=== PATIENT | male | born 1945 | race Two or more races ===

== ENCOUNTER 2024-04-04 20:35 | Inpatient (IN) | payer MEDICARE, OTHER, SELFPAY ==
[2024-04-04] VITALS (7 sets, daily range): BP systolic 115–154; BP diastolic 54–102
[2024-04-04 17:05] LABS: % Basophils 0.6 % (0-2); % Eosinophils 0.8 % (0-6); % Immature Granulocytes 0.6 % (0-0.5); % Lymphocytes 13.7 % (20.5-51.1); % Monocytes 7.4 % (1.7-9.3); % Neutrophils 76.9 % (42.2-75.2); Absolute Basophils 0.1 10^3/uL (0-0.2); Absolute Eosinophils 0.1 10^3/uL (0-0.7); Absolute Immature Granulocytes 0.1 10^3/uL (0-0.05); Absolute Lymphocytes 2.2 10^3/uL (1.2-3.4); Absolute Monocytes 1.2 10^3/uL (0.1-0.6); Absolute Neutrophils 12.6 10^3/uL (1.4-6.5); Hematocrit 33.1 % (39.0-52.0); Hemoglobin 10.9 g/dL (13.0-18.0); Mean Corp Hgb Conc. 32.9 g/dL (33.0-37.0); Mean Corpuscular Hgb 29.3 pg (27.0-31.0); Mean Platelet Volume 8.8 fL (7.4-10.4); Nucleated Red Blood Cells % 0 % (-); Platelet Count 515 10^3/uL (130-400); Red Blood Cell Count 3.72 10^6/uL (4.70-6.10); Red Cell Dist. Width 14.2 % (11.5-14.5); White Blood Cell Count 16.3 10^3/uL (4.8-10.8)
[2024-04-04 17:14] LABS: Lactic Acid 1.1 mmol/L (0.7-2.0)
[2024-04-04 17:17] LABS: ALT (SGPT) 16 U/L (0-50); AST (SGOT) 22 U/L (17-59); Albumin 3.5 g/dl (3.5-5.0); Alkaline Phosphatase 89 U/L (38-126); Blood Urea Nitrogen 20 mg/dl (9-20); Calcium 9.4 mg/dl (8.4-10.2); Carbon Dioxide 29 mmol/L (22-30); Chloride 94 mmol/L (98-107); Glucose 95 mg/dl (70-99); Sodium 136 mmol/L (135-145); Total Bilirubin 0.5 mg/dl (0.2-1.3); Total Protein 6.6 g/dl (6.3-8.2); eGFR > 60.00
--- NOTE | 2024-04-04 18:46 | ED.GENMED ---
History of Present Illness
General
Chief Complaint: Abnormal Lab Value
Source: records, family and ambulance crew
Time Seen by Provider: 04/04/24 17:56
History of Present Illness
History of Present Illness:
78yoM with a history of hypertension, hyperlipidemia, insulin-dependent diabetes, peripheral vascular disease, and CKD presenting via EMS for abnormal outpatient labs. Patient is currently a resident at [facility]. Patient started to become
confused and sluggish today which he typically gets when he has an infection. He had outpatient blood work today which showed a leukocytosis. He was sent to the ED for evaluation. Daughter states he has a history of chronic wounds to his
bilateral legs. He has had multiple recent admissions at [facility] for wound infections.
Phy Exam
General Physical Exam
General Presentation: no apparent distress
General age: appears stated age
General Skin: warm and dry
General Habitus: normal
General Mental: alert
Cardiovascular Exam
Cardiovascular Exam: regular rate/rhythm
Pulmonary Exam
Pulmonary Exam: lungs clear, no respiratory distress, no crackles and no wheezing
Neurological Exam
Neurological Exam: alert and confused
Skin Exam
Skin Exam: warm/dry and other (Open wounds noted to bilateral lower extremities with foul smelling discharge)
Psychiatric Exam
Psychiatric Exam: agitated
Course
Orders/Labs/Results
Orders:
Orders
04/04/24 16:51
Complete Blood Count/With Diff Urgent
Comprehensive Metabolic Panel Urgent
Lactic Acid Urgent
04/04/24 19:05
0.9% Sodium Chloride 1000 ml [Nss] 1,000 ml IV BOLUS
Piperacillin/Tazo 4.5 Gram [Zosyn] 4.5 gram in 100 ml IV NOW
04/04/24 19:45
Blood Culture Urgent
MICHEAL Source: Blood/Venous
Specimen Description:
Wound Culture [Wound/Abscess/Other Culture] Urgent
MICHEAL Source: Foot
Specimen Description: Right
Date Specimen was Collected: 04/04/24
Time Specimen was Collected: 19:15
04/04/24 19:46
Urinalysis Reflex To Culture Urgent
Date Specimen was Collected: 04/04/24
Time Specimen was Collected: 19:42
Urine Microscopic Reflex Cult Urgent
Urine Culture Urgent
MICHEAL Source: U
Specimen Description:
Date Specimen was Collected: 04/04/24
Time Specimen was Collected: 19:42
04/04/24 20:11
Vancomycin [Vancocin] 2,000 mg 0.9% Sodium Chloride 500 ml [Nss] 500 ml IV NOW
04/04/24 20:23
Admit/Transfer Patient As Directed
Co-Sign Provider:
Level of Care: Inpatient admission
Assign to:: Medical/Surgical
Physician / Group: ezra
Diagnosis: b/l wound infection
Reason for Hospitalization: b/l wound infection
Expected length of stay greater than two midnights?: Yes
ELOS- Estimated Length of Stay in days: 3
I certify the patient meets the requirements for IP care: Yes
PRN Pain Medication Management As Directed
May give lesser potent ordered pain med per pt: Yes
preference::
Protocol:: Medication orders for pain may be administered in a
manner that supports deferring to patient preference
when the pt is:
- Requesting an ordered lesser potent pain medication.
Least to most potent pain medications are defined
as: acetaminophen < NSAID < tramadol < opioids
(morphine, oxycodone, hydromorphone).
- Requesting a lesser dose of the same medication IF
ORDERED.
- Requesting a less intrusive route of administration
if both routes are prescribed by the provider (PO <
IV).
04/04/24 20:25
Code Status As Directed
Resuscitation Status: Full Code
04/04/24 20:28
Medical Records Request [Obtain Records] As Directed
Dates of Information to be Released: all
Type of Information Requested: Entire Record
Obtain Records from: [facility]
04/04/24 21:49
Blood Culture Routine
MICHEAL Source: Blood/Venous
Specimen Description:
04/05/24 00:20
Acetaminophen [Tylenol] 650 mg PO Q6HPRN PRN
Dextrose 50%-Water [Dextrose 50% Syringe] 12.5 grams IV [id number] PRN
Glucagon [GlucaGen] 1 mg IM PRN PRN
HydrALAZINE [Apresoline] 10 mg PO TID
METFORMIN HCl [Glucophage] 1,000 mg PO BIDWMEAL
Piperacillin/Tazo 3.375 Gram [Zosyn] 3.375 gram in 50 ml IV Q6H
VANCOMYCIN Pharmacy to Dose [VANCOCIN Pharmacy to Dose] 1 each Pharmacy To Prepare [Call Pharmacy To Prepare] 0 ml IV PER PROTOCOL
insulin degludec [Tresiba FlexTouch U-100] 14 unit SC HS
zinc oxide 1 applic TOPICAL TID
04/05/24 00:20
WOUND/OSTOMY CONSULT Routine
Reason for Consult: b/l LE lymphedema/wound
Activity As Directed
Activity Level: Out of Bed-Early Mobility
Bedside Glucose Monitoring As Directed
Frequency: AC&HS
Additional Instructions:: Change to q6h if pt on TPN, tube feeding or not eating
Intake/ Output As Directed
Frequency: Per unit guidelines
Vital Signs As Directed
Frequency: Per unit guidelines
Weight As Directed
Frequency: Daily
Ot Eval And Treat Routine
Pt Eval And Treat Routine
Activity Level: As Tolerated
DX Deep Vein Thrombosis Video Routine
04/05/24 02:00
Doxazosin Mesylate [Cardura] 2 mg PO HS
Melatonin 5 mg PO HS
04/05/24 Breakfast
1800 calorie (15 carb) Diabetic
At Your Request: Non-Participating
Does patient need a safe tray?: No
Basic Metabolic Panel IN AM
Complete Blood Count/No Diff IN AM
Glycohemoglobin (HgbA1c) IN AM
04/05/24 07:30
Insulin Aspart Corrective Low [Novolog Flexpen-Low Resistance] See Protocol SC AC
04/05/24 08:00
Aspirin Low Dose EC [Aspir Low (Enteric Coated)] 81 mg PO DAILY
Carvedilol [Coreg] 25 mg PO BID
Furosemide [Lasix] 40 mg PO DAILY
Miconazole Nitrate [Desenex/Mitrazol/Zeasorb] 1 applic TOPICAL BID
Pioglitazone HCl [Actos] 15 mg PO DAILY
Tamsulosin [Flomax] 0.4 mg PO DAILY
balsam zbigniew-castor oil [Venelex] 1 applic TOPICAL BID
magnesium oxide [MagOx] 400 mg PO BID
omeprazole 20 mg PO DAILY
04/05/24 18:00
Enoxaparin Sodium [Lovenox] 40 mg SC QPM
04/06/24 06:00
Basic Metabolic Panel IN AM
Complete Blood Count/No Diff IN AM
04/07/24 06:00
Basic Metabolic Panel IN AM
Complete Blood Count/No Diff IN AM
04/08/24 06:00
Basic Metabolic Panel IN AM
Complete Blood Count/No Diff IN AM
04/09/24 06:00
Basic Metabolic Panel IN AM
Complete Blood Count/No Diff IN AM
Abnormal Lab Results
04/04/24 04/04/24
16:51 19:46
WBC 16.3 H 10^3/uL
(4.8-10.8)
RBC 3.72 L 10^6/uL
(4.70-6.10)
Hgb 10.9 L g/dL
(13.0-18.0)
Hct 33.1 L %
(39.0-52.0)
MCHC 32.9 L g/dL
(33.0-37.0)
Plt Count 515 H 10^3/uL
(130-400)
Abs Immat Gran (auto) 0.1 H 10^3/uL
(0-0.05)
Absolute Neuts (auto) 12.6 H 10^3/uL
(1.4-6.5)
Absolute Monos (auto) 1.2 H 10^3/uL
(0.1-0.6)
Immature Gran % 0.6 H %
(0-0.5)
Neutrophils % 76.9 H %
(42.2-75.2)
Lymphocytes % 13.7 L %
(20.5-51.1)
Chloride 94 L mmol/L
(98-107)
Creatinine 0.6 L mg/dL
(0.7-1.3)
Urine Ketones Trace A
(Negative)
Urine Bilirubin 1+ A
(Negative)
Urine Bacteria (Reflex) Many A
(Negative)
Urine Glucose 2+ A
(Negative)
Urine Albumin (Reflex) 1+ A
(Neg - Trace)
04/04/24 16:51
04/04/24 16:51
Vital Signs
Initial and Last Documented VS:
Initial Vital Signs
Temp Pulse Resp BP Pulse Ox
98.9 F 81 22 115/75 94
04/04/24 16:38 04/04/24 16:38 04/04/24 16:38 04/04/24 16:38 04/04/24 16:38
Last Documented Vital Signs
Temp Pulse Resp BP Pulse Ox
98.0 F 70 20 107/65 99
04/05/24 00:40 04/05/24 00:40 04/05/24 00:40 04/05/24 00:40 04/05/24 00:40
MDM/Problems Addressed
Differential Diagnosis Includes:
78yoM here with leukocytosis on outpatient labs. History is provided by [facility] staff via phone and daughter. Hx of chronic wounds to lower extremities. Recent admissions at [facility] for the wound infections. Patient is confused/sluggish
which he typically gets when he has an infection. VSS. Open wounds noted on exam with foul smelling discharge. Differential diagnosis includes but is not limited to: Wound infection, cellulitis, abscess, doubt NSTI
Initial ED plan: Labs obtained in triage which show a leukocytosis with a white count of 16. Lactate within normal limits. Wound culture and blood cultures ordered. IV Zosyn and vancomycin ordered. Will admit for further management.
*Critical Care Note
Total Time (30-74mins, 75-104mins- exclusive of procedures): Not Applicable
ED Attending Note
-
Portions of this chart may have been created with voice recognition software.� Occasional wrong word or��sound alike� substitutions may have occurred due to the inherent limitations of voice recognition software.
Discharge Plan
Departure
Patient Disposition: Admit
Date of Disposition: 04/04/24
Time of Disposition: 19:40
Presentation/result/management discussed w/ accepting MD/DO: Hospitalist
Discharge Problem:
Wound infection
Interventions
Interventions:
*Risk Screen - Suicide Last Done: 04/05/24 00:25
*General Assessment Last Done: 04/04/24 16:38
*Neglect/Abuse Screening Last Done: 04/04/24 16:38
ED- Fall Risk Assessment Last Done: 04/04/24 18:03
*ED COVID-19 Vaccine History Last Done: 04/05/24 00:25
*Nursing Disposition Last Done: 04/04/24 23:37
Discharge Date and Time
Discharge Date/Time: 04/04/24 23:37
--- NOTE | 2024-04-04 19:41 | HPS.HSE ---
Addendum entered and electronically signed by Hardeep Ocampo DO 04/04/24 20:44:
Patient seen and examined independently. Agree with findings and plan as set forth by LOGAN Go.
Patient is a 78y M with PMH significant for hypertension, DM-II and chronic LE lymphedema and wounds who presents to ED from local SNF for evaluation of LE wounds and increased confusion. History obtained primarily from his daughter at the
bedside. Patient has been followed for several years at [facility] for his chronic wounds. He was hospitalized there last about one week ago for similar issues. He was treated with Vanco / Zosyn and then discharged on Cipro. Daughter notes that his
symptoms have been worsening since discharge. She states that he had a positive nasal swab for MRSA at [facility].
Ass:
Chronic LE Lymphedema
Chronic Wounds secondary to the above
Acute Wound Infection(s)
Acute TME secondary to the above
ASCVD
DM-II
Benign Hypertension
Normocytic Anemia - ? Type / Chronicity
Chronic Heart Failure - ? Type
Plan:
Admit for further evaluation and treatment.
IV abx with Zosyn and Vancomycin for now. Reported prior positive MRSA swab.
Obtain records from [facility] for culture results, etc.
Wound Care evaluation / local care here.
Follow for clinical improvement.
Continue other usual medications for now for CHF, DM, etc.
Original Note:
Family Physician
-
Family Physician:
Chief Complaint
-
b/l Le wound
History of Present Illness
78yoM with a history of hypertension, hyperlipidemia, insulin-dependent diabetes, peripheral vascular disease, and CKD presented to us with worsening confusion, weak and tired for past few days. patient was noted to have elevated wbc. his wound was
not getting better. patient was just at [facility] with b/l wound infection. patient received vanco and Zosyn in ER, but infectious disease changed the abx to Linezolid and cefepime. he was discharge to rehab on Cipro. daughter stated, his wound did
not got better. he was noted very weak and confused today. his wbc's were elevated which prompted them to send him to the hospital. denied any fever, chills, chest pain, sob.denied MAHAN, dizzy or syncopal episode. denied abdominal pain,n,v,d. denied
dysuria or hematuria.
daughter wants us to following the wound care recommendation from [facility]. he has allergic multiple wound care agents.
patient received iv vanco and Zosyn in ER. admitting for further management.
Medical History
Past Medical History
Past Medical History: Reports Other
Additional Past Medical History:
CKD
BPH
cellulitis
GERD
HLD
lymphedema
PVD
MO
CAD
dermatitis
htn
CHF
osteo
type 2 DM
FRANCESCO
Past Surgical History: Reports Other
Additional Past Surgical History:
cardiac stents
Social History
Tobacco: Former Smoker
Alcohol: Former
Drug: None
Personal: Single
Living: Other (rehab)
Family History
Family History: Not pertinent
Allergies / Home Medications
Allergies reflects when Allergies were last updated in [employer].
Home Medications with original date entered in [employer]
Allergy/Medication List:
Allergies
Allergy/AdvReac Type Severity Reaction Status Date / Time
acetic acid Allergy Unknown Verified 04/04/24 17:46
hydromorphone Allergy Unknown Verified 04/04/24 17:46
iodine Allergy Unknown Verified 04/04/24 17:46
morphine Allergy Unknown Verified 04/04/24 17:46
Home Medications
acetaminophen 325 mg tablet 650 mg PO Q6HPRN PRN mild pain 04/04/24
aspirin 81 mg tablet,delayed release 81 mg PO DAILY 04/04/24
balsam zbigniew-castor oil topical ointment (Venelex topical ointment) 1 applic topical BID 04/04/24
carvedilol 25 mg tablet 25 mg PO BID 04/04/24
doxazosin 2 mg tablet 2 mg PO HS 04/04/24
ergocalciferol (vitamin D2) 1,250 mcg (50,000 unit) capsule 1,250 mcg PO MO 04/04/24
furosemide 40 mg tablet 40 mg PO DAILY 04/04/24
hydralazine 10 mg tablet 10 mg PO TID 04/04/24
insulin aspart U-100 100 unit/mL (3 mL) subcutaneous pen 4 - 10 sliding scale dose SC ACHS 04/04/24
insulin degludec 100 unit/mL (3 mL) subcutaneous pen (Tresiba FlexTouch U-100 insulin) 28 unit SC HS 04/04/24
magnesium oxide 400 mg (241.3 mg magnesium) tablet (MagOx) 400 mg PO BID 04/04/24
melatonin 5 mg tablet 5 mg PO HS 04/04/24
metformin 1,000 mg tablet 1,000 mg PO BIDWMEAL 04/04/24
miconazole nitrate 2 % topical powder (Antifungal (miconazole)) 1 applic topical BID 04/04/24
miconazole nitrate 2 % topical powder (Antifungal (miconazole)) 1 applic topical BID 04/04/24
omeprazole 20 mg tablet,delayed release 20 mg PO DAILY 04/04/24
pioglitazone 15 mg tablet 15 mg PO DAILY 04/04/24
tamsulosin 0.4 mg capsule 0.4 mg PO DAILY 04/04/24
zinc oxide 12 % topical cream 1 applic topical TID 04/04/24
Review of Systems
-
Constitutional: Reports No Symptoms
EENT: Reports No Symptoms
Respiratory: Reports No Symptoms
Cardiac: Reports No Symptoms
Abdomen/GI: Reports No Symptoms
: Reports No Symptoms
Musculoskeletal: Reports No Symptoms
Skin: Reports Other (b/l LE lymphedema, wound)
Neurological: Reports No Symptoms
Endocrine: Reports No Symptoms
Hematologic/Lymphatic: Reports No Symptoms
Psych: Reports No Symptoms
Physical Exam
Vital Signs
Vital Signs
Temp Pulse Resp BP Pulse Ox
98.9 F 82 21 143/54 93
04/04/24 16:38 04/04/24 17:00 04/04/24 17:00 04/04/24 17:00 04/04/24 16:40
Physical Exam
General: Well Developed, Well Nourished and No Apparent Distress
HEENT: NormoCephalic, Moist mucous membranes and Atraumatic
Respiratory: Clear
Cardiac: S1/S2 and Regular Rhythm; No Murmur or Rub
GI: Soft, Non Tender, Non Distended and Normal Bowel Sounds; No Organomegaly
Rectal: Deferred by Provider
Musculoskeletal: No Clubbing, No Cyanosis and No Edema
Skin: No Rash
Neuro: Nonfocal/grossly intact
Laboratory Results
-
04/04/24 16:51
04/04/24 16:51
Laboratory Results
Lactic Acid 1.1 mmol/L (0.7-2.0) 04/04/24 16:51
Total Bilirubin 0.5 mg/dl (0.2-1.3) 04/04/24 16:51
AST 22 U/L (17-59) 04/04/24 16:51
ALT 16 U/L (0-50) 04/04/24 16:51
Alkaline Phosphatase 89 U/L (38-126) 04/04/24 16:51
Data Reviewed
-
Lab Data: Labs Reviewed by me
Impression/Plan
-
#metabolic encephalopathy likely from b/l LE wound infection/chronic lymphedema
-wbc 16.3
-iv Zosyn and vanco continued
-wound car3 consulted
-Tylenol prn for fever
-curve wbc's
-obtain medical records from [facility]
-no narcotics as per family, only Tylenol, Motrin for pain
-blood and wound culture sent from ER
#anemia likely chronic
-hgb 10.9
-no active bleeding
-ctm
#hxt of CAD
-s/p cardiac stents
-asa continued
#essential htn
-Coreg, doxazosin,hydralazine with hold parameter continued
#hxt of CHF
-patient not in acute exacerbation
-strict I &O
-daily weight
-Lasix continued
#type 2 DM
-sliding scale
-Tresiba 14u at hs
-metformin,actos continued
#GERD
-PPI continued
#BPH
-Flomax continued
#DVT Prophylaxis
-Lovenox
#CODE status
-full code
[2024-04-04] MEDS: NSS 1000 IV (19:43)
[2024-04-04] MEDS: ZOSYN 100 IV (19:44)
[2024-04-04 20:27] LABS: Urine Albumin 1+ (Neg - Trace); Urine Bilirubin 1+ (Negative); Urine Character Clear (Clear); Urine Color Yellow; Urine Glucose 2+ (Negative); Urine Ketone Trace (Negative); Urine Leukocyte Negative (Negative); Urine Nitrite Negative (Negative); Urine Occult Blood Negative (Negative); Urine Specific Gravity 1.025 (<1.030); Urine Urobilinogen Negative (Neg - 1+)
[2024-04-04 20:37] LABS: Urine Bacteria Many (Negative); Urine Red Blood Cell 0-2 /HPF (0-2); Urine White Cell 0-2 /HPF (0-5)
[2024-04-04] MEDS: VANCOCIN 540 MG IV (21:39)
[2024-04-05 00:40] VITALS: BP 107/65
--- NOTE | 2024-04-05 00:47 | PTCARENOTE ---
Pt. received from [facility], awake, alert, confused, pulled over from stretcher, b/l legs macerated and bleeding, dressings changed, stage 2 buttocks wound, bed alarm intact, call dias within reach.
[2024-04-05] MEDS: APRESOLINE PO (02:38)
[2024-04-05] MEDS: CARDURA PO (02:39)
[2024-04-05] MEDS: MELATONIN PO (02:39)
[2024-04-05] MEDS: ZOSYN 50 IV ×4 (04:09→23:13)
[2024-04-05] MEDS: FLUSH (NSS) 2 FLUSH IV (04:10)
[2024-04-05 07:05] LABS: Hematocrit 31.4 % (39.0-52.0); Hemoglobin 10.5 g/dL (13.0-18.0); Mean Corp Hgb Conc. 33.4 g/dL (33.0-37.0); Mean Corpuscular Volume 89.7 fL (80.0-94.0); Mean Platelet Volume 8.7 fL (7.4-10.4); Platelet Count 448 10^3/uL (130-400); Red Cell Dist. Width 14.2 % (11.5-14.5); White Blood Cell Count 15.8 10^3/uL (4.8-10.8)
[2024-04-05 07:27] VITALS: BP 150/56
[2024-04-05 07:29] LABS: Blood Urea Nitrogen 18 mg/dl (9-20); Carbon Dioxide 26 mmol/L (22-30); Chloride 97 mmol/L (98-107); Estimated Creatinine Clearance 79 ml/min; Glucose 109 mg/dl (70-99); Potassium 3.8 mmol/L (3.5-5.1); Sodium 135 mmol/L (135-145); eGFR > 60.00
--- NOTE | 2024-04-05 07:45 | PHA.VAN.IN ---
Assessment
- Assessment
Renal Function: Unknown baseline
Renal Function may be Overestimated due to: age
AUC Dosing Plan
- Dosing Variables
Dosing Weight (kg): 84.368
Dosing CrCl (ml/min): 79
Vd coefficient (L/kg): 0.7
- Empiric Dosing
Initial / Loading Dose: 2000mg
Maintenance Regimen: 1000mg q12h
Estimated AUC (mcg*h/mL): 501
Estimated Peak (mcg*h/mL): 29.8
Estimated Trough (mcg/ml): 13.8
Estimated Half Life (H): 9.9
- Monitoring
No levels ordered at this time: consider at steady state
Pharmacokinetics Vancomycin I
- -
Patient Age: 78
Patient Sex: Male
Vancomycin Day #: 1
Indication: Skin And Soft Tissue
Requesting Provider: Lorene [facility]
Height / Weight:
Height 5 ft 9 in
Actual Weight 84.368 kg
IBW in k.7
- Vital Signs / Lab Results
Temp Pulse Resp BP Pulse Ox
98.0 F 70 20 107/65 99
04/05/24 00:40 04/05/24 00:40 04/05/24 00:40 04/05/24 00:40 04/05/24 00:40
Lab Results - Hematology
04/04/24 04/05/24
16:51 06:51
WBC 16.3 H 15.8 H
Lab Results - Chemistry
04/04/24 04/05/24
16:51 06:51
BUN 20 18
Creatinine 0.6 L 0.8
Estimated Creat Clear 79
Albumin 3.5
04/04/24
16:51
Lactic Acid 1.1
Lab Results - Urine
04/04/24
19:46
Urine Nitrite (Reflex) Negative
Leukocyte Esterase Rfl Negative
Urine WBC (Reflex) 0-2
Urine Bacteria (Reflex) Many A
[2024-04-05 08:11] LABS: Glucose - Point of Care 110 mg/dl (70-99)
[2024-04-05] MEDS: FLOMAX 0.4 MG PO (08:17)
[2024-04-05] MEDS: NOVOLOG FLEXPEN-LOW RESISTANCE SC (08:17)
[2024-04-05] MEDS: APRESOLINE 10 MG PO ×3 (08:17→23:22)
[2024-04-05] MEDS: LASIX 40 MG PO (08:18)
[2024-04-05] MEDS: MAG-TAB SR 84 MG PO ×2 (08:18→21:59)
[2024-04-05] MEDS: PROTONIX 40 MG PO (08:18)
[2024-04-05] MEDS: ACTOS 15 MG PO (08:18)
[2024-04-05] MEDS: GLUCOPHAGE 1000 MG PO (08:18)
[2024-04-05] MEDS: ASPIR LOW (ENTERIC COATED) 81 MG PO (08:18)
[2024-04-05] MEDS: DESENEX/MITRAZOL/ZEASORB 1 APPLIC TOPICAL ×2 (09:00→22:00)
[2024-04-05 10:14] LABS: Glycohemoglobin (HgbA1c) 8.1 % (4.0-5.6)
--- NOTE | 2024-04-05 10:29 | W.PN.HOSP.TC ---
Today's Communication/Plan
-
See PN
Assessment / Plan
Assessment / Plan
78yo M with PMHx of DM, HTN, chronic LE wounds with lymphedema, HTN, CHF sent from rehab with AMS, concern for sepsuis 2/2 LE cellulitis. Due to progressive weakness and leukocytosis - brought to ED. Patient also has a long Hx of exessive sleepness
and was not compliant with CPAP at home declining it
A/P:
#sepsis 2/2 toxic metabolic encephalopathy most likely 2/2 LE cellulitis 2/2 PAD
Followed in [facility] - request records
recent admission to [facility] with LE cellulitis, MRSA positive
As per patients daughter - had extensive W/U with eval by [facility] and as per her - patient with not significant PAD
[facility] plastic Sx was managing the patient
Wound care
Bcx and wound Cx sent
Chest XR
#UTI
Recent UTI in [facility]
follow Ucx
#FRANCESCO
non-compliant with BiPAP
Check ABG, might need BiPAP at HS
#Anemia
anemia w/u, check FOBT
#CHF unspecified
hold Lasix until mentation improved
#DM type 2 with circulatory complications
Hold oral hypoglycemics
Accuhecks, Insulin SS, bolus insulin decreased by 50%
#Essential HTN
#cheronic hypomagnesemia
#BPH
#CAD s/p PCI
watch for retention with blaadder scan
cont home meds
DVT ppx lovenox
FUll code
I have spent at least 59min reviewing chart, test results, communication with consultants, family and direct patient care
Anticipated Discharge: > 48 hours
Subjective/Interval History
-
Date of Service: April 05, 2024
Objective Data
-
Labs:
Laboratory Results
04/05/24 04/05/24
06:51 10:21
WBC 15.8 H
Hgb 10.5 L
Hct 31.4 L
Plt Count 448 H
HCO3 Pending
Sodium 135
Potassium 3.8
Chloride 97 L
Carbon Dioxide 26
BUN 18
Creatinine 0.8
Glucose 109 H
Calcium 9.0
Vital Signs:
Vital Signs
Temp Pulse Resp BP Pulse Ox
98.1 F 79 20 150/56 96
04/05/24 07:27 04/05/24 07:27 04/05/24 07:27 04/05/24 07:27 04/05/24 07:27
I&O
04/04/24 04/05/24 04/06/24
06:59 06:59 06:59
Intake Total 50 / 50
Balance 50 / 50
[2024-04-05 11:36] LABS: Glucose - Point of Care 163 mg/dl (70-99)
[2024-04-05 11:55] LABS: B.E. 4.7 mmol/L; HCO3 28.2 mmol/L (21-28); O2 Saturation % 99.3 % (94-98); PCO2 37 mmHg (35-48); PO2 107 mmHg (83-108); pH 7.49 (7.35-7.45)
[2024-04-05] MEDS: COREG 25 MG PO ×2 (12:05→21:58)
[2024-04-05 12:51] LABS: Procalcitonin 0.08 ng/ml (0.0-0.25)
[2024-04-05 13:09] VITALS: BP 146/62; PULSE 89; PULSE 90; O2SAT 94
[2024-04-05] MEDS: NOVOLOG FLEXPEN-LOW RESISTANCE 1 UNITS SC (13:33)
--- NOTE | 2024-04-05 15:11 | CM ---
IA completed with pts daughter via phone.
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
PLAN; Return to [facility] when medically cleared.
[2024-04-05 15:18] VITALS: BP 127/53
[2024-04-05 16:10] LABS: COVID-19 Antigen Negative (Negative)
[2024-04-05 17:02] LABS: Glucose - Point of Care 217 mg/dl (70-99)
[2024-04-05] MEDS: NOVOLOG FLEXPEN-LOW RESISTANCE 2 UNITS SC (17:02)
[2024-04-05] MEDS: LOVENOX 40 MG SC (17:05)
[2024-04-05] MEDS: VANCOCIN 200 IV (17:06)
[2024-04-05 22:00] LABS: Glucose - Point of Care 146 mg/dl (70-99)
[2024-04-05 23:00] VITALS: BP 119/42
[2024-04-05] MEDS: LANTUS 0.14 UNITS SC (23:14)
[2024-04-05] MEDS: MELATONIN 5 MG PO (23:15)
[2024-04-05] MEDS: CARDURA 2 MG PO (23:21)
[2024-04-06] MEDS: ZOSYN 50 IV ×4 (04:53→21:22)
[2024-04-06] MEDS: VANCOCIN 200 IV ×2 (05:28→17:37)
[2024-04-06 06:00] VITALS: BMI 28.7
[2024-04-06 07:00] VITALS: BP 145/52
[2024-04-06 07:51] LABS: Glucose - Point of Care 186 mg/dl (70-99)
[2024-04-06 08:20] LABS: ALT (SGPT) 16 U/L (0-50); AST (SGOT) 23 U/L (17-59); Alkaline Phosphatase 78 U/L (38-126); Blood Urea Nitrogen 17 mg/dl (9-20); Calcium 8.7 mg/dl (8.4-10.2); Carbon Dioxide 26 mmol/L (22-30); Chloride 97 mmol/L (98-107); Estimated Creatinine Clearance 79 ml/min; Glucose 175 mg/dl (70-99); Iron 40 ug/dl (49-181); Magnesium 1.8 mg/dl (1.6-2.3); Sodium 135 mmol/L (135-145); Total Bilirubin 0.7 mg/dl (0.2-1.3); Total Protein 5.8 g/dl (6.3-8.2); eGFR > 60.00
[2024-04-06] MEDS: NOVOLOG FLEXPEN-LOW RESISTANCE 1 UNITS SC ×3 (08:22→17:36)
[2024-04-06] MEDS: PROTONIX 40 MG PO (08:23)
[2024-04-06] MEDS: COREG 25 MG PO ×2 (08:23→21:00)
[2024-04-06] MEDS: MAG-TAB SR 84 MG PO ×2 (08:23→21:00)
[2024-04-06] MEDS: FLOMAX 0.4 MG PO (08:23)
[2024-04-06] MEDS: DESENEX/MITRAZOL/ZEASORB 1 APPLIC TOPICAL ×2 (08:23→21:00)
[2024-04-06] MEDS: ASPIR LOW (ENTERIC COATED) 81 MG PO (08:23)
[2024-04-06] MEDS: APRESOLINE 10 MG PO ×3 (08:23→21:10)
[2024-04-06 08:30] LABS: Percent Saturation 22 % (20-50); Total Iron Binding Capacity 176 ug/dl (261-462)
--- NOTE | 2024-04-06 08:37 | PHA.VAN.FU ---
Vancomycin Assessment / Plan
- Assessment
Renal Function: Stable
In the past 24 hrs, patient has been: Afebrile
Concomitant Antimicrobials: ZOSYN
- Dosing Plan
Continue: 1000MG Q12H
- Monitoring Plan
Peak Level: 04/07 @2030
Trough Level: 04/08 @0530
- Follow Up
Pharmacy will continue to follow.
Vancomycin Follow UP
- -
Patient Age: 78
Patient Sex: Male
Vancomycin Day #: 2
Indication: Skin And Soft Tissue
Requesting Provider: Lorene [facility]
Height / Weight:
Height 5 ft 9 in
Actual Weight 88.167 kg
IBW in k.7
- Vital Signs / Lab Results
Temp Pulse Resp BP Pulse Ox
98.6 F 71 16 145/52 91
04/06/24 07:00 04/06/24 07:00 04/06/24 07:00 04/06/24 07:00 04/06/24 07:00
Lab Results - Hematology
04/04/24 04/05/24
16:51 06:51
WBC 16.3 H 15.8 H
Lab Results - Chemistry
04/04/24 04/05/24 04/06/24
16:51 06:51 07:24
BUN 20 18 17
Creatinine 0.6 L 0.8 0.8
Estimated Creat Clear 79 79
Albumin 3.5 3.0 L
04/04/24
16:51
Lactic Acid 1.1
Microbiology Results
04/04/24 19:45 Gram Stain - Preliminary
Foot - Right
04/04/24 21:49 Blood Culture - Preliminary
Blood/Venous No Growth in 24 hours- Final report to follow
04/04/24 19:45 Blood Culture - Preliminary
Blood/Venous No Growth in 24 hours- Final report to follow
04/05/24 15:49 Influenza Types A & B (JEANNIE) - Final
Nasal Swab Negative for Influenza A & B, NAAT
Negative results must be combined with clinical observations
and patient history.
Nucleic Acid Amplification test (NAAT)performed on the
[employer] platform.
[2024-04-06 09:11] LABS: % Basophils 0.7 % (0-2); % Eosinophils 2.4 % (0-6); % Immature Granulocytes 0.5 % (0-0.5); % Lymphocytes 14.4 % (20.5-51.1); Absolute Basophils 0.1 10^3/uL (0-0.2); Absolute Eosinophils 0.3 10^3/uL (0-0.7); Absolute Immature Granulocytes 0.1 10^3/uL (0-0.05); Absolute Lymphocytes 1.8 10^3/uL (1.2-3.4); Hematocrit 31.4 % (39.0-52.0); Hemoglobin 10.8 g/dL (13.0-18.0); Mean Corp Hgb Conc. 34.4 g/dL (33.0-37.0); Mean Corpuscular Hgb 30.2 pg (27.0-31.0); Mean Corpuscular Volume 87.7 fL (80.0-94.0); Mean Platelet Volume 10.1 fL (7.4-10.4); Nucleated Red Blood Cells % 0 % (-); Platelet Count 385 10^3/uL (130-400); Red Blood Cell Count 3.58 10^6/uL (4.70-6.10); Red Cell Dist. Width 13.9 % (11.5-14.5); Reticulocyte Count 2.5 % (0.4-2.8); White Blood Cell Count 12.2 10^3/uL (4.8-10.8)
[2024-04-06 09:47] LABS: Folate 6.5 ng/ml (2.76-20); Vitamin B12 639 pg/ml (239-931)
[2024-04-06 11:22] LABS: Glucose - Point of Care 188 mg/dl (70-99)
[2024-04-06] MEDS: LASIX 40 MG PO (11:48)
--- NOTE | 2024-04-06 12:02 | W.PN.HOSP.TC ---
Today's Communication/Plan
-
cont Vanco/Zosyn
Lotrimin
Assessment / Plan
Assessment / Plan
78yo M with PMHx of DM, HTN, chronic LE wounds with lymphedema, HTN, CHF sent from rehab with AMS, concern for sepsuis 2/2 LE cellulitis. Due to progressive weakness and leukocytosis - brought to ED. Patient also has a long Hx of excessive sleekness
and was not compliant with CPAP at home declining it. Mentation much improved on Abx
A/P:
#sepsis 2/2 toxic metabolic encephalopathy most likely 2/2 LE cellulitis 2/2 PAD
Followed in [facility] - request records
recent admission to [facility] (discharged 1 week before current admission) with LE cellulitis, MRSA positive
As per patients daughter - had extensive W/U with eval by [facility] and as per her - patient with not significant PAD
[facility] plastic Sx was managing the patient
Wound care
Bcx NTD
wound Cx GNB and S.aureus pending further ID
Chest XR neg for pneumonia
#b/l feet fungal infection
#Excessive nails
As per podiatry - no appropriate instrumentation in the hospital for nail care
Lotrimin BID
#UTI ruled out
Recent UTI in [facility]
Ucx neg
#FRANCESCO
non-compliant with CPAP
ABG w/o CO2 retention
cont home CPAP
#Anemia of chronic disease
check FOBT, follow CBC
#DM type 2 with circulatory complications
Hold oral hypoglycemics
Accuhecks, Insulin SS, bolus insulin decreased by 50%
#CHF unspecified
#Essential HTN
#cheronic hypomagnesemia
#BPH
#CAD s/p PCI
watch for retention with bladder scan
cont home meds
DVT ppx lovenox
FUll code
I have spent at least 59min reviewing chart, test results, communication with consultants, family and direct patient care
Anticipated Discharge: > 48 hours
Subjective/Interval History
-
Date of Service: April 06, 2024
Objective Data
-
Labs:
Laboratory Results
04/06/24
07:24
WBC 12.2 H
Hgb 10.8 L
Hct 31.4 L
Plt Count 385
Sodium 135
Potassium 4.0
Chloride 97 L
Carbon Dioxide 26
BUN 17
Creatinine 0.8
Glucose 175 H
Calcium 8.7
Total Bilirubin 0.7
AST 23
ALT 16
Alkaline Phosphatase 78
Vital Signs:
Vital Signs
Temp Pulse Resp BP Pulse Ox
98.6 F 71 16 145/52 91
04/06/24 07:00 04/06/24 07:00 04/06/24 07:00 04/06/24 07:00 04/06/24 07:00
I&O
04/05/24 04/06/24 04/07/24
06:59 06:59 06:59
Intake Total 50 / 50 850 / 850
Balance 50 / 50 850 / 850
[2024-04-06 15:00] VITALS: BP 144/60
[2024-04-06 16:36] LABS: Glucose - Point of Care 179 mg/dl (70-99)
[2024-04-06] MEDS: LOVENOX 40 MG SC (17:56)
[2024-04-06 21:00] VITALS: BP 153/74
[2024-04-06] MEDS: LOTRIMIN 1% CREAM 1 APPLIC TOPICAL (21:00)
[2024-04-06] MEDS: CARDURA 2 MG PO (21:10)
[2024-04-06] MEDS: MELATONIN 5 MG PO (21:10)
[2024-04-06 21:34] LABS: Glucose - Point of Care 199 mg/dl (70-99)
[2024-04-06] MEDS: LANTUS 0.14 UNITS SC (21:45)
[2024-04-06 23:29] VITALS: BP 122/54
[2024-04-07] MEDS: ZOSYN 50 IV ×4 (03:23→23:09)
[2024-04-07] MEDS: VANCOCIN 200 IV ×2 (05:03→17:13)
[2024-04-07 05:41] VITALS: BMI 29.3
[2024-04-07 07:40] VITALS: BP 93/69
[2024-04-07 07:46] LABS: Glucose - Point of Care 193 mg/dl (70-99)
[2024-04-07] MEDS: NOVOLOG FLEXPEN-LOW RESISTANCE 1 UNITS SC ×2 (08:35→16:26)
[2024-04-07] MEDS: MAG-TAB SR 84 MG PO ×2 (08:37→23:08)
[2024-04-07] MEDS: LASIX PO (08:38)
[2024-04-07] MEDS: COREG PO (08:39)
[2024-04-07] MEDS: FLOMAX 0.4 MG PO (08:39)
[2024-04-07] MEDS: APRESOLINE PO (08:40)
[2024-04-07] MEDS: PROTONIX 40 MG PO (08:40)
[2024-04-07] MEDS: ASPIR LOW (ENTERIC COATED) 81 MG PO (08:40)
[2024-04-07] MEDS: DESENEX/MITRAZOL/ZEASORB 1 APPLIC TOPICAL ×2 (08:41→23:08)
[2024-04-07] MEDS: LOTRIMIN 1% CREAM TOPICAL ×2 (09:03→23:07)
--- NOTE | 2024-04-07 10:52 | W.PN.HOSP.TC ---
Today's Communication/Plan
-
cont ABx pending final wound Cx - then switch to oral and d/c for outpatient plasic f/u
Assessment / Plan
Assessment / Plan
78yo M with PMHx of DM, HTN, chronic LE wounds with lymphedema, HTN, CHF sent from rehab with AMS, concern for sepsuis 2/2 LE cellulitis. Due to progressive weakness and leukocytosis - brought to ED. Patient also has a long Hx of excessive sleekness
and was not compliant with CPAP at home declining it. Mentation much improved on Abx
A/P:
#sepsis 2/2 toxic metabolic encephalopathy most likely 2/2 LE cellulitis 2/2 PAD
Followed in [facility] - request records
recent admission to [facility] (discharged 1 week before current admission) with LE cellulitis, MRSA positive
As per patients daughter - had extensive W/U with eval by [facility] and as per her - patient with not significant PAD
[facility] plastic Sx was managing the patient, this advised to be continued upon d/c
Wound care
Bcx NTD
wound Cx GNB and MRSA pending further ID
Chest XR neg for pneumonia
#b/l feet fungal infection
#Excessive nails
As per podiatry - no appropriate instrumentation in the hospital for nail care
Lotrimin BID
#UTI ruled out
Recent UTI in [facility]
Ucx neg
#FRANCESCO
non-compliant with CPAP
ABG w/o CO2 retention
cont home CPAP
#Anemia of chronic disease
check FOBT, follow CBC
#DM type 2 with circulatory complications
Hold oral hypoglycemics
Accuhecks, Insulin SS, bolus insulin decreased by 50%
#CHF unspecified
#Essential HTN
#cheronic hypomagnesemia
#BPH
#CAD s/p PCI
watch for retention with bladder scan
cont home meds
DVT ppx lovenox
FUll code
I have spent at least 39min reviewing chart, test results, communication with consultants, family and direct patient care
Anticipated Discharge: 24 - 48 hours
Subjective/Interval History
-
Date of Service: April 07, 2024
Objective Data
-
Labs:
Laboratory Results
04/07/24
10:25
WBC Pending
Hgb Pending
Hct Pending
Plt Count Pending
Sodium Pending
Potassium Pending
Chloride Pending
Carbon Dioxide Pending
BUN Pending
Creatinine Pending
Glucose Pending
Calcium Pending
Vital Signs:
Vital Signs
Temp Pulse Resp BP Pulse Ox
98.3 F 80 17 93/69 93
04/07/24 07:40 04/07/24 07:40 04/07/24 07:40 04/07/24 07:40 04/07/24 07:40
I&O
04/06/24 04/07/24 04/08/24
06:59 06:59 06:59
Intake Total 850 / 850 600 / 600
Balance 850 / 850 600 / 600
Review of Systems
-
History Source: Patient
All other systems: Reviewed and negative
Physical Exam
-
General: No Apparent Distress
HEENT: Normocephalic
Respiratory: Clear to Auscultation
GI: Soft, Nontender and Nondistended
Skin: Warm
Neuro: Awake, Alert, Oriented and AO x 3
Psych: Calm and Apparent Dementia
[2024-04-07 10:55] LABS: % Basophils 0.7 % (0-2); % Eosinophils 3.2 % (0-6); % Immature Granulocytes 0.5 % (0-0.5); % Lymphocytes 11.1 % (20.5-51.1); % Monocytes 7.5 % (1.7-9.3); Absolute Basophils 0.1 10^3/uL (0-0.2); Absolute Eosinophils 0.4 10^3/uL (0-0.7); Absolute Immature Granulocytes 0.1 10^3/uL (0-0.05); Absolute Lymphocytes 1.4 10^3/uL (1.2-3.4); Absolute Neutrophils 9.7 10^3/uL (1.4-6.5); Hematocrit 32.3 % (39.0-52.0); Hemoglobin 10.8 g/dL (13.0-18.0); Mean Corp Hgb Conc. 33.4 g/dL (33.0-37.0); Mean Corpuscular Hgb 30.4 pg (27.0-31.0); Mean Platelet Volume 9.1 fL (7.4-10.4); Nucleated Red Blood Cells % 0 % (-); Platelet Count 489 10^3/uL (130-400); Red Blood Cell Count 3.55 10^6/uL (4.70-6.10); White Blood Cell Count 12.6 10^3/uL (4.8-10.8)
[2024-04-07] MEDS: DAKIN'S SOLUTION 0.125% 1/4 STRENGTH 473 ML TOPICAL (12:04)
[2024-04-07 12:08] VITALS: BP 156/66
[2024-04-07 12:27] LABS: Blood Urea Nitrogen 13 mg/dl (9-20); Calcium 8.9 mg/dl (8.4-10.2); Carbon Dioxide 26 mmol/L (22-30); Chloride 93 mmol/L (98-107); Estimated Creatinine Clearance 79 ml/min; Glucose 257 mg/dl (70-99); Magnesium 1.7 mg/dl (1.6-2.3); Potassium 4.2 mmol/L (3.5-5.1); Sodium 133 mmol/L (135-145); eGFR > 60.00
--- NOTE | 2024-04-07 12:48 | WOUNDNOTE ---
L KOO/ANKLE (ANTERIOR)
--- NOTE | 2024-04-07 12:48 | WOUNDNOTE ---
R ANKLE/CALF (MEDIAL)
--- NOTE | 2024-04-07 12:49 | WOUNDNOTE ---
L ANKLE/CALF (POSTERIOR LATERAL)
--- NOTE | 2024-04-07 12:49 | WOUNDNOTE ---
L ANKLE/CALF (LATERAL)
--- NOTE | 2024-04-07 12:50 | WOUNDNOTE ---
R CALF/ANKLE (LATERAL)
--- NOTE | 2024-04-07 12:52 | WOUNDNOTE ---
[facility] RN note: Patient admitted with LE wound infection. Patient admitted from SNF. He was recently at [facility]. As per physician note patient had vascular work up at [place], no significant PAD. Patient follows Dr. Ramirez,
Plastic surgeon at [facility].
See H&P for complete history.
PMH: HTN, IDDM, chronic LE lymphedema, ASCVD, anemia, CHF, PAD, CKD, BPH, cellulitis, dermatitis, FRANCESCO, cardiac stents, former smoker.
Wound Location and type/assessment: Patient admitted with: deep dermal linear stage 2 sacrum. Red sacral/buttocks. Full thickness LE, dorsal proximal foot wounds with necrotic tendon exposed L anterior calf/ankle. Bilateral unstageable heel
pressure injuries with brown eschar. Kavita/scrotal MASD.
Appetite: good.
Pressure redistribution devices in place: Waffle air overlay. Patient's legs contracted. Patient unable to turn self in bed. He frequently scratches his buttocks. Soft heel relief boots.
Plan: Discussed local wound care with patient's daughter. Obtain wound care order, knee high [place] wraps, heel relief boots, air overlay or air mattress from Dr. Hebert. Patient incontinent of urine. Kavita care given, patient turned and wound care
done with help from JOHN York. stated patient screams during wound care but he cannot get anything else for pain besides Tylenol.
Care plan to be updated and will follow as needed.
Note to case management of equipment requested for discharge: Air mattress at if not already in place.
Patient to follow up with his plastic surgeon.
--- NOTE | 2024-04-07 13:05 | W.PN.UPDATE ---
Update Note
Progress Note Update
as per wound care - b/l dry gangrene on heels - XR heels
US arterial of LE with suspicion for underlying PAD
[2024-04-07] MEDS: NOVOLOG FLEXPEN-LOW RESISTANCE 2 UNITS SC (13:19)
[2024-04-07 13:20] LABS: Glucose - Point of Care 232 mg/dl (70-99)
--- NOTE | 2024-04-07 13:48 | PHA.VAN.FU ---
Vancomycin Assessment / Plan
- Assessment
Renal Function: Stable
WBC's are: Stable
In the past 24 hrs, patient has been: Afebrile
Concomitant Antimicrobials: piperacillin/tazobactam
- Dosing Plan
Continue: Vanc 1000mg Q12H
- Monitoring Plan
No level(s) ordered at this time: will postpone levels given possible transition to PO antibiotics
- Follow Up
Pharmacy will continue to follow.
Vancomycin Follow UP
- -
Patient Age: 78
Patient Sex: Male
Vancomycin Day #: 3
Indication: Skin And Soft Tissue
Requesting Provider: Diane Hilton
Pertinent Antimicrobial Allergies:
no pertinent antibiotic allergies
Height / Weight:
Height 5 ft 9 in
Actual Weight 90.01 kg
IBW in k.7
Pertinent Past Medical History: DM 2
- Vital Signs / Lab Results
Temp Pulse Resp BP Pulse Ox
98.0 F 87 17 156/66 95
04/07/24 12:08 04/07/24 12:08 04/07/24 12:08 04/07/24 12:08 04/07/24 12:08
Lab Results - Hematology
04/04/24 04/05/24 04/06/24
16:51 06:51 07:24
WBC 16.3 H 15.8 H 12.2 H
04/07/24
10:25
WBC 12.6 H
Lab Results - Chemistry
04/04/24 04/05/24 04/06/24
16:51 06:51 07:24
BUN 20 18 17
Creatinine 0.6 L 0.8 0.8
Estimated Creat Clear 79 79
Albumin 3.5 3.0 L
04/07/24
10:25
BUN 13
Creatinine 0.8
Estimated Creat Clear 79
Albumin
04/04/24
16:51
Lactic Acid 1.1
Microbiology Results
04/04/24 19:45 Wound Culture - Preliminary
Foot - Right Staph aureus MRSA
Gram negative bacilli
Gram Stain - Preliminary
04/04/24 21:49 Blood Culture - Preliminary
Blood/Venous No Growth in 48 hours- Final report to follow
04/04/24 19:45 Blood Culture - Preliminary
Blood/Venous No Growth in 48 hours- Final report to follow
04/04/24 19:46 Urine Culture - Final
Urine NO GROWTH
04/05/24 04:34 MRSA Screen - Final
Nose Staph aureus MRSA
04/05/24 15:49 Influenza Types A & B (JEANNIE) - Final
Nasal Swab Negative for Influenza A & B, NAAT
Negative results must be combined with clinical observations
and patient history.
Nucleic Acid Amplification test (NAAT)performed on the
[employer] platform.
--- NOTE | 2024-04-07 15:20 | CM ---
CM reviewed chart, patient off floor. Patient LTC resident from [facility]. Clinicals sent in [facility]. CM will continue to follow for all discharge planning needs.
Plan; return to [facility] LT when stable.
[2024-04-07 15:55] VITALS: BP 125/67
[2024-04-07] MEDS: APRESOLINE 10 MG PO ×2 (16:25→23:04)
[2024-04-07] MEDS: LOVENOX 40 MG SC (17:15)
[2024-04-07 18:16] LABS: Glucose - Point of Care 222 mg/dl (70-99)
[2024-04-07 20:34] LABS: Vancomycin Peak 22.4 ug/ml (18-26)
[2024-04-07 21:51] LABS: Glucose - Point of Care 285 mg/dl (70-99)
[2024-04-07 22:40] VITALS: PULSE 95
[2024-04-07] MEDS: CARDURA 2 MG PO (23:05)
[2024-04-07] MEDS: MELATONIN 5 MG PO (23:05)
[2024-04-07] MEDS: COREG 25 MG PO (23:05)
[2024-04-07] MEDS: LANTUS 0.14 UNITS SC (23:08)
[2024-04-07 23:32] VITALS: BP 124/69
[2024-04-08 00:01] LABS: Haptoglobin 392 mg/dL (30-200)
[2024-04-08 05:37] LABS: Hematocrit 30.7 % (39.0-52.0); Hemoglobin 10.3 g/dL (13.0-18.0); Mean Corp Hgb Conc. 33.6 g/dL (33.0-37.0); Mean Corpuscular Hgb 29.7 pg (27.0-31.0); Mean Corpuscular Volume 88.5 fL (80.0-94.0); Mean Platelet Volume 8.8 fL (7.4-10.4); Platelet Count 515 10^3/uL (130-400); Red Blood Cell Count 3.47 10^6/uL (4.70-6.10); Red Cell Dist. Width 14.1 % (11.5-14.5); White Blood Cell Count 15.6 10^3/uL (4.8-10.8)
[2024-04-08] MEDS: ZOSYN 50 IV ×4 (05:45→22:41)
[2024-04-08 05:55] VITALS: BMI 29.1
[2024-04-08 06:01] LABS: Blood Urea Nitrogen 9 mg/dl (9-20); Carbon Dioxide 29 mmol/L (22-30); Chloride 96 mmol/L (98-107); Estimated Creatinine Clearance 90 ml/min; Glucose 223 mg/dl (70-99); Potassium 4.2 mmol/L (3.5-5.1); Sodium 132 mmol/L (135-145); eGFR > 60.00
[2024-04-08] MEDS: VANCOCIN 200 IV ×2 (06:34→17:42)
[2024-04-08 07:00] VITALS: BP 127/66
[2024-04-08 08:48] LABS: Glucose - Point of Care 276 mg/dl (70-99)
[2024-04-08] MEDS: LOTRIMIN 1% CREAM TOPICAL (08:50)
[2024-04-08] MEDS: DESENEX/MITRAZOL/ZEASORB 1 APPLIC TOPICAL ×2 (08:50→19:56)
[2024-04-08] MEDS: NOVOLOG FLEXPEN-LOW RESISTANCE 3 UNITS SC ×2 (08:50→12:24)
[2024-04-08] MEDS: APRESOLINE 10 MG PO ×3 (08:50→22:21)
[2024-04-08] MEDS: LASIX 40 MG PO (08:50)
[2024-04-08] MEDS: ASPIR LOW (ENTERIC COATED) 81 MG PO (08:50)
[2024-04-08] MEDS: DAKIN'S SOLUTION 0.125% 1/4 STRENGTH 473 ML TOPICAL (08:50)
[2024-04-08] MEDS: FLOMAX 0.4 MG PO (08:50)
[2024-04-08] MEDS: MAG-TAB SR 84 MG PO ×2 (08:50→19:56)
[2024-04-08] MEDS: COREG 25 MG PO ×2 (08:50→19:57)
[2024-04-08] MEDS: PROTONIX 40 MG PO (08:50)
[2024-04-08] MEDS: TORADOL 15 MG IV (09:30)
[2024-04-08 12:08] LABS: Glucose - Point of Care 279 mg/dl (70-99)
--- NOTE | 2024-04-08 13:54 | PHA.VAN.FU ---
Vancomycin Assessment / Plan
- Assessment
Renal Function: Stable
WBC's are: Trending Up
In the past 24 hrs, patient has been: Afebrile
Concomitant Antimicrobials: piperacillin/tazobactam
- Assessment - Therapeutic Drug Monitoring
Extrapolated Cmax (mcg/mL): 24.3
Peak level was drawn: Appropriately (drawn ~1.9H after end of previous infusion)
Extrapolated Cmin (mcg/mL): 15.2
Trough Drawn: Appropriately
Levels were drawn: At steady state (levels drawn after 5th maintenance dose)
Calculated AUC (mcg*h/mL): 466
Calculated ke: 0.0428
Calculated half life (H): 16.2
Calculated Vd (L): 100 (~1.1 L/kg)
Calculated Vanc CL (ml/min): 71
Note: trough today is available as a scanned in report from [facility] as internal vancomycin reagent
- Dosing Plan
Continue: Vanc 1000mg Q12H
will continue present dosing for now but patient may have additional accumulation with half-life > interval
Peak and trough were not analyzed from the same lab (peak analyzed here and trough at [facility]) and unsure if could effect results
- Monitoring Plan
No level(s) ordered at this time: consider repeat levels in next few days
- Follow Up
Pharmacy will continue to follow.
Vancomycin Follow UP
- -
Patient Age: 78
Patient Sex: Male
Vancomycin Day #: 4
Indication: Skin And Soft Tissue
Requesting Provider: Diane Hilton
Pertinent Antimicrobial Allergies:
no pertinent antibiotic allergies
Height / Weight:
Height 5 ft 9 in
Actual Weight 89.222 kg
IBW in k.7
Pertinent Past Medical History: DM 2
- Vital Signs / Lab Results
Temp Pulse Resp BP Pulse Ox
97.6 F 95 18 127/66 96
10/08/24 07:00 04/08/24 07:00 04/08/24 07:00 04/08/24 07:00 04/08/24 07:00
Lab Results - Hematology
04/06/24 04/07/24 04/08/24
10:25 05:22
WBC 12.2 H 12.6 H 15.6 H
Lab Results - Chemistry
04/06/24 04/07/24 04/08/24
10:25 05:22
BUN 17 13 9
Creatinine 0.8 0.8 0.7
Estimated Creat Clear 79 79 90
Albumin 3.0 L
Microbiology Results
04/04/24 19:45 Wound Culture - Final
Foot - Right Staph aureus MRSA
Klebsiella pneumoniae-ESBL
Gram Stain - Final
04/04/24 21:49 Blood Culture - Preliminary
Blood/Venous No Growth in 72 hours- Final report to follow
04/04/24 19:45 Blood Culture - Preliminary
Blood/Venous No Growth in 72 hours- Final report to follow
04/04/24 19:46 Urine Culture - Final
Urine NO GROWTH
Therapeutic Drug Monitoring
Vancomycin Peak Cancelled 04/07/24 20:30
Vancomycin Trough Cancelled 04/08/24 05:22
[2024-04-08 15:00] VITALS: BP 108/63
[2024-04-08 15:15] VITALS: BMI 29.1
--- NOTE | 2024-04-08 15:38 | W.PN.HOSP.TC ---
Today's Communication/Plan
-
Wound care per
Antibiotics per
Vascular surgery evaluation
Assessment / Plan
Assessment / Plan
Impression:
Bilateral lower extremity trophic wounds with dry gangrene and acute on chronic cellulitis
Suspect severe PAD.
Altered mental status secondary to toxic metabolic encephalopathy.
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
Mild hyponatremia sodium 133
Other conditions:
CAD with history of PCI unknown details.
CHF unknown EF
Anemia of chronic disease.
IDDM.
Essential hypertension.
BPH.
Obstructive sleep apnea not compliant with CPAP
Chronic ambulatory dysfunction likely multifactorial (PAD, diabetic neuropathy, cognitive status)
Plan:
Bilateral lower extremity wounds with dry gangrene at the heels.
Suspect severe PAD.
Arterial ultrasound
1. As above, examination was limited by the patient's inability to remain motionless secondary to pain. Ankle brachial indices were unobtainable.
2. Right toe brachial index of 0.16. Right common femoral waveform is multiphasic, but somewhat dampened suggesting probable component of inflow disease. There are monophasic dampened waveforms throughout the superficial femoral and popliteal
arteries. No high-grade focal stenosis is identified sonographically.
3. Left toe brachial index of 0.07. The left common femoral waveform is monophasic, consistent with inflow disease. There is moderate to severe stenosis of the mid left superficial femoral artery.
X-ray with osteoporosis.
Wound culture with MRSA and ESBL Klebsiella sensitive to Zosyn.
Afebrile and hemodynamically stable. Noted with rising WBC.
Sepsis ruled out
Vascular surgery consultation
Continue broad-spectrum antibiotics: Vancomycin/Zosyn
Continue wound care.
Altered mental status suspect toxic metabolic encephalopathy in the settings of acute infection.
Remains lethargic with no focal findings on exam.
Mental status reportedly improved with initiation of antibiotics.
Suspect underlying dementia vascular type.
Check CT scan of the head
Monitor closely.
CAD.
CHF unknown EF by history.
Essential hypertension
Current volume status compensated.
Check baseline ECG.
Echocardiogram
Lipid profile.
Continue current regimen including Coreg, Cardura, hydralazine
Continue aspirin
Continue furosemide with caution monitor renal function and volume status.
Mild hyponatremia volume loop diuretics.
Follow BMP.
IDDM with persistent hyperglycemia
Hemoglobin A1c 8.1
Continue Lantus 14 at bedtime. Add insulin aspart for AC.
Continue basal bolus protocol with serial Accu-Cheks
Carbohydrate controlled diet
BPH
Monitor for retention.
On Flomax
Obstructive sleep apnea
Reportedly not compliant with CPAP.
Admission ABG pH 7.4 on room air 99%
Continue CPAP at bedtime.
Full code.
DVT prophylaxis Lovenox
Anticipated Discharge: > 48 hours
Subjective/Interval History
-
Date of Service: April 08, 2024
Objective Data
-
Labs:
Laboratory Results
04/08/24
05:22
WBC 15.6 H
Hgb 10.3 L
Hct 30.7 L
Plt Count 515 H
Sodium 132 L
Potassium 4.2
Chloride 96 L
Carbon Dioxide 29
BUN 9
Creatinine 0.7
Glucose 223 H
Calcium 9.0
Vital Signs:
Vital Signs
Temp Pulse Resp BP Pulse Ox
97.6 F 95 18 127/66 97
04/08/24 07:00 04/08/24 07:00 04/08/24 07:00 04/08/24 07:00 04/08/24 08:50
I&O
04/07/24 04/08/24 04/09/24
06:59 06:59 06:59
Intake Total 600 / 600 1140 / 1140
Balance 600 / 600 1140 / 1140
Physical Exam
-
General: Well Developed and No Apparent Distress
HEENT: Normocephalic, Atraumatic and Moist Mucous Membranes
Respiratory: Clear to Auscultation
Cardiac: Regular Rhythm and S1/S2; Negative Murmur, Rub or Gallop
GI: Soft, Nontender, Nondistended and Normal Bowel Sounds; Negative Organomegaly
Rectal: Deferred by Provider
Musculoskeletal: No Clubbing, No Cyanosis, No Edema and Other (Bilateral lower extremity atrophic wounds with dry gangrene of the heel)
Skin: Negative Rash
Neuro: Awake, Alert, Oriented (Name only) and Nonfocal/Grossly Intact
[2024-04-08 17:37] LABS: Glucose - Point of Care 167 mg/dl (70-99)
[2024-04-08] MEDS: NOVOLOG FLEXPEN-LOW RESISTANCE 1 UNITS SC (17:40)
[2024-04-08] MEDS: NOVOLOG FLEXPEN 4 UNITS SC (17:40)
[2024-04-08] MEDS: LOVENOX 40 MG SC (17:42)
[2024-04-08] MEDS: LOTRIMIN 1% CREAM 1 APPLIC TOPICAL (19:56)
[2024-04-08] MEDS: CARDURA 2 MG PO (22:21)
[2024-04-08] MEDS: MELATONIN 5 MG PO (22:21)
[2024-04-08 22:40] LABS: Glucose - Point of Care 183 mg/dl (70-99)
[2024-04-08] MEDS: LANTUS 0.14 UNITS SC (23:04)
[2024-04-09 00:29] VITALS: BP 119/91
[2024-04-09] MEDS: ZOSYN 50 IV ×4 (04:57→22:00)
[2024-04-09] MEDS: VANCOCIN 200 IV ×2 (05:31→18:41)
[2024-04-09 05:49] VITALS: BMI 29.1
[2024-04-09 07:04] LABS: Glucose - Point of Care 170 mg/dl (70-99)
[2024-04-09 07:59] VITALS: BP 158/56
[2024-04-09 08:01] LABS: Hematocrit 31.1 % (39.0-52.0); Hemoglobin 10.5 g/dL (13.0-18.0); Mean Corp Hgb Conc. 33.8 g/dL (33.0-37.0); Mean Corpuscular Hgb 30.4 pg (27.0-31.0); Mean Corpuscular Volume 90.1 fL (80.0-94.0); Mean Platelet Volume 9.1 fL (7.4-10.4); Platelet Count 484 10^3/uL (130-400); Red Blood Cell Count 3.45 10^6/uL (4.70-6.10); Red Cell Dist. Width 14.1 % (11.5-14.5); White Blood Cell Count 14.6 10^3/uL (4.8-10.8)
--- NOTE | 2024-04-09 08:37 | PN.CDI ---
CDI
- -
CDI:
Physician Documentation Request
Admit Date: 04/04/24 20:35
Dear Doctor Lesley,
Please review the following and provide your response in the progress notes.
Clinical Indicators:
Pt admitted with Lower extremity wounds with dry gangrene and cellulitis.
04/07 WO RN Note: 'Patient admitted with: deep dermal linear stage 2 sacrum.'
Physician documentation of the type and location of wounds is required for compliant documentation. Based on the above clinical findings and your assessment, please provide the following in your progress note:
Stage 2 sacral pressure Injury POA
Non-pressure sacral wound POA
Other
Use of terms such as suspected, likely, concern for, or probable (associated with a specific diagnosis that is being evaluated, monitored, or treated as if it exists) are acceptable and can be coded in the inpatient setting, when documented at the
time of discharge.
Thank you,
Brandi Donovan RN, BSN
CDI Specialist
Available via [employer]
Please use your independent medical judgment in providing your response.
*Source: National Pressure Ulcer Advisory Panel (NPUAP)
[2024-04-09] MEDS: ASPIR LOW (ENTERIC COATED) 81 MG PO (09:37)
[2024-04-09] MEDS: APRESOLINE 10 MG PO ×3 (09:37→22:07)
[2024-04-09] MEDS: LASIX 40 MG PO (09:38)
[2024-04-09] MEDS: PROTONIX 40 MG PO (09:38)
[2024-04-09] MEDS: COREG 25 MG PO (09:38)
[2024-04-09] MEDS: FLOMAX 0.4 MG PO (09:38)
[2024-04-09] MEDS: MAG-TAB SR 84 MG PO ×2 (09:39→19:51)
[2024-04-09] MEDS: SOLU-CORTEF 200 MG IV (09:40)
[2024-04-09] MEDS: NOVOLOG FLEXPEN 4 UNITS SC ×3 (09:41→17:41)
[2024-04-09] MEDS: NOVOLOG FLEXPEN-LOW RESISTANCE 1 UNITS SC (09:42)
[2024-04-09] MEDS: BENADRYL 50 MG IV (09:43)
[2024-04-09] MEDS: DESENEX/MITRAZOL/ZEASORB 1 APPLIC TOPICAL ×2 (09:44→19:51)
[2024-04-09] MEDS: DAKIN'S SOLUTION 0.125% 1/4 STRENGTH 473 ML TOPICAL (09:44)
[2024-04-09] MEDS: LOTRIMIN 1% CREAM 1 APPLIC TOPICAL ×2 (09:45→19:52)
--- NOTE | 2024-04-09 10:02 | CON.VAS ---
Consultation
Consultation Request
Date/Time Consultation Performed: 04/09/2024 0930
Requesting Provider: Hospitalist
Performing Provider: Isabell Morales, AALIYAH-C for Emerson JaxNoah Millan III
Reason for Consultation: Bilateral lower extremity wounds
Medical History
-
Chief Complaint: Confusion, weakness, bilateral lower extremity wounds
History of Present Illness:
This is a 78-year-old male with significant past medical history for chronic lower extremity lymphedema, chronic wounds, diabetes, hypertension, anemia, chronic kidney disease, NC, CAD, CHF, and hyperlipidemia who presented to [facility] on
04/04/2024 with reports by assisted facility staff of increased confusion, malaise, and worsening chronic lower extremity wounds. Vascular surgery has been consulted for suspicion of peripheral arterial disease. HPI and physical exam
challenging to obtain as patient was not agreeable to answering most questions or physical exam. He is awake alert and oriented x 1 (to person), he is reporting continuous pain at bilateral lower extremity wounds and reports that they have been
going on for roughly 3 months. Although, per chart review H&P notes chronic lower extremity wounds have been ongoing for 'several years.' He appears to be in no apparent distress and can tell me his name and date of , refused to answer date,
year, or location. He refused to let me examine wounds or distal pulses. Per chart review he was recently hospitalized at [facility] for management of bilateral lower extremity wounds, and was eventually discharged to rehab. Currently patient
appears to be in no distress. Arterial ultrasound with ROBIN/TBI was done but noted majority of exam could not be obtained secondary to patient refusing to remain motionless.
Past Medical History
Past Medical History: CAD, CHF, HTN, IDDM and Other (CKD, BPH, cellulitis, GERD, hyperlipidemia, lymphedema, dermatitis, osteo, obstructive sleep apnea)
Past Surgical History: Cardiac (Cardiac catheterization with PCI)
Social History
Tobacco: Other (Unable to obtain)
Alcohol: Other (Unable to obtain)
Drug: Other (Unable to obtain)
Living: [facility]
Allergies / Home Medications
Allergy/AdvReac Type Severity Reaction Status Date / Time
acetic acid Allergy Unknown Verified 04/04/24 17:46
hydromorphone Allergy Unknown Verified 04/04/24 17:46
iodine Allergy Unknown Verified 04/04/24 17:46
morphine Allergy Unknown Verified 04/04/24 17:46
�Medication �Instructions �Recorded �Confirmed �Type
acetaminophen 325 mg tablet 650 mg PO Q6HPRN PRN mild pain 04/04/24 04/04/24 History
aspirin 81 mg tablet,delayed 81 mg PO DAILY Blood Clot 04/04/24 04/04/24 History
release Prevention/Tx
balsam zbigniew-castor oil topical 1 applic topical BID Skin Issues 04/04/24 04/04/24 History
ointment (Venelex topical ointment)
carvedilol 25 mg tablet 25 mg PO BID Blood Pressure 04/04/24 04/04/24 History
doxazosin 2 mg tablet 2 mg PO HS Blood Pressure 04/04/24 04/04/24 History
ergocalciferol (vitamin D2) 1,250 1,250 mcg PO MO Supplement 04/04/24 04/04/24 History
mcg (50,000 unit) capsule
furosemide 40 mg tablet 40 mg PO DAILY Fluid 04/04/24 04/04/24 History
Retention/Swelling
hydralazine 10 mg tablet 10 mg PO TID Blood Pressure 04/04/24 04/04/24 History
insulin aspart U-100 100 unit/mL 4 - 10 sliding scale dose SC ACHS 04/04/24 04/04/24 History
(3 mL) subcutaneous pen Diabetes
insulin degludec 100 unit/mL (3 28 unit SC HS Diabetes 04/04/24 04/04/24 History
mL) subcutaneous pen (Tresiba
FlexTouch U-100 insulin)
magnesium oxide 400 mg (241.3 mg 400 mg PO BID Supplement 04/04/24 04/04/24 History
magnesium) tablet (MagOx)
melatonin 5 mg tablet 5 mg PO HS Sleep 04/04/24 04/04/24 History
metformin 1,000 mg tablet 1,000 mg PO BIDWMEAL Diabetes 04/04/24 04/04/24 History
miconazole nitrate 2 % topical 1 applic topical BID Skin Issues 04/04/24 04/04/24 History
powder (Antifungal (miconazole))
miconazole nitrate 2 % topical 1 applic topical BID Skin Issues 04/04/24 04/04/24 History
powder (Antifungal (miconazole))
omeprazole 20 mg tablet,delayed 20 mg PO DAILY Gastrointestinal 04/04/24 04/04/24 History
release Issue
pioglitazone 15 mg tablet 15 mg PO DAILY Diabetes 04/04/24 04/04/24 History
tamsulosin 0.4 mg capsule 0.4 mg PO DAILY Urinary Issue 04/04/24 04/04/24 History
zinc oxide 12 % topical cream 1 applic topical TID Skin Issues 04/04/24 04/04/24 History
Review of Systems
-
Unable to obtain full review of systems at this time due to: Dementia
Physical Exam
Vital Signs
Temp Pulse Resp BP Pulse Ox
97.5 F 71 17 158/56 94
04/09/24 07:59 04/09/24 09:37 04/09/24 00:29 04/09/24 09:37 04/09/24 07:59
Lab Results
04/09/24 07:43
Physical Exam
General: No Apparent Distress
HEENT: Normocephalic, Anicteric and Atraumatic
Respiratory: Non Labored Respirations
Cardiac: Negative JVD
GI: Soft, Non Tender and Non Distended
Musculoskeletal: Edema (Bilateral lower extremity with trace edema)
Skin: Other (Please see wound care notes for pictures of bilateral lower extremity wounds, patient refused to let me assess)
Neuro: AO x 3
Pulses: Bilateral Femoral: +1
Assessment / Plan
-
Assessment: 78-year-old male admitted for malaise, bilateral lower extremity wounds, and acute confusion
Plan:
Given TBI on the right of 0.16 and 0.07 at the left from noninvasive ultrasound studies patient has peripheral arterial disease, however challenging at this time to fully assess degree given he was not motionless for arterial study and currently
refusing full physical exam. However, he was agreeable to obtaining a CT aorta with bilateral lower extremity runoff. There is documentation of an iodine allergy in chart but no documentation of reaction, patient states he cannot recall reaction.
Will premedicate per policy prior to CT scan.
Surgical plan following obtaining results of CTA aorta with runoff
Plan reviewed with attending Dr. Emerson Millan III
I performed this shared service with the attending. I evaluated the patient [id number] and have entered clinical documentation as shown in the encounter note. I performed the following component(s):�history and physical exam. Note that medical
decision making is not final until attested by vascular attending.
[2024-04-09 11:31] LABS: Blood Urea Nitrogen 10 mg/dl (9-20); Calcium 8.9 mg/dl (8.4-10.2); Carbon Dioxide 26 mmol/L (22-30); Chloride 95 mmol/L (98-107); Estimated Creatinine Clearance 90 ml/min; Glucose 244 mg/dl (70-99); HDL Cholesterol 34 mg/dl; LDL Cholesterol, Calculated 52 mg/dl; Potassium 4.2 mmol/L (3.5-5.1); Sodium 133 mmol/L (135-145); Total Cholesterol 112 mg/dl (50-199); Triglyceride 134 mg/dl (10-149); Very Low Density Lipoprotein 26 mg/dl (0-30); eGFR > 60.00
[2024-04-09 12:59] LABS: Glucose - Point of Care 292 mg/dl (70-99)
[2024-04-09] MEDS: NOVOLOG FLEXPEN-LOW RESISTANCE 3 UNITS SC (13:23)
[2024-04-09 15:16] VITALS: BP 140/67
--- NOTE | 2024-04-09 15:58 | CM ---
CM reviewed chart, patient LTC at [facility], will return when stable for discharge. CM will continue to follow for all discharge planning needs.
Plan; [facility] LTC when stable.
--- NOTE | 2024-04-09 15:59 | W.PN.HOSP.TC ---
Today's Communication/Plan
-
Vascular surgery evaluation
Antibiotics
Wound care
Assessment / Plan
Assessment / Plan
Impression:
Bilateral lower extremity trophic wounds with dry gangrene and acute on chronic cellulitis
Suspect severe PAD.
Altered mental status secondary to toxic metabolic encephalopathy.
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
Mild hyponatremia sodium 133
Other conditions:
CAD with history of PCI unknown details.
CHF unknown EF
Anemia of chronic disease.
IDDM.
Essential hypertension.
BPH.
Obstructive sleep apnea not compliant with CPAP
Chronic ambulatory dysfunction likely multifactorial (PAD, diabetic neuropathy, cognitive status)
Plan:
Bilateral lower extremity wounds with dry gangrene at the heels.
Suspect severe PAD.
Arterial ultrasound
1. As above, examination was limited by the patient's inability to remain motionless secondary to pain. Ankle brachial indices were unobtainable.
2. Right toe brachial index of 0.16. Right common femoral waveform is multiphasic, but somewhat dampened suggesting probable component of inflow disease. There are monophasic dampened waveforms throughout the superficial femoral and popliteal
arteries. No high-grade focal stenosis is identified sonographically.
3. Left toe brachial index of 0.07. The left common femoral waveform is monophasic, consistent with inflow disease. There is moderate to severe stenosis of the mid left superficial femoral artery.
X-ray with osteoporosis.
CTA Overall moderate diffuse atherosclerotic disease, as detailed above. The right superficial femoral artery contains moderate calcification with focal near complete occlusion distally. In the right lower leg, there is only two-vessel proximal
run off with nonvisualization of the majority of the anterior tibial artery and cut off of the peroneal artery just above the ankle.
Wound culture with MRSA and ESBL Klebsiella sensitive to Zosyn.
Afebrile and hemodynamically stable. Noted with rising WBC.
Sepsis ruled out
Vascular surgery consultation
Continue broad-spectrum antibiotics: Vancomycin/Zosyn
Continue wound care.
Altered mental status suspect toxic metabolic encephalopathy in the settings of acute infection.
Remains lethargic with no focal findings on exam.
Mental status reportedly improved with initiation of antibiotics.
Suspect underlying dementia vascular type.
Check CT scan of the head
Monitor closely.
CAD.
CHF preserved EF by history.
Essential hypertension
Current volume status compensated.
Check baseline ECG.
Echocardiogram preserved biventricular function with no significant valvular abnormalities
LDL 52
Continue current regimen including Coreg, Cardura, hydralazine
Continue aspirin
Continue furosemide with caution monitor renal function and volume status.
Mild hyponatremia volume loop diuretics.
Follow BMP.
IDDM with persistent hyperglycemia
Hemoglobin A1c 8.1
Continue Lantus 14 at bedtime. Add insulin aspart for AC.
Continue basal bolus protocol with serial Accu-Cheks
Carbohydrate controlled diet
BPH
Monitor for retention.
On Flomax
Obstructive sleep apnea
Reportedly not compliant with CPAP.
Admission ABG pH 7.4 on room air 99%
Continue CPAP at bedtime.
Full code.
DVT prophylaxis Lovenox
Anticipated Discharge: > 48 hours
Subjective/Interval History
-
Date of Service: April 09, 2024
Objective Data
-
Labs:
Laboratory Results
04/09/24 04/09/24
07:43 10:24
WBC 14.6 H
Hgb 10.5 L
Hct 31.1 L
Plt Count 484 H
Sodium Cancelled 133 L
Potassium Cancelled 4.2
Chloride Cancelled 95 L
Carbon Dioxide Cancelled 26
BUN Cancelled 10
Creatinine Cancelled 0.7
Glucose Cancelled 244 H
Calcium Cancelled 8.9
Vital Signs:
Vital Signs
Temp Pulse Resp BP Pulse Ox
97.5 F 74 18 140/67 96
04/09/24 15:16 04/09/24 15:16 04/09/24 15:16 04/09/24 15:16 04/09/24 15:16
I&O
04/08/24 04/09/24 04/10/24
06:59 06:59 06:59
Intake Total 1140 / 1140 480 / 480
Balance 1140 / 1140 480 / 480
Physical Exam
-
General: Well Developed and No Apparent Distress
HEENT: Normocephalic, Atraumatic and Moist Mucous Membranes
Respiratory: Clear to Auscultation
Cardiac: Regular Rhythm and S1/S2; Negative Murmur, Rub or Gallop
GI: Soft, Nontender, Nondistended and Normal Bowel Sounds; Negative Organomegaly
Rectal: Deferred by Provider
Musculoskeletal: No Clubbing, No Cyanosis, No Edema and Other (Bilateral lower extremity atrophic wounds with dry gangrene of the heel)
Skin: Negative Rash
Neuro: Awake, Alert, Oriented (Name only) and Nonfocal/Grossly Intact
--- NOTE | 2024-04-09 16:09 | PHA.VAN.FU ---
Vancomycin Assessment / Plan
- Assessment
Renal Function: Stable
WBC's are: Stable
In the past 24 hrs, patient has been: Afebrile
Concomitant Antimicrobials: piperacillin/tazobactam
- Dosing Plan
Continue: Vanc 1000mg Q12H
- Monitoring Plan
No level(s) ordered at this time: consider repeat levels tomorrow to assess for accumulation with half-life
- Follow Up
Pharmacy will continue to follow.
Vancomycin Follow UP
- -
Patient Age: 78
Patient Sex: Male
Vancomycin Day #: 5
Indication: Skin And Soft Tissue
Requesting Provider: Diane Hilton
Pertinent Antimicrobial Allergies:
no pertinent antibiotic allergies
Height / Weight:
Height 5 ft 9 in
Actual Weight 89.403 kg
IBW in k.7
Pertinent Past Medical History: DM 2
- Vital Signs / Lab Results
Temp Pulse Resp BP Pulse Ox
97.5 F 74 18 140/67 96
04/09/24 15:16 04/09/24 15:16 04/09/24 15:16 04/09/24 15:16 04/09/24 15:16
Lab Results - Hematology
04/07/24 04/08/24 04/09/24
10: 05:22 07:43
WBC 12.6 H 15.6 H 14.6 H
Lab Results - Chemistry
04/07/24 04/08/24 04/09/24
10:25 05:22 07:43
BUN 13 9 Cancelled
Creatinine 0.8 0.7 Cancelled
Estimated Creat Clear 79 90 Cancelled
04/09/24
10:24
BUN 10
Creatinine 0.7
Estimated Creat Clear 90
Microbiology Results
04/04/24 21:49 Blood Culture - Preliminary
Blood/Venous No Growth in 4 days- Final report to follow
04/04/24 19:45 Blood Culture - Preliminary
Blood/Venous No Growth in 4 days- Final report to follow
04/04/24 19:45 Wound Culture - Final
Foot - Right Staph aureus MRSA
Klebsiella pneumoniae-ESBL
Gram Stain - Final
Therapeutic Drug Monitoring
Vancomycin Peak Cancelled 04/07/24 20:30
Vancomycin Trough Cancelled 04/08/24 05:22
[2024-04-09 16:49] LABS: Glucose - Point of Care 330 mg/dl (70-99)
[2024-04-09] MEDS: NOVOLOG FLEXPEN-LOW RESISTANCE 4 UNITS SC (17:40)
[2024-04-09] MEDS: LOVENOX 40 MG SC (17:41)
[2024-04-09] MEDS: COREG PO (19:51)
[2024-04-09 21:33] LABS: Glucose - Point of Care 277 mg/dl (70-99)
[2024-04-09] MEDS: LANTUS 0.14 UNITS SC (21:59)
[2024-04-09] MEDS: CARDURA 2 MG PO (22:07)
[2024-04-09] MEDS: MELATONIN 5 MG PO (22:07)
[2024-04-09 22:35] VITALS: BP 130/81
[2024-04-10] MEDS: ZOSYN 50 IV ×4 (04:49→21:04)
[2024-04-10] MEDS: VANCOCIN 200 IV ×2 (05:31→18:34)
[2024-04-10 06:00] VITALS: BMI 28.5
[2024-04-10 07:32] LABS: Glucose - Point of Care 186 mg/dl (70-99)
[2024-04-10 07:45] VITALS: BP 145/48
[2024-04-10] MEDS: PROTONIX 40 MG PO (08:13)
[2024-04-10] MEDS: ASPIR LOW (ENTERIC COATED) 81 MG PO (08:13)
[2024-04-10] MEDS: MAG-TAB SR 84 MG PO ×2 (08:13→19:22)
[2024-04-10] MEDS: FLOMAX 0.4 MG PO (08:13)
[2024-04-10] MEDS: NOVOLOG FLEXPEN 4 UNITS SC ×3 (08:14→16:39)
[2024-04-10] MEDS: NOVOLOG FLEXPEN-LOW RESISTANCE 1 UNITS SC ×2 (08:16→12:55)
[2024-04-10] MEDS: DAKIN'S SOLUTION 0.125% 1/4 STRENGTH 1 ML TOPICAL (08:18)
[2024-04-10] MEDS: DESENEX/MITRAZOL/ZEASORB 1 APPLIC TOPICAL ×2 (08:20→19:23)
[2024-04-10] MEDS: LOTRIMIN 1% CREAM 1 APPLIC TOPICAL ×2 (08:20→19:25)
[2024-04-10] MEDS: LASIX 40 MG PO (08:26)
[2024-04-10] MEDS: COREG 25 MG PO ×2 (08:26→19:22)
[2024-04-10] MEDS: APRESOLINE 10 MG PO ×2 (08:26→21:21)
[2024-04-10 11:24] LABS: Glucose - Point of Care 177 mg/dl (70-99)
--- NOTE | 2024-04-10 12:37 | CM ---
CM reviewed chart, met with patient and daughter bedside. Patient remains on IV antibiotics. Daughter reports no concerns to CM at this time. CM will continue to follow for all discharge planning needs.
Plan; [facility] when medically stable.
[2024-04-10] MEDS: TYLENOL 650 MG PO (13:57)
[2024-04-10 15:53] VITALS: BP 107/38
[2024-04-10 16:19] LABS: Glucose - Point of Care 211 mg/dl (70-99)
[2024-04-10] MEDS: APRESOLINE PO (16:34)
[2024-04-10] MEDS: NOVOLOG FLEXPEN-LOW RESISTANCE 2 UNITS SC (16:40)
--- NOTE | 2024-04-10 16:40 | PHA.VAN.FU ---
Vancomycin Assessment / Plan
- Assessment
Renal Function: No New Labs Today
In the past 24 hrs, patient has been: Afebrile
Concomitant Antimicrobials: piperacillin/tazobactam
- Dosing Plan
Continue: Vanc 1000mg Q12H
- Monitoring Plan
Peak Level: 04/10 20:30
Trough Level: 04/11 05:30
Monitoring Comments: levels to be drawn after 11th maintenance dose to assess for accumulation
- Follow Up
Pharmacy will continue to follow.
Vancomycin Follow UP
- -
Patient Age: 78
Patient Sex: Male
Vancomycin Day #: 6
Indication: Skin And Soft Tissue
Requesting Provider: Diane Hilton
Pertinent Antimicrobial Allergies:
no pertinent antibiotic allergies
Height / Weight:
Height 5 ft 9 in
Actual Weight 87.628 kg
IBW in k.7
Pertinent Past Medical History: DM 2
- Vital Signs / Lab Results
Temp Pulse Resp BP Pulse Ox
98.2 F 72 18 107/38 97
04/10/24 15:53 04/10/24 15:53 04/10/24 15:53 04/10/24 15:53 04/10/24 15:53
Lab Results - Hematology
04/08/24 04/09/24
05:22 07:43
WBC 15.6 H 14.6 H
Lab Results - Chemistry
04/08/24 04/09/24 04/09/24
05:22 07:43 10:24
BUN 9 Cancelled 10
Creatinine 0.7 Cancelled 0.7
Estimated Creat Clear 90 Cancelled 90
Microbiology Results
04/04/24 21:49 Blood Culture - Final
Blood/Venous No Growth - Final Report
04/04/24 19:45 Blood Culture - Final
Blood/Venous No Growth - Final Report
Therapeutic Drug Monitoring
Vancomycin Peak Cancelled 04/07/24 20:30
Vancomycin Trough Cancelled 04/08/24 05:22
--- NOTE | 2024-04-10 17:22 | W.PN.HOSP.TC ---
Addendum entered and electronically signed by Prasanth Sutton MD 04/11/24 15:23:
Stage 2 sacral pressure Injury POA
Original Note:
Today's Communication/Plan
-
Difficult situation: Left lower extremity severe wound with tendon exposed with concern for osteomyelitis. Limb with less likely solvable at this point. Will check MRI with concern for osteomyelitis. Right lower extremity with proving vascular
insufficiency may require intervention. If a knee, decision should be made in terms of consolidating blood procedure with consideration of a left AKA and attempt of revascularization on the right.
Assessment / Plan
Assessment / Plan
Impression:
Bilateral lower extremity trophic wounds with dry gangrene and acute on chronic cellulitis
Suspect severe PAD.
Altered mental status secondary to toxic metabolic encephalopathy.
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
Mild hyponatremia sodium 133
Other conditions:
CAD with history of PCI unknown details.
CHF unknown EF
Anemia of chronic disease.
IDDM.
Essential hypertension.
BPH.
Obstructive sleep apnea not compliant with CPAP
Chronic ambulatory dysfunction likely multifactorial (PAD, diabetic neuropathy, cognitive status)
Plan:
Bilateral lower extremity wounds with dry gangrene at the heels.
Suspect severe PAD.
Arterial ultrasound
1. As above, examination was limited by the patient's inability to remain motionless secondary to pain. Ankle brachial indices were unobtainable.
2. Right toe brachial index of 0.16. Right common femoral waveform is multiphasic, but somewhat dampened suggesting probable component of inflow disease. There are monophasic dampened waveforms throughout the superficial femoral and popliteal
arteries. No high-grade focal stenosis is identified sonographically.
3. Left toe brachial index of 0.07. The left common femoral waveform is monophasic, consistent with inflow disease. There is moderate to severe stenosis of the mid left superficial femoral artery.
X-ray with osteoporosis.
CTA Overall moderate diffuse atherosclerotic disease, as detailed above. The right superficial femoral artery contains moderate calcification with focal near complete occlusion distally. In the right lower leg, there is only two-vessel proximal
run off with nonvisualization of the majority of the anterior tibial artery and cut off of the peroneal artery just above the ankle.
Wound culture with MRSA and ESBL Klebsiella sensitive to Zosyn.
Afebrile and hemodynamically stable. Noted with rising WBC.
Sepsis ruled out
Discussed with vascular surgery
Difficult situation: Left lower extremity severe wound with tendon exposed with concern for osteomyelitis. Limb with less likely solvable at this point. Will check MRI with concern for osteomyelitis. Right lower extremity with proving vascular
insufficiency may require intervention. If a knee, decision should be made in terms of consolidating blood procedure with consideration of a left AKA and attempt of revascularization on the right.
Continue broad-spectrum antibiotics: Vancomycin/Zosyn
Continue wound care.
Altered mental status suspect toxic metabolic encephalopathy in the settings of acute infection.
Remains lethargic with no focal findings on exam.
Mental status reportedly improved with initiation of antibiotics.
Suspect underlying dementia vascular type.
Check CT scan of the head
Monitor closely.
CAD.
CHF preserved EF by history.
Essential hypertension
Current volume status compensated.
Check baseline ECG.
Echocardiogram preserved biventricular function with no significant valvular abnormalities
LDL 52
Continue current regimen including Coreg, Cardura, hydralazine
Continue aspirin
Continue furosemide with caution monitor renal function and volume status.
Mild hyponatremia volume loop diuretics.
Follow BMP.
IDDM with persistent hyperglycemia
Hemoglobin A1c 8.1
Continue Lantus 14 at bedtime. Add insulin aspart for AC.
Continue basal bolus protocol with serial Accu-Cheks
Carbohydrate controlled diet
BPH
Monitor for retention.
On Flomax
Obstructive sleep apnea
Reportedly not compliant with CPAP.
Admission ABG pH 7.4 on room air 99%
Continue CPAP at bedtime.
Full code.
DVT prophylaxis Lovenox
Anticipated Discharge: 24 - 48 hours
Subjective/Interval History
-
Date of Service: April 10, 2024
Objective Data
-
Vital Signs:
Vital Signs
Temp Pulse Resp BP Pulse Ox
98.2 F 72 18 107/38 97
04/10/24 15:53 04/10/24 15:53 04/10/24 15:53 04/10/24 15:53 04/10/24 15:53
I&O
04/09/24 04/10/24 04/11/24
06:59 06:59 06:59
Intake Total 480 / 480 1080 / 1080
Balance 480 / 480 1080 / 1080
Physical Exam
-
General: Well Developed and No Apparent Distress
HEENT: Normocephalic, Atraumatic and Moist Mucous Membranes
Respiratory: Clear to Auscultation
Cardiac: Regular Rhythm and S1/S2; Negative Murmur, Rub or Gallop
GI: Soft, Nontender, Nondistended and Normal Bowel Sounds; Negative Organomegaly
Rectal: Deferred by Provider
Musculoskeletal: No Clubbing, No Cyanosis, No Edema and Other (Bilateral lower extremity atrophic wounds with dry gangrene of the heel)
Skin: Negative Rash
Neuro: Awake, Alert, Oriented (Name only) and Nonfocal/Grossly Intact
[2024-04-10] MEDS: LOVENOX 40 MG SC (18:34)
[2024-04-10] MEDS: CARDURA 2 MG PO (21:18)
[2024-04-10] MEDS: MELATONIN 5 MG PO (21:18)
[2024-04-10 21:29] LABS: Glucose - Point of Care 254 mg/dl (70-99)
[2024-04-10] MEDS: LANTUS 0.14 UNITS SC (21:42)
[2024-04-10 22:51] LABS: Vancomycin Peak 27.6 ug/ml (18-26)
--- NOTE | 2024-04-11 00:20 | PTCARENOTE ---
Pt returned from MRI. Per architectural technician, pt was uncooperative during MRI and images are of poor quality.
[2024-04-11 00:24] VITALS: BP 131/62
[2024-04-11] MEDS: ZOSYN 50 IV ×2 (04:53→10:59)
[2024-04-11 06:00] VITALS: BMI 30.9
[2024-04-11] MEDS: VANCOCIN 200 IV (06:21)
[2024-04-11 06:22] LABS: % Basophils 0.9 % (0-2); % Eosinophils 2.9 % (0-6); % Immature Granulocytes 0.6 % (0-0.5); % Lymphocytes 16.7 % (20.5-51.1); % Monocytes 8.3 % (1.7-9.3); % Neutrophils 70.6 % (42.2-75.2); Absolute Basophils 0.1 10^3/uL (0-0.2); Absolute Eosinophils 0.4 10^3/uL (0-0.7); Absolute Immature Granulocytes 0.1 10^3/uL (0-0.05); Absolute Lymphocytes 2.1 10^3/uL (1.2-3.4); Absolute Neutrophils 8.7 10^3/uL (1.4-6.5); Hematocrit 30.6 % (39.0-52.0); Hemoglobin 10.5 g/dL (13.0-18.0); Mean Corp Hgb Conc. 34.3 g/dL (33.0-37.0); Mean Corpuscular Hgb 29.9 pg (27.0-31.0); Mean Corpuscular Volume 87.2 fL (80.0-94.0); Nucleated Red Blood Cells % 0 % (-); Platelet Count 483 10^3/uL (130-400); Red Blood Cell Count 3.51 10^6/uL (4.70-6.10); Red Cell Dist. Width 14.1 % (11.5-14.5); White Blood Cell Count 12.4 10^3/uL (4.8-10.8)
[2024-04-11 06:59] LABS: Blood Urea Nitrogen 25 mg/dl (9-20); Calcium 9.1 mg/dl (8.4-10.2); Carbon Dioxide 27 mmol/L (22-30); Chloride 96 mmol/L (98-107); Estimated Creatinine Clearance 71 ml/min; Glucose 147 mg/dl (70-99); Potassium 4.1 mmol/L (3.5-5.1); Sodium 137 mmol/L (135-145); eGFR > 60.00
[2024-04-11 07:00] VITALS: BP 156/60
[2024-04-11 07:03] LABS: Vancomycin Trough 21.4 ug/ml (5-20)
--- NOTE | 2024-04-11 07:06 | PTCARENOTE ---
Pharmacy made aware of vanco trough level. Infusion stopped. Day RN to make MD aware.
--- NOTE | 2024-04-11 08:22 | PHA.VAN.FU ---
Vancomycin Assessment / Plan
- Assessment
Renal Function: SCR Increasing
WBC's are: Trending Down
In the past 24 hrs, patient has been: Afebrile
Concomitant Antimicrobials: piperacillin/tazobactam
- Assessment - Therapeutic Drug Monitoring
Extrapolated Cmax (mcg/mL): 30.5
Peak level was drawn: Appropriately (drawn ~2.9H after end of previous infusion)
Extrapolated Cmin (mcg/mL): 20.9
Trough Drawn: Appropriately
Levels were drawn: At steady state (levels drawn after 11th maintenance dose)
Calculated AUC (mcg*h/mL): 609
Calculated ke: 0.0345
Calculated half life (H): 20.1
Calculated Vd (L): 95 (~1 L/kg)
Calculated Vanc CL (ml/min): 55
Patient demonstrating accumulation from previous levels (AUC 466, t1/2 ~16.2H)
For prior levels - peak was performed at our lab and trough was analyzed at [facility] (see scanned report)
Patient does not appear to follow population PK
- Dosing Plan
Adjust Regimen to: dosing by level
Dosing Comments: patient received part of AM dose this morning - no further dosing today
- Monitoring Plan
Random Level: 04/12 0600
- Follow Up
Pharmacy will continue to follow.
Vancomycin Follow UP
- -
Patient Age: 78
Patient Sex: Male
Vancomycin Day #: 7
Indication: Skin And Soft Tissue
Requesting Provider: Diane Hilton
Pertinent Antimicrobial Allergies:
no pertinent antibiotic allergies
Height / Weight:
Height 5 ft 9 in
Actual Weight 94.801 kg
IBW in k.7
Pertinent Past Medical History: DM 2
- Vital Signs / Lab Results
Temp Pulse Resp BP Pulse Ox
98.1 F 70 18 131/62 96
04/11/24 00:24 04/11/24 00:24 04/11/24 00:24 04/11/24 00:24 04/11/24 00:24
Lab Results - Hematology
04/09/24 04/11/24
07:43 05:49
WBC 14.6 H 12.4 H
Lab Results - Chemistry
04/09/24 04/09/24 04/11/24
07:43 10 05:49
BUN Cancelled 10 25 H
Creatinine Cancelled 0.7 1.0
Estimated Creat Clear Cancelled 90 71
Microbiology Results
04/04/24 21:49 Blood Culture - Final
Blood/Venous No Growth - Final Report
04/04/24 19:45 Blood Culture - Final
Blood/Venous No Growth - Final Report
Therapeutic Drug Monitoring
Vancomycin Peak 27.6 ug/ml (18-26) H 04/10/24 22:26
Vancomycin Trough 21.4 ug/ml (5-20) H* 04/11/24 05:49
[2024-04-11 08:23] LABS: Glucose - Point of Care 154 mg/dl (70-99)
[2024-04-11] MEDS: NOVOLOG FLEXPEN-LOW RESISTANCE 1 UNITS SC (08:29)
[2024-04-11] MEDS: NOVOLOG FLEXPEN 4 UNITS SC ×3 (08:29→17:25)
[2024-04-11] MEDS: FLOMAX 0.4 MG PO (08:31)
[2024-04-11] MEDS: APRESOLINE 10 MG PO ×3 (08:31→22:05)
[2024-04-11] MEDS: ASPIR LOW (ENTERIC COATED) 81 MG PO (08:32)
[2024-04-11] MEDS: PROTONIX 40 MG PO (08:32)
[2024-04-11] MEDS: MAG-TAB SR 84 MG PO ×2 (08:33→20:14)
[2024-04-11] MEDS: LASIX 40 MG PO (08:33)
[2024-04-11] MEDS: COREG 25 MG PO ×2 (08:33→20:13)
[2024-04-11] MEDS: DESENEX/MITRAZOL/ZEASORB 1 APPLIC TOPICAL ×2 (08:35→20:13)
[2024-04-11] MEDS: DAKIN'S SOLUTION 0.125% 1/4 STRENGTH 50 ML TOPICAL (11:01)
[2024-04-11] MEDS: LOTRIMIN 1% CREAM 1 APPLIC TOPICAL ×2 (11:02→20:14)
[2024-04-11 12:18] LABS: Glucose - Point of Care 217 mg/dl (70-99)
[2024-04-11] MEDS: NOVOLOG FLEXPEN-LOW RESISTANCE 2 UNITS SC ×2 (12:47→17:25)
--- NOTE | 2024-04-11 14:12 | CON.ID ---
Consultation
-
Date/Time Consultation Requested: 04/11/2024 0946
Date/Time Consultation Performed: 04/11/2024 1410
Requesting Provider: Dr. Prasanth Trujillo
Performing Provider: Dr. Isabell Lombardi
Reason for Consultation: PAD, bilateral leg wounds
Chief Complaint / Past History
Chief Complaint
Weakness
History of Present Illness
78-year-old male with multiple medical problems including diabetes mellitus type 2, PAD, lower extremity lymphedema, chronic bilateral lower extremity wounds and follows at [facility] wound care center who came to the hospital on April 04 from
nursing rehab due to weakness and confusion. He was hospitalized at [facility] for worsening left greater than right extensive wounds. MRSA screen was positive at [facility]. He was seen by infectious disease who placed him on
linezolid and cefepime while in the hospital. He was then discharged to SNF rehab on ciprofloxacin. However patient noted to have weakness and decreased mental status. He was therefore sent to [facility] April for. White count was
16.3. Patient started on vancomycin and Zosyn. CT angiogram shows significant peripheral artery disease of both lower extremities. Patient denies fevers or chills. Leg wounds are uncomfortable.
Past History
Additional Past Medical History:
DM2
HTN
HLD
PAD
BLE lymphedema
Chronic BLE wounds follows at [facility]
CAD s/p stent
CHF
FRANCESCO
BPH
Allergy History:
acetic acid Allergy (Verified 04/04/24 17:46)
Unknown
hydromorphone Allergy (Verified 04/04/24 17:46)
Unknown
iodine Allergy (Verified 04/04/24 17:46)
Unknown
morphine Allergy (Verified 04/04/24 17:46)
Unknown
Medications Reviewed: Yes
Current Antibiotics:
Vancomycin
Zosyn
Social History
Tobacco: Former Smoker
Alcohol: Former
Drug: None
Living: [facility])
Review of Systems
Review of Systems
General: Change in Appetite; Negative Fever or Chills
HEENT: Negative Sinus Problems or Headache
Respiratory: Negative Dyspnea or Cough
Gasteroenterology: Negative Nausea, Vomiting or Diarrhea
Genital / Urological: Negative Dysuria or Flank Pain
Endocrine: Weakness
Neurological: Negative Dizziness
All systems: All other systems were reviewed and were negative
Vital Signs
Temp Pulse Resp BP Pulse Ox
98.2 F 71 20 156/60 96
04/11/24 07:00 04/11/24 07:00 04/11/24 07:00 04/11/24 07:00 04/11/24 07:00
Physical Exam
Physical Exam
Constitutional: No Acute Distress
Eyes: No Conjunctival Hemorrhage and Sclera Anicteric
Cardiovascular: Regular Rate and S1/S2
Pulmonary: Clear
Gastrointestinal: Soft, Non Tender, Non Distended and Normal Bowel Sounds
Wound: Other (Wound photos reviewed: Left leg anterior large deep open wound with tendon exposed, proximally large necrotic tissue, surrounded by several red ulcerations. RLE : + scattered ischemic wounds, ankle wounds with yellow exudate)
Lab / Diagnostic Study Results
04/11/24 05:49
04/11/24 05:49
Abs Immat Gran (auto) 0.1 10^3/uL (0-0.05) H 04/11/24 05:49
Absolute Neuts (auto) 8.7 10^3/uL (1.4-6.5) H 04/11/24 05:49
Absolute Lymphs (auto) 2.1 10^3/uL (1.2-3.4) 04/11/24 05:49
Absolute Monos (auto) 1.0 10^3/uL (0.1-0.6) H 04/11/24 05:49
Absolute Basos (auto) 0.1 10^3/uL (0-0.2) 04/11/24 05:49
Immature Gran % 0.6 % (0-0.5) H 04/11/24 05:49
Neutrophils % 70.6 % (42.2-75.2) 04/11/24 05:49
Lymphocytes % 16.7 % (20.5-51.1) L 04/11/24 05:49
Monocytes % 8.3 % (1.7-9.3) 04/11/24 05:49
Eosinophils % 2.9 % (0-6) 04/11/24 05:49
Basophils % 0.9 % (0-2) 04/11/24 05:49
Lactic Acid 1.1 mmol/L (0.7-2.0) 04/04/24 16:51
Procalcitonin 0.08 ng/ml (0.0-0.25) 04/05/24 11:53
Microbiology Results
Micro:
04/04/24 21:49 Blood Culture - Final
Blood/Venous No Growth - Final Report
04/04/24 19:45 Blood Culture - Final
Blood/Venous No Growth - Final Report
04/04/24 19:45 Wound Culture - Final
Foot - Right Staph aureus MRSA
Klebsiella pneumoniae-ESBL
Gram Stain - Final
04/04/24 19:46 Urine Culture - Final
Urine NO GROWTH
04/05/24 04:34 MRSA Screen - Final
Nose Staph aureus MRSA
04/05/24 15:49 Influenza Types A & B (JEANNIE) - Final
Nasal Swab Negative for Influenza A & B, NAAT
Negative results must be combined with clinical observations
and patient history.
Nucleic Acid Amplification test (NAAT)performed on the
RECESS. platform.
04/10/24 MRI LLE wo: No MRI evidence for acute osteomyelitis in the left hindfoot or midfoot. Multiple wounds in the distal left lower leg and ankle.
04/09/24 CTA: Overall moderate diffuse atherosclerotic disease, as detailed above. The right superficial femoral artery contains moderate calcification with focal near complete occlusion distally. In the right lower leg, there is only two-vessel
proximal run off with nonvisualization of the majority of the anterior tibial artery and cut off of the peroneal artery just above the ankle.
Assessment / Plan
# Acute on chronic extensive wounds LLE> RLE
# Severe PAD
# Leukocytosis
# DM
- LLE leg gangrene, wounds, extensive exposed tendon. Leg is not salvageable. Recommend amputation.
- RLE wound infection. MRSA and ESBL-Klebsiella isolated from wound.
- Per vascular, attempt to revascularize R
- Replace Zosyn with Ertapenem. Continue Vancomycin for now.
Doubt antibiotics are reaching target tissues duet o PAD.
--- NOTE | 2024-04-11 15:19 | W.PN.HOSP.TC ---
Today's Communication/Plan
-
Continue wound care
Continue antibiotics
Arteriogram with attempt of revascularization next week
Assessment / Plan
Assessment / Plan
Impression:
Bilateral lower extremity trophic wounds with dry gangrene and acute on chronic cellulitis
Suspect severe PAD.
Altered mental status secondary to toxic metabolic encephalopathy.
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
Mild hyponatremia sodium 133
Other conditions:
CAD with history of PCI unknown details.
CHF unknown EF
Anemia of chronic disease.
IDDM.
Essential hypertension.
BPH.
Obstructive sleep apnea not compliant with CPAP
Chronic ambulatory dysfunction likely multifactorial (PAD, diabetic neuropathy, cognitive status)
Plan:
Bilateral lower extremity wounds with dry gangrene at the heels.
Suspect severe PAD.
Arterial ultrasound
1. As above, examination was limited by the patient's inability to remain motionless secondary to pain. Ankle brachial indices were unobtainable.
2. Right toe brachial index of 0.16. Right common femoral waveform is multiphasic, but somewhat dampened suggesting probable component of inflow disease. There are monophasic dampened waveforms throughout the superficial femoral and popliteal
arteries. No high-grade focal stenosis is identified sonographically.
3. Left toe brachial index of 0.07. The left common femoral waveform is monophasic, consistent with inflow disease. There is moderate to severe stenosis of the mid left superficial femoral artery.
X-ray with osteoporosis.
CTA Overall moderate diffuse atherosclerotic disease, as detailed above. The right superficial femoral artery contains moderate calcification with focal near complete occlusion distally. In the right lower leg, there is only two-vessel proximal
run off with nonvisualization of the majority of the anterior tibial artery and cut off of the peroneal artery just above the ankle.
Wound culture with MRSA and ESBL Klebsiella sensitive to Zosyn.
Afebrile and hemodynamically stable. Noted with rising WBC.
Sepsis ruled out
Discussed with vascular surgery
Difficult situation: Left lower extremity severe wound with tendon exposed with concern for osteomyelitis. Limb with less likely solvable at this point. Right lower extremity with proving vascular insufficiency may require intervention. If any
decision should be made in terms of consolidating procedure with consideration of a left AKA and attempt of revascularization on the right.
Infectious disease input appreciated.
Wound culture with MRSA and Klebsiella ESBL
MRI of the left lower extremity negative for osteomyelitis
Antibiotics transition from vancomycin/Zosyn to vancomycin/meropenem
Continue wound care.
Altered mental status suspect toxic metabolic encephalopathy in the settings of acute infection.
Remains lethargic with no focal findings on exam.
Mental status reportedly improved with initiation of antibiotics.
Suspect underlying dementia vascular type.
Check CT scan of the head
Monitor closely.
CAD.
CHF preserved EF by history.
Essential hypertension
Current volume status compensated.
Check baseline ECG.
Echocardiogram preserved biventricular function with no significant valvular abnormalities
LDL 52
Continue current regimen including Coreg, Cardura, hydralazine
Continue aspirin
Continue furosemide with caution monitor renal function and volume status.
Mild hyponatremia volume loop diuretics.
Follow BMP.
IDDM with persistent hyperglycemia
Hemoglobin A1c 8.1
Continue Lantus 14 at bedtime. Add insulin aspart for AC.
Continue basal bolus protocol with serial Accu-Cheks
Carbohydrate controlled diet
BPH
Monitor for retention.
On Flomax
Obstructive sleep apnea
Reportedly not compliant with CPAP.
Admission ABG pH 7.4 on room air 99%
Continue CPAP at bedtime.
Full code.
DVT prophylaxis Lovenox
Anticipated Discharge: > 48 hours
Subjective/Interval History
-
Date of Service: April 11, 2024
Objective Data
-
Labs:
Laboratory Results
04/11/24
05:49
WBC 12.4 H
Hgb 10.5 L
Hct 30.6 L
Plt Count 483 H
Sodium 137
Potassium 4.1
Chloride 96 L
Carbon Dioxide 27
BUN 25 H
Creatinine 1.0
Glucose 147 H
Calcium 9.1
Vital Signs:
Vital Signs
Temp Pulse Resp BP Pulse Ox
98.2 F 71 20 156/60 96
04/11/24 07:00 04/11/24 07:00 04/11/24 07:00 04/11/24 07:00 04/11/24 07:00
I&O
04/10/24 04/11/24 04/12/24
06:59 06:59 06:59
Intake Total 1080 / 1080 1160 / 1160
Balance 1080 / 1080 1160 / 1160
Physical Exam
-
General: Well Developed and No Apparent Distress
HEENT: Normocephalic, Atraumatic and Moist Mucous Membranes
Respiratory: Clear to Auscultation
Cardiac: Regular Rhythm and S1/S2; Negative Murmur, Rub or Gallop
GI: Soft, Nontender, Nondistended and Normal Bowel Sounds; Negative Organomegaly
Rectal: Deferred by Provider
Musculoskeletal: No Clubbing, No Cyanosis, No Edema and Other (Bilateral lower extremity atrophic wounds with dry gangrene of the heel)
Skin: Negative Rash
Neuro: Awake, Alert, Oriented (Name only) and Nonfocal/Grossly Intact
[2024-04-11 16:26] VITALS: BP 133/81
[2024-04-11 17:06] LABS: Glucose - Point of Care 243 mg/dl (70-99)
[2024-04-11] MEDS: INVANZ 60 MG IV (17:12)
[2024-04-11] MEDS: LOVENOX 40 MG SC (18:30)
[2024-04-11 21:23] LABS: Glucose - Point of Care 194 mg/dl (70-99)
[2024-04-11] MEDS: MELATONIN 5 MG PO (22:05)
[2024-04-11] MEDS: CARDURA 2 MG PO (22:06)
[2024-04-11] MEDS: LANTUS 0.14 UNITS SC (22:07)
[2024-04-11 23:28] VITALS: BP 97/55
[2024-04-11] MEDS: TYLENOL 650 MG PO (23:46)
[2024-04-12 06:00] VITALS: BMI 31.1
[2024-04-12 07:00] VITALS: BP 102/34
[2024-04-12 07:48] LABS: Vancomycin Random 13.4 ug/ml
--- NOTE | 2024-04-12 08:40 | PHA.VAN.FU ---
Vancomycin Assessment / Plan
- Assessment
Renal Function: No New Labs Today
In the past 24 hrs, patient has been: Afebrile
Concomitant Antimicrobials: Ertapenem
- Assessment - Therapeutic Drug Monitoring
Random Level: R = 13.4 ~ 25hrs post Vanc 1000mg (50-75% of dose?)
- Dosing Plan
Continue: Dose by level
- Monitoring Plan
Random Level: 04/13 AM
- Follow Up
Pharmacy will continue to follow.
Vancomycin Follow UP
- -
Patient Age: 78
Patient Sex: Male
Vancomycin Day #: 8
Indication: Skin And Soft Tissue
Requesting Provider: Diane Hilton
Pertinent Antimicrobial Allergies:
no pertinent antibiotic allergies
Height / Weight:
Height 5 ft 9 in
Actual Weight 95.311 kg
IBW in k.7
Pertinent Past Medical History: DM 2
- Vital Signs / Lab Results
Temp Pulse Resp BP Pulse Ox
98.4 F 80 20 97/55 97
04/11/24 23:28 04/11/24 23:28 04/11/24 23:28 04/11/24 23:28 04/11/24 23:28
Lab Results - Hematology
04/11/24
05:49
WBC 12.4 H
Lab Results - Chemistry
04/09/24 04/09/24 04/11/24
07:43 10: 05:49
BUN Cancelled 10 25 H
Creatinine Cancelled 0.7 1.0
Estimated Creat Clear Cancelled 90 71
Therapeutic Drug Monitoring
Vancomycin Peak 27.6 ug/ml (18-26) H 04/10/24 22:26
Vancomycin Trough 21.4 ug/ml (5-20) H* 04/11/24 05:49
Random Vancomycin 13.4 ug/ml 04/12/24 07:10
--- NOTE | 2024-04-12 08:51 | W.PN.HOSP.TC ---
Today's Communication/Plan
-
Antibiotics. Bowel regimen.
Assessment / Plan
Assessment / Plan
Physical exam:
General: Acute on chronically ill
HEENT: Normocephalic, Atraumatic and Moist Mucous Membranes
Respiratory: Clear to Auscultation; Negative Wheezes, Rales or Rhonchi
Cardiac: Regular Rhythm and S1/S2
GI: Soft, Nontender and Nondistended
Musculoskeletal: Bilateral lower extremities wounds. No Clubbing, No Cyanosis and bilateral edema
Neuro: Awake, Alert and Oriented
Psych: Calm
Impression:
Bilateral lower extremity trophic wounds with dry gangrene and acute on chronic cellulitis
Suspect severe PAD.
Altered mental status secondary to toxic metabolic encephalopathy.
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
Mild hyponatremia sodium 133
Other conditions:
CAD with history of PCI unknown details.
CHF unknown EF
Anemia of chronic disease.
IDDM.
Essential hypertension.
BPH.
Obstructive sleep apnea not compliant with CPAP
Chronic ambulatory dysfunction likely multifactorial (PAD, diabetic neuropathy, cognitive status)
Plan:
Bilateral lower extremity wounds with dry gangrene at the heels.
Suspect severe PAD.
Arterial ultrasound
1. As above, examination was limited by the patient's inability to remain motionless secondary to pain. Ankle brachial indices were unobtainable.
2. Right toe brachial index of 0.16. Right common femoral waveform is multiphasic, but somewhat dampened suggesting probable component of inflow disease. There are monophasic dampened waveforms throughout the superficial femoral and popliteal
arteries. No high-grade focal stenosis is identified sonographically.
3. Left toe brachial index of 0.07. The left common femoral waveform is monophasic, consistent with inflow disease. There is moderate to severe stenosis of the mid left superficial femoral artery.
X-ray with osteoporosis.
CTA Overall moderate diffuse atherosclerotic disease, as detailed above. The right superficial femoral artery contains moderate calcification with focal near complete occlusion distally. In the right lower leg, there is only two-vessel proximal
run off with nonvisualization of the majority of the anterior tibial artery and cut off of the peroneal artery just above the ankle.
Wound culture with MRSA and ESBL Klebsiella sensitive to Zosyn.
Afebrile and hemodynamically stable. Noted with rising WBC.
Sepsis ruled out
Discussed with vascular surgery
Difficult situation: Left lower extremity severe wound with tendon exposed with concern for osteomyelitis. Limb with less likely solvable at this point. Right lower extremity with proving vascular insufficiency may require intervention. If any
decision should be made in terms of consolidating procedure with consideration of a left AKA and attempt of revascularization on the right.
Infectious disease input appreciated.
Wound culture with MRSA and Klebsiella ESBL
MRI of the left lower extremity negative for osteomyelitis
Antibiotics transition from vancomycin/Zosyn to vancomycin/meropenem
Continue wound care.
Altered mental status suspect toxic metabolic encephalopathy in the settings of acute infection.
Remains lethargic with no focal findings on exam.
Mental status reportedly improved with initiation of antibiotics.
Suspect underlying dementia vascular type.
Check CT scan of the head
Monitor closely.
CAD.
CHF preserved EF by history.
Essential hypertension
Current volume status compensated.
Check baseline ECG.
Echocardiogram preserved biventricular function with no significant valvular abnormalities
LDL 52
Continue current regimen including Coreg, Cardura, hydralazine
Continue aspirin
Continue furosemide with caution monitor renal function and volume status.
Mild hyponatremia volume loop diuretics.
Follow BMP.
IDDM with persistent hyperglycemia
Hemoglobin A1c 8.1
Continue Lantus 14 at bedtime. Add insulin aspart for AC.
Continue basal bolus protocol with serial Accu-Cheks
Carbohydrate controlled diet
BPH
Monitor for retention.
On Flomax
Obstructive sleep apnea
Reportedly not compliant with CPAP.
Admission ABG pH 7.4 on room air 99%
Continue CPAP at bedtime.
On 10/12:
Started bowel regimen
Continue IV antibiotic, IV ertapenem and IV vancomycin.
Discussed with daughter at bedside
Continue PT eval
Plan for vascular surgery eval next week
Full code.
DVT prophylaxis Lovenox
Anticipated Discharge: > 48 hours
Subjective/Interval History
-
Date of Service: April 12, 2024
No new complaints. Afebrile
Objective Data
-
Vital Signs:
Vital Signs
Temp Pulse Resp BP Pulse Ox
98.4 F 80 20 97/55 97
04/11/24 23:28 04/11/24 23:28 04/11/24 23:28 04/11/24 23:28 04/11/24 23:28
I&O
04/11/24 04/12/24 04/13/24
06:59 06:59 06:59
Intake Total 1160 / 1160 900 / 900
Balance 1160 / 1160 900 / 900
[2024-04-12 09:07] LABS: Glucose - Point of Care 169 mg/dl (70-99)
[2024-04-12] MEDS: MAG-TAB SR 84 MG PO ×2 (09:35→20:28)
[2024-04-12] MEDS: COREG 25 MG PO ×2 (09:36→20:28)
[2024-04-12] MEDS: PROTONIX 40 MG PO (09:36)
[2024-04-12] MEDS: FLOMAX 0.4 MG PO (09:36)
[2024-04-12] MEDS: ASPIR LOW (ENTERIC COATED) 81 MG PO (09:36)
[2024-04-12] MEDS: LASIX 40 MG PO (09:37)
[2024-04-12] MEDS: NOVOLOG FLEXPEN-LOW RESISTANCE 1 UNITS SC (09:38)
[2024-04-12] MEDS: APRESOLINE 10 MG PO ×3 (09:38→20:27)
[2024-04-12] MEDS: NOVOLOG FLEXPEN 4 UNITS SC ×3 (09:39→16:58)
[2024-04-12] MEDS: LOTRIMIN 1% CREAM 1 APPLIC TOPICAL ×2 (09:45→20:28)
[2024-04-12] MEDS: DESENEX/MITRAZOL/ZEASORB 1 APPLIC TOPICAL ×2 (09:46→20:28)
[2024-04-12 09:53] LABS: % Basophils 0.8 % (0-2); % Eosinophils 4.7 % (0-6); % Immature Granulocytes 0.8 % (0-0.5); % Lymphocytes 20.9 % (20.5-51.1); % Monocytes 8.9 % (1.7-9.3); % Neutrophils 63.9 % (42.2-75.2); Absolute Basophils 0.1 10^3/uL (0-0.2); Absolute Eosinophils 0.5 10^3/uL (0-0.7); Absolute Immature Granulocytes 0.1 10^3/uL (0-0.05); Absolute Lymphocytes 2.3 10^3/uL (1.2-3.4); Absolute Neutrophils 6.9 10^3/uL (1.4-6.5); Hematocrit 32.1 % (39.0-52.0); Hemoglobin 10.6 g/dL (13.0-18.0); Mean Corpuscular Hgb 29.9 pg (27.0-31.0); Mean Corpuscular Volume 90.7 fL (80.0-94.0); Mean Platelet Volume 9.2 fL (7.4-10.4); Nucleated Red Blood Cells % 0 % (-); Platelet Count 484 10^3/uL (130-400); Red Blood Cell Count 3.54 10^6/uL (4.70-6.10); White Blood Cell Count 10.8 10^3/uL (4.8-10.8)
[2024-04-12 10:05] LABS: Blood Urea Nitrogen 23 mg/dl (9-20); Calcium 9.3 mg/dl (8.4-10.2); Carbon Dioxide 27 mmol/L (22-30); Chloride 95 mmol/L (98-107); Estimated Creatinine Clearance 72 ml/min; Glucose 201 mg/dl (70-99); Potassium 3.9 mmol/L (3.5-5.1); Sodium 134 mmol/L (135-145); eGFR > 60.00
[2024-04-12] MEDS: VANCOCIN 200 IV (11:31)
[2024-04-12 12:39] LABS: Glucose - Point of Care 310 mg/dl (70-99)
[2024-04-12] MEDS: NOVOLOG FLEXPEN-LOW RESISTANCE 4 UNITS SC (13:10)
[2024-04-12] MEDS: SENOKOT-S 1 TABLET PO ×2 (13:11→20:29)
[2024-04-12] MEDS: MIRALAX 17 GRAMS PO (13:11)
[2024-04-12 15:00] VITALS: BP 132/53
--- NOTE | 2024-04-12 16:33 | W.PN.ID1 ---
Date of Service
Date of Service: April 12, 2024
Today's Communication
Continue Vancomycin and Ertapenem.
Assessment / Plan
# Acute on chronic extensive wounds LLE> RLE
# Severe PAD
# Leukocytosis - resolved
# DM
- LLE leg gangrene, wounds, extensive exposed tendon. Leg is not salvageable. Recommend amputation.
- RLE wound infection. MRSA and ESBL-Klebsiella isolated from wound.
- Per vascular, attempt to revascularize R
- s/p 6d Zosyn, then transitioned to Ertapenem (d2). Continue
- Continue Vancomycin (d8) for now.
Doubt antibiotics are reaching target tissues duet o PAD.
Chief Complaint
-: Other (Ischemic wounds)
Subjective / Review of Systems
Feels OK.
Vital Signs / Physical Exam
Vital Signs
Vital Signs
Temp Pulse Resp BP Pulse Ox
98.4 F 71 16 155/49 94
04/12/24 07:00 04/12/24 09:38 04/12/24 07:00 04/12/24 09:38 04/12/24 07:00
Physical Exam
Cardiovascular: Regular Rate and S1/S2
Pulmonary: Clear
Gastrointestinal: Soft, Non Tender and Non Distended
Wound: Other (Bilateral LE dressings dry)
Neurological: Awake and Alert
Objective Data
Lab Data
Lab Results
04/12/24 08:52
04/12/24 08:52
Estimated Creat Clear 72 ml/min 04/12/24 08:52
Lactic Acid 1.1 mmol/L (0.7-2.0) 04/04/24 16:51
Total Bilirubin 0.7 mg/dl (0.2-1.3) 04/06/24 07:24
AST 23 U/L (17-59) 04/06/24 07:24
ALT 16 U/L (0-50) 04/06/24 07:24
Alkaline Phosphatase 78 U/L (38-126) 04/06/24 07:24
Most recent labs reviewed.
Micro Results:
04/04/24 21:49 Blood Culture - Final
Blood/Venous No Growth - Final Report
04/04/24 19:45 Blood Culture - Final
Blood/Venous No Growth - Final Report
04/04/24 19:45 Wound Culture - Final
Foot - Right Staph aureus MRSA
Klebsiella pneumoniae-ESBL
Gram Stain - Final
04/04/24 19:46 Urine Culture - Final
Urine NO GROWTH
04/05/24 04:34 MRSA Screen - Final
Nose Staph aureus MRSA
04/05/24 15:49 Influenza Types A & B (JEANNIE) - Final
Nasal Swab Negative for Influenza A & B, NAAT
Negative results must be combined with clinical observations
and patient history.
Nucleic Acid Amplification test (NAAT)performed on the
[employer] platform.
04/10/24 MRI LLE wo: No MRI evidence for acute osteomyelitis in the left hindfoot or midfoot. Multiple wounds in the distal left lower leg and ankle.
04/09/24 CTA: Overall moderate diffuse atherosclerotic disease, as detailed above. The right superficial femoral artery contains moderate calcification with focal near complete occlusion distally. In the right lower leg, there is only two-vessel
proximal run off with nonvisualization of the majority of the anterior tibial artery and cut off of the peroneal artery just above the ankle.
[2024-04-12 16:54] LABS: Glucose - Point of Care 290 mg/dl (70-99)
[2024-04-12] MEDS: INVANZ 60 MG IV (16:57)
[2024-04-12] MEDS: NOVOLOG FLEXPEN-LOW RESISTANCE 3 UNITS SC (16:58)
[2024-04-12] MEDS: LOVENOX 40 MG SC (19:52)
[2024-04-12] MEDS: CARDURA 2 MG PO (20:27)
[2024-04-12] MEDS: MELATONIN 5 MG PO (20:28)
[2024-04-12 21:55] LABS: Glucose - Point of Care 260 mg/dl (70-99)
[2024-04-12] MEDS: LANTUS 0.14 UNITS SC (22:20)
[2024-04-12 23:35] VITALS: BP 140/68
[2024-04-13] MEDS: TYLENOL 650 MG PO (04:22)
[2024-04-13] MEDS: DAKIN'S SOLUTION 0.125% 1/4 STRENGTH TOPICAL (05:08)
[2024-04-13] MEDS: DAKIN'S SOLUTION 0.125% 1/4 STRENGTH 473 ML TOPICAL (05:09)
[2024-04-13 07:25] VITALS: BP 119/74
[2024-04-13 07:49] LABS: Glucose - Point of Care 243 mg/dl (70-99)
--- NOTE | 2024-04-13 08:06 | W.PN.HOSP.TC ---
Today's Communication/Plan
-
Continue current IV antibiotics. Vascular surgery reevaluation next week.
Assessment / Plan
Assessment / Plan
Physical exam:
General: Acute on chronically ill
HEENT: Normocephalic, Atraumatic and Moist Mucous Membranes
Respiratory: Clear to Auscultation; Negative Wheezes, Rales or Rhonchi
Cardiac: Regular Rhythm and S1/S2
GI: Soft, Nontender and Nondistended
Musculoskeletal: Bilateral lower extremities wounds. No Clubbing, No Cyanosis and bilateral edema
Neuro: Awake, Alert and Oriented
Psych: Calm
Impression:
Bilateral lower extremity trophic wounds with dry gangrene and acute on chronic cellulitis
Suspect severe PAD.
Altered mental status secondary to toxic metabolic encephalopathy.
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
Mild hyponatremia sodium 133
Other conditions:
CAD with history of PCI unknown details.
CHF unknown EF
Anemia of chronic disease.
IDDM.
Essential hypertension.
BPH.
Obstructive sleep apnea not compliant with CPAP
Chronic ambulatory dysfunction likely multifactorial (PAD, diabetic neuropathy, cognitive status)
Plan:
Bilateral lower extremity wounds with dry gangrene at the heels.
Suspect severe PAD.
Arterial ultrasound
1. As above, examination was limited by the patient's inability to remain motionless secondary to pain. Ankle brachial indices were unobtainable.
2. Right toe brachial index of 0.16. Right common femoral waveform is multiphasic, but somewhat dampened suggesting probable component of inflow disease. There are monophasic dampened waveforms throughout the superficial femoral and popliteal
arteries. No high-grade focal stenosis is identified sonographically.
3. Left toe brachial index of 0.07. The left common femoral waveform is monophasic, consistent with inflow disease. There is moderate to severe stenosis of the mid left superficial femoral artery.
X-ray with osteoporosis.
CTA Overall moderate diffuse atherosclerotic disease, as detailed above. The right superficial femoral artery contains moderate calcification with focal near complete occlusion distally. In the right lower leg, there is only two-vessel proximal
run off with nonvisualization of the majority of the anterior tibial artery and cut off of the peroneal artery just above the ankle.
Wound culture with MRSA and ESBL Klebsiella sensitive to Zosyn.
Afebrile and hemodynamically stable. Noted with rising WBC.
Sepsis ruled out
Discussed with vascular surgery
Difficult situation: Left lower extremity severe wound with tendon exposed with concern for osteomyelitis. Limb with less likely solvable at this point. Right lower extremity with proving vascular insufficiency may require intervention. If any
decision should be made in terms of consolidating procedure with consideration of a left AKA and attempt of revascularization on the right.
Infectious disease input appreciated.
Wound culture with MRSA and Klebsiella ESBL
MRI of the left lower extremity negative for osteomyelitis
Antibiotics transition from vancomycin/Zosyn to vancomycin/ertapenem
Continue wound care.
Altered mental status suspect toxic metabolic encephalopathy in the settings of acute infection.
Remains lethargic with no focal findings on exam.
Mental status reportedly improved with initiation of antibiotics.
Suspect underlying dementia vascular type.
Check CT scan of the head
Monitor closely.
CAD.
CHF preserved EF by history.
Essential hypertension
Current volume status compensated.
Check baseline ECG.
Echocardiogram preserved biventricular function with no significant valvular abnormalities
LDL 52
Continue current regimen including Coreg, Cardura, hydralazine
Continue aspirin
Continue furosemide with caution monitor renal function and volume status.
Mild hyponatremia volume loop diuretics.
Follow BMP.
IDDM with persistent hyperglycemia
Hemoglobin A1c 8.1
Continue Lantus 14 at bedtime. Add insulin aspart for AC.
Continue basal bolus protocol with serial Accu-Cheks
Carbohydrate controlled diet
BPH
Monitor for retention.
On Flomax
Obstructive sleep apnea
Reportedly not compliant with CPAP.
Admission ABG pH 7.4 on room air 99%
Continue CPAP at bedtime.
Full code.
DVT prophylaxis Lovenox
Anticipated Discharge: > 48 hours
Subjective/Interval History
-
Date of Service: April 13, 2024
No new events. Afebrile. He just got a new IV peripheral line. Discussed with daughter at bedside. Discussed with attending RN
Objective Data
-
Vital Signs:
Vital Signs
Temp Pulse Resp BP Pulse Ox
97.9 F 79 16 140/68 97
04/12/24 23:35 04/12/24 23:35 04/12/24 23:35 04/12/24 23:35 04/12/24 23:35
I&O
04/12/24 04/13/24 04/14/24
06:59 06:59 06:59
Intake Total 900 / 900 3840 / 3840
Balance 900 / 900 3840 / 3840
[2024-04-13] MEDS: NOVOLOG FLEXPEN 4 UNITS SC ×3 (08:08→16:32)
[2024-04-13] MEDS: FLOMAX 0.4 MG PO (08:09)
[2024-04-13] MEDS: NOVOLOG FLEXPEN-LOW RESISTANCE 2 UNITS SC ×2 (08:09→16:31)
[2024-04-13] MEDS: APRESOLINE 10 MG PO ×2 (08:10→20:50)
[2024-04-13] MEDS: SENOKOT-S 1 TABLET PO ×2 (08:10→20:50)
[2024-04-13] MEDS: MAG-TAB SR 84 MG PO ×2 (08:10→20:50)
[2024-04-13] MEDS: MIRALAX 17 GRAMS PO (08:10)
[2024-04-13] MEDS: PROTONIX 40 MG PO (08:11)
[2024-04-13] MEDS: COREG 25 MG PO ×2 (08:11→20:50)
[2024-04-13] MEDS: LASIX 40 MG PO (08:11)
[2024-04-13] MEDS: ASPIR LOW (ENTERIC COATED) 81 MG PO (08:11)
[2024-04-13] MEDS: DESENEX/MITRAZOL/ZEASORB 1 APPLIC TOPICAL ×2 (08:12→20:50)
[2024-04-13] MEDS: LOTRIMIN 1% CREAM 1 APPLIC TOPICAL ×2 (08:13→20:50)
[2024-04-13 08:30] LABS: Vancomycin Random 11.2 ug/ml
--- NOTE | 2024-04-13 09:51 | PHA.VAN.FU ---
Vancomycin Assessment / Plan
- Assessment
Renal Function: No New Labs Today
In the past 24 hrs, patient has been: Afebrile
Concomitant Antimicrobials: Ertapenem
- Assessment - Therapeutic Drug Monitoring
Random Level: R = 11.2 ~ 20hrs post Vanc 1gm
- Dosing Plan
Continue: Dose by level
Dosing by Level: Re-dose today (Vanc 1gm)
- Monitoring Plan
Random Level: 10 AM
- Follow Up
Pharmacy will continue to follow.
Vancomycin Follow UP
- -
Patient Age: 78
Patient Sex: Male
Vancomycin Day #: 9
Indication: Skin And Soft Tissue
Requesting Provider: Diane Hilton
Pertinent Antimicrobial Allergies:
no pertinent antibiotic allergies
Height / Weight:
Height 5 ft 9 in
Actual Weight 95.311 kg
IBW in k.7
Pertinent Past Medical History: DM 2
- Vital Signs / Lab Results
Temp Pulse Resp BP Pulse Ox
98.1 F 96 17 119/74 95
04/13/24 07:25 04/13/24 07:25 04/13/24 07:25 04/13/24 07:25 04/13/24 07:25
Lab Results - Hematology
04/11/24 04/12/24
05:49 08:52
WBC 12.4 H 10.8
Lab Results - Chemistry
04/11/24 04/12/24
05:49 08:52
BUN 25 H 23 H
Creatinine 1.0 1.0
Estimated Creat Clear 71 72
Therapeutic Drug Monitoring
Vancomycin Peak 27.6 ug/ml (18-26) H 04/10/24 22:26
Vancomycin Trough 21.4 ug/ml (5-20) H* 04/11/24 05:49
Random Vancomycin 11.2 ug/ml 04/13/24 07:17
[2024-04-13 11:02] LABS: % Basophils 0.8 % (0-2); % Eosinophils 4.7 % (0-6); % Immature Granulocytes 0.7 % (0-0.5); % Lymphocytes 18.5 % (20.5-51.1); % Monocytes 8.3 % (1.7-9.3); Absolute Basophils 0.1 10^3/uL (0-0.2); Absolute Eosinophils 0.6 10^3/uL (0-0.7); Absolute Immature Granulocytes 0.1 10^3/uL (0-0.05); Absolute Lymphocytes 2.3 10^3/uL (1.2-3.4); Absolute Neutrophils 8.2 10^3/uL (1.4-6.5); Hematocrit 29.4 % (39.0-52.0); Hemoglobin 9.6 g/dL (13.0-18.0); Mean Corp Hgb Conc. 32.7 g/dL (33.0-37.0); Mean Corpuscular Hgb 28.9 pg (27.0-31.0); Mean Corpuscular Volume 88.6 fL (80.0-94.0); Mean Platelet Volume 9.1 fL (7.4-10.4); Nucleated Red Blood Cells % 0 % (-); Platelet Count 498 10^3/uL (130-400); Red Blood Cell Count 3.32 10^6/uL (4.70-6.10); Red Cell Dist. Width 14.2 % (11.5-14.5); White Blood Cell Count 12.2 10^3/uL (4.8-10.8)
[2024-04-13] MEDS: VANCOCIN 200 IV (11:04)
[2024-04-13 11:07] LABS: Blood Urea Nitrogen 24 mg/dl (9-20); Calcium 9.4 mg/dl (8.4-10.2); Carbon Dioxide 28 mmol/L (22-30); Chloride 96 mmol/L (98-107); Estimated Creatinine Clearance 72 ml/min; Glucose 213 mg/dl (70-99); Potassium 4.2 mmol/L (3.5-5.1); Sodium 133 mmol/L (135-145); eGFR > 60.00
[2024-04-13 12:06] LABS: Glucose - Point of Care 331 mg/dl (70-99)
[2024-04-13] MEDS: NOVOLOG FLEXPEN-LOW RESISTANCE 4 UNITS SC (12:09)
[2024-04-13 15:20] VITALS: BP 104/57
[2024-04-13 16:25] LABS: Glucose - Point of Care 232 mg/dl (70-99)
[2024-04-13] MEDS: APRESOLINE PO (16:30)
[2024-04-13] MEDS: INVANZ 60 MG IV (16:31)
[2024-04-13] MEDS: LOVENOX 40 MG SC (18:08)
[2024-04-13 21:08] LABS: Glucose - Point of Care 231 mg/dl (70-99)
[2024-04-13] MEDS: LANTUS 0.14 UNITS SC (21:20)
[2024-04-13] MEDS: MELATONIN 5 MG PO (22:16)
[2024-04-13] MEDS: CARDURA 2 MG PO (22:16)
[2024-04-13 23:16] VITALS: BP 138/63
[2024-04-14 05:20] VITALS: BMI 31.2
[2024-04-14 07:36] LABS: Glucose - Point of Care 234 mg/dl (70-99)
[2024-04-14 07:55] VITALS: BP 150/46
[2024-04-14 08:03] LABS: Vancomycin Random 10.4 ug/ml
[2024-04-14] MEDS: APRESOLINE 10 MG PO ×3 (09:03→21:35)
[2024-04-14] MEDS: FLOMAX 0.4 MG PO (09:03)
[2024-04-14] MEDS: MIRALAX 17 GRAMS PO (09:03)
[2024-04-14] MEDS: PROTONIX 40 MG PO (09:04)
[2024-04-14] MEDS: COREG 25 MG PO ×2 (09:04→19:48)
[2024-04-14] MEDS: NOVOLOG FLEXPEN 4 UNITS SC ×2 (09:04→13:26)
[2024-04-14] MEDS: SENOKOT-S 1 TABLET PO ×2 (09:04→19:47)
[2024-04-14] MEDS: LASIX 40 MG PO (09:04)
[2024-04-14] MEDS: ASPIR LOW (ENTERIC COATED) 81 MG PO (09:04)
[2024-04-14] MEDS: MAG-TAB SR 84 MG PO ×2 (09:04→19:47)
[2024-04-14] MEDS: NOVOLOG FLEXPEN-LOW RESISTANCE 2 UNITS SC (09:05)
[2024-04-14] MEDS: DAKIN'S SOLUTION 0.125% 1/4 STRENGTH 1 ML TOPICAL (09:05)
[2024-04-14] MEDS: DESENEX/MITRAZOL/ZEASORB 1 APPLIC TOPICAL ×2 (09:05→19:47)
[2024-04-14] MEDS: LOTRIMIN 1% CREAM 1 APPLIC TOPICAL ×2 (09:05→19:48)
--- NOTE | 2024-04-14 09:09 | PHA.VAN.FU ---
Vancomycin Assessment / Plan
- Assessment
Renal Function: No New Labs Today
In the past 24 hrs, patient has been: Afebrile
Concomitant Antimicrobials: ertapenem
- Assessment - Therapeutic Drug Monitoring
Random Level: 10.4 - drawn ~20.5H after previous dose of 1000mg
- Dosing Plan
Dosing by Level: Re-dose today (Vanc 1250mg)
Dosing Comments: sight increase in dose given decreasing level trend
- Monitoring Plan
Random Level: 04/15 06
- Follow Up
Pharmacy will continue to follow.
Vancomycin Follow UP
- -
Patient Age: 78
Patient Sex: Male
Vancomycin Day #: 10
Indication: Skin And Soft Tissue
Requesting Provider: Diane Hilton / Dr. Lombardi
Pertinent Antimicrobial Allergies:
no pertinent antibiotic allergies
Height / Weight:
Height 5 ft 9 in
Actual Weight 95.753 kg
IBW in k.7
Pertinent Past Medical History: DM 2
- Vital Signs / Lab Results
Temp Pulse Resp BP Pulse Ox
98.8 F 81 18 150/46 97
04/14/24 07:55 04/14/24 07:55 04/14/24 07:55 04/14/24 09:04 04/14/24 07:55
Lab Results - Hematology
04/12/24 04/13/24
08:52 07:17
WBC 10.8 12.2 H
Lab Results - Chemistry
04/12/24 04/13/24
08:52 07:17
BUN 23 H 24 H
Creatinine 1.0 1.0
Estimated Creat Clear 72 72
Therapeutic Drug Monitoring
Vancomycin Peak 27.6 ug/ml (18-26) H 04/10/24 22:26
Vancomycin Trough 21.4 ug/ml (5-20) H* 04/11/24 05:49
Random Vancomycin 10.4 ug/ml 04/14/24 07:29
[2024-04-14] MEDS: VANCOCIN 275 MG IV (10:43)
[2024-04-14 12:10] LABS: Glucose - Point of Care 351 mg/dl (70-99)
[2024-04-14] MEDS: NOVOLOG FLEXPEN-LOW RESISTANCE 5 UNITS SC (13:26)
[2024-04-14 15:14] VITALS: BP 118/58
--- NOTE | 2024-04-14 15:42 | CM ---
CM reviewed chart, discussed with Hospitalist, patient for angiogram this week. CM will continue to follow for all discharge planning needs.
Plan; return to [facility] when stable.
--- NOTE | 2024-04-14 16:06 | W.PN.ID1 ---
Date of Service
Date of Service: April 14, 2024
Today's Communication
Continue Vancomycin and ertapenem.
Assessment / Plan
# Acute on chronic extensive ischemic wounds LLE> RLE
# Severe PAD
# Leukocytosis -
# DM
- LLE leg dry gangrene, wounds, extensive exposed tendon. Leg is not salvageable. Recommend amputation.
- RLE ankle wound infection. MRSA and ESBL-Klebsiella isolated from wound.
- Per vascular, attempt to revascularize R
- s/p 6d Zosyn, then transitioned to Ertapenem (d4). Continue.
- Continue Vancomycin (d10) for now.
# Additional Past Medical History:
DM2
HTN
HLD
PAD
BLE lymphedema
Chronic BLE wounds follows at [facility]
CAD s/p stent
CHF
FRANCESCO
BPH
Chief Complaint
-: Other (Ischemic wounds)
Subjective / Review of Systems
Feels OK today.
Vital Signs / Physical Exam
Vital Signs
Vital Signs
Temp Pulse Resp BP Pulse Ox
98.6 F 79 17 118/58 97
04/14/24 15:14 04/14/24 15:14 04/14/24 15:14 04/14/24 15:14 04/14/24 15:14
Physical Exam
Constitutional: No Acute Distress
Cardiovascular: Regular Rate and S1/S2
Gastrointestinal: Soft, Non Tender, Non Distended and Normal Bowel Sounds
Wound: Other (BLE dressings dry)
Neurological: Awake and Alert
Objective Data
Lab Data
Lab Results
04/13/24 07:17
04/13/24 07:17
Estimated Creat Clear 72 ml/min 04/13/24 07:17
Lactic Acid 1.1 mmol/L (0.7-2.0) 04/04/24 16:51
Total Bilirubin 0.7 mg/dl (0.2-1.3) 04/06/24 07:24
AST 23 U/L (17-59) 04/06/24 07:24
ALT 16 U/L (0-50) 04/06/24 07:24
Alkaline Phosphatase 78 U/L (38-126) 04/06/24 07:24
Most recent labs reviewed.
Micro Results:
04/04/24 21:49 Blood Culture - Final
Blood/Venous No Growth - Final Report
04/04/24 19:45 Blood Culture - Final
Blood/Venous No Growth - Final Report
04/04/24 19:45 Wound Culture - Final
Foot - Right Staph aureus MRSA
Klebsiella pneumoniae-ESBL
Gram Stain - Final
04/04/24 19:46 Urine Culture - Final
Urine NO GROWTH
04/05/24 04:34 MRSA Screen - Final
Nose Staph aureus MRSA
04/05/24 15:49 Influenza Types A & B (JEANNIE) - Final
Nasal Swab Negative for Influenza A & B, NAAT
Negative results must be combined with clinical observations
and patient history.
Nucleic Acid Amplification test (NAAT)performed on the
[employer] platform.
04/10/24 MRI LLE wo: No MRI evidence for acute osteomyelitis in the left hindfoot or midfoot. Multiple wounds in the distal left lower leg and ankle.
04/09/24 CTA: Overall moderate diffuse atherosclerotic disease, as detailed above. The right superficial femoral artery contains moderate calcification with focal near complete occlusion distally. In the right lower leg, there is only two-vessel
proximal run off with nonvisualization of the majority of the anterior tibial artery and cut off of the peroneal artery just above the ankle.
[2024-04-14 16:29] LABS: Glucose - Point of Care 300 mg/dl (70-99)
[2024-04-14] MEDS: INVANZ 60 MG IV (16:43)
[2024-04-14] MEDS: NOVOLOG FLEXPEN-MODERATE RESISTANCE 7 UNITS SC (16:50)
[2024-04-14] MEDS: NOVOLOG FLEXPEN 6 UNITS SC (16:50)
--- NOTE | 2024-04-14 17:14 | W.PN.HOSP.TC ---
Today's Communication/Plan
-
Continue antibiotics.
Vascular intervention planned for later this week
With hyperglycemia, adjust insulin regimen
Assessment / Plan
Assessment / Plan
Impression:
Bilateral lower extremity trophic wounds with dry gangrene and acute on chronic cellulitis
Suspect severe PAD.
Altered mental status secondary to toxic metabolic encephalopathy.
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
Mild hyponatremia sodium 133
Other conditions:
CAD with history of PCI unknown details.
CHF unknown EF
Anemia of chronic disease.
IDDM.
Essential hypertension.
BPH.
Obstructive sleep apnea not compliant with CPAP
Chronic ambulatory dysfunction likely multifactorial (PAD, diabetic neuropathy, cognitive status)
Plan:
Bilateral lower extremity wounds with dry gangrene at the heels.
Suspect severe PAD.
Arterial ultrasound
1. As above, examination was limited by the patient's inability to remain motionless secondary to pain. Ankle brachial indices were unobtainable.
2. Right toe brachial index of 0.16. Right common femoral waveform is multiphasic, but somewhat dampened suggesting probable component of inflow disease. There are monophasic dampened waveforms throughout the superficial femoral and popliteal
arteries. No high-grade focal stenosis is identified sonographically.
3. Left toe brachial index of 0.07. The left common femoral waveform is monophasic, consistent with inflow disease. There is moderate to severe stenosis of the mid left superficial femoral artery.
X-ray with osteoporosis.
CTA Overall moderate diffuse atherosclerotic disease, as detailed above. The right superficial femoral artery contains moderate calcification with focal near complete occlusion distally. In the right lower leg, there is only two-vessel proximal
run off with nonvisualization of the majority of the anterior tibial artery and cut off of the peroneal artery just above the ankle.
Wound culture with MRSA and ESBL Klebsiella sensitive to Zosyn.
Afebrile and hemodynamically stable. Noted with rising WBC.
Sepsis ruled out
Discussed with vascular surgery
Difficult situation: Left lower extremity severe wound with tendon exposed with concern for osteomyelitis. Limb with less likely solvable at this point. Right lower extremity with proving vascular insufficiency may require intervention. If any
decision should be made in terms of consolidating procedure with consideration of a left AKA and attempt of revascularization on the right.
Infectious disease input appreciated.
Wound culture with MRSA and Klebsiella ESBL
MRI of the left lower extremity negative for osteomyelitis
Antibiotics transition from vancomycin/Zosyn to vancomycin/ertapenem
Continue wound care.
Altered mental status suspect toxic metabolic encephalopathy in the settings of acute infection.
Remains lethargic with no focal findings on exam.
Mental status reportedly improved with initiation of antibiotics.
Suspect underlying dementia vascular type.
CT head without acute abnormalities
Monitor closely.
CAD.
CHF preserved EF by history.
Essential hypertension
Current volume status compensated.
Check baseline ECG.
Echocardiogram preserved biventricular function with no significant valvular abnormalities
LDL 52
Continue current regimen including Coreg, Cardura, hydralazine
Continue aspirin
Continue furosemide with caution monitor renal function and volume status.
Mild hyponatremia volume loop diuretics.
Follow BMP.
IDDM with persistent hyperglycemia
Hemoglobin A1c 8.1
Continue Lantus 14 at bedtime. Add insulin aspart for AC.
Continue basal bolus protocol with serial Accu-Cheks
Carbohydrate controlled diet
BPH
Monitor for retention.
On Flomax
Obstructive sleep apnea
Reportedly not compliant with CPAP.
Admission ABG pH 7.4 on room air 99%
Continue CPAP at bedtime.
Full code.
DVT prophylaxis Lovenox
Anticipated Discharge: > 48 hours
Subjective/Interval History
-
Date of Service: April 14, 2024
Objective Data
-
Vital Signs:
Vital Signs
Temp Pulse Resp BP Pulse Ox
98.6 F 79 17 118/58 97
04/14/24 15:14 04/14/24 15:14 04/14/24 15:14 04/14/24 15:14 04/14/24 15:14
I&O
04/13/24 04/14/24 04/15/24
06:59 06:59 06:59
Intake Total 3840 / 3840 240 / 240
Balance 3840 / 3840 240 / 240
Physical Exam
-
General: Well Developed and No Apparent Distress
HEENT: Normocephalic, Atraumatic and Moist Mucous Membranes
Respiratory: Clear to Auscultation
Cardiac: Regular Rhythm and S1/S2; Negative Murmur, Rub or Gallop
GI: Soft, Nontender, Nondistended and Normal Bowel Sounds; Negative Organomegaly
Rectal: Deferred by Provider
Musculoskeletal: No Clubbing, No Cyanosis, No Edema and Other (Bilateral lower extremity atrophic wounds with dry gangrene of the heel)
Skin: Negative Rash
Neuro: Awake, Alert, Oriented (Name only) and Nonfocal/Grossly Intact
[2024-04-14] MEDS: LOVENOX 40 MG SC (17:22)
[2024-04-14] MEDS: CARDURA 2 MG PO (19:55)
[2024-04-14] MEDS: MELATONIN 5 MG PO (21:35)
[2024-04-14] MEDS: LANTUS 0.18 UNITS SC (21:40)
[2024-04-14 21:43] LABS: Glucose - Point of Care 284 mg/dl (70-99)
[2024-04-14 23:45] VITALS: BP 146/77
[2024-04-15] VITALS (11 sets, daily range): BP systolic 112–159; BP diastolic 51–100; BMI 31.0
[2024-04-15] MEDS: MEDROL 32 MG PO ×2 (02:20→13:13)
[2024-04-15 05:54] LABS: Glucose - Point of Care 257 mg/dl (70-99)
[2024-04-15] MEDS: NOVOLOG FLEXPEN SC ×3 (05:57→15:39)
[2024-04-15] MEDS: NOVOLOG FLEXPEN-MODERATE RESISTANCE 5 UNITS SC ×2 (06:00→15:51)
[2024-04-15 07:31] LABS: Glucose - Point of Care 302 mg/dl (70-99)
[2024-04-15 08:35] LABS: % Basophils 0.4 % (0-2); % Eosinophils 0.5 % (0-6); % Immature Granulocytes 0.7 % (0-0.5); % Lymphocytes 6.2 % (20.5-51.1); % Monocytes 1.1 % (1.7-9.3); % Neutrophils 91.1 % (42.2-75.2); Absolute Basophils 0.1 10^3/uL (0-0.2); Absolute Eosinophils 0.1 10^3/uL (0-0.7); Absolute Immature Granulocytes 0.1 10^3/uL (0-0.05); Absolute Lymphocytes 0.9 10^3/uL (1.2-3.4); Absolute Monocytes 0.2 10^3/uL (0.1-0.6); Absolute Neutrophils 13.1 10^3/uL (1.4-6.5); Hematocrit 30.3 % (39.0-52.0); Hemoglobin 10.1 g/dL (13.0-18.0); Mean Corp Hgb Conc. 33.3 g/dL (33.0-37.0); Mean Corpuscular Hgb 28.9 pg (27.0-31.0); Mean Corpuscular Volume 86.6 fL (80.0-94.0); Mean Platelet Volume 9.2 fL (7.4-10.4); Nucleated Red Blood Cells % 0 % (-); Platelet Count 456 10^3/uL (130-400); Red Cell Dist. Width 14.2 % (11.5-14.5); White Blood Cell Count 14.4 10^3/uL (4.8-10.8)
[2024-04-15 08:41] LABS: Vancomycin Random 10.2 ug/ml
[2024-04-15] MEDS: LOTRIMIN 1% CREAM 1 APPLIC TOPICAL ×2 (08:54→22:06)
[2024-04-15] MEDS: DAKIN'S SOLUTION 0.125% 1/4 STRENGTH 1 ML TOPICAL (08:54)
[2024-04-15] MEDS: DESENEX/MITRAZOL/ZEASORB 1 APPLIC TOPICAL ×2 (08:54→22:06)
[2024-04-15] MEDS: MIRALAX PO (08:55)
[2024-04-15] MEDS: FLOMAX 0.4 MG PO (08:56)
[2024-04-15] MEDS: COREG 25 MG PO (08:56)
[2024-04-15] MEDS: LASIX 40 MG PO (08:56)
[2024-04-15] MEDS: PROTONIX 40 MG PO (08:56)
[2024-04-15] MEDS: MAG-TAB SR 84 MG PO (08:56)
[2024-04-15] MEDS: APRESOLINE 10 MG PO (08:56)
[2024-04-15] MEDS: ASPIR LOW (ENTERIC COATED) 81 MG PO (08:56)
[2024-04-15] MEDS: SENOKOT-S 1 TABLET PO (08:56)
[2024-04-15 09:07] LABS: Blood Urea Nitrogen 22 mg/dl (9-20); Calcium 9.5 mg/dl (8.4-10.2); Carbon Dioxide 27 mmol/L (22-30); Chloride 95 mmol/L (98-107); Estimated Creatinine Clearance 79 ml/min; Glucose 280 mg/dl (70-99); Potassium 4.2 mmol/L (3.5-5.1); Sodium 133 mmol/L (135-145); eGFR > 60.00
--- NOTE | 2024-04-15 10:07 | PHA.VAN.FU ---
Vancomycin Assessment / Plan
- Assessment
Renal Function: Stable
WBC's are: Trending Up
In the past 24 hrs, patient has been: Afebrile
Concomitant Antimicrobials: ertapenem
- Assessment - Therapeutic Drug Monitoring
Random Level: 10.2 - drawn ~20H after previous dose 1250mg
- Dosing Plan
Dosing by Level: Re-dose today (Vanc 1500mg)
Dosing Comments: level remains borderline low and may not maintain for full 24H
- Monitoring Plan
Random Level: 04/16 0600
- Follow Up
Pharmacy will continue to follow.
Vancomycin Follow UP
- -
Patient Age: 78
Patient Sex: Male
Vancomycin Day #: 11
Indication: Skin And Soft Tissue
Requesting Provider: Diane Hilton / Dr. Lombardi
Pertinent Antimicrobial Allergies:
no pertinent antibiotic allergies
Height / Weight:
Height 5 ft 9 in
Actual Weight 95.028 kg
IBW in k.7
Pertinent Past Medical History: DM 2
- Vital Signs / Lab Results
Temp Pulse Resp BP Pulse Ox
98.3 F 74 17 159/68 93
04/15/24 07:35 04/15/24 07:35 04/15/24 07:35 04/15/24 07:35 04/15/24 07:35
Lab Results - Hematology
04/13/24 04/15/24
07:17 07:00
WBC 12.2 H 14.4 H
Lab Results - Chemistry
04/13/24 04/15/24
07:17 07:00
BUN 24 H 22 H
Creatinine 1.0 0.9
Estimated Creat Clear 72 79
Therapeutic Drug Monitoring
Vancomycin Peak 27.6 ug/ml (18-26) H 04/10/24 22:26
Vancomycin Trough 21.4 ug/ml (5-20) H* 04/11/24 05:49
Random Vancomycin 10.2 ug/ml 04/15/24 07:00
[2024-04-15] MEDS: PERIDEX 0.12% ORAL RINSE 15 ML PO (11:42)
[2024-04-15] MEDS: VANCOCIN 300 ML IV (11:43)
[2024-04-15] MEDS: BACTROBAN 2% OINTMENT 1 APPLIC NASAL (11:43)
[2024-04-15] MEDS: VANCOCIN 300 MG IV (11:43)
[2024-04-15 11:49] LABS: Glucose - Point of Care 336 mg/dl (70-99)
[2024-04-15] MEDS: NOVOLOG FLEXPEN-MODERATE RESISTANCE 7 UNITS SC (11:49)
[2024-04-15] MEDS: BENADRYL 50 MG PO (13:13)
--- NOTE | 2024-04-15 15:18 | W.SUR.PREOP ---
Pre-Operative Surgical Note
-
I have examined this patient prior to the performance of the scheduled procedure.
The patient's condition is unchanged from the time of the current History and
Physical and the patient is able to undergo the scheduled procedure.
[2024-04-15 15:27] LABS: Glucose - Point of Care 298 mg/dl (70-99)
--- NOTE | 2024-04-15 16:04 | W.PN.HOSP.TC ---
Today's Communication/Plan
-
For arteriogram and attempt of revascularization today.
IV antibiotics
When diet resumed, will continue to adjust insulin regiment
Discussed with patient's daughter at the bedside.
Assessment / Plan
Assessment / Plan
Impression:
Bilateral lower extremity trophic wounds with dry gangrene and acute on chronic cellulitis
Suspect severe PAD.
Altered mental status secondary to toxic metabolic encephalopathy.
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
Mild hyponatremia sodium 133
Other conditions:
CAD with history of PCI unknown details.
CHF unknown EF
Anemia of chronic disease.
IDDM.
Essential hypertension.
BPH.
Obstructive sleep apnea not compliant with CPAP
Chronic ambulatory dysfunction likely multifactorial (PAD, diabetic neuropathy, cognitive status)
Plan:
Bilateral lower extremity wounds with dry gangrene at the heels.
Suspect severe PAD.
Arterial ultrasound
1. As above, examination was limited by the patient's inability to remain motionless secondary to pain. Ankle brachial indices were unobtainable.
2. Right toe brachial index of 0.16. Right common femoral waveform is multiphasic, but somewhat dampened suggesting probable component of inflow disease. There are monophasic dampened waveforms throughout the superficial femoral and popliteal
arteries. No high-grade focal stenosis is identified sonographically.
3. Left toe brachial index of 0.07. The left common femoral waveform is monophasic, consistent with inflow disease. There is moderate to severe stenosis of the mid left superficial femoral artery.
X-ray with osteoporosis.
CTA Overall moderate diffuse atherosclerotic disease, as detailed above. The right superficial femoral artery contains moderate calcification with focal near complete occlusion distally. In the right lower leg, there is only two-vessel proximal
run off with nonvisualization of the majority of the anterior tibial artery and cut off of the peroneal artery just above the ankle.
Wound culture with MRSA and ESBL Klebsiella sensitive to Zosyn.
Afebrile and hemodynamically stable. Noted with rising WBC.
Sepsis ruled out
Discussed with vascular surgery
Difficult situation: Left lower extremity severe wound with tendon exposed with concern for osteomyelitis. Limb with less likely solvable at this point. Right lower extremity with proving vascular insufficiency may require intervention. If any
decision should be made in terms of consolidating procedure with consideration of a left AKA and attempt of revascularization on the right.
Infectious disease input appreciated.
Wound culture with MRSA and Klebsiella ESBL
MRI of the left lower extremity negative for osteomyelitis
Antibiotics transition from vancomycin/Zosyn to vancomycin/ertapenem
Continue wound care.
Altered mental status suspect toxic metabolic encephalopathy in the settings of acute infection.
Remains lethargic with no focal findings on exam.
Mental status reportedly improved with initiation of antibiotics.
Suspect underlying dementia vascular type.
CT head without acute abnormalities
Monitor closely.
CAD.
CHF preserved EF by history.
Essential hypertension
Current volume status compensated.
Check baseline ECG.
Echocardiogram preserved biventricular function with no significant valvular abnormalities
LDL 52
Continue current regimen including Coreg, Cardura, hydralazine
Continue aspirin
Continue furosemide with caution monitor renal function and volume status.
Mild hyponatremia volume loop diuretics.
Follow BMP.
IDDM with persistent hyperglycemia
Hemoglobin A1c 8.1
Continue Lantus 14 at bedtime. Add insulin aspart for AC.
Continue basal bolus protocol with serial Accu-Cheks
Carbohydrate controlled diet
BPH
Monitor for retention.
On Flomax
Obstructive sleep apnea
Reportedly not compliant with CPAP.
Admission ABG pH 7.4 on room air 99%
Continue CPAP at bedtime.
Full code.
DVT prophylaxis Lovenox
Anticipated Discharge: > 48 hours
Subjective/Interval History
-
Date of Service: April 15, 2024
Objective Data
-
Labs:
Laboratory Results
04/15/24
07:00
WBC 14.4 H
Hgb 10.1 L
Hct 30.3 L
Plt Count 456 H
Sodium 133 L
Potassium 4.2
Chloride 95 L
Carbon Dioxide 27
BUN 22 H
Creatinine 0.9
Glucose 280 H
Calcium 9.5
Vital Signs:
Vital Signs
Temp Pulse Resp BP Pulse Ox
98.6 F 63 14 126/65 95
04/15/24 15:57 04/15/24 15:57 04/15/24 15:57 04/15/24 15:57 04/15/24 15:57
I&O
04/14/24 04/15/24 04/16/24
06:59 06:59 06:59
Intake Total 240 / 240 540 / 540
Balance 240 / 240 540 / 540
Physical Exam
-
General: Well Developed and No Apparent Distress
HEENT: Normocephalic, Atraumatic and Moist Mucous Membranes
Respiratory: Clear to Auscultation
Cardiac: Regular Rhythm and S1/S2; Negative Murmur, Rub or Gallop
GI: Soft, Nontender, Nondistended and Normal Bowel Sounds; Negative Organomegaly
Rectal: Deferred by Provider
Musculoskeletal: No Clubbing, No Cyanosis and No Edema
Skin: Negative Rash
Neuro: Nonfocal/Grossly Intact
[2024-04-15 19:50] LABS: Glucose - Point of Care 256 mg/dl (70-99)
[2024-04-15] MEDS: NOVOLOG vial 4 UNITS SC (20:14)
[2024-04-15] MEDS: SUBLIMAZE 25 MCG IV (20:23)
[2024-04-15] MEDS: APRESOLINE PO ×3 (21:31→22:07)
[2024-04-15] MEDS: INVANZ IV (21:31)
[2024-04-15] MEDS: LOVENOX SC (21:31)
[2024-04-15] MEDS: SENOKOT-S PO ×2 (21:50→22:05)
[2024-04-15] MEDS: NSS 1000 IV (21:50)
[2024-04-15] MEDS: CARDURA PO ×2 (21:51→22:05)
[2024-04-15] MEDS: COREG PO ×2 (21:52→22:06)
[2024-04-15] MEDS: MAG-TAB SR PO ×2 (21:52→22:04)
[2024-04-15 21:54] LABS: Glucose - Point of Care 229 mg/dl (70-99)
[2024-04-15] MEDS: MELATONIN PO (22:04)
[2024-04-15] MEDS: LANTUS 0.18 UNITS SC (22:07)
[2024-04-16] VITALS (9 sets, daily range): BP systolic 108–154; BP diastolic 47–71; BMI 30.5
--- NOTE | 2024-04-16 04:30 | DOWNTIME ---
There was a [employer] Downtime on 04/16/2024 from 0100 to 04/16/2024 at 0355. Downtime documentation of patient's care, including medication administrations, has been reconciled in the electronic record per guidelines. Refer to the
patient's paper chart under the miscellaneous tab to see printed paper medication records and downtime forms.
[2024-04-16 08:19] LABS: Glucose - Point of Care 269 mg/dl (70-99)
--- NOTE | 2024-04-16 08:22 | OR.RPT ---
Operative Report
Operative Report
Date of Operation: 04/15/2024
Pre Op Diagnosis:
1.) chronic limb threatening ischemia, bilateral lower extremities
2.) nonhealing bilateral lower extremity wounds
Post Op Diagnosis:
1.) chronic limb threatening ischemia, bilateral lower extremities
2.) nonhealing bilateral lower extremity wounds
Procedure:
1.) Intravascular lithotripsy to calcified left external iliac artery stenosis (8 mm x 60 mm M5+ shockwave balloon)
2.) Balloon angioplasty and stenting of left external iliac artery stenosis (8 mm x 39 mm Gobler VBX)
3.) Intravascular lithotripsy to calcified left superficial femoral artery and above-knee popliteal artery stenoses (6 mm x 80 mm E8 shockwave balloon)
4.) Balloon angioplasty and stenting of left superficial femoral artery and above-knee popliteal artery stenosis (overlapping 6 mm x 140 mm Zilver PTX distal; 6 mm x 80 mm Zilver PTX proximal)
5.) Balloon angioplasty and stenting of right common iliac artery stenosis (8 mm x 39 mm Gobler VBX stent)
6.) Sharp excisional debridement of left heel wound including skin and subcutaneous tissue (wound dimensions 8 cm x 3 cm)
7.) Sharp excisional debridement of left pfeiffer wound including skin, subcutaneous tissue, muscle and fascia (wound dimensions 20 cm x 5 cm)
8.) Sharp excisional debridement of right pfeiffer and ankle wound (wound dimensions 10 cm x 8 cm)
9.) Diagnostic aortobiiliac arteriogram
10.) Diagnostic BILATERAL lower extremity arteriograms
11.) Ultrasound-guided percutaneous access to the right common femoral artery
Surgeon: Emerson Millan III, MD
Veneer Department Manager: Elana Du MD PGY-8
Anesthesia: Sedation with local
Fluoroscopy:
58.5 min
1077 mGy
274.95 Gy.cm2
Complications: None
Estimated Blood Loss: 50 cc
History and Indications for Procedure: 78-year-old male with chronic limb threatening ischemia of his bilateral lower extremities manifested by nonhealing wound.
Procedure in Detail: Tristan Dumont was correctly identified and placed supine on the operating table. After adequate induction of anesthesia the bilateral groins were prepped and draped in the usual sterile fashion. A timeout was performed with
the nursing and anesthesia staff confirming the patient's identity as well as the nature and laterality of the procedure.
The right common femoral artery was identified under ultrasound guidance. The artery was patent. The superior and inferior aspects of the femoral head were identified with radiographic guidance and marked at the skin level. The proposed puncture
site was infiltrated with local anesthesia. We saved a copy of the ultrasound image to the medical record. Under ultrasound guidance we accessed the right common femoral artery with a micropuncture needle and upsized to a 5 Fr sheath over a [employer]
wire. The wire and a Shepherds hook flush catheter were advanced into the distal abdominal aorta and a diagnostic aorto-biiliac arteriogram was performed:
AORTO-ILIAC ARTERIOGRAM:
Aorta: Diffuse heavy aortic calcification identified. Narrow diameter distal abdominal aorta. Patent aorta
Right common iliac artery: Peripherally calcified. Focal high-grade stenosis in the mid common iliac artery
Right external iliac artery: Patent. Scattered stenoses identified
Left common iliac artery: Patent. Mild to moderate areas of stenosis identified. Calcified.
Left external iliac artery: Bulky focal calcified plaque in the proximal left external iliac artery contributing to a critical stenosis. Patent mid and distal external iliac artery
Under roadmap guidance using a Glidewire and the Shepherds hook catheter we selected the left common iliac artery and then the external iliac artery. This was very challenging due to the calcified lesion in the left external iliac artery and the
tight angle of the aortic bifurcation along with heavy calcification. A catheter was tracked up and over the aortic bifurcation and placed in the distal external iliac artery. Due to the high-grade stenosis in the left external iliac artery I
elected to treat this first before proceeding with intervention more distally.
Systemic heparin was administered. A floppy tip Amplatz wire was placed through the Quickcross catheter and into the left common femoral artery. A 7 Zambian 45 cm sheath was then tracked carefully up and over the aortic bifurcation. The radiopaque
tip was positioned at the iliac bifurcation on the left. I then exchanged out for a 0.014 wire. Due to the heavily calcified nature of the arterial disease and in an effort to modify the calcium to achieve maximum luminal gain with endovascular
intervention I elected to proceed with intravascular lithotripsy. A 8 mm x 60 mm M5+ Shockwave balloon was placed across the external iliac artery stenosis under roadmap guidance. Alternating rounds of lithotripsy pulse delivery at sub-nominal
pressure and angioplasty at nominal pressure was performed across the stenosis. In between rounds of pulse delivery and angioplasty the balloon was deflated and repositioned under roadmap guidance. All 300 pulses were delivered. Subsequent
arteriogram demonstrated an excellent technical result. Following this I then exchanged back out for a Amplatz wire. Under roadmap guidance I brought into position an 8 mm x 59 mm Gobler VBX stent. This was positioned and deployed across the
calcified plaque in the proximal external iliac artery. Subsequent arteriogram demonstrated an excellent technical result with a widely patent external iliac artery and no residual stenosis identified.
Following this I then reinserted the dilator for the 7 Zambian sheath and was then able to track over the Amplatz wire and positioned the sheath tip in the left common femoral artery. A diagnostic left lower extremity arteriogram was then performed
which demonstrated the following:
LEFT LOWER EXTREMITY:
Common femoral artery: Patent with no significant stenosis identified.
Profunda femoral artery: Patent with no significant stenosis identified.
Superficial femoral artery: Patent. Plaque with mild stenosis identified proximally. Calcified plaque in the mid to distal superficial femoral artery contributing to areas of focal high-grade stenosis.
Popliteal artery: Patent. Calcified plaque in the above-knee popliteal artery contributing to areas of focal high-grade stenosis. Popliteal artery behind the knee and below the knee patent.
Anterior tibial artery: Patent to the distal calf (extent of the arteriogram)
Tibioperoneal trunk: Patent
Peroneal artery: Patent to the distal calf (extent of the arteriogram)
Posterior tibial artery: Patent to the distal calf (extent of the arteriogram)
ENDOVASCULAR INTERVENTION: Selected the superficial femoral artery under roadmap guidance with Quickcross catheter and glidewire. The calcified SFA and popliteal artery disease was crossed with a Quickcross and Glidewire. The wire and catheter were
advanced into the popliteal artery behind the knee and subtraction angio confirmed proper position in the true lumen. Exchanged out for a 0.014 wire. Due to the heavily calcified nature of the arterial disease and in an effort to modify the calcium
to achieve maximum luminal gain with endovascular intervention I elected to proceed with intravascular lithotripsy. A 6 mm x 80 mm E8 shockwave balloon was positioned in the above-knee popliteal artery under roadmap guidance. Alternating rounds of
lithotripsy pulse delivery at sub-nominal pressure and angioplasty at nominal pressure was performed across the entire length of SFA/popliteal artery stenosis. In between rounds of pulse delivery and angioplasty the balloon was deflated and
repositioned under roadmap guidance. All 400 pulses were delivered.
Subsequent arteriogram demonstrated an outstanding technical result. The superficial femoral artery and popliteal artery were widely patent. Distally there were areas with focal dissection that I elected to treat with stenting. I brought into
position a 6 mm x 140 mm Zilver PTX stent and positioned this in the above-knee popliteal artery/distal superficial femoral artery under roadmap guidance. The stent was deployed and the delivery system removed over the wire. An additional 6 mm x 80
mm Zilver PTX stent was then overlapped slightly with the first stent and deployed more proximally. A 6 mm angioplasty balloon was used to profile the entire length of the stents.
COMPLETION ARTERIOGRAM: Outstanding technical result. Brisk flow through a widely patent superficial femoral artery and popliteal artery with no significant residual stenosis identified. Three-vessel tibial artery runoff identified to the distal
calf.
Satisfied with this result we concluded the procedure. The sheath tip was pulled back into the right external iliac artery. The wire was pulled back and readvanced into the abdominal aorta. A retrograde iliac arteriogram was performed which once
again demonstrated a significant stenosis in the right common iliac artery. Under roadmap guidance I brought into position an 8 mm x 39 mm Gobler VBX stent. This was positioned in the desired location across the right common iliac artery stenosis
and deployed. Subsequent arteriogram demonstrated an excellent technical result with a widely patent right common iliac artery stent and no significant residual stenosis identified.
Following this a runoff arteriogram of the right lower extremity was performed which demonstrated the following:
RIGHT LOWER EXTREMITY:
Common femoral artery: Patent with no significant stenosis identified
Profunda femoral artery: Patent with no significant stenosis identified
Superficial femoral artery: Patent. Scattered areas of moderate to severe calcified stenosis identified throughout the length of the superficial femoral artery.
Popliteal artery: Patent. Focal calcified plaque contributing to areas of high-grade stenosis identified above the knee and behind the knee. Below the knee popliteal artery patent.
Anterior tibial artery: Occluded
Tibioperoneal trunk: Patent
Peroneal artery: Patent to the mid calf (extent of the arteriogram)
Posterior tibial artery: Patent to the mid calf (extent of the arteriogram)
Once we had completed the endovascular portion of the procedure I then focused my attention on sharp excisional debridement of his bilateral lower extremity wounds.
Left heel: Using a scalpel, scissors and forceps, sharp excisional debridement was performed on the heel wound. Necrotic tissue was sharply debrided from the wound. This included skin and subcutaneous tissue. The deep subcutaneous tissue
following debridement was healthy in appearance and demonstrated bleeding. No purulence was identified. Debridement of the ischemic tissue continued to healthy bleeding tissue throughout. The wound dimensions debrided were 8 cm x 3 cm.
Left pfeiffer:Using a scalpel, scissors and forceps, sharp excisional debridement was performed on the left pfeiffer wound. Necrotic tissue was sharply debrided from the wound. This included skin, subcutaneous tissue, exposed desiccated necrotic tendon
and muscle. No purulence was identified. Debridement of the ischemic tissue continued to healthier bleeding deep tissue. The wound dimensions debrided were 20 cm x 5 cm.
Right pfeiffer and ankle:Using a scalpel, scissors and forceps, sharp excisional debridement was performed on the right pfeiffer and ankle wound. Necrotic skin and subcutaneous tissue was sharply debrided from the wound. No purulence was identified.
Debridement of the ischemic tissue continued to healthy bleeding deep tissue. The wound dimensions debrided were 10 cm x 8 cm.
The wounds were all then irrigated with saline. Hemostasis was achieved. Sterile dressings were applied to all wounds.
Protamine was administered. The 7 Zambian sheath was pulled from the right femoral access site. Direct manual pressure was held over the puncture site. Hemostasis was achieved. A sterile dressing was applied.
The patient tolerated the procedure well and was taken to the recovery area in stable condition.
Attestation: I was present and responsible for the entire procedure.
Signed:
Emerson Millan III, MD
[facility]
[phone] (cbvy)
[2024-04-16] MEDS: NOVOLOG FLEXPEN 6 UNITS SC ×3 (09:08→16:46)
[2024-04-16] MEDS: NOVOLOG FLEXPEN-MODERATE RESISTANCE 5 UNITS SC ×2 (09:08→14:01)
[2024-04-16] MEDS: APRESOLINE 10 MG PO ×3 (09:11→21:38)
[2024-04-16] MEDS: FLOMAX 0.4 MG PO (09:11)
[2024-04-16] MEDS: LASIX 40 MG PO (09:11)
[2024-04-16] MEDS: MAG-TAB SR 84 MG PO ×2 (09:11→19:57)
[2024-04-16] MEDS: COREG 25 MG PO ×2 (09:11→19:57)
[2024-04-16] MEDS: ASPIR LOW (ENTERIC COATED) 81 MG PO (09:11)
[2024-04-16] MEDS: PROTONIX 40 MG PO (09:11)
[2024-04-16 09:12] LABS: % Basophils 0.1 % (0-2); % Eosinophils 0.1 % (0-6); % Immature Granulocytes 0.9 % (0-0.5); % Lymphocytes 8.3 % (20.5-51.1); % Monocytes 4.4 % (1.7-9.3); % Neutrophils 86.2 % (42.2-75.2); Absolute Immature Granulocytes 0.2 10^3/uL (0-0.05); Absolute Lymphocytes 1.5 10^3/uL (1.2-3.4); Absolute Monocytes 0.8 10^3/uL (0.1-0.6); Absolute Neutrophils 15.8 10^3/uL (1.4-6.5); Hematocrit 28.7 % (39.0-52.0); Hemoglobin 9.5 g/dL (13.0-18.0); Mean Corp Hgb Conc. 33.1 g/dL (33.0-37.0); Mean Corpuscular Hgb 28.8 pg (27.0-31.0); Nucleated Red Blood Cells % 0 % (-); Red Cell Dist. Width 14.1 % (11.5-14.5); White Blood Cell Count 18.4 10^3/uL (4.8-10.8)
[2024-04-16] MEDS: SENOKOT-S 1 TABLET PO ×2 (09:12→19:58)
[2024-04-16] MEDS: MIRALAX 17 GRAMS PO (09:12)
[2024-04-16 09:45] LABS: Vancomycin Random 11.6 ug/ml
--- NOTE | 2024-04-16 10:09 | W.PN.VS ---
Addendum entered and electronically signed by Arya Moore MD 04/16/24 15:15:
Seen and examined with ARCHIVAL RECORDS CLERK's. Agree with findings as noted below. Seen and examined earlier this a.m., this is a late entry. Patient was without significant new complaints. Right groin puncture site flat, no hematoma. Wounds were dressed,
reviewed wound care pictures. Wounds all clean. Plan/as discussed and noted below. Discussed plan also with patient's daughter who is at bedside.
Original Note:
Today's Communication / Plan
-
Seen and assessed with Dr. Moore
Assessment/Plan
-
POD 1
Intravascular lithotripsy to calcified left external iliac artery stenosis
Balloon angioplasty and stenting of left external iliac artery stenosis
Intravascular lithotripsy to calcified left superficial femoral artery and above-knee popliteal artery stenoses
Balloon angioplasty and stenting of left superficial femoral artery and above-knee popliteal artery stenosis
Balloon angioplasty and stenting of right common iliac artery stenosis
Sharp excisional debridement of left heel wound including skin and subcutaneous tissue
Sharp excisional debridement of left pfeiffer wound including skin, subcutaneous tissue, muscle and fascia
Sharp excisional debridement of right pfeiffer and ankle wound
Plan:
-VAC for heel site-will return to place today
-Wet-to-dry qshift BL leg dressings
-Plan for intervention on right side sunday/sunday, will follow up with team
Subjective Data
-
Date of Service: April 16, 2024
Patient stated bedside is a with Dr. Moore. Patient offers no complaints at this time. No events overnight
Objective Data
-
Vital Signs
Temp Pulse Resp BP Pulse Ox
97.7 F 83 18 110/50 98
04/16/24 07:35 04/16/24 07:35 04/16/24 07:35 04/16/24 07:35 04/16/24 07:35
Intake and Output
1004/16/24 04/17/24
06:59 06:59 06:59
Intake Total 540 / 540
Output Total 400 / 400
Balance 540 / 540 -400 / -400
Intake:
Oral fluids 540 / 540
Output:
Urine, Voided 400 / 400
Other:
How many times incontinent 2
MODERATE amount urine
How many times incontinent 2 1
SATURATED amount urine
Lab Results
04/16/24 08:39
Calcium Cancelled 04/16/24 08:39
Magnesium 1.7 mg/dl (1.6-2.3) 04/07/24 10:25
Total Bilirubin 0.7 mg/dl (0.2-1.3) 04/06/24 07:24
AST 23 U/L (17-59) 04/06/24 07:24
ALT 16 U/L (0-50) 04/06/24 07:24
Alkaline Phosphatase 78 U/L (38-126) 04/06/24 07:24
Total Protein 5.8 g/dl (6.3-8.2) L 04/06/24 07:24
Albumin 3.0 g/dl (3.5-5.0) L 04/06/24 07:24
Physical Exam
-
Awake, alert
No tachypnea on room air
No tachycardia
Abdomen soft
Right groin site clean, dry, intact, soft
Redressed left lower extremity surgical sites, wound beds clean
Left heel with eschar
--- NOTE | 2024-04-16 10:45 | PHA.VAN.FU ---
Vancomycin Assessment / Plan
- Assessment
Renal Function: SCR Decreasing
WBC's are: Trending Up
In the past 24 hrs, patient has been: Afebrile
Concomitant Antimicrobials: ertapenem
- Assessment - Therapeutic Drug Monitoring
Random Level: 11.6 - drawn ~21H after previous dose of 1500mg
- Dosing Plan
Dosing by Level: Re-dose today (Vanc 1500mg)
- Monitoring Plan
Random Level: 04/17 0600
Monitoring Comments: follow renal function s/p vascular surgery
- Follow Up
Pharmacy will continue to follow.
Vancomycin Follow UP
- -
Patient Age: 78
Patient Sex: Male
Vancomycin Day #: 12
Indication: Skin And Soft Tissue
Requesting Provider: Diane Hilton / Dr. Lombardi
Pertinent Antimicrobial Allergies:
no pertinent antibiotic allergies
Height / Weight:
Height 5 ft 9 in
Actual Weight 93.468 kg
IBW in k.7
Pertinent Past Medical History: DM 2
- Vital Signs / Lab Results
Temp Pulse Resp BP Pulse Ox
97.7 F 83 18 110/50 98
04/16/24 07:35 04/16/24 07:35 04/16/24 07:35 04/16/24 07:35 04/16/24 07:35
Lab Results - Hematology
04/13/24 04/15/24 04/16/24
07:17 07:00 08:39
WBC 12.2 H 14.4 H 18.4 H
Lab Results - Chemistry
04/13/24 04/15/24 04/16/24
07:17 07:00 08:39
BUN 24 H 22 H Cancelled
Creatinine 1.0 0.9 Cancelled
Estimated Creat Clear 72 79 Cancelled
Therapeutic Drug Monitoring
Vancomycin Peak 27.6 ug/ml (18-26) H 04/10/24 22:26
Vancomycin Trough 21.4 ug/ml (5-20) H* 04/11/24 05:49
Random Vancomycin 11.6 ug/ml 04/16/24 08:39
[2024-04-16] MEDS: VANCOCIN 300 MG IV (11:11)
[2024-04-16] MEDS: VANCOCIN 300 ML IV (11:11)
[2024-04-16] MEDS: DAKIN'S SOLUTION 0.125% 1/4 STRENGTH 1 ML TOPICAL (11:12)
[2024-04-16] MEDS: LOTRIMIN 1% CREAM 1 APPLIC TOPICAL ×2 (11:12→19:58)
[2024-04-16] MEDS: DESENEX/MITRAZOL/ZEASORB 1 APPLIC TOPICAL ×2 (11:12→19:58)
[2024-04-16 11:39] LABS: Blood Urea Nitrogen 24 mg/dl (9-20); Carbon Dioxide 23 mmol/L (22-30); Chloride 97 mmol/L (98-107); Estimated Creatinine Clearance 89 ml/min; Glucose 269 mg/dl (70-99); Potassium 4.4 mmol/L (3.5-5.1); Sodium 132 mmol/L (135-145); eGFR > 60.00
[2024-04-16 11:39] LABS: Platelet Count 468 10^3/uL (130-400)
[2024-04-16 11:53] LABS: Glucose - Point of Care 276 mg/dl (70-99)
--- NOTE | 2024-04-16 13:10 | PTOTSP ---
Physician: Please clarify WB status to allow for PT evaluation and OOB mobility. Thank you.
[2024-04-16] MEDS: INVANZ 60 MG IV (16:24)
--- NOTE | 2024-04-16 16:24 | W.PN.UPDATE ---
Update Note
Progress Note Update
Wound VAC placed to left heel without incident or difficulty, wound VAC suction. Dressing CDI. 8cm Lx 3cm W x 0cm depth.
[2024-04-16] MEDS: LOVENOX SC (16:25)
--- NOTE | 2024-04-16 16:29 | W.PN.HOSP.TC ---
Today's Communication/Plan
-
Continue IV antibiotics.
Wound care
Pain control with addition of hydromorphone
Monitor oral intake
Adjust insulin regimen for hyperglycemia
Assessment / Plan
Assessment / Plan
Impression:
Bilateral lower extremity trophic wounds with dry gangrene and acute on chronic cellulitis
Suspect severe PAD.
Altered mental status secondary to toxic metabolic encephalopathy.
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
Mild hyponatremia sodium 133
Other conditions:
CAD with history of PCI unknown details.
CHF unknown EF
Anemia of chronic disease.
IDDM.
Essential hypertension.
BPH.
Obstructive sleep apnea not compliant with CPAP
Chronic ambulatory dysfunction likely multifactorial (PAD, diabetic neuropathy, cognitive status)
Plan:
Bilateral lower extremity wounds with dry gangrene at the heels.
Suspect severe PAD.
Arterial ultrasound
1. As above, examination was limited by the patient's inability to remain motionless secondary to pain. Ankle brachial indices were unobtainable.
2. Right toe brachial index of 0.16. Right common femoral waveform is multiphasic, but somewhat dampened suggesting probable component of inflow disease. There are monophasic dampened waveforms throughout the superficial femoral and popliteal
arteries. No high-grade focal stenosis is identified sonographically.
3. Left toe brachial index of 0.07. The left common femoral waveform is monophasic, consistent with inflow disease. There is moderate to severe stenosis of the mid left superficial femoral artery.
X-ray with osteoporosis.
CTA Overall moderate diffuse atherosclerotic disease, as detailed above. The right superficial femoral artery contains moderate calcification with focal near complete occlusion distally. In the right lower leg, there is only two-vessel proximal
run off with nonvisualization of the majority of the anterior tibial artery and cut off of the peroneal artery just above the ankle.
Wound culture with MRSA and ESBL Klebsiella sensitive to Zosyn.
Afebrile and hemodynamically stable. Noted with rising WBC.
Sepsis ruled out
Discussed with vascular surgery
Difficult situation: Left lower extremity severe wound with tendon exposed with concern for osteomyelitis. Limb with less likely solvable at this point. Right lower extremity with proving vascular insufficiency may require intervention. If any
decision should be made in terms of consolidating procedure with consideration of a left AKA and attempt of revascularization on the right.
Infectious disease input appreciated.
Wound culture with MRSA and Klebsiella ESBL
MRI of the left lower extremity negative for osteomyelitis
Antibiotics transition from vancomycin/Zosyn to vancomycin/ertapenem
Status post arteriogram on 04/15 with bilateral lower extremity revascularization
Continue wound care.
Altered mental status suspect toxic metabolic encephalopathy in the settings of acute infection.
Remains lethargic with no focal findings on exam.
Mental status reportedly improved with initiation of antibiotics.
Suspect underlying dementia vascular type.
CT head without acute abnormalities
Monitor closely.
CAD.
CHF preserved EF by history.
Essential hypertension
Current volume status compensated.
Check baseline ECG.
Echocardiogram preserved biventricular function with no significant valvular abnormalities
LDL 52
Continue current regimen including Coreg, Cardura, hydralazine
Continue aspirin
Continue furosemide with caution monitor renal function and volume status.
Mild hyponatremia volume loop diuretics.
Follow BMP.
IDDM with persistent hyperglycemia
Hemoglobin A1c 8.1
Continue Lantus 14 at bedtime. Add insulin aspart for AC.
Continue basal bolus protocol with serial Accu-Cheks
Carbohydrate controlled diet
BPH
Monitor for retention.
On Flomax
Obstructive sleep apnea
Reportedly not compliant with CPAP.
Admission ABG pH 7.4 on room air 99%
Continue CPAP at bedtime.
Full code.
DVT prophylaxis Lovenox
Anticipated Discharge: > 48 hours
Subjective/Interval History
-
Date of Service: April 16, 2024
Objective Data
-
Labs:
Laboratory Results
04/16/24 04/16/24
08:39 11:18
WBC 18.4 H
Hgb 9.5 L
Hct 28.7 L
Plt Count 468 H
Sodium Cancelled 132 L
Potassium Cancelled 4.4
Chloride Cancelled 97 L
Carbon Dioxide Cancelled 23
BUN Cancelled 24 H
Creatinine Cancelled 0.8
Glucose Cancelled 269 H
Calcium Cancelled 9.0
Vital Signs:
Vital Signs
Temp Pulse Resp BP Pulse Ox
98.3 F 83 16 132/55 99
04/16/24 14:57 04/16/24 14:57 04/16/24 14:57 04/16/24 14:57 04/16/24 14:57
I&O
04/15/24 04/16/24 04/17/24
06:59 06:59 06:59
Intake Total 540 / 540
Output Total 400 / 400
Balance 540 / 540 -400 / -400
Physical Exam
-
General: Well Developed and No Apparent Distress
HEENT: Normocephalic, Atraumatic and Moist Mucous Membranes
Respiratory: Clear to Auscultation
Cardiac: Regular Rhythm and S1/S2; Negative Murmur, Rub or Gallop
GI: Soft, Nontender, Nondistended and Normal Bowel Sounds; Negative Organomegaly
Rectal: Deferred by Provider
Musculoskeletal: No Clubbing, No Cyanosis and No Edema
Skin: Negative Rash
Neuro: Nonfocal/Grossly Intact
--- NOTE | 2024-04-16 16:37 | W.PN.ID1 ---
Date of Service
Date of Service: April 16, 2024
Today's Communication
Continue abx's.
Assessment / Plan
# Acute on chronic extensive ischemic wounds LLE> RLE.
LLE tendon exposed.
# Severe PAD
# Leukocytosis
# DM
- 04/15/24 s/p LLE and RLE endovasular intervention
s/p debridement of left heel pfeiffer to fascia and right pfeiffer and ankle wounds.
- OR left tissue cx pending.
- RLE ankle surface wound swab MRSA and ESBL-Klebsiella isolated from wound.
- Plan for RLE vascular intervention Sunday.
- Continue Ertapenem (d12 abx).
- Continue Vancomycin (d12) for now.
# Additional Past Medical History:
DM2
HTN
HLD
PAD
BLE lymphedema
Chronic BLE wounds follows at [facility]
CAD s/p stent
CHF
FRANCESCO
BPH
Chief Complaint
-: Other (Ischemic wounds)
Subjective / Review of Systems
+ pain
Vital Signs / Physical Exam
Vital Signs
Vital Signs
Temp Pulse Resp BP Pulse Ox
98.3 F 83 16 132/55 99
04/16/24 14:57 04/16/24 14:57 04/16/24 14:57 04/16/24 14:57 04/16/24 14:57
Physical Exam
Constitutional: No Acute Distress
Pulmonary: Clear
Gastrointestinal: Soft, Non Tender and Non Distended
Wound: Other (bilateral LE dressings dry)
Objective Data
Lab Data
Lab Results
04/16/24 08:39
04/16/24 11:18
Estimated Creat Clear 89 ml/min 04/16/24 11:18
Lactic Acid 1.1 mmol/L (0.7-2.0) 04/04/24 16:51
Total Bilirubin 0.7 mg/dl (0.2-1.3) 04/06/24 07:24
AST 23 U/L (17-59) 04/06/24 07:24
ALT 16 U/L (0-50) 04/06/24 07:24
Alkaline Phosphatase 78 U/L (38-126) 04/06/24 07:24
Most recent labs reviewed.
Micro Results:
04/15/24 19:21 Tissue Culture - Pending
Leg - Left Gram Stain - Preliminary
04/04/24 21:49 Blood Culture - Final
Blood/Venous No Growth - Final Report
04/04/24 19:45 Blood Culture - Final
Blood/Venous No Growth - Final Report
04/04/24 19:45 Wound Culture - Final
Foot - Right Staph aureus MRSA
Klebsiella pneumoniae-ESBL
Gram Stain - Final
04/04/24 19:46 Urine Culture - Final
Urine NO GROWTH
04/05/24 04:34 MRSA Screen - Final
Nose Staph aureus MRSA
04/05/24 15:49 Influenza Types A & B (JEANNIE) - Final
Nasal Swab Negative for Influenza A & B, NAAT
Negative results must be combined with clinical observations
and patient history.
Nucleic Acid Amplification test (NAAT)performed on the
[employer] platform.
04/10/24 MRI LLE wo: No MRI evidence for acute osteomyelitis in the left hindfoot or midfoot. Multiple wounds in the distal left lower leg and ankle.
04/09/24 CTA: Overall moderate diffuse atherosclerotic disease, as detailed above. The right superficial femoral artery contains moderate calcification with focal near complete occlusion distally. In the right lower leg, there is only two-vessel
proximal run off with nonvisualization of the majority of the anterior tibial artery and cut off of the peroneal artery just above the ankle.
[2024-04-16 16:38] LABS: Glucose - Point of Care 313 mg/dl (70-99)
[2024-04-16] MEDS: NOVOLOG FLEXPEN-MODERATE RESISTANCE 7 UNITS SC (16:47)
[2024-04-16 21:33] LABS: Glucose - Point of Care 237 mg/dl (70-99)
[2024-04-16] MEDS: MELATONIN 5 MG PO (21:38)
[2024-04-16] MEDS: CARDURA 2 MG PO (21:38)
[2024-04-16] MEDS: LANTUS 0.18 UNITS SC (21:38)
[2024-04-17 03:54] VITALS: BP 143/50
[2024-04-17 03:55] VITALS: BMI 31.5
[2024-04-17 07:46] VITALS: BP 139/50
[2024-04-17 07:57] LABS: Glucose - Point of Care 186 mg/dl (70-99)
[2024-04-17] MEDS: NOVOLOG FLEXPEN-MODERATE RESISTANCE 1 UNITS SC (08:21)
[2024-04-17] MEDS: NOVOLOG FLEXPEN 6 UNITS SC ×3 (08:21→17:01)
[2024-04-17] MEDS: MIRALAX 17 GRAMS PO (08:22)
[2024-04-17] MEDS: FLOMAX 0.4 MG PO (08:23)
[2024-04-17] MEDS: COREG 25 MG PO (08:23)
[2024-04-17] MEDS: PROTONIX 40 MG PO (08:23)
[2024-04-17] MEDS: APRESOLINE 10 MG PO ×3 (08:23→22:03)
[2024-04-17] MEDS: ASPIR LOW (ENTERIC COATED) 81 MG PO (08:23)
[2024-04-17] MEDS: SENOKOT-S 1 TABLET PO (08:24)
[2024-04-17] MEDS: MAG-TAB SR 84 MG PO (08:24)
[2024-04-17] MEDS: LASIX 40 MG PO (08:24)
[2024-04-17] MEDS: TYLENOL 650 MG PO (08:25)
[2024-04-17] MEDS: DAKIN'S SOLUTION 0.125% 1/4 STRENGTH 1 ML TOPICAL (08:28)
[2024-04-17] MEDS: DESENEX/MITRAZOL/ZEASORB 1 APPLIC TOPICAL (08:29)
[2024-04-17] MEDS: LOTRIMIN 1% CREAM 1 APPLIC TOPICAL (08:29)
[2024-04-17 10:53] LABS: Vancomycin Random 11.4 ug/ml
--- NOTE | 2024-04-17 11:41 | PHA.VAN.FU ---
Vancomycin Assessment / Plan
- Assessment
Renal Function: No New Labs Today
In the past 24 hrs, patient has been: Afebrile
Concomitant Antimicrobials: ertapenem
- Assessment - Therapeutic Drug Monitoring
Random Level: 11.4 - drawn ~23H after previous dose of 1500mg
- Dosing Plan
Dosing by Level: Re-dose today (Vanc 1500mg)
- Monitoring Plan
Random Level: 04/18 0600
Monitoring Comments: follow renal function s/p vascular surgery
Plan for RLE vascular intervention Sunday
- Follow Up
Pharmacy will continue to follow.
Vancomycin Follow UP
- -
Patient Age: 78
Patient Sex: Male
Vancomycin Day #: 13
Indication: Skin And Soft Tissue
Requesting Provider: Diane Hilton / Dr. Lombardi
Pertinent Antimicrobial Allergies:
no pertinent antibiotic allergies
Height / Weight:
Height 5 ft 9 in
Actual Weight 96.842 kg
IBW in k.7
Pertinent Past Medical History: DM 2
- Vital Signs / Lab Results
Temp Pulse Resp BP Pulse Ox
98.0 F 75 18 139/50 98
04/17/24 07:46 04/17/24 07:46 04/17/24 07:46 04/17/24 07:46 04/17/24 07:46
Lab Results - Hematology
04/15/24 04/16/24
07:00 08:39
WBC 14.4 H 18.4 H
Lab Results - Chemistry
04/15/24 04/16/24 04/16/24
07:00 08:39 11:18
BUN 22 H Cancelled 24 H
Creatinine 0.9 Cancelled 0.8
Estimated Creat Clear 79 Cancelled 89
Microbiology Results
04/15/24 19:21 Gram Stain - Preliminary
Leg - Left
Therapeutic Drug Monitoring
Vancomycin Peak 27.6 ug/ml (18-26) H 04/10/24 22:26
Vancomycin Trough 21.4 ug/ml (5-20) H* 04/11/24 05:49
Random Vancomycin 11.4 ug/ml 04/17/24 10:23
--- NOTE | 2024-04-17 12:03 | W.PN.VS ---
Addendum entered and electronically signed by Arya Moore MD 04/17/24 12:09:
Seen and examined with [employer]HA[employer]ING INSPECTOR's. Agree with findings as noted below. Left VAC in place, no surrounding cellulitis. Plan/as discussed and noted below.
Original Note:
Today's Communication / Plan
-
Patient seen and examined at bedside with Dr. Arya Moore, below plan reviewed with attending.
Assessment/Plan
-
POD 2
Intravascular lithotripsy to calcified left external iliac artery stenosis
Balloon angioplasty and stenting of left external iliac artery stenosis
Intravascular lithotripsy to calcified left superficial femoral artery and above-knee popliteal artery stenoses
Balloon angioplasty and stenting of left superficial femoral artery and above-knee popliteal artery stenosis
Balloon angioplasty and stenting of right common iliac artery stenosis
Sharp excisional debridement of left heel wound including skin and subcutaneous tissue
Sharp excisional debridement of left pfeiffer wound including skin, subcutaneous tissue, muscle and fascia
Sharp excisional debridement of right pfeiffer and ankle wound
Plan:
-Continue VAC
-Wet-to-dry q shift BL leg dressings
-Plan for intervention on right side sunday/sunday, will follow up with team when OR day determined
Subjective Data
-
Date of Service: April 17, 2024
Patient seen and examined at bedside, offers no complaints.
Objective Data
-
Vital Signs
Temp Pulse Resp BP Pulse Ox
98.0 F 75 18 139/50 98
04/17/24 07:46 04/17/24 07:46 04/17/24 07:46 04/17/24 07:46 04/17/24 07:46
Intake and Output
04/16/24 04/17/24 04/18/24
06:59 06:59 06:59
Intake Total 500 / 500
Output Total 400 / 400
Balance -400 / -400 500 / 500
Intake:
Oral fluids 500 / 500
Output:
Urine, Voided 400 / 400
Other:
How many times incontinent 1 2
SATURATED amount urine
Lab Results
04/16/24 08:39
04/16/24 11:18
Calcium 9.0 mg/dl (8.4-10.2) 04/16/24 11:18
Magnesium 1.7 mg/dl (1.6-2.3) 04/07/24 10:25
Total Bilirubin 0.7 mg/dl (0.2-1.3) 04/06/24 07:24
AST 23 U/L (17-59) 04/06/24 07:24
ALT 16 U/L (0-50) 04/06/24 07:24
Alkaline Phosphatase 78 U/L (38-126) 04/06/24 07:24
Total Protein 5.8 g/dl (6.3-8.2) L 04/06/24 07:24
Albumin 3.0 g/dl (3.5-5.0) L 04/06/24 07:24
Physical Exam
-
Awake, alert
No tachypnea on room air
No tachycardia
Abdomen soft
Right groin site clean, dry, intact, soft
BL calf dressing CDI, left heel wound vac CDI and holding suction
[2024-04-17] MEDS: VANCOCIN 300 MG IV (12:08)
[2024-04-17] MEDS: VANCOCIN 300 ML IV (12:08)
[2024-04-17 12:13] LABS: Glucose - Point of Care 206 mg/dl (70-99)
[2024-04-17] MEDS: NOVOLOG FLEXPEN-MODERATE RESISTANCE 3 UNITS SC ×2 (12:14→17:01)
[2024-04-17 12:35] VITALS: BP 122/50; PULSE 73; O2SAT 98
--- NOTE | 2024-04-17 12:49 | WOUNDNOTE ---
WOC RN Note: Mansoor Vegas re: patient has L heel wound vac and will need at SNF when discharged.
--- NOTE | 2024-04-17 15:33 | W.PN.HOSP.TC ---
Today's Communication/Plan
-
IV antibiotics
Monitor white count.
Wound care.
Monitor blood glucose. No insulin changes today.
Assessment / Plan
Assessment / Plan
Impression:
Bilateral lower extremity trophic wounds with dry gangrene and acute on chronic cellulitis
Suspect severe PAD.
Altered mental status secondary to toxic metabolic encephalopathy.
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
Mild hyponatremia sodium 133
Other conditions:
CAD with history of PCI unknown details.
CHF unknown EF
Anemia of chronic disease.
IDDM.
Essential hypertension.
BPH.
Obstructive sleep apnea not compliant with CPAP
Chronic ambulatory dysfunction likely multifactorial (PAD, diabetic neuropathy, cognitive status)
Plan:
Bilateral lower extremity wounds with dry gangrene at the heels.
Suspect severe PAD.
Arterial ultrasound
1. As above, examination was limited by the patient's inability to remain motionless secondary to pain. Ankle brachial indices were unobtainable.
2. Right toe brachial index of 0.16. Right common femoral waveform is multiphasic, but somewhat dampened suggesting probable component of inflow disease. There are monophasic dampened waveforms throughout the superficial femoral and popliteal
arteries. No high-grade focal stenosis is identified sonographically.
3. Left toe brachial index of 0.07. The left common femoral waveform is monophasic, consistent with inflow disease. There is moderate to severe stenosis of the mid left superficial femoral artery.
X-ray with osteoporosis.
CTA Overall moderate diffuse atherosclerotic disease, as detailed above. The right superficial femoral artery contains moderate calcification with focal near complete occlusion distally. In the right lower leg, there is only two-vessel proximal
run off with nonvisualization of the majority of the anterior tibial artery and cut off of the peroneal artery just above the ankle.
Wound culture with MRSA and ESBL Klebsiella sensitive to Zosyn.
Afebrile and hemodynamically stable. Noted with rising WBC.
Sepsis ruled out
Discussed with vascular surgery
Difficult situation: Left lower extremity severe wound with tendon exposed with concern for osteomyelitis. Limb with less likely solvable at this point. Right lower extremity with proving vascular insufficiency may require intervention. If any
decision should be made in terms of consolidating procedure with consideration of a left AKA and attempt of revascularization on the right.
Infectious disease input appreciated.
Wound culture with MRSA and Klebsiella ESBL
MRI of the left lower extremity negative for osteomyelitis
Antibiotics transition from vancomycin/Zosyn to vancomycin/ertapenem
Status post arteriogram on 04/15 with left lower extremity I&D and revascularization
Continue wound care including wound VAC to the left heel
Plan is for repeat arteriogram and right lower extremity revascularization attempt early next week
Altered mental status suspect toxic metabolic encephalopathy in the settings of acute infection.
Remains lethargic with no focal findings on exam.
Mental status reportedly improved with initiation of antibiotics.
Suspect underlying dementia vascular type.
CT head without acute abnormalities
Monitor closely.
CAD.
CHF preserved EF by history.
Essential hypertension
Current volume status compensated.
Check baseline ECG.
Echocardiogram preserved biventricular function with no significant valvular abnormalities
LDL 52
Continue current regimen including Coreg, Cardura, hydralazine
Continue aspirin
Continue furosemide with caution monitor renal function and volume status.
Mild hyponatremia volume loop diuretics.
Follow BMP.
IDDM with persistent hyperglycemia
Hemoglobin A1c 8.1
Continue Lantus 14 at bedtime. Add insulin aspart for AC.
Continue basal bolus protocol with serial Accu-Cheks
Carbohydrate controlled diet
BPH
Monitor for retention.
On Flomax
Obstructive sleep apnea
Reportedly not compliant with CPAP.
Admission ABG pH 7.4 on room air 99%
Continue CPAP at bedtime.
Full code.
DVT prophylaxis Lovenox
Anticipated Discharge: > 48 hours
Subjective/Interval History
-
Date of Service: April 17, 2024
Objective Data
-
Vital Signs:
Vital Signs
Temp Pulse Resp BP Pulse Ox
98.0 F 75 18 139/50 98
04/17/24 07:46 04/17/24 07:46 04/17/24 07:46 04/17/24 07:46 04/17/24 07:46
I&O
04/16/24 04/17/24 04/18/24
06:59 06:59 06:59
Intake Total 500 / 500
Output Total 400 / 400
Balance -400 / -400 500 / 500
Physical Exam
-
General: Well Developed and No Apparent Distress
HEENT: Normocephalic, Atraumatic and Moist Mucous Membranes
Respiratory: Clear to Auscultation
Cardiac: Regular Rhythm and S1/S2; Negative Murmur, Rub or Gallop
GI: Soft, Nontender, Nondistended and Normal Bowel Sounds; Negative Organomegaly
Rectal: Deferred by Provider
Musculoskeletal: No Clubbing, No Cyanosis and No Edema
Skin: Negative Rash
Neuro: Nonfocal/Grossly Intact
--- NOTE | 2024-04-17 15:43 | CM ---
CM reviewed chart, patient with wound vac, update to [facility]. Patient remains on IV antibiotics. Updates sent to [facility] in [facility]. CM will continue to follow for all discharge planning needs.
Plan; return to [facility] when stable, with new wound vac.
[2024-04-17] MEDS: INVANZ 60 MG IV (15:45)
[2024-04-17] MEDS: LOVENOX 40 MG SC (15:45)
[2024-04-17 15:52] VITALS: BP 128/47
--- NOTE | 2024-04-17 16:38 | W.PN.ID1 ---
Date of Service
Date of Service: April 17, 2024
Today's Communication
Continue abx's through procedure Sun/.
Assessment / Plan
# Acute on chronic extensive ischemic wounds LLE> RLE.
LLE tendon exposed.
# Severe PAD
# Leukocytosis trended up post-op
# DM
- 04/15/24 s/p LLE and RLE endovasular intervention
s/p debridement of left heel pfeiffer to fascia and right pfeiffer and ankle wounds.
- OR left tissue cx pending.
- RLE ankle surface wound swab MRSA and ESBL-Klebsiella isolated from wound.
- Plan for RLE vascular intervention Sunday.
- Continue continue Ertapenem (d13 ) through procedure next week.
- Continue Vancomycin (d13) through procedure next week.
# Additional Past Medical History:
DM2
HTN
HLD
PAD
BLE lymphedema
Chronic BLE wounds follows at [facility]
CAD s/p stent
CHF
FRANCESCO
BPH
Chief Complaint
-: Other (Ischemic wounds)
Subjective / Review of Systems
Feels OK
Vital Signs / Physical Exam
Vital Signs
Vital Signs
Temp Pulse Resp BP Pulse Ox
98.1 F 74 17 128/47 99
04/17/24 15:52 04/17/24 15:52 04/17/24 15:52 04/17/24 15:52 04/17/24 15:52
Physical Exam
Constitutional: No Acute Distress and Comfortable
Pulmonary: Clear
Gastrointestinal: Non Tender and Non Distended
Wound: Other (left heel wound vac in place; bilateral dressing intact)
Objective Data
Lab Data
Lab Results
04/16/24 08:39
04/16/24 11:18
Estimated Creat Clear 89 ml/min 04/16/24 11:18
Lactic Acid 1.1 mmol/L (0.7-2.0) 04/04/24 16:51
Total Bilirubin 0.7 mg/dl (0.2-1.3) 04/06/24 07:24
AST 23 U/L (17-59) 04/06/24 07:24
ALT 16 U/L (0-50) 04/06/24 07:24
Alkaline Phosphatase 78 U/L (38-126) 04/06/24 07:24
Most recent labs reviewed.
Micro Results:
04/15/24 19:21 Tissue Culture - Preliminary
Leg - Left Gram Stain - Preliminary
04/04/24 21:49 Blood Culture - Final
Blood/Venous No Growth - Final Report
04/04/24 19:45 Blood Culture - Final
Blood/Venous No Growth - Final Report
04/04/24 19:45 Wound Culture - Final
Foot - Right Staph aureus MRSA
Klebsiella pneumoniae-ESBL
Gram Stain - Final
04/04/24 19:46 Urine Culture - Final
Urine NO GROWTH
04/05/24 04:34 MRSA Screen - Final
Nose Staph aureus MRSA
04/05/24 15:49 Influenza Types A & B (JEANNIE) - Final
Nasal Swab Negative for Influenza A & B, NAAT
Negative results must be combined with clinical observations
and patient history.
Nucleic Acid Amplification test (NAAT)performed on the
[employer] platform.
04/10/24 MRI LLE wo: No MRI evidence for acute osteomyelitis in the left hindfoot or midfoot. Multiple wounds in the distal left lower leg and ankle.
04/09/24 CTA: Overall moderate diffuse atherosclerotic disease, as detailed above. The right superficial femoral artery contains moderate calcification with focal near complete occlusion distally. In the right lower leg, there is only two-vessel
proximal run off with nonvisualization of the majority of the anterior tibial artery and cut off of the peroneal artery just above the ankle.
[2024-04-17 16:56] LABS: Glucose - Point of Care 208 mg/dl (70-99)
[2024-04-17] MEDS: DESENEX/MITRAZOL/ZEASORB TOPICAL (20:36)
[2024-04-17] MEDS: COREG PO (20:36)
[2024-04-17] MEDS: MAG-TAB SR PO (20:36)
[2024-04-17] MEDS: LOTRIMIN 1% CREAM TOPICAL (20:36)
[2024-04-17] MEDS: SENOKOT-S PO (20:36)
[2024-04-17 21:50] LABS: Glucose - Point of Care 193 mg/dl (70-99)
[2024-04-17] MEDS: MELATONIN 5 MG PO (22:03)
[2024-04-17] MEDS: CARDURA 2 MG PO (22:03)
[2024-04-17] MEDS: LANTUS 0.18 UNITS SC (22:03)
[2024-04-17 23:30] VITALS: BP 165/58
[2024-04-18 03:38] VITALS: BP 113/57
[2024-04-18 06:00] VITALS: BMI 31.2
[2024-04-18 07:00] VITALS: BP 146/58
[2024-04-18 08:14] LABS: Glucose - Point of Care 169 mg/dl (70-99)
[2024-04-18 08:51] LABS: Vancomycin Random 12.9 ug/ml
[2024-04-18 09:00] LABS: % Basophils 0.5 % (0-2); % Eosinophils 2.1 % (0-6); % Immature Granulocytes 0.6 % (0-0.5); % Lymphocytes 17.8 % (20.5-51.1); % Monocytes 7.9 % (1.7-9.3); % Neutrophils 71.1 % (42.2-75.2); Absolute Basophils 0.1 10^3/uL (0-0.2); Absolute Eosinophils 0.2 10^3/uL (0-0.7); Absolute Immature Granulocytes 0.1 10^3/uL (0-0.05); Absolute Lymphocytes 1.9 10^3/uL (1.2-3.4); Absolute Monocytes 0.9 10^3/uL (0.1-0.6); Absolute Neutrophils 7.7 10^3/uL (1.4-6.5); Hematocrit 28.4 % (39.0-52.0); Hemoglobin 9.6 g/dL (13.0-18.0); Mean Corp Hgb Conc. 33.8 g/dL (33.0-37.0); Mean Corpuscular Hgb 29.5 pg (27.0-31.0); Mean Corpuscular Volume 87.4 fL (80.0-94.0); Nucleated Red Blood Cells % 0 % (-); Platelet Count 417 10^3/uL (130-400); Red Blood Cell Count 3.25 10^6/uL (4.70-6.10); Red Cell Dist. Width 14.2 % (11.5-14.5); White Blood Cell Count 10.8 10^3/uL (4.8-10.8)
[2024-04-18 09:18] LABS: Blood Urea Nitrogen 18 mg/dl (9-20); Carbon Dioxide 29 mmol/L (22-30); Chloride 96 mmol/L (98-107); Estimated Creatinine Clearance 90 ml/min; Glucose 163 mg/dl (70-99); Potassium 4.1 mmol/L (3.5-5.1); Sodium 133 mmol/L (135-145); eGFR > 60.00
--- NOTE | 2024-04-18 09:26 | PHA.VAN.FU ---
Vancomycin Assessment / Plan
- Assessment
Renal Function: Stable (scr steady and BUN down to 18)
WBC's are: WNL
In the past 24 hrs, patient has been: Afebrile
- Assessment - Therapeutic Drug Monitoring
Random Level: 12.9 ( after 1500 mg dose given ~1200 04/17; level drawn~ 20 h after dose)
- Dosing Plan
Continue: dose by random level - vasc procedure planned for Sunday
Dosing by Level: Re-dose today (vanc 1500 mg)
Dosing Comments: follow renal function - due to vascular procedures
- Monitoring Plan
Random Level: 04/19 0600
- Follow Up
Pharmacy will continue to follow.
Vancomycin Follow UP
- -
Patient Age: 78
Patient Sex: Male
Vancomycin Day #: 14
Indication: Skin And Soft Tissue
Requesting Provider: Diane Hilton / Dr. Lombardi
Pertinent Antimicrobial Allergies:
no pertinent antibiotic allergies
Height / Weight:
Height 5 ft 9 in
Actual Weight 95.906 kg
IBW in k.7
Pertinent Past Medical History: DM 2
- Vital Signs / Lab Results
Temp Pulse Resp BP Pulse Ox
98.3 F 84 18 146/58 98
04/18/24 07:00 04/18/24 07:00 04/18/24 07:00 04/18/24 07:00 04/18/24 07:00
Lab Results - Hematology
04/16/24 04/18/24
08:39 08:15
WBC 18.4 H 10.8
Lab Results - Chemistry
04/16/24 04/16/24 04/18/24
08:39 11:18 08:15
BUN Cancelled 24 H 18
Creatinine Cancelled 0.8 0.8
Estimated Creat Clear Cancelled 89 90
Microbiology Results
04/15/24 19:21 Tissue Culture - Preliminary
Leg - Left Gram Stain - Preliminary
Therapeutic Drug Monitoring
Vancomycin Peak 27.6 ug/ml (18-26) H 04/10/24 22:26
Vancomycin Trough 21.4 ug/ml (5-20) H* 04/11/24 05:49
Random Vancomycin 12.9 ug/ml 04/18/24 08:15
[2024-04-18] MEDS: NOVOLOG FLEXPEN-MODERATE RESISTANCE 1 UNITS SC ×2 (09:43→12:54)
[2024-04-18] MEDS: NOVOLOG FLEXPEN 6 UNITS SC (09:43)
[2024-04-18] MEDS: ASPIR LOW (ENTERIC COATED) 81 MG PO (09:44)
[2024-04-18] MEDS: MIRALAX 17 GRAMS PO (09:44)
[2024-04-18] MEDS: APRESOLINE 10 MG PO ×3 (09:44→20:22)
[2024-04-18] MEDS: LASIX 40 MG PO (09:45)
[2024-04-18] MEDS: MAG-TAB SR 84 MG PO ×2 (09:45→20:22)
[2024-04-18] MEDS: FLOMAX 0.4 MG PO (09:45)
[2024-04-18] MEDS: COREG 25 MG PO ×2 (09:45→20:22)
[2024-04-18] MEDS: PROTONIX 40 MG PO (09:45)
[2024-04-18] MEDS: SENOKOT-S 1 TABLET PO ×2 (09:46→20:23)
[2024-04-18] MEDS: DAKIN'S SOLUTION 0.125% 1/4 STRENGTH 473 ML TOPICAL (09:48)
[2024-04-18] MEDS: LOTRIMIN 1% CREAM 1 APPLIC TOPICAL ×2 (09:49→20:23)
[2024-04-18] MEDS: DESENEX/MITRAZOL/ZEASORB 1 APPLIC TOPICAL ×2 (09:49→20:22)
[2024-04-18 11:00] VITALS: BP 125/55
--- NOTE | 2024-04-18 11:29 | WOUNDNOTE ---
L HEEL (LATERAL POSTERIOR)
--- NOTE | 2024-04-18 11:40 | WOUNDNOTE ---
WO RN note: JOHN Kulkarni gave patient pain med prior to L heel vac dressing change/leg wound dressing change. L heel pink with black areas and some yellow slough along lateral edge. R heel black eschar. Leg wounds curtain cleaner than on admission. s/p leg
OR debridement and LLE angioplasty. JOHN Kulkarni, [facility] JOHN Long and [facility] Shannon assisted with wound care, joseph care and turning patient (patient had 2 soft brown bowel movements). Sacral center ulcer improved however more masd noted around ulcer.
Calazime ointment and foam dressing applied. TruVue lite boots reapplied. [place] texted Radha Rodriguez, Vascular [employer] re: L heel wound appearance, asking if knee high [place] wrap to continue. Will await response.
[2024-04-18 12:49] LABS: Glucose - Point of Care 155 mg/dl (70-99)
[2024-04-18] MEDS: NOVOLOG FLEXPEN 7 UNITS SC ×2 (12:54→17:22)
[2024-04-18] MEDS: VANCOCIN 300 MG IV (12:58)
[2024-04-18] MEDS: VANCOCIN 300 ML IV (12:58)
[2024-04-18 15:00] VITALS: BP 124/43
--- NOTE | 2024-04-18 15:00 | W.PN.HOSP.TC ---
Today's Communication/Plan
-
Wound care including wound VAC to the left heel.
IV antibiotics.
Adjust insulin regimen.
For repeat intervention with attempt of revascularization of the right lower extremity early next week
Assessment / Plan
Assessment / Plan
Impression:
Bilateral lower extremity trophic wounds with dry gangrene and acute on chronic cellulitis
Suspect severe PAD.
Altered mental status secondary to toxic metabolic encephalopathy.
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
Mild hyponatremia sodium 133
Other conditions:
CAD with history of PCI unknown details.
CHF unknown EF
Anemia of chronic disease.
IDDM.
Essential hypertension.
BPH.
Obstructive sleep apnea not compliant with CPAP
Chronic ambulatory dysfunction likely multifactorial (PAD, diabetic neuropathy, cognitive status)
Plan:
Bilateral lower extremity wounds with dry gangrene at the heels.
Suspect severe PAD.
Arterial ultrasound
1. As above, examination was limited by the patient's inability to remain motionless secondary to pain. Ankle brachial indices were unobtainable.
2. Right toe brachial index of 0.16. Right common femoral waveform is multiphasic, but somewhat dampened suggesting probable component of inflow disease. There are monophasic dampened waveforms throughout the superficial femoral and popliteal
arteries. No high-grade focal stenosis is identified sonographically.
3. Left toe brachial index of 0.07. The left common femoral waveform is monophasic, consistent with inflow disease. There is moderate to severe stenosis of the mid left superficial femoral artery.
X-ray with osteoporosis.
CTA Overall moderate diffuse atherosclerotic disease, as detailed above. The right superficial femoral artery contains moderate calcification with focal near complete occlusion distally. In the right lower leg, there is only two-vessel proximal
run off with nonvisualization of the majority of the anterior tibial artery and cut off of the peroneal artery just above the ankle.
Wound culture with MRSA and ESBL Klebsiella sensitive to Zosyn.
Afebrile and hemodynamically stable. Noted with rising WBC.
Sepsis ruled out
Discussed with vascular surgery
Difficult situation: Left lower extremity severe wound with tendon exposed with concern for osteomyelitis. Limb with less likely solvable at this point. Right lower extremity with proving vascular insufficiency may require intervention. If any
decision should be made in terms of consolidating procedure with consideration of a left AKA and attempt of revascularization on the right.
Infectious disease input appreciated.
Wound culture with MRSA and Klebsiella ESBL
MRI of the left lower extremity negative for osteomyelitis
Antibiotics transition from vancomycin/Zosyn to vancomycin/ertapenem
Status post arteriogram on 04/15 with left lower extremity I&D and revascularization
Continue wound care including wound VAC to the left heel
Plan is for repeat arteriogram and right lower extremity revascularization attempt early next week
Altered mental status suspect toxic metabolic encephalopathy in the settings of acute infection.
Remains lethargic with no focal findings on exam.
Mental status reportedly improved with initiation of antibiotics.
Suspect underlying dementia vascular type.
CT head without acute abnormalities
Monitor closely.
CAD.
CHF preserved EF by history.
Essential hypertension
Current volume status compensated.
Check baseline ECG.
Echocardiogram preserved biventricular function with no significant valvular abnormalities
LDL 52
Continue current regimen including Coreg, Cardura, hydralazine
Continue aspirin
Continue furosemide with caution monitor renal function and volume status.
Mild hyponatremia volume loop diuretics.
Follow BMP.
IDDM with persistent hyperglycemia
Hemoglobin A1c 8.1
Continue Lantus 14 at bedtime. Add insulin aspart for AC.
Continue basal bolus protocol with serial Accu-Cheks
Carbohydrate controlled diet
BPH
Monitor for retention.
On Flomax
Obstructive sleep apnea
Reportedly not compliant with CPAP.
Admission ABG pH 7.4 on room air 99%
Continue CPAP at bedtime.
Full code.
DVT prophylaxis Lovenox
Anticipated Discharge: > 48 hours
Subjective/Interval History
-
Date of Service: April 18, 2024
Objective Data
-
Labs:
Laboratory Results
04/18/24
08:15
WBC 10.8
Hgb 9.6 L
Hct 28.4 L
Plt Count 417 H
Sodium 133 L
Potassium 4.1
Chloride 96 L
Carbon Dioxide 29
BUN 18
Creatinine 0.8
Glucose 163 H
Calcium 9.0
Vital Signs:
Vital Signs
Temp Pulse Resp BP Pulse Ox
98.3 F 84 18 146/58 98
04/18/24 07:00 04/18/24 07:00 04/18/24 07:00 04/18/24 07:00 04/18/24 07:00
I&O
04/17/24 04/18/24 04/19/24
06:59 06:59 06:59
Intake Total 500 / 500 600 / 600
Output Total 300 / 300
Balance 500 / 500 300 / 300
Physical Exam
-
General: Well Developed and No Apparent Distress
HEENT: Normocephalic, Atraumatic and Moist Mucous Membranes
Respiratory: Clear to Auscultation
Cardiac: Regular Rhythm and S1/S2; Negative Murmur, Rub or Gallop
GI: Soft, Nontender, Nondistended and Normal Bowel Sounds; Negative Organomegaly
Rectal: Deferred by Provider
Musculoskeletal: No Clubbing, No Cyanosis and No Edema
Skin: Negative Rash
Neuro: Nonfocal/Grossly Intact
[2024-04-18] MEDS: INVANZ 60 MG IV (15:31)
--- NOTE | 2024-04-18 16:09 | CM ---
CM reviewed chart, patient for repeat intervention early next week. Patient with wound vac, on IV antibiotics. Updates to LTC facility through [facility]. CM will continue to follow for all discharge planning needs.
Plan; return to [facility] when stable.
--- NOTE | 2024-04-18 16:36 | W.PN.VS ---
Today's Communication / Plan
-
See below.
Assessment/Plan
-
POD 3
Intravascular lithotripsy to calcified left external iliac artery stenosis
Balloon angioplasty and stenting of left external iliac artery stenosis
Intravascular lithotripsy to calcified left superficial femoral artery and above-knee popliteal artery stenoses
Balloon angioplasty and stenting of left superficial femoral artery and above-knee popliteal artery stenosis
Balloon angioplasty and stenting of right common iliac artery stenosis
Sharp excisional debridement of left heel wound including skin and subcutaneous tissue
Sharp excisional debridement of left pfeiffer wound including skin, subcutaneous tissue, muscle and fascia
Sharp excisional debridement of right pfeiffer and ankle wound
Plan:
-Continue VAC
-Wet-to-dry q shift BL leg dressings
-Plan for intervention on right side saturday 04/21
Subjective Data
-
Date of Service: April 18, 2024
Patient with no complaints. Denies nausea, vomiting, fever, and chills. Patient is resting and declines assessment of groins as he is comfortable in side laying position.
Objective Data
-
Vital Signs
Temp Pulse Resp BP Pulse Ox
98.3 F 84 18 146/58 98
04/18/24 07:00 04/18/24 07:00 04/18/24 07:00 04/18/24 07:00 04/18/24 07:00
Intake and Output
04/17/24 04/18/24 04/19/24
06:59 06:59 06:59
Intake Total 500 / 500 600 / 600
Output Total 300 / 300
Balance 500 / 500 300 / 300
Intake:
Oral fluids 500 / 500 600 / 600
Output:
Urine, Voided 300 / 300
Other:
How many times incontinent 2 4
SATURATED amount urine
Lab Results
04/18/24 08:15
04/18/24 08:15
Calcium 9.0 mg/dl (8.4-10.2) 04/18/24 08:15
Magnesium 1.7 mg/dl (1.6-2.3) 04/07/24 10:25
Total Bilirubin 0.7 mg/dl (0.2-1.3) 04/06/24 07:24
AST 23 U/L (17-59) 04/06/24 07:24
ALT 16 U/L (0-50) 04/06/24 07:24
Alkaline Phosphatase 78 U/L (38-126) 04/06/24 07:24
Total Protein 5.8 g/dl (6.3-8.2) L 04/06/24 07:24
Albumin 3.0 g/dl (3.5-5.0) L 04/06/24 07:24
Physical Exam
-
NAD
No tachypnea on room air
No tachycardia
Abdomen soft
BL calf dressing CDI, left heel wound vac CDI and holding suction
[2024-04-18 16:45] LABS: Glucose - Point of Care 241 mg/dl (70-99)
[2024-04-18] MEDS: LOVENOX 40 MG SC (17:21)
[2024-04-18] MEDS: NOVOLOG FLEXPEN-MODERATE RESISTANCE 3 UNITS SC (17:23)
[2024-04-18 19:30] VITALS: BP 112/52
[2024-04-18] MEDS: MELATONIN 5 MG PO (20:22)
[2024-04-18] MEDS: CARDURA 2 MG PO (20:22)
[2024-04-18 21:25] LABS: Glucose - Point of Care 103 mg/dl (70-99)
[2024-04-18 23:15] VITALS: BP 107/60
[2024-04-18] MEDS: LANTUS 0.2 UNITS SC (23:30)
[2024-04-19 03:44] VITALS: BP 136/57
[2024-04-19 04:33] VITALS: BMI 33.1
[2024-04-19 07:00] VITALS: BP 138/53
[2024-04-19 08:24] LABS: % Basophils 0.6 % (0-2); % Eosinophils 2.9 % (0-6); % Immature Granulocytes 0.7 % (0-0.5); % Lymphocytes 16.4 % (20.5-51.1); % Monocytes 7.4 % (1.7-9.3); Absolute Basophils 0.1 10^3/uL (0-0.2); Absolute Eosinophils 0.4 10^3/uL (0-0.7); Absolute Immature Granulocytes 0.1 10^3/uL (0-0.05); Absolute Lymphocytes 2.1 10^3/uL (1.2-3.4); Absolute Monocytes 0.9 10^3/uL (0.1-0.6); Absolute Neutrophils 9.1 10^3/uL (1.4-6.5); Hematocrit 29.2 % (39.0-52.0); Hemoglobin 9.8 g/dL (13.0-18.0); Mean Corp Hgb Conc. 33.6 g/dL (33.0-37.0); Mean Corpuscular Hgb 28.8 pg (27.0-31.0); Mean Corpuscular Volume 85.9 fL (80.0-94.0); Mean Platelet Volume 9.2 fL (7.4-10.4); Nucleated Red Blood Cells % 0 % (-); Platelet Count 445 10^3/uL (130-400); White Blood Cell Count 12.6 10^3/uL (4.8-10.8)
[2024-04-19 08:24] LABS: Glucose - Point of Care 176 mg/dl (70-99)
[2024-04-19 08:55] LABS: Blood Urea Nitrogen 20 mg/dl (9-20); Calcium 9.2 mg/dl (8.4-10.2); Carbon Dioxide 27 mmol/L (22-30); Chloride 95 mmol/L (98-107); Estimated Creatinine Clearance 92 ml/min; Glucose 175 mg/dl (70-99); Potassium 4.1 mmol/L (3.5-5.1); Sodium 132 mmol/L (135-145); eGFR > 60.00
[2024-04-19 09:03] LABS: Vancomycin Random 14.9 ug/ml
--- NOTE | 2024-04-19 09:14 | PHA.VAN.FU ---
Vancomycin Assessment / Plan
- Assessment
Renal Function: Stable
WBC's are: Trending Up
In the past 24 hrs, patient has been: Afebrile
Concomitant Antimicrobials: ertapenem
- Assessment - Therapeutic Drug Monitoring
Random Level: 14.9 after 1500 mg dose yesterday
- Dosing Plan
Continue: dose by random level (vascular procedure planned for Sunday)
Dosing by Level: Re-dose today (1250 mg)
Dosing Comments: will give 1250 mg today as vanc seems to be accumulating with daily 1500 mg
dose. ( random levels 1016=11.4; 04/18 =12.9; and 04/19 14.9
- Monitoring Plan
Random Level: am 04/20/24
- Follow Up
Pharmacy will continue to follow.
Vancomycin Follow UP
- -
Patient Age: 78
Patient Sex: Male
Vancomycin Day #: 15
Indication: Skin And Soft Tissue
Requesting Provider: Diane Hilton / Dr. Lombardi
Pertinent Antimicrobial Allergies:
no pertinent antibiotic allergies
Height / Weight:
Height 5 ft 9 in
Actual Weight 101.633 kg
IBW in k.7
Pertinent Past Medical History: DM 2
- Vital Signs / Lab Results
Temp Pulse Resp BP Pulse Ox
98.8 F 81 16 138/53 98
04/19/24 07:00 04/19/24 07:00 04/19/24 07:00 04/19/24 07:00 04/19/24 07:00
Lab Results - Hematology
04/18/24 04/19/24
08:15 07:09
WBC 10.8 12.6 H
Lab Results - Chemistry
04/16/24 04/16/24 04/18/24
08:39 11:18 08:15
BUN Cancelled 24 H 18
Creatinine Cancelled 0.8 0.8
Estimated Creat Clear Cancelled 89 90
04/19/24
07:09
BUN 20
Creatinine 0.8
Estimated Creat Clear 92
Microbiology Results
04/15/24 19:21 Tissue Culture - Final
Leg - Left S aureus-Methicillin Sensitive
Pseudomonas aeruginosa
Proteus mirabilis
Gram negative bacilli
Gram Stain - Final
Therapeutic Drug Monitoring
Vancomycin Peak 27.6 ug/ml (18-26) H 04/10/24 22:26
Vancomycin Trough 21.4 ug/ml (5-20) H* 04/11/24 05:49
Random Vancomycin 14.9 ug/ml 04/19/24 07:09
--- NOTE | 2024-04-19 09:58 | W.PN.HOSP.TC ---
Today's Communication/Plan
-
Switched to Merrem from Ertapenem on 04/19/24 (for pseudomonal coverage) as per new Cx
pending angio
Cont Vanco
Assessment / Plan
Assessment / Plan
Impression:
Bilateral lower extremity trophic wounds with dry gangrene and acute on chronic cellulitis
Suspect severe PAD.
Altered mental status secondary to toxic metabolic encephalopathy.
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
Mild hyponatremia sodium 133
Other conditions:
CAD with history of PCI unknown details.
CHF unknown EF
Anemia of chronic disease.
IDDM.
Essential hypertension.
BPH.
Obstructive sleep apnea not compliant with CPAP
Chronic ambulatory dysfunction likely multifactorial (PAD, diabetic neuropathy, cognitive status)
Plan:
Bilateral lower extremity wounds with dry gangrene at the heels.
Suspect severe PAD.
Arterial ultrasound
1. As above, examination was limited by the patient's inability to remain motionless secondary to pain. Ankle brachial indices were unobtainable.
2. Right toe brachial index of 0.16. Right common femoral waveform is multiphasic, but somewhat dampened suggesting probable component of inflow disease. There are monophasic dampened waveforms throughout the superficial femoral and popliteal
arteries. No high-grade focal stenosis is identified sonographically.
3. Left toe brachial index of 0.07. The left common femoral waveform is monophasic, consistent with inflow disease. There is moderate to severe stenosis of the mid left superficial femoral artery.
X-ray with osteoporosis.
CTA Overall moderate diffuse atherosclerotic disease, as detailed above. The right superficial femoral artery contains moderate calcification with focal near complete occlusion distally. In the right lower leg, there is only two-vessel proximal
run off with nonvisualization of the majority of the anterior tibial artery and cut off of the peroneal artery just above the ankle.
Wound culture with MRSA and ESBL, later postOP LLE Cx with Pseudomonas, MSSA, Proteus- Switched to Merrem from Ertapenem on 04/19/24 (for pseudomonal coverage)
Afebrile and hemodynamically stable. Noted with rising WBC.
Sepsis ruled out
Discussed with vascular surgery
Difficult situation: Left lower extremity severe wound with tendon exposed with concern for osteomyelitis. Limb with less likely solvable at this point. Right lower extremity with proving vascular insufficiency may require intervention. If any
decision should be made in terms of consolidating procedure with consideration of a left AKA and attempt of revascularization on the right.
Infectious disease input appreciated.
MRI of the left lower extremity negative for osteomyelitis
Antibiotics transition from vancomycin/Zosyn to vancomycin/ertapenem
Status post arteriogram on 04/15 with left lower extremity I&D and revascularization
Continue wound care including wound VAC to the left heel
Plan is for repeat arteriogram and right lower extremity revascularization attempt early next week
Altered mental status suspect toxic metabolic encephalopathy in the settings of acute infection.
resolved
Suspect underlying dementia vascular type.
CT head without acute abnormalities
Monitor closely.
CAD.
CHF preserved EF by history.
Essential hypertension
Current volume status compensated.
Check baseline ECG.
Echocardiogram preserved biventricular function with no significant valvular abnormalities
LDL 52
Continue current regimen including Coreg, Cardura, hydralazine
Continue aspirin
Continue furosemide with caution monitor renal function and volume status.
Mild hyponatremia volume loop diuretics.
Follow BMP.
IDDM with persistent hyperglycemia
Hemoglobin A1c 8.1
Continue Lantus 14 at bedtime. Add insulin aspart for AC.
Continue basal bolus protocol with serial Accu-Cheks
Carbohydrate controlled diet
BPH
Monitor for retention.
On Flomax
Obstructive sleep apnea
Reportedly not compliant with CPAP.
Admission ABG pH 7.4 on room air 99%
Continue CPAP at bedtime.
Full code.
DVT prophylaxis Lovenox
Anticipated Discharge: > 48 hours
Subjective/Interval History
-
Date of Service: April 19, 2024
Objective Data
-
Labs:
Laboratory Results
04/19/24
07:09
WBC 12.6 H
Hgb 9.8 L
Hct 29.2 L
Plt Count 445 H
Sodium 132 L
Potassium 4.1
Chloride 95 L
Carbon Dioxide 27
BUN 20
Creatinine 0.8
Glucose 175 H
Calcium 9.2
Vital Signs:
Vital Signs
Temp Pulse Resp BP Pulse Ox
98.8 F 81 16 138/53 98
04/19/24 07:00 04/19/24 07:00 04/19/24 07:00 04/19/24 07:00 04/19/24 07:00
I&O
04/18/24 04/19/24 04/20/24
06:59 06:59 06:59
Intake Total 600 / 600 1140 / 1140
Output Total 300 / 300
Balance 300 / 300 1140 / 1140
Review of Systems
-
History Source: Patient
All other systems: Reviewed and negative
Physical Exam
-
General: No Apparent Distress
HEENT: Normocephalic
Respiratory: Clear to Auscultation
GI: Soft, Nontender and Nondistended
Psych: Calm
[2024-04-19 11:00] VITALS: BP 142/58
[2024-04-19] MEDS: NOVOLOG FLEXPEN 7 UNITS SC ×2 (11:10→17:57)
[2024-04-19] MEDS: NOVOLOG FLEXPEN-MODERATE RESISTANCE 1 UNITS SC (11:11)
[2024-04-19] MEDS: PROTONIX 40 MG PO (11:12)
[2024-04-19] MEDS: LASIX 40 MG PO (11:12)
[2024-04-19] MEDS: ASPIR LOW (ENTERIC COATED) 81 MG PO (11:12)
[2024-04-19] MEDS: FLOMAX 0.4 MG PO (11:12)
[2024-04-19] MEDS: MIRALAX 17 GRAMS PO (11:13)
[2024-04-19] MEDS: LOTRIMIN 1% CREAM TOPICAL ×2 (11:13→15:06)
[2024-04-19] MEDS: APRESOLINE 10 MG PO ×3 (11:17→21:06)
[2024-04-19] MEDS: COREG 25 MG PO ×2 (11:17→21:06)
[2024-04-19] MEDS: MERREM 500 MG IV ×2 (11:18→21:22)
[2024-04-19] MEDS: STERILE WATER FOR INJECTION 10 ML IV ×2 (11:18→21:23)
[2024-04-19] MEDS: SENOKOT-S 1 TABLET PO ×2 (11:22→20:49)
[2024-04-19 11:47] LABS: Glucose - Point of Care 246 mg/dl (70-99)
[2024-04-19] MEDS: MAG-TAB SR 84 MG PO ×3 (11:54→20:50)
[2024-04-19] MEDS: DESENEX/MITRAZOL/ZEASORB 1 APPLIC TOPICAL ×2 (11:54→20:50)
[2024-04-19] MEDS: NOVOLOG FLEXPEN SC (14:35)
[2024-04-19] MEDS: NOVOLOG FLEXPEN-MODERATE RESISTANCE SC ×2 (14:43→14:55)
[2024-04-19] MEDS: DAKIN'S SOLUTION 0.125% 1/4 STRENGTH TOPICAL (14:55)
[2024-04-19 15:00] VITALS: BP 80/57
[2024-04-19] MEDS: MERREM IV (16:55)
[2024-04-19] MEDS: STERILE WATER FOR INJECTION IV (16:56)
[2024-04-19 17:34] LABS: Glucose - Point of Care 233 mg/dl (70-99)
[2024-04-19] MEDS: NOVOLOG FLEXPEN-MODERATE RESISTANCE 3 UNITS SC (17:57)
[2024-04-19] MEDS: LOVENOX SC ×2 (18:03→18:04)
--- NOTE | 2024-04-19 18:26 | PTCARENOTE ---
Assumed care from previous nurse. Pt will not allow this nurse to give antibiotics, change dressing, agreeable to some interventions and some medications but unable to redirect. Agitated, yelling at his nurse, grabbing her hand. Call dias is within
reach, pt rings renae. bed alarm in place. wound vac functioning renae. will cont to monitor.
[2024-04-19] MEDS: MELATONIN 5 MG PO (20:48)
[2024-04-19] MEDS: LOTRIMIN 1% CREAM 1 APPLIC TOPICAL (20:50)
[2024-04-19] MEDS: CARDURA 2 MG PO (21:06)
[2024-04-19 21:49] LABS: Glucose - Point of Care 231 mg/dl (70-99)
[2024-04-19] MEDS: LANTUS 0.2 UNITS SC (22:03)
[2024-04-19 23:15] VITALS: BP 136/80
[2024-04-20] MEDS: MERREM 500 MG IV ×4 (04:34→22:02)
[2024-04-20] MEDS: STERILE WATER FOR INJECTION 10 ML IV ×4 (04:34→22:02)
[2024-04-20 06:00] VITALS: BMI 31.2
[2024-04-20 06:11] LABS: Vancomycin Random 7.7 ug/ml
[2024-04-20 07:54] LABS: Glucose - Point of Care 173 mg/dl (70-99)
[2024-04-20 08:11] VITALS: BP 151/61
--- NOTE | 2024-04-20 08:18 | PHA.VAN.FU ---
Vancomycin Assessment / Plan
- Assessment
Renal Function: No New Labs Today
In the past 24 hrs, patient has been: Afebrile
Concomitant Antimicrobials: meropenem
- Assessment - Therapeutic Drug Monitoring
Random Level: 7.7 - pt refused yesterdays 1250 mg vanc dose
pts last vanc dose was 04/18 ~1300
- Dosing Plan
Continue: dose by level
Dosing by Level: Re-dose today (1500 mg x 1 dose)
- Monitoring Plan
Random Level: repeat random level AM 04/21
- Follow Up
Pharmacy will continue to follow.
Vancomycin Follow UP
- -
Patient Age: 78
Patient Sex: Male
Vancomycin Day #: 16
Indication: Skin And Soft Tissue
Requesting Provider: Diane Hilton / Dr. Lombardi
Pertinent Antimicrobial Allergies:
no pertinent antibiotic allergies
Height / Weight:
Height 5 ft 9 in
Actual Weight 95.889 kg
IBW in k.7
Pertinent Past Medical History: DM 2
- Vital Signs / Lab Results
Temp Pulse Resp BP Pulse Ox
99.2 F 84 18 151/61 95
04/20/24 08:11 04/20/24 08:11 04/20/24 08:11 04/20/24 08:11 04/20/24 08:11
Lab Results - Hematology
04/18/24 04/19/24
08:15 07:09
WBC 10.8 12.6 H
Lab Results - Chemistry
04/18/24 04/19/24
08:15 07:09
BUN 18 20
Creatinine 0.8 0.8
Estimated Creat Clear 90 92
Microbiology Results
04/15/24 19:21 Tissue Culture - Final
Leg - Left S aureus-Methicillin Sensitive
Pseudomonas aeruginosa
Proteus mirabilis
Gram negative bacilli
Gram Stain - Final
Therapeutic Drug Monitoring
Vancomycin Peak 27.6 ug/ml (18-26) H 04/10/24 22:26
Vancomycin Trough 21.4 ug/ml (5-20) H* 04/11/24 05:49
Random Vancomycin 7.7 ug/ml 04/20/24 05:26
[2024-04-20] MEDS: NOVOLOG FLEXPEN 7 UNITS SC ×3 (10:28→17:25)
[2024-04-20] MEDS: NOVOLOG FLEXPEN-MODERATE RESISTANCE 8 UNITS SC (10:28)
[2024-04-20] MEDS: FLOMAX 0.4 MG PO (10:29)
[2024-04-20] MEDS: MAG-TAB SR 84 MG PO (10:29)
[2024-04-20] MEDS: MIRALAX 17 GRAMS PO (10:29)
[2024-04-20] MEDS: PROTONIX 40 MG PO ×2 (10:30)
[2024-04-20] MEDS: ASPIR LOW (ENTERIC COATED) 81 MG PO ×2 (10:30)
[2024-04-20] MEDS: SENOKOT-S 1 TABLET PO ×2 (10:32→20:52)
[2024-04-20] MEDS: LASIX PO (10:35)
[2024-04-20] MEDS: LOTRIMIN 1% CREAM TOPICAL ×2 (10:35→20:44)
[2024-04-20] MEDS: COREG PO (10:36)
[2024-04-20] MEDS: DAKIN'S SOLUTION 0.125% 1/4 STRENGTH TOPICAL (10:37)
[2024-04-20] MEDS: APRESOLINE PO (10:37)
[2024-04-20] MEDS: DESENEX/MITRAZOL/ZEASORB 1 APPLIC TOPICAL ×2 (10:50→20:55)
[2024-04-20] MEDS: MERREM IV (10:51)
[2024-04-20] MEDS: STERILE WATER FOR INJECTION IV (10:51)
[2024-04-20] MEDS: VANCOCIN IV ×2 (10:51)
[2024-04-20 11:27] LABS: Glucose - Point of Care 268 mg/dl (70-99)
[2024-04-20] MEDS: VANCOCIN 300 ML IV (12:08)
[2024-04-20] MEDS: VANCOCIN 300 MG IV (12:08)
--- NOTE | 2024-04-20 13:00 | W.PN.HOSP.TC ---
Today's Communication/Plan
-
Finally agreed for new Abx
Dilaudid before dressing change
Assessment / Plan
Assessment / Plan
Impression:
Bilateral lower extremity trophic wounds with dry gangrene and acute on chronic cellulitis
Suspect severe PAD.
Altered mental status secondary to toxic metabolic encephalopathy.
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
Mild hyponatremia sodium 133
Other conditions:
CAD with history of PCI unknown details.
CHF unknown EF
Anemia of chronic disease.
IDDM.
Essential hypertension.
BPH.
Obstructive sleep apnea not compliant with CPAP
Chronic ambulatory dysfunction likely multifactorial (PAD, diabetic neuropathy, cognitive status)
Plan:
Bilateral lower extremity wounds with dry gangrene at the heels.
Suspect severe PAD.
Arterial ultrasound
1. As above, examination was limited by the patient's inability to remain motionless secondary to pain. Ankle brachial indices were unobtainable.
2. Right toe brachial index of 0.16. Right common femoral waveform is multiphasic, but somewhat dampened suggesting probable component of inflow disease. There are monophasic dampened waveforms throughout the superficial femoral and popliteal
arteries. No high-grade focal stenosis is identified sonographically.
3. Left toe brachial index of 0.07. The left common femoral waveform is monophasic, consistent with inflow disease. There is moderate to severe stenosis of the mid left superficial femoral artery.
X-ray with osteoporosis.
CTA Overall moderate diffuse atherosclerotic disease, as detailed above. The right superficial femoral artery contains moderate calcification with focal near complete occlusion distally. In the right lower leg, there is only two-vessel proximal
run off with nonvisualization of the majority of the anterior tibial artery and cut off of the peroneal artery just above the ankle.
Wound culture with MRSA and ESBL, later postOP LLE Cx with Pseudomonas, MSSA, Proteus- Switched to Merrem from Ertapenem on 04/19/24 (for pseudomonal coverage), however patient was declining Abx until the next day. Also declined dressing change 2/2
pain - added Dilaudid to be given before procedure. PAtient previously as per family had Hx of confusion after opioids, so using lowest dose.
Afebrile and hemodynamically stable. Noted with rising WBC.
Sepsis ruled out
Discussed with vascular surgery
Difficult situation: Left lower extremity severe wound with tendon exposed with concern for osteomyelitis. Limb with less likely solvable at this point. Right lower extremity with proving vascular insufficiency may require intervention. If any
decision should be made in terms of consolidating procedure with consideration of a left AKA and attempt of revascularization on the right.
Infectious disease input appreciated.
MRI of the left lower extremity negative for osteomyelitis
Antibiotics transition from vancomycin/Zosyn to vancomycin/ertapenem
Status post arteriogram on 04/15 with left lower extremity I&D and revascularization
Continue wound care including wound VAC to the left heel
Plan is for repeat arteriogram and right lower extremity revascularization attempt early next week
Altered mental status suspect toxic metabolic encephalopathy in the settings of acute infection.
resolved
Suspect underlying dementia vascular type.
CT head without acute abnormalities
Monitor closely.
CAD.
CHF preserved EF by history.
Essential hypertension
Current volume status compensated.
Check baseline ECG.
Echocardiogram preserved biventricular function with no significant valvular abnormalities
LDL 52
Continue current regimen including Coreg, Cardura, hydralazine
Continue aspirin
Continue furosemide with caution monitor renal function and volume status.
Mild hyponatremia volume loop diuretics.
Follow BMP.
IDDM with persistent hyperglycemia
Hemoglobin A1c 8.1
Continue Lantus 14 at bedtime. Add insulin aspart for AC.
Continue basal bolus protocol with serial Accu-Cheks
Carbohydrate controlled diet
BPH
Monitor for retention.
On Flomax
Obstructive sleep apnea
Reportedly not compliant with CPAP.
Admission ABG pH 7.4 on room air 99%
Continue CPAP at bedtime.
Full code.
DVT prophylaxis Lovenox
I have spent at least 38min reviewing chart, test results, communication with consultants and direct patient care
Anticipated Discharge: > 48 hours
Subjective/Interval History
-
Date of Service: April 20, 2024
Objective Data
-
Vital Signs:
Vital Signs
Temp Pulse Resp BP Pulse Ox
99.2 F 89 18 97/50 95
04/20/24 08:11 04/20/24 10:37 04/20/24 08:11 04/20/24 10:37 04/20/24 08:11
I&O
04/19/24 04/20/24 04/21/24
06:59 06:59 06:59
Intake Total 1140 / 1140 480 / 480
Balance 1140 / 1140 480 / 480
Review of Systems
-
Unable to obtain full review of systems at this time due to: Dementia
History Source: Patient
Physical Exam
-
General: Pain
Cardiac: Regular Rhythm
GI: Soft, Nontender and Nondistended
Skin: Warm
Neuro: Awake, Alert, Oriented and AO x 3
Psych: Apparent Dementia
[2024-04-20] MEDS: NOVOLOG FLEXPEN-MODERATE RESISTANCE 5 UNITS SC (13:28)
[2024-04-20 16:04] VITALS: BP 146/60
[2024-04-20 16:30] LABS: Glucose - Point of Care 311 mg/dl (70-99)
--- NOTE | 2024-04-20 16:41 | PTCARENOTE ---
Assumed care of pt from previous nurse. pt originally refused antibiotics. MD in and pt agreeable. Pt refusing dressing change despite daughter present attempting to help encourage and educate pt. Pt call dias is within reach, pt rings renae. will
cont to monitor.
[2024-04-20] MEDS: NOVOLOG FLEXPEN-MODERATE RESISTANCE 7 UNITS SC (17:25)
[2024-04-20] MEDS: APRESOLINE 10 MG PO ×2 (17:28→22:07)
[2024-04-20] MEDS: LOVENOX 40 MG SC (17:31)
--- NOTE | 2024-04-20 19:12 | VATNOTE ---
VAT received order for ML. Spoke to primary care RN, patient to be placed on superintendent terminal antibiotics however length of treatment unknown at this point. Also, unknown if LTC facility will accept ML vs PICC. Will continue to follow for appropriate
venous access. Primary Care RN does not anticipate discharge tomorrow, patient has sufficient access through the night.
[2024-04-20] MEDS: COREG 25 MG PO (20:52)
[2024-04-20 21:25] LABS: Glucose - Point of Care 308 mg/dl (70-99)
[2024-04-20] MEDS: MELATONIN 5 MG PO (22:03)
[2024-04-20] MEDS: LANTUS 0.2 UNITS SC (22:03)
[2024-04-20] MEDS: CARDURA 2 MG PO (22:08)
[2024-04-20 23:15] VITALS: BP 149/55
--- NOTE | 2024-04-20 23:43 | PTCARENOTE ---
Pt screamed and grabbed at PCT while changing the patient. Pt refused dressing change for b/l lower extremities. Pt was agreeable to IV Merrum but was screaming when it was pushed in the IV. Call dias within reach, will continue to monitor.
[2024-04-21] VITALS (11 sets, daily range): BP systolic 100–142; BP diastolic 44–81; BMI 31.8
[2024-04-21] MEDS: MERREM 500 MG IV ×4 (04:02→22:14)
[2024-04-21] MEDS: STERILE WATER FOR INJECTION 10 ML IV ×4 (04:03→22:14)
--- NOTE | 2024-04-21 07:40 | WOUNDNOTE ---
WOC RN note: Confirmed with Radha Rodriguez [facility] PHYSICIAN ASSISTANT PRIMARY CARE that the vascular team will change patient's L heel vac during vacular procedure today.
[2024-04-21 07:55] LABS: % Basophils 0.5 % (0-2); % Eosinophils 3.7 % (0-6); % Lymphocytes 14.9 % (20.5-51.1); % Monocytes 8.3 % (1.7-9.3); % Neutrophils 71.6 % (42.2-75.2); Absolute Basophils 0.1 10^3/uL (0-0.2); Absolute Eosinophils 0.5 10^3/uL (0-0.7); Absolute Immature Granulocytes 0.1 10^3/uL (0-0.05); Absolute Monocytes 1.1 10^3/uL (0.1-0.6); Absolute Neutrophils 9.8 10^3/uL (1.4-6.5); Hematocrit 27.7 % (39.0-52.0); Hemoglobin 9.3 g/dL (13.0-18.0); Mean Corp Hgb Conc. 33.6 g/dL (33.0-37.0); Mean Corpuscular Hgb 29.1 pg (27.0-31.0); Mean Corpuscular Volume 86.6 fL (80.0-94.0); Mean Platelet Volume 9.2 fL (7.4-10.4); Nucleated Red Blood Cells % 0 % (-); Platelet Count 426 10^3/uL (130-400); Red Cell Dist. Width 14.4 % (11.5-14.5); White Blood Cell Count 13.7 10^3/uL (4.8-10.8)
[2024-04-21 08:10] LABS: Vancomycin Random 10.2 ug/ml
[2024-04-21 08:29] LABS: ALT (SGPT) 16 U/L (0-50); AST (SGOT) 18 U/L (17-59); Albumin 2.8 g/dl (3.5-5.0); Alkaline Phosphatase 71 U/L (38-126); Blood Urea Nitrogen 17 mg/dl (9-20); Calcium 8.8 mg/dl (8.4-10.2); Carbon Dioxide 28 mmol/L (22-30); Chloride 96 mmol/L (98-107); Estimated Creatinine Clearance 91 ml/min; Glucose 157 mg/dl (70-99); Sodium 134 mmol/L (135-145); Total Bilirubin 0.4 mg/dl (0.2-1.3); Total Protein 5.5 g/dl (6.3-8.2); eGFR > 60.00
[2024-04-21 09:05] LABS: Glucose - Point of Care 162 mg/dl (70-99)
[2024-04-21] MEDS: NOVOLOG FLEXPEN SC ×3 (09:16→16:06)
[2024-04-21] MEDS: NOVOLOG FLEXPEN-MODERATE RESISTANCE 1 UNITS SC (09:17)
[2024-04-21] MEDS: DAKIN'S SOLUTION 0.125% 1/4 STRENGTH 473 ML TOPICAL (09:18)
[2024-04-21] MEDS: DESENEX/MITRAZOL/ZEASORB 1 APPLIC TOPICAL ×2 (09:19→22:09)
[2024-04-21] MEDS: LASIX 40 MG PO (09:21)
[2024-04-21] MEDS: LOTRIMIN 1% CREAM 1 APPLIC TOPICAL ×2 (09:21→22:03)
[2024-04-21] MEDS: SENOKOT-S 1 TABLET PO ×2 (09:21→22:02)
[2024-04-21] MEDS: MAG-TAB SR 84 MG PO ×2 (09:21→22:03)
[2024-04-21] MEDS: FLOMAX 0.4 MG PO (09:21)
[2024-04-21] MEDS: COREG 25 MG PO (09:22)
[2024-04-21] MEDS: APRESOLINE 10 MG PO ×2 (09:22→15:51)
[2024-04-21] MEDS: MIRALAX PO (09:23)
--- NOTE | 2024-04-21 09:42 | PHA.VAN.FU ---
Vancomycin Assessment / Plan
- Assessment
Renal Function: Stable
WBC's are: Trending Up
In the past 24 hrs, patient has been: Afebrile
Concomitant Antimicrobials: meropenem
- Assessment - Therapeutic Drug Monitoring
Random Level: 10.2 (07:28) - after 1500 mg dose yesterday ~1200
- Dosing Plan
Continue: dose by random levels
Dosing by Level: Re-dose today (1500 mg x 1 today)
Dosing Comments: dosing by levels as pt has been intermittently refusing antibiotics,
Plan for repeat arteriogram early this week
- Monitoring Plan
Random Level: 04/22/24 0600
- Follow Up
Pharmacy will continue to follow.
Vancomycin Follow UP
- -
Patient Age: 78
Patient Sex: Male
Vancomycin Day #: 17
Indication: Skin And Soft Tissue
Requesting Provider: Diane Hilton / Dr. Lombardi
Pertinent Antimicrobial Allergies:
no pertinent antibiotic allergies
Height / Weight:
Height 5 ft 9 in
Actual Weight 97.721 kg
IBW in k.7
Pertinent Past Medical History: DM 2
- Vital Signs / Lab Results
Temp Pulse Resp BP Pulse Ox
99.8 F 90 20 149/55 94
04/20/24 23:15 04/20/24 23:15 04/20/24 23:15 04/20/24 23:15 04/20/24 23:15
Lab Results - Hematology
04/19/24 04/21/24
07:09 07:28
WBC 12.6 H 13.7 H
Lab Results - Chemistry
04/19/24 04/21/24
07:09 07:28
BUN 20 17
Creatinine 0.8 0.8
Estimated Creat Clear 92 91
Albumin 2.8 L
Microbiology Results
04/15/24 19:21 Tissue Culture - Final
Leg - Left S aureus-Methicillin Sensitive
Pseudomonas aeruginosa
Proteus mirabilis
Gram negative bacilli
Gram Stain - Final
Therapeutic Drug Monitoring
Vancomycin Peak 27.6 ug/ml (18-26) H 04/10/24 22:26
Vancomycin Trough 21.4 ug/ml (5-20) H* 04/11/24 05:49
Random Vancomycin 10.2 ug/ml 04/21/24 07:28
[2024-04-21] MEDS: VANCOCIN 300 ML IV (10:14)
[2024-04-21] MEDS: VANCOCIN 300 MG IV (10:14)
--- NOTE | 2024-04-21 11:12 | CM ---
Reviewed the chart notes. Anticipate vascular taking patient the the OR for additional intervention of the RLE. CM continues to be available to patient/family and is monitoring medical plan for needs at discharge.
Plan: Discharge back to [facility] once medically stable.
[2024-04-21 11:27] LABS: Glucose - Point of Care 168 mg/dl (70-99)
--- NOTE | 2024-04-21 11:41 | W.PN.ID1 ---
Date of Service
Date of Service: April 21, 2024
Today's Communication
Continue meropenem and Vancomycin.
Assessment / Plan
# Acute on chronic extensive ischemic wounds LLE> RLE.
LLE tendon exposed.
# Severe PAD
# Leukocytosis trending up
# DM
- 04/15/24 s/p LLE and RLE endovasular intervention
s/p debridement of left heel pfeiffer to fascia and right pfeiffer and ankle wounds.
- OR left tissue cx MSSA, Pseudomonas, Proteus, GNR
- RLE ankle surface wound swab MRSA and ESBL-Klebsiella isolated from wound.
- s/p 4 days Zosyn -> 8days Ertapenem -> meropenem.
-Continue meropenem (d4)
- Continue Vancomycin (d17)
- For RLE vascular intervention today.
- Trend wbc.
# Additional Past Medical History:
DM2
HTN
HLD
PAD
BLE lymphedema
Chronic BLE wounds follows at [facility]
CAD s/p stent
CHF
FRANCESCO
BPH
Chief Complaint
-: Other (Ischemic wounds)
Subjective / Review of Systems
Daughter at bedside.
Pt c/o pain.
Vital Signs / Physical Exam
Vital Signs
Vital Signs
Temp Pulse Resp BP Pulse Ox
99.8 F 90 20 149/55 94
04/20/24 23:15 04/20/24 23:15 04/20/24 23:15 04/20/24 23:15 04/20/24 23:15
Physical Exam
Constitutional: No Acute Distress
Pulmonary: Clear
Gastrointestinal: Soft, Non Tender and Non Distended
Wound: Other (Reviewed wound photos: LLE wounds/heel improved; Right ankle proximal wounds with green tinged fibrinous slough)
Objective Data
Lab Data
Lab Results
04/21/24 07:28
04/21/24 07:28
Estimated Creat Clear 91 ml/min 04/21/24 07:28
Lactic Acid 1.1 mmol/L (0.7-2.0) 04/04/24 16:51
Total Bilirubin 0.4 mg/dl (0.2-1.3) 04/21/24 07:28
AST 18 U/L (17-59) 04/21/24 07:28
ALT 16 U/L (0-50) 04/21/24 07:28
Alkaline Phosphatase 71 U/L (38-126) 04/21/24 07:28
Most recent labs reviewed.
Micro Results:
04/15/24 19:21 Tissue Culture - Final
Leg - Left S aureus-Methicillin Sensitive
Pseudomonas aeruginosa
Proteus mirabilis
Gram negative bacilli
Gram Stain - Final
04/04/24 21:49 Blood Culture - Final
Blood/Venous No Growth - Final Report
04/04/24 19:45 Blood Culture - Final
Blood/Venous No Growth - Final Report
04/04/24 19:45 Wound Culture - Final
Foot - Right Staph aureus MRSA
Klebsiella pneumoniae-ESBL
Gram Stain - Final
04/04/24 19:46 Urine Culture - Final
Urine NO GROWTH
04/05/24 04:34 MRSA Screen - Final
Nose Staph aureus MRSA
04/05/24 15:49 Influenza Types A & B (JEANNIE) - Final
Nasal Swab Negative for Influenza A & B, NAAT
Negative results must be combined with clinical observations
and patient history.
Nucleic Acid Amplification test (NAAT)performed on the
[employer] platform.
04/10/24 MRI LLE wo: No MRI evidence for acute osteomyelitis in the left hindfoot or midfoot. Multiple wounds in the distal left lower leg and ankle.
04/09/24 CTA: Overall moderate diffuse atherosclerotic disease, as detailed above. The right superficial femoral artery contains moderate calcification with focal near complete occlusion distally. In the right lower leg, there is only two-vessel
proximal run off with nonvisualization of the majority of the anterior tibial artery and cut off of the peroneal artery just above the ankle.
[2024-04-21] MEDS: NOVOLOG FLEXPEN-MODERATE RESISTANCE SC ×2 (11:51→16:07)
--- NOTE | 2024-04-21 14:11 | PTCARENOTE ---
Patient and daughter have brought to our attention that patients birthdate is actually 1945. For the past 32 years, all of his legal documents, including SS card, medicare, pension, ect have reflected the error date of 1945. Patient
typically states that his birthdate is 1945 so that it matches what is in our system. Occassionally he says 1945. Family instructed to make efforts to correct legal documents. In the meantime, his birthdate day of the month will have this
discrepancy.
--- NOTE | 2024-04-21 15:46 | W.PN.HOSP.TC ---
Today's Communication/Plan
-
Vascular evaluation for the right lower extremity
Continue wound care
Continue IV antibiotics
PICC line
N.p.o.
Serial Accu-Cheks
Assessment / Plan
Assessment / Plan
Impression:
Bilateral lower extremity trophic wounds with dry gangrene and acute on chronic cellulitis
Suspect severe PAD.
Altered mental status secondary to toxic metabolic encephalopathy.
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
Mild hyponatremia sodium 133
Other conditions:
CAD with history of PCI unknown details.
CHF unknown EF
Anemia of chronic disease.
IDDM.
Essential hypertension.
BPH.
Obstructive sleep apnea not compliant with CPAP
Chronic ambulatory dysfunction likely multifactorial (PAD, diabetic neuropathy, cognitive status)
Plan:
Bilateral lower extremity wounds with dry gangrene at the heels.
Suspect severe PAD.
Arterial ultrasound
1. As above, examination was limited by the patient's inability to remain motionless secondary to pain. Ankle brachial indices were unobtainable.
2. Right toe brachial index of 0.16. Right common femoral waveform is multiphasic, but somewhat dampened suggesting probable component of inflow disease. There are monophasic dampened waveforms throughout the superficial femoral and popliteal
arteries. No high-grade focal stenosis is identified sonographically.
3. Left toe brachial index of 0.07. The left common femoral waveform is monophasic, consistent with inflow disease. There is moderate to severe stenosis of the mid left superficial femoral artery.
X-ray with osteoporosis.
CTA Overall moderate diffuse atherosclerotic disease, as detailed above. The right superficial femoral artery contains moderate calcification with focal near complete occlusion distally. In the right lower leg, there is only two-vessel proximal
run off with nonvisualization of the majority of the anterior tibial artery and cut off of the peroneal artery just above the ankle.
Wound culture with MRSA and ESBL, later postOP LLE Cx with Pseudomonas, MSSA, Proteus- Switched to Merrem from Ertapenem on 04/19/24 (for pseudomonal coverage), however patient was declining Abx until the next day. Also declined dressing change /
pain - added Dilaudid to be given before procedure. PAtient previously as per family had Hx of confusion after opioids, so using lowest dose.
Afebrile and hemodynamically stable. Noted with rising WBC.
Sepsis ruled out
Discussed with vascular surgery
Difficult situation: Left lower extremity severe wound with tendon exposed with concern for osteomyelitis. Limb with less likely solvable at this point. Right lower extremity with proving vascular insufficiency may require intervention. If any
decision should be made in terms of consolidating procedure with consideration of a left AKA and attempt of revascularization on the right.
Infectious disease input appreciated.
MRI of the left lower extremity negative for osteomyelitis
Antibiotics transition from vancomycin/Zosyn to vancomycin/ertapenem
Status post arteriogram on 04/15 with left lower extremity I&D and revascularization
Continue wound care including wound VAC to the left heel
Plan is for repeat arteriogram and right lower extremity revascularization attempt early next week
Altered mental status suspect toxic metabolic encephalopathy in the settings of acute infection.
resolved
Suspect underlying dementia vascular type.
CT head without acute abnormalities
Monitor closely.
CAD.
CHF preserved EF by history.
Essential hypertension
Current volume status compensated.
Check baseline ECG.
Echocardiogram preserved biventricular function with no significant valvular abnormalities
LDL 52
Continue current regimen including Coreg, Cardura, hydralazine
Continue aspirin
Continue furosemide with caution monitor renal function and volume status.
Mild hyponatremia volume loop diuretics.
Follow BMP.
IDDM with persistent hyperglycemia
Hemoglobin A1c 8.1
Continue Lantus 14 at bedtime. Add insulin aspart for AC.
Continue basal bolus protocol with serial Accu-Cheks
Carbohydrate controlled diet
BPH
Monitor for retention.
On Flomax
Obstructive sleep apnea
Reportedly not compliant with CPAP.
Admission ABG pH 7.4 on room air 99%
Continue CPAP at bedtime.
Full code.
DVT prophylaxis Lovenox
I have spent at least 38min reviewing chart, test results, communication with consultants and direct patient care
Anticipated Discharge: > 48 hours
Subjective/Interval History
-
Date of Service: April 21, 2024
Objective Data
-
Labs:
Laboratory Results
04/21/24
07:28
WBC 13.7 H
Hgb 9.3 L
Hct 27.7 L
Plt Count 426 H
Sodium 134 L
Potassium 4.0
Chloride 96 L
Carbon Dioxide 28
BUN 17
Creatinine 0.8
Glucose 157 H
Calcium 8.8
Total Bilirubin 0.4
AST 18
ALT 16
Alkaline Phosphatase 71
Vital Signs:
Vital Signs
Temp Pulse Resp BP Pulse Ox
98.2 F 84 16 121/50 95
04/21/24 07:00 04/21/24 07:00 04/21/24 07:00 04/21/24 07:00 04/21/24 07:00
I&O
04/20/24 04/21/24 04/22/24
06:59 06:59 06:59
Intake Total 480 / 480 780 / 780
Balance 480 / 480 780 / 780
Physical Exam
-
General: Pain
Cardiac: Regular Rhythm
GI: Soft, Nontender and Nondistended
Skin: Warm
Neuro: Awake, Alert, Oriented and AO x 3
Psych: Apparent Dementia
[2024-04-21 16:02] LABS: Glucose - Point of Care 159 mg/dl (70-99)
[2024-04-21 16:38] LABS: Magnesium 1.7 mg/dl (1.6-2.3)
[2024-04-21 19:14] LABS: Glucose - Point of Care 172 mg/dl (70-99)
--- NOTE | 2024-04-21 20:00 | W.SUR.POST ---
Surgical Immediate Post Op
Note
Pre Op Diagnosis: PAD/nonhealing wounds
Post Op Diagnosis: Same
Procedure Performed: Right lower extremity arteriogram, right SFA pop IV L and stent placement. Bilateral lower leg wound debridement
Primary Surgeon: Yana
Secondary Surgeons: MD Florian PGY-8
Anesthesia: General
Estimated Blood Loss: See anesthesia sheet
Fluids: See anesthesia flowsheet
Drains/Shunts: None
Specimens/Cultures: Yes
Doppler/Duplex/Angio (Y/N): Y
Complications: None
Operative Findings: Bone exposed at heel
[2024-04-21] MEDS: SUBLIMAZE 25 MCG IV (20:39)
[2024-04-21 21:18] LABS: Glucose - Point of Care 214 mg/dl (70-99)
[2024-04-21] MEDS: APRESOLINE PO (22:02)
[2024-04-21] MEDS: CARDURA PO (22:02)
[2024-04-21] MEDS: COREG PO (22:03)
[2024-04-21] MEDS: LANTUS 0.2 UNITS SC (22:03)
[2024-04-21] MEDS: MELATONIN 5 MG PO (22:05)
[2024-04-21] MEDS: NSS 1000 IV (22:10)
[2024-04-21] MEDS: LOVENOX 40 MG SC (22:17)
--- NOTE | 2024-04-21 23:41 | PTCARENOTE ---
received pt from pacu follows commands and is mostly cooperative- 1-1 at bedside and instructed to maintain restrictions- bilateral PT pus with Doppler no hematoma at site- pt sleeps when left undisturbed-
[2024-04-22] VITALS (8 sets, daily range): BP systolic 119–138; BP diastolic 45–71; O2SAT 97
[2024-04-22] MEDS: STERILE WATER FOR INJECTION 10 ML IV ×4 (03:33→21:22)
[2024-04-22] MEDS: MERREM 500 MG IV ×4 (03:33→21:21)
[2024-04-22] MEDS: FLUSH (NSS) 3 FLUSH IV (03:35)
[2024-04-22 04:30] LABS: Hematocrit 27.2 % (39.0-52.0); Hemoglobin 9.2 g/dL (13.0-18.0); Mean Corp Hgb Conc. 33.8 g/dL (33.0-37.0); Mean Corpuscular Hgb 30.1 pg (27.0-31.0); Mean Corpuscular Volume 88.9 fL (80.0-94.0); Mean Platelet Volume 9.2 fL (7.4-10.4); Platelet Count 406 10^3/uL (130-400); Red Blood Cell Count 3.06 10^6/uL (4.70-6.10); Red Cell Dist. Width 14.4 % (11.5-14.5); White Blood Cell Count 16.3 10^3/uL (4.8-10.8)
[2024-04-22 04:47] LABS: Blood Urea Nitrogen 19 mg/dl (9-20); Calcium 8.7 mg/dl (8.4-10.2); Carbon Dioxide 26 mmol/L (22-30); Chloride 98 mmol/L (98-107); Estimated Creatinine Clearance 104 ml/min; Glucose 241 mg/dl (70-99); Potassium 4.2 mmol/L (3.5-5.1); Sodium 135 mmol/L (135-145); eGFR > 60.00
[2024-04-22 04:52] LABS: Vancomycin Random 12.4 ug/ml
[2024-04-22] MEDS: DILAUDID 0.25 MG IV (05:59)
--- NOTE | 2024-04-22 08:04 | OR.RPT ---
Operative Report
Operative Report
Date of Operation: 04/21/2024
Pre Op Diagnosis: Chronic limb threatening ischemia with nonhealing right lower extremity wounds
Post Op Diagnosis: Chronic limb threatening ischemia with nonhealing right lower extremity wounds
Procedure:
1.) Intravascular lithotripsy to right superficial femoral artery and popliteal artery calcified stenoses (6 mm x 80 mm E8 shockwave balloon)
2.) Balloon angioplasty and drug-eluting stenting of right popliteal artery and superficial femoral artery (overlapping 6 mm x 140 mm Zilver PTX stents (x 2))
3.) Sharp excisional debridement of right heel including skin and subcutaneous tissue (wound dimensions 3 cm x 3 cm)
4.) Sharp excisional debridement of right Achilles wound including skin, subcutaneous tissue and tendon (wound dimensions 6 cm x 3 cm)
5.) Sharp excisional debridement of left heel wound including skin, subcutaneous tissue and bone (wound dimensions 6 cm x 4 cm)
6.) Ultrasound-guided percutaneous access to the left common femoral artery
Surgeon: Emerson Millan III, MD
Fiberglass Quality Technician: Elana Du MD PGY-8
Anesthesia: Sedation with local
Fluoroscopy:
39.9 min
319 mGy
74.30 Gy.cm2
Complications: None
Estimated Blood Loss: 50 cc
History and Indications for Procedure: 78-year-old male with limb threatening ischemia manifested by nonhealing bilateral lower extremity wounds.
Procedure in Detail: Tristan Dumont was correctly identified and placed supine on the operating table. After adequate induction of anesthesia the bilateral groins and bilateral lower extremities below the knee were prepped and draped in the usual
sterile fashion. A timeout was performed with the nursing and anesthesia staff confirming the patient's identity as well as the nature and laterality of the procedure.
The left common femoral artery was identified under ultrasound guidance. The artery was patent and calcified plaque was identified. The superior and inferior aspects of the femoral head were identified with radiographic guidance and marked at the
skin level. The proposed puncture site was infiltrated with local anesthesia. We saved a copy of the ultrasound image to the medical record. Under ultrasound guidance we accessed the left common femoral artery with a micropuncture needle and upsized
to a 5 Fr sheath over a [employer] wire. The wire and a Shepherds hook flush catheter were advanced into the distal abdominal aorta and a diagnostic aorto-biiliac arteriogram was performed:
AORTO-ILIAC ARTERIOGRAM:
Aorta: Heavily calcified abdominal aorta but patent
Right common iliac artery: Patent stent with no stenosis identified
Right external iliac artery: Peripherally calcified, patent
Left common iliac artery: Patent
Left external iliac artery: Patent stent with no stenosis identified
Under roadmap guidance using a Glidewire and the Shepherds hook catheter we selected the right common iliac artery and then the external iliac artery. A catheter was tracked up and over the aortic bifurcation and placed in the distal external iliac
artery. A diagnostic right lower extremity arteriogram was then performed which demonstrated the following:
RIGHT LOWER EXTREMITY:
Common femoral artery: Patent with no significant stenosis identified
Profunda femoral artery: Patent with no significant stenosis identified
Superficial femoral artery: Patent. Heavily calcified. Scattered high-grade stenoses identified in the mid to distal SFA.
Popliteal artery: Heavily calcified. Focal occlusion behind the knee with calcified plaque
Anterior tibial artery: Occluded with no distal reconstitution
Tibioperoneal trunk: Patent
Peroneal artery: Patent to the ankle
Posterior tibial artery: Patent. Crosses the foot to form plantar branches. Small vessel disease is identified in the foot
ENDOVASCULAR INTERVENTION: Systemic heparin was administered. Exchanged out for a 6 Fr 45 cm sheath over a Storq wire. Selected the superficial femoral artery under roadmap guidance with Quickcross catheter and glidewire. The SFA stenoses were
crossed with a Quickcross and Glidewire. The focal popliteal occlusion with calcified plaque was crossed successfully with the Quickcross and a Glidewire. The wire and catheter were advanced into the below-knee popliteal artery and subtraction
angio confirmed proper position in the true lumen. Exchanged out for a [employer] slam 0.014 wire. A 4 mm angioplasty balloon was placed across the calcified plaque in the popliteal artery behind the knee under roadmap guidance. The balloon was inflated
to nominal pressure and then deflated and removed over the wire. Subsequent arteriogram demonstrated an improved result. Due to the heavily calcified nature of the arterial disease and in an effort to modify the calcium to achieve maximum luminal
gain with endovascular intervention I elected to proceed with intravascular lithotripsy. A 6 mm x 80 mm E8 shockwave balloon was positioned in the popliteal artery behind the knee across the calcified plaque under roadmap guidance. Alternating
rounds of lithotripsy pulse delivery at sub-nominal pressure and angioplasty at nominal pressure was performed across the calcified stenoses. In between rounds of pulse delivery and angioplasty the balloon was deflated and repositioned under roadmap
guidance. The entire superficial femoral artery and popliteal artery was treated with the IVL catheter. All 400 pulses were delivered. Subsequent arteriogram demonstrated a significantly improved result but areas of residual calcified stenosis
remained in the popliteal artery and superficial femoral artery.
I then brought into position overlapping 6 mm x 140 mm Zilver PTX stents. Each were positioned individually in the desired location under roadmap guidance. The initial stent was placed in the popliteal artery behind the knee extending to the
above-knee popliteal artery. The more proximal stent was extended to the mid SFA. A 6 mm angioplasty balloon was used to profile the entire length of the stents.
COMPLETION ARTERIOGRAM: Significantly improved result compared to pretreatment. Widely patent superficial femoral artery and popliteal artery with good flow. Patent stents with no significant residual stenosis identified. Tibial outflow via the
peroneal and posterior tibial arteries was improved compared to pretreatment.
Satisfied with this result we concluded the procedure. The sheath tip was pulled back into the left external iliac artery. Protamine was administered. The sheath was pulled and direct manual pressure was held over the puncture site. Hemostasis
was achieved. A sterile dressing was applied..
We then focused our attention on debridement of the lower extremity wounds as follows:
Using a scalpel, scissors and forceps, sharp excisional debridement was performed on the left heel wound. Skin and subcutaneous fat were sharply debrided from the wound. No purulence was identified. Necrotic tissue was debrided down to calcaneus.
A bone biopsy was performed and sent to microbiology for culture. Debridement of the ischemic tissue continued to healthy bleeding subcutaneous tissue. The wound dimensions debrided were 6 cm x 3 cm.
Using a scalpel, scissors and forceps, sharp excisional debridement was performed on the right heel wound. Necrotic eschar as well as skin and subcutaneous tissue were sharply debrided from the wound. The tissue was necrotic in appearance. No
purulence was identified. Debridement of the ischemic tissue continued to healthy bleeding skin and subcutaneous tissue. The wound dimensions debrided were 3 cm x 3 cm.
Using a scalpel, scissors and forceps, sharp excisional debridement was performed on the right Achilles wound. Fibrinous exudate and necrotic dessicated portions of the Achilles tendon were sharply debrided. The Achilles tendon was clearly exposed
and this wound bed. No purulence was identified. The wound dimensions debrided were 6 cm x 3 cm.
The wounds were all then irrigated with saline. Hemostasis was achieved. Sterile dressings were applied bilaterally.
The patient tolerated the procedure well and was taken to the PACU in stable condition
Attestation: I was present and responsible for the entire procedure.
Signed:
Emerson Millan III, MD
[facility]
[phone] (ewml)
[2024-04-22 08:22] LABS: Glucose - Point of Care 268 mg/dl (70-99)
[2024-04-22] MEDS: MIRALAX 17 GRAMS PO (08:23)
[2024-04-22] MEDS: MAG-TAB SR 84 MG PO ×2 (08:24→20:13)
[2024-04-22] MEDS: NOVOLOG FLEXPEN-MODERATE RESISTANCE 5 UNITS SC (08:24)
[2024-04-22] MEDS: NOVOLOG FLEXPEN 7 UNITS SC ×3 (08:24→17:11)
[2024-04-22] MEDS: ASPIR LOW (ENTERIC COATED) 81 MG PO (08:24)
[2024-04-22] MEDS: LASIX 40 MG PO (08:24)
[2024-04-22] MEDS: PROTONIX 40 MG PO (08:25)
[2024-04-22] MEDS: COREG 25 MG PO ×2 (08:25→20:13)
[2024-04-22] MEDS: DESENEX/MITRAZOL/ZEASORB 1 APPLIC TOPICAL ×2 (08:25→20:13)
[2024-04-22] MEDS: APRESOLINE 10 MG PO ×3 (08:25→21:17)
[2024-04-22] MEDS: FLOMAX 0.4 MG PO (08:25)
[2024-04-22] MEDS: LOTRIMIN 1% CREAM 1 APPLIC TOPICAL ×2 (08:26→20:12)
[2024-04-22] MEDS: PLAVIX 300 MG PO (08:26)
[2024-04-22] MEDS: SENOKOT-S 1 TABLET PO ×2 (08:26→20:13)
--- NOTE | 2024-04-22 10:26 | PHA.VAN.FU ---
Vancomycin Assessment / Plan
- Assessment
Renal Function: Stable
WBC's are: Trending Up
In the past 24 hrs, patient has been: Afebrile
Concomitant Antimicrobials: meropenem
- Assessment - Therapeutic Drug Monitoring
Random Level: 12.4 - drawn ~18H after previous dose of 1500mg
Levels relatively stable on Vanc 1500mg once daily; however, patient may have some additional clearance from today's level by 24H.
BUN slightly elevated from around time of peak/trough (04/11) through 04/16 - returned to WNL and SCR with slight downward trend since that time.
Vanco clearance has wavered during this admission and unclear slight elevations in BUN/SCR may have impacted clearance.
- Dosing Plan
Adjust Regimen to: Vanc 1500mg Q24H - first dose now then 0600
Dosing Comments: will tentatively start scheduled dosing for Q24H
- Monitoring Plan
No level(s) ordered at this time: will consider levels every 2-3 days
Tentatively scheduling dosing but would continue to follow levels closely to assess appropriateness of dosing and interval
- Follow Up
Pharmacy will continue to follow.
Vancomycin Follow UP
- -
Patient Age: 78
Patient Sex: Male
Vancomycin Day #: 18
Indication: Skin And Soft Tissue
Requesting Provider: Diane Hilton / Dr. Lombardi
Pertinent Antimicrobial Allergies:
no pertinent antibiotic allergies
Height / Weight:
Height 5 ft 9 in
Actual Weight 97.721 kg
IBW in k.7
Pertinent Past Medical History: DM 2
- Vital Signs / Lab Results
Temp Pulse Resp BP Pulse Ox
98.4 F 74 18 124/65 95
04/22/24 07:15 04/22/24 07:15 04/22/24 07:15 04/22/24 07:15 04/22/24 07:15
Lab Results - Hematology
04/21/24 04/22/24
07:28 04:09
WBC 13.7 H 16.3 H
Lab Results - Chemistry
04/21/24 04/22/24
07 04:09
BUN 17 19
Creatinine 0.8 0.7
Estimated Creat Clear 91 104
Albumin 2.8 L
Microbiology Results
04/21/24 19:15 Gram Stain - Final
Heel - Left
Therapeutic Drug Monitoring
Vancomycin Peak 27.6 ug/ml (18-26) H 04/10/24 22:26
Vancomycin Trough 21.4 ug/ml (5-20) H* 04/11/24 05:49
Random Vancomycin 12.4 ug/ml 04/22/24 04:09
--- NOTE | 2024-04-22 10:39 | W.PN.VS ---
Today's Communication / Plan
-
d/w Dr Millan
Assessment/Plan
-
POD 4
Intravascular lithotripsy to calcified left external iliac artery stenosis
Balloon angioplasty and stenting of left external iliac artery stenosis
Intravascular lithotripsy to calcified left superficial femoral artery and above-knee popliteal artery stenoses
Balloon angioplasty and stenting of left superficial femoral artery and above-knee popliteal artery stenosis
Balloon angioplasty and stenting of right common iliac artery stenosis
Sharp excisional debridement of left heel wound including skin and subcutaneous tissue
Sharp excisional debridement of left pfeiffer wound including skin, subcutaneous tissue, muscle and fascia
Sharp excisional debridement of right pfeiffer and ankle wound
POD 1
Intravascular lithotripsy to right superficial femoral artery and popliteal artery calcified stenoses
Balloon angioplasty and drug-eluting stenting of right popliteal artery and superficial femoral artery
Sharp excisional debridement of right heel including skin and subcutaneous tissue
Sharp excisional debridement of right Achilles wound including skin, subcutaneous tissue and tendon
Sharp excisional debridement of left heel wound including skin, subcutaneous tissue and bone
Plan:
-Local wound care
-I will place follow up appointments in [place] instructions
Subjective Data
-
Date of Service: April 22, 2024
Pt seen at bedside this am. No events overnight. Cooperative with 1:1 overnight
Objective Data
-
Vital Signs
Temp Pulse Resp BP Pulse Ox
98.4 F 74 18 124/65 95
04/22/24 07:15 04/22/24 07:15 04/22/24 07:15 04/22/24 07:15 04/22/24 07:15
Intake and Output
04/21/24 04/22/24 04/23/24
06:59 06:59 06:59
Intake Total 780 / 780
Output Total 300 / 300
Balance 780 / 780 -300 / -300
Intake:
Oral fluids 780 / 780
Output:
Urine, Voided 300 / 300
Other:
How many times incontinent 2
MODERATE amount urine
How many times incontinent 3
SATURATED amount urine
Lab Results
04/22/24 04:09
04/22/24 04:09
Calcium 8.7 mg/dl (8.4-10.2) 04/22/24 04:09
Magnesium 1.7 mg/dl (1.6-2.3) 04/21/24 07:28
Total Bilirubin 0.4 mg/dl (0.2-1.3) 04/21/24 07:28
AST 18 U/L (17-59) 04/21/24:28
ALT 16 U/L (0-50) 04/21/24 07:28
Alkaline Phosphatase 71 U/L (38-126) 04/21/24 07:28
Total Protein 5.5 g/dl (6.3-8.2) L 04/21/24 07:28
Albumin 2.8 g/dl (3.5-5.0) L 04/21/24 07:28
Physical Exam
-
NAD
No tachypnea on room air
No tachycardia
Abdomen soft
BL leg dressings c/d/i, no drainage noted
Groin site flat, soft, no hematoma or drainage
[2024-04-22] MEDS: VANCOCIN 300 ML IV (11:13)
[2024-04-22] MEDS: VANCOCIN 300 MG IV (11:13)
[2024-04-22] MEDS: DAKIN'S SOLUTION 0.125% 1/4 STRENGTH 473 ML TOPICAL (11:14)
--- NOTE | 2024-04-22 12:09 | CM ---
CM reviewed chart, met with patient and family bedside. Reports no needs to CM at this time. Updates to [place] sent through [facility]. CM will continue to follow for all discharge planning needs.
Plan; return to [place] once medically stable.
[2024-04-22 12:34] LABS: Glucose - Point of Care 308 mg/dl (70-99)
[2024-04-22] MEDS: NOVOLOG FLEXPEN-MODERATE RESISTANCE 7 UNITS SC ×2 (12:58→17:12)
--- NOTE | 2024-04-22 15:46 | W.PN.HOSP.TC ---
Today's Communication/Plan
-
Wound care per
IV antibiotics
Resume diet
Adjust insulin
Assessment / Plan
Assessment / Plan
Impression:
Bilateral lower extremity trophic wounds with dry gangrene and acute on chronic cellulitis
Suspect severe PAD.
Altered mental status secondary to toxic metabolic encephalopathy.
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
Mild hyponatremia sodium 133
Other conditions:
CAD with history of PCI unknown details.
CHF unknown EF
Anemia of chronic disease.
IDDM.
Essential hypertension.
BPH.
Obstructive sleep apnea not compliant with CPAP
Chronic ambulatory dysfunction likely multifactorial (PAD, diabetic neuropathy, cognitive status)
Plan:
Bilateral lower extremity wounds with dry gangrene at the heels.
Suspect severe PAD.
Arterial ultrasound
1. As above, examination was limited by the patient's inability to remain motionless secondary to pain. Ankle brachial indices were unobtainable.
2. Right toe brachial index of 0.16. Right common femoral waveform is multiphasic, but somewhat dampened suggesting probable component of inflow disease. There are monophasic dampened waveforms throughout the superficial femoral and popliteal
arteries. No high-grade focal stenosis is identified sonographically.
3. Left toe brachial index of 0.07. The left common femoral waveform is monophasic, consistent with inflow disease. There is moderate to severe stenosis of the mid left superficial femoral artery.
X-ray with osteoporosis.
CTA Overall moderate diffuse atherosclerotic disease, as detailed above. The right superficial femoral artery contains moderate calcification with focal near complete occlusion distally. In the right lower leg, there is only two-vessel proximal
run off with nonvisualization of the majority of the anterior tibial artery and cut off of the peroneal artery just above the ankle.
Wound culture with MRSA and ESBL, later postOP LLE Cx with Pseudomonas, MSSA, Proteus- Switched to Merrem from Ertapenem on 04/19/24 (for pseudomonal coverage), however patient was declining Abx until the next day. Also declined dressing change 2/
pain - added Dilaudid to be given before procedure. PAtient previously as per family had Hx of confusion after opioids, so using lowest dose.
Afebrile and hemodynamically stable. Noted with rising WBC.
Sepsis ruled out
Discussed with vascular surgery
Difficult situation: Left lower extremity severe wound with tendon exposed with concern for osteomyelitis. Limb with less likely solvable at this point. Right lower extremity with proving vascular insufficiency may require intervention. If any
decision should be made in terms of consolidating procedure with consideration of a left AKA and attempt of revascularization on the right.
Infectious disease input appreciated.
MRI of the left lower extremity negative for osteomyelitis
Antibiotics transition from vancomycin/Zosyn to vancomycin/ertapenem
Status post arteriogram on 04/15 with left lower extremity I&D and revascularization
Status post Right lower extremity arteriogram, right SFA pop IV L and stent placement. Bilateral lower leg wound debridement
Podiatry consultation
Continue wound care including wound VAC
Altered mental status suspect toxic metabolic encephalopathy in the settings of acute infection.
resolved
Suspect underlying dementia vascular type.
CT head without acute abnormalities
Monitor closely.
CAD.
CHF preserved EF by history.
Essential hypertension
Current volume status compensated.
Check baseline ECG.
Echocardiogram preserved biventricular function with no significant valvular abnormalities
LDL 52
Continue current regimen including Coreg, Cardura, hydralazine
Continue aspirin
Continue furosemide with caution monitor renal function and volume status.
Mild hyponatremia volume loop diuretics.
Follow BMP.
IDDM with persistent hyperglycemia
Hemoglobin A1c 8.1
Continue Lantus 14 at bedtime. Add insulin aspart for AC.
Continue basal bolus protocol with serial Accu-Cheks
Carbohydrate controlled diet
BPH
Monitor for retention.
On Flomax
Obstructive sleep apnea
Reportedly not compliant with CPAP.
Admission ABG pH 7.4 on room air 99%
Continue CPAP at bedtime.
Full code.
DVT prophylaxis Lovenox
I have spent at least 38min reviewing chart, test results, communication with consultants and direct patient care
Anticipated Discharge: > 48 hours
Subjective/Interval History
-
Date of Service: April 22, 2024
Objective Data
-
Labs:
Laboratory Results
04/22/24
04:09
WBC 16.3 H
Hgb 9.2 L
Hct 27.2 L
Plt Count 406 H
Sodium 135
Potassium 4.2
Chloride 98
Carbon Dioxide 26
BUN 19
Creatinine 0.7
Glucose 241 H
Calcium 8.7
Vital Signs:
Vital Signs
Temp Pulse Resp BP Pulse Ox
98.1 F 74 18 126/54 100
04/22/24 15:39 04/22/24 15:39 04/22/24 15:39 04/22/24 15:39 04/22/24 15:39
I&O
04/21/24 04/22/24 04/23/24
06:59 06:59 06:59
Intake Total 780 / 780
Output Total 300 / 300
Balance 780 / 780 -300 / -300
Physical Exam
-
General: Well Developed and No Apparent Distress
HEENT: Normocephalic, Atraumatic and Moist Mucous Membranes
Respiratory: Clear to Auscultation
Cardiac: Regular Rhythm and S1/S2; Negative Murmur, Rub or Gallop
GI: Soft, Nontender, Nondistended and Normal Bowel Sounds; Negative Organomegaly
Rectal: Deferred by Provider
Musculoskeletal: No Clubbing, No Cyanosis and No Edema
Skin: Negative Rash
Neuro: Nonfocal/Grossly Intact
--- NOTE | 2024-04-22 16:15 | W.PN.ID1 ---
Date of Service
Date of Service: April 22, 2024
Today's Communication
Continue Vancomycin and meropenem.
Assessment / Plan
# Acute on chronic extensive ischemic wounds LLE> RLE.
LLE tendon exposed.
# Suspect left heel osteo
# Severe PAD
# Leukocytosis trending up
# DM
# MRSA colonized
- 04/04 RLE ankle surface wound swab MRSA and ESBL-Klebsiella .
- 04/15/24 s/p LLE and RLE endovasular intervention
s/p debridement of left heel pfeiffer to fascia and right pfeiffer and ankle wounds.
- OR left tissue cx MSSA, Pseudomonas, Proteus, GNR
-04/21/24 s/p RLE endovascular intervention
s/p left heel debridement to bone, bone biopsy culture pending
s/p right ankle wound I+D, right heel and Achilles wounds I+D, Achilles tendon exposed
- s/p 4 days Zosyn -> 8days Ertapenem -> meropenem.
-Continue meropenem (d5)
- Continue Vancomycin (d18)
- Trend wbc.
-Picc in place
-Anticipate 4- 6 weeks IV abx.
# Additional Past Medical History:
DM2
HTN
HLD
PAD
BLE lymphedema
Chronic BLE wounds follows at [facility]
CAD s/p stent
CHF
FRANCESCO
BPH
Chief Complaint
-: Other (Ischemic wounds)
Vital Signs / Physical Exam
Vital Signs
Vital Signs
Temp Pulse Resp BP Pulse Ox
98.1 F 74 18 126/54 100
04/22/24 15:39 04/22/24 15:39 04/22/24 15:39 04/22/24 15:39 04/22/24 15:39
Physical Exam
Constitutional: No Acute Distress
Gastrointestinal: Soft, Non Tender and Non Distended
Lines: PICC (intact)
Objective Data
Lab Data
Lab Results
04/22/24 04:09
04/22/24 04:09
Estimated Creat Clear 104 ml/min 04/22/24 04:09
Lactic Acid 1.1 mmol/L (0.7-2.0) 04/04/24 16:51
Total Bilirubin 0.4 mg/dl (0.2-1.3) 04/21/24 07:28
AST 18 U/L (17-59) 04/21/24 07:28
ALT 16 U/L (0-50) 04/21/24 07:28
Alkaline Phosphatase 71 U/L (38-126) 04/21/24 07:28
Most recent labs reviewed.
Micro Results:
04/21/24 19:15 Tissue Culture - Pending
Heel - Left Gram Stain - Final
04/15/24 19:21 Tissue Culture - Final
Leg - Left S aureus-Methicillin Sensitive
Pseudomonas aeruginosa
Proteus mirabilis
Gram negative bacilli
Gram Stain - Final
04/04/24 21:49 Blood Culture - Final
Blood/Venous No Growth - Final Report
04/04/24 19:45 Blood Culture - Final
Blood/Venous No Growth - Final Report
04/04/24 19:45 Wound Culture - Final
Foot - Right Staph aureus MRSA
Klebsiella pneumoniae-ESBL
Gram Stain - Final
04/04/24 19:46 Urine Culture - Final
Urine NO GROWTH
04/05/24 04:34 MRSA Screen - Final
Nose Staph aureus MRSA
04/05/24 15:49 Influenza Types A & B (JEANNIE) - Final
Nasal Swab Negative for Influenza A & B, NAAT
Negative results must be combined with clinical observations
and patient history.
Nucleic Acid Amplification test (NAAT)performed on the
[employer] platform.
04/10/24 MRI LLE wo: No MRI evidence for acute osteomyelitis in the left hindfoot or midfoot. Multiple wounds in the distal left lower leg and ankle.
04/09/24 CTA: Overall moderate diffuse atherosclerotic disease, as detailed above. The right superficial femoral artery contains moderate calcification with focal near complete occlusion distally. In the right lower leg, there is only two-vessel
proximal run off with nonvisualization of the majority of the anterior tibial artery and cut off of the peroneal artery just above the ankle.
[2024-04-22 16:26] LABS: Glucose - Point of Care 303 mg/dl (70-99)
[2024-04-22] MEDS: LIPITOR 10 MG PO (17:13)
[2024-04-22] MEDS: LOVENOX 40 MG SC (17:13)
[2024-04-22] MEDS: MELATONIN 5 MG PO (21:17)
[2024-04-22] MEDS: LANTUS 0.2 UNITS SC (21:17)
[2024-04-22] MEDS: CARDURA 2 MG PO (21:17)
[2024-04-22 21:25] LABS: Glucose - Point of Care 224 mg/dl (70-99)
[2024-04-23] MEDS: MERREM 500 MG IV ×4 (03:17→21:42)
[2024-04-23] MEDS: STERILE WATER FOR INJECTION 10 ML IV ×4 (03:18→21:41)
[2024-04-23 04:32] LABS: % Basophils 0.6 % (0-2); % Eosinophils 2.2 % (0-6); % Immature Granulocytes 0.7 % (0-0.5); % Lymphocytes 23.6 % (20.5-51.1); % Monocytes 9.5 % (1.7-9.3); % Neutrophils 63.4 % (42.2-75.2); Absolute Basophils 0.1 10^3/uL (0-0.2); Absolute Eosinophils 0.2 10^3/uL (0-0.7); Absolute Immature Granulocytes 0.1 10^3/uL (0-0.05); Absolute Lymphocytes 2.5 10^3/uL (1.2-3.4); Absolute Neutrophils 6.7 10^3/uL (1.4-6.5); Hematocrit 24.6 % (39.0-52.0); Hemoglobin 8.3 g/dL (13.0-18.0); Mean Corp Hgb Conc. 33.7 g/dL (33.0-37.0); Mean Corpuscular Hgb 29.1 pg (27.0-31.0); Mean Corpuscular Volume 86.3 fL (80.0-94.0); Nucleated Red Blood Cells % 0 % (-); Platelet Count 377 10^3/uL (130-400); Red Blood Cell Count 2.85 10^6/uL (4.70-6.10); Red Cell Dist. Width 14.4 % (11.5-14.5); White Blood Cell Count 10.6 10^3/uL (4.8-10.8)
[2024-04-23 04:54] LABS: Blood Urea Nitrogen 20 mg/dl (9-20); Calcium 8.6 mg/dl (8.4-10.2); Carbon Dioxide 27 mmol/L (22-30); Chloride 96 mmol/L (98-107); Estimated Creatinine Clearance 104 ml/min; Glucose 127 mg/dl (70-99); Potassium 3.9 mmol/L (3.5-5.1); Sodium 131 mmol/L (135-145); eGFR > 60.00
[2024-04-23 05:26] VITALS: BMI 32.6
[2024-04-23] MEDS: VANCOCIN 300 MG IV (05:45)
[2024-04-23] MEDS: VANCOCIN 300 ML IV (05:45)
[2024-04-23 07:20] VITALS: BP 117/43
[2024-04-23 07:30] LABS: Glucose - Point of Care 128 mg/dl (70-99)
[2024-04-23] MEDS: NOVOLOG FLEXPEN-MODERATE RESISTANCE SC (07:36)
[2024-04-23] MEDS: NOVOLOG FLEXPEN 7 UNITS SC ×3 (08:22→17:14)
[2024-04-23] MEDS: ASPIR LOW (ENTERIC COATED) 81 MG PO (08:23)
[2024-04-23] MEDS: APRESOLINE 10 MG PO ×3 (08:23→21:41)
[2024-04-23] MEDS: COREG 25 MG PO ×2 (08:23→19:58)
[2024-04-23] MEDS: MIRALAX 17 GRAMS PO (08:23)
[2024-04-23] MEDS: DAKIN'S SOLUTION 0.125% 1/4 STRENGTH 1 ML TOPICAL (08:24)
[2024-04-23] MEDS: LOTRIMIN 1% CREAM 1 APPLIC TOPICAL ×2 (08:25→19:58)
[2024-04-23] MEDS: FLOMAX 0.4 MG PO (08:25)
[2024-04-23] MEDS: LASIX 40 MG PO (08:25)
[2024-04-23] MEDS: PROTONIX 40 MG PO (08:26)
[2024-04-23] MEDS: PLAVIX 75 MG PO (08:26)
[2024-04-23] MEDS: SENOKOT-S 1 TABLET PO ×2 (08:26→19:58)
[2024-04-23] MEDS: MAG-TAB SR 84 MG PO ×2 (08:26→19:58)
[2024-04-23] MEDS: DESENEX/MITRAZOL/ZEASORB 1 APPLIC TOPICAL ×2 (08:26→19:58)
--- NOTE | 2024-04-23 08:32 | PHA.VAN.FU ---
Vancomycin Assessment / Plan
- Assessment
Renal Function: Stable
WBC's are: WNL
In the past 24 hrs, patient has been: Afebrile
Concomitant Antimicrobials: meropenem
- Dosing Plan
Continue: Vanc 1500mg Q24H
- Monitoring Plan
Trough Level: 04/24 05:30
- Follow Up
Pharmacy will continue to follow.
Vancomycin Follow UP
- -
Patient Age: 78
Patient Sex: Male
Vancomycin Day #: 19
Indication: Skin And Soft Tissue
Requesting Provider: Diane Hilton / Dr. Lombardi
Pertinent Antimicrobial Allergies:
no pertinent antibiotic allergies
Height / Weight:
Height 5 ft 9 in
Actual Weight 99.989 kg
IBW in k.7
Pertinent Past Medical History: DM 2, BMI ~33
- Vital Signs / Lab Results
Temp Pulse Resp BP Pulse Ox
97.7 F 71 18 117/43 97
04/23/24 07:20 04/23/24 07:20 04/23/24 07:20 04/23/24 07:20 04/23/24 07:20
Lab Results - Hematology
04/21/24 04/22/24 04/23/24
07:28 04:09 04:20
WBC 13.7 H 16.3 H 10.6
Lab Results - Chemistry
04/21/24 04/22/24 04/23/24
07:28 04:09 04:20
BUN 17 19 20
Creatinine 0.8 0.7 0.7
Estimated Creat Clear 91 104 104
Albumin 2.8 L
Microbiology Results
04/21/24 19:15 Gram Stain - Final
Heel - Left
Therapeutic Drug Monitoring
Vancomycin Peak 27.6 ug/ml (18-26) H 04/10/24 22:26
Vancomycin Trough 21.4 ug/ml (5-20) H* 04/11/24 05:49
Random Vancomycin 12.4 ug/ml 04/22/24 04:09
--- NOTE | 2024-04-23 08:54 | CON.MD ---
Consultation - Medical
-
Consult for 78 year old Male admitted with dry gangrene and acute on chronic bilateral LE cellulitis, to assess lower extremity wounds. PMH includes IDDM, PAD, CAD, CHF as well as dementia (vascular) and toxic metabolic encephalopathy causing
altered mental state. Vascular intervention performed 04/21/2024 included intravascular lithotripsy right SFA and popliteal artery, debridement of skin and subcutaneous tissue right heel and right achilles tendon area and debridement to bone with
biopsy left heel. Most recent wound culture of left leg positive for pseudomonas, MSSA and Proteus. Last MRI of LLE was negative for osteomyelitis. Patient is currently afebrile with slight elevation in WBC.
Attempted exam but patient refused removal of dressing and any contact to the lower extremities. He appears to be comfortable in bed and in no acute pain but states 'too much pain' when refusing exam. Discussed with nursing the option of pain
medication before any dressing changes or exam, but chart notes that family relays patient confusion after taking opioids. Agree that this is a very difficult situation considering patient's mental status and the severity of bilateral arterial
disease, with bilateral TBIs below 0.2. With LLE achilles tendon exposure any appreciable wound healing is extremely unlikely. Very high risk for limb loss bilaterally. Will discuss pain management with hospitalist and attempt exam possibly
later today or tomorrow morning.
--- NOTE | 2024-04-23 10:19 | WOUNDNOTE ---
WOC RN note: Confirmed with Radha Rodriguez Vascular PA that the L heel wound vac is to stay off/discontinued on Sunday and to resume same wound care for heels as was ordered for the legs currently.
[2024-04-23 11:37] LABS: Glucose - Point of Care 219 mg/dl (70-99)
[2024-04-23] MEDS: NOVOLOG FLEXPEN-MODERATE RESISTANCE 1 UNITS SC (13:22)
--- NOTE | 2024-04-23 14:52 | W.PN.ID1 ---
Date of Service
Date of Service: April 23, 2024
Today's Communication
Continue Vanco/meropenem.
Assessment / Plan
# Acute on chronic extensive ischemic wounds LLE> RLE.
LLE tendon exposed.
# Severe PAD
# Leukocytosis resolved
# DM
# MRSA colonized
- 04/04 RLE ankle surface wound swab MRSA and ESBL-Klebsiella .
- 04/15/24 s/p LLE and RLE endovascular intervention
s/p debridement of left heel pfeiffer to fascia and right pfeiffer and ankle wounds.
- OR left tendon cx MSSA, Pseudomonas, Proteus, GNR
-04/21/24 s/p RLE endovascular intervention
s/p left heel debridement to bone.
left heel bone cx neg to date. (04/10 MRI left foot - no osteo)
s/p right ankle wound I+D, right heel and Achilles wounds I+D, Achilles tendon exposed
- s/p 4 days Zosyn -> 8 days Ertapenem -> meropenem.
-Continue meropenem (d5)
- Continue Vancomycin (d19)
-Picc in place
# Additional Past Medical History:
DM2
HTN
HLD
PAD
BLE lymphedema
Chronic BLE wounds follows at [facility]
CAD s/p stent
CHF
FRANCESCO
BPH
Chief Complaint
-: Other (Ischemic wounds)
Subjective / Review of Systems
c/o wound pain during dressing change
Vital Signs / Physical Exam
Vital Signs
Vital Signs
Temp Pulse Resp BP Pulse Ox
97.7 F 71 18 117/43 97
04/23/24 07:20 04/23/24 07:20 04/23/24 07:20 04/23/24 07:20 04/23/24 08:45
Physical Exam
Constitutional: No Acute Distress
Gastrointestinal: Soft, Non Tender and Non Distended
Genito-Urinary: Negative CVA Tenderness
Objective Data
Lab Data
Lab Results
04/23/24 04:20
04/23/24 04:20
Estimated Creat Clear 104 ml/min 04/23/24 04:20
Lactic Acid 1.1 mmol/L (0.7-2.0) 04/04/24 16:51
Total Bilirubin 0.4 mg/dl (0.2-1.3) 04/21/24 07:28
AST 18 U/L (17-59) 04/21/24 07:28
ALT 16 U/L (0-50) 04/21/24 07:28
Alkaline Phosphatase 71 U/L (38-126) 04/21/24 07:28
Most recent labs reviewed.
Micro Results:
04/21/24 19:15 Tissue Culture - Preliminary
Heel - Left No Growth After 18-24 Hours
Gram Stain - Final
04/15/24 19:21 Tissue Culture - Final
Leg - Left S aureus-Methicillin Sensitive
Pseudomonas aeruginosa
Proteus mirabilis
Gram negative bacilli
Gram Stain - Final
04/04/24 21:49 Blood Culture - Final
Blood/Venous No Growth - Final Report
04/04/24 19:45 Blood Culture - Final
Blood/Venous No Growth - Final Report
04/04/24 19:45 Wound Culture - Final
Foot - Right Staph aureus MRSA
Klebsiella pneumoniae-ESBL
Gram Stain - Final
04/04/24 19:46 Urine Culture - Final
Urine NO GROWTH
04/05/24 04:34 MRSA Screen - Final
Nose Staph aureus MRSA
04/05/24 15:49 Influenza Types A & B (JEANNIE) - Final
Nasal Swab Negative for Influenza A & B, NAAT
Negative results must be combined with clinical observations
and patient history.
Nucleic Acid Amplification test (NAAT)performed on the
[employer] platform.
04/10/24 MRI LLE wo: No MRI evidence for acute osteomyelitis in the left hindfoot or midfoot. Multiple wounds in the distal left lower leg and ankle.
04/09/24 CTA: Overall moderate diffuse atherosclerotic disease, as detailed above. The right superficial femoral artery contains moderate calcification with focal near complete occlusion distally. In the right lower leg, there is only two-vessel
proximal run off with nonvisualization of the majority of the anterior tibial artery and cut off of the peroneal artery just above the ankle.
[2024-04-23 15:29] VITALS: BP 124/50
[2024-04-23 16:38] LABS: Glucose - Point of Care 296 mg/dl (70-99)
--- NOTE | 2024-04-23 16:43 | W.PN.HOSP.TC ---
Today's Communication/Plan
-
IV antibiotics
Wound care.
Add IV hydromorphone for better pain control with wound care
Adjust insulin regimen daily.
Assessment / Plan
Assessment / Plan
Impression:
Bilateral lower extremity trophic wounds with dry gangrene and acute on chronic cellulitis
Suspect severe PAD.
Altered mental status secondary to toxic metabolic encephalopathy.
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
Mild hyponatremia sodium 133
Other conditions:
CAD with history of PCI unknown details.
CHF unknown EF
Anemia of chronic disease.
IDDM.
Essential hypertension.
BPH.
Obstructive sleep apnea not compliant with CPAP
Chronic ambulatory dysfunction likely multifactorial (PAD, diabetic neuropathy, cognitive status)
Plan:
Bilateral lower extremity wounds with dry gangrene at the heels.
Suspect severe PAD.
Arterial ultrasound
1. As above, examination was limited by the patient's inability to remain motionless secondary to pain. Ankle brachial indices were unobtainable.
2. Right toe brachial index of 0.16. Right common femoral waveform is multiphasic, but somewhat dampened suggesting probable component of inflow disease. There are monophasic dampened waveforms throughout the superficial femoral and popliteal
arteries. No high-grade focal stenosis is identified sonographically.
3. Left toe brachial index of 0.07. The left common femoral waveform is monophasic, consistent with inflow disease. There is moderate to severe stenosis of the mid left superficial femoral artery.
X-ray with osteoporosis.
CTA Overall moderate diffuse atherosclerotic disease, as detailed above. The right superficial femoral artery contains moderate calcification with focal near complete occlusion distally. In the right lower leg, there is only two-vessel proximal
run off with nonvisualization of the majority of the anterior tibial artery and cut off of the peroneal artery just above the ankle.
Wound culture with MRSA and ESBL, later postOP LLE Cx with Pseudomonas, MSSA, Proteus- Switched to Merrem from Ertapenem on 10/19/24 (for pseudomonal coverage),
Afebrile and hemodynamically stable. Noted with rising WBC.
Sepsis ruled out
Discussed with vascular surgery
Difficult situation: Left lower extremity severe wound with tendon exposed with concern for osteomyelitis. Limb with less likely solvable at this point. Right lower extremity with proving vascular insufficiency may require intervention. If any
decision should be made in terms of consolidating procedure with consideration of a left AKA and attempt of revascularization on the right.
Infectious disease input appreciated.
MRI of the left lower extremity negative for osteomyelitis
Antibiotics transition from vancomycin/Zosyn to vancomycin/ertapenem
Status post arteriogram on 04/15 with left lower extremity I&D and revascularization
Status post Right lower extremity arteriogram, right SFA pop IV L and stent placement. Bilateral lower leg wound debridement
Podiatry consultation
Continue wound care including wound VAC
Altered mental status suspect toxic metabolic encephalopathy in the settings of acute infection.
resolved
Suspect underlying dementia vascular type.
CT head without acute abnormalities
Monitor closely.
CAD.
CHF preserved EF by history.
Essential hypertension
Current volume status compensated.
Check baseline ECG.
Echocardiogram preserved biventricular function with no significant valvular abnormalities
LDL 52
Continue current regimen including Coreg, Cardura, hydralazine
Continue aspirin
Continue furosemide with caution monitor renal function and volume status.
Mild hyponatremia volume loop diuretics.
Follow BMP.
IDDM with persistent hyperglycemia
Hemoglobin A1c 8.1
Lantus 20 at bedtime/NovoLog 7 AC
Continue basal bolus protocol with serial Accu-Cheks
Carbohydrate controlled diet
BPH
Monitor for retention.
On Flomax
Obstructive sleep apnea
Reportedly not compliant with CPAP.
Admission ABG pH 7.4 on room air 99%
Continue CPAP at bedtime.
Full code.
DVT prophylaxis Lovenox
I have spent at least 38min reviewing chart, test results, communication with consultants and direct patient care
Anticipated Discharge: > 48 hours
Subjective/Interval History
-
Date of Service: April 23, 2024
Objective Data
-
Labs:
Laboratory Results
04/23/24
04:20
Sodium 131 L
Potassium 3.9
Chloride 96 L
Carbon Dioxide 27
BUN 20
Creatinine 0.7
Glucose 127 H
Calcium 8.6
Vital Signs:
Vital Signs
Temp Pulse Resp BP Pulse Ox
99.1 F 77 16 124/50 96
04/23/24 15:29 04/23/24 15:29 04/23/24 15:29 04/23/24 15:29 04/23/24 15:29
I&O
04/22/24 04/23/24 04/24/24
06:59 06:59 06:59
Intake Total 720 / 720
Output Total 300 / 300 300 / 300
Balance -300 / -300 420 / 420
Physical Exam
-
General: Well Developed and No Apparent Distress
HEENT: Normocephalic, Atraumatic and Moist Mucous Membranes
Respiratory: Clear to Auscultation
Cardiac: Regular Rhythm and S1/S2; Negative Murmur, Rub or Gallop
GI: Soft, Nontender, Nondistended and Normal Bowel Sounds; Negative Organomegaly
Rectal: Deferred by Provider
Musculoskeletal: No Clubbing, No Cyanosis and No Edema
Skin: Negative Rash
Neuro: Nonfocal/Grossly Intact
[2024-04-23] MEDS: NOVOLOG FLEXPEN-MODERATE RESISTANCE 5 UNITS SC (17:13)
[2024-04-23] MEDS: LIPITOR 10 MG PO (17:14)
[2024-04-23] MEDS: LOVENOX 40 MG SC (17:14)
[2024-04-23 21:21] LABS: Glucose - Point of Care 244 mg/dl (70-99)
[2024-04-23] MEDS: LANTUS 0.2 UNITS SC (21:41)
[2024-04-23] MEDS: CARDURA 2 MG PO (21:41)
[2024-04-23] MEDS: MELATONIN 5 MG PO (21:41)
[2024-04-23 22:55] VITALS: BP 137/48
[2024-04-24] MEDS: MERREM 500 MG IV ×2 (05:43→11:51)
[2024-04-24] MEDS: STERILE WATER FOR INJECTION 10 ML IV ×2 (05:43→11:51)
--- NOTE | 2024-04-24 05:51 | VATNOTE ---
NOTIFIED BY PCN THAT PT HAD REMOVED L PICC. NEW IV SITE ESTABLISHED DOCUMENTED AND LABS OBTAINED ORDERED. MATTHEW CONSULT WITH MEDICAL TEAM TODAY TO DETERMINE FURTHER NEED FOR CVAD VS PERIPHERAL ACCESS FOR CONTINUED ABX THERAPY.
[2024-04-24 06:00] VITALS: BMI 32.4
[2024-04-24] MEDS: VANCOCIN 300 ML IV (06:02)
[2024-04-24] MEDS: VANCOCIN 300 MG IV (06:02)
[2024-04-24] MEDS: DILAUDID 0.5 MG IV (07:41)
[2024-04-24 07:48] LABS: Glucose - Point of Care 169 mg/dl (70-99)
[2024-04-24 08:07] VITALS: BP 140/67
--- NOTE | 2024-04-24 08:13 | W.PN.UPDATE ---
Update Note
Progress Note Update
Bilateral LE dressings changed with myself, wound care and nursing. Dilaudid given for pain management. Left LE with open heel wound to deep tissue. Lateral aspect with non viable tissue noted at wound margin with stable edges medially. No
malodor and minimal drainage noted. Lateral 3rd toe interspace at PIPJ with full thickness ulceration with no surrounding erythema and no drainage. Dorsal right hallux with stable, superficial ulcer just distal to the IPJ. No associated drainage
or erythema noted. Right LE examined with 3 cm of exposed achilles tendon, however adjacent soft tissue appears granular with minimal drainage and stable wound edges. No tendon necrosis is noted. Right heel wound appears with stable edges, no
malodor and minimal drainage. All exposed wounds cleansed with saline and completely covered with adaptic. Wrapped with abd padding, and Sherly.
Wounds all appear clean with no malodor and minimal drainage, however left heel ulcer 1.5 cm area of nonviable soft tissue at the lateral aspect. Right achilles tendon exposed but tendon and surrounding tissue viable. Suggest continuation of
current daily wound care but would discontinue erasmo bandage wraps to avoid any increased pressure to vulnerable areas. Patient is at significant risk for limb loss due to very poor distal arterial perfusion and if after the recent vascular
intervention and debridement additional necrosis develops, amputation will be warranted. Please reconsult as needed.
--- NOTE | 2024-04-24 08:30 | PHA.VAN.FU ---
Vancomycin Assessment / Plan
- Assessment
Renal Function: No New Labs Today
Concomitant Antimicrobials: meropenem
- Assessment - Trough Based Monitoring
Trough Value: 12
Level Today was: Appropriate
Level Comments: drawn ~24H after previous dose
- Dosing Plan
Continue: Vanc 1500mg Q24H
- Monitoring Plan
No level(s) ordered at this time: consider levels in next few days
- Follow Up
Pharmacy will continue to follow.
Vancomycin Follow UP
- -
Patient Age: 78
Patient Sex: Male
Vancomycin Day #: 20
Indication: Skin And Soft Tissue
Requesting Provider: Diane Hilton / Dr. Lombardi
Pertinent Antimicrobial Allergies:
no pertinent antibiotic allergies
Height / Weight:
Height 5 ft 9 in
Actual Weight 99.507 kg
IBW in k.7
Pertinent Past Medical History: DM 2, BMI ~33
- Vital Signs / Lab Results
Temp Pulse Resp BP Pulse Ox
98.4 F 85 17 140/67 98
04/24/24 08:07 04/24/24 08:07 04/24/24 08:07 04/24/24 08:07 04/24/24 08:07
Lab Results - Hematology
04/22/24 04/23/24
04:09 04:20
WBC 16.3 H 10.6
Lab Results - Chemistry
04/22/24 04/23/24
04:09 04:20
BUN 19 20
Creatinine 0.7 0.7
Estimated Creat Clear 104 104
Microbiology Results
04/21/24 19:15 Tissue Culture - Preliminary
Heel - Left No Growth After 18-24 Hours
Gram Stain - Final
Therapeutic Drug Monitoring
Vancomycin Peak 27.6 ug/ml (18-26) H 04/10/24 22:26
Vancomycin Trough 12.0 ug/ml (5-20) 04/24/24 05:36
Random Vancomycin 12.4 ug/ml 04/22/24 04:09
[2024-04-24] MEDS: NOVOLOG FLEXPEN 7 UNITS SC ×3 (08:41→17:38)
[2024-04-24] MEDS: NOVOLOG FLEXPEN-MODERATE RESISTANCE 1 UNITS SC (08:42)
[2024-04-24] MEDS: APRESOLINE 10 MG PO ×3 (08:43→21:44)
[2024-04-24] MEDS: MAG-TAB SR 84 MG PO ×2 (08:43→19:25)
[2024-04-24] MEDS: COREG 25 MG PO ×2 (08:43→19:24)
[2024-04-24] MEDS: FLOMAX 0.4 MG PO (08:45)
[2024-04-24] MEDS: PLAVIX 75 MG PO (08:45)
[2024-04-24] MEDS: MIRALAX 17 GRAMS PO (08:45)
[2024-04-24] MEDS: ASPIR LOW (ENTERIC COATED) 81 MG PO (08:45)
[2024-04-24] MEDS: PROTONIX 40 MG PO (08:45)
[2024-04-24] MEDS: DAKIN'S SOLUTION 0.125% 1/4 STRENGTH 10 ML TOPICAL (08:46)
[2024-04-24] MEDS: LASIX 40 MG PO (08:47)
[2024-04-24] MEDS: DESENEX/MITRAZOL/ZEASORB 1 APPLIC TOPICAL ×2 (08:48→19:24)
[2024-04-24] MEDS: LOTRIMIN 1% CREAM 1 APPLIC TOPICAL ×2 (08:49→19:24)
--- NOTE | 2024-04-24 08:52 | WOUNDNOTE ---
RLE/FOOT (ANTERIOR)
--- NOTE | 2024-04-24 08:55 | WOUNDNOTE ---
L CALF/HEEL (POSTERIOR)
--- NOTE | 2024-04-24 08:57 | WOUNDNOTE ---
R 4TH TOE (MEDIAL)
--- NOTE | 2024-04-24 08:57 | WOUNDNOTE ---
SACRAL/BRUCE, BUTTOCKS
--- NOTE | 2024-04-24 08:58 | WOUNDNOTE ---
THIGH/BRUCE SKIN
--- NOTE | 2024-04-24 08:58 | WOUNDNOTE ---
BRUCE/BUTTOCKS/THIGH (POSTERIOR)
--- NOTE | 2024-04-24 09:03 | WOUNDNOTE ---
[facility] RN note: Patient seen with Dr. Tuttle and JOHN Sanchez. JOHN Sanchez premedicated patient for pain for wound care. s/p RLE intravascular lithotripsy R SFA and popliteal artery, excisional debridement R heel and R Achilles on 04/21/24. R dorsal foot ulcer
with dark purple tissue noted. R heel ulcer with pink and clotted blood and more necrotic tissue alone lateral edge. L heel and L Achilles wounds coil cleaner. Calf wounds mostly pink with some yellow slough (more yellow slough RLE than LLE). R medial
4th toe with deep dermal vs to subcutaneous layer ulcer, pink/yellow/scabbed. Suspect ulcer was present on admission and suspect r/t PAD. L dorsal great toe ulcer pink/yellow without drainage. Dressings change and bilateral [place] wraps were removed.
Confirmed with Dr. Tuttle no [place] wraps and continue local care. Sacral ulcer appears smaller than on admission. Inner buttocks/kavita skin with dermal opening r/t moisture, R posterior upper thigh with linear dermal skin tear suspect from diaper
usage. 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 R inner thigh with small linear abrasion suspect from diaper use. L groin dressing falling
off, small puncture wound noted. L groin open area cleansed with saline, silicone border foam applied. Patient incontinent of urine and large amount of soft brown mushy stool. Kavita care given, Miconazole and Calazime ointment applied to
kavita/buttocks/thigh affected areas, Miconazole, Calazime ointment and ABD pad applied to sacrum. Silicone border foam applied to R inner thigh. Used absorbant disposable incontinent pad (applied long ways) and added a folded incontinent brief in
front to avoid contracted leg dressing and heel relief boot contamination. TruVue lite boots reapplied. Patient turned to L semi side lying position with help from JOHN Sanchez. Discussed kavita skin with JOHN Sanchez and [facility] Chuckie.
[2024-04-24 11:29] LABS: Glucose - Point of Care 220 mg/dl (70-99)
[2024-04-24] MEDS: SENOKOT-S 1 TABLET PO ×2 (11:38→19:25)
[2024-04-24] MEDS: NOVOLOG FLEXPEN-MODERATE RESISTANCE 3 UNITS SC ×2 (11:39→17:37)
[2024-04-24] MEDS: FLUSH (NSS) 2 FLUSH IV (11:52)
--- NOTE | 2024-04-24 15:04 | CM ---
Addendum entered by Steff Vegas 04/24/24 16:16:
CM received update from wound care nurse, recommend air mattress at facility, no longer uses wound vac.
Original Note:
CM reviewed chart. Patient remains on Iv antibiotics, continues with wound care. Patient LTC resident at [facility]. CM will continue to follow for all discharge planning needs.
Plan; return to [facility] once medically stable.
Report: [phone]
--- NOTE | 2024-04-24 15:32 | W.PN.HOSP.TC ---
Today's Communication/Plan
-
Continue wound care
Antibiotics as per ID.
Assessment / Plan
Assessment / Plan
Impression:
Bilateral lower extremity trophic wounds with dry gangrene and acute on chronic cellulitis
Suspect severe PAD.
Altered mental status secondary to toxic metabolic encephalopathy.
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
Mild hyponatremia sodium 133
Other conditions:
CAD with history of PCI unknown details.
CHF unknown EF
Anemia of chronic disease.
IDDM.
Essential hypertension.
BPH.
Obstructive sleep apnea not compliant with CPAP
Chronic ambulatory dysfunction likely multifactorial (PAD, diabetic neuropathy, cognitive status)
Plan:
Bilateral lower extremity wounds with dry gangrene at the heels.
Suspect severe PAD.
Arterial ultrasound
1. As above, examination was limited by the patient's inability to remain motionless secondary to pain. Ankle brachial indices were unobtainable.
2. Right toe brachial index of 0.16. Right common femoral waveform is multiphasic, but somewhat dampened suggesting probable component of inflow disease. There are monophasic dampened waveforms throughout the superficial femoral and popliteal
arteries. No high-grade focal stenosis is identified sonographically.
3. Left toe brachial index of 0.07. The left common femoral waveform is monophasic, consistent with inflow disease. There is moderate to severe stenosis of the mid left superficial femoral artery.
X-ray with osteoporosis.
CTA Overall moderate diffuse atherosclerotic disease, as detailed above. The right superficial femoral artery contains moderate calcification with focal near complete occlusion distally. In the right lower leg, there is only two-vessel proximal
run off with nonvisualization of the majority of the anterior tibial artery and cut off of the peroneal artery just above the ankle.
Wound culture with MRSA and ESBL, later postOP LLE Cx with Pseudomonas, MSSA, Proteus- Switched to Merrem from Ertapenem on 04/19/24 (for pseudomonal coverage),
Afebrile and hemodynamically stable. Noted with rising WBC.
Sepsis ruled out
Discussed with vascular surgery
Difficult situation: Left lower extremity severe wound with tendon exposed with concern for osteomyelitis. Limb with less likely solvable at this point. Right lower extremity with proving vascular insufficiency may require intervention. If any
decision should be made in terms of consolidating procedure with consideration of a left AKA and attempt of revascularization on the right.
Infectious disease input appreciated.
MRI of the left lower extremity negative for osteomyelitis
Antibiotics transition from vancomycin/Zosyn to vancomycin/ertapenem
Status post arteriogram on 04/15 with left lower extremity I&D and revascularization
Status post Right lower extremity arteriogram, right SFA pop IV L and stent placement. Bilateral lower leg wound debridement
Podiatry consultation
Continue wound care including wound VAC
Altered mental status suspect toxic metabolic encephalopathy in the settings of acute infection.
resolved
Suspect underlying dementia vascular type.
CT head without acute abnormalities
Monitor closely.
CAD.
CHF preserved EF by history.
Essential hypertension
Current volume status compensated.
Check baseline ECG.
Echocardiogram preserved biventricular function with no significant valvular abnormalities
LDL 52
Continue current regimen including Coreg, Cardura, hydralazine
Continue aspirin
Continue furosemide with caution monitor renal function and volume status.
Mild hyponatremia volume loop diuretics.
Follow BMP.
IDDM with persistent hyperglycemia
Hemoglobin A1c 8.1
Lantus 20 at bedtime/NovoLog 7 AC
Continue basal bolus protocol with serial Accu-Cheks
Carbohydrate controlled diet
BPH
Monitor for retention.
On Flomax
Obstructive sleep apnea
Reportedly not compliant with CPAP.
Admission ABG pH 7.4 on room air 99%
Continue CPAP at bedtime.
Full code.
DVT prophylaxis Lovenox
I have spent at least 38min reviewing chart, test results, communication with consultants and direct patient care
Anticipated Discharge: > 48 hours
Subjective/Interval History
-
Date of Service: April 24, 2024
Objective Data
-
Vital Signs:
Vital Signs
Temp Pulse Resp BP Pulse Ox
98.4 F 85 17 140/67 98
04/24/24 08:07 04/24/24 08:07 04/24/24 08:07 04/24/24 08:07 04/24/24 08:07
I&O
04/23/24 04/24/24 04/25/24
06:59 06:59 06:59
Intake Total 720 / 720 900 / 900
Output Total 300 / 300 815 / 815 500 / 500
Balance 420 / 420 85 / 85 -500 / -500
Physical Exam
-
General: Well Developed and No Apparent Distress
HEENT: Normocephalic, Atraumatic and Moist Mucous Membranes
Respiratory: Clear to Auscultation
Cardiac: Regular Rhythm and S1/S2; Negative Murmur, Rub or Gallop
GI: Soft, Nontender, Nondistended and Normal Bowel Sounds; Negative Organomegaly
Rectal: Deferred by Provider
Musculoskeletal: No Clubbing, No Cyanosis and No Edema
Skin: Negative Rash
Neuro: Nonfocal/Grossly Intact
--- NOTE | 2024-04-24 15:50 | W.PN.ID1 ---
Date of Service
Date of Service: April 24, 2024
Today's Communication
DC antibiotics.
ID will sign off.
Assessment / Plan
# extensive ischemic wounds BLE
# Severe PAD
# Leukocytosis resolved
# DM
# MRSA colonized
- 04/04 RLE ankle surface wound swab MRSA and ESBL-Klebsiella .
- 04/15/24 s/p LLE and RLE endovascular intervention
s/p debridement of left heel pfeiffer to fascia and right pfeiffer and ankle wounds.
- OR left tendon cx MSSA, Pseudomonas, Proteus, GNR
-04/21/24 s/p RLE endovascular intervention
s/p left heel debridement to bone.
left heel bone cx neg x 48h. (04/10 MRI left foot - no osteo)
s/p right ankle wound I+D, right heel and Achilles wounds I+D, Achilles tendon exposed
- Left heel necrotic but no osteo, bone cx neg
- All wound beds are now clean.
- s/p 4 days Zosyn -> 8 days Ertapenem -> meropenem.
- Discontinue meropenem (d6)
- Discontinue Vancomycin (d20)
- Remains high risk for limb loss
ID will sign off
# Additional Past Medical History:
DM2
HTN
HLD
PAD
BLE lymphedema
Chronic BLE wounds follows at [facility]
CAD s/p stent
CHF
FRANCESCO
BPH
Chief Complaint
-: Other (Ischemic wounds)
Subjective / Review of Systems
Feels OK.
Vital Signs / Physical Exam
Vital Signs
Vital Signs
Temp Pulse Resp BP Pulse Ox
98.4 F 85 17 140/67 98
04/24/24 08:07 04/24/24 08:07 04/24/24 08:07 04/24/24 08:07 04/24/24 08:07
Physical Exam
Constitutional: No Acute Distress
Wound: Other (Reviewed today's wound photos: left heel wound necrotic, right ankle wound some necrosis, Right achilles tendon exposed clean, the rest of BLE wounds clean )
Objective Data
Lab Data
Lab Results
04/23/24 04:20
04/23/24 04:20
Estimated Creat Clear 104 ml/min 04/23/24 04:20
Lactic Acid 1.1 mmol/L (0.7-2.0) 04/04/24 16:51
Total Bilirubin 0.4 mg/dl (0.2-1.3) 04/21/24 07:28
AST 18 U/L (17-59) 04/21/24 07:28
ALT 16 U/L (0-50) 04/21/24 07:28
Alkaline Phosphatase 71 U/L (38-126) 04/21/24 07:28
Most recent labs reviewed.
Micro Results:
04/21/24 19:15 Tissue Culture - Preliminary
Heel - Left No Growth After 48 Hours
Gram Stain - Final
04/15/24 19:21 Tissue Culture - Final
Leg - Left S aureus-Methicillin Sensitive
Pseudomonas aeruginosa
Proteus mirabilis
Gram negative bacilli
Gram Stain - Final
04/04/24 21:49 Blood Culture - Final
Blood/Venous No Growth - Final Report
04/04/24 19:45 Blood Culture - Final
Blood/Venous No Growth - Final Report
04/04/24 19:45 Wound Culture - Final
Foot - Right Staph aureus MRSA
Klebsiella pneumoniae-ESBL
Gram Stain - Final
04/04/24 19:46 Urine Culture - Final
Urine NO GROWTH
04/05/24 04:34 MRSA Screen - Final
Nose Staph aureus MRSA
04/05/24 15:49 Influenza Types A & B (JEANNIE) - Final
Nasal Swab Negative for Influenza A & B, NAAT
Negative results must be combined with clinical observations
and patient history.
Nucleic Acid Amplification test (NAAT)performed on the
[employer] platform.
04/10/24 MRI LLE wo: No MRI evidence for acute osteomyelitis in the left hindfoot or midfoot. Multiple wounds in the distal left lower leg and ankle.
04/09/24 CTA: Overall moderate diffuse atherosclerotic disease, as detailed above. The right superficial femoral artery contains moderate calcification with focal near complete occlusion distally. In the right lower leg, there is only two-vessel
proximal run off with nonvisualization of the majority of the anterior tibial artery and cut off of the peroneal artery just above the ankle.
Care Review
Plan reviewed with: Nurse (Wound JOHN Gant.)
[2024-04-24 16:08] VITALS: BP 139/60
--- NOTE | 2024-04-24 16:16 | WOUNDNOTE ---
[facility] RN note: Updated CM Steff Vegas re: recommend air mattress at SNF and that we are not using a wound vac on patient.
[2024-04-24 16:47] LABS: Glucose - Point of Care 204 mg/dl (70-99)
[2024-04-24] MEDS: LOVENOX 40 MG SC (17:40)
[2024-04-24] MEDS: LIPITOR 10 MG PO (17:42)
[2024-04-24] MEDS: MERREM IV (18:22)
[2024-04-24 21:44] LABS: Glucose - Point of Care 224 mg/dl (70-99)
[2024-04-24] MEDS: CARDURA 2 MG PO (21:44)
[2024-04-24] MEDS: MELATONIN 5 MG PO (21:44)
[2024-04-24] MEDS: LANTUS 0.2 UNITS SC (21:44)
[2024-04-24 23:45] VITALS: BP 106/44
[2024-04-25 06:00] VITALS: BMI 32.0
[2024-04-25 07:00] VITALS: BP 133/75
[2024-04-25 07:16] LABS: Glucose - Point of Care 206 mg/dl (70-99)
[2024-04-25] MEDS: NOVOLOG FLEXPEN 7 UNITS SC ×2 (08:26→13:19)
[2024-04-25] MEDS: NOVOLOG FLEXPEN-MODERATE RESISTANCE 3 UNITS SC (08:26)
[2024-04-25] MEDS: APRESOLINE 10 MG PO ×2 (08:27→17:48)
[2024-04-25] MEDS: ASPIR LOW (ENTERIC COATED) 81 MG PO (08:27)
[2024-04-25] MEDS: MAG-TAB SR 84 MG PO ×2 (08:27→21:06)
[2024-04-25] MEDS: FLOMAX 0.4 MG PO (08:27)
[2024-04-25] MEDS: PROTONIX 40 MG PO (08:27)
[2024-04-25] MEDS: PLAVIX 75 MG PO (08:28)
[2024-04-25] MEDS: LASIX 40 MG PO (08:28)
[2024-04-25] MEDS: COREG 25 MG PO ×2 (08:28→21:05)
[2024-04-25] MEDS: MIRALAX 17 GRAMS PO (08:29)
[2024-04-25] MEDS: DESENEX/MITRAZOL/ZEASORB 1 APPLIC TOPICAL ×2 (08:30→21:08)
[2024-04-25] MEDS: DAKIN'S SOLUTION 0.125% 1/4 STRENGTH 473 ML TOPICAL (08:31)
[2024-04-25] MEDS: LOTRIMIN 1% CREAM 1 APPLIC TOPICAL ×2 (08:32→21:07)
[2024-04-25] MEDS: SENOKOT-S 1 TABLET PO ×2 (08:56→21:06)
--- NOTE | 2024-04-25 11:19 | CM ---
Chart reviewed and patient to return to [facility] when stable.
[facility]
Report: [phone]
[2024-04-25 12:33] LABS: Glucose - Point of Care 328 mg/dl (70-99)
[2024-04-25] MEDS: DILAUDID IV (12:53)
[2024-04-25] MEDS: NOVOLOG FLEXPEN-MODERATE RESISTANCE 7 UNITS SC (13:19)
[2024-04-25] MEDS: DILAUDID 0.5 MG IV (13:21)
[2024-04-25 15:00] VITALS: BP 121/53
--- NOTE | 2024-04-25 16:06 | W.PN.HOSP.TC ---
Today's Communication/Plan
-
Observe off antibiotics
Monitor temperature curve and WBC
Wound care including wound VAC.
Adjust insulin regimen
Discussed with nursing and daughter at the bedside
Assessment / Plan
Assessment / Plan
Impression:
Bilateral lower extremity trophic wounds with dry gangrene and acute on chronic cellulitis
Suspect severe PAD.
Altered mental status secondary to toxic metabolic encephalopathy.
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
Mild hyponatremia sodium 133
Other conditions:
CAD with history of PCI unknown details.
CHF unknown EF
Anemia of chronic disease.
IDDM.
Essential hypertension.
BPH.
Obstructive sleep apnea not compliant with CPAP
Chronic ambulatory dysfunction likely multifactorial (PAD, diabetic neuropathy, cognitive status)
Plan:
Bilateral lower extremity wounds with dry gangrene at the heels.
Suspect severe PAD.
Arterial ultrasound
1. As above, examination was limited by the patient's inability to remain motionless secondary to pain. Ankle brachial indices were unobtainable.
2. Right toe brachial index of 0.16. Right common femoral waveform is multiphasic, but somewhat dampened suggesting probable component of inflow disease. There are monophasic dampened waveforms throughout the superficial femoral and popliteal
arteries. No high-grade focal stenosis is identified sonographically.
3. Left toe brachial index of 0.07. The left common femoral waveform is monophasic, consistent with inflow disease. There is moderate to severe stenosis of the mid left superficial femoral artery.
X-ray with osteoporosis.
CTA Overall moderate diffuse atherosclerotic disease, as detailed above. The right superficial femoral artery contains moderate calcification with focal near complete occlusion distally. In the right lower leg, there is only two-vessel proximal
run off with nonvisualization of the majority of the anterior tibial artery and cut off of the peroneal artery just above the ankle.
Wound culture with MRSA and ESBL, later postOP LLE Cx with Pseudomonas, MSSA, Proteus- Switched to Merrem from Ertapenem on 04/19/24 (for pseudomonal coverage),
Afebrile and hemodynamically stable. Noted with rising WBC.
Sepsis ruled out
Discussed with vascular surgery
Difficult situation: Left lower extremity severe wound with tendon exposed with concern for osteomyelitis. Limb with less likely solvable at this point. Right lower extremity with proving vascular insufficiency may require intervention. If any
decision should be made in terms of consolidating procedure with consideration of a left AKA and attempt of revascularization on the right.
Infectious disease input appreciated.
MRI of the left lower extremity negative for osteomyelitis
Antibiotics transition from vancomycin/Zosyn to vancomycin/ertapenem
Status post arteriogram on 04/15 with left lower extremity I&D and revascularization
Status post Right lower extremity arteriogram, right SFA pop IV L and stent placement. Bilateral lower leg wound debridement
Podiatry consultation appreciated
Continue wound care including wound VAC
Completed antibiotic course on 04/24. Monitor closely including temperature curve and WBC.
Altered mental status suspect toxic metabolic encephalopathy in the settings of acute infection.
resolved
Suspect underlying dementia vascular type.
CT head without acute abnormalities
Monitor closely.
CAD.
CHF preserved EF by history.
Essential hypertension
Current volume status compensated.
Check baseline ECG.
Echocardiogram preserved biventricular function with no significant valvular abnormalities
LDL 52
Continue current regimen including Coreg, Cardura, hydralazine
Continue aspirin
Continue furosemide with caution monitor renal function and volume status.
Mild hyponatremia volume loop diuretics.
Follow BMP.
IDDM with persistent hyperglycemia
Hemoglobin A1c 8.1
Hyperglycemic.
Increase insulin Lantus to 25 at bedtime/NovoLog 9 AC.
Continue basal bolus protocol with serial Accu-Cheks
Carbohydrate controlled diet
BPH
Monitor for retention.
On Flomax
Obstructive sleep apnea
Reportedly not compliant with CPAP.
Admission ABG pH 7.4 on room air 99%
Continue CPAP at bedtime.
Full code.
DVT prophylaxis Lovenox
I have spent at least 38min reviewing chart, test results, communication with consultants and direct patient care
Anticipated Discharge: > 48 hours
Subjective/Interval History
-
Date of Service: April 25, 2024
Objective Data
-
Labs:
Laboratory Results
04/25/24
14:52
WBC Pending
Hgb Pending
Hct Pending
Plt Count Pending
Vital Signs:
Vital Signs
Temp Pulse Resp BP Pulse Ox
98.9 F 76 20 121/53 99
04/25/24 15:00 04/25/24 15:00 04/25/24 15:00 04/25/24 15:00 04/25/24 15:00
I&O
04/24/24 04/25/24 04/26/24
06:59 06:59 06:59
Intake Total 900 / 900 1050 / 1050
Output Total 815 / 815 500 / 500
Balance 85 / 85 550 / 550
Physical Exam
-
General: Well Developed and No Apparent Distress
HEENT: Normocephalic, Atraumatic and Moist Mucous Membranes
Respiratory: Clear to Auscultation
Cardiac: Regular Rhythm and S1/S2; Negative Murmur, Rub or Gallop
GI: Soft, Nontender, Nondistended and Normal Bowel Sounds; Negative Organomegaly
Rectal: Deferred by Provider
Musculoskeletal: No Clubbing, No Cyanosis and No Edema
Skin: Negative Rash
Neuro: Nonfocal/Grossly Intact
[2024-04-25 17:14] LABS: Glucose - Point of Care 140 mg/dl (70-99)
[2024-04-25] MEDS: LIPITOR 10 MG PO (17:48)
[2024-04-25] MEDS: NOVOLOG FLEXPEN 9 UNITS SC (17:50)
[2024-04-25] MEDS: NOVOLOG FLEXPEN-MODERATE RESISTANCE SC (17:50)
[2024-04-25] MEDS: LOVENOX 40 MG SC (17:51)
[2024-04-25 18:47] LABS: % Basophils 0.7 % (0-2); % Eosinophils 5.4 % (0-6); % Immature Granulocytes 0.7 % (0-0.5); % Lymphocytes 17.7 % (20.5-51.1); % Monocytes 8.3 % (1.7-9.3); % Neutrophils 67.2 % (42.2-75.2); Absolute Basophils 0.1 10^3/uL (0-0.2); Absolute Eosinophils 0.7 10^3/uL (0-0.7); Absolute Immature Granulocytes 0.1 10^3/uL (0-0.05); Absolute Lymphocytes 2.4 10^3/uL (1.2-3.4); Absolute Monocytes 1.1 10^3/uL (0.1-0.6); Absolute Neutrophils 9.2 10^3/uL (1.4-6.5); Hematocrit 27.1 % (39.0-52.0); Hemoglobin 9.3 g/dL (13.0-18.0); Mean Corp Hgb Conc. 34.3 g/dL (33.0-37.0); Mean Corpuscular Hgb 29.9 pg (27.0-31.0); Mean Corpuscular Volume 87.1 fL (80.0-94.0); Mean Platelet Volume 9.2 fL (7.4-10.4); Nucleated Red Blood Cells % 0 % (-); Platelet Count 412 10^3/uL (130-400); Red Blood Cell Count 3.11 10^6/uL (4.70-6.10); Red Cell Dist. Width 14.4 % (11.5-14.5); White Blood Cell Count 13.7 10^3/uL (4.8-10.8)
[2024-04-25 19:00] VITALS: BP 140/62
[2024-04-25 21:29] LABS: Glucose - Point of Care 128 mg/dl (70-99)
[2024-04-25 23:00] VITALS: BP 134/49
[2024-04-25 23:52] LABS: Glucose - Point of Care 192 mg/dl (70-99)
[2024-04-26] MEDS: MELATONIN 5 MG PO (00:13)
[2024-04-26] MEDS: CARDURA 2 MG PO (00:18)
[2024-04-26] MEDS: APRESOLINE 10 MG PO (00:18)
[2024-04-26] MEDS: LANTUS 0.25 UNITS SC (00:19)
[2024-04-26 06:00] VITALS: BMI 31.8
[2024-04-26 07:00] VITALS: BP 111/69
[2024-04-26 07:32] LABS: Glucose - Point of Care 156 mg/dl (70-99)
[2024-04-26] MEDS: COREG PO (10:10)
[2024-04-26] MEDS: LASIX PO (10:10)
[2024-04-26] MEDS: APRESOLINE PO ×2 (10:10→16:01)
[2024-04-26] MEDS: ASPIR LOW (ENTERIC COATED) 81 MG PO (10:11)
[2024-04-26] MEDS: PROTONIX 40 MG PO (10:11)
[2024-04-26] MEDS: PLAVIX 75 MG PO (10:12)
[2024-04-26] MEDS: SENOKOT-S 1 TABLET PO ×2 (10:12→22:19)
[2024-04-26] MEDS: MAG-TAB SR 84 MG PO ×2 (10:12→22:20)
[2024-04-26] MEDS: NOVOLOG FLEXPEN-MODERATE RESISTANCE 1 UNITS SC ×2 (10:13→18:09)
[2024-04-26] MEDS: MIRALAX 17 GRAMS PO (10:13)
[2024-04-26] MEDS: NOVOLOG FLEXPEN 9 UNITS SC ×2 (10:14→11:53)
[2024-04-26] MEDS: DESENEX/MITRAZOL/ZEASORB 1 APPLIC TOPICAL ×2 (10:15→22:20)
[2024-04-26] MEDS: FLOMAX 0.4 MG PO (10:18)
[2024-04-26] MEDS: TYLENOL 650 MG PO (10:19)
[2024-04-26] MEDS: DAKIN'S SOLUTION 0.125% 1/4 STRENGTH TOPICAL ×2 (10:20→16:01)
[2024-04-26] MEDS: LOTRIMIN 1% CREAM TOPICAL ×2 (10:20→16:00)
[2024-04-26 11:50] LABS: Glucose - Point of Care 301 mg/dl (70-99)
[2024-04-26] MEDS: NOVOLOG FLEXPEN-MODERATE RESISTANCE 7 UNITS SC (11:53)
--- NOTE | 2024-04-26 14:01 | W.PN.HOSP.TC ---
Today's Communication/Plan
-
Observe off antibiotics, although WBC is increasing again, notified infectious disease
Monitor temperature curve - no fever in past 24 hours
Wound care including wound VAC.
Adjusted insulin regimen
Discussed with nursing
Assessment / Plan
Assessment / Plan
Physical Exam
General: Well Developed and No Apparent Distress
HEENT: Normocephalic, Atraumatic and Moist Mucous Membranes
Respiratory: Clear to Auscultation
Cardiac: Regular Rhythm and S1/S2
GI: Soft, Nontender, Nondistended and Normal Bowel Sounds
Musculoskeletal: No Cyanosis and No Edema
Skin: Negative Rash
Neuro: Nonfocal/Grossly Intact
Impression:
Bilateral lower extremity trophic wounds with dry gangrene and acute on chronic cellulitis
Suspect severe PAD.
Altered mental status secondary to toxic metabolic encephalopathy.
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
Mild hyponatremia sodium 133
Other conditions:
CAD with history of PCI unknown details.
CHF unknown EF
Anemia of chronic disease.
IDDM.
Essential hypertension.
BPH.
Obstructive sleep apnea not compliant with CPAP
Chronic ambulatory dysfunction likely multifactorial (PAD, diabetic neuropathy, cognitive status)
Plan:
Bilateral lower extremity wounds with dry gangrene at the heels.
Suspect severe PAD.
Arterial ultrasound
1. As above, examination was limited by the patient's inability to remain motionless secondary to pain. Ankle brachial indices were unobtainable.
2. Right toe brachial index of 0.16. Right common femoral waveform is multiphasic, but somewhat dampened suggesting probable component of inflow disease. There are monophasic dampened waveforms throughout the superficial femoral and popliteal
arteries. No high-grade focal stenosis is identified sonographically.
3. Left toe brachial index of 0.07. The left common femoral waveform is monophasic, consistent with inflow disease. There is moderate to severe stenosis of the mid left superficial femoral artery.
X-ray with osteoporosis.
CTA Overall moderate diffuse atherosclerotic disease, as detailed above. The right superficial femoral artery contains moderate calcification with focal near complete occlusion distally. In the right lower leg, there is only two-vessel proximal
run off with nonvisualization of the majority of the anterior tibial artery and cut off of the peroneal artery just above the ankle.
Wound culture with MRSA and ESBL, later postOP LLE Cx with Pseudomonas, MSSA, Proteus- Switched to Merrem from Ertapenem on 04/19/24 (for pseudomonal coverage),
Afebrile and hemodynamically stable. Noted with rising WBC.
Sepsis ruled out
Dr. Sutton discussed with vascular surgery
Difficult situation: Left lower extremity severe wound with tendon exposed with concern for osteomyelitis. Limb with less likely solvable at this point. Right lower extremity with proving vascular insufficiency may require intervention. If any
decision should be made in terms of consolidating procedure with consideration of a left AKA and attempt of revascularization on the right.
Infectious disease input appreciated.
MRI of the left lower extremity negative for osteomyelitis
Antibiotics transition from vancomycin/Zosyn to vancomycin/ertapenem
Status post arteriogram on 04/15 with left lower extremity I&D and revascularization
Status post Right lower extremity arteriogram, right SFA pop IV L and stent placement. Bilateral lower leg wound debridement
Podiatry consultation appreciated
Continue wound care including wound VAC
Completed antibiotic course on 04/24. Monitor closely including temperature curve and WBC--> WBC increasing again on 04/26/24 but no fever, continue to watch off antibiotics, notified infectious disease
Altered mental status suspect toxic metabolic encephalopathy in the settings of acute infection.
resolved
Suspect underlying dementia vascular type.
CT head without acute abnormalities
Monitor closely.
CAD.
CHF preserved EF by history.
Essential hypertension
Current volume status compensated.
Check baseline ECG.
Echocardiogram preserved biventricular function with no significant valvular abnormalities
LDL 52
Continue current regimen including Coreg, Cardura, hydralazine
Continue aspirin
Continue furosemide with caution monitor renal function and volume status.
Mild hyponatremia volume loop diuretics.
Follow BMP.
IDDM with persistent hyperglycemia
Hemoglobin A1c 8.1
Hyperglycemic.
Increase insulin Lantus to 25-->26 at bedtime/NovoLog 9-->11 AC.
Continue basal bolus protocol with serial Accu-Cheks
Carbohydrate controlled diet
BPH
Monitor for retention.
On Flomax
Obstructive sleep apnea
Reportedly not compliant with CPAP.
Admission ABG pH 7.4 on room air 99%
Continue CPAP at bedtime.
Full code.
DVT prophylaxis Lovenox
Anticipated Discharge: > 48 hours
Subjective/Interval History
-
Date of Service: April 26, 2024
Patient was seen and examined. He stated that he has no new symptoms or complaints.
Objective Data
-
Vital Signs:
Vital Signs
Temp Pulse Resp BP Pulse Ox
99.3 F 84 18 108/70 97
04/26/24 07:00 04/26/24 10:10 04/26/24 07:00 04/26/24 10:10 04/26/24 07:00
I&O
04/25/24 04/26/24 04/27/24
06:59 06:59 06:59
Intake Total 1050 / 1050 120 / 120
Output Total 500 / 500 425 / 425
Balance 550 / 550 -305 / -305
[2024-04-26 15:00] VITALS: BP 92/50
[2024-04-26 17:02] LABS: Glucose - Point of Care 177 mg/dl (70-99)
[2024-04-26] MEDS: NOVOLOG FLEXPEN 11 UNITS SC (18:09)
[2024-04-26] MEDS: LIPITOR 10 MG PO (18:11)
[2024-04-26] MEDS: LOVENOX 40 MG SC (18:11)
[2024-04-26 21:37] LABS: Glucose - Point of Care 254 mg/dl (70-99)
[2024-04-26] MEDS: COREG 25 MG PO (22:19)
[2024-04-26] MEDS: LOTRIMIN 1% CREAM 1 APPLIC TOPICAL (22:21)
[2024-04-26] MEDS: LANTUS 0.26 UNITS SC (22:27)
[2024-04-26 23:10] VITALS: BP 142/73
[2024-04-27] MEDS: MELATONIN 5 MG PO ×2 (00:35→22:10)
[2024-04-27] MEDS: CARDURA 2 MG PO ×2 (00:39→22:10)
[2024-04-27] MEDS: APRESOLINE 10 MG PO ×4 (00:39→22:10)
[2024-04-27 06:00] VITALS: BMI 31.8
[2024-04-27 07:30] VITALS: BP 107/52
[2024-04-27 07:58] LABS: Glucose - Point of Care 171 mg/dl (70-99)
--- NOTE | 2024-04-27 08:07 | PTCARENOTE ---
Pt refused wound care this morning. Pt yelled 'No, wound care.' Pt reported 'my doctor said I could do what I want.' Pt educated of the importance of wound care to promote healing of wounds. Pt continued to refuse wound care. Pt educated that pain
medication would be administered prior to wound care to control pain during wound care. Pt continued to refuse wound care. AM RN updated on refusal of wound care. Plan of care ongoing.
[2024-04-27] MEDS: MAG-TAB SR 84 MG PO ×2 (09:07→22:10)
[2024-04-27] MEDS: COREG 25 MG PO ×2 (09:07→22:09)
[2024-04-27] MEDS: NOVOLOG FLEXPEN-MODERATE RESISTANCE SC (09:07)
[2024-04-27] MEDS: NOVOLOG FLEXPEN 11 UNITS SC ×3 (09:07→17:14)
[2024-04-27] MEDS: PROTONIX 40 MG PO (09:08)
[2024-04-27] MEDS: ASPIR LOW (ENTERIC COATED) 81 MG PO (09:08)
[2024-04-27] MEDS: PLAVIX 75 MG PO (09:08)
[2024-04-27] MEDS: SENOKOT-S 1 TABLET PO ×2 (09:08→22:10)
[2024-04-27] MEDS: FLOMAX 0.4 MG PO (09:08)
[2024-04-27] MEDS: LASIX 40 MG PO (09:08)
[2024-04-27] MEDS: MIRALAX 17 GRAMS PO (09:09)
[2024-04-27] MEDS: DESENEX/MITRAZOL/ZEASORB TOPICAL (09:12)
[2024-04-27] MEDS: DAKIN'S SOLUTION 0.125% 1/4 STRENGTH TOPICAL (09:12)
[2024-04-27 10:48] VITALS: BP 147/57
[2024-04-27 12:18] LABS: Glucose - Point of Care 234 mg/dl (70-99)
[2024-04-27] MEDS: NOVOLOG FLEXPEN-MODERATE RESISTANCE 3 UNITS SC ×2 (12:53→17:14)
[2024-04-27] MEDS: LOTRIMIN 1% CREAM 1 APPLIC TOPICAL (12:53)
[2024-04-27 15:30] VITALS: BP 126/38
[2024-04-27 16:21] LABS: Glucose - Point of Care 213 mg/dl (70-99)
--- NOTE | 2024-04-27 16:48 | W.PN.HOSP.TC ---
Today's Communication/Plan
-
Observe off antibiotics, although WBC increase this weekend, notified infectious disease
Monitor temperature curve - no fever this weekend so far
Wound care including wound VAC.
Increased insulin regimen for better control
Discussed with nursing
Assessment / Plan
Assessment / Plan
Physical Exam
General: Well Developed and No Apparent Distress
HEENT: Normocephalic, Atraumatic and Moist Mucous Membranes
Respiratory: Clear to Auscultation
Cardiac: Regular Rhythm and S1/S2
GI: Soft, Nontender, Nondistended and Normal Bowel Sounds
Musculoskeletal: No Cyanosis and No Edema
Skin: Negative Rash
Neuro: Nonfocal/Grossly Intact
Impression:
Bilateral lower extremity trophic wounds with dry gangrene and acute on chronic cellulitis
Suspect severe PAD.
Altered mental status secondary to toxic metabolic encephalopathy.
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
Mild hyponatremia sodium 133
Other conditions:
CAD with history of PCI unknown details.
CHF unknown EF
Anemia of chronic disease.
IDDM.
Essential hypertension.
BPH.
Obstructive sleep apnea not compliant with CPAP
Chronic ambulatory dysfunction likely multifactorial (PAD, diabetic neuropathy, cognitive status)
Plan:
Bilateral lower extremity wounds with dry gangrene at the heels.
Suspect severe PAD.
Arterial ultrasound
1. As above, examination was limited by the patient's inability to remain motionless secondary to pain. Ankle brachial indices were unobtainable.
2. Right toe brachial index of 0.16. Right common femoral waveform is multiphasic, but somewhat dampened suggesting probable component of inflow disease. There are monophasic dampened waveforms throughout the superficial femoral and popliteal
arteries. No high-grade focal stenosis is identified sonographically.
3. Left toe brachial index of 0.07. The left common femoral waveform is monophasic, consistent with inflow disease. There is moderate to severe stenosis of the mid left superficial femoral artery.
X-ray with osteoporosis.
CTA Overall moderate diffuse atherosclerotic disease, as detailed above. The right superficial femoral artery contains moderate calcification with focal near complete occlusion distally. In the right lower leg, there is only two-vessel proximal
run off with nonvisualization of the majority of the anterior tibial artery and cut off of the peroneal artery just above the ankle.
Wound culture with MRSA and ESBL, later postOP LLE Cx with Pseudomonas, MSSA, Proteus- Switched to Merrem from Ertapenem on 04/19/24 (for pseudomonal coverage),
Afebrile and hemodynamically stable. Noted with rising WBC.
Sepsis ruled out
Dr. Sutton discussed with vascular surgery
Difficult situation: Left lower extremity severe wound with tendon exposed with concern for osteomyelitis. Limb with less likely solvable at this point. Right lower extremity with proving vascular insufficiency may require intervention. If any
decision should be made in terms of consolidating procedure with consideration of a left AKA and attempt of revascularization on the right.
Infectious disease input appreciated.
MRI of the left lower extremity negative for osteomyelitis
Antibiotics transition from vancomycin/Zosyn to vancomycin/ertapenem
Status post arteriogram on 04/15 with left lower extremity I&D and revascularization
Status post Right lower extremity arteriogram, right SFA pop IV L and stent placement. Bilateral lower leg wound debridement
Podiatry consultation appreciated
Continue wound care including wound VAC
Completed antibiotic course on 04/24. Monitor closely including temperature curve and WBC--> WBC increasing again this weekend but no fever, continue to watch off antibiotics, notified infectious disease
Altered mental status suspect toxic metabolic encephalopathy in the settings of acute infection.
resolved
Suspect underlying dementia vascular type.
CT head without acute abnormalities
Monitor closely.
CAD.
CHF preserved EF by history.
Essential hypertension
Current volume status compensated.
Check baseline ECG.
Echocardiogram preserved biventricular function with no significant valvular abnormalities
LDL 52
Continue current regimen including Coreg, Cardura, hydralazine
Continue aspirin
Continue furosemide with caution monitor renal function and volume status.
Mild hyponatremia volume loop diuretics.
Follow BMP.
IDDM with persistent hyperglycemia
Hemoglobin A1c 8.1
Hyperglycemic.
Increase insulin Lantus to 25-->26-->28 at bedtime/NovoLog 9-->11-->13 AC.
Continue basal bolus protocol with serial Accu-Cheks
Carbohydrate controlled diet
BPH
Monitor for retention.
On Flomax
Obstructive sleep apnea
Reportedly not compliant with CPAP.
Admission ABG pH 7.4 on room air 99%
Continue CPAP at bedtime.
Full code.
DVT prophylaxis Lovenox
Anticipated Discharge: 24 - 48 hours
Subjective/Interval History
-
Date of Service: April 27, 2024
Patient was seen and examined. He denied any new symptoms or complaints.
Objective Data
-
Labs:
Laboratory Results
04/27/24
16:47
WBC Pending
Hgb Pending
Hct Pending
Plt Count Pending
Sodium Pending
Potassium Pending
Chloride Pending
Carbon Dioxide Pending
BUN Pending
Creatinine Pending
Glucose Pending
Calcium Pending
Vital Signs:
Vital Signs
Temp Pulse Resp BP Pulse Ox
97.8 F 83 18 147/57 95
04/27/24 07:30 04/27/24 10:48 04/27/24 07:30 04/27/24 10:48 04/27/24 07:30
I&O
04/26/24 04/27/24 04/28/24
06:59 06:59 06:59
Intake Total 120 / 120 1140 / 1140
Output Total 425 / 425
Balance -305 / -305 1140 / 1140
[2024-04-27] MEDS: LIPITOR 10 MG PO (17:13)
[2024-04-27] MEDS: LOVENOX 40 MG SC (17:13)
[2024-04-27] MEDS: DILAUDID 0.5 MG IV (18:23)
[2024-04-27 21:22] LABS: Glucose - Point of Care 130 mg/dl (70-99)
[2024-04-27] MEDS: LANTUS 0.28 UNITS SC (22:10)
[2024-04-27] MEDS: LOTRIMIN 1% CREAM TOPICAL ×2 (22:19→22:30)
[2024-04-27] MEDS: DESENEX/MITRAZOL/ZEASORB 1 APPLIC TOPICAL (22:20)
[2024-04-27 23:52] VITALS: BP 150/55
[2024-04-28 06:00] VITALS: BMI 31.5
[2024-04-28 07:00] VITALS: BP 110/41
[2024-04-28 07:44] LABS: Glucose - Point of Care 100 mg/dl (70-99)
--- NOTE | 2024-04-28 08:00 | PTCARENOTE ---
Pt refused HS and AM attempts at wound care. Pt educated on importance and significance of wound care. Pt states, 'yes I know very important.' When pt asked if wound care could be performed pt states, 'no it was done yesterday.' Pt educated that the
dressings had drainage and needed to be changed pt refused. Pt offered administration of pain meds prior to wound care pt continues to refuse. Oncoming daysmdft nurse made aware.
[2024-04-28] MEDS: NOVOLOG FLEXPEN-MODERATE RESISTANCE SC ×3 (09:14→16:51)
[2024-04-28] MEDS: DILAUDID 0.5 MG IV ×2 (09:15→16:03)
[2024-04-28] MEDS: NOVOLOG FLEXPEN 13 UNITS SC ×3 (09:16→18:26)
[2024-04-28] MEDS: APRESOLINE 10 MG PO ×2 (09:17→18:25)
[2024-04-28] MEDS: PROTONIX 40 MG PO (09:23)
[2024-04-28] MEDS: ASPIR LOW (ENTERIC COATED) 81 MG PO (09:24)
[2024-04-28] MEDS: COREG 25 MG PO ×2 (09:24→22:03)
[2024-04-28] MEDS: FLOMAX 0.4 MG PO (09:24)
[2024-04-28] MEDS: LASIX 40 MG PO (09:24)
[2024-04-28] MEDS: MAG-TAB SR 84 MG PO ×2 (09:24→22:02)
[2024-04-28] MEDS: PLAVIX 75 MG PO (09:25)
--- NOTE | 2024-04-28 11:03 | CM ---
patient care manager reviewed patient's chart and met with patient and patient resides at [facility] and plan is for patient to return to [facility] when stable.
[facility]
Report: [phone]
[2024-04-28 11:48] LABS: Glucose - Point of Care 140 mg/dl (70-99)
[2024-04-28] MEDS: MIRALAX PO (12:18)
[2024-04-28] MEDS: SENOKOT-S PO (12:19)
[2024-04-28] MEDS: DAKIN'S SOLUTION 0.125% 1/4 STRENGTH 473 ML TOPICAL (12:59)
[2024-04-28] MEDS: LOTRIMIN 1% CREAM 1 APPLIC TOPICAL ×2 (12:59→22:07)
[2024-04-28] MEDS: DESENEX/MITRAZOL/ZEASORB 1 APPLIC TOPICAL ×2 (13:01→22:07)
[2024-04-28 14:31] LABS: % Basophils 0.5 % (0-2); % Eosinophils 4.3 % (0-6); % Immature Granulocytes 0.7 % (0-0.5); % Monocytes 7.1 % (1.7-9.3); % Neutrophils 69.4 % (42.2-75.2); Absolute Basophils 0.1 10^3/uL (0-0.2); Absolute Eosinophils 0.6 10^3/uL (0-0.7); Absolute Immature Granulocytes 0.1 10^3/uL (0-0.05); Absolute Lymphocytes 2.4 10^3/uL (1.2-3.4); Absolute Neutrophils 9.3 10^3/uL (1.4-6.5); Hematocrit 27.8 % (39.0-52.0); Hemoglobin 9.3 g/dL (13.0-18.0); Mean Corp Hgb Conc. 33.5 g/dL (33.0-37.0); Mean Corpuscular Hgb 30.1 pg (27.0-31.0); Mean Platelet Volume 9.1 fL (7.4-10.4); Nucleated Red Blood Cells % 0 % (-); Platelet Count 490 10^3/uL (130-400); Red Blood Cell Count 3.09 10^6/uL (4.70-6.10); Red Cell Dist. Width 14.8 % (11.5-14.5); White Blood Cell Count 13.4 10^3/uL (4.8-10.8)
[2024-04-28 14:54] LABS: Blood Urea Nitrogen 18 mg/dl (9-20); Calcium 9.2 mg/dl (8.4-10.2); Carbon Dioxide 30 mmol/L (22-30); Chloride 95 mmol/L (98-107); Estimated Creatinine Clearance 103 ml/min; Glucose 87 mg/dl (70-99); Sodium 133 mmol/L (135-145); eGFR > 60.00
[2024-04-28 15:00] VITALS: BP 131/71
[2024-04-28] MEDS: TYLENOL 650 MG PO (16:03)
[2024-04-28 16:37] LABS: Glucose - Point of Care 110 mg/dl (70-99)
--- NOTE | 2024-04-28 17:12 | W.PN.HOSP.TC ---
Today's Communication/Plan
-
Wound care.
Monitor for recurrent fever.
Follow-up WBC
Monitor off antibiotics
Assessment / Plan
Assessment / Plan
Physical Exam
General: Well Developed and No Apparent Distress
HEENT: Normocephalic, Atraumatic and Moist Mucous Membranes
Respiratory: Clear to Auscultation
Cardiac: Regular Rhythm and S1/S2
GI: Soft, Nontender, Nondistended and Normal Bowel Sounds
Musculoskeletal: No Cyanosis and No Edema
Skin: Negative Rash
Neuro: Nonfocal/Grossly Intact
Impression:
Bilateral lower extremity trophic wounds with dry gangrene and acute on chronic cellulitis
Suspect severe PAD.
Altered mental status secondary to toxic metabolic encephalopathy.
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
Mild hyponatremia sodium 133
Other conditions:
CAD with history of PCI unknown details.
CHF unknown EF
Anemia of chronic disease.
IDDM.
Essential hypertension.
BPH.
Obstructive sleep apnea not compliant with CPAP
Chronic ambulatory dysfunction likely multifactorial (PAD, diabetic neuropathy, cognitive status)
Plan:
Bilateral lower extremity wounds with dry gangrene at the heels.
Suspect severe PAD.
Arterial ultrasound
1. As above, examination was limited by the patient's inability to remain motionless secondary to pain. Ankle brachial indices were unobtainable.
2. Right toe brachial index of 0.16. Right common femoral waveform is multiphasic, but somewhat dampened suggesting probable component of inflow disease. There are monophasic dampened waveforms throughout the superficial femoral and popliteal
arteries. No high-grade focal stenosis is identified sonographically.
3. Left toe brachial index of 0.07. The left common femoral waveform is monophasic, consistent with inflow disease. There is moderate to severe stenosis of the mid left superficial femoral artery.
X-ray with osteoporosis.
CTA Overall moderate diffuse atherosclerotic disease, as detailed above. The right superficial femoral artery contains moderate calcification with focal near complete occlusion distally. In the right lower leg, there is only two-vessel proximal
run off with nonvisualization of the majority of the anterior tibial artery and cut off of the peroneal artery just above the ankle.
Wound culture with MRSA and ESBL, later postOP LLE Cx with Pseudomonas, MSSA, Proteus- Switched to Merrem from Ertapenem on 04/19/24 (for pseudomonal coverage),
Afebrile and hemodynamically stable. Noted with rising WBC.
Sepsis ruled out
Dr. Sutton discussed with vascular surgery
Difficult situation: Left lower extremity severe wound with tendon exposed with concern for osteomyelitis. Limb with less likely solvable at this point. Right lower extremity with proving vascular insufficiency may require intervention. If any
decision should be made in terms of consolidating procedure with consideration of a left AKA and attempt of revascularization on the right.
Infectious disease input appreciated.
MRI of the left lower extremity negative for osteomyelitis
Antibiotics transition from vancomycin/Zosyn to vancomycin/ertapenem
Status post arteriogram on 04/15 with left lower extremity I&D and revascularization
Status post Right lower extremity arteriogram, right SFA pop IV L and stent placement. Bilateral lower leg wound debridement
Podiatry consultation appreciated
Continue wound care including wound VAC
Completed antibiotic course on 04/24. Monitor closely including temperature curve and WBC--> WBC increasing again this weekend but no fever, continue to watch off antibiotics, notified infectious disease
Altered mental status suspect toxic metabolic encephalopathy in the settings of acute infection.
resolved
Suspect underlying dementia vascular type.
CT head without acute abnormalities
Monitor closely.
CAD.
CHF preserved EF by history.
Essential hypertension
Current volume status compensated.
Check baseline ECG.
Echocardiogram preserved biventricular function with no significant valvular abnormalities
LDL 52
Continue current regimen including Coreg, Cardura, hydralazine
Continue aspirin
Continue furosemide with caution monitor renal function and volume status.
Mild hyponatremia volume loop diuretics.
Follow BMP.
IDDM with persistent hyperglycemia
Hemoglobin A1c 8.1
Hyperglycemic.
Increase insulin Lantus to 25-->26-->28 at bedtime/NovoLog 9-->11-->13 AC.
Continue basal bolus protocol with serial Accu-Cheks
Carbohydrate controlled diet
BPH
Monitor for retention.
On Flomax
Obstructive sleep apnea
Reportedly not compliant with CPAP.
Admission ABG pH 7.4 on room air 99%
Continue CPAP at bedtime.
Full code.
DVT prophylaxis Lovenox
Anticipated Discharge: 24 - 48 hours
Subjective/Interval History
-
Date of Service: April 28, 2024
Objective Data
-
Labs:
Laboratory Results
04/28/24
14:23
WBC 13.4 H
Hgb 9.3 L
Hct 27.8 L
Plt Count 490 H
Sodium 133 L
Potassium 4.0
Chloride 95 L
Carbon Dioxide 30
BUN 18
Creatinine 0.7
Glucose 87
Calcium 9.2
Vital Signs:
Vital Signs
Temp Pulse Resp BP Pulse Ox
97.5 F 74 18 131/71 99
04/28/24 15:00 04/28/24 15:00 04/28/24 15:00 04/28/24 15:00 04/28/24 15:00
I&O
04/27/24 04/28/24 04/29/24
06:59 06:59 06:59
Intake Total 1140 / 1140 1240 / 1240
Balance 1140 / 1140 1240 / 1240
Physical Exam
-
General: Well Developed and No Apparent Distress
HEENT: Normocephalic, Atraumatic and Moist Mucous Membranes
Respiratory: Clear to Auscultation
Cardiac: Regular Rhythm and S1/S2; Negative Murmur, Rub or Gallop
GI: Soft, Nontender, Nondistended and Normal Bowel Sounds; Negative Organomegaly
Rectal: Deferred by Provider
Musculoskeletal: No Clubbing, No Cyanosis and No Edema
Skin: Negative Rash
Neuro: Nonfocal/Grossly Intact
[2024-04-28] MEDS: LIPITOR 10 MG PO (18:25)
[2024-04-28] MEDS: LOVENOX 40 MG SC (18:25)
[2024-04-28 21:26] LABS: Glucose - Point of Care 94 mg/dl (70-99)
[2024-04-28] MEDS: SENOKOT-S 1 TABLET PO (22:02)
[2024-04-28 23:21] VITALS: BP 135/51
[2024-04-29] MEDS: APRESOLINE 10 MG PO ×4 (01:04→23:04)
[2024-04-29] MEDS: CARDURA 2 MG PO ×2 (01:04→23:05)
[2024-04-29] MEDS: MELATONIN 5 MG PO ×2 (01:04→23:04)
[2024-04-29] MEDS: LANTUS SC (01:05)
[2024-04-29 01:20] LABS: Glucose - Point of Care 92 mg/dl (70-99)
[2024-04-29] MEDS: LANTUS 0.18 UNITS SC (01:30)
[2024-04-29] MEDS: DILAUDID 0.5 MG IV (05:44)
[2024-04-29 06:00] VITALS: BMI 32.1
[2024-04-29 07:15] VITALS: BP 122/52
[2024-04-29 07:51] LABS: Glucose - Point of Care 91 mg/dl (70-99)
[2024-04-29 08:10] LABS: % Basophils 0.5 % (0-2); % Eosinophils 2.5 % (0-6); % Immature Granulocytes 0.8 % (0-0.5); % Lymphocytes 14.6 % (20.5-51.1); % Monocytes 8.1 % (1.7-9.3); % Neutrophils 73.5 % (42.2-75.2); Absolute Basophils 0.1 10^3/uL (0-0.2); Absolute Eosinophils 0.3 10^3/uL (0-0.7); Absolute Immature Granulocytes 0.1 10^3/uL (0-0.05); Absolute Lymphocytes 1.7 10^3/uL (1.2-3.4); Absolute Monocytes 0.9 10^3/uL (0.1-0.6); Absolute Neutrophils 8.5 10^3/uL (1.4-6.5); Hemoglobin 8.2 g/dL (13.0-18.0); Mean Corp Hgb Conc. 32.8 g/dL (33.0-37.0); Mean Corpuscular Hgb 28.8 pg (27.0-31.0); Mean Corpuscular Volume 87.7 fL (80.0-94.0); Mean Platelet Volume 9.2 fL (7.4-10.4); Nucleated Red Blood Cells % 0 % (-); Platelet Count 477 10^3/uL (130-400); Red Blood Cell Count 2.85 10^6/uL (4.70-6.10); Red Cell Dist. Width 14.6 % (11.5-14.5); White Blood Cell Count 11.6 10^3/uL (4.8-10.8)
[2024-04-29] MEDS: NOVOLOG FLEXPEN-MODERATE RESISTANCE SC ×2 (08:12→16:48)
[2024-04-29] MEDS: DAKIN'S SOLUTION 0.125% 1/4 STRENGTH 473 ML TOPICAL (08:43)
[2024-04-29] MEDS: COREG 25 MG PO (08:44)
[2024-04-29] MEDS: LOTRIMIN 1% CREAM 1 APPLIC TOPICAL ×2 (08:44→20:57)
[2024-04-29] MEDS: DESENEX/MITRAZOL/ZEASORB 1 APPLIC TOPICAL ×2 (08:44→20:57)
[2024-04-29] MEDS: LASIX 40 MG PO (08:45)
[2024-04-29] MEDS: SENOKOT-S 1 TABLET PO ×2 (08:45→20:57)
[2024-04-29] MEDS: FLOMAX 0.4 MG PO (08:45)
[2024-04-29] MEDS: NOVOLOG FLEXPEN 13 UNITS SC (08:45)
[2024-04-29] MEDS: PLAVIX 75 MG PO (08:45)
[2024-04-29] MEDS: ASPIR LOW (ENTERIC COATED) 81 MG PO (08:45)
[2024-04-29] MEDS: MIRALAX 17 GRAMS PO (08:45)
[2024-04-29] MEDS: PROTONIX 40 MG PO (08:45)
[2024-04-29] MEDS: MAG-TAB SR 84 MG PO ×2 (08:45→20:57)
[2024-04-29 09:18] LABS: Blood Urea Nitrogen 16 mg/dl (9-20); Calcium 8.9 mg/dl (8.4-10.2); Carbon Dioxide 28 mmol/L (22-30); Chloride 98 mmol/L (98-107); Estimated Creatinine Clearance 104 ml/min; Glucose 85 mg/dl (70-99); Sodium 136 mmol/L (135-145); eGFR > 60.00
[2024-04-29] MEDS: TYLENOL 650 MG PO (10:09)
[2024-04-29 11:09] VITALS: BP 107/50; O2SAT 97
[2024-04-29 11:32] LABS: Glucose - Point of Care 184 mg/dl (70-99)
[2024-04-29] MEDS: NOVOLOG FLEXPEN-MODERATE RESISTANCE 1 UNITS SC (13:02)
[2024-04-29] MEDS: NOVOLOG FLEXPEN 10 UNITS SC ×2 (13:03→17:25)
[2024-04-29] MEDS: NOVOLOG FLEXPEN SC (13:15)
--- NOTE | 2024-04-29 14:20 | W.PN.HOSP.TC ---
Today's Communication/Plan
-
Afebrile
WBC trending down.
Monitor closely off antibiotics
Wound care.
Noted with hypoglycemia. Monitor oral intake. Dialed back of Lantus/AC NovoLog
Assessment / Plan
Assessment / Plan
Physical Exam
General: Well Developed and No Apparent Distress
HEENT: Normocephalic, Atraumatic and Moist Mucous Membranes
Respiratory: Clear to Auscultation
Cardiac: Regular Rhythm and S1/S2
GI: Soft, Nontender, Nondistended and Normal Bowel Sounds
Musculoskeletal: No Cyanosis and No Edema
Skin: Negative Rash
Neuro: Nonfocal/Grossly Intact
Impression:
Bilateral lower extremity trophic wounds with dry gangrene and acute on chronic cellulitis
Suspect severe PAD.
Altered mental status secondary to toxic metabolic encephalopathy.
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
Mild hyponatremia sodium 133
Other conditions:
CAD with history of PCI unknown details.
CHF unknown EF
Anemia of chronic disease.
IDDM.
Essential hypertension.
BPH.
Obstructive sleep apnea not compliant with CPAP
Chronic ambulatory dysfunction likely multifactorial (PAD, diabetic neuropathy, cognitive status)
Plan:
Bilateral lower extremity wounds with dry gangrene at the heels.
Suspect severe PAD.
Arterial ultrasound
1. As above, examination was limited by the patient's inability to remain motionless secondary to pain. Ankle brachial indices were unobtainable.
2. Right toe brachial index of 0.16. Right common femoral waveform is multiphasic, but somewhat dampened suggesting probable component of inflow disease. There are monophasic dampened waveforms throughout the superficial femoral and popliteal
arteries. No high-grade focal stenosis is identified sonographically.
3. Left toe brachial index of 0.07. The left common femoral waveform is monophasic, consistent with inflow disease. There is moderate to severe stenosis of the mid left superficial femoral artery.
X-ray with osteoporosis.
CTA Overall moderate diffuse atherosclerotic disease, as detailed above. The right superficial femoral artery contains moderate calcification with focal near complete occlusion distally. In the right lower leg, there is only two-vessel proximal
run off with nonvisualization of the majority of the anterior tibial artery and cut off of the peroneal artery just above the ankle.
Wound culture with MRSA and ESBL, later postOP LLE Cx with Pseudomonas, MSSA, Proteus- Switched to Merrem from Ertapenem on 04/19/24 (for pseudomonal coverage),
Afebrile and hemodynamically stable. Noted with rising WBC.
Sepsis ruled out
Dr. Sutton discussed with vascular surgery
Difficult situation: Left lower extremity severe wound with tendon exposed with concern for osteomyelitis. Limb with less likely solvable at this point. Right lower extremity with proving vascular insufficiency may require intervention. If any
decision should be made in terms of consolidating procedure with consideration of a left AKA and attempt of revascularization on the right.
Infectious disease input appreciated.
MRI of the left lower extremity negative for osteomyelitis
Antibiotics transition from vancomycin/Zosyn to vancomycin/ertapenem
Status post arteriogram on 04/15 with left lower extremity I&D and revascularization
Status post Right lower extremity arteriogram, right SFA pop IV L and stent placement. Bilateral lower leg wound debridement
Podiatry consultation appreciated
Continue wound care including wound VAC
Completed antibiotic course on 04/24. Monitor closely including temperature curve and WBC
Altered mental status suspect toxic metabolic encephalopathy in the settings of acute infection.
resolved
Suspect underlying dementia vascular type.
CT head without acute abnormalities
Monitor closely.
CAD.
CHF preserved EF by history.
Essential hypertension
Current volume status compensated.
Check baseline ECG.
Echocardiogram preserved biventricular function with no significant valvular abnormalities
LDL 52
Continue current regimen including Coreg, Cardura, hydralazine
Continue aspirin
Continue furosemide with caution monitor renal function and volume status.
Mild hyponatremia volume loop diuretics.
Follow BMP.
IDDM with persistent hyperglycemia
Hemoglobin A1c 8.1
Hyperglycemic.
Adjust insulin daily
Continue basal bolus protocol with serial Accu-Cheks
Carbohydrate controlled diet
BPH
Monitor for retention.
On Flomax
Obstructive sleep apnea
Reportedly not compliant with CPAP.
Admission ABG pH 7.4 on room air 99%
Continue CPAP at bedtime.
Full code.
DVT prophylaxis Lovenox
Anticipated Discharge: 24 - 48 hours
Subjective/Interval History
-
Date of Service: April 29, 2024
Objective Data
-
Labs:
Laboratory Results
04/29/24
07:32
WBC 11.6 H
Hgb 8.2 L
Hct 25.0 L
Plt Count 477 H
Sodium 136
Potassium 4.0
Chloride 98
Carbon Dioxide 28
BUN 16
Creatinine 0.7
Glucose 85
Calcium 8.9
Vital Signs:
Vital Signs
Temp Pulse Resp BP Pulse Ox
97.8 F 75 18 122/52 98
04/29/24 07:15 04/29/24 07:15 04/29/24 07:15 04/29/24 07:15 04/29/24 08:00
I&O
04/28/24 04/29/24 04/30/24
06:59 06:59 06:59
Intake Total 1240 / 1240 1560 / 1560
Balance 1240 / 1240 1560 / 1560
Physical Exam
-
General: Well Developed and No Apparent Distress
HEENT: Normocephalic, Atraumatic and Moist Mucous Membranes
Respiratory: Clear to Auscultation
Cardiac: Regular Rhythm and S1/S2; Negative Murmur, Rub or Gallop
GI: Soft, Nontender, Nondistended and Normal Bowel Sounds; Negative Organomegaly
Rectal: Deferred by Provider
Musculoskeletal: No Clubbing, No Cyanosis and No Edema
Skin: Negative Rash
Neuro: Nonfocal/Grossly Intact
--- NOTE | 2024-04-29 15:15 | CM ---
CM reviewed chart, continue with wound care. CM sent updated clinicals to [facility] on patient status. CM will continue to follow for all discharge planning needs.
Plan; return to [facility] when stable
[facility]
Report: [phone]
[2024-04-29 15:34] VITALS: BP 127/49
[2024-04-29 16:43] LABS: Glucose - Point of Care 138 mg/dl (70-99)
[2024-04-29] MEDS: LIPITOR 10 MG PO (17:25)
[2024-04-29] MEDS: LOVENOX 40 MG SC (17:25)
[2024-04-29 20:44] LABS: Glucose - Point of Care 274 mg/dl (70-99)
[2024-04-29] MEDS: COREG PO (21:07)
[2024-04-29 22:51] LABS: Glucose - Point of Care 183 mg/dl (70-99)
[2024-04-29 23:06] VITALS: BP 134/45
[2024-04-29] MEDS: LANTUS 0.2 UNITS SC (23:15)
[2024-04-30 06:00] VITALS: BMI 31.9
[2024-04-30 07:23] LABS: Glucose - Point of Care 162 mg/dl (70-99)
[2024-04-30 07:36] VITALS: BP 136/47
[2024-04-30] MEDS: PROTONIX 40 MG PO (07:57)
[2024-04-30] MEDS: COREG 25 MG PO (07:57)
[2024-04-30] MEDS: SENOKOT-S 1 TABLET PO (07:57)
[2024-04-30] MEDS: APRESOLINE 10 MG PO (07:57)
[2024-04-30] MEDS: LASIX 40 MG PO (07:57)
[2024-04-30] MEDS: FLOMAX 0.4 MG PO (07:57)
[2024-04-30] MEDS: MIRALAX 17 GRAMS PO (07:57)
[2024-04-30] MEDS: PLAVIX 75 MG PO (07:57)
[2024-04-30] MEDS: MAG-TAB SR 84 MG PO (07:57)
[2024-04-30] MEDS: ASPIR LOW (ENTERIC COATED) 81 MG PO (07:57)
[2024-04-30] MEDS: DAKIN'S SOLUTION 0.125% 1/4 STRENGTH 473 ML TOPICAL (07:59)
[2024-04-30] MEDS: DESENEX/MITRAZOL/ZEASORB 1 APPLIC TOPICAL (07:59)
[2024-04-30] MEDS: LOTRIMIN 1% CREAM 1 APPLIC TOPICAL (07:59)
[2024-04-30] MEDS: NOVOLOG FLEXPEN 10 UNITS SC ×2 (08:18→12:58)
[2024-04-30] MEDS: NOVOLOG FLEXPEN-MODERATE RESISTANCE 1 UNITS SC (08:19)
[2024-04-30] MEDS: DILAUDID 0.5 MG IV (09:17)
[2024-04-30 11:10] LABS: Glucose - Point of Care 236 mg/dl (70-99)
--- NOTE | 2024-04-30 12:15 | W.DS.TRANS ---
DC Summary - [employer]
-
Discharge Instructions:
Discharge Diagnosis/Procedures
Impression:
Bilateral lower extremity trophic wounds with
dry gangrene and acute on chronic cellulitis
Suspect severe PAD.
Altered mental status secondary to toxic
metabolic encephalopathy.
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
Mild hyponatremia sodium 133
Other conditions:
CAD with history of PCI unknown details.
CHF unknown EF
Anemia of chronic disease.
IDDM.
Essential hypertension.
BPH.
Obstructive sleep apnea not compliant with CPAP
Chronic ambulatory dysfunction likely
multifactorial (PAD, diabetic neuropathy,
cognitive status)
Intravascular lithotripsy to calcified left
external iliac artery stenosis
Balloon angioplasty and stenting of left
external iliac artery stenosis
Intravascular lithotripsy to calcified left
superficial femoral artery and above-knee
popliteal artery stenoses
Balloon angioplasty and stenting of left
superficial femoral artery and above-knee
popliteal artery stenosis
Balloon angioplasty and stenting of right common
iliac artery stenosis
Sharp excisional debridement of left heel wound
including skin and subcutaneous tissue
Sharp excisional debridement of left pfeiffer wound
including skin, subcutaneous tissue, muscle and
fascia
Sharp excisional debridement of right pfeiffer and
ankle wound
Intravascular lithotripsy to right superficial
femoral artery and popliteal artery calcified
stenoses
Balloon angioplasty and drug-eluting stenting of
right popliteal artery and superficial femoral
artery
Sharp excisional debridement of right heel
including skin and subcutaneous tissue
Sharp excisional debridement of right Achilles
wound including skin, subcutaneous tissue and
tendon
Sharp excisional debridement of left heel wound
including skin, subcutaneous tissue and bone
Diet Diabetic, Carb Controlled
Blood Work 2 months LFT lab draw for initiation of statin
therapy- please follow up with your PCP
Others Tests Ultrasounds: 06/04 at 1:30 and 2:00
Wound Care Use pressure offloading shoes on b/l feet
Instructions:
Stand-Alone Forms:
Changes to Home Medications: Yes
Discharge Medications:
DC Medications w/original date entered in [facility]
acetaminophen 325 mg tablet 650 mg PO Q6HPRN PRN mild pain 04/04/24
aspirin 81 mg tablet,delayed release 81 mg PO DAILY Blood Clot Prevention/Tx 04/04/24
carvedilol 25 mg tablet 25 mg PO BID Blood Pressure 04/04/24
doxazosin 2 mg tablet 2 mg PO HS Blood Pressure 04/04/24
ergocalciferol (vitamin D2) 1,250 mcg (50,000 unit) capsule 1,250 mcg PO MO Supplement 04/04/24
furosemide 40 mg tablet 40 mg PO DAILY Fluid Retention/Swelling 04/04/24
hydralazine 10 mg tablet 10 mg PO TID Blood Pressure 04/04/24
insulin aspart U-100 100 unit/mL (3 mL) subcutaneous pen 4 - 10 sliding scale dose SC ACHS Diabetes 04/04/24
magnesium oxide 400 mg (241.3 mg magnesium) tablet (MagOx) 400 mg PO BID Supplement 04/04/24
melatonin 5 mg tablet 5 mg PO HS Sleep 04/04/24
miconazole nitrate 2 % topical powder (Antifungal (miconazole)) 1 applic topical BID Skin Issues 04/04/24
omeprazole 20 mg tablet,delayed release 20 mg PO DAILY Gastrointestinal Issue 04/04/24
tamsulosin 0.4 mg capsule 0.4 mg PO DAILY Urinary Issue 04/04/24
zinc oxide 12 % topical cream 1 applic topical TID Skin Issues 04/04/24
Insulin Glargine Lantus [Lantus] 20 units As Directed mls/hr SC HS 04/30/24
atorvastatin 10 mg tablet 10 mg PO QPM #30 tabs 04/30/24
clopidogrel 75 mg tablet 75 mg PO DAILY #30 tabs 04/30/24
insulin aspart U-100 100 unit/mL (3 mL) subcutaneous pen 10 unit (0.1 mL) SC AC #15 mL 04/30/24
oxycodone 5 mg tablet 5 mg PO DAILY PRN Pain #14 tabs 04/30/24
polyethylene glycol 3350 17 gram oral powder packet (HealthyLax) 17 g PO DAILY #30 ea 04/30/24
sennosides 8.6 mg-docusate sodium 50 mg tablet 1 tab PO BID #30 tabs 04/30/24
Home Medication Changes
DAPT initiated
Oral DM medication stopped
Pending Results: No
[2024-04-30] MEDS: NOVOLOG FLEXPEN-MODERATE RESISTANCE 3 UNITS SC (12:58)
--- NOTE | 2024-04-30 13:00 | CM ---
CM reviewed chart, discussed with Hospitalist, patient for discharge today. Patient seen bedside with daughter, discussed plan for discharge. IMM reviewed with daughter, daughter verbally agrees, declined copy of form, placed in chart. Updates to
[place] at [facility], able to accept patient for SNF, relayed daughters concerns of wound care, medications. CM discussed with daughter facility will be updated on all of patients needs and have been throughout patients hospital stay. Daughter
very grateful for patients care at Hospital. Patient scheduled for 3:00 p.m. ambulance transport. CM will continue to follow for all discharge planning needs.
Plan; return to [facility], 3:00 p.m. ambulance transport
[facility]
Report: [phone]
[2024-04-30 14:12] VITALS: BP 110/47
== END 2024-04-30 14:25 | DRG 278 ==
LOC: 4 WEST ACU 20:35
PROVIDERS: Hospitalist; Internal Medicine; Nurse Practitioner Acute Care; Physician Assistant; Radiology Diagnostic Radiology; Registered Nurse; Surgery Vascular Surgery; ADMITTING PHYSICIAN Hospitalist; ATTENDING PHYSICIAN Internal Medicine; CONSULT PHYSICIAN Internal Medicine Infectious Disease; CONSULT PHYSICIAN Podiatrist Foot & Ankle Surgery; EMERGENCY PHYSICIAN Emergency Medicine; FAMILY PHYSICIAN Internal Medicine; OTHER PHYSICIAN Nurse Practitioner
PROC: 047L3EZ Dilation of Left Femoral Artery with Two Intraluminal Devices, Percutaneous Approach (ICD-10-PCS; 2024-04-16)
PROC: 0JBQ0ZZ Excision of Right Foot Subcutaneous Tissue and Fascia, Open Approach (ICD-10-PCS; 2024-04-16)
PROC: 04FJ3ZZ Fragmentation of Left External Iliac Artery, Percutaneous Approach (ICD-10-PCS; 2024-04-16)
PROC: 0KBT0ZZ Excision of Left Lower Leg Muscle, Open Approach (ICD-10-PCS; 2024-04-16)
PROC: 0JBN0ZZ Excision of Right Lower Leg Subcutaneous Tissue and Fascia, Open Approach (ICD-10-PCS; 2024-04-16)
PROC: 04FL3ZZ Fragmentation of Left Femoral Artery, Percutaneous Approach (ICD-10-PCS; 2024-04-16)
PROC: 047J3DZ Dilation of Left External Iliac Artery with Intraluminal Device, Percutaneous Approach (ICD-10-PCS; 2024-04-16)
PROC: 0JBR0ZZ Excision of Left Foot Subcutaneous Tissue and Fascia, Open Approach (ICD-10-PCS; 2024-04-16)
PROC: 047C3DZ Dilation of Right Common Iliac Artery with Intraluminal Device, Percutaneous Approach (ICD-10-PCS; 2024-04-16)
PROC: 0QBM0ZZ Excision of Left Tarsal, Open Approach (ICD-10-PCS; 2024-04-21)
PROC: 0LBS0ZZ Excision of Right Ankle Tendon, Open Approach (ICD-10-PCS; 2024-04-21)
PROC: 047K3EZ Dilation of Right Femoral Artery with Two Intraluminal Devices, Percutaneous Approach (ICD-10-PCS; 2024-04-21)
PROC: 04FK3ZZ Fragmentation of Right Femoral Artery, Percutaneous Approach (ICD-10-PCS; 2024-04-21)
PROC: 02HV33Z Insertion of Infusion Device into Superior Vena Cava, Percutaneous Approach (ICD-10-PCS; 2024-04-21)
DX: E11.52 Type 2 diabetes mellitus with diabetic peripheral angiopathy with gangrene (principal); G92.8 Other toxic encephalopathy; L03.116 Cellulitis of left lower limb; L03.115 Cellulitis of right lower limb; I50.32 Chronic diastolic (congestive) heart failure; I13.0 Hypertensive heart and chronic kidney disease with heart failure and stage 1 through stage 4 chronic kidney disease, or unspecified chronic kidney disease; E87.1 Hypo-osmolality and hyponatremia; L97.823 Non-pressure chronic ulcer of other part of left lower leg with necrosis of muscle; I70.263 Atherosclerosis of native arteries of extremities with gangrene, bilateral legs; L97.422 Non-pressure chronic ulcer of left heel and midfoot with fat layer exposed; L97.312 Non-pressure chronic ulcer of right ankle with fat layer exposed; L97.812 Non-pressure chronic ulcer of other part of right lower leg with fat layer exposed; I89.0 Lymphedema, not elsewhere classified; E11.65 Type 2 diabetes mellitus with hyperglycemia; E11.40 Type 2 diabetes mellitus with diabetic neuropathy, unspecified; E11.22 Type 2 diabetes mellitus with diabetic chronic kidney disease; I25.10 Atherosclerotic heart disease of native coronary artery without angina pectoris; I70.0 Atherosclerosis of aorta; I70.8 Atherosclerosis of other arteries; K21.9 Gastro-esophageal reflux disease without esophagitis; G47.33 Obstructive sleep apnea (adult) (pediatric); E83.42 Hypomagnesemia; D63.1 Anemia in chronic kidney disease; N18.9 Chronic kidney disease, unspecified; F01.50 Vascular dementia, unspecified severity, without behavioral disturbance, psychotic disturbance, mood disturbance, and anxiety; L89.152 Pressure ulcer of sacral region, stage 2; I25.2 Old myocardial infarction; N40.0 Benign prostatic hyperplasia without lower urinary tract symptoms; B96.1 Klebsiella pneumoniae [K. pneumoniae] as the cause of diseases classified elsewhere; B95.7 Other staphylococcus as the cause of diseases classified elsewhere; E78.5 Hyperlipidemia, unspecified; Z11.52 Encounter for screening for COVID-19; Z87.891 Personal history of nicotine dependence; Z95.5 Presence of coronary angioplasty implant and graft; Z91.199 Patient's noncompliance with other medical treatment and regimen due to unspecified reason; Z91.041 Radiographic dye allergy status; Z88.5 Allergy status to narcotic agent; Z79.899 Other long term (current) drug therapy; Z79.82 Long term (current) use of aspirin; Z79.4 Long term (current) use of insulin; Z79.84 Long term (current) use of oral hypoglycemic drugs
CPT/HCPCS: 11042; 11043; 11044; 11045; 11046; 11047; 36600; 70450; 71045; 73650; 73718; 75630; 75635; 80048; 80053; 80061; 80202; 81003; 81015; 82607; 82728; 82746; 82805; 82962; 83010; 83036; 83540; 83550; 83605; 83735; 84145; 85025; 85027; 85045; 87040; 87070; 87077; 87086; 87147; 87176; 87186; 87205; 87502; 87811; 93005; 93306; 93922; 93925; 94660; 96365; 96375; 97163; 97164; 97167; 97530; 99284; C1725; C1769; C1874; C1894; C9765; J1335; Q9950; Q9967

== ENCOUNTER → 2024-05-09 07:50 | Outpatient (REF) | payer MEDICARE, OTHER, SELFPAY | LOC: WOUND 07:50 | PROVIDERS: ATTENDING PHYSICIAN Surgery | DX: L97.313 Non-pressure chronic ulcer of right ankle with necrosis of muscle (principal); L97.412 Non-pressure chronic ulcer of right heel and midfoot with fat layer exposed; L97.223 Non-pressure chronic ulcer of left calf with necrosis of muscle; L97.322 Non-pressure chronic ulcer of left ankle with fat layer exposed; E11.52 Type 2 diabetes mellitus with diabetic peripheral angiopathy with gangrene; Z79.4 Long term (current) use of insulin; E11.8 Type 2 diabetes mellitus with unspecified complications; I87.2 Venous insufficiency (chronic) (peripheral); I73.9 Peripheral vascular disease, unspecified | CPT/HCPCS: 99213 ==

== ENCOUNTER → 2024-06-04 13:00 | Outpatient (REF) | payer MEDICARE, OTHER, SELFPAY | LOC: RAD 13:00 | PROVIDERS: ATTENDING PHYSICIAN Surgery Vascular Surgery | DX: I73.9 Peripheral vascular disease, unspecified (principal) | CPT/HCPCS: 93922; 93925 ==

== ENCOUNTER → 2024-06-13 10:25 | Outpatient (REF) | payer MEDICARE, OTHER, SELFPAY | LOC: RAD 10:25 | PROVIDERS: ATTENDING PHYSICIAN Registered Nurse | DX: I73.9 Peripheral vascular disease, unspecified (principal) | CPT/HCPCS: 93978 ==

== ENCOUNTER → 2024-09-02 08:49 | Outpatient (REF) | payer MEDICARE, OTHER, SELFPAY | LOC: RAD 08:49 | PROVIDERS: ATTENDING PHYSICIAN Surgery Vascular Surgery | DX: I73.9 Peripheral vascular disease, unspecified (principal); I77.1 Stricture of artery; L97.322 Non-pressure chronic ulcer of left ankle with fat layer exposed | CPT/HCPCS: 93922; 93925 ==

== ENCOUNTER 2024-10-22 13:09 | Inpatient (IN) | payer MEDICARE, OTHER, SELFPAY ==
[2024-10-22] VITALS (11 sets, daily range): BP systolic 95–159; BP diastolic 42–63
--- NOTE | 2024-10-22 10:02 | ED.GENMED ---
History of Present Illness
General
Chief Complaint: Abnormal Lab Value
Source: records
Exam Limitations: other (Patient speaks Bruneian and is unable to add history.)
Time Seen by Provider: 10/22/24 09:51
History of Present Illness
History of Present Illness:
Apparently has been ill for 2 to 3 days in the facility. COVID and flu are going around the facility. Had lab done yesterday. Elevated white count. COVID and flu -2 days ago. Some hypoxia.
Past History
Past History
ED Past Medical History: CAD, CHF, HTN, Hypercholesterolemia and Other (Peripheral vascular disease. Chronic lymphedema. Prostatic hypertrophy)
Review of Systems
Review of Systems
Unable to obtain full review of systems at this time due to: language barrier
All Other Systems: Not applicable
Phy Exam
Physical Exam
Physical Exam:
GENERAL: Alert. Language barrier. Chronically ill-appearing. No respiratory distress.
EYE: Orbits normal.
NECK: Supple, no significant adenopathy.
ENT: Pharynx without erythema
CARDIAC: Regular rate and rhythm without any obvious murmurs.
LUNGS: Mild hypoxia on room air. Mild rhonchi in the bases no wheezing rales or respiratory distress
ABDOMEN: Soft, without focal tenderness or distention
NEUROLOGICAL: Alert and oriented , grossly non-focal
SKIN: Warm and dry, sacral decubitus. Bilateral leg wrapping with no obvious proximal erythema. No drainage on the wounds
MUSCULOSKELETAL: Chronic edema
Sepsis
Sepsis Screening
Sepsis Assessment: Sepsis Ruled Out
Sepsis Screen
Sepsis Screen: Sepsis Ruled Out
Date: 10/22/24
Time: 11:31
Course
Orders/Labs/Results
Orders:
Orders
10/22/24 09:57
Electrocardiogram (*1) Urgent
Reason for Study: Other
Other Reason for Exam: sepsis
Cardiac Monitoring- Treatment ONCE
EKG- Treatment ONCE
IV Insert/Care/Rem.- Treatment PRN
CR Chest - 2 Views Urgent
Comment:
Reason For Exam: fever hypoxia
O2 Therapy [RESP] Stat
Titrate/Wean O2 to maintain O2 sat greater than (%): 92
10/22/24 09:58
Urinalysis Reflex To Culture Urgent
10/22/24 10:01
Basic Metabolic Panel Urgent
COVID-19 Antigen Urgent
Source: Nasal Swab
Complete Blood Count/With Diff Urgent
Blood Culture Q30M
MICHEAL Source: Blood/Venous
Specimen Description:
Influenza A+B Rapid Molecular Urgent
MICHEAL Source: Nasal Swab
Specimen Description:
Acetaminophen 1000MG/100Ml [Ofirmev] 1,000 mg in 100 ml IV ONCE
Acetaminophen IV Indication:: Targeted Temp Management
10/22/24 10:03
Lidocaine 2% [Lidocaine Uro-Jet 2%] 1 syringe .ROUTE .STK-MED ONE
10/22/24 10:07
Lactic Acid Urgent
10/22/24 10:19
Blood Culture Q30M
MICHEAL Source: Blood/Venous
Specimen Description:
10/22/24 11:27
Oseltamivir Phosphate [Tamiflu] 75 mg PO NOW STA
10/22/24 12:00
0.9% Sodium Chloride 500 ml [Nss] 500 ml IV 150 mls/hr
Abnormal Lab Results
10/22/24
10:01
WBC 16.1 H 10^3/uL
(4.8-10.8)
RBC 3.68 L 10^6/uL
(4.70-6.10)
Hgb 10.6 L g/dL
(13.0-18.0)
Hct 31.0 L %
(39.0-52.0)
RDW 14.6 H %
(11.5-14.5)
Abs Immat Gran (auto) 0.1 H 10^3/uL
(0-0.05)
Absolute Neuts (auto) 14.5 H 10^3/uL
(1.4-6.5)
Absolute Lymphs (auto) 0.7 L 10^3/uL
(1.2-3.4)
Absolute Monos (auto) 0.8 H 10^3/uL
(0.1-0.6)
Immature Gran % 0.6 H %
(0-0.5)
Neutrophils % 90.0 H %
(42.2-75.2)
Lymphocytes % 4.1 L %
(20.5-51.1)
Sodium 130 L mmol/L
(135-145)
Chloride 96 L mmol/L
(98-107)
Glucose 251 H mg/dl
(70-99)
10/22/24 10:01
10/22/24 10:01
Vital Signs
Initial and Last Documented VS:
Initial Vital Signs
Pulse Ox
90
10/22/24 09:49
Last Documented Vital Signs
Temp Pulse Resp BP Pulse Ox
101 F H 81 22 122/51 92
10/22/24 09:51 10/22/24 10:30 10/22/24 10:30 10/22/24 10:00 10/22/24 10:30
MDM/Problems Addressed
Differential Diagnosis Includes:
Fever recent leukocytosis hypoxia. Most likely respiratory issue. However clinically not in any acute respiratory distress. Workup including chest x-ray COVID flu labs. Will hold on fluids at this time. Stable blood pressure and history of CHF.
*Radiology
Radiology exam reviewed: radiology read reviewed (No acute findings)
*Pulse Oximetry
Patient hypoxic: yes
*Critical Care Note
Total Time (30-74mins, 75-104mins- exclusive of procedures): Not Applicable
Data Reviewed
Review of Other/Old Records Reveals: Labs, Records, Radiology Studies, Testing and Discharge Summary
Update Note
Update Note:
No acute findings on x-ray. However patient influenza positive, leukocytosis, hypoxic. Discussed with family. Will admit for further care
ED Attending Note
-
Portions of this chart may have been created with voice recognition software.� Occasional wrong word or��sound alike� substitutions may have occurred due to the inherent limitations of voice recognition software.
Discharge Plan
Departure
Patient Disposition: Admit
Date of Disposition: 10/22/24
Time of Disposition: 11:28
Presentation/result/management discussed w/ accepting MD/DO: Hospitalist
Discharge Problem:
Influenza, Hypoxia
Prescriptions:
No Action
furosemide 40 mg Tablet
20 mg PO DAILY
hydralazine 10 mg Tablet
10 mg PO TID
carvedilol 25 mg Tablet
25 mg PO BID
acetaminophen 325 mg Tablet
650 mg PO Q6HPRN PRN (Reason: mild pain)
aspirin 81 mg Tablet,Delayed Release (Dr/Ec)
81 mg PO DAILY
magnesium oxide [MagOx] 400 mg (241.3 mg magnesium) Tablet
400 mg PO BID
tamsulosin 0.4 mg Capsule
0.4 mg PO DAILY
ergocalciferol (vitamin D2) 1,250 mcg (50,000 unit) Capsule
1,250 mcg PO MO
doxazosin 2 mg tablet
2 mg PO HS
insulin aspart U-100 100 unit/mL (3 mL) Insulin Pen
0 sliding scale dose SC ACHS
Rx Instructions:
201-250= 4u; 251-300- 6u; 301-350= 8u; 351-400= 10u
omeprazole 20 mg Tablet,Delayed Release (Dr/Ec)
20 mg PO DAILY
zinc oxide 12 % Cream
1 applic TOPICAL TID
clopidogrel 75 mg Tablet
75 mg PO DAILY Qty: 30 0RF
loperamide 2 mg Tablet
2 mg PO Q8HPRN PRN (Reason: DIARRHEA)
miconazole nitrate [Antifungal (miconazole)] 2 % Powder
1 applic TOPICAL BID
magnesium hydroxide [Milk of Magnesia] 400 mg/5 mL Suspension
2,400 mg PO HSPRN PRN (Reason: IF NO BM BY 3RD DAY)
bisacodyl [Dulcolax (bisacodyl)] 10 mg Suppository
10 mg [place] DAILYPRN PRN (Reason: IF NO BM MOM)
potassium chloride 20 mEq Tablet Extended Release
20 meq PO DAILY
Vashe 0.033 % Irrigation Solution
1 irrig IRRIGATION DAILYPRN PRN (Reason: LEFT HEEL)
Vashe 0.033 % Irrigation Solution
1 irrig IRRIGATION DAILY
balsam zbigniew-castor oil [Venelex] Ointment
1 applic TOPICAL BID
atorvastatin 10 mg tablet
10 mg PO HS
Referrals:
Esequiel Urbina MD [Family Provider] -
Interventions
Interventions:
*Risk Screen - Suicide Last Done: 10/22/24 09:59
*General Assessment Last Done: 10/22/24 10:14
*Neglect/Abuse Screening Last Done: 10/22/24 09:59
*ED- Fall Risk Assessment Last Done: 10/22/24 09:58
*ED COVID-19 Vaccine History Last Done: 10/22/24 09:58
ED- Neurological Assessment Last Done: 10/22/24 10:10
ED-Skin Assessment Last Done: 10/22/24 10:12
Discharge Date and Time
Print Language: Bruneian
[2024-10-22] MEDS: OFIRMEV 100 IV (10:09)
[2024-10-22 10:18] LABS: % Basophils 0.3 % (0-2); % Eosinophils 0.2 % (0-6); % Immature Granulocytes 0.6 % (0-0.5); % Lymphocytes 4.1 % (20.5-51.1); % Monocytes 4.8 % (1.7-9.3); Absolute Basophils 0.1 10^3/uL (0-0.2); Absolute Immature Granulocytes 0.1 10^3/uL (0-0.05); Absolute Lymphocytes 0.7 10^3/uL (1.2-3.4); Absolute Monocytes 0.8 10^3/uL (0.1-0.6); Absolute Neutrophils 14.5 10^3/uL (1.4-6.5); Hemoglobin 10.6 g/dL (13.0-18.0); Mean Corp Hgb Conc. 34.2 g/dL (33.0-37.0); Mean Corpuscular Hgb 28.8 pg (27.0-31.0); Mean Corpuscular Volume 84.2 fL (80.0-94.0); Mean Platelet Volume 9.2 fL (7.4-10.4); Nucleated Red Blood Cells % 0 % (-); Platelet Count 383 10^3/uL (130-400); Red Blood Cell Count 3.68 10^6/uL (4.70-6.10); Red Cell Dist. Width 14.6 % (11.5-14.5); White Blood Cell Count 16.1 10^3/uL (4.8-10.8)
[2024-10-22 10:32] LABS: Blood Urea Nitrogen 20 mg/dl (9-20); Calcium 9.1 mg/dl (8.4-10.2); Carbon Dioxide 24 mmol/L (22-30); Chloride 96 mmol/L (98-107); Glucose 251 mg/dl (70-99); Potassium 4.4 mmol/L (3.5-5.1); Sodium 130 mmol/L (135-145); eGFR > 60.00
[2024-10-22 10:36] LABS: COVID-19 Antigen Negative (Negative)
[2024-10-22 11:00] LABS: Lactic Acid 1.2 mmol/L (0.7-2.0)
--- NOTE | 2024-10-22 11:03 | EDRN ---
Straight cath not needed - will place condom catheter
[2024-10-22] MEDS: NSS 500 IV (11:36)
[2024-10-22] MEDS: TAMIFLU 75 MG PO ×2 (11:36→20:19)
--- NOTE | 2024-10-22 12:02 | HPS.HSE ---
Family Physician
-
Family Physician: Esequiel Urbina MD
Chief Complaint
-
diarrhea, sob
cough
History of Present Illness
79-year-old with past medical history for cellulitis, gangrene, CHF, GERD, PVD, dementia, hypertension presented to us with generalized weakness since Sunday. Patient was nauseous Sunday night Sunday he was complaining of abdominal pain. He
did have some episodes of diarrhea on Sunday night. Denied vomiting. Chest x-ray obtained at [facility] was negative for acute disease. Abdomen x-ray with impression of no bowel obstruction. Moderate gas in nondistended loops of small bowel
and colon. Findings may represent ileus. On Sunday he was noted to have nonproductive cough. Patient was complaining of short of breath. Denied fever or chill. Patient denied headache, dizzy or syncope. Patient denied dysuria hematuria.
Patient received Tylenol, normal saline, Tamiflu in ER. Patient was noted hypoxic. Requiring 2 L of oxygen. Tested positive for flu. Admitting for further management
Medical History
Past Medical History
Past Medical History: Reports Other
Additional Past Medical History:
Dementia
PVD
Acute tracheitis
Cellulitis
GERD
NC
BPH
Dermatitis
Dysphagia
Hypertension
Gangrene
CHF
Hyperlipidemia
Lymphedema
Osteoarthritis
Type 2 diabetes
Dementia
Past Surgical History: Reports None and Other
Social History
Tobacco: Former Smoker
Alcohol: None
Drug: None
Personal: Single
Living: Penitentiary
Family History
Family History: Not pertinent
Allergies / Home Medications
Allergies reflects when Allergies were last updated in [employer].
Home Medications with original date entered in [employer]
Allergy/Medication List:
Allergies
Allergy/AdvReac Type Severity Reaction Status Date / Time
acetic acid Allergy Unknown Verified 04/04/24 17:46
hydromorphone Allergy Unknown Verified 04/04/24 17:46
iodine Allergy Unknown Verified 04/04/24 17:46
morphine Allergy Unknown Verified 04/04/24 17:46
Home Medications
acetaminophen 325 mg tablet 650 mg PO Q6HPRN PRN mild pain 04/04/24
aspirin 81 mg tablet,delayed release 81 mg PO DAILY Blood Clot Prevention/Tx 04/04/24
carvedilol 25 mg tablet 25 mg PO BID Blood Pressure 04/04/24
doxazosin 2 mg tablet 2 mg PO HS Blood Pressure 04/04/24
ergocalciferol (vitamin D2) 1,250 mcg (50,000 unit) capsule 1,250 mcg PO MO Supplement 04/04/24
furosemide 40 mg tablet 20 mg PO DAILY Fluid Retention/Swelling 04/04/24
hydralazine 10 mg tablet 10 mg PO TID Blood Pressure 04/04/24
insulin aspart U-100 100 unit/mL (3 mL) subcutaneous pen 0 sliding scale dose SC ACHS Diabetes 04/04/24
magnesium oxide 400 mg (241.3 mg magnesium) tablet (MagOx) 400 mg PO BID Supplement 04/04/24
omeprazole 20 mg tablet,delayed release 20 mg PO DAILY Gastrointestinal Issue 04/04/24
tamsulosin 0.4 mg capsule 0.4 mg PO DAILY Urinary Issue 04/04/24
zinc oxide 12 % topical cream 1 applic topical TID PERIANAL AREA 04/04/24
clopidogrel 75 mg tablet 75 mg PO DAILY #30 tabs 04/30/24
atorvastatin 10 mg tablet 10 mg PO HS 10/22/24
balsam zbigniew-castor oil topical ointment (Venelex topical ointment) 1 applic topical BID BUTTOCK,SACRUM 10/22/24
bisacodyl 10 mg rectal suppository (Dulcolax (bisacodyl)) 10 mg [place] DAILYPRN PRN IF NO BM MOM 10/22/24
loperamide 2 mg tablet 2 mg PO Q8HPRN PRN DIARRHEA 10/22/24
magnesium hydroxide 400 mg/5 mL oral suspension (Milk of Magnesia) 2,400 mg PO HSPRN PRN IF NO BM BY 3RD DAY 10/22/24
miconazole nitrate 2 % topical powder (Antifungal (miconazole)) 1 applic topical BID REDNESS,FOLDS,ABD FOLDS 10/22/24
potassium chloride 20 mEq tablet,extended release 20 meq PO DAILY 10/22/24
sodium chloride-hypochlorous acid 0.033 % irrigation solution (Vashe) 1 irrig irrigation DAILY LEFT HEEL 10/22/24
sodium chloride-hypochlorous acid 0.033 % irrigation solution (Vashe) 1 irrig irrigation DAILYPRN PRN LEFT HEEL 10/22/24
Review of Systems
-
Constitutional: Reports No Symptoms and Fatigue
EENT: Reports No Symptoms
Respiratory: Reports Cough and Trouble Breathing
Cardiac: Reports No Symptoms
Abdomen/GI: Reports Abdominal Pain, Nausea and Diarrhea
: Reports No Symptoms
Musculoskeletal: Reports No Symptoms
Skin: Reports No Symptoms
Neurological: Reports Weakness
Endocrine: Reports No Symptoms
Hematologic/Lymphatic: Reports No Symptoms
Psych: Reports No Symptoms
Physical Exam
Vital Signs
Vital Signs
Temp Pulse Resp BP Pulse Ox
101 F H 78 25 109/44 92
10/22/24 09:51 10/22/24 11:30 10/22/24 10:52 10/22/24 11:00 10/22/24 11:30
Physical Exam
General: Well Developed, Well Nourished and No Apparent Distress
HEENT: NormoCephalic, Moist mucous membranes and Atraumatic
Respiratory: Clear
Cardiac: S1/S2 and Regular Rhythm; No Murmur or Rub
GI: Soft, Non Tender, Non Distended and Normal Bowel Sounds; No Organomegaly
Rectal: Deferred by Provider
Musculoskeletal: No Clubbing, No Cyanosis and No Edema
Skin: Other (Bilateral lower extremities wound)
Neuro: AO x 3 and Nonfocal/grossly intact
Psych: Calm
Laboratory Results
-
10/22/24 10:01
10/22/24 10:01
Laboratory Results
Lactic Acid 1.2 mmol/L (0.7-2.0) 10/22/24 10:07
Data Reviewed
-
Diagnostic Radiology: Report Reviewed by me
Lab Data: Labs Reviewed by me
Impression/Plan
-
# Acute hypoxic respiratory failure secondary to influenza A
# Sepsis as evidenced by WBCs of 16, temp 101
- COVID-negative
- Chest x-ray with no acute pulmonary process. Unchanged cardiomegaly
- Blood culture sent from ER
- Continue supplemental oxygen to keep sat greater than 95, wean as tolerated
-Tamiflu continued
-mucinex for cough
# Abdominal pain/nausea//diarrhea likely from Influenza A/gastroenteritis
- Outpatient Abdominal x-ray with impression of ileus, no small bowel obstruction
- Will keep patient n.p.o.
- Obtain CT of abdomen pelvis and chest
- Meds with sips of fluids
# Anemia of chronic disease
- Hemoglobin stable at 10.6
-No active bleeding
- continue to monitor
# Hyponatremia pseudo in the setting of hyperglycemia
- Sodium 130, corrected sodium is 134
- Continue to monitor BMP
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
#Suspect severe PAD.
-Wound care consulted
#Wound culture with MRSA and ESBL, later postOP LLE Cx with Pseudomonas, MSSA, Proteus
- Plavix continued
- Patient scheduled for surgical intervention on November 03
#CAD with history of PCI
- Aspirin continued
'
#CHF unknown EF
-Strict ANNITA, daily weight
-Hold Lasix
#IDD with hyperglycemia
-sliding scale continued
-CHO diet
#Essential hypertension
# Hyperlipidemia
-Statin continued
-Hold Coreg and hydralazine due to low blood pressure
# GERD
- Omeprazole continue
# BPH
-Tamsulosin continued
Full code.
DVT prophylaxis Lovenox
[2024-10-22] MEDS: MUCINEX 600 MG PO ×2 (13:08→20:19)
--- NOTE | 2024-10-22 13:41 | W.PN.UPDATE ---
Update Note
Progress Note Update
This is an addendum to H&P written by Lorene Hilton on 10/22/2024.� Patient seen and examined independently with LONG DISTANCE BILLING OPERATOR.
79-year-old male past medical history of CAD status post PCI, HFpEF, hypertension, diabetes, BPH, obstructive sleep apnea on CPAP, chronic ambulatory dysfunction, PAD, chronic wounds of left lower extremity, diabetic neuropathy, presenting with
weakness, fever, cough, shortness of breath and diarrhea 2 days ago he is from rehab where there have been multiple instances of COVID and flu in the facility.
Patient septic with fever of 101, tachypnea and leukocytosis.� Influenza A positive.�
Blood sugar of 251.
Patient quite tender on abdominal examination.
Chest x-ray shows no acute pulmonary process.� Abdominal x-ray from from 2 days ago shows ileus, distended bowel loops and gas.
Patient with sepsis secondary to influenza A infection.� Urinalysis pending.� IV fluids, blood cultures pending, Tamiflu started.� Hold antihypertensive medications and Lasix.
Patient likely has ileus from gastroenteritis from influenza.� Diarrhea appears to have improved however given significant abdominal tenderness we will check CT chest and abdomen pelvis.� Keep n.p.o. for now.
Elevated blood sugar secondary to infection.� Insulin sliding scale.
As per daughter wounds of left lower extremity noninfected.� Wound care consulted.
[2024-10-22] MEDS: OMNIPAQUE 50 ML PO (14:03)
[2024-10-22 15:49] LABS: Glucose - Point of Care 229 mg/dl (70-99)
[2024-10-22] MEDS: NSS 1000 IV (16:03)
[2024-10-22] MEDS: NSS IV (16:03)
[2024-10-22] MEDS: TYLENOL 650 MG PO ×2 (16:04→22:41)
[2024-10-22] MEDS: NOVOLOG FLEXPEN-LOW RESISTANCE 2 UNITS SC (17:47)
[2024-10-22] MEDS: LOVENOX 40 MG SC (17:47)
[2024-10-22 18:07] LABS: Urine Albumin 2+ (Neg - Trace); Urine Bilirubin Negative (Negative); Urine Character Clear (Clear); Urine Color Yellow; Urine Glucose 2+ (Negative); Urine Ketone 1+ (Negative); Urine Leukocyte Negative (Negative); Urine Nitrite Negative (Negative); Urine Occult Blood 1+ (Negative); Urine Specific Gravity 1.015 (<1.030); Urine Urobilinogen Negative (Neg - 1+)
[2024-10-22 18:23] LABS: Urine Squamous Cell 0-2 /LPF (Few)
[2024-10-22 18:24] LABS: Urine Red Blood Cell 0-2 /HPF (0-2); Urine White Cell 0-2 /HPF (0-5)
[2024-10-22 18:25] LABS: Urine Sperm Seen
[2024-10-22] MEDS: DESENEX/MITRAZOL/ZEASORB 1 APPLIC TOPICAL (20:25)
[2024-10-22] MEDS: LIPITOR 10 MG PO (21:41)
[2024-10-22] MEDS: ZINC OXIDE OINTMENT 1 APPLIC TOPICAL (21:42)
--- NOTE | 2024-10-22 21:53 | W.PN.UPDATE ---
Update Note
Progress Note Update
CT with acute uncomplicated sigmoid colitis. initiated on iv zosyn
[2024-10-22] MEDS: ZOSYN 50 IV (22:19)
[2024-10-23] VITALS (7 sets, daily range): BP systolic 112–131; BP diastolic 46–55; BMI 29.3
[2024-10-23 00:08] LABS: Glucose - Point of Care 238 mg/dl (70-99)
[2024-10-23] MEDS: NOVOLOG FLEXPEN-LOW RESISTANCE 2 UNITS SC ×3 (00:51→23:06)
[2024-10-23] MEDS: NSS 1000 IV ×3 (00:52→23:07)
[2024-10-23] MEDS: ZOSYN 50 IV ×4 (03:54→21:16)
[2024-10-23 06:09] LABS: Glucose - Point of Care 175 mg/dl (70-99)
[2024-10-23 07:15] LABS: Hematocrit 28.3 % (39.0-52.0); Hemoglobin 9.6 g/dL (13.0-18.0); Mean Corp Hgb Conc. 33.9 g/dL (33.0-37.0); Mean Corpuscular Hgb 28.4 pg (27.0-31.0); Mean Corpuscular Volume 83.7 fL (80.0-94.0); Mean Platelet Volume 9.7 fL (7.4-10.4); Platelet Count 369 10^3/uL (130-400); Red Blood Cell Count 3.38 10^6/uL (4.70-6.10); Red Cell Dist. Width 14.6 % (11.5-14.5); White Blood Cell Count 13.5 10^3/uL (4.8-10.8)
[2024-10-23 07:17] LABS: Blood Urea Nitrogen 16 mg/dl (9-20); Calcium 8.6 mg/dl (8.4-10.2); Carbon Dioxide 25 mmol/L (22-30); Chloride 100 mmol/L (98-107); Estimated Creatinine Clearance 86 ml/min; Glucose 178 mg/dl (70-99); Potassium 4.1 mmol/L (3.5-5.1); Sodium 132 mmol/L (135-145); eGFR > 60.00
[2024-10-23] MEDS: NOVOLOG FLEXPEN-LOW RESISTANCE SC (09:37)
[2024-10-23] MEDS: ASPIR LOW (ENTERIC COATED) PO (09:38)
[2024-10-23] MEDS: DESENEX/MITRAZOL/ZEASORB 1 APPLIC TOPICAL ×2 (09:38→19:30)
[2024-10-23] MEDS: MUCINEX PO (09:39)
[2024-10-23] MEDS: PROTONIX PO (09:39)
[2024-10-23] MEDS: TAMIFLU PO (09:39)
[2024-10-23] MEDS: PLAVIX PO (09:39)
[2024-10-23] MEDS: FLOMAX PO (09:39)
[2024-10-23] MEDS: KCL PO (09:39)
[2024-10-23] MEDS: ZINC OXIDE OINTMENT 1 APPLIC TOPICAL ×3 (09:40→21:16)
[2024-10-23 10:54] LABS: Glycohemoglobin (HgbA1c) 9.5 % (4.0-5.6)
--- NOTE | 2024-10-23 11:10 | W.PN.HOSP.TC ---
Today's Communication/Plan
-
Monitor cognitive status closely.
Empiric antibiotics
Tamiflu.
Aspiration precautions/speech evaluation.
IV fluids holding diuretics and antihypertensives avoiding hypotension
Follow BMP and CBC.
Wound care.
Basal bolus protocol with serial Accu-Cheks
Assessment / Plan
Assessment / Plan
Impression:
Toxic metabolic encephalopathy secondary to infection
Influenza A bronchitis
Left-sided colitis
Sepsis present on admission (TME, fever, hypotension, leukocytosis)
Hypotension multifactorial likely in the settings of low volume status. Responded to IV fluids
Hyponatremia
Aspiration risk
Other conditions:
CAD with history of PTCA details unknown.
PAD status post bilateral lower extremity revascularization in 2023
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
Chronic CHF preserved EF.
Essential hypertension
IDDM
Anemia of chronic disease
BPH
GERD
Obstructive sleep apnea on nightly CPAP previously
Chronic ambulatory dysfunction, multifactorial due to diabetic neuropathy, PAD, cognitive status
Dementia likely vascular type
Plan:
Toxic metabolic encephalopathy likely multifactorial in the settings of infection including influenza A and colitis. Remains febrile.
Continue supportive care.
Continue IV hydration
Close neurologic monitoring.
If remains lethargic beyond [address] of the head, ABG.
Influenza A bronchitis.
Not hypoxic.
Imaging with chest x-ray and CT with no evidence of parenchymal infiltrates
Continue Tamiflu.
Given altered mental status remains aspiration risk.
Speech and swallow evaluation
Left-sided colitis
Patient complains of left-sided pain
CT scan consistent with sigmoid colitis with differential infectious versus ischemic. Patient is at the high risk for latest (CAD/PAD)
Reported loose stools without hematochezia
If diarrhea, check stool for C. difficile and stool for cultures
Empiric treatment with Zosyn initiated on 10/22.
Clear liquid diet after speech and swallow clearance
PAD
Extensive bilateral revascularization procedures in 2023
Chronic trophic wounds.
Continue wound care.
Continue statin.
Continue DAPT
Patient scheduled for vascular procedure on November 03. Will discuss with vascular surgery while patient in the hospital
CAD with prior history of revascularization.
Remains on DAPT and statin.
On Coreg DELIVERY RECRUITER
Chronic CHF preserved EF
Preadmission regimen including Coreg, hydralazine, doxazosin, furosemide
Hold diuretics acutely. Monitor volume status while on IV fluids for infection/sepsis resuscitation
Adjust GDMT eventually consider transition to JEANNA/ARB's, consider SGLT2 inhibitor
Type 2 diabetes/IDDM 2
Updated hemoglobin A1c 9.5.
Patient previously on standing dose of Lantus/NovoLog, not currently.
Continue basal bolus protocol.
Adjust insulin regimen as diet has been advanced
GERD continue PPI
BPH baseline monitor for retention.
Continue Flomax
Anticipated Discharge: > 48 hours
Subjective/Interval History
-
Date of Service: October 23, 2024
Objective Data
-
Labs:
Laboratory Results
10/23/24
06:19
WBC 13.5 H
Hgb 9.6 L
Hct 28.3 L
Plt Count 369
Sodium 132 L
Potassium 4.1
Chloride 100
Carbon Dioxide 25
BUN 16
Creatinine 0.7
Glucose 178 H
Calcium 8.6
Vital Signs:
Vital Signs
Temp Pulse Resp BP Pulse Ox
100.6 F H 85 18 129/51 93
10/23/24 07:00 10/23/24 07:00 10/23/24 07:00 10/23/24 07:00 10/23/24 10:17
I&O
10/22/24 10/23/24 10/24/24
06:59 06:59 06:59
Intake Total 250 / 250
Balance 250 / 250
Physical Exam
-
General: Well Developed and No Apparent Distress
HEENT: Normocephalic, Atraumatic and Moist Mucous Membranes
Respiratory: Clear to Auscultation
Cardiac: Regular Rhythm and S1/S2; Negative Murmur, Rub or Gallop
GI: Soft, Nontender, Nondistended and Normal Bowel Sounds; Negative Organomegaly
Rectal: Deferred by Provider
Musculoskeletal: No Clubbing, No Cyanosis and No Edema
Skin: Negative Rash
Neuro: Other (Lethargic, moves all extremities, although overall with limited neurologic exam due to lethargy)
--- NOTE | 2024-10-23 11:36 | PTCARENOTE ---
Patient drowsy and lethargic this am. Arousable to voice for period of time. Refused his po am medications. Pt with productive cough. Dr. wilkins made aware and pt seen by this am. No s/s of distress noted. Plan of care ongoing.
--- NOTE | 2024-10-23 11:55 | WOUNDNOTE ---
L GREAT TOE TIP
--- NOTE | 2024-10-23 11:55 | WOUNDNOTE ---
L CALF/HEEL (POSTERIOR)
--- NOTE | 2024-10-23 11:56 | WOUNDNOTE ---
R 4TH TOE
--- NOTE | 2024-10-23 11:57 | CM ---
Addendum entered by Mikayla Morris 10/23/24 14:47:
Spoke with pts daughter at bedside
Confirms pt from [facility] - to return when medically ready
Updates sent
Plan - anticipate return to [facility] at d/c
Original Note:
Pt is a LT resident at [facility]
Requires assist with all ADL's
Called pts daughter to complete IA. LM with call back number requesting return call
LM with Almita at [facility]
Will send updates in [facility]
Plan - anticipate return to [facility] at d/c
--- NOTE | 2024-10-23 12:00 | WOUNDNOTE ---
[facility] RN note: Patient admitted with flu. Patient resides at a [facility]. Daughter Eugenia visiting. Patient is on vascular schedule for a procedure on 11/03/24.
See H&P for complete history.
PMH: cellulitis, PAD, CHF, dementia, UT, BPH, dysphagia, HTN, lymphedema, former smoker, zinc oxide, angioplasty for PAD, leg and L heel debridement.
Wound Location and type/assessment: Patient admitted with: full thickness leg wounds r/t venous and arterial insufficiency, some wounds were to tendon/muscle. Wounds mostly pink. R posterior calf ulcer with yellow slough. Stage 3 sacral pressure
injury. Buttocks stage 2 along with MASD. Kavita MASD. L heel callus/scar with non blanchable red skin. R heel red scarred. L dorsal 4th toe dry scab. R great toenail tip dry black scab. Trace pedal edema. R pedal pulse and L PT pulses heard via
portable Doppler. Abdominal/groin MASD.
Appetite: NPO currently. ST on consult.
Pressure redistribution devices in place: [employer] Accumax. Patient's TruVue lite boots. Patient cannot turn self in bed. JOHN Garcia agreeable to static air overlay.
Plan: LE dressings changed, padded heels with ABD pad. Sacral/buttocks silicone border foam changed. Patient turned to R semi side lying position with help from DASHAWN Strickland. TruVue lite boots reapplied. Air chair cushion given. Daughter stated she
spoke with Dr. Sutton about updating Dr. Millan.
Will confirm orders with Dr. Sutton and updated JOHN Garcia.
Care plan to be updated and will follow as needed.
Note to case management of equipment requested for discharge: Air mattress at SNF if not already in place.
Recommend follow up with wound home care music therapist and with Dr. Millan.
[2024-10-23 12:14] LABS: Glucose - Point of Care 165 mg/dl (70-99)
[2024-10-23] MEDS: NOVOLOG FLEXPEN-LOW RESISTANCE 1 UNITS SC (12:22)
[2024-10-23] MEDS: TYLENOL 650 MG PO ×2 (15:04→21:34)
[2024-10-23] MEDS: ROBITUSSIN 200 MG PO (15:05)
--- NOTE | 2024-10-23 16:18 | PTOTSP ---
Speech Language Pathology:
Initial speech therapy assessment completed at bedside. Limited PO trials completed due to lethargy at time of assessment with inconsistent tolerance of trials assessed. Patient presents with elevated aspiration risk due to current mental status.
Recommend:
1) Continued NPO
2) Essential meds with single cup sips of thins as tolerated ONLY when awake/alert
ST to f/u to reassess and determine appropriateness for PO diet initiation. Discussed recommendations with RN and MD.
[2024-10-23 17:34] LABS: Glucose - Point of Care 223 mg/dl (70-99)
[2024-10-23] MEDS: NSS IV (17:49)
[2024-10-23] MEDS: LOVENOX 40 MG SC (18:34)
[2024-10-23] MEDS: TAMIFLU 75 MG PO (19:31)
[2024-10-23] MEDS: LIPITOR 10 MG PO (21:13)
[2024-10-23 23:06] LABS: Glucose - Point of Care 207 mg/dl (70-99)
[2024-10-24 03:00] VITALS: BP 124/85
[2024-10-24] MEDS: ZOSYN 50 IV ×4 (03:32→21:35)
[2024-10-24] MEDS: TYLENOL 650 MG PO ×2 (03:32→19:55)
[2024-10-24 05:24] VITALS: BMI 30.6
[2024-10-24] MEDS: NOVOLOG FLEXPEN-LOW RESISTANCE 1 UNITS SC ×2 (05:58→18:40)
[2024-10-24 05:59] LABS: Glucose - Point of Care 152 mg/dl (70-99)
[2024-10-24 06:25] LABS: % Basophils 0.3 % (0-2); % Eosinophils 0.1 % (0-6); % Immature Granulocytes 0.5 % (0-0.5); % Lymphocytes 9.1 % (20.5-51.1); % Monocytes 9.6 % (1.7-9.3); % Neutrophils 80.4 % (42.2-75.2); Absolute Immature Granulocytes 0.1 10^3/uL (0-0.05); Absolute Lymphocytes 1.4 10^3/uL (1.2-3.4); Absolute Monocytes 1.5 10^3/uL (0.1-0.6); Absolute Neutrophils 12.2 10^3/uL (1.4-6.5); Hematocrit 27.8 % (39.0-52.0); Hemoglobin 9.4 g/dL (13.0-18.0); Mean Corp Hgb Conc. 33.8 g/dL (33.0-37.0); Mean Corpuscular Hgb 28.3 pg (27.0-31.0); Mean Corpuscular Volume 83.7 fL (80.0-94.0); Mean Platelet Volume 9.5 fL (7.4-10.4); Nucleated Red Blood Cells % 0 % (-); Platelet Count 335 10^3/uL (130-400); Red Blood Cell Count 3.32 10^6/uL (4.70-6.10); Red Cell Dist. Width 14.6 % (11.5-14.5); White Blood Cell Count 15.2 10^3/uL (4.8-10.8)
[2024-10-24 06:47] LABS: Blood Urea Nitrogen 11 mg/dl (9-20); Estimated Creatinine Clearance 113 ml/min; Glucose 142 mg/dl (70-99)
[2024-10-24 06:48] LABS: ALT (SGPT) 12 U/L (0-50); AST (SGOT) 21 U/L (17-59); Albumin 2.4 g/dl (3.5-5.0); Alkaline Phosphatase 78 U/L (38-126); Calcium 7.9 mg/dl (8.4-10.2); Carbon Dioxide 20 mmol/L (22-30); Chloride 103 mmol/L (98-107); Potassium 3.5 mmol/L (3.5-5.1); Sodium 132 mmol/L (135-145); Total Bilirubin 0.5 mg/dl (0.2-1.3); eGFR > 60.00
[2024-10-24 06:59] VITALS: BP 126/50
[2024-10-24] MEDS: NSS 1000 IV (08:21)
[2024-10-24] MEDS: ZINC OXIDE OINTMENT 1 APPLIC TOPICAL ×3 (08:22→21:36)
[2024-10-24] MEDS: KCL 20 MEQ PO (08:23)
[2024-10-24] MEDS: TAMIFLU 75 MG PO ×2 (08:23→19:55)
[2024-10-24] MEDS: ASPIR LOW (ENTERIC COATED) 81 MG PO (08:23)
[2024-10-24] MEDS: FLOMAX 0.4 MG PO (08:23)
[2024-10-24] MEDS: PROTONIX 40 MG PO (08:23)
[2024-10-24] MEDS: DESENEX/MITRAZOL/ZEASORB 1 APPLIC TOPICAL ×2 (08:24→19:55)
[2024-10-24] MEDS: PLAVIX 75 MG PO (08:24)
[2024-10-24] MEDS: ROBITUSSIN 200 MG PO ×2 (10:22→15:03)
[2024-10-24 11:00] VITALS: BP 124/76
--- NOTE | 2024-10-24 11:47 | VATNOTE ---
Called by PCN to evaluate pt's PIV, PIV infiltrated. Swelling noted. Pt denies pain unless IV is flushed. PIV removed and new IV established. Site of infiltration elevated and heat applied.
--- NOTE | 2024-10-24 11:55 | CM ---
Pt is group home at [facility].
He is assisted in all ADL's
PT checked with [facility] family requested bed bound status till leg wounds heal.Upper ext exercises.
Does not need auth/ Will need ambulance.
Plan - Return to [facility] when medically stable
[2024-10-24 11:58] LABS: Glucose - Point of Care 213 mg/dl (70-99)
[2024-10-24] MEDS: NOVOLOG FLEXPEN-LOW RESISTANCE 2 UNITS SC (13:00)
--- NOTE | 2024-10-24 14:20 | PN.CDI ---
CDI
- -
CDI:
Physician Documentation Request
Admit Date: 10/22/24 13:09
Dear Doctor Lesley,
10/23 WOCN notes 'Stage 3 sacral pressure injury. Buttocks stage 2 along with MASD'
Physician documentation of the type and location of wounds is required for compliant documentation. Based on the above clinical findings and your assessment, please provide the following in your progress note:
1. Location of the ulcer/wound, including laterality.
2. Type (etiology) of ulcer/wound:
- Traumatic wound
- Pressure (decubitus) ulcer
- Other
Use of terms such as suspected, likely, concern for, or probable (associated with a specific diagnosis that is being evaluated, monitored, or treated as if it exists) are acceptable and can be coded in the inpatient setting, when documented at the
time of discharge.
Thank you,
Jane Delarosa RN, BSN
CDI Specialist
tiger text
Please use your independent medical judgment in providing your response.
*Source: National Pressure Ulcer Advisory Panel (NPUAP)
[2024-10-24 15:00] VITALS: BP 130/47
[2024-10-24] MEDS: LOVENOX SC ×2 (17:07→17:14)
[2024-10-24] MEDS: NSS with KCL 20 MEQ 1000 IV (17:08)
--- NOTE | 2024-10-24 17:37 | W.PN.HOSP.TC ---
Today's Communication/Plan
-
Mental status improved.
Diet has been advanced with aspiration precautions.
Continue IV fluids, replete potassium. Wean off if sufficient oral intake.
Continue Tamiflu.
Continue Zosyn pending final stool cultures.
CBC/BMP in AM.
Assessment / Plan
Assessment / Plan
Impression:
Toxic metabolic encephalopathy secondary to infection
Influenza A bronchitis
Left-sided colitis
Sepsis present on admission (TME, fever, hypotension, leukocytosis)
Hypotension multifactorial likely in the settings of low volume status. Responded to IV fluids
Hyponatremia
Aspiration risk
Other conditions:
CAD with history of PTCA details unknown.
PAD status post bilateral lower extremity revascularization in 2023
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
Chronic CHF preserved EF.
Essential hypertension
IDDM
Anemia of chronic disease
BPH
GERD
Obstructive sleep apnea on nightly CPAP previously
Chronic ambulatory dysfunction, multifactorial due to diabetic neuropathy, PAD, cognitive status
Dementia likely vascular type
Plan:
Toxic metabolic encephalopathy likely multifactorial in the settings of infection including influenza A and colitis. Remains febrile.
Continue supportive care.
Continue IV hydration
Close neurologic monitoring.
Mental status improved and patient has been more interactive today.
Influenza A bronchitis.
Not hypoxic.
Imaging with chest x-ray and CT with no evidence of parenchymal infiltrates
Continue Tamiflu.
Given altered mental status remains aspiration risk.
Speech evaluation.
Diet has been advanced with aspiration precaution
Left-sided colitis
Infectious versus ischemic (latest most likely given dehydration and underlying vasculopathy)
Patient complains of left-sided pain
CT scan consistent with sigmoid colitis with differential infectious versus ischemic. Patient is at the high risk for latest (CAD/PAD)
Reported loose stools without hematochezia
Stool negative for C. difficile. Cultures pending.
Empiric treatment with Zosyn initiated on 10/22.
Advance diet
PAD
Extensive bilateral revascularization procedures in 2023
Chronic trophic wounds.
Continue wound care.
Continue statin.
Continue DAPT
Patient scheduled for vascular procedure on November 03. Will discuss with vascular surgery while patient in the hospital
CAD with prior history of revascularization.
Remains on DAPT and statin.
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
Chronic CHF preserved EF
Preadmission regimen including Coreg, hydralazine, doxazosin, furosemide
Hold diuretics acutely. Monitor volume status while on IV fluids for infection/sepsis resuscitation
Adjust GDMT eventually consider transition to JEANNA/ARB's, consider SGLT2 inhibitor
Type 2 diabetes/IDDM 2
Updated hemoglobin A1c 9.5.
Patient previously on standing dose of Lantus/NovoLog, not currently.
Continue basal bolus protocol.
Adjust insulin regimen as diet has been advanced
GERD continue PPI
BPH baseline monitor for retention.
Continue Flomax
Anticipated Discharge: > 48 hours
Subjective/Interval History
-
Date of Service: October 24, 2024
Objective Data
-
Labs:
Laboratory Results
10/24/24 10/24/24
06:00 06:01
WBC 15.2 H
Hgb 9.4 L
Hct 27.8 L
Plt Count 335
Sodium 132 L
Potassium 3.5
Chloride 103
Carbon Dioxide 20 L
BUN 11
Creatinine 0.6 L
Glucose 142 H
Calcium 7.9 L
Total Bilirubin 0.5
AST 21
ALT 12
Alkaline Phosphatase 78
Vital Signs:
Vital Signs
Temp Pulse Resp BP Pulse Ox
97.8 F 74 18 130/47 92
10/24/24 15:00 10/24/24 15:00 10/24/24 15:00 10/24/24 15:00 10/24/24 15:00
I&O
10/23/24 10/24/24 10/25/24
06:59 06:59 06:59
Intake Total 250 / 250 2610 / 2610
Output Total 425 / 425
Balance 250 / 250 2185 / 2185
Physical Exam
-
General: Well Developed and No Apparent Distress
HEENT: Normocephalic, Atraumatic and Moist Mucous Membranes
Respiratory: Clear to Auscultation
Cardiac: Regular Rhythm and S1/S2; Negative Murmur, Rub or Gallop
GI: Soft, Nontender, Nondistended and Normal Bowel Sounds; Negative Organomegaly
Rectal: Deferred by Provider
Musculoskeletal: No Clubbing, No Cyanosis and No Edema
Skin: Negative Rash
Neuro: Other (Lethargic, moves all extremities, although overall with limited neurologic exam due to lethargy)
[2024-10-24 18:39] LABS: Glucose - Point of Care 187 mg/dl (70-99)
[2024-10-24 19:00] VITALS: BP 138/48
[2024-10-24] MEDS: LIPITOR 10 MG PO (21:34)
[2024-10-24 21:45] LABS: Glucose - Point of Care 195 mg/dl (70-99)
[2024-10-24 23:04] VITALS: BP 137/49
[2024-10-25] VITALS (7 sets, daily range): BP systolic 100–169; BP diastolic 46–66; BMI 31.2
[2024-10-25] MEDS: ZOSYN 50 IV ×4 (03:03→21:09)
[2024-10-25] MEDS: NSS with KCL 20 MEQ 1000 IV ×2 (03:03→14:08)
[2024-10-25] MEDS: TYLENOL 650 MG PO ×2 (04:37→15:27)
[2024-10-25 06:50] LABS: Hematocrit 27.7 % (39.0-52.0); Hemoglobin 9.2 g/dL (13.0-18.0); Mean Corp Hgb Conc. 33.2 g/dL (33.0-37.0); Mean Corpuscular Hgb 27.9 pg (27.0-31.0); Mean Corpuscular Volume 83.9 fL (80.0-94.0); Mean Platelet Volume 9.3 fL (7.4-10.4); Platelet Count 387 10^3/uL (130-400); Red Cell Dist. Width 14.9 % (11.5-14.5); White Blood Cell Count 13.1 10^3/uL (4.8-10.8)
--- NOTE | 2024-10-25 07:02 | W.PN.HOSP.TC ---
Today's Communication/Plan
-
Continue current diet with aspiration precautions.
Wean off IV fluids -- patient is eating and drinking
Check CXR given possible fluid overload/some crackles on exam. Also check proBNP.
Check AXR given concern by nurse abdomen might be more distended
Continue Tamiflu.
Continue Zosyn pending final stool cultures.
CBC/BMP in AM.
Assessment / Plan
Assessment / Plan
Physical Exam
General: Well Developed and No Apparent Distress
HEENT: Normocephalic, Atraumatic and Moist Mucous Membranes
Respiratory: Clear to Auscultation Bilaterally
Cardiac: Regular Rhythm and S1/S2
GI: Soft, Nontender, Nondistended and Normal Bowel Sounds
Musculoskeletal: No Cyanosis and No Edema
Skin: Warm. Dry.
Neuro: Alert. Awake.
Impression:
Toxic metabolic encephalopathy secondary to infection
Influenza A bronchitis
Left-sided colitis
Sepsis present on admission (TME, fever, hypotension, leukocytosis)
Hypotension multifactorial likely in the settings of low volume status. Responded to IV fluids
Hyponatremia
Aspiration risk
Other conditions:
CAD with history of PTCA details unknown.
PAD status post bilateral lower extremity revascularization in 2023
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
Chronic CHF preserved EF.
Essential hypertension
IDDM
Anemia of chronic disease
BPH
GERD
Obstructive sleep apnea on nightly CPAP previously
Chronic ambulatory dysfunction, multifactorial due to diabetic neuropathy, PAD, cognitive status
Dementia likely vascular type
Plan:
Toxic metabolic encephalopathy likely multifactorial in the settings of infection including influenza A and colitis. Remains febrile -- last fever was 10/25/24 at 4:35 AM (received Tylenol)
Continue supportive care.
Stop IV Hydration as patient is now eating and drinking
Close neurologic monitoring.
Mental status improved and patient has been more interactive today.
Influenza A bronchitis.
Not hypoxic.
Imaging with chest x-ray and CT with no evidence of parenchymal infiltrates
Continue Tamiflu.
Given altered mental status remains aspiration risk.
Speech evaluation.
Diet has been advanced with aspiration precaution
Chronic HFpEF
Lungs sound a bit wet as of 10/25/24
Check CXR, proBNP given history of CHF
Stopped IV fluids as blood pressure is now high and patient is eating and drinking
PO FR 48 ounces daily given CHF+Hyponatremia
Left-sided colitis
Infectious versus ischemic (latest most likely given dehydration and underlying vasculopathy)
Patient complains of left-sided pain
CT scan consistent with sigmoid colitis with differential infectious versus ischemic. Patient is at the high risk for latest (CAD/PAD)
Reported loose stools without hematochezia
Stool negative for C. difficile. Cultures pending.
Empiric treatment with Zosyn initiated on 10/22.
Advance diet -- currently on IDDSI 5 Minced and Moist & Thin Liquids -- patient's nurse said
PAD
Extensive bilateral revascularization procedures in 2023
Chronic trophic wounds.
Continue wound care.
Continue statin.
Continue DAPT
Patient scheduled for vascular procedure on November 03. Will discuss with vascular surgery while patient in the hospital
CAD with prior history of revascularization.
Remains on DAPT and statin.
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
Chronic CHF preserved EF
Preadmission regimen including Coreg, hydralazine, doxazosin, furosemide
Hold diuretics acutely. Monitor volume status while on IV fluids for infection/sepsis resuscitation
Adjust GDMT eventually consider transition to JEANNA/ARB's, consider SGLT2 inhibitor
Hypertension
Resumed Hydralazine on 10/25/24 given high blood pressure
Type 2 diabetes/IDDM 2
Updated hemoglobin A1c 9.5.
Patient previously on standing dose of Lantus/NovoLog, not currently.
Continue basal bolus protocol.
Adjust insulin regimen as diet has been advanced
GERD continue PPI
BPH baseline monitor for retention.
Continue Flomax
Anticipated Discharge: > 48 hours
Subjective/Interval History
-
Date of Service: October 25, 2024
Patient was seen and examined. He denied any symptoms or complaints.
Objective Data
-
Labs:
Laboratory Results
10/25/24
05:57
WBC 13.1 H
Hgb 9.2 L
Hct 27.7 L
Plt Count 387
Sodium Pending
Potassium Pending
Chloride Pending
Carbon Dioxide Pending
BUN Pending
Creatinine Pending
Glucose Pending
Calcium Pending
Vital Signs:
Vital Signs
Temp Pulse Resp BP Pulse Ox
99.7 F 81 16 100/66 93
10/25/24 05:34 10/25/24 03:06 10/25/24 03:06 10/25/24 03:06 10/25/24 03:06
I&O
10/24/24 10/25/24 10/26/24
06:59 06:59 06:59
Intake Total 2610 / 2610 3040 / 3040
Output Total 425 / 425 750 / 750
Balance 2185 / 2185 2290 / 2290
[2024-10-25 07:06] LABS: Blood Urea Nitrogen 6 mg/dl (9-20); Calcium 7.6 mg/dl (8.4-10.2); Carbon Dioxide 22 mmol/L (22-30); Chloride 104 mmol/L (98-107); Estimated Creatinine Clearance 114 ml/min; Glucose 147 mg/dl (70-99); Potassium 3.6 mmol/L (3.5-5.1); Sodium 133 mmol/L (135-145); eGFR > 60.00
[2024-10-25 08:03] LABS: Glucose - Point of Care 137 mg/dl (70-99)
[2024-10-25] MEDS: NOVOLOG FLEXPEN-LOW RESISTANCE SC (08:30)
[2024-10-25] MEDS: TAMIFLU 75 MG PO ×2 (10:32→21:06)
[2024-10-25] MEDS: PROTONIX 40 MG PO (10:33)
[2024-10-25] MEDS: ASPIR LOW (ENTERIC COATED) 81 MG PO (10:33)
[2024-10-25] MEDS: PLAVIX 75 MG PO (10:33)
[2024-10-25] MEDS: KCL 20 MEQ PO (10:33)
[2024-10-25] MEDS: HYDROPHOR 1 APPLIC TOPICAL (10:34)
[2024-10-25] MEDS: FLOMAX 0.4 MG PO (10:34)
[2024-10-25] MEDS: DESENEX/MITRAZOL/ZEASORB 1 APPLIC TOPICAL ×2 (10:34→21:05)
[2024-10-25] MEDS: ZINC OXIDE OINTMENT 1 APPLIC TOPICAL ×3 (10:35→21:08)
[2024-10-25 12:32] LABS: Glucose - Point of Care 232 mg/dl (70-99)
[2024-10-25] MEDS: ROBITUSSIN 200 MG PO ×2 (12:33→18:23)
[2024-10-25] MEDS: APRESOLINE 10 MG PO ×3 (12:33→21:06)
[2024-10-25] MEDS: NOVOLOG FLEXPEN-LOW RESISTANCE 2 UNITS SC (14:10)
[2024-10-25 16:57] LABS: Glucose - Point of Care 199 mg/dl (70-99)
[2024-10-25] MEDS: NOVOLOG FLEXPEN-LOW RESISTANCE 1 UNITS SC (18:22)
[2024-10-25] MEDS: LOVENOX 40 MG SC (18:23)
[2024-10-25] MEDS: LIPITOR 10 MG PO (21:06)
[2024-10-25 21:33] LABS: Glucose - Point of Care 171 mg/dl (70-99)
[2024-10-25 21:34] LABS: NT-proBNP 2970 pg/ml
[2024-10-26] MEDS: TYLENOL 650 MG PO ×4 (00:04→20:27)
[2024-10-26] MEDS: ROBITUSSIN 200 MG PO ×4 (00:04→14:27)
[2024-10-26 03:11] VITALS: BP 141/58
[2024-10-26] MEDS: ZOSYN 50 IV ×4 (04:34→22:19)
[2024-10-26 05:53] VITALS: BMI 31.7
[2024-10-26 07:00] VITALS: BP 141/55
[2024-10-26 07:45] LABS: Glucose - Point of Care 135 mg/dl (70-99)
[2024-10-26] MEDS: NOVOLOG FLEXPEN-LOW RESISTANCE SC ×2 (07:53→12:38)
[2024-10-26] MEDS: KCL 20 MEQ PO (08:12)
[2024-10-26] MEDS: PLAVIX 75 MG PO (08:13)
[2024-10-26] MEDS: ASPIR LOW (ENTERIC COATED) 81 MG PO (08:13)
[2024-10-26] MEDS: APRESOLINE 10 MG PO (08:13)
[2024-10-26] MEDS: FLOMAX 0.4 MG PO (08:13)
[2024-10-26] MEDS: PROTONIX 40 MG PO (08:13)
[2024-10-26] MEDS: TAMIFLU 75 MG PO ×2 (08:13→20:10)
[2024-10-26] MEDS: DESENEX/MITRAZOL/ZEASORB 1 APPLIC TOPICAL ×2 (08:15→20:10)
[2024-10-26] MEDS: ZINC OXIDE OINTMENT 1 APPLIC TOPICAL ×3 (08:16→22:19)
[2024-10-26] MEDS: HYDROPHOR 1 APPLIC TOPICAL (08:17)
[2024-10-26] MEDS: LASIX 20 MG IV ×2 (08:23→16:49)
[2024-10-26 09:01] LABS: Hematocrit 28.8 % (39.0-52.0); Hemoglobin 9.6 g/dL (13.0-18.0); Mean Corp Hgb Conc. 33.3 g/dL (33.0-37.0); Mean Corpuscular Hgb 27.7 pg (27.0-31.0); Mean Corpuscular Volume 83.2 fL (80.0-94.0); Mean Platelet Volume 8.8 fL (7.4-10.4); Platelet Count 372 10^3/uL (130-400); Red Blood Cell Count 3.46 10^6/uL (4.70-6.10); White Blood Cell Count 9.9 10^3/uL (4.8-10.8)
[2024-10-26 09:05] LABS: Blood Urea Nitrogen 4 mg/dl (9-20); Calcium 8.3 mg/dl (8.4-10.2); Carbon Dioxide 25 mmol/L (22-30); Chloride 103 mmol/L (98-107); Estimated Creatinine Clearance 115 ml/min; Glucose 140 mg/dl (70-99); Potassium 3.7 mmol/L (3.5-5.1); Sodium 133 mmol/L (135-145); eGFR > 60.00
[2024-10-26 09:28] LABS: % Basophils 0.2 % (0-2); % Eosinophils 1.2 % (0-6); % Immature Granulocytes 1.5 % (0-0.5); % Neutrophils 68.1 % (42.2-75.2); Absolute Eosinophils 0.1 10^3/uL (0-0.7); Absolute Immature Granulocytes 0.2 10^3/uL (0-0.05); Absolute Monocytes 0.9 10^3/uL (0.1-0.6); Absolute Neutrophils 6.7 10^3/uL (1.4-6.5); Nucleated Red Blood Cells % 0 % (-)
--- NOTE | 2024-10-26 11:19 | W.PN.HOSP.TC ---
Today's Communication/Plan
-
IV Lasix given pulmonary edema, CHF exacerbation
Continue antibiotics -- leukocytosis resolved
Resume Coreg
Spoke with patient's daughter today
Assessment / Plan
Assessment / Plan
Physical Exam
General: Well Developed and No Apparent Distress
HEENT: Normocephalic, Atraumatic and Moist Mucous Membranes
Respiratory: Clear to Auscultation Bilaterally
Cardiac: Regular Rhythm and S1/S2
GI: Soft, Nontender, Nondistended and Normal Bowel Sounds
Musculoskeletal: No Cyanosis and No Edema
Skin: Warm. Dry.
Neuro: Alert. Awake.
Impression:
Toxic metabolic encephalopathy secondary to infection
Influenza A bronchitis
Left-sided colitis
Sepsis present on admission (TME, fever, hypotension, leukocytosis)
Hypotension multifactorial likely in the settings of low volume status. Responded to IV fluids. Now Resolved.
Mild Acute on Chronic HFpEF.
Hyponatremia
Aspiration risk
Probable small left pleural effusion on chest x-ray
Other conditions:
CAD with history of PTCA details unknown.
Severe calcific atherosclerotic plaque in the thoracic aorta and coronary arteries on chest x-ray
PAD status post bilateral lower extremity revascularization in 2023
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
Chronic CHF preserved EF.
Essential hypertension
IDDM
Anemia of chronic disease
BPH
GERD
Obstructive sleep apnea on nightly CPAP previously
Chronic ambulatory dysfunction, multifactorial due to diabetic neuropathy, PAD, cognitive status
Dementia likely vascular type
Plan:
Toxic metabolic encephalopathy likely multifactorial in the settings of infection including influenza A and colitis. Remains febrile -- last fever was 10/25/24 at 4:35 AM (received Tylenol)
Continue supportive care.
Stopped IV Hydration on 10/25/24 as patient was eating and drinking
Close neurologic monitoring.
Mental status improved significantly and patient has been more interactive.
Influenza A bronchitis.
Not hypoxic.
Imaging with chest x-ray and CT with no evidence of parenchymal infiltrates
Continue Tamiflu.
Given altered mental status remains aspiration risk.
Speech evaluation.
Diet has been advanced with aspiration precaution
Acute on Chronic HFpEF
Lungs sounded a bit wet as of 10/25/24. Daughter Collette mentioned patient appeared a bit more SOB.
CXR 10/25/24 with pulmonary edema, proBNP elevated at 2970 (which is highly specific for CHF even when corrected for his age)
Stopped IV fluids on 10/25/24 as above
PO FR 48 ounces daily given CHF+Hyponatremia
Started IV Lasix 20 mg BID
Remains on room air
Daily Weights
I's and O's
Left-sided colitis
Infectious versus ischemic (latest most likely given dehydration and underlying vasculopathy)
Patient complains of left-sided pain -- currently appears comfortable, getting Tylenol as needed.
CT scan consistent with sigmoid colitis with differential infectious versus ischemic. Patient is at the high risk for latest (CAD/PAD)
Reported loose stools without hematochezia
Stool negative for C. difficile. Cultures coming back as mostly negative, shiga toxin still pending.
Blood cultures with no growth to date.
Empiric treatment with Zosyn initiated on 10/22. Leukocytosis resolved as of 10/26/24.
Advance diet -- currently on IDDSI 5 Minced and Moist & Thin Liquids
PAD
Extensive bilateral revascularization procedures in 2023
Chronic trophic wounds.
Continue wound care.
Continue statin.
Continue DAPT
Patient scheduled for vascular procedure on November 03. Will discuss with vascular surgery while patient in the hospital
CAD with prior history of revascularization.
Remains on DAPT and statin.
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
Chronic CHF preserved EF
Preadmission regimen including Coreg, hydralazine, doxazosin, furosemide
Holding home PO Lasix, but started IV Lasix as above for CHF exacerbation
Resumed Hydralazine on 10/25/24
Resume Coreg on 10/26/24 as appears patient blood pressure appears elevated and HR is good
Adjust GDMT eventually consider transition to JEANNA/ARB's, consider SGLT2 inhibitor
Hypertension
Resumed Hydralazine on 10/25/24 given high blood pressure
Also resuming Coreg on 10/26/24 as above
Getting IV Lasix
Type 2 diabetes/IDDM 2
Updated hemoglobin A1c 9.5.
Patient previously on standing dose of Lantus/NovoLog, not currently.
Continue basal bolus protocol.
Currently glucose range 140 to 180 which is acceptable range while hospitalized
Adjust insulin regimen as diet has been advanced
GERD continue PPI
BPH baseline monitor for retention.
Continue Flomax
Today, I spoke over the phone with patient's daughter Collette Dumont in the presence of the patient. Patient was refusing labwork in the morning, therefore in the presence of patient's nurse and the secretary book keeper, I called patient's daughter Colletet
and put her on speaker phone; Collette was able to convince patient to get his morning labs drawn. I answered all of Collette's questions and concerns to satisfaction.
Anticipated Discharge: 24 - 48 hours
Subjective/Interval History
-
Date of Service: October 26, 2024
Patient was seen and examined. He denied any chest pain, shortness of breath, abdominal pain or any other complaints.
Objective Data
-
Labs:
Laboratory Results
10/26/24
08:30
WBC 9.9
Hgb 9.6 L
Hct 28.8 L
Plt Count 372
Sodium 133 L
Potassium 3.7
Chloride 103
Carbon Dioxide 25
BUN 4 L
Creatinine 0.6 L
Glucose 140 H
Calcium 8.3 L
Vital Signs:
Vital Signs
Temp Pulse Resp BP Pulse Ox
98.3 F 70 16 141/55 93
10/26/24 07:00 10/26/24 07:00 10/26/24 07:00 10/26/24 07:00 10/26/24 07:00
I&O
10/25/24 10/26/24 10/27/24
06:59 06:59 06:59
Intake Total 3040 / 3040 1260 / 1260
Output Total 750 / 750 250 / 250
Balance 2290 / 2290 1010 / 1010
[2024-10-26 12:30] LABS: Glucose - Point of Care 159 mg/dl (70-99)
[2024-10-26 15:00] VITALS: BP 133/49
[2024-10-26] MEDS: APRESOLINE PO ×2 (15:15→22:20)
[2024-10-26] MEDS: LOVENOX 40 MG SC (16:50)
[2024-10-26 16:53] LABS: Glucose - Point of Care 158 mg/dl (70-99)
[2024-10-26] MEDS: NOVOLOG FLEXPEN-LOW RESISTANCE 1 UNITS SC (16:56)
[2024-10-26] MEDS: COREG 25 MG PO (20:10)
[2024-10-26 21:52] LABS: Glucose - Point of Care 198 mg/dl (70-99)
[2024-10-26] MEDS: LIPITOR PO (22:20)
[2024-10-26 23:28] VITALS: BP 143/60
--- NOTE | 2024-10-27 | PTCARENOTE ---
pt uncooperative - refused wound care. yelling at nursing when attempted to clean and turn.
[2024-10-27] MEDS: APRESOLINE PO ×2 (00:18→22:52)
[2024-10-27] MEDS: LIPITOR PO ×2 (00:18→22:52)
[2024-10-27] MEDS: ZOSYN 50 IV ×2 (04:44→09:47)
[2024-10-27 05:23] VITALS: BMI 31.0
[2024-10-27 07:25] VITALS: BP 159/57
[2024-10-27 07:38] LABS: Glucose - Point of Care 131 mg/dl (70-99)
[2024-10-27] MEDS: NOVOLOG FLEXPEN-LOW RESISTANCE SC (08:22)
[2024-10-27] MEDS: PROTONIX 40 MG PO (09:44)
[2024-10-27] MEDS: PLAVIX 75 MG PO (09:44)
[2024-10-27] MEDS: KCL 20 MEQ PO (09:45)
[2024-10-27] MEDS: COREG 25 MG PO ×2 (09:45→21:06)
[2024-10-27] MEDS: ASPIR LOW (ENTERIC COATED) 81 MG PO (09:45)
[2024-10-27] MEDS: TAMIFLU 75 MG PO (09:45)
[2024-10-27] MEDS: FLOMAX 0.4 MG PO (09:45)
[2024-10-27] MEDS: TYLENOL 650 MG PO (09:45)
[2024-10-27] MEDS: APRESOLINE 10 MG PO ×2 (09:46→17:04)
[2024-10-27] MEDS: LASIX 20 MG IV (09:46)
[2024-10-27] MEDS: DESENEX/MITRAZOL/ZEASORB 1 APPLIC TOPICAL ×2 (09:46→21:17)
[2024-10-27] MEDS: HYDROPHOR 1 APPLIC TOPICAL (09:46)
[2024-10-27] MEDS: ROBITUSSIN 200 MG PO ×2 (09:47→14:33)
[2024-10-27] MEDS: ZINC OXIDE OINTMENT 1 APPLIC TOPICAL ×3 (09:47→22:53)
[2024-10-27 11:53] LABS: Glucose - Point of Care 176 mg/dl (70-99)
[2024-10-27 12:18] LABS: Hematocrit 28.7 % (39.0-52.0); Hemoglobin 9.9 g/dL (13.0-18.0); Mean Corp Hgb Conc. 34.5 g/dL (33.0-37.0); Mean Corpuscular Hgb 28.6 pg (27.0-31.0); Mean Corpuscular Volume 82.9 fL (80.0-94.0); Mean Platelet Volume 8.8 fL (7.4-10.4); Platelet Count 388 10^3/uL (130-400); Red Blood Cell Count 3.46 10^6/uL (4.70-6.10); Red Cell Dist. Width 14.8 % (11.5-14.5); White Blood Cell Count 9.6 10^3/uL (4.8-10.8)
--- NOTE | 2024-10-27 12:28 | W.PN.HOSP.TC ---
Today's Communication/Plan
-
Continue diet with aspiration precautions
Transition to oral Lasix
Monitor volume status and oral intake closely
Follow BMP
Narrow antibiotics to Unasyn covering for intra-abdominal pathogens as well as aspiration
Wound care
Assessment / Plan
Assessment / Plan
Impression:
Toxic metabolic encephalopathy secondary to infection
Influenza A bronchitis
Left-sided colitis
Sepsis present on admission (TME, fever, hypotension, leukocytosis)
Hypotension multifactorial likely in the settings of low volume status. Responded to IV fluids. Now Resolved.
Mild Acute on Chronic HFpEF.
Hyponatremia
Aspiration risk
Probable small left pleural effusion on chest x-ray
Other conditions:
CAD with history of PTCA details unknown.
Severe calcific atherosclerotic plaque in the thoracic aorta and coronary arteries on chest x-ray
PAD status post bilateral lower extremity revascularization in 2023
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
Chronic CHF preserved EF.
Essential hypertension
IDDM
Anemia of chronic disease
BPH
GERD
Obstructive sleep apnea on nightly CPAP previously
Chronic ambulatory dysfunction, multifactorial due to diabetic neuropathy, PAD, cognitive status
Dementia likely vascular type
Plan:
Toxic metabolic encephalopathy likely multifactorial in the settings of infection including influenza A and colitis. Remains febrile -- last fever was 10/25/24 at 4:35 AM (received Tylenol)
Continue supportive care.
Close neurologic monitoring.
Mental status improved significantly and patient has been more interactive.
Influenza A bronchitis.
Not hypoxic.
Imaging with chest x-ray and CT with no evidence of parenchymal infiltrates
Continue Tamiflu through 10/27
Given altered mental status remains aspiration risk.
Speech evaluation.
Diet has been advanced with aspiration precaution
Acute on Chronic HFpEF
CXR 10/25/24 with pulmonary edema, proBNP elevated at 2970 (which is highly specific for CHF even when corrected for his age)
Good response to diuresis
Respiratory status stable with no requirements for supplemental oxygen.
Transition off IV Lasix to standing dose of oral Lasix at 20 mg daily. Monitor oral intake and volume status closely.
Resumed Hydralazine on 10/25/24
Resume Coreg on 10/26/24 as appears patient blood pressure appears elevated and HR is good
Adjust GDMT eventually consider transition to JEANNA/ARB's, consider SGLT2 inhibitor
Left-sided colitis
Infectious versus ischemic (latest most likely given dehydration and underlying vasculopathy)
Patient complains of left-sided pain -- currently appears comfortable, getting Tylenol as needed.
CT scan consistent with sigmoid colitis with differential infectious versus ischemic. Patient is at the high risk for latest (CAD/PAD)
Reported loose stools without hematochezia
Stool negative for C. difficile. Cultures coming back as mostly negative, shiga toxin still pending.
Blood cultures with no growth to date.
Empiric treatment with Zosyn initiated on 10/22.
Narrow antibiotics to Unasyn. Will complete total of 7 to 10 days of antibiotic therapy.
Advance diet -- currently on IDDSI 5 Minced and Moist & Thin Liquids
PAD
Extensive bilateral revascularization procedures in 2023
Chronic trophic wounds.
Continue wound care.
Continue statin.
Continue DAPT
Patient scheduled for vascular procedure on November 03. Will discuss with vascular surgery while patient in the hospital
CAD with prior history of revascularization.
Remains on DAPT and statin.
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
Hypertension
Resumed Hydralazine on 10/25/24 given high blood pressure
Also resuming Coreg on 10/26/24 as above
Getting IV Lasix
Type 2 diabetes/IDDM 2
Updated hemoglobin A1c 9.5.
Patient previously on standing dose of Lantus/NovoLog, not currently.
Continue basal bolus protocol.
Currently glucose range 140 to 180 which is acceptable range while hospitalized
Adjust insulin regimen as diet has been advanced
GERD continue PPI
BPH baseline monitor for retention.
Continue Flomax
Anticipated Discharge: 24 - 48 hours
Subjective/Interval History
-
Date of Service: October 27, 2024
Objective Data
-
Labs:
Laboratory Results
10/27/24
11:46
WBC 9.6
Hgb 9.9 L
Hct 28.7 L
Plt Count 388
Sodium Pending
Potassium Pending
Chloride Pending
Carbon Dioxide Pending
BUN Pending
Creatinine Pending
Glucose Pending
Calcium Pending
Vital Signs:
Vital Signs
Temp Pulse Resp BP Pulse Ox
99.5 F 65 18 159/57 92
10/27/24 07:25 10/27/24 09:46 10/27/24 07:25 10/27/24 09:46 10/27/24 08:00
I&O
10/26/24 10/27/24 10/28/24
06:59 06:59 06:59
Intake Total 1260 / 1260 420 / 420
Output Total 250 / 250
Balance 1010 / 1010 420 / 420
Physical Exam
-
General: Well Developed and No Apparent Distress
HEENT: Normocephalic, Atraumatic and Moist Mucous Membranes
Respiratory: Clear to Auscultation
Cardiac: Regular Rhythm and S1/S2; Negative Murmur, Rub or Gallop
GI: Soft, Nontender, Nondistended and Normal Bowel Sounds; Negative Organomegaly
Rectal: Deferred by Provider
Musculoskeletal: No Clubbing, No Cyanosis and No Edema
Skin: Negative Rash
Neuro: Other (Lethargic, moves all extremities, although overall with limited neurologic exam due to lethargy)
[2024-10-27 12:33] LABS: Blood Urea Nitrogen 5 mg/dl (9-20); Calcium 8.2 mg/dl (8.4-10.2); Carbon Dioxide 26 mmol/L (22-30); Chloride 100 mmol/L (98-107); Estimated Creatinine Clearance 114 ml/min; Glucose 182 mg/dl (70-99); Potassium 3.3 mmol/L (3.5-5.1); Sodium 132 mmol/L (135-145); eGFR > 60.00
--- NOTE | 2024-10-27 13:15 | WOUNDNOTE ---
L CALF (POSTERIOR MEDIAL)
--- NOTE | 2024-10-27 13:15 | WOUNDNOTE ---
L CALF (LATERAL POSTERIOR)
--- NOTE | 2024-10-27 13:15 | WOUNDNOTE ---
R CALF (LATERAL POSTERIOR)
--- NOTE | 2024-10-27 13:30 | WOUNDNOTE ---
[facility] RN note: Patient's LE's look about the same except L lateral lower calf ulcer appears larger/deeper and had squirted a little blood during wound care. Dr. Sutton was in and evaluated LE wounds. No bleeding after the initial small squirt of
sanguinous drainage. Le wound care done with help from JOHN Ruiz and patient's daughter. Patient incontinent of large amount of urine. Patient having loose stools as per nursing. Kavita care given and linens changed with help from JOHN Ruiz and RN
Antony. Cornelius sacral stage 3 ulcer same. MASD to surrounding skin. Local skin/wound care provided. Patient turned to R semi side lying position. [employer]ue lite boots repplied. Dr. Sutton mentioned patient's LLE vascular procedure is going to be
postponed d/t his medical status. Wound healing potential poor d/t PAD. Will follow as needed.
--- NOTE | 2024-10-27 14:19 | CM ---
CM following re: discharge planning.
Reviewed pt's chart, met with pt and pt's son at bedside.
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
[facility] nursing report: [phone]
Discharge instructions fax: [phone]
D/C plan: return back to :[facility] for a shelter care.
CM will follow to assist pt with discharge to [facility].
[2024-10-27 14:21] LABS: % Basophils 0.2 % (0-2); % Eosinophils 1.6 % (0-6); % Lymphocytes 21.5 % (20.5-51.1); % Monocytes 8.6 % (1.7-9.3); % Neutrophils 66.1 % (42.2-75.2); Absolute Eosinophils 0.2 10^3/uL (0-0.7); Absolute Immature Granulocytes 0.2 10^3/uL (0-0.05); Absolute Lymphocytes 2.1 10^3/uL (1.2-3.4); Absolute Monocytes 0.8 10^3/uL (0.1-0.6); Absolute Neutrophils 6.3 10^3/uL (1.4-6.5); Nucleated Red Blood Cells % 0 % (-)
[2024-10-27] MEDS: NOVOLOG FLEXPEN-LOW RESISTANCE 1 UNITS SC (14:27)
[2024-10-27] MEDS: UNASYN IV ×2 (14:27→21:10)
[2024-10-27 16:07] VITALS: BP 156/61
[2024-10-27 16:42] LABS: Glucose - Point of Care 248 mg/dl (70-99)
[2024-10-27] MEDS: LOVENOX 40 MG SC (17:02)
[2024-10-27] MEDS: NOVOLOG FLEXPEN-LOW RESISTANCE 2 UNITS SC (17:05)
[2024-10-27 22:54] VITALS: BP 149/65
[2024-10-27 23:05] VITALS: BP 149/65
[2024-10-28] MEDS: UNASYN IV ×4 (03:09→19:38)
[2024-10-28 05:11] VITALS: BMI 30.7
[2024-10-28 07:00] VITALS: BP 162/61
[2024-10-28 07:10] LABS: Glucose - Point of Care 152 mg/dl (70-99)
[2024-10-28] MEDS: ASPIR LOW (ENTERIC COATED) 81 MG PO (07:53)
[2024-10-28] MEDS: NOVOLOG FLEXPEN-LOW RESISTANCE 1 UNITS SC ×2 (07:53→16:53)
[2024-10-28] MEDS: COREG 25 MG PO ×2 (07:54→19:39)
[2024-10-28] MEDS: PROTONIX 40 MG PO (07:54)
[2024-10-28] MEDS: FLOMAX 0.4 MG PO (07:54)
[2024-10-28] MEDS: PLAVIX 75 MG PO (07:54)
[2024-10-28] MEDS: KCL 20 MEQ PO (07:54)
[2024-10-28] MEDS: APRESOLINE 10 MG PO ×3 (07:55→21:27)
[2024-10-28] MEDS: LASIX 20 MG PO (07:55)
[2024-10-28] MEDS: HYDROPHOR 1 APPLIC TOPICAL (07:59)
[2024-10-28] MEDS: DESENEX/MITRAZOL/ZEASORB 1 APPLIC TOPICAL ×2 (07:59→19:46)
[2024-10-28] MEDS: ZINC OXIDE OINTMENT 1 APPLIC TOPICAL ×3 (08:01→21:27)
[2024-10-28 11:56] LABS: Blood Urea Nitrogen 5 mg/dl (9-20); Calcium 8.3 mg/dl (8.4-10.2); Carbon Dioxide 21 mmol/L (22-30); Chloride 101 mmol/L (98-107); Estimated Creatinine Clearance 113 ml/min; Glucose 183 mg/dl (70-99); Sodium 132 mmol/L (135-145); eGFR > 60.00
[2024-10-28 12:16] LABS: Glucose - Point of Care 203 mg/dl (70-99)
[2024-10-28] MEDS: FARXIGA 5 MG PO (12:42)
[2024-10-28] MEDS: NOVOLOG FLEXPEN-LOW RESISTANCE 2 UNITS SC (12:50)
[2024-10-28] MEDS: ROBITUSSIN 200 MG PO (12:58)
--- NOTE | 2024-10-28 14:12 | W.PN.HOSP.TC ---
Today's Communication/Plan
-
Monitor oral intake
Plan is to complete course of antibiotics on 10/29
Add Farxiga. Continue insulin sliding scale following serial glucose reading. May need standing dose of long-acting insulin
Wound care
Discharge planning
Assessment / Plan
Assessment / Plan
Impression:
Toxic metabolic encephalopathy secondary to infection
Influenza A bronchitis
Left-sided colitis
Sepsis present on admission (TME, fever, hypotension, leukocytosis)
Hypotension multifactorial likely in the settings of low volume status. Responded to IV fluids. Now Resolved.
Mild Acute on Chronic HFpEF.
Hyponatremia
Aspiration risk
Probable small left pleural effusion on chest x-ray
Other conditions:
CAD with history of PTCA details unknown.
Severe calcific atherosclerotic plaque in the thoracic aorta and coronary arteries on chest x-ray
PAD status post bilateral lower extremity revascularization in 2023
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
Chronic CHF preserved EF.
Essential hypertension
IDDM
Anemia of chronic disease
BPH
GERD
Obstructive sleep apnea on nightly CPAP previously
Chronic ambulatory dysfunction, multifactorial due to diabetic neuropathy, PAD, cognitive status
Dementia likely vascular type
Plan:
Toxic metabolic encephalopathy likely multifactorial in the settings of infection including influenza A and colitis. Remains febrile -- last fever was 10/25/24 at 4:35 AM (received Tylenol)
Continue supportive care.
Close neurologic monitoring.
Mental status improved significantly and patient has been more interactive.
Influenza A bronchitis.
Not hypoxic.
Imaging with chest x-ray and CT with no evidence of parenchymal infiltrates
Continue Tamiflu through 10/27
Given altered mental status remains aspiration risk.
Speech evaluation.
Diet has been advanced with aspiration precaution
Acute on Chronic HFpEF
CXR 10/25/24 with pulmonary edema, proBNP elevated at 2970 (which is highly specific for CHF even when corrected for his age)
Good response to diuresis
Respiratory status stable with no requirements for supplemental oxygen.
Transition off IV Lasix to standing dose of oral Lasix at 20 mg daily. Monitor oral intake and volume status closely.
Resumed Hydralazine on 10/25/24
Resume Coreg on 10/26/24 as appears patient blood pressure appears elevated and HR is good
Adjust GDMT eventually consider transition to JEANNA/ARB's, consider SGLT2 inhibitor
Left-sided colitis
Infectious versus ischemic (latest most likely given dehydration and underlying vasculopathy)
Patient complains of left-sided pain -- currently appears comfortable, getting Tylenol as needed.
CT scan consistent with sigmoid colitis with differential infectious versus ischemic. Patient is at the high risk for latest (CAD/PAD)
Reported loose stools without hematochezia
Stool negative for C. difficile. Cultures coming back as mostly negative, shiga toxin still pending.
Blood cultures with no growth to date.
Empiric treatment with Zosyn initiated on 10/22.
Narrow antibiotics to Unasyn. Will complete total of 7 to 10 days of antibiotic therapy.
Advance diet -- currently on IDDSI 5 Minced and Moist & Thin Liquids
PAD
Extensive bilateral revascularization procedures in 2023
Chronic trophic wounds.
Continue wound care.
Continue statin.
Continue DAPT
Patient scheduled for vascular procedure on November 03. Will discuss with vascular surgery while patient in the hospital
CAD with prior history of revascularization.
Remains on DAPT and statin.
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
Hypertension
Resumed Hydralazine on 10/25/24 given high blood pressure
Also resuming Coreg on 10/26/24 as above
Getting IV Lasix
Type 2 diabetes/IDDM 2
Updated hemoglobin A1c 9.5.
Patient previously on standing dose of Lantus/NovoLog, not currently.
Continue basal bolus protocol.
Currently glucose range 140 to 180 which is acceptable range while hospitalized
Adjust insulin regimen as diet has been advanced
Start Farxiga
GERD continue PPI
BPH baseline monitor for retention.
Continue Flomax
Anticipated Discharge: 24 - 48 hours
Subjective/Interval History
-
Date of Service: October 28, 2024
Objective Data
-
Labs:
Laboratory Results
10/28/24 10/28/24
11:25 14:05
WBC Cancelled Pending
Hgb Cancelled Pending
Hct Cancelled Pending
Plt Count Cancelled Pending
Sodium 132 L
Potassium 4.0
Chloride 101
Carbon Dioxide 21 L
BUN 5 L
Creatinine 0.6 L
Glucose 183 H
Calcium 8.3 L
Vital Signs:
Vital Signs
Temp Pulse Resp BP Pulse Ox
98.7 F 73 20 162/61 94
10/28/24 07:00 10/28/24 07:55 10/28/24 07:00 10/28/24 07:55 10/28/24 07:00
I&O
10/27/24 10/28/24 10/29/24
06:59 06:59 06:59
Intake Total 420 / 420 1010 / 1010
Output Total 150 / 150
Balance 420 / 420 860 / 860
Physical Exam
-
General: Well Developed and No Apparent Distress
HEENT: Normocephalic, Atraumatic and Moist Mucous Membranes
Respiratory: Clear to Auscultation
Cardiac: Regular Rhythm and S1/S2; Negative Murmur, Rub or Gallop
GI: Soft, Nontender, Nondistended and Normal Bowel Sounds; Negative Organomegaly
Rectal: Deferred by Provider
Musculoskeletal: No Clubbing, No Cyanosis and No Edema
Skin: Negative Rash
Neuro: Other (Lethargic, moves all extremities, although overall with limited neurologic exam due to lethargy)
[2024-10-28 14:19] LABS: Hematocrit 30.5 % (39.0-52.0); Hemoglobin 10.5 g/dL (13.0-18.0); Mean Corp Hgb Conc. 34.4 g/dL (33.0-37.0); Mean Corpuscular Hgb 28.5 pg (27.0-31.0); Mean Corpuscular Volume 82.7 fL (80.0-94.0); Mean Platelet Volume 8.8 fL (7.4-10.4); Platelet Count 452 10^3/uL (130-400); Red Blood Cell Count 3.69 10^6/uL (4.70-6.10); Red Cell Dist. Width 14.7 % (11.5-14.5); White Blood Cell Count 17.6 10^3/uL (4.8-10.8)
[2024-10-28 15:00] VITALS: BP 143/52
[2024-10-28 15:10] LABS: % Basophils 0.2 % (0-2); % Eosinophils 0.6 % (0-6); % Immature Granulocytes 1.4 % (0-0.5); % Lymphocytes 13.2 % (20.5-51.1); % Monocytes 7.1 % (1.7-9.3); % Neutrophils 77.5 % (42.2-75.2); Absolute Eosinophils 0.1 10^3/uL (0-0.7); Absolute Immature Granulocytes 0.2 10^3/uL (0-0.05); Absolute Lymphocytes 2.3 10^3/uL (1.2-3.4); Absolute Monocytes 1.3 10^3/uL (0.1-0.6); Absolute Neutrophils 13.7 10^3/uL (1.4-6.5); Nucleated Red Blood Cells % 0 % (-)
[2024-10-28] MEDS: LOVENOX 40 MG SC (16:52)
[2024-10-28 16:57] LABS: Glucose - Point of Care 182 mg/dl (70-99)
[2024-10-28 17:30] LABS: Urine Albumin Negative (Neg - Trace); Urine Bilirubin Negative (Negative); Urine Color Yellow; Urine Glucose 4+ (Negative); Urine Ketone Negative (Negative); Urine Leukocyte Negative (Negative); Urine Nitrite Negative (Negative); Urine Occult Blood Negative (Negative); Urine Urobilinogen Negative (Neg - 1+); Urine pH 6.5 (5.0-9.0)
[2024-10-28 17:42] LABS: Urine Character Clear (Clear)
[2024-10-28] MEDS: LASIX 20 MG IV (17:54)
[2024-10-28 18:15] LABS: NT-proBNP 1640 pg/ml
[2024-10-28 21:14] LABS: Glucose - Point of Care 145 mg/dl (70-99)
[2024-10-28] MEDS: LIPITOR 10 MG PO (21:27)
[2024-10-28 23:25] VITALS: BP 138/58
[2024-10-29] MEDS: UNASYN IV ×4 (01:00→19:29)
[2024-10-29 05:24] VITALS: BMI 29.9
[2024-10-29] MEDS: APRESOLINE 10 MG PO ×3 (07:39→21:19)
[2024-10-29] MEDS: FARXIGA 5 MG PO (07:39)
[2024-10-29 07:40] VITALS: BP 164/60
[2024-10-29] MEDS: ASPIR LOW (ENTERIC COATED) 81 MG PO (07:40)
[2024-10-29] MEDS: KCL 20 MEQ PO (07:40)
[2024-10-29] MEDS: PLAVIX 75 MG PO (07:40)
[2024-10-29] MEDS: LASIX 20 MG PO (07:40)
[2024-10-29] MEDS: FLOMAX 0.4 MG PO (07:40)
[2024-10-29] MEDS: COREG 25 MG PO ×2 (07:40→19:29)
[2024-10-29] MEDS: PROTONIX 40 MG PO (07:40)
[2024-10-29] MEDS: DESENEX/MITRAZOL/ZEASORB 1 APPLIC TOPICAL ×2 (07:41→19:30)
[2024-10-29] MEDS: ZINC OXIDE OINTMENT 1 APPLIC TOPICAL ×3 (07:41→21:19)
[2024-10-29] MEDS: HYDROPHOR 1 APPLIC TOPICAL (07:41)
[2024-10-29 09:44] LABS: Glucose - Point of Care 159 mg/dl (70-99)
[2024-10-29] MEDS: NOVOLOG FLEXPEN-LOW RESISTANCE 1 UNITS SC ×2 (09:44→18:12)
[2024-10-29 09:50] LABS: % Basophils 0.3 % (0-2); % Eosinophils 0.7 % (0-6); % Immature Granulocytes 1.7 % (0-0.5); % Lymphocytes 22.1 % (20.5-51.1); % Monocytes 8.4 % (1.7-9.3); % Neutrophils 66.8 % (42.2-75.2); Absolute Eosinophils 0.1 10^3/uL (0-0.7); Absolute Immature Granulocytes 0.2 10^3/uL (0-0.05); Absolute Lymphocytes 2.6 10^3/uL (1.2-3.4); Absolute Neutrophils 7.8 10^3/uL (1.4-6.5); Hematocrit 31.4 % (39.0-52.0); Hemoglobin 10.7 g/dL (13.0-18.0); Mean Corp Hgb Conc. 34.1 g/dL (33.0-37.0); Mean Corpuscular Hgb 28.2 pg (27.0-31.0); Mean Corpuscular Volume 82.6 fL (80.0-94.0); Mean Platelet Volume 8.4 fL (7.4-10.4); Nucleated Red Blood Cells % 0 % (-); Platelet Count 393 10^3/uL (130-400); Red Cell Dist. Width 14.7 % (11.5-14.5); White Blood Cell Count 11.6 10^3/uL (4.8-10.8)
--- NOTE | 2024-10-29 09:58 | PTCARENOTE ---
Pt refusing AM labs and accucheck, daughter called, daughter came in at bedside to encourage pt, labs drawn and accucheck taken, see MAR for insulin administration records. No new orders at this time.
[2024-10-29 10:37] LABS: ALT (SGPT) 14 U/L (0-50); AST (SGOT) 19 U/L (17-59); Albumin 2.9 g/dl (3.5-5.0); Alkaline Phosphatase 96 U/L (38-126); Blood Urea Nitrogen 6 mg/dl (9-20); Calcium 8.4 mg/dl (8.4-10.2); Carbon Dioxide 28 mmol/L (22-30); Chloride 98 mmol/L (98-107); Estimated Creatinine Clearance 112 ml/min; Glucose 145 mg/dl (70-99); Potassium 3.6 mmol/L (3.5-5.1); Sodium 135 mmol/L (135-145); Total Bilirubin 0.5 mg/dl (0.2-1.3); Total Protein 5.8 g/dl (6.3-8.2); eGFR > 60.00
[2024-10-29 11:19] LABS: Glucose - Point of Care 189 mg/dl (70-99)
[2024-10-29] MEDS: NOVOLOG FLEXPEN-LOW RESISTANCE SC (13:03)
--- NOTE | 2024-10-29 14:17 | CM ---
CM following re: discharge planning.
Reviewed pt's chart, met with pt.
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
[facility] nursing report: [phone]
Discharge instructions fax: [phone]
D/C plan: return back to [facility] for a extermination supervisor care.
CM will follow to assist pt with discharge to [facility].
--- NOTE | 2024-10-29 14:38 | W.PN.HOSP.TC ---
Today's Communication/Plan
-
Last day of antibiotics.
Monitor oral intake.
Aspiration precautions.
Wound care
Assessment / Plan
Assessment / Plan
Impression:
Toxic metabolic encephalopathy secondary to infection
Influenza A bronchitis
Left-sided colitis
Sepsis present on admission (TME, fever, hypotension, leukocytosis)
Hypotension multifactorial likely in the settings of low volume status. Responded to IV fluids. Now Resolved.
Mild Acute on Chronic HFpEF.
Hyponatremia
Aspiration risk
Probable small left pleural effusion on chest x-ray
Other conditions:
CAD with history of PTCA details unknown.
Severe calcific atherosclerotic plaque in the thoracic aorta and coronary arteries on chest x-ray
PAD status post bilateral lower extremity revascularization in 2023
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
Chronic CHF preserved EF.
Essential hypertension
IDDM
Anemia of chronic disease
BPH
GERD
Obstructive sleep apnea on nightly CPAP previously
Chronic ambulatory dysfunction, multifactorial due to diabetic neuropathy, PAD, cognitive status
Dementia likely vascular type
Plan:
Toxic metabolic encephalopathy likely multifactorial in the settings of infection including influenza A and colitis. Remains febrile -- last fever was 10/25/24 at 4:35 AM (received Tylenol)
Continue supportive care.
Close neurologic monitoring.
Mental status improved significantly and patient has been more interactive.
Influenza A bronchitis.
Not hypoxic.
Imaging with chest x-ray and CT with no evidence of parenchymal infiltrates
Continue Tamiflu through 10/27
Given altered mental status remains aspiration risk.
Speech evaluation.
Diet has been advanced with aspiration precaution
Acute on Chronic HFpEF
CXR 10/25/24 with pulmonary edema, proBNP elevated at 2970 (which is highly specific for CHF even when corrected for his age)
Good response to diuresis
Respiratory status stable with no requirements for supplemental oxygen.
Transition off IV Lasix to standing dose of oral Lasix at 20 mg daily. Monitor oral intake and volume status closely.
Resumed Hydralazine on 10/25/24
Resume Coreg on 10/26/24 as appears patient blood pressure appears elevated and HR is good
Initiated on Farxiga
Left-sided colitis
Infectious versus ischemic (latest most likely given dehydration and underlying vasculopathy)
Patient complains of left-sided pain -- currently appears comfortable, getting Tylenol as needed.
CT scan consistent with sigmoid colitis with differential infectious versus ischemic. Patient is at the high risk for latest (CAD/PAD)
Reported loose stools without hematochezia
Stool negative for C. difficile. Cultures coming back as mostly negative, shiga toxin still pending.
Blood cultures with no growth to date.
Empiric treatment with Zosyn initiated on 10/22.
Narrow antibiotics to Unasyn. Will complete total of 7 to 10 days of antibiotic therapy.
Advance diet -- currently on IDDSI 5 Minced and Moist & Thin Liquids
PAD
Extensive bilateral revascularization procedures in 2023
Chronic trophic wounds.
Continue wound care.
Continue statin.
Continue DAPT
Patient scheduled for vascular procedure on November 03. Will discuss with vascular surgery while patient in the hospital
CAD with prior history of revascularization.
Remains on DAPT and statin.
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
Hypertension
Resumed Hydralazine on 10/25/24 given high blood pressure
Also resuming Coreg on 10/26/24 as above
Getting IV Lasix
Type 2 diabetes/IDDM 2
Updated hemoglobin A1c 9.5.
Patient previously on standing dose of Lantus/NovoLog, not currently.
Continue basal bolus protocol.
Currently glucose range 140 to 180 which is acceptable range while hospitalized
Adjust insulin regimen as diet has been advanced
Start Farxiga
GERD continue PPI
BPH baseline monitor for retention.
Continue Flomax
Anticipated Discharge: 24 - 48 hours
Subjective/Interval History
-
Date of Service: October 29, 2024
Objective Data
-
Labs:
Laboratory Results
10/29/24
09:41
WBC 11.6 H
Hgb 10.7 L
Hct 31.4 L
Plt Count 393
Sodium 135
Potassium 3.6
Chloride 98
Carbon Dioxide 28
BUN 6 L
Creatinine 0.6 L
Glucose 145 H
Calcium 8.4
Total Bilirubin 0.5
AST 19
ALT 14
Alkaline Phosphatase 96
Vital Signs:
Vital Signs
Temp Pulse Resp BP Pulse Ox
98.7 F 68 18 164/60 95
10/29/24 07:40 10/29/24 07:40 10/29/24 07:40 10/29/24 07:40 10/29/24 09:40
I&O
10/28/24 10/29/24 10/30/24
06:59 06:59 06:59
Intake Total 1010 / 1010 560 / 560
Output Total 150 / 150
Balance 860 / 860 560 / 560
Physical Exam
-
General: Well Developed and No Apparent Distress
HEENT: Normocephalic, Atraumatic and Moist Mucous Membranes
Respiratory: Clear to Auscultation
Cardiac: Regular Rhythm and S1/S2; Negative Murmur, Rub or Gallop
GI: Soft, Nontender, Nondistended and Normal Bowel Sounds; Negative Organomegaly
Rectal: Deferred by Provider
Musculoskeletal: No Clubbing, No Cyanosis and No Edema
Skin: Negative Rash
Neuro: Other (Lethargic, moves all extremities, although overall with limited neurologic exam due to lethargy)
[2024-10-29 15:38] VITALS: BP 143/57
[2024-10-29 18:00] LABS: Glucose - Point of Care 172 mg/dl (70-99)
[2024-10-29] MEDS: LOVENOX 40 MG SC (18:11)
[2024-10-29 21:12] LABS: Glucose - Point of Care 220 mg/dl (70-99)
[2024-10-29] MEDS: LIPITOR 10 MG PO (21:19)
[2024-10-30] MEDS: UNASYN IV ×3 (01:19→12:56)
[2024-10-30 06:00] VITALS: BMI 29.8
[2024-10-30] MEDS: FARXIGA 5 MG PO (07:47)
[2024-10-30] MEDS: PROTONIX 40 MG PO (07:47)
[2024-10-30] MEDS: APRESOLINE 10 MG PO ×3 (07:48→23:49)
[2024-10-30] MEDS: COREG 25 MG PO (07:48)
[2024-10-30] MEDS: LASIX 20 MG PO (07:48)
[2024-10-30] MEDS: FLOMAX 0.4 MG PO (07:48)
[2024-10-30] MEDS: ASPIR LOW (ENTERIC COATED) 81 MG PO (07:48)
[2024-10-30] MEDS: PLAVIX 75 MG PO (07:48)
[2024-10-30 07:49] VITALS: BP 132/45
[2024-10-30] MEDS: HYDROPHOR 1 APPLIC TOPICAL (07:50)
[2024-10-30] MEDS: ZINC OXIDE OINTMENT 1 APPLIC TOPICAL ×3 (07:50→21:50)
[2024-10-30] MEDS: DESENEX/MITRAZOL/ZEASORB 1 APPLIC TOPICAL ×2 (07:50→20:02)
[2024-10-30] MEDS: KCL 20 MEQ PO (07:50)
--- NOTE | 2024-10-30 09:22 | PTCARENOTE ---
Pt refusing accucheck again this AM, AM insulin not administered.
[2024-10-30] MEDS: NOVOLOG FLEXPEN-LOW RESISTANCE SC ×3 (09:24→17:15)
--- NOTE | 2024-10-30 10:54 | PTCARENOTE ---
Pt's o2 this AM was 87% on RA, made aware, repeat bedside CXR, no new orders at this time.
[2024-10-30 11:09] LABS: % Basophils 0.2 % (0-2); % Eosinophils 0.8 % (0-6); % Immature Granulocytes 1.4 % (0-0.5); % Monocytes 9.3 % (1.7-9.3); % Neutrophils 69.3 % (42.2-75.2); Absolute Eosinophils 0.1 10^3/uL (0-0.7); Absolute Immature Granulocytes 0.2 10^3/uL (0-0.05); Absolute Lymphocytes 2.3 10^3/uL (1.2-3.4); Absolute Monocytes 1.1 10^3/uL (0.1-0.6); Absolute Neutrophils 8.2 10^3/uL (1.4-6.5); Hemoglobin 9.6 g/dL (13.0-18.0); Mean Corp Hgb Conc. 34.3 g/dL (33.0-37.0); Mean Corpuscular Hgb 28.7 pg (27.0-31.0); Mean Corpuscular Volume 83.6 fL (80.0-94.0); Mean Platelet Volume 8.8 fL (7.4-10.4); Nucleated Red Blood Cells % 0 % (-); Platelet Count 391 10^3/uL (130-400); Red Blood Cell Count 3.35 10^6/uL (4.70-6.10); Red Cell Dist. Width 14.8 % (11.5-14.5); White Blood Cell Count 11.9 10^3/uL (4.8-10.8)
[2024-10-30 11:41] LABS: Blood Urea Nitrogen 6 mg/dl (9-20); Calcium 7.9 mg/dl (8.4-10.2); Carbon Dioxide 27 mmol/L (22-30); Chloride 98 mmol/L (98-107); Estimated Creatinine Clearance 86 ml/min; Glucose 202 mg/dl (70-99); Potassium 3.2 mmol/L (3.5-5.1); Sodium 133 mmol/L (135-145); eGFR > 60.00
[2024-10-30 11:44] LABS: NT-proBNP 712 pg/ml
[2024-10-30 12:25] VITALS: BP 143/105
[2024-10-30] MEDS: ROBITUSSIN 200 MG PO (12:51)
--- NOTE | 2024-10-30 13:14 | PHA.VAN.IN ---
Assessment
- Assessment
Renal Function: Appears similar to baseline
- Previous Dosing Experience
Previous Regimen: Vanc 1000mg Q12H
Date of Regimen: April 2024
Provided Trough of: 21.4
Provided AUC of: 609
Patient's SCR is: Similar to previous dosing experience
Patient's weight is: Similar to previous dosing experience
Vanc 1000mg Q12H provided AUC 466, Cmin 15.2, half-life 16.2. Regimen was continued and accumulation was noted with PK above. Half-life increased to 20.1H.
Regimen was adjusted to Vanc 1500mg Q24H (initially started with dosing by level), which consistently provided levels of 11-13
AUC Dosing Plan
- Empiric Dosing
Maintenance Regimen: Vanc 1500mg Q24H - first dose now then 10/31 0600 in lieu of load
Dosing based on prior experience
- Monitoring
No levels ordered at this time: consider levels in next few days
Pharmacokinetics Vancomycin I
- -
Patient Age: 79
Patient Sex: Male
Vancomycin Day #: 1
Indication: Pulmonary/Respiratory
Requesting Provider: Dr. Sutton
Pertinent Antimicrobial Allergies:
no pertinent antibiotic allergies
Height / Weight:
Height 5 ft 8 in
Actual Weight 88.904 kg
Pertinent Past Medical History: influenza A, PAD, DM II
- Vital Signs / Lab Results
Temp Pulse Resp BP Pulse Ox
99.8 F 76 20 143/105 83
10/30/24 12:25 10/30/24 12:25 10/30/24 12:25 10/30/24 12:25 10/30/24 12:25
Lab Results - Hematology
10/28/24 10/28/24 10/29/24
11:25 14:05 09:41
WBC Cancelled 17.6 H 11.6 H
10/30/24
10:56
WBC 11.9 H
Lab Results - Chemistry
10/28/24 10/29/24 10/30/24
11 09:41 10:56
BUN 5 L 6 L 6 L
Creatinine 0.6 L 0.6 L 0.7
Estimated Creat Clear 113 112 86
Albumin 2.9 L
Lab Results - Urine
10/28/24
17:19
Urine Nitrite (Reflex) Negative
Leukocyte Esterase Rfl Negative
Microbiology Results
10/29/24 18:17 C. difficile GDH Antigen & Toxins - Final
Feces/Stool Negative for toxigenic C.difficile
[2024-10-30] MEDS: ZOSYN 50 IV ×2 (13:41→20:02)
[2024-10-30] MEDS: VANCOCIN 530 MG IV (14:27)
--- NOTE | 2024-10-30 14:39 | W.PN.HOSP.TC ---
Today's Communication/Plan
-
Acute hypoxic respiratory insufficiency developed on 10/30.
Pneumonia, possibly community-acquired post flu, also with reasonable aspiration risk and aspiration pneumonia.
Known MRSA positive
Broaden number diuretics to Zosyn with addition of vancomycin
Aspiration precautions
Follow temperature curve
Follow CBC
Assessment / Plan
Assessment / Plan
Impression:
Toxic metabolic encephalopathy secondary to infection
Influenza A bronchitis
Acute hypoxic respiratory insufficiency developed on 10/30.
Pneumonia, possibly community-acquired post flu, also with reasonable aspiration risk and aspiration pneumonia.
Left-sided colitis
Sepsis present on admission (TME, fever, hypotension, leukocytosis)
Hypotension multifactorial likely in the settings of low volume status. Responded to IV fluids. Now Resolved.
Mild Acute on Chronic HFpEF.
Hyponatremia
Aspiration risk
Probable small left pleural effusion on chest x-ray
Other conditions:
CAD with history of PTCA details unknown.
Severe calcific atherosclerotic plaque in the thoracic aorta and coronary arteries on chest x-ray
PAD status post bilateral lower extremity revascularization in 2023
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
Chronic CHF preserved EF.
Essential hypertension
IDDM
Anemia of chronic disease
BPH
GERD
Obstructive sleep apnea on nightly CPAP previously
Chronic ambulatory dysfunction, multifactorial due to diabetic neuropathy, PAD, cognitive status
Dementia likely vascular type
Plan:
Toxic metabolic encephalopathy likely multifactorial in the settings of infection including influenza A and colitis. Remains febrile -- last fever was 10/25/24 at 4:35 AM (received Tylenol)
Continue supportive care.
Close neurologic monitoring.
Mental status improved significantly and patient has been more interactive.
Influenza A bronchitis.
Not hypoxic on presentation
Imaging with chest x-ray and CT with no evidence of parenchymal infiltrates
Continue Tamiflu through 10/27
Given altered mental status remains aspiration risk.
Speech evaluation.
Diet has been advanced with aspiration precaution
Acute hypoxic respiratory insufficiency developed on 10/30.
Pneumonia, possibly community-acquired post flu, also with reasonable aspiration risk and aspiration pneumonia.
Known MRSA positive
Broaden number diuretics to Zosyn with addition of vancomycin
Aspiration precautions
Follow temperature curve
Follow CBC
Acute on Chronic HFpEF
CXR 10/25/24 with pulmonary edema, proBNP elevated at 2970 (which is highly specific for CHF even when corrected for his age)
Good response to diuresis
Respiratory status stable with no requirements for supplemental oxygen.
Transition off IV Lasix to standing dose of oral Lasix at 20 mg daily. Monitor oral intake and volume status closely.
Resumed Hydralazine on 10/25/24
Resume Coreg on 10/26/24 as appears patient blood pressure appears elevated and HR is good
Initiated on Farxiga
Left-sided colitis
Infectious versus ischemic (latest most likely given dehydration and underlying vasculopathy)
Patient complains of left-sided pain -- currently appears comfortable, getting Tylenol as needed.
CT scan consistent with sigmoid colitis with differential infectious versus ischemic. Patient is at the high risk for latest (CAD/PAD)
Reported loose stools without hematochezia
Stool negative for C. difficile. Cultures coming back as mostly negative, shiga toxin still pending.
Blood cultures with no growth to date.
Empiric treatment with Zosyn initiated on 10/22.
Narrow antibiotics to Unasyn. Will complete total of 7 to 10 days of antibiotic therapy.
Advance diet -- currently on IDDSI 5 Minced and Moist & Thin Liquids
PAD
Extensive bilateral revascularization procedures in 2023
Chronic trophic wounds.
Continue wound care.
Continue statin.
Continue DAPT
Patient scheduled for vascular procedure on November 03. Will discuss with vascular surgery while patient in the hospital
CAD with prior history of revascularization.
Remains on DAPT and statin.
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
Hypertension
Resumed Hydralazine on 10/25/24 given high blood pressure
Also resuming Coreg on 10/26/24 as above
Getting IV Lasix
Type 2 diabetes/IDDM 2
Updated hemoglobin A1c 9.5.
Patient previously on standing dose of Lantus/NovoLog, not currently.
Continue basal bolus protocol.
Adjust insulin regimen as diet has been advanced
Start Farxiga
GERD continue PPI
BPH baseline monitor for retention.
Continue Flomax
Anticipated Discharge: 24 - 48 hours
Subjective/Interval History
-
Date of Service: October 30, 2024
Objective Data
-
Labs:
Laboratory Results
10/30/24
10:56
WBC 11.9 H
Hgb 9.6 L
Hct 28.0 L
Plt Count 391
Sodium 133 L
Potassium 3.2 L
Chloride 98
Carbon Dioxide 27
BUN 6 L
Creatinine 0.7
Glucose 202 H
Calcium 7.9 L
Vital Signs:
Vital Signs
Temp Pulse Resp BP Pulse Ox
99.8 F 76 20 143/105 83
10/30/24 12:25 10/30/24 12:25 10/30/24 12:25 10/30/24 12:25 10/30/24 12:25
I&O
10/29/24 10/30/24 10/31/24
06:59 06:59 06:59
Intake Total 560 / 560 810 / 810
Balance 560 / 560 810 / 810
Physical Exam
-
General: Well Developed and No Apparent Distress
HEENT: Normocephalic, Atraumatic and Moist Mucous Membranes
Respiratory: Clear to Auscultation
Cardiac: Regular Rhythm and S1/S2; Negative Murmur, Rub or Gallop
GI: Soft, Nontender, Nondistended and Normal Bowel Sounds; Negative Organomegaly
Rectal: Deferred by Provider
Musculoskeletal: No Clubbing, No Cyanosis and No Edema
Skin: Negative Rash
Neuro: Other (Lethargic, moves all extremities, although overall with limited neurologic exam due to lethargy)
--- NOTE | 2024-10-30 15:13 | CM ---
CM following re: discharge planning.
Reviewed pt's chart, met with pt.
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
[facility] nursing report: [phone]
Discharge instructions fax: [phone]
D/C plan: return back to [facility] for a intermediate manager care.
CM will follow to assist pt with discharge to [facility].
[2024-10-30 15:27] VITALS: BP 120/72
[2024-10-30 17:03] LABS: Glucose - Point of Care 141 mg/dl (70-99)
[2024-10-30] MEDS: LOVENOX 40 MG SC (17:13)
[2024-10-30] MEDS: TYLENOL 650 MG PO (17:14)
[2024-10-30 20:10] VITALS: BP 110/40
[2024-10-30] MEDS: COREG PO (20:12)
[2024-10-30 21:12] LABS: Glucose - Point of Care 164 mg/dl (70-99)
[2024-10-30 21:15] VITALS: BP 126/46
[2024-10-30] MEDS: LIPITOR 10 MG PO (21:34)
--- NOTE | 2024-10-30 21:56 | PTCARENOTE ---
Addendum entered by Sabrina De Santiago RN 10/30/24 23:49:
Pt BP 138/51 HR 61. Hydralazine administered
Original Note:
Per [facility], hold 2200 Hydralazine and recheck in 2 hours.
BP 126/46 HR 64
[2024-10-30 23:44] VITALS: BP 138/51
[2024-10-31] MEDS: ZOSYN 50 IV ×4 (01:35→19:46)
[2024-10-31] MEDS: VANCOCIN 530 MG IV (05:11)
[2024-10-31 05:31] VITALS: BMI 29.8
[2024-10-31 08:05] VITALS: BP 166/54
[2024-10-31 08:06] LABS: Glucose - Point of Care 112 mg/dl (70-99)
[2024-10-31] MEDS: NOVOLOG FLEXPEN-LOW RESISTANCE SC (08:27)
[2024-10-31] MEDS: FARXIGA 5 MG PO (08:28)
[2024-10-31] MEDS: PLAVIX 75 MG PO (08:28)
[2024-10-31] MEDS: ASPIR LOW (ENTERIC COATED) 81 MG PO (08:28)
[2024-10-31] MEDS: KCL 20 MEQ PO (08:28)
[2024-10-31] MEDS: PROTONIX 40 MG PO (08:28)
[2024-10-31] MEDS: FLOMAX 0.4 MG PO (08:28)
[2024-10-31] MEDS: COREG 25 MG PO ×2 (08:29→19:47)
[2024-10-31] MEDS: LASIX 20 MG PO (08:29)
[2024-10-31] MEDS: APRESOLINE 10 MG PO ×3 (08:29→21:26)
[2024-10-31] MEDS: DESENEX/MITRAZOL/ZEASORB 1 APPLIC TOPICAL ×2 (08:33→19:47)
[2024-10-31] MEDS: ZINC OXIDE OINTMENT 1 APPLIC TOPICAL ×3 (08:34→21:29)
[2024-10-31] MEDS: HYDROPHOR 1 APPLIC TOPICAL (08:34)
[2024-10-31] MEDS: ROBITUSSIN 200 MG PO ×3 (09:08→21:27)
[2024-10-31] MEDS: TYLENOL 650 MG PO ×3 (11:34→21:27)
[2024-10-31 12:01] LABS: Glucose - Point of Care 221 mg/dl (70-99)
[2024-10-31] MEDS: NOVOLOG FLEXPEN-LOW RESISTANCE 2 UNITS SC (12:08)
[2024-10-31 12:30] VITALS: BP 138/58
--- NOTE | 2024-10-31 12:30 | WOUNDNOTE ---
R CALF (LATERAL POSTERIOR)
--- NOTE | 2024-10-31 12:30 | WOUNDNOTE ---
L CALF (MEDIAL POSTERIOR)
--- NOTE | 2024-10-31 12:30 | WOUNDNOTE ---
SACRAL/BRUCE ANAL SKIN
--- NOTE | 2024-10-31 12:30 | WOUNDNOTE ---
L CALF (POSTERIOR LATERAL)
--- NOTE | 2024-10-31 12:30 | WOUNDNOTE ---
WOC RN note: Patient's Le wounds mostly clean/pink. R lateral calf ulcer with slightly less yellow fibrin slough. Drainage less than on Sunday. Skin on heels blanchable red and intact. Stage 3 sacral ulcer mostly pink with scant yellow fibrin. LE
and sacral dressing changed. Perianal area with less MASD. Couple small dermal ulcers noted distal anal area suspect r/t bowel incontinence. Patient incontinent of urine. Kavita care given. Patient turned to R semi side lying position with help from
JOHN Artis. TruVue lite heel relief boots reapplied. Patient is on a [employer] air bed with static air overlay. JOHN Artis plans to consult strategic communications manager if not already following. Will follow as needed.
[2024-10-31 12:43] LABS: % Basophils 0.3 % (0-2); % Eosinophils 0.9 % (0-6); % Immature Granulocytes 0.6 % (0-0.5); % Lymphocytes 12.2 % (20.5-51.1); % Monocytes 9.1 % (1.7-9.3); % Neutrophils 76.9 % (42.2-75.2); Absolute Eosinophils 0.1 10^3/uL (0-0.7); Absolute Immature Granulocytes 0.1 10^3/uL (0-0.05); Absolute Lymphocytes 1.3 10^3/uL (1.2-3.4); Absolute Neutrophils 8.4 10^3/uL (1.4-6.5); Hematocrit 27.3 % (39.0-52.0); Hemoglobin 9.3 g/dL (13.0-18.0); Mean Corp Hgb Conc. 34.1 g/dL (33.0-37.0); Mean Corpuscular Hgb 28.1 pg (27.0-31.0); Mean Corpuscular Volume 82.5 fL (80.0-94.0); Mean Platelet Volume 8.7 fL (7.4-10.4); Nucleated Red Blood Cells % 0 % (-); Platelet Count 370 10^3/uL (130-400); Red Blood Cell Count 3.31 10^6/uL (4.70-6.10); Red Cell Dist. Width 14.8 % (11.5-14.5); White Blood Cell Count 10.9 10^3/uL (4.8-10.8)
--- NOTE | 2024-10-31 12:58 | W.PN.HOSP.TC ---
Addendum entered and electronically signed by Prasanth Sutton MD 10/31/24 13:31:
Repeated MRSA screen negative.
Discontinue vancomycin
Continue Zosyn
Original Note:
Today's Communication/Plan
-
Continue antibiotics covering post flu, possibly aspiration pneumonia
Monitor CBC and temperature curve.
Aspiration precautions.
Wound care.
Assessment / Plan
Assessment / Plan
Impression:
Toxic metabolic encephalopathy secondary to infection
Influenza A bronchitis
Acute hypoxic respiratory insufficiency developed on 10/30.
Pneumonia, possibly community-acquired post flu, also with reasonable aspiration risk and aspiration pneumonia.
Left-sided colitis
Sepsis present on admission (TME, fever, hypotension, leukocytosis)
Hypotension multifactorial likely in the settings of low volume status. Responded to IV fluids. Now Resolved.
Mild Acute on Chronic HFpEF.
Hyponatremia
Aspiration risk
Probable small left pleural effusion on chest x-ray
Other conditions:
CAD with history of PTCA details unknown.
Severe calcific atherosclerotic plaque in the thoracic aorta and coronary arteries on chest x-ray
PAD status post bilateral lower extremity revascularization in 2023
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
Chronic CHF preserved EF.
Essential hypertension
IDDM
Anemia of chronic disease
BPH
GERD
Obstructive sleep apnea on nightly CPAP previously
Chronic ambulatory dysfunction, multifactorial due to diabetic neuropathy, PAD, cognitive status
Dementia likely vascular type
Plan:
Toxic metabolic encephalopathy likely multifactorial in the settings of infection including influenza A and colitis. Remains febrile -- last fever was 10/25/24 at 4:35 AM (received Tylenol)
Continue supportive care.
Close neurologic monitoring.
Mental status improved significantly and patient has been more interactive.
Influenza A bronchitis.
Not hypoxic on presentation
Imaging with chest x-ray and CT with no evidence of parenchymal infiltrates
Continue Tamiflu through 10/27
Given altered mental status remains aspiration risk.
Speech evaluation.
Diet has been advanced with aspiration precaution
Acute hypoxic respiratory insufficiency developed on 10/30.
Pneumonia, possibly community-acquired, post influenza, also with reasonable risk for aspiration pneumonia.
Known MRSA positive
Antibiotics broadened broaden on 10/30 to vancomycin and Zosyn
Aspiration precautions
Follow temperature curve
Follow CBC
Acute on Chronic HFpEF
CXR 10/25/24 with pulmonary edema, proBNP elevated at 2970 (which is highly specific for CHF even when corrected for his age)
Good response to diuresis
Respiratory status stable with no requirements for supplemental oxygen.
Transition off IV Lasix to standing dose of oral Lasix at 20 mg daily. Monitor oral intake and volume status closely.
Resumed Hydralazine on 10/25/24
Resume Coreg on 10/26/24 as appears patient blood pressure appears elevated and HR is good
Initiated on ga
Left-sided colitis
Infectious versus ischemic (latest most likely given dehydration and underlying vasculopathy)
Patient complains of left-sided pain -- currently appears comfortable, getting Tylenol as needed.
CT scan consistent with sigmoid colitis with differential infectious versus ischemic. Patient is at the high risk for latest (CAD/PAD)
Reported loose stools without hematochezia
Stool negative for C. difficile. Cultures coming back as mostly negative, shiga toxin still pending.
Blood cultures with no growth to date.
Empiric treatment with Zosyn initiated on 10/22.
Narrow antibiotics to Unasyn. Will complete total of 7 to 10 days of antibiotic therapy.
Advance diet -- currently on IDDSI 5 Minced and Moist & Thin Liquids
PAD
Extensive bilateral revascularization procedures in 2023
Chronic trophic wounds.
Continue wound care.
Continue statin.
Continue DAPT
Patient scheduled for vascular procedure on November 03. Will discuss with vascular surgery while patient in the hospital
CAD with prior history of revascularization.
Remains on DAPT and statin.
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
Hypertension
Resumed Hydralazine on 10/25/24 given high blood pressure
Also resuming Coreg on 10/26/24 as above
Getting IV Lasix
Type 2 diabetes/IDDM 2
Updated hemoglobin A1c 9.5.
Patient previously on standing dose of Lantus/NovoLog, not currently.
Initiated on Farxiga over this admission.
Increase basal bolus to moderate dose.
Monitor serial Accu-Cheks. May need standing dose of long-acting insulin. So far oral intake remains erratic.
GERD continue PPI
BPH baseline monitor for retention.
Continue Flomax
Anticipated Discharge: > 48 hours
Subjective/Interval History
-
Date of Service: October 31, 2024
Objective Data
-
Labs:
Laboratory Results
10/31/24
12:34
WBC 10.9 H
Hgb 9.3 L
Hct 27.3 L
Plt Count 370
Sodium Pending
Potassium Pending
Chloride Pending
Carbon Dioxide Pending
BUN Pending
Creatinine Pending
Glucose Pending
Calcium Pending
Vital Signs:
Vital Signs
Temp Pulse Resp BP Pulse Ox
97.4 F 68 18 166/50 95
10/31/24 08:05 10/31/24 08:29 10/31/24 08:05 10/31/24 08:29 10/31/24 10:20
I&O
10/30/24 10/31/24 11/01/24
06:59 06:59 06:59
Intake Total 810 / 810 2009 240 / 240
Output Total
Balance 810 / 0 2009 239 / 239
Physical Exam
-
General: Well Developed and No Apparent Distress
HEENT: Normocephalic, Atraumatic and Moist Mucous Membranes
Respiratory: Clear to Auscultation
Cardiac: Regular Rhythm and S1/S2; Negative Murmur, Rub or Gallop
GI: Soft, Nontender, Nondistended and Normal Bowel Sounds; Negative Organomegaly
Rectal: Deferred by Provider
Musculoskeletal: No Clubbing, No Cyanosis and No Edema
Skin: Negative Rash
Neuro: Other (Lethargic, moves all extremities, although overall with limited neurologic exam due to lethargy)
[2024-10-31 13:06] LABS: Blood Urea Nitrogen 8 mg/dl (9-20); Calcium 7.9 mg/dl (8.4-10.2); Carbon Dioxide 22 mmol/L (22-30); Chloride 100 mmol/L (98-107); Estimated Creatinine Clearance 96 ml/min; Glucose 189 mg/dl (70-99); Potassium 3.6 mmol/L (3.5-5.1); Sodium 133 mmol/L (135-145); eGFR > 60.00
--- NOTE | 2024-10-31 13:33 | PTCARENOTE ---
Addendum entered by Steff You RN 10/31/24 15:04:
Speech therapy asked to re-eval patient per MD, new speech therapy consult placed by this RN per MD.
Original Note:
Patient with 101.2F fever at 1200, medicated with PRN PO tylenol by this RN - see MAR. Patient flushed, drowsy but alert, AAO to self only. Labs drawn by IV nurse, wound care provided to B/L LEs and sacrum/buttocks by this RN and lift slab operator. Temp
recheck by tech one hour after tylenol administration 100.2F. MD made aware of fever, no new orders at this time. IV Zosyn infusing through R FA IV. Aspiration precautions maintained, POX 93% on 2L. Daughter at bedside, updated on plan of care.
--- NOTE | 2024-10-31 14:27 | CM ---
M following re: discharge planning.
Reviewed pt's chart, met with pt.
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
[facility] nursing report: [phone]
Discharge instructions fax: [phone]
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
CM will follow to assist pt with discharge to [facility].
[2024-10-31 15:53] VITALS: BP 117/39
[2024-10-31 16:52] LABS: Glucose - Point of Care 193 mg/dl (70-99)
[2024-10-31] MEDS: NOVOLOG FLEXPEN-MODERATE RESISTANCE 1 UNITS SC (16:52)
[2024-10-31] MEDS: LOVENOX 40 MG SC (17:00)
[2024-10-31] MEDS: LIPITOR 10 MG PO (21:29)
[2024-10-31 21:45] LABS: Glucose - Point of Care 144 mg/dl (70-99)
[2024-10-31 23:19] VITALS: BP 106/45
[2024-11-01] MEDS: ZOSYN 50 IV ×3 (01:23→20:22)
[2024-11-01] MEDS: TYLENOL 650 MG PO ×3 (01:27→21:25)
[2024-11-01] MEDS: ROBITUSSIN 200 MG PO ×3 (01:27→21:26)
[2024-11-01 06:00] VITALS: BMI 30.3
[2024-11-01 07:00] VITALS: BP 131/43
[2024-11-01] MEDS: NOVOLOG FLEXPEN-MODERATE RESISTANCE SC ×3 (08:39→16:28)
[2024-11-01] MEDS: PLAVIX 75 MG PO (08:40)
[2024-11-01] MEDS: APRESOLINE 10 MG PO ×3 (08:40→21:24)
[2024-11-01] MEDS: ZOSYN IV ×2 (08:40→08:51)
[2024-11-01] MEDS: KCL 20 MEQ PO ×2 (08:40→14:35)
[2024-11-01] MEDS: FLOMAX 0.4 MG PO (08:40)
[2024-11-01] MEDS: ASPIR LOW (ENTERIC COATED) 81 MG PO (08:40)
[2024-11-01] MEDS: DESENEX/MITRAZOL/ZEASORB 1 APPLIC TOPICAL ×2 (08:41→20:26)
[2024-11-01] MEDS: COREG 25 MG PO ×2 (08:41→20:21)
[2024-11-01] MEDS: PROTONIX 40 MG PO (08:41)
[2024-11-01] MEDS: LASIX 20 MG PO (08:41)
[2024-11-01] MEDS: FARXIGA 5 MG PO (08:41)
[2024-11-01] MEDS: HYDROPHOR 1 APPLIC TOPICAL (08:42)
[2024-11-01] MEDS: ZINC OXIDE OINTMENT 1 APPLIC TOPICAL ×3 (08:42→21:23)
--- NOTE | 2024-11-01 09:35 | W.PN.HOSP.TC ---
Today's Communication/Plan
-
.
Assessment / Plan
Assessment / Plan
Impression:
Toxic metabolic encephalopathy secondary to infection
Influenza A bronchitis
Acute hypoxic respiratory insufficiency developed on 10/30.
Pneumonia, possibly community-acquired post flu, also with reasonable aspiration risk and aspiration pneumonia.
Left-sided colitis
Sepsis present on admission (TME, fever, hypotension, leukocytosis)
Hypotension multifactorial likely in the settings of low volume status. Responded to IV fluids. Now Resolved.
Mild Acute on Chronic HFpEF.
Hyponatremia
Aspiration risk
Probable small left pleural effusion on chest x-ray
Other conditions:
CAD with history of PTCA details unknown.
Severe calcific atherosclerotic plaque in the thoracic aorta and coronary arteries on chest x-ray
PAD status post bilateral lower extremity revascularization in 2023
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
Chronic CHF preserved EF.
Essential hypertension
IDDM
Anemia of chronic disease
BPH
GERD
Obstructive sleep apnea on nightly CPAP previously
Chronic ambulatory dysfunction, multifactorial due to diabetic neuropathy, PAD, cognitive status
Dementia likely vascular type
Plan:
Toxic metabolic encephalopathy likely multifactorial in the settings of infection including influenza A and colitis. Remains febrile -- last fever was 10/25/24 at 4:35 AM (received Tylenol)
Continue supportive care.
Close neurologic monitoring.
Mental status improved significantly and patient has been more interactive.
Influenza A bronchitis.
Not hypoxic on presentation
Imaging with chest x-ray and CT with no evidence of parenchymal infiltrates
Continue Tamiflu through 10/27
Given altered mental status remains aspiration risk.
Speech evaluation.
Diet has been advanced with aspiration precaution
Acute hypoxic respiratory insufficiency developed on 10/30.
Pneumonia, possibly community-acquired, post influenza, also with reasonable risk for aspiration pneumonia.
Known MRSA positive
Antibiotics broadened broaden on 10/30 to vancomycin and Zosyn
Aspiration precautions
Follow temperature curve
Follow CBC
Acute on Chronic HFpEF
CXR 10/25/24 with pulmonary edema, proBNP elevated at 2970 (which is highly specific for CHF even when corrected for his age)
Good response to diuresis
Respiratory status stable with no requirements for supplemental oxygen.
Transition off IV Lasix to standing dose of oral Lasix at 20 mg daily. Monitor oral intake and volume status closely.
Resumed Hydralazine on 10/25/24
Resume Coreg on 10/26/24 as appears patient blood pressure appears elevated and HR is good
Initiated on Farxiga
Left-sided colitis
Infectious versus ischemic (latest most likely given dehydration and underlying vasculopathy)
Patient complains of left-sided pain -- currently appears comfortable, getting Tylenol as needed.
CT scan consistent with sigmoid colitis with differential infectious versus ischemic. Patient is at the high risk for latest (CAD/PAD)
Reported loose stools without hematochezia
Stool negative for C. difficile. Cultures coming back as mostly negative, shiga toxin still pending.
Blood cultures with no growth to date.
Empiric treatment with Zosyn initiated on 10/22. Will complete total of 7 to 10 days of antibiotic therapy.
Repeated MRSA screen negative.
Discontinue vancomycin
Continue Zosyn
Advance diet -- currently on IDDSI 5 Minced and Moist & Thin Liquids
PAD
Extensive bilateral revascularization procedures in 2023
Chronic trophic wounds.
Continue wound care.
Continue statin.
Continue DAPT
Patient scheduled for vascular procedure on November 03. Will discuss with vascular surgery while patient in the hospital
CAD with prior history of revascularization.
Remains on DAPT and statin.
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
Essential Hypertension
Resumed Hydralazine on 10/25/24 given high blood pressure
Also resuming Coreg on 10/26/24 as above
Getting IV Lasix
Type 2 diabetes/IDDM 2
Updated hemoglobin A1c 9.5.
Patient previously on standing dose of Lantus/NovoLog, not currently.
Initiated on Farxiga over this admission.
Increase basal bolus to moderate dose.
Monitor serial Accu-Cheks. May need standing dose of long-acting insulin. So far oral intake remains erratic.
GERD continue PPI
BPH baseline monitor for retention.
Continue Flomax
Hyponatremia
Hypokalemia
Stage 3 sacral pressure injury. Buttocks stage 2 along with MASD
Total time spent to see the patient, examine the patient, review data and lab result, discuss treatment plan with the patient, nursing staff around 55 minutes
Anticipated Discharge: > 48 hours
Subjective/Interval History
-
Date of Service: November 01, 2024
He refuses blood work, he denies pain or discomfort in chest or abdomen
Denies sob
Objective Data
-
Labs:
Laboratory Results
11/01/24
06:00
WBC Pending
Hgb Pending
Hct Pending
Plt Count Pending
Sodium Pending
Potassium Pending
Chloride Pending
Carbon Dioxide Pending
BUN Pending
Creatinine Pending
Glucose Pending
Calcium Pending
Vital Signs:
Vital Signs
Temp Pulse Resp BP Pulse Ox
97.9 F 64 18 131/43 98
11/01/24 07:00 11/01/24 07:00 11/01/24 07:00 11/01/24 07:00 11/01/24 07:00
I&O
10/31/24 11/01/24 11/02/24
06:59 06:59 06:59
Intake Total 2009 1040 / 1040
Output Total 126 / 126
Balance 2009 914 / 914
[2024-11-01 11:53] LABS: Glucose - Point of Care 166 mg/dl (70-99)
[2024-11-01 12:37] LABS: Hemoglobin 9.7 g/dL (13.0-18.0); Mean Corp Hgb Conc. 34.6 g/dL (33.0-37.0); Mean Corpuscular Hgb 28.4 pg (27.0-31.0); Mean Corpuscular Volume 81.9 fL (80.0-94.0); Mean Platelet Volume 8.7 fL (7.4-10.4); Platelet Count 425 10^3/uL (130-400); Red Blood Cell Count 3.42 10^6/uL (4.70-6.10); Red Cell Dist. Width 14.8 % (11.5-14.5); White Blood Cell Count 10.5 10^3/uL (4.8-10.8)
[2024-11-01 12:47] LABS: Blood Urea Nitrogen 6 mg/dl (9-20); Calcium 8.2 mg/dl (8.4-10.2); Carbon Dioxide 22 mmol/L (22-30); Chloride 100 mmol/L (98-107); Estimated Creatinine Clearance 113 ml/min; Glucose 187 mg/dl (70-99); Potassium 3.3 mmol/L (3.5-5.1); Sodium 133 mmol/L (135-145); eGFR > 60.00
[2024-11-01 15:00] VITALS: BP 115/45
[2024-11-01 16:22] LABS: Glucose - Point of Care 202 mg/dl (70-99)
[2024-11-01] MEDS: LOVENOX 40 MG SC (17:39)
[2024-11-01] MEDS: LIPITOR 10 MG PO (21:23)
[2024-11-01 21:29] LABS: Glucose - Point of Care 151 mg/dl (70-99)
[2024-11-01 23:37] VITALS: BP 107/42
[2024-11-02] MEDS: ZOSYN 50 IV ×5 (01:03→21:04)
[2024-11-02 01:11] VITALS: BP 124/56
[2024-11-02 07:00] VITALS: BP 106/65
[2024-11-02] MEDS: NOVOLOG FLEXPEN-MODERATE RESISTANCE SC ×3 (08:38→17:39)
--- NOTE | 2024-11-02 09:01 | W.PN.HOSP.TC ---
Today's Communication/Plan
-
.
Assessment / Plan
Assessment / Plan
Impression:
Toxic metabolic encephalopathy secondary to infection
Influenza A bronchitis
Acute hypoxic respiratory insufficiency developed on 10/30.
Pneumonia, possibly community-acquired post flu, also with reasonable aspiration risk and aspiration pneumonia.
Left-sided colitis
Sepsis present on admission (TME, fever, hypotension, leukocytosis)
Hypotension multifactorial likely in the settings of low volume status. Responded to IV fluids. Now Resolved.
Mild Acute on Chronic HFpEF.
Hyponatremia
Aspiration risk
Probable small left pleural effusion on chest x-ray
Other conditions:
CAD with history of PTCA details unknown.
Severe calcific atherosclerotic plaque in the thoracic aorta and coronary arteries on chest x-ray
PAD status post bilateral lower extremity revascularization in 2023
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
Chronic CHF preserved EF.
Essential hypertension
IDDM
Anemia of chronic disease
BPH
GERD
Obstructive sleep apnea on nightly CPAP previously
Chronic ambulatory dysfunction, multifactorial due to diabetic neuropathy, PAD, cognitive status
Dementia likely vascular type
Plan:
Toxic metabolic encephalopathy likely multifactorial in the settings of infection including influenza A and colitis. Remains febrile -- last fever was 10/25/24 at 4:35 AM (received Tylenol)
Continue supportive care.
Close neurologic monitoring.
Mental status improved significantly and patient has been more interactive.
Influenza A bronchitis.
Not hypoxic on presentation
Imaging with chest x-ray and CT with no evidence of parenchymal infiltrates
Continue Tamiflu through 10/27
Given altered mental status remains aspiration risk.
Speech evaluation.
Diet has been advanced with aspiration precaution
Acute hypoxic respiratory insufficiency developed on 10/30.
Pneumonia, possibly community-acquired, post influenza, also with reasonable risk for aspiration pneumonia.
Known MRSA positive
Antibiotics broadened broaden on 10/30 to vancomycin and Zosyn
Aspiration precautions
Follow temperature curve
Follow CBC
Acute on Chronic HFpEF
CXR 10/25/24 with pulmonary edema, proBNP elevated at 2970 (which is highly specific for CHF even when corrected for his age)
Good response to diuresis
Respiratory status stable with no requirements for supplemental oxygen.
Transition off IV Lasix to standing dose of oral Lasix at 20 mg daily. Monitor oral intake and volume status closely.
Resumed Hydralazine on 10/25/24
Resume Coreg on 10/26/24 as appears patient blood pressure appears elevated and HR is good
Initiated on Farxiga
Left-sided colitis
Infectious versus ischemic (latest most likely given dehydration and underlying vasculopathy)
Patient complains of left-sided pain -- currently appears comfortable, getting Tylenol as needed.
CT scan consistent with sigmoid colitis with differential infectious versus ischemic. Patient is at the high risk for latest (CAD/PAD)
Reported loose stools without hematochezia
Stool negative for C. difficile. Cultures coming back as mostly negative, shiga toxin still pending.
Blood cultures with no growth to date.
Empiric treatment with Zosyn initiated on 10/22. Will complete total of 7 to 10 days of antibiotic therapy.
Repeated MRSA screen negative.
Discontinue vancomycin
Continue Zosyn
Advance diet -- currently on IDDSI 5 Minced and Moist & Thin Liquids
PAD
Extensive bilateral revascularization procedures in 2023
Chronic trophic wounds.
Continue wound care.
Continue statin.
Continue DAPT
Patient scheduled for vascular procedure on November 03. Will discuss with vascular surgery while patient in the hospital
CAD with prior history of revascularization.
Remains on DAPT and statin.
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
Essential Hypertension
Resumed Hydralazine on 10/25/24 given high blood pressure
Also resuming Coreg on 10/26/24 as above
Getting IV Lasix
Type 2 diabetes/IDDM 2
Updated hemoglobin A1c 9.5.
Patient previously on standing dose of Lantus/NovoLog, not currently.
Initiated on Farxiga over this admission.
Increase basal bolus to moderate dose.
Monitor serial Accu-Cheks. May need standing dose of long-acting insulin. So far oral intake remains erratic.
GERD continue PPI
BPH baseline monitor for retention.
Continue Flomax
Hyponatremia
Hypokalemia
Stage 3 sacral pressure injury. Buttocks stage 2 along with MASD
Total time spent to see the patient, examine the patient, review data and lab result, discuss treatment plan with the patient, nursing staff around 55 minutes
Anticipated Discharge: Within 24 hours
Subjective/Interval History
-
Date of Service: November 02, 2024
no complaints
Objective Data
-
Vital Signs:
Vital Signs
Temp Pulse Resp BP Pulse Ox
98.8 F 75 18 106/65 99
11/02/24 07:00 11/02/24 07:00 11/02/24 07:00 11/02/24 07:00 11/02/24 07:00
I&O
11/01/24 11/02/24 11/03/24
06:59 06:59 06:59
Intake Total 1040 / 1040 700 / 700
Output Total 126 / 126
Balance 914 / 914 700 / 700
[2024-11-02] MEDS: PLAVIX 75 MG PO (09:16)
[2024-11-02] MEDS: LASIX 20 MG PO (09:17)
[2024-11-02] MEDS: FLOMAX 0.4 MG PO (09:17)
[2024-11-02] MEDS: ASPIR LOW (ENTERIC COATED) 81 MG PO (09:17)
[2024-11-02] MEDS: FARXIGA 5 MG PO (09:17)
[2024-11-02] MEDS: APRESOLINE PO ×2 (09:17→21:05)
[2024-11-02] MEDS: PROTONIX 40 MG PO (09:18)
[2024-11-02] MEDS: KCL 20 MEQ PO (09:18)
[2024-11-02] MEDS: COREG PO (09:18)
[2024-11-02] MEDS: HYDROPHOR 1 APPLIC TOPICAL (09:38)
[2024-11-02] MEDS: DESENEX/MITRAZOL/ZEASORB 1 APPLIC TOPICAL ×2 (09:39→21:05)
[2024-11-02 11:36] LABS: Glucose - Point of Care 144 mg/dl (70-99)
[2024-11-02] MEDS: ZINC OXIDE OINTMENT 1 APPLIC TOPICAL ×3 (12:05→21:06)
[2024-11-02 15:00] VITALS: BP 118/41
[2024-11-02] MEDS: ROBITUSSIN 200 MG PO (15:15)
[2024-11-02] MEDS: TYLENOL 650 MG PO (15:15)
[2024-11-02] MEDS: APRESOLINE 10 MG PO (15:15)
[2024-11-02 17:37] LABS: Glucose - Point of Care 147 mg/dl (70-99)
[2024-11-02] MEDS: LOVENOX 40 MG SC (17:49)
[2024-11-02 21:02] LABS: Glucose - Point of Care 151 mg/dl (70-99)
[2024-11-02] MEDS: COREG 25 MG PO (21:04)
[2024-11-02] MEDS: LIPITOR 10 MG PO (21:06)
[2024-11-02 23:10] VITALS: BP 108/48
[2024-11-03 05:06] VITALS: BMI 29.8
[2024-11-03 07:11] VITALS: BP 137/44
[2024-11-03 07:54] LABS: Hemoglobin 9.2 g/dL (13.0-18.0); Mean Corp Hgb Conc. 34.1 g/dL (33.0-37.0); Mean Corpuscular Hgb 28.3 pg (27.0-31.0); Mean Corpuscular Volume 83.1 fL (80.0-94.0); Mean Platelet Volume 8.6 fL (7.4-10.4); Platelet Count 482 10^3/uL (130-400); Red Blood Cell Count 3.25 10^6/uL (4.70-6.10); Red Cell Dist. Width 14.7 % (11.5-14.5); White Blood Cell Count 8.1 10^3/uL (4.8-10.8)
[2024-11-03 08:02] LABS: Glucose - Point of Care 104 mg/dl (70-99)
[2024-11-03 08:22] LABS: Blood Urea Nitrogen 7 mg/dl (9-20); Calcium 7.9 mg/dl (8.4-10.2); Carbon Dioxide 25 mmol/L (22-30); Chloride 102 mmol/L (98-107); Estimated Creatinine Clearance 86 ml/min; Glucose 115 mg/dl (70-99); Potassium 3.4 mmol/L (3.5-5.1); Sodium 134 mmol/L (135-145); eGFR > 60.00
[2024-11-03] MEDS: NOVOLOG FLEXPEN-MODERATE RESISTANCE SC ×2 (09:11→13:24)
[2024-11-03] MEDS: KCL PO (09:12)
[2024-11-03] MEDS: KCL ELIXIR 20 MEQ PO (09:13)
[2024-11-03] MEDS: ROBITUSSIN 200 MG PO (09:13)
[2024-11-03] MEDS: PLAVIX 75 MG PO (09:13)
[2024-11-03] MEDS: FARXIGA 5 MG PO (09:13)
[2024-11-03] MEDS: TYLENOL 650 MG PO ×2 (09:13→16:08)
[2024-11-03] MEDS: PROTONIX 40 MG PO (09:13)
[2024-11-03] MEDS: ASPIR LOW (ENTERIC COATED) 81 MG PO (09:13)
[2024-11-03] MEDS: LASIX 20 MG PO (09:14)
[2024-11-03] MEDS: COREG 25 MG PO ×2 (09:14→20:41)
[2024-11-03] MEDS: FLOMAX 0.4 MG PO (09:14)
[2024-11-03] MEDS: APRESOLINE 10 MG PO ×3 (09:14→23:03)
[2024-11-03] MEDS: ZOSYN 50 IV ×2 (09:15→13:49)
[2024-11-03 12:49] LABS: Glucose - Point of Care 127 mg/dl (70-99)
[2024-11-03] MEDS: HYDROPHOR 1 APPLIC TOPICAL (13:23)
[2024-11-03] MEDS: DESENEX/MITRAZOL/ZEASORB 1 APPLIC TOPICAL ×2 (13:23→20:37)
[2024-11-03] MEDS: ZINC OXIDE OINTMENT 1 APPLIC TOPICAL ×3 (13:24→23:06)
--- NOTE | 2024-11-03 15:07 | CM ---
CM following re: discharge planning.
Reviewed pt's chart, met with pt.
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
According to pt will be ready for discharge tomorrow. Pt is aware, expressed his agreement. IMM reviewed, placed on chart, pt has a copy.
Updated pt's clinical faxed to [facility] for a review.
[facility] nursing report: [phone]
Discharge instructions fax: [phone]
D/C plan: return back to [facility] for a mcc care.
CM will follow to assist pt with discharge to [facility].
[2024-11-03 15:15] VITALS: BP 120/60
--- NOTE | 2024-11-03 15:58 | WOUNDNOTE ---
WOC RN note: t/c [facility], spoke with nurse Bhatia who confirmed patient has an air mattress at SNF.
[2024-11-03] MEDS: KCL ELIXIR 40 MEQ PO (16:01)
--- NOTE | 2024-11-03 16:18 | W.PN.HOSP.TC ---
Today's Communication/Plan
-
Mental status improved and at the baseline.
Monitor oral intake
Aspiration precautions
Currently afebrile with normalized WBC.
Observe off antibiotics
Continue supportive care
Assessment / Plan
Assessment / Plan
Impression:
Toxic metabolic encephalopathy secondary to infection
Influenza A bronchitis
Acute hypoxic respiratory insufficiency developed on 10/30.
Pneumonia, possibly community-acquired post flu, also with reasonable aspiration risk and aspiration pneumonia.
Left-sided colitis
Sepsis present on admission (TME, fever, hypotension, leukocytosis)
Hypotension multifactorial likely in the settings of low volume status. Responded to IV fluids. Now Resolved.
Mild Acute on Chronic HFpEF.
Hyponatremia
Aspiration risk
Probable small left pleural effusion on chest x-ray
Other conditions:
CAD with history of PTCA details unknown.
Severe calcific atherosclerotic plaque in the thoracic aorta and coronary arteries on chest x-ray
PAD status post bilateral lower extremity revascularization in 2023
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
Chronic CHF preserved EF.
Essential hypertension
IDDM
Anemia of chronic disease
BPH
GERD
Obstructive sleep apnea on nightly CPAP previously
Chronic ambulatory dysfunction, multifactorial due to diabetic neuropathy, PAD, cognitive status
Dementia likely vascular type
Plan:
Toxic metabolic encephalopathy likely multifactorial in the settings of infection including influenza A and colitis. Remains febrile -- last fever was 10/25/24 at 4:35 AM (received Tylenol)
Continue supportive care.
Close neurologic monitoring.
Mental status improved significantly and patient has been more interactive.
Influenza A bronchitis.
Not hypoxic on presentation
Imaging with chest x-ray and CT with no evidence of parenchymal infiltrates
Continue Tamiflu through 10/27
Given altered mental status remains aspiration risk.
Speech evaluation.
Diet has been advanced with aspiration precaution
Acute hypoxic respiratory insufficiency developed on 10/30.
Pneumonia, possibly community-acquired, post influenza, also with reasonable risk for aspiration pneumonia.
Known MRSA positive
Antibiotics broadened broaden on 10/30 to vancomycin and Zosyn
Aspiration precautions
Follow temperature curve
Follow CBC
Acute on Chronic HFpEF
CXR 10/25/24 with pulmonary edema, proBNP elevated at 2970 (which is highly specific for CHF even when corrected for his age)
Good response to diuresis
Respiratory status stable with no requirements for supplemental oxygen.
Transition off IV Lasix to standing dose of oral Lasix at 20 mg daily. Monitor oral intake and volume status closely.
Resumed Hydralazine on 10/25/24
Resume Coreg on 10/26/24 as appears patient blood pressure appears elevated and HR is good
Initiated on
Left-sided colitis
Infectious versus ischemic (latest most likely given dehydration and underlying vasculopathy)
Patient complains of left-sided pain -- currently appears comfortable, getting Tylenol as needed.
CT scan consistent with sigmoid colitis with differential infectious versus ischemic. Patient is at the high risk for latest (CAD/PAD)
Reported loose stools without hematochezia
Stool negative for C. difficile. Cultures coming back as mostly negative, shiga toxin still pending.
Blood cultures with no growth to date.
Empiric treatment with Zosyn initiated on 10/22. Will complete total of 7 to 10 days of antibiotic therapy.
Repeated MRSA screen negative.
Discontinue vancomycin
Continue Zosyn
Advance diet -- currently on IDDSI 5 Minced and Moist & Thin Liquids
PAD
Extensive bilateral revascularization procedures in 2023
Chronic trophic wounds.
Continue wound care.
Continue statin.
Continue DAPT
Patient scheduled for vascular procedure on November 03. Will discuss with vascular surgery while patient in the hospital
CAD with prior history of revascularization.
Remains on DAPT and statin.
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
Essential Hypertension
Resumed Hydralazine on 10/25/24 given high blood pressure
Also resuming Coreg on 10/26/24 as above
Getting IV Lasix
Type 2 diabetes/IDDM 2
Updated hemoglobin A1c 9.5.
Patient previously on standing dose of Lantus/NovoLog, not currently.
Initiated on Farxiga over this admission.
Increase basal bolus to moderate dose.
Monitor serial Accu-Cheks. May need standing dose of long-acting insulin. So far oral intake remains erratic.
GERD continue PPI
BPH baseline monitor for retention.
Continue Flomax
Hyponatremia
Hypokalemia
Stage 3 sacral pressure injury. Buttocks stage 2 along with MASD
Anticipated Discharge: Within 24 hours
Subjective/Interval History
-
Date of Service: November 03, 2024
Objective Data
-
Labs:
Laboratory Results
11/03/24
07:16
WBC 8.1
Hgb 9.2 L
Hct 27.0 L
Plt Count 482 H
Sodium 134 L
Potassium 3.4 L
Chloride 102
Carbon Dioxide 25
BUN 7 L
Creatinine 0.7
Glucose 115 H
Calcium 7.9 L
Vital Signs:
Vital Signs
Temp Pulse Resp BP Pulse Ox
99.3 F 71 16 120/60 97
11/03/24 07:11 11/03/24 16:05 11/03/24 07:11 11/03/24 16:05 11/03/24 07:11
I&O
11/02/24 11/03/24 11/04/24
06:59 06:59 06:59
Intake Total 700 / 700 940 / 940
Balance 700 / 700 940 / 940
Physical Exam
-
General: Well Developed and No Apparent Distress
HEENT: Normocephalic, Atraumatic and Moist Mucous Membranes
Respiratory: Clear to Auscultation
Cardiac: Regular Rhythm and S1/S2; Negative Murmur, Rub or Gallop
GI: Soft, Nontender, Nondistended and Normal Bowel Sounds; Negative Organomegaly
Rectal: Deferred by Provider
Musculoskeletal: No Clubbing, No Cyanosis and No Edema
Skin: Negative Rash
Neuro: Other (Lethargic, moves all extremities, although overall with limited neurologic exam due to lethargy)
[2024-11-03] MEDS: LOVENOX 40 MG SC (17:41)
[2024-11-03] MEDS: NOVOLOG FLEXPEN-MODERATE RESISTANCE 1 UNITS SC (17:50)
[2024-11-03 17:51] LABS: Glucose - Point of Care 165 mg/dl (70-99)
[2024-11-03 20:54] LABS: Glucose - Point of Care 144 mg/dl (70-99)
[2024-11-03 23:01] VITALS: BP 145/54
[2024-11-03] MEDS: LIPITOR 10 MG PO (23:06)
[2024-11-04 05:42] VITALS: BMI 29.6
[2024-11-04 07:00] VITALS: BP 139/53
[2024-11-04 07:06] LABS: Glucose - Point of Care 115 mg/dl (70-99)
[2024-11-04] MEDS: NOVOLOG FLEXPEN-MODERATE RESISTANCE SC ×2 (07:07→12:11)
[2024-11-04] MEDS: APRESOLINE 10 MG PO ×2 (09:27→16:12)
[2024-11-04] MEDS: ASPIR LOW (ENTERIC COATED) 81 MG PO (09:27)
[2024-11-04] MEDS: KCL ELIXIR 20 MEQ PO (09:27)
[2024-11-04] MEDS: PLAVIX 75 MG PO (09:28)
[2024-11-04] MEDS: FARXIGA 5 MG PO (09:28)
[2024-11-04] MEDS: COREG 25 MG PO (09:28)
[2024-11-04] MEDS: LASIX 20 MG PO (09:29)
[2024-11-04] MEDS: FLOMAX 0.4 MG PO (09:29)
[2024-11-04] MEDS: PROTONIX 40 MG PO (09:29)
[2024-11-04] MEDS: DESENEX/MITRAZOL/ZEASORB 1 APPLIC TOPICAL (09:30)
[2024-11-04] MEDS: ZINC OXIDE OINTMENT 1 APPLIC TOPICAL (09:30)
[2024-11-04] MEDS: HYDROPHOR 1 APPLIC TOPICAL (09:31)
[2024-11-04] MEDS: TYLENOL 650 MG PO (09:57)
[2024-11-04] MEDS: ROBITUSSIN 200 MG PO (09:57)
[2024-11-04 12:01] LABS: Glucose - Point of Care 140 mg/dl (70-99)
--- NOTE | 2024-11-04 12:40 | W.DS.TRANS ---
DC Summary - Director Of Surgery
-
Discharge Instructions:
Discharge Diagnosis/Procedures Impression:
Toxic metabolic encephalopathy secondary to
infection
Influenza A bronchitis
Acute hypoxic respiratory insufficiency
developed on 10/30.
Pneumonia, possibly community-acquired post flu,
also with reasonable aspiration risk and
aspiration pneumonia.
Left-sided colitis
Sepsis present on admission (TME, fever,
hypotension, leukocytosis)
Hypotension multifactorial likely in the
settings of low volume status. Responded to IV
fluids. Now Resolved.
Mild Acute on Chronic HFpEF.
Hyponatremia
Aspiration risk
Probable small left pleural effusion on chest x-
ray
Other conditions:
CAD with history of PTCA details unknown.
Severe calcific atherosclerotic plaque in the
thoracic aorta and coronary arteries on chest x-
ray
PAD status post bilateral lower extremity
revascularization in 2023
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
Chronic CHF preserved EF.
Essential hypertension
IDDM
Anemia of chronic disease
BPH
GERD
Obstructive sleep apnea on nightly CPAP
previously
Chronic ambulatory dysfunction, multifactorial
due to diabetic neuropathy, PAD, cognitive
status
Dementia likely vascular type
Diet Diabetic, Carb Controlled,Other diet
Additional Diets minced, moist
Instructions:
Stand-Alone Forms:
Changes to Home Medications: Yes
Discharge Medications:
DC Medications w/original date entered in [facility]
acetaminophen 325 mg tablet 650 mg PO Q6HPRN PRN mild pain 04/04/24
aspirin 81 mg tablet,delayed release 81 mg PO DAILY Blood Clot Prevention/Tx 04/04/24
carvedilol 25 mg tablet 25 mg PO BID Blood Pressure 04/04/24
ergocalciferol (vitamin D2) 1,250 mcg (50,000 unit) capsule 1,250 mcg PO MO Supplement 04/04/24
furosemide 40 mg tablet 20 mg PO DAILY Fluid Retention/Swelling 04/04/24
hydralazine 10 mg tablet 10 mg PO TID Blood Pressure 04/04/24
insulin aspart U-100 100 unit/mL (3 mL) subcutaneous pen 0 sliding scale dose SC ACHS Diabetes 04/04/24
magnesium oxide 400 mg (241.3 mg magnesium) tablet (MagOx) 400 mg PO BID Supplement 04/04/24
omeprazole 20 mg tablet,delayed release 20 mg PO DAILY Gastrointestinal Issue 04/04/24
tamsulosin 0.4 mg capsule 0.4 mg PO DAILY Urinary Issue 04/04/24
zinc oxide 12 % topical cream 1 applic topical TID PERIANAL AREA 04/04/24
clopidogrel 75 mg tablet 75 mg PO DAILY #30 tabs 04/30/24
atorvastatin 10 mg tablet 10 mg PO HS 10/22/24
balsam zbigniew-castor oil topical ointment (Venelex topical ointment) 1 applic topical BID BUTTOCK,SACRUM 10/22/24
bisacodyl 10 mg rectal suppository (Dulcolax (bisacodyl)) 10 mg HI DAILYPRN PRN IF NO BM MOM 10/22/24
loperamide 2 mg tablet 2 mg PO Q8HPRN PRN DIARRHEA 10/22/24
magnesium hydroxide 400 mg/5 mL oral suspension (Milk of Magnesia) 2,400 mg PO HSPRN PRN IF NO BM BY 3RD DAY 10/22/24
miconazole nitrate 2 % topical powder (Antifungal (miconazole)) 1 applic topical BID REDNESS,FOLDS,ABD FOLDS 10/22/24
potassium chloride 20 mEq tablet,extended release 20 meq PO DAILY 10/22/24
sodium chloride-hypochlorous acid 0.033 % irrigation solution (Vashe) 1 irrig irrigation DAILY LEFT HEEL 10/22/24
sodium chloride-hypochlorous acid 0.033 % irrigation solution (Vashe) 1 irrig irrigation DAILYPRN PRN LEFT HEEL 10/22/24
dapagliflozin propanediol 5 mg tablet 5 mg PO DAILY #30 tabs 11/04/24
Home Medication Changes
Farxiga added
Pending Results: No
--- NOTE | 2024-11-04 13:37 | CM ---
CM following re: discharge planning.
Reviewed pt's chart, met with pt and pt's daughter at bedside. .
Pt is a nursing home care resident at [facility], bed bound, on Medicaid bed hold.
Discharge order noted. Both pt and his daughter are aware, expressed their agreement. IMM reviewed, placed on chart, pt has a copy.
Updated pt's clinical faxed to [facility] for a review. CM spoke to Liaison Almita and she confirmed that pt is accepted for admission today.
arranged ambulance transport BLS, picking machine operator helper time 4:30 p.m. [facility] completed and left with
[facility] nursing report: [phone]
Discharge instructions fax: [phone]
D/C plan: return back to [facility] for a joint terminal attack controller care.
[2024-11-04 15:00] VITALS: BP 139/48
[2024-11-04] MEDS: ZINC OXIDE OINTMENT TOPICAL (16:12)
[2024-11-04 16:21] VITALS: BP 139/48
--- NOTE | 2024-11-04 16:51 | PTCARENOTE ---
Patient discharged back to [facility], transported [facility]. This RN removed patient's IV and called report to Jaime at facility. Belongings gathered in room by daughter at bedside, patient changed and hygiene provided prior to DC.
Fiber boots in place, B/L LEs wrapped per wound care order. Vitals taken prior to Dc.
== END 2024-11-04 17:36 | DRG 871 ==
LOC: 2 NORTH 13:09
PROVIDERS: Hospitalist; Internal Medicine; Registered Nurse; ADMITTING PHYSICIAN Hospitalist; ATTENDING PHYSICIAN Internal Medicine; EMERGENCY PHYSICIAN Emergency Medicine; FAMILY PHYSICIAN Internal Medicine
DX: A41.9 Sepsis, unspecified organism (principal); G92.8 Other toxic encephalopathy; L89.153 Pressure ulcer of sacral region, stage 3; I50.33 Acute on chronic diastolic (congestive) heart failure; J69.0 Pneumonitis due to inhalation of food and vomit; K51.50 Left sided colitis without complications; E87.1 Hypo-osmolality and hyponatremia; J10.1 Influenza due to other identified influenza virus with other respiratory manifestations; E86.0 Dehydration; I25.10 Atherosclerotic heart disease of native coronary artery without angina pectoris; I11.0 Hypertensive heart disease with heart failure; E11.65 Type 2 diabetes mellitus with hyperglycemia; E11.40 Type 2 diabetes mellitus with diabetic neuropathy, unspecified; D63.8 Anemia in other chronic diseases classified elsewhere; N40.0 Benign prostatic hyperplasia without lower urinary tract symptoms; R26.2 Difficulty in walking, not elsewhere classified; G47.33 Obstructive sleep apnea (adult) (pediatric); K21.9 Gastro-esophageal reflux disease without esophagitis; F01.50 Vascular dementia, unspecified severity, without behavioral disturbance, psychotic disturbance, mood disturbance, and anxiety; E87.6 Hypokalemia; Z98.61 Coronary angioplasty status; Z74.01 Bed confinement status
CPT/HCPCS: 71045; 71046; 71250; 74019; 74176; 80048; 80053; 81003; 81015; 82962; 83036; 83605; 83880; 85025; 85027; 87040; 87045; 87046; 87324; 87427; 87449; 87502; 87641; 87811; 92526; 92610; 93005; 96361; 96374; 99285

== ENCOUNTER 2024-12-28 09:35 | Inpatient (IN) | payer MEDICARE, OTHER, SELFPAY ==
[2024-12-26] VITALS (8 sets, daily range): BP systolic 107–130; BP diastolic 45–58; BMI 26.1; BMI 25.1
--- NOTE | 2024-12-26 15:21 | ED.GENMED ---
History of Present Illness
General
Chief Complaint: Skin Problem
Source: patient and family
Exam Limitations: none
Time Seen by Provider: 12/26/24 15:09
History of Present Illness
History of Present Illness:
See MDM
Past History
Past History
ED Past Medical History: CAD, CHF, HTN, Hypercholesterolemia and Other (Peripheral vascular disease. Chronic lymphedema. Prostatic hypertrophy)
Phy Exam
Physical Exam
Physical Exam:
See MDM
Sepsis
Sepsis Screening
Sepsis Assessment: Sepsis Ruled Out
Sepsis Screen
Sepsis Screen: Sepsis Ruled Out
Date: 12/26/24
Time: 17:10
Course
Orders/Labs/Results
Orders:
Orders
12/26/24 15:19
Complete Blood Count/With Diff Urgent
Lactic Acid Q4H
Comment: CANCEL 2nd LACTIC ACID IF 1st LACTIC ACID IS LESS THAN 2
Blood Culture Q30M
MICHEAL Source: Blood/Venous
Specimen Description:
Piperacillin/Tazo 3.375 Gram [Zosyn] 3.375 gram in 50 ml IV NOW
12/26/24 15:29
Vancomycin [Vancocin] 2,000 mg 0.9% Sodium Chloride 500 ml [Nss] 500 ml IV NOW
12/26/24 15:45
Blood Culture Q30M
MICHEAL Source: Blood/Venous
Specimen Description:
12/26/24 16:34
Comprehensive Metabolic Panel Urgent
12/26/24 17:06
0.9% Sodium Chloride 1000 ml [Nss] 1,000 ml IV BOLUS
12/26/24 19:15
Lactic Acid Q4H
Comment: CANCEL 2nd LACTIC ACID IF 1st LACTIC ACID IS LESS THAN 2
Abnormal Lab Results
12/26/24 12/26/24
15:19 16:34
WBC 11.2 H 10^3/uL
(4.8-10.8)
RBC 4.43 L 10^6/uL
(4.70-6.10)
Hgb 12.6 L g/dL
(13.0-18.0)
Hct 38.0 L %
(39.0-52.0)
RDW 15.8 H %
(11.5-14.5)
Plt Count 481 H 10^3/uL
(130-400)
Abs Immat Gran (auto) 0.1 H 10^3/uL
(0-0.05)
Absolute Neuts (auto) 8.1 H 10^3/uL
(1.4-6.5)
Absolute Monos (auto) 0.7 H 10^3/uL
(0.1-0.6)
Immature Gran % 0.6 H %
(0-0.5)
Lymphocytes % 19.0 L %
(20.5-51.1)
Sodium 130 L mmol/L
(135-145)
Carbon Dioxide 20 L mmol/L
(22-30)
Creatinine 0.6 L mg/dL
(0.7-1.3)
Glucose 228 H mg/dl
(70-99)
Lactic Acid 2.4 H mmol/L
(0.7-2.0)
AST 14 L U/L
(17-59)
Total Protein 6.2 L g/dl
(6.3-8.2)
Albumin 3.3 L g/dl
(3.5-5.0)
12/26/24 15:19
12/26/24 16:34
Vital Signs
Initial and Last Documented VS:
Initial Vital Signs
Temp Pulse Resp BP Pulse Ox
98.6 F 79 16 107/56 99
12/26/24 14:40 12/26/24 14:40 12/26/24 14:40 12/26/24 14:40 12/26/24 14:40
Last Documented Vital Signs
Temp Pulse Resp BP Pulse Ox
98.6 F 73 15 130/58 99
12/26/24 14:40 12/26/24 16:00 12/26/24 16:00 12/26/24 16:00 12/26/24 16:00
MDM/Problems Addressed
Differential Diagnosis Includes:
HPI and MDM Narrative:
79-year-old male presenting for evaluation of worsening leg wounds. Patient sees wound care and he was sent in with concern for possible sepsis. However, patient does not have significant vital sign abnormality to suggest SIRS criteria.
Regardless, patient does have wounds to both legs that are currently wrapped. When they were unwrapped, it revealed wounds with mild cellulitic surrounding changes. Patient also found to have sacral wound ulcer as well with cellulitic changes.
Case discussed with his daughter who states that patient appears more confused than normal and she is worried that this is a recurrent of skin infection. She states last time he was like this, he required vancomycin and Zosyn
Daughter also raises concern due to his peripheral vascular disease
Physical exam
General: Sitting in bed with out discomfort
HEENT: protecting airway
Neck: appears supple
CV: No evidence of cyanosis
Resp: No accessory muscle use
Abd: Non-distended
Extremities: Wounds to both legs with cellulitic changes.
Neuro: alert
Psych: Flat affect
Skin: Intact
Problems Addressed including Acute and Chronic Conditions affecting care:
1. Leg wounds
Acuity: acute on chronic
Prognosis: stable
Details: Given the concern for cellulitis in the setting of peripheral vascular disease, will start IV antibiotics
Update:
Patient does not meet SIRS criteria but does have an elevated lactic acid. Will give fluids
Differential Diagnosis (but not limited to): Cellulitis, osteomyelitis
Testing considered: Pelvic x-ray
Drug therapy (if applicable): OTC meds, please see d/c instruction regarding Rx drugs
Amount and/or Complexity of Data Reviewed
Clinical info obtained from: Patient and daughter
External data reviewed: Prior episode of cellulitis requiring IV antibiotics
Labs I independently reviewed (but not limited to): Leukocytosis, elevated lactic acid
Radiology: N/A
Pulse Ox: not hypoxic
EKG independently reviewed: N/A
Taxi Proprietor: N/A
Critical Care: N/A
Risk of Complication:
Social Determinants of health: Good social support
Discussed with other providers: Hospitalist
Escalation of Care includes Admit/Obs: Given the concern for leg wound infections and sacral decubitus infection, will start IV antibiotics and admit
Occasional wrong word or 'sound a like' substitutions may have occurred due to the inherent limitations of voice recognition software. Read the chart carefully and recognize, using context, where substitutions have occurred.
*Pulse Oximetry
SaO2: 97
Oxygen Mode of Delivery: Room air
Patient hypoxic: no
*Critical Care Note
Total Time (30-74mins, 75-104mins- exclusive of procedures): Not Applicable
ED Attending Note
-
Portions of this chart may have been created with voice recognition software.� Occasional wrong word or��sound alike� substitutions may have occurred due to the inherent limitations of voice recognition software.
Discharge Plan
Departure
Patient Disposition: Admit
Date of Disposition: 12/26/24
Time of Disposition: 17:11
Admit to: Med/Surg
Presentation/result/management discussed w/ accepting MD/DO: Hospitalist
Discharge Problem:
Open leg wound, Decubitus ulcer of sacral area
Prescriptions:
No Action
furosemide 40 mg Tablet
20 mg PO DAILY
carvedilol 25 mg Tablet
25 mg PO BID
acetaminophen 325 mg Tablet
650 mg PO Q6HPRN PRN (Reason: mild pain)
aspirin 81 mg Tablet,Delayed Release (Dr/Ec)
81 mg PO DAILY
tamsulosin 0.4 mg Capsule
0.4 mg PO DAILY
ergocalciferol (vitamin D2) 1,250 mcg (50,000 unit) Capsule
1,250 mcg PO MO
insulin aspart U-100 100 unit/mL (3 mL) Insulin Pen
0 sliding scale dose SC ACHS
Rx Instructions:
201-250= 4u; 251-300- 6u; 301-350= 8u; 351-400= 10u
omeprazole 20 mg Tablet,Delayed Release (Dr/Ec)
20 mg PO DAILY
zinc oxide 12 % Cream
1 applic TOPICAL TID
clopidogrel 75 mg Tablet
75 mg PO DAILY Qty: 30 0RF
loperamide 2 mg Tablet
2 mg PO Q8HPRN PRN (Reason: DIARRHEA)
miconazole nitrate [Antifungal (miconazole)] 2 % Powder
1 applic TOPICAL BID
magnesium hydroxide [Milk of Magnesia] 400 mg/5 mL Suspension
2,400 mg PO HSPRN PRN (Reason: IF NO BM BY 3RD DAY)
bisacodyl [Dulcolax (bisacodyl)] 10 mg Suppository
10 mg [place] DAILYPRN PRN (Reason: IF NO BM MOM)
potassium chloride 20 mEq Tablet Extended Release
20 meq PO DAILY
Vashe 0.033 % Irrigation Solution
1 irrig IRRIGATION DAILYPRN PRN (Reason: LEFT HEEL)
Vashe 0.033 % Irrigation Solution
1 irrig IRRIGATION DAILY
atorvastatin 10 mg tablet
10 mg PO HS
Jardiance 10 mg Tablet
10 mg PO DAILY
Referrals:
Esequiel Urbina MD [Family Provider]
Interventions
Interventions:
*Risk Screen - Suicide Last Done: 12/26/24 14:40
*General Assessment Last Done: 12/26/24 15:05
*Neglect/Abuse Screening Last Done: 12/26/24 14:40
*ED- Fall Risk Assessment Last Done: 12/26/24 15:05
*ED COVID-19 Vaccine History Last Done: 12/26/24 15:05
ED-Skin Assessment Last Done: 12/26/24 15:58
Discharge Date and Time
Print Language: Hong Konger
[2024-12-26] MEDS: ZOSYN 50 IV ×2 (15:31→22:09)
[2024-12-26 15:41] LABS: Hematocrit 38.0 % (39.0-52.0); Hemoglobin 12.6 g/dL (13.0-18.0); Mean Corp Hgb Conc. 33.2 g/dL (33.0-37.0); Mean Corpuscular Volume 85.8 fL (80.0-94.0); Nucleated Red Blood Cells % 0 % (-); Platelet Count 481 10^3/uL (130-400); Red Cell Dist. Width 15.8 % (11.5-14.5)
[2024-12-26] MEDS: VANCOCIN 540 MG IV (15:56)
[2024-12-26 16:57] LABS: ALT (SGPT) < 10 U/L (0-50); AST (SGOT) 14 U/L (17-59); Albumin 3.3 g/dl (3.5-5.0); Alkaline Phosphatase 83 U/L (38-126); Blood Urea Nitrogen 14 mg/dl (9-20); Calcium 8.9 mg/dl (8.4-10.2); Carbon Dioxide 20 mmol/L (22-30); Chloride 103 mmol/L (98-107); Estimated Creatinine Clearance 103 ml/min; Glucose 228 mg/dl (70-99); Potassium 4.2 mmol/L (3.5-5.1); Sodium 130 mmol/L (135-145); Total Protein 6.2 g/dl (6.3-8.2); eGFR > 60.00
--- NOTE | 2024-12-26 17:13 | HPS.HSE ---
Family Physician
-
Family Physician: Esequiel Urbina MD
Chief Complaint
-
worsening bilateral leg wounds
History of Present Illness
Patient is a 79-year-old male with past medical history significant for hypertension, hyperlipidemia, HFpEF, type 2 diabetes, dementia, BPH and GERD who presented to [facility] ED for evaluation of worsening bilateral leg wounds. Patient is poor
historian. Review of chart to obtain HPI. Patient sent from [facility] for evaluation of worsening bilateral leg wounds. Patient daughter spoke with ED provider and reported that patient is more confused than normal and when he was like this
before rquired IV antiboitics for improvement.
Medical History
Past Medical History
Past Medical History: Reports Other
Additional Past Medical History:
Hypertension
Hyperlipidemia
Gangrene
HFpEF
Type 2 diabetes
Dementia
BPH
GERD
Acute tracheitis
PVD/PAD
Cellulitis
MA
Dermatitis
Dysphagia
Lymphedema
Osteoarthritis
FRANCESCO
Past Surgical History: Reports Other
Additional Past Surgical History:
Extensive bilateral revascularization procedures in 2023
cardiac cath with PCI
Social History
Tobacco: Former Smoker
Alcohol: None
Drug: None
Personal: Single
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
Family History
Family History: Not pertinent
Allergies / Home Medications
Allergies reflects when Allergies were last updated in [facility].
Home Medications with original date entered in [facility]
Allergy/Medication List:
Allergies
Allergy/AdvReac Type Severity Reaction Status Date / Time
acetic acid Allergy Unknown Verified 12/26/24 14:42
hydromorphone Allergy Unknown Verified 12/26/24 14:42
iodine Allergy Unknown Verified 12/26/24 14:42
morphine Allergy Unknown Verified 12/26/24 14:42
Home Medications
acetaminophen 325 mg tablet 650 mg PO Q6HPRN PRN mild pain 04/04/24
aspirin 81 mg tablet,delayed release 81 mg PO DAILY Blood Clot Prevention/Tx 04/04/24
carvedilol 25 mg tablet 25 mg PO BID Blood Pressure 04/04/24
ergocalciferol (vitamin D2) 1,250 mcg (50,000 unit) capsule 1,250 mcg PO MO Supplement 04/04/24
furosemide 40 mg tablet 20 mg PO DAILY Fluid Retention/Swelling 04/04/24
insulin aspart U-100 100 unit/mL (3 mL) subcutaneous pen 0 sliding scale dose SC ACHS Diabetes 04/04/24
omeprazole 20 mg tablet,delayed release 20 mg PO DAILY Gastrointestinal Issue 04/04/24
tamsulosin 0.4 mg capsule 0.4 mg PO DAILY Urinary Issue 04/04/24
zinc oxide 12 % topical cream 1 applic topical TID PERIANAL AREA 04/04/24
clopidogrel 75 mg tablet 75 mg PO DAILY #30 tabs 04/30/24
atorvastatin 10 mg tablet 10 mg PO HS 10/22/24
bisacodyl 10 mg rectal suppository (Dulcolax (bisacodyl)) 10 mg OR DAILYPRN PRN IF NO BM MOM 10/22/24
loperamide 2 mg tablet 2 mg PO Q8HPRN PRN DIARRHEA 10/22/24
magnesium hydroxide 400 mg/5 mL oral suspension (Milk of Magnesia) 2,400 mg PO HSPRN PRN IF NO BM BY 3RD DAY 10/22/24
miconazole nitrate 2 % topical powder (Antifungal (miconazole)) 1 applic topical BID REDNESS,FOLDS,ABD FOLDS 10/22/24
potassium chloride 20 mEq tablet,extended release 20 meq PO DAILY 10/22/24
sodium chloride-hypochlorous acid 0.033 % irrigation solution (Vashe) 1 irrig irrigation DAILY LEFT HEEL 10/22/24
sodium chloride-hypochlorous acid 0.033 % irrigation solution (Vashe) 1 irrig irrigation DAILYPRN PRN LEFT HEEL 10/22/24
empagliflozin 10 mg tablet (Jardiance) 10 mg PO DAILY 12/26/24
Review of Systems
-
Unable to obtain full review of systems at this time due to: Dementia
Physical Exam
Vital Signs
Vital Signs
Temp Pulse Resp BP Pulse Ox
98.6 F 73 15 130/58 99
12/26/24 14:40 12/26/24 16:00 12/26/24 16:00 12/26/24 16:00 12/26/24 16:00
Physical Exam
General: Well Developed, Well Nourished, No Apparent Distress and Appears Chronically Ill
HEENT: NormoCephalic, Moist mucous membranes, Atraumatic, Nose Appears Normal and Ears Appear Normal
Respiratory: Clear
Cardiac: S1/S2 and Regular Rhythm
Breast: Deferred by me
GI: Soft, Non Tender, Non Distended and Normal Bowel Sounds; No Organomegaly
Rectal: Deferred by Provider
Genito-urinary: Deferred by me
Musculoskeletal: No Clubbing, No Cyanosis and No Edema
Skin: Other (bilateral lower extremity wounds )
Neuro: Awake and Nonfocal/grossly intact
Psych: Apparent Dementia
Laboratory Results
-
12/26/24 15:19
12/26/24 16:34
Laboratory Results
Lactic Acid 2.4 mmol/L (0.7-2.0) H 12/26/24 15:19
Total Bilirubin 0.4 mg/dl (0.2-1.3) 12/26/24 16:34
AST 14 U/L (17-59) L 12/26/24 16:34
ALT < 10 U/L (0-50) 12/26/24 16:34
Alkaline Phosphatase 83 U/L (38-126) 12/26/24 16:34
Data Reviewed
-
Lab Data: Labs Reviewed by me (WBC 11.2, Na+ 130, Lactic 2.4)
Impression/Plan
-
IMPRESSION/PLAN:
#possible infected bilateral lower extremity wounds and possible infected sacral decub
WBC 11.2, Na+ 130, Lactic 2.4
does not meet SIRS criteria
- admit to med/surg
- consult wound care
- continue IV Vanco and Zosyn r/t previous wound culture with multiple drug resistant organisms
- blood cultures pending
- trend lactic
#Hypertension
- continue carvedilol
#Hyperlipidemia
- continue aspirin and atorvastatin
#HFpEF
- daily weights
- I & Os
- continue carvedilol, furosemide and potassium chloride
#Type 2 diabetes
- AccuCheck AC & HS
- SSI
- continue Jardiance
#GERD
- continue omeprazole
#PVD/PAD
s/p extensive bilateral revascularization procedures in 2023
- continue aspirin, atorvastatin and clopidogrel
#BPH
- continue tamsulosin
#FRANCESCO
- continue CPAP
#Dementia
Code status: full code
DVT prophylaxis: lovenox sq
[2024-12-26] MEDS: NSS 1000 IV (17:14)
--- NOTE | 2024-12-26 18:17 | W.PN.UPDATE ---
Update Note
Progress Note Update
This is an addendum to H&P written by Ladonna Madrid on 12/26/2024. �Patient seen and examined independently with TAB CUTTING MACHINE OPERATOR.
79-year-old Chinese-speaking male past medical history of CAD status post PCI, HFpEF, hypertension, diabetes, BPH, obstructive sleep apnea on CPAP, chronic ambulatory dysfunction, functional quadriplegia, PAD status post bilateral lower extremity
vascularization,, chronic wounds of left lower extremity, diabetic neuropathy, dementia, anemia of chronic disease, BPH, presenting with increased confusion, worsening of bilateral lower extremity leg wounds.
Vital signs normal. �Labs show sodium of 130 which is stable. �Blood sugar 228. �Leukocytosis of 11.
Patient with possibly infected bilateral lower extremity wounds. �Also with sacral decubitus pressure ulcer. �Wound care consulted. �Blood cultures pending. �Vancomycin/Zosyn for now given prior wound culture showing multidrug-resistant organisms
and MRSA.
--- NOTE | 2024-12-26 18:53 | EDRN ---
Pt's daughter reports he needs soft/minced foods and he needs to wear his green protective heel boots.
--- NOTE | 2024-12-26 20:23 | PHA.VAN.IN ---
Assessment
- Assessment
Renal Function: Appears similar to baseline (10/30/24 BASELINE SCR: 0.6)
Concomitant Antimicrobials: ZOSYN
- Previous Dosing Experience
Previous Regimen: 1500MG IV Q24H
Date of Regimen: 10/30/24
Provided Trough of: UNKNOWN
Provided AUC of: UNKNOWN
Patient's SCR is: Similar to previous dosing experience (10/30/24 SCR = 0.7)
Patient's weight is: Decreased compared to previous dosing experience (10/30/24 WT = 88.9 KG)
AUC Dosing Plan
- Dosing Variables
Dosing Weight (kg): 77.1
Dosing CrCl (ml/min): 103
Vd coefficient (L/kg): 0.7
- Empiric Dosing
Initial / Loading Dose: 2GM
Maintenance Regimen: 1250MG IV Q24H BASED ON LAST DOSING AND ACCUMULATION RISK
Pharmacokinetics Vancomycin I
- -
Patient Age: 79
Patient Sex: Male
Vancomycin Day #: 1
Indication: Skin And Soft Tissue (BLE WOUNDS; SACRAL DECUB)
Requesting Provider: JONAH
Height / Weight:
Height 5 ft 9 in
Actual Weight 77.111 kg
Pertinent Past Medical History: RECENT ADMIT FOR SIMILAR
- Vital Signs / Lab Results
Temp Pulse Resp BP Pulse Ox
97.7 F 62 20 118/45 98
12/26/24 19:47 12/26/24 19:47 12/26/24 19:47 12/26/24 19:47 12/26/24 19:47
Lab Results - Hematology
12/26/24
15:19
WBC 11.2 H
Lab Results - Chemistry
12/26/24 12/26/24
15:19 16:34
BUN Cancelled 14
Creatinine Cancelled 0.6 L
Estimated Creat Clear Cancelled 103
Albumin Cancelled 3.3 L
12/26/24
15:19
Lactic Acid 2.4 H
[2024-12-26] MEDS: LOVENOX 40 MG SC (20:46)
[2024-12-26] MEDS: LIPITOR 10 MG PO (20:47)
[2024-12-26] MEDS: DESENEX/MITRAZOL/ZEASORB 1 APPLIC TOPICAL (20:47)
[2024-12-26] MEDS: COREG 25 MG PO (20:47)
[2024-12-26] MEDS: TRIPLE PASTE 1 APPLIC TOPICAL (20:48)
[2024-12-26 21:15] LABS: Glucose - Point of Care 166 mg/dl (70-99)
[2024-12-27] MEDS: ZOSYN 50 IV ×4 (03:55→21:19)
[2024-12-27 05:36] VITALS: BMI 25.3
[2024-12-27] MEDS: VANCOCIN 275 MG IV (06:16)
[2024-12-27 07:04] VITALS: BP 148/56
[2024-12-27 07:55] LABS: Glucose - Point of Care 121 mg/dl (70-99)
[2024-12-27] MEDS: NOVOLOG FLEXPEN-HIGH RESISTANCE 1 UNITS SC (07:58)
[2024-12-27] MEDS: LASIX 20 MG PO (08:01)
[2024-12-27] MEDS: PLAVIX 75 MG PO (08:02)
[2024-12-27] MEDS: FARXIGA 10 MG PO (08:02)
[2024-12-27] MEDS: COREG 25 MG PO ×2 (08:02→20:23)
[2024-12-27] MEDS: KCL 20 MEQ PO (08:02)
[2024-12-27] MEDS: FLOMAX 0.4 MG PO (08:04)
[2024-12-27] MEDS: ASPIR LOW (ENTERIC COATED) 81 MG PO (08:04)
[2024-12-27] MEDS: PROTONIX 40 MG PO (08:04)
[2024-12-27] MEDS: TRIPLE PASTE 1 APPLIC TOPICAL ×3 (08:04→21:20)
[2024-12-27] MEDS: DESENEX/MITRAZOL/ZEASORB 1 APPLIC TOPICAL ×2 (08:16→20:24)
--- NOTE | 2024-12-27 10:44 | PHA.VAN.FU ---
Vancomycin Assessment / Plan
- Assessment
Renal Function: No New Labs Today (0600 labs still pending as of this writing)
In the past 24 hrs, patient has been: Afebrile
Concomitant Antimicrobials: pip/tazo
- Dosing Plan
Continue: vancomycin 1250 mg q24 - first dose 12/27 am after 2g LD 12/26
- Monitoring Plan
No level(s) ordered at this time: will consider levels when pt nears steady state
- Follow Up
Pharmacy will continue to follow.
Vancomycin Follow UP
- -
Patient Age: 79
Patient Sex: Male
Vancomycin Day #: 2
Indication: Skin And Soft Tissue (BLE WOUNDS; SACRAL DECUB)
Requesting Provider: JONAH
Height / Weight:
Height 5 ft 9 in
Actual Weight 77.706 kg
Pertinent Past Medical History: RECENT ADMIT FOR SIMILAR
- Vital Signs / Lab Results
Temp Pulse Resp BP Pulse Ox
97.9 F 68 18 148/56 99
12/27/24 07:04 12/27/24 08:01 12/27/24 07:04 12/27/24 08:01 12/27/24 07:04
Lab Results - Hematology
12/26/24
15:19
WBC 11.2 H
Lab Results - Chemistry
12/26/24 12/26/24
15:19 16:34
BUN Cancelled 14
Creatinine Cancelled 0.6 L
Estimated Creat Clear Cancelled 103
Albumin Cancelled 3.3 L
12/26/24 12/26/24
15:19 23:18
Lactic Acid 2.4 H 2.4 H
[2024-12-27 11:08] VITALS: BMI 25.3
--- NOTE | 2024-12-27 11:29 | PTCARENOTE ---
Pt called 911 twice, is refusing all care. Daughter is on her way here. We'll see if he'll cooperate when she arrives. She's about [address] main.
[2024-12-27] MEDS: NOVOLOG FLEXPEN-HIGH RESISTANCE SC (11:59)
--- NOTE | 2024-12-27 12:01 | PTCARENOTE ---
pt refused accucheck and doesn't want lunch. No insulin given.
--- NOTE | 2024-12-27 12:12 | CM ---
Initial assessment completed. Patient is a 79-year-old male with past medical history significant for hypertension, hyperlipidemia, HFpEF, type 2 diabetes, dementia, BPH and GERD who presented to [facility] ED for evaluation of worsening bilateral leg
wounds.
Patient is a LTC resident at [facility]. Patient is bedbound, assisted w/ ADLs. Per daughter, Collette, patient cannot ambulate or sit in a w/c.
PCP: Esequiel Urbina
Pharmacy: [facility]
Patient admitted obs. KULKARNI form verbally reviewed w/ daughter, copy on chart
Will need ambulance transport at d/c
[facility]
Report: [phone]

Plan: Return to [facility] when stable
--- NOTE | 2024-12-27 12:13 | W.PN.HOSP.TC ---
Today's Communication/Plan
-
see note
Assessment / Plan
Assessment / Plan
1. Chronic lower extremity wounds
Sacral decubitus wounds
-Patient has history of peripheral arterial disease and revascularization
-Have lower extremity wound for which patient is getting wound care
-Question of possible infected wound although patient declined to be examined today
-Awaiting patient family to be at bedside to help with examination
-Maintain on empiric vancomycin and Zosyn for now
-Heel offloading shoes has been ordered
2. Acute toxic metabolic encephalopathy
History of dementia
- Discussed with [facility] staff who stated that patient have episodes of confusion on and off mainly during the morning
- At time patient is apprehensive to care due to unfamiliar faces
- Patient not septic, continue monitoring
- Check UA with urine culture if any concerns of UTI
- Tylenol for pain control, patient had history of worsening confusion with narcotics.
- Patient apparently was calling 911 from room phone, Risperdal as needed ordered for agitation
3. PVD/PAD
s/p extensive bilateral revascularization procedures in 2023
- continue aspirin, atorvastatin and clopidogrel
4. Type 2 DM
- AccuCheck AC & HS
- maintain on ISS
- continue Jardiance
Ess[facility]ia Hypertension - continue carvedilol
Hyperlipidemia - continue aspirin and atorvastatin
Chronic diastolic HF - no signs of exacerbation. maintain on home dose coreg/lasix
GERD - continue omeprazole
BPH - continue tamsulosin
FRANCESCO - continue CPAP
Code status: full code
DVT prophylaxis: lovenox sq
Care plan discussed with patient daughter over the phone who is planning to visit patient later in the day
Total time spent 53-minute
Anticipated Discharge: 24 - 48 hours
Subjective/Interval History
-
Date of Service: December 27, 2024
Declining care in the morning
Declined to be evaluated for LE wound
Objective Data
-
Vital Signs:
Vital Signs
Temp Pulse Resp BP Pulse Ox
97.9 F 68 18 148/56 99
12/27/24 07:04 12/27/24 08:01 12/27/24 07:04 12/27/24 08:01 12/27/24 08:54
I&O
12/26/24 12/27/24 12/28/24
06:59 06:59 06:59
Intake Total 720 / 720
Balance 720 / 720
Review of Systems
-
Unable to obtain full review of systems at this time due to: Other (Declined care)
Physical Exam
-
General: Comfortable and Cachectic
HEENT: Negative Oxygen
Skin: Other (Bilateral LE bandage)
Neuro: Awake, Alert and Oriented
[2024-12-27 13:18] LABS: Hematocrit 34.7 % (39.0-52.0); Hemoglobin 11.6 g/dL (13.0-18.0); Mean Corp Hgb Conc. 33.4 g/dL (33.0-37.0); Mean Corpuscular Volume 85.7 fL (80.0-94.0); Platelet Count 446 10^3/uL (130-400); Red Cell Dist. Width 15.8 % (11.5-14.5)
[2024-12-27 13:43] LABS: Blood Urea Nitrogen 10 mg/dl (9-20); Calcium 9.0 mg/dl (8.4-10.2); Carbon Dioxide 21 mmol/L (22-30); Chloride 106 mmol/L (98-107); Estimated Creatinine Clearance 103 ml/min; Glucose 192 mg/dl (70-99); Potassium 3.9 mmol/L (3.5-5.1); Sodium 133 mmol/L (135-145); eGFR > 60.00
--- NOTE | 2024-12-27 14:36 | CON.ID ---
Consultation
-
Date/Time Consultation Requested: 12/27/2024 1316
Date/Time Consultation Performed: 12/27/2024 1415
Requesting Provider: Dr. Herrera
Performing Provider: Dr. Morales
Reason for Consultation: Lower extremity wounds, leukocytosis
Chief Complaint / Past History
History of Present Illness
Tristan Dumont is a 79-year-old man being evaluated the request of Dr. Herrera in regards to lower extremity wounds. History is obtained from chart review, along with patient interview. Additional history was obtained from the patient's daughter
who was at the bedside.
The patient presented to [facility] on 12/26 for worsening leg wounds. The patient has known and longstanding lower extremity wounds, but the daughter states that recently they have become somewhat worse and she is concerned about
superinfection. She additionally reports that he is somewhat more confused over the past several days.
In the ER, the patient was not found to be febrile, but he did have a low-grade leukocytosis. He has been started on empiric antibiotics.
Past History
Additional Past Medical History:
DM2
HTN
HLD
PAD
BLE lymphedema
Chronic BLE wounds follows at [facility]
CAD s/p stent
CHF
FRANCESCO
BPH
Allergy History:
acetic acid Allergy (Verified 12/26/24 14:42)
Unknown
hydromorphone Allergy (Verified 12/26/24 14:42)
Unknown
iodine Allergy (Verified 12/26/24 14:42)
Unknown
morphine Allergy (Verified 12/26/24 14:42)
Unknown
Medications Reviewed: Yes
Current Antibiotics:
Vancomycin
Zosyn
Social History
Tobacco: Former Smoker
Alcohol: Former
Drug: None
[facility]
Review of Systems
Vital Signs
Temp Pulse Resp BP Pulse Ox
97.9 F 68 18 148/56 99
12/27/24 07:04 12/27/24 08:01 12/27/24 07:04 12/27/24 08:01 12/27/24 08:54
Physical Exam
Physical Exam
Constitutional: No Acute Distress, Comfortable, Chronically Ill and Non-toxic
Eyes: No Conjunctival Hemorrhage and Sclera Anicteric
Oral: No Thrush and No Ulcers
Cardiovascular: Regular Rate and S1/S2; Negative S3/S4
Pulmonary: Clear; Negative Wheezes, Rales or Rhonchi
Gastrointestinal: Soft, Non Tender, Non Distended and Normal Bowel Sounds
Wound: Other (Bilateral lower extremities with superficial wounds, with some serous drainage. Mild erythema. Sacral wound/ulceration noted. Significant amount of erythroderma of the sacral and perineal area.)
Neurological: Awake and Alert
Psychological: Calm
Lab / Diagnostic Study Results
12/27/24 13:11
12/27/24 13:11
Abs Immat Gran (auto) 0.1 10^3/uL (0-0.05) H 12/26/24 15:19
Absolute Neuts (auto) 8.1 10^3/uL (1.4-6.5) H 12/26/24 15:19
Absolute Lymphs (auto) 2.1 10^3/uL (1.2-3.4) 12/26/24 15:19
Absolute Monos (auto) 0.7 10^3/uL (0.1-0.6) H 12/26/24 15:19
Absolute Basos (auto) 0.1 10^3/uL (0-0.2) 12/26/24 15:19
Immature Gran % 0.6 % (0-0.5) H 12/26/24 15:19
Neutrophils % 72.0 % (42.2-75.2) 12/26/24 15:19
Lymphocytes % 19.0 % (20.5-51.1) L 12/26/24 15:19
Monocytes % 6.6 % (1.7-9.3) 12/26/24 15:19
Eosinophils % 1.2 % (0-6) 12/26/24 15:19
Basophils % 0.6 % (0-2) 12/26/24 15:19
Lactic Acid 2.4 mmol/L (0.7-2.0) H 12/26/24 23:18
Microbiology Results
Micro:
12/26/24 15:19 Blood Culture - Pending
Blood/Venous
Assessment / Plan
Bilateral lower extremity wounds with suspected superinfection
Suspected cutaneous candidiasis of the sacral and perineal area
Leukocytosis; improved
DM2
HTN
HLD
PAD
BLE lymphedema
Chronic BLE wounds follows at [facility]
CAD s/p stent
CHF
FRANCESCO
BPH
Recommendations:
Continue with local care to the lower extremities.
Agree with initiation of Zosyn. Discontinue further vancomycin for now and watch for clinical improvement.
Topical Desenex powder to the perineal and sacral area for suspected cutaneous candidiasis.
Frequent offloading of the sacral area.
Follow white count and temperature curve.
Follow for clinical improvement.
[2024-12-27 15:15] LABS: Urine Character Clear (Clear)
[2024-12-27 15:31] VITALS: BP 129/51
[2024-12-27 16:47] LABS: Glucose - Point of Care 202 mg/dl (70-99)
[2024-12-27] MEDS: NOVOLOG FLEXPEN-HIGH RESISTANCE 4 UNITS SC (16:49)
[2024-12-27] MEDS: LOVENOX SC ×2 (16:49→16:57)
[2024-12-27] MEDS: LIPITOR 10 MG PO (20:24)
[2024-12-27 23:20] VITALS: BP 140/54
[2024-12-28] MEDS: ZOSYN 50 IV ×4 (03:12→21:41)
--- NOTE | 2024-12-28 03:20 | PTCARENOTE ---
Pt refused blood sugar check last night, states 'no needle'.
[2024-12-28 06:00] VITALS: BMI 25.7
[2024-12-28 07:34] VITALS: BP 129/59
[2024-12-28] MEDS: NOVOLOG FLEXPEN-HIGH RESISTANCE SC ×3 (08:25→17:26)
[2024-12-28 08:28] LABS: Glycohemoglobin (HgbA1c) 7.5 % (4.0-5.6)
[2024-12-28] MEDS: LASIX 20 MG PO (09:06)
[2024-12-28] MEDS: FARXIGA 10 MG PO (09:06)
[2024-12-28] MEDS: KCL 20 MEQ PO (09:06)
[2024-12-28] MEDS: COREG 25 MG PO ×2 (09:06→20:18)
[2024-12-28] MEDS: PLAVIX 75 MG PO (09:06)
[2024-12-28] MEDS: PROTONIX 40 MG PO (09:07)
[2024-12-28] MEDS: ASPIR LOW (ENTERIC COATED) 81 MG PO (09:07)
[2024-12-28] MEDS: FLOMAX 0.4 MG PO (09:07)
[2024-12-28] MEDS: TRIPLE PASTE 1 APPLIC TOPICAL ×3 (09:10→21:41)
[2024-12-28] MEDS: DESENEX/MITRAZOL/ZEASORB 1 APPLIC TOPICAL (09:10)
--- NOTE | 2024-12-28 11:34 | W.PN.ID1 ---
Date of Service
Date of Service: December 28, 2024
Today's Communication
Continue antibiotics.
Assessment / Plan
Bilateral lower extremity wounds with suspected superinfection
Suspected cutaneous candidiasis of the sacral and perineal area
Leukocytosis; improved
DM2
HTN
HLD
PAD
BLE lymphedema
Chronic BLE wounds follows at [facility]
CAD s/p stent
CHF
FRANCESCO
BPH
Recommendations:
Continue with local care to the lower extremities.
Continue with Zosyn for today.
Topical Desenex powder to the perineal and sacral area for suspected cutaneous candidiasis.
Frequent offloading of the sacral area.
Follow white count and temperature curve.
Follow for clinical improvement.
Chief Complaint
-: Cellulitis and Other (Cutaneous candidiasis)
Subjective / Review of Systems
Review of Systems: No Fever and No Chills
Vital Signs / Physical Exam
Vital Signs
Vital Signs
Temp Pulse Resp BP Pulse Ox
98.0 F 70 16 129/59 98
12/28/24 07:34 12/28/24 07:34 12/28/24 07:34 12/28/24 07:34 12/28/24 07:34
Physical Exam
Constitutional: No Acute Distress, Comfortable and Chronically Ill
Eyes: Sclera Anicteric
Cardiovascular: S1/S2; Negative S3/S4
Pulmonary: Non Labored
Gastrointestinal: Soft and Non Distended
Skin: Rash (Sacral/perineal area)
Wound: Other (Lower extremity wounds dressed.)
Psychological: Calm
Objective Data
Lab Data
Lab Results
12/27/24 13:11
12/27/24 13:11
Estimated Creat Clear 103 ml/min 12/27/24 13:11
Lactic Acid 2.4 mmol/L (0.7-2.0) H 12/26/24 23:18
Total Bilirubin 0.4 mg/dl (0.2-1.3) 12/26/24 16:34
AST 14 U/L (17-59) L 12/26/24 16:34
ALT < 10 U/L (0-50) 12/26/24 16:34
Alkaline Phosphatase 83 U/L (38-126) 12/26/24 16:34
Most recent labs reviewed.
Micro Results:
12/26/24 15:19 Blood Culture - Preliminary
Blood/Venous No Growth in 24 hours- Final report to follow
--- NOTE | 2024-12-28 11:49 | W.PN.HOSP.TC ---
Today's Communication/Plan
-
see note
Assessment / Plan
Assessment / Plan
1. Chronic lower extremity wounds with infection/cellulitis
Sacral decubitus wounds
-Patient has history of peripheral arterial disease and revascularization
-Have lower extremity wound for which patient is getting wound care at [facility]
-Able to examine lower extremity wound with help of family as patient was cooperative after daughter present in the room. Left leg wounds were raw, some purulent drainage.
-ID evaluated and patient to be maintained on Zosyn for time being
-Heel offloading shoes has been ordered
-Vascular surgeon involved in care as well per daughter's request.
2. Acute toxic metabolic encephalopathy - improved
History of dementia
- Discussed with [facility] staff who stated that patient have episodes of confusion on and off mainly during the morning
- At time patient is apprehensive to care due to unfamiliar faces
- Patient not septic, continue monitoring
- UA is clear.
- Tylenol for pain control, patient had history of worsening confusion with narcotics.
- Risperidal PRN was ordered as patient was agitated, after daughter talked to patient, somewhat co-operative.
3. PVD/PAD
s/p extensive bilateral revascularization procedures in 2023
- continue aspirin, atorvastatin and clopidogrel
4. Type 2 DM
- AccuCheck AC & HS
- maintain on ISS
- continue Jardiance
Essentia Hypertension - continue carvedilol
Hyperlipidemia - continue aspirin and atorvastatin
Chronic diastolic HF - no signs of exacerbation. maintain on home dose coreg/lasix
GERD - continue omeprazole
BPH - continue tamsulosin
FRANCESCO - continue CPAP
Code status: full code
DVT prophylaxis: lovenox sq
6.29 patient care remains challenging as patient at times declining to do labs or personal care. Language barrier playing a role although patient has memory issues and behavioral issues as well which is limited providing appropriate care. Patient
much more receptive to everything when family at bedside.
Anticipated Discharge: 24 - 48 hours
Subjective/Interval History
-
Date of Service: December 28, 2024
Patient not voicing any complaints
Some language barrier although patient understands Mexican and responds appropriately to certain things
Remains afebrile
Objective Data
-
Labs:
Laboratory Results
12/27/24
13:11
WBC 9.8
Hgb 11.6 L
Hct 34.7 L
Plt Count 446 H
Vital Signs:
Vital Signs
Temp Pulse Resp BP Pulse Ox
98.0 F 70 16 129/59 98
12/28/24 07:34 12/28/24 07:34 12/28/24 07:34 12/28/24 07:34 12/28/24 07:34
I&O
12/27/24 12/28/24 12/29/24
06:59 06:59 06:59
Intake Total 720 / 720 820 / 820
Balance 720 / 720 820 / 820
Review of Systems
-
Unable to obtain full review of systems at this time due to: Language Barrier (Limited at times possible from language barrier versus patient behavior)
Respiratory: Reports No Symptoms
Cardiac: Reports No Symptoms
Abdomen/GI: Reports No Symptoms
Physical Exam
-
General: Comfortable and Cachectic
HEENT: Negative Oxygen
Skin: Other (Bilateral LE bandage)
Neuro: Awake, Alert and Oriented
[2024-12-28 15:10] VITALS: BP 110/50
[2024-12-28 15:22] VITALS: BP 110/50
[2024-12-28 17:12] LABS: Glucose - Point of Care 243 mg/dl (70-99)
[2024-12-28] MEDS: LOVENOX SC (17:26)
[2024-12-28] MEDS: LIPITOR 10 MG PO (20:19)
[2024-12-28] MEDS: DESENEX/MITRAZOL/ZEASORB TOPICAL (20:20)
[2024-12-28 21:29] LABS: Glucose - Point of Care 203 mg/dl (70-99)
[2024-12-28 23:00] VITALS: BP 126/54
[2024-12-29] MEDS: ZOSYN 50 IV ×4 (03:17→22:52)
[2024-12-29 06:00] VITALS: BMI 26.3
[2024-12-29 08:05] VITALS: BP 130/82
[2024-12-29] MEDS: KCL 20 MEQ PO (08:13)
[2024-12-29] MEDS: COREG 25 MG PO ×2 (08:13→20:32)
[2024-12-29] MEDS: PLAVIX 75 MG PO (08:14)
[2024-12-29] MEDS: PROTONIX 40 MG PO (08:14)
[2024-12-29] MEDS: FARXIGA 10 MG PO (08:14)
[2024-12-29] MEDS: ASPIR LOW (ENTERIC COATED) 81 MG PO (08:14)
[2024-12-29] MEDS: FLOMAX 0.4 MG PO (08:14)
[2024-12-29] MEDS: LASIX 20 MG PO (08:14)
[2024-12-29] MEDS: DESENEX/MITRAZOL/ZEASORB 1 APPLIC TOPICAL (08:15)
[2024-12-29] MEDS: TRIPLE PASTE 1 APPLIC TOPICAL ×3 (08:15→23:08)
[2024-12-29] MEDS: NOVOLOG FLEXPEN-HIGH RESISTANCE SC ×3 (08:35→17:14)
--- NOTE | 2024-12-29 09:06 | CON.VAS ---
Addendum entered and electronically signed by Emerson Millan III, MD 12/30/24 14:30:
Patient seen and examined with daughter at the bedside
His bilateral lower extremity wounds were changed with the assistance of his daughter
He has bilateral leg wounds involving the shins and calves, left worse than right. These wounds are very superficial and have clean granulating bases. He has no wounds on his feet or toes. These wounds seem correlate with pressure points. He is
nonambulatory.
His daughter reports that the wounds worsened recently with change in local wound care from the outside facility
Based on the appearance of these wounds (small and superficial) I do not get the sense that the driving force is an arterial occlusive problem. I do get the sense that they will improve with local wound care, pressure offloading and possibly
compression.
My recommendation is to proceed with this approach and hold off on arteriogram at the present time. I will see him back in the office for short interval follow-up. We can always proceed with an arteriogram if wound healing heads in a negative
direction.
Daughter was comfortable with this plan
Emerson Millan III, MD
Vascular Surgery
[facility]
Original Note:
Consultation
Consultation Request
Date/Time Consultation Performed: 12/29/24 10am
Performing Provider: Yana
Reason for Consultation: Nonhealing BL LE wounds
Medical History
-
Chief Complaint: Nonhealing BL LE wounds
History of Present Illness:
79 yo male with PMH chronic lower extremity lymphedema, chronic wounds, diabetes, hypertension, anemia, chronic kidney disease, TN, CAD, CHF, and hyperlipidemia presented to the ER for worsening BL LE leg wounds. Pt is from [facility]. Pt is
known to vascular service was last seen by us 09/17/24 in our office with plans to follow up for BL LE arteriogram in September and again in October these were cancelled due to patient admission for illnesses.
Patient seen at bedside this a.m. with Dr. Millan. Vascular consult for nonhealing bilateral lower extremity wounds. Images in wound care notes. Per the daughter at last office visit right lower extremity wounds were worse than left. Although at
one right lower extremity wounds have healed, left lower extremity with multiple superficial open areas now. Daughter believes wound care was altered at his facility and was too dry which was removing the top layer of skin at dressing changes.
Vascular surgery procedural hx:
04/21/24: Intravascular lithotripsy to right superficial femoral artery and popliteal artery calcified stenoses (6 mm x 80 mm E8 shockwave balloon), Balloon angioplasty and drug-eluting stenting of right popliteal artery and superficial femoral
artery (overlapping 6 mm x 140 mm Zilver PTX stents (x 2)), Sharp excisional debridement of right heel including skin and subcutaneous tissue (wound dimensions 3 cm x 3 cm), Sharp excisional debridement of right Achilles wound including skin,
subcutaneous tissue and tendon (wound dimensions 6 cm x 3 cm), Sharp excisional debridement of left heel wound including skin, subcutaneous tissue and bone (wound dimensions 6 cm x 4 cm)
04/15/24: Intravascular lithotripsy to calcified left external iliac artery stenosis (8 mm x 60 mm M5+ shockwave balloon), Balloon angioplasty and stenting of left external iliac artery stenosis (8 mm x 39 mm Maxwell VBX)
Intravascular lithotripsy to calcified left superficial femoral artery and above-knee popliteal artery stenoses (6 mm x 80 mm E8 shockwave balloon)
Balloon angioplasty and stenting of left superficial femoral artery and above-knee popliteal artery stenosis (overlapping 6 mm x 140 mm Zilver PTX distal; 6 mm x 80 mm Zilver PTX proximal)
Balloon angioplasty and stenting of right common iliac artery stenosis (8 mm x 39 mm Maxwell VBX stent)
Sharp excisional debridement of left heel wound including skin and subcutaneous tissue (wound dimensions 8 cm x 3 cm)
Sharp excisional debridement of left pfeiffer wound including skin, subcutaneous tissue, muscle and fascia (wound dimensions 20 cm x 5 cm)
Sharp excisional debridement of right pfeiffer and ankle wound (wound dimensions 10 cm x 8 cm)
Past Medical History
Past Medical History: Other (Hypertension, Hyperlipidemia, Gangrene, HFpEF, Type 2 diabetes, Dementia, BPH, GERD, Acute tracheitis, PVD/PAD, Cellulitis, TN, Dermatitis, Dysphagia, Lymphedema, Osteoarthritis, FRANCESCO)
Past Surgical History: Cardiac (PCI)
Social History
Alcohol: None
Drug: None
Personal: Single
Living: Long Term
Allergies / Home Medications
Allergy/AdvReac Type Severity Reaction Status Date / Time
acetic acid Allergy Unknown Verified 12/26/24 14:42
hydromorphone Allergy Unknown Verified 12/26/24 14:42
iodine Allergy Unknown Verified 12/26/24 14:42
morphine Allergy Unknown Verified 12/26/24 14:42
�Medication �Instructions �Recorded �Confirmed �Type
acetaminophen 325 mg tablet 650 mg PO Q6HPRN PRN mild pain 04/04/24 12/26/24 History
aspirin 81 mg tablet,delayed 81 mg PO DAILY Blood Clot 04/04/24 12/26/24 History
release Prevention/Tx
carvedilol 25 mg tablet 25 mg PO BID Blood Pressure 04/04/24 12/26/24 History
ergocalciferol (vitamin D2) 1,250 1,250 mcg PO MO Supplement 04/04/24 12/26/24 History
mcg (50,000 unit) capsule
furosemide 40 mg tablet 20 mg PO DAILY Fluid 04/04/24 12/26/24 History
Retention/Swelling
insulin aspart U-100 100 unit/mL 0 sliding scale dose SC ACHS 04/04/24 12/26/24 History
(3 mL) subcutaneous pen Diabetes
omeprazole 20 mg tablet,delayed 20 mg PO DAILY Gastrointestinal 04/04/24 12/26/24 History
release Issue
tamsulosin 0.4 mg capsule 0.4 mg PO DAILY Urinary Issue 04/04/24 12/26/24 History
zinc oxide 12 % topical cream 1 applic topical TID PERIANAL AREA 04/04/24 12/26/24 History
clopidogrel 75 mg tablet 75 mg PO DAILY #30 tabs 04/30/24 12/26/24 Rx
atorvastatin 10 mg tablet 10 mg PO HS High Cholesterol 10/22/24 12/26/24 History
bisacodyl 10 mg rectal suppository 10 mg MT DAILYPRN PRN IF NO BM MOM 10/22/24 12/26/24 History
(Dulcolax (bisacodyl))
loperamide 2 mg tablet 2 mg PO Q8HPRN PRN DIARRHEA 10/22/24 12/26/24 History
magnesium hydroxide 400 mg/5 mL 2,400 mg PO HSPRN PRN IF NO BM BY 10/22/24 12/26/24 History
oral suspension (Milk of Magnesia) 3RD DAY
miconazole nitrate 2 % topical 1 applic topical BID 10/22/24 12/26/24 History
powder (Antifungal (miconazole)) REDNESS,FOLDS,ABD FOLDS
potassium chloride 20 mEq 20 meq PO DAILY Supplement 10/22/24 12/26/24 History
tablet,extended release
sodium chloride-hypochlorous acid 1 irrig irrigation DAILY LEFT HEEL 10/22/24 12/26/24 History
0.033 % irrigation solution (Vashe)
sodium chloride-hypochlorous acid 1 irrig irrigation DAILYPRN PRN 10/22/24 12/26/24 History
0.033 % irrigation solution (Vashe) LEFT HEEL
empagliflozin 10 mg tablet 10 mg PO DAILY Diabetes 12/26/24 12/26/24 History
(Jardiance)
Review of Systems
-
History Source: Patient and Family
All other systems: Negative unless noted
Constitutional: Reports No Symptoms
EENT: Reports No Symptoms
Respiratory: Reports No Symptoms
Cardiac: Reports No Symptoms
Vascular: Denies Leg Pain / Claudication
Abdomen/GI: Reports No Symptoms
: Reports No Symptoms
Musculoskeletal: Reports Edema
Skin: Reports Other (Nonhealing wounds to bilateral lower extremities)
Neurological: Reports No Symptoms
Physical Exam
Vital Signs
Temp Pulse Resp BP Pulse Ox
97.8 F 72 18 130/82 98
12/29/24 08:05 12/29/24 08:13 12/29/24 08:05 12/29/24 08:13 12/29/24 08:05
Lab Results
12/27/24 13:11
12/27/24 13:11
Physical Exam
General: No Apparent Distress
HEENT: Normocephalic and Atraumatic
Respiratory: Non Labored Respirations
Cardiac: Negative JVD
GI: Soft and Non Tender
Musculoskeletal: No Clubbing, No Cyanosis and No Edema
Skin: Warm and Other (See wound care notes for images)
Neuro: Awake and Alert
Psych: Calm
Assessment / Plan
-
79-year-old male here with nonhealing lower extremity wounds bilaterally. Patient is known to our service recently planned for arteriogram that patient was unwell and had to cancel
Plan:
Ultrasound pending
Continue local wound care
Will follow-up with patient and family when ultrasound complete with Dr. Millan
Data Reviewed
-
Labs: Labs Reviewed by me
[2024-12-29] MEDS: DRISDOL (VITAMIN D2) 50000 UNITS PO (11:13)
--- NOTE | 2024-12-29 12:35 | WOUNDNOTE ---
R POSTERIOR LOWER LEG
--- NOTE | 2024-12-29 12:36 | WOUNDNOTE ---
L MEDIAL POSTERIOR LOWER LEG
--- NOTE | 2024-12-29 12:36 | WOUNDNOTE ---
L LATERAL LOWER LEG
--- NOTE | 2024-12-29 12:36 | WOUNDNOTE ---
L POSTERIOR DISTAL LOWER LEG
--- NOTE | 2024-12-29 12:37 | WOUNDNOTE ---
SACRUM AND BUTTOCKS
--- NOTE | 2024-12-29 12:38 | WOUNDNOTE ---
R DISTAL BUTTOCK/SACRUM
--- NOTE | 2024-12-29 12:40 | WOUNDNOTE ---
[facility] RN note: Patient admitted with colitis, ulcer of sacrum.
See H&P for complete history. Patient resides at a [facility]. Daughter Eugenia translates.
PMH: cellulitis, PAD, CHF, dementia, OR, BPH, dysphagia, HTN, lymphedema, former smoker, zinc oxide, angioplasty for PAD, leg and L heel debridement. Legs with venous ulcers, sacral pressure injury.
Wound Location and type/assessment: Patient admitted with: scattered open sores(PAD) on legs, L>R, no edema, + redness, no odor. + pulses audible with Doppler, done by vascular JOB TRAINING SPECIALIST Michael at bedside. JOB TRAINING SPECIALIST reports TBI result from arterial study this
morning, show no changes from previous study. Dr. Millan to see patient this afternoon. Heels are intact, using TruVue lite offloading heel boots. Stage 3 sacral pressure injury, clean base, undermines from 6-12 O' clock 1.5cm. R Buttock with DTI,
does not appear to be new. Patient is incontinent of stool and urine nurses reports, had small BM when turned. Buttocks with very dry flaky skin and redness, suspect from incontinence. R hand with small skin tear. MASD in skin folds, fungal powder
in use. Daughter Eugenia at bedside translated and assisted with care along with nurse Marilyn.
Appetite: Good, encouraged protein in diet.
Pressure redistribution devices in place: Accumax, switched bed to Air mattress while patient was at test. Patient's TruVue lite boots re applied. Patient cannot turn self in bed, repositioned in bed. Pressure ulcer prevention measures reviewed with
daughter and showed her sacrum and R buttock ulcers, aware can get worse. Daughter states she understands. D[facility], she will call and check.
Plan: LE dressings changed, padded heels with foam adhesives. Clear barrier cream applied to proximal sacrum where peeling red skin located. Sacral/buttock silicone border foam changed, applied Vashe moistened gauze at base of sacral wound. Will
confirm orders with Dr. Sutton and updated JOHN Parsons.
Care plan to be updated and will follow as needed.
Note to case management of equipment requested for discharge: Air mattress at SNF if not already in place.
Recommend follow up with Dr. Millan.
--- NOTE | 2024-12-29 14:40 | W.PN.ID1 ---
Date of Service
Date of Service: December 29, 2024
Today's Communication
Continue antibiotics.
Assessment / Plan
Bilateral lower extremity wounds with suspected superinfection
Suspected cutaneous candidiasis of the sacral and perineal area
Leukocytosis; improved
DM2
HTN
HLD
PAD
BLE lymphedema
Chronic BLE wounds follows at [facility]
CAD s/p stent
CHF
FRANCESCO
BPH
Recommendations:
Continue with local care to the lower extremities.
Continue with Zosyn for today.
Topical Desenex powder to the perineal and sacral area for suspected cutaneous candidiasis.
Frequent offloading of the sacral area.
Follow white count and temperature curve.
Follow for clinical improvement.
����������������������������������������������������������
Chief Complaint
-: Cellulitis and Other (Cutaneous candidiasis)
Subjective / Review of Systems
Review of Systems: No Fever and No Chills
Vital Signs / Physical Exam
Vital Signs
Vital Signs
Temp Pulse Resp BP Pulse Ox
97.8 F 72 18 130/82 98
12/29/24 08:05 12/29/24 08:13 12/29/24 08:05 12/29/24 08:13 12/29/24 08:05
Physical Exam
Constitutional: Chronically Ill and Non-toxic
Pulmonary: Non Labored
Gastrointestinal: Non Tender and Non Distended
Extremities: Edema
Wound: Other (Bilateral leg wounds dressed. Photos reviewed in chart.)
Psychological: Calm
Objective Data
Lab Data
Lab Results
12/27/24 13:11
12/27/24 13:11
Estimated Creat Clear 103 ml/min 12/27/24 13:11
Lactic Acid 2.4 mmol/L (0.7-2.0) H 12/26/24 23:18
Total Bilirubin 0.4 mg/dl (0.2-1.3) 12/26/24 16:34
AST 14 U/L (17-59) L 12/26/24 16:34
ALT < 10 U/L (0-50) 12/26/24 16:34
Alkaline Phosphatase 83 U/L (38-126) 12/26/24 16:34
Most recent labs reviewed.
Micro Results:
12/26/24 15:19 Blood Culture - Preliminary
Blood/Venous No Growth in 48 hours- Final report to follow
[2024-12-29 15:39] VITALS: BP 140/63
--- NOTE | 2024-12-29 15:45 | W.PN.HOSP.TC ---
Today's Communication/Plan
-
Antibiotics per
Wound care per
Angioplasty to the left lower extremity tentatively on 01/01
Assessment / Plan
Assessment / Plan
1. Chronic lower extremity wounds with infection/cellulitis
Sacral decubitus wounds
-Patient has history of peripheral arterial disease and revascularization
-Have lower extremity wound for which patient is getting wound care at [facility]
-Able to examine lower extremity wound with help of family as patient was cooperative after daughter present in the room. Left leg wounds were raw, some purulent drainage.
-ID evaluated and patient to be maintained on Zosyn for time being
-Heel offloading shoes has been ordered
- Vascular surgery input appreciated. ROBIN reviewed. Plan is for angioplasty to the left lower extremity tentatively on 01/01
2. Acute toxic metabolic encephalopathy - improved
History of dementia
- Discussed with [facility] staff who stated that patient have episodes of confusion on and off mainly during the morning
- At time patient is apprehensive to care due to unfamiliar faces
- Patient not septic, continue monitoring
- UA is clear.
- Tylenol for pain control, patient had history of worsening confusion with narcotics.
- Risperidal PRN was ordered as patient was agitated, after daughter talked to patient, somewhat co-operative.
3. PVD/PAD
s/p extensive bilateral revascularization procedures in 2023
- continue aspirin, atorvastatin and clopidogrel
4. Type 2 DM
- AccuCheck AC & HS
- maintain on ISS
- continue Jardiance
Essentia Hypertension - continue carvedilol
Hyperlipidemia - continue aspirin and atorvastatin
Chronic diastolic HF - no signs of exacerbation. maintain on home dose coreg/lasix
GERD - continue omeprazole
BPH - continue tamsulosin
FRANCESCO - continue CPAP
Code status: full code
DVT prophylaxis: lovenox sq
Anticipated Discharge: > 48 hours
Subjective/Interval History
-
Date of Service: December 29, 2024
Objective Data
-
Vital Signs:
Vital Signs
Temp Pulse Resp BP Pulse Ox
98.5 F 66 18 140/63 97
12/29/24 15:39 12/29/24 15:39 12/29/24 15:39 12/29/24 15:39 12/29/24 15:39
I&O
12/28/24 12/29/24 12/30/24
06:59 06:59 06:59
Intake Total 820 / 820 816 / 816
Balance 820 / 820 816 / 816
Physical Exam
-
General: Well Developed and No Apparent Distress
HEENT: Normocephalic, Atraumatic and Moist Mucous Membranes
Respiratory: Clear to Auscultation
Cardiac: Regular Rhythm and S1/S2; Negative Murmur, Rub or Gallop
GI: Soft, Nontender, Nondistended and Normal Bowel Sounds; Negative Organomegaly
Rectal: Deferred by Provider
Musculoskeletal: No Clubbing, No Cyanosis and No Edema
Skin: Negative Rash
Neuro: Nonfocal/Grossly Intact
--- NOTE | 2024-12-29 16:08 | PN.CDI ---
CDI
- -
CDI:
Physician Documentation Request
Admit Date: 12/28/24 09:35
Dear Doctor,
Please review the following and provide your response in the progress notes.
Clinical Indicators:
Pt admitted for chronic lower extremity wounds/ sacral decubitus wounds;
12/27 Registered Dietitian : ' Consult weight loss & review per wound report....
CBW (12/27) 171lb 5oz BMI 25.3 overwt/ht, (12/26) 170lb
Weight hx- (11/04) 194lb 12.8oz, (10/30) 196lb, (10/22) 192lb
Significant 21lb, 12.3% weight loss over the past 3 months.
Pt meets criteria for severe protein calorie malnutrition of chronic illness with >7.5% in 3 months, prolonged inadequate intake <75% for > 1 month....'
Based on the above information and your assessment, which of the following most accurately represents the patient's nutritional status?
Severe Protein Calorie Malnutrition
Other
Rebuck Criteria (ACP Hospitalist 2017)
2 or more criteria must be present for either
non severe or severe malnutrition
Note that the criteria differs related to the
presence of an acute or chronic illness
Chronic Illness
Energy Intake Non Severe: <75% for >1 month
Severe: <75% for >1 month
Weight Loss Non Severe: 5% over 1 month
7.5% over 3 months
10% over 6 months
20% over 1 year
Severe: >5% over 1 month
>7.5% over 3 months
>10% over 6 months
>20% over 1 year
Body Fat Non Severe: Mild Loss
Severe: Severe Loss
Muscle Mass Non Severe: Mild Loss
Severe: Severe Loss
Additional criteria that can be used to Determine if Mild or Moderate Malnutrition (Merck Manual 2018)
Use of terms such as suspected, likely, concern for, or probable (associated with a specific diagnosis that is being evaluated, monitored, or treated as if it exists) are acceptable and can be coded in the inpatient setting, when documented at the
time of discharge.
Thank you,
Brandi Donovan RN, BSN
CDI Specialist
[place] [facility]
Please use your independent medical judgment in providing your response.
--- NOTE | 2024-12-29 16:32 | PN.CDI ---
CDI
- -
CDI:
Physician Documentation Request
Admit Date: 12/28/24 09:35
Dear Doctor,
Please review the following and provide your response in the progress notes.
Clinical Indicators:
Pt admitted with Chronic lower extremity wounds with infection/cellulitis and Sacral decubitus wounds.
Laboratory Tests
12/26/24 12/27/24
16:34 13:11
Glucose 228 H 192 H
Hemoglobin A1c 7.5 H
Please clarify the relationship between these conditions:
Yes, cellulitis is related to/associated with/due to Type 2 DM.
No, cellulitis is not related to/associated with/due to Type 2 DM.
Other
Use of terms such as suspected, likely, concern for, or probable (associated with a specific diagnosis that is being evaluated, monitored, or treated as if it exists) are acceptable and can be coded in the inpatient setting, when documented at the
time of discharge.
Thank you,
Brandi Donovan RN, BSN
CDI Specialist
[place] Text
Please use your independent medical judgment in providing your response.
[2024-12-29] MEDS: LOVENOX 40 MG SC (16:44)
[2024-12-29 16:57] LABS: Glucose - Point of Care 209 mg/dl (70-99)
[2024-12-29] MEDS: LIPITOR 10 MG PO (20:34)
[2024-12-29] MEDS: DESENEX/MITRAZOL/ZEASORB TOPICAL (20:49)
[2024-12-29 23:04] LABS: Glucose - Point of Care 153 mg/dl (70-99)
[2024-12-29 23:06] VITALS: BP 126/54
[2024-12-30] MEDS: ZOSYN 50 IV ×4 (04:13→21:47)
[2024-12-30 06:00] VITALS: BMI 26.5
[2024-12-30 08:21] VITALS: BP 139/57
[2024-12-30] MEDS: NOVOLOG FLEXPEN-HIGH RESISTANCE SC ×3 (08:27→16:51)
[2024-12-30] MEDS: FLOMAX 0.4 MG PO (08:42)
[2024-12-30] MEDS: LASIX 20 MG PO (08:42)
[2024-12-30] MEDS: PLAVIX 75 MG PO (08:42)
[2024-12-30] MEDS: TRIPLE PASTE 1 APPLIC TOPICAL ×3 (08:43→21:47)
[2024-12-30] MEDS: COREG 25 MG PO ×2 (08:43→20:26)
[2024-12-30] MEDS: FARXIGA 10 MG PO (08:43)
[2024-12-30] MEDS: PROTONIX 40 MG PO (08:43)
[2024-12-30] MEDS: KCL 20 MEQ PO (08:43)
[2024-12-30] MEDS: ASPIR LOW (ENTERIC COATED) 81 MG PO (08:43)
[2024-12-30] MEDS: DESENEX/MITRAZOL/ZEASORB 1 APPLIC TOPICAL ×2 (08:44→20:26)
--- NOTE | 2024-12-30 13:55 | W.PN.ID1 ---
Date of Service
Date of Service: December 30, 2024
Today's Communication
Continue Zosyn.
Assessment / Plan
Bilateral lower extremity wounds with suspected superinfection
Suspected cutaneous candidiasis of the sacral and perineal area
Leukocytosis; improved
DM2
HTN
HLD
PAD
BLE lymphedema
Chronic BLE wounds follows at [facility]
CAD s/p stent
CHF
FRANCESCO
BPH
Recommendations:
Continue with local care to the lower extremities.
Continue with Zosyn for today.
Topical Desenex powder to the perineal and sacral area for suspected cutaneous candidiasis.
Frequent offloading of the sacral area.
Follow white count and temperature curve.
Await tentative left lower extremity angioplasty (for 01/02/24)
����������������������������������������������������������
Chief Complaint
-: Cellulitis and Other (Cutaneous candidiasis)
Subjective / Review of Systems
Review of Systems: No Fever and No Chills
Vital Signs / Physical Exam
Vital Signs
Vital Signs
Temp Pulse Resp BP Pulse Ox
98.2 F 64 18 139/57 98
12/30/24 08:21 12/30/24 08:42 12/30/24 08:21 12/30/24 08:42 12/30/24 08:21
Physical Exam
Constitutional: Chronically Ill and Non-toxic
Cardiovascular: S1/S2; Negative S3/S4
Pulmonary: Clear and Non Labored
Gastrointestinal: Soft, Non Tender and Non Distended
Extremities: Edema
Wound: Other (Bilateral leg wounds dressed. No strikethrough. No malodor.)
Neurological: Awake
Psychological: Calm
Objective Data
Lab Data
Lab Results
12/27/24 13:11
12/27/24 13:11
Estimated Creat Clear 103 ml/min 12/27/24 13:11
Lactic Acid 2.4 mmol/L (0.7-2.0) H 12/26/24 23:18
Total Bilirubin 0.4 mg/dl (0.2-1.3) 12/26/24 16:34
AST 14 U/L (17-59) L 12/26/24 16:34
ALT < 10 U/L (0-50) 12/26/24 16:34
Alkaline Phosphatase 83 U/L (38-126) 12/26/24 16:34
Most recent labs reviewed.
Micro Results:
12/26/24 15:19 Blood Culture - Preliminary
Blood/Venous No Growth in 72 hours- Final report to follow
--- NOTE | 2024-12-30 14:05 | CM ---
IV/Bree. LLE Angioplasty tentatively scheduled for 01/01/25. Discharge POC: Return to [facility] for resumption of LTC services.
--- NOTE | 2024-12-30 15:02 | W.PN.HOSP.TC ---
Today's Communication/Plan
-
Continue antibiotics and wound care
Contemplating vascular intervention over this admission versus outpatient follow-up
Assessment / Plan
Assessment / Plan
1. Chronic lower extremity wounds with infection/cellulitis
Sacral decubitus wounds
-Patient has history of peripheral arterial disease and revascularization
-Have lower extremity wound for which patient is getting wound care at [facility]
-Able to examine lower extremity wound with help of family as patient was cooperative after daughter present in the room. Left leg wounds were raw, some purulent drainage.
-ID evaluated and patient to be maintained on Zosyn for time being
-Heel offloading shoes has been ordered
- Vascular surgery input appreciated. ROBIN reviewed. Plan is for angioplasty to the left lower extremity tentatively on 01/01
2. Acute toxic metabolic encephalopathy - improved
History of dementia
- Discussed with [facility] staff who stated that patient have episodes of confusion on and off mainly during the morning
- At time patient is apprehensive to care due to unfamiliar faces
- Patient not septic, continue monitoring
- UA is clear.
- Tylenol for pain control, patient had history of worsening confusion with narcotics.
- Risperidal PRN was ordered as patient was agitated, after daughter talked to patient, somewhat co-operative.
3. PVD/PAD
s/p extensive bilateral revascularization procedures in 2023
- continue aspirin, atorvastatin and clopidogrel
4. Type 2 DM
- AccuCheck AC & HS
- maintain on ISS
- continue Jardiance
Essentia Hypertension - continue carvedilol
Hyperlipidemia - continue aspirin and atorvastatin
Chronic diastolic HF - no signs of exacerbation. maintain on home dose coreg/lasix
GERD - continue omeprazole
BPH - continue tamsulosin
FRANCESCO - continue CPAP
Code status: full code
DVT prophylaxis: lovenox sq
Anticipated Discharge: 24 - 48 hours
Subjective/Interval History
-
Date of Service: December 30, 2024
Objective Data
-
Vital Signs:
Vital Signs
Temp Pulse Resp BP Pulse Ox
98.2 F 64 18 139/57 98
12/30/24 08:21 12/30/24 08:42 12/30/24 08:21 12/30/24 08:42 12/30/24 08:21
I&O
12/29/24 12/30/24 12/31/24
06:59 06:59 06:59
Intake Total 816 / 816 768 / 768
Balance 816 / 816 768 / 768
Physical Exam
-
General: Well Developed and No Apparent Distress
HEENT: Normocephalic, Atraumatic and Moist Mucous Membranes
Respiratory: Clear to Auscultation
Cardiac: Regular Rhythm and S1/S2; Negative Murmur, Rub or Gallop
GI: Soft, Nontender, Nondistended and Normal Bowel Sounds; Negative Organomegaly
Rectal: Deferred by Provider
Musculoskeletal: No Clubbing, No Cyanosis and No Edema
Skin: Negative Rash
Neuro: Nonfocal/Grossly Intact
[2024-12-30 16:08] VITALS: BP 120/45
[2024-12-30] MEDS: LOVENOX SC (16:51)
[2024-12-30] MEDS: LIPITOR 10 MG PO (20:26)
[2024-12-30 22:06] LABS: Glucose - Point of Care 208 mg/dl (70-99)
[2024-12-30 23:06] VITALS: BP 135/56
[2024-12-31] MEDS: ZOSYN 50 IV ×2 (03:00→09:07)
[2024-12-31 06:00] VITALS: BMI 26.2
[2024-12-31 07:00] VITALS: BP 141/56
[2024-12-31] MEDS: FLOMAX 0.4 MG PO (08:12)
[2024-12-31] MEDS: COREG 25 MG PO ×2 (08:12→21:43)
[2024-12-31] MEDS: FARXIGA 10 MG PO (08:12)
[2024-12-31] MEDS: PLAVIX 75 MG PO (08:12)
[2024-12-31] MEDS: ASPIR LOW (ENTERIC COATED) 81 MG PO (08:12)
[2024-12-31] MEDS: KCL 20 MEQ PO (08:12)
[2024-12-31] MEDS: PROTONIX 40 MG PO (08:12)
[2024-12-31 08:14] LABS: Glucose - Point of Care 134 mg/dl (70-99)
[2024-12-31] MEDS: NOVOLOG FLEXPEN-HIGH RESISTANCE 1 UNITS SC (08:14)
[2024-12-31] MEDS: LASIX 20 MG PO (08:15)
[2024-12-31] MEDS: TRIPLE PASTE 1 APPLIC TOPICAL ×3 (08:17→21:43)
[2024-12-31] MEDS: DESENEX/MITRAZOL/ZEASORB 1 APPLIC TOPICAL ×2 (08:17→21:43)
[2024-12-31 09:25] LABS: Hematocrit 36.5 % (39.0-52.0); Hemoglobin 12.0 g/dL (13.0-18.0); Mean Corp Hgb Conc. 32.9 g/dL (33.0-37.0); Mean Corpuscular Volume 84.9 fL (80.0-94.0); Nucleated Red Blood Cells % 0 % (-); Platelet Count 392 10^3/uL (130-400); Red Cell Dist. Width 15.5 % (11.5-14.5)
[2024-12-31 09:50] LABS: Blood Urea Nitrogen 14 mg/dl (9-20); Calcium 9.5 mg/dl (8.4-10.2); Carbon Dioxide 20 mmol/L (22-30); Chloride 102 mmol/L (98-107); Estimated Creatinine Clearance 88 ml/min; Glucose 160 mg/dl (70-99); Potassium 4.4 mmol/L (3.5-5.1); Sodium 132 mmol/L (135-145); eGFR > 60.00
--- NOTE | 2024-12-31 10:49 | W.PN.ID1 ---
Date of Service
Date of Service: December 31, 2024
Today's Communication
Discontinue Zosyn. Continue with local care to the lower extremity wounds.
Assessment / Plan
Bilateral lower extremity wounds with suspected superinfection
Suspected cutaneous candidiasis of the sacral and perineal area
Leukocytosis; improved
DM2
HTN
HLD
PAD
BLE lymphedema
Chronic BLE wounds follows at [facility]
CAD s/p stent
CHF
FRANCESCO
BPH
Recommendations:
Continue with local care to the lower extremities.
No evidence for ongoing infection. Discontinue further Zosyn.
No plan for angiography at this time.
Continue topical Desenex powder to the perineal and sacral area for suspected cutaneous candidiasis.
Frequent offloading of the sacral area.
����������������������������������������������������������
Chief Complaint
-: Cellulitis and Other (Cutaneous candidiasis)
Subjective / Review of Systems
Review of Systems: No Fever and No Chills
Vital Signs / Physical Exam
Vital Signs
Vital Signs
Temp Pulse Resp BP Pulse Ox
98.1 F 61 18 141/56 99
12/31/24 07:00 12/31/24 08:12 12/31/24 07:00 12/31/24 08:12 12/31/24 07:00
Physical Exam
Constitutional: Chronically Ill and Non-toxic
Cardiovascular: S1/S2; Negative S3/S4
Pulmonary: Clear and Non Labored
Gastrointestinal: Soft, Non Tender and Non Distended
Extremities: Edema
Wound: Other (Bilateral leg wounds dressed. No strikethrough. No malodor.)
Neurological: Awake
Psychological: Calm
Objective Data
Lab Data
Lab Results
12/31/24 09:10
12/31/24 09:10
Estimated Creat Clear 88 ml/min 12/31/24 09:10
Lactic Acid 2.4 mmol/L (0.7-2.0) H 12/26/24 23:18
Total Bilirubin 0.4 mg/dl (0.2-1.3) 12/26/24 16:34
AST 14 U/L (17-59) L 12/26/24 16:34
ALT < 10 U/L (0-50) 12/26/24 16:34
Alkaline Phosphatase 83 U/L (38-126) 12/26/24 16:34
Most recent labs reviewed.
Micro Results:
12/26/24 15:19 Blood Culture - Preliminary
Blood/Venous No Growth in 4 days- Final report to follow
Care Review
Plan reviewed with: Physician (Hospitalist)
[2024-12-31 12:04] LABS: Glucose - Point of Care 179 mg/dl (70-99)
--- NOTE | 2024-12-31 12:25 | W.DS.TRANS ---
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
-
Discharge Instructions:
Discharge Diagnosis/Procedures Chronic LE wounds
PAD
IDDM
Chronic CHF
Ambulatory dysfunction
Diet Diabetic, Carb Controlled
Instructions:
Stand-Alone Forms:
Changes to Home Medications: No
Discharge Medications:
DC Medications w/original date entered in [employer]
acetaminophen 325 mg tablet 650 mg PO Q6HPRN PRN mild pain 04/04/24
aspirin 81 mg tablet,delayed release 81 mg PO DAILY Blood Clot Prevention/Tx 04/04/24
carvedilol 25 mg tablet 25 mg PO BID Blood Pressure 04/04/24
ergocalciferol (vitamin D2) 1,250 mcg (50,000 unit) capsule 1,250 mcg PO MO Supplement 04/04/24
furosemide 40 mg tablet 20 mg PO DAILY Fluid Retention/Swelling 04/04/24
insulin aspart U-100 100 unit/mL (3 mL) subcutaneous pen 0 sliding scale dose SC ACHS Diabetes 04/04/24
omeprazole 20 mg tablet,delayed release 20 mg PO DAILY Gastrointestinal Issue 04/04/24
tamsulosin 0.4 mg capsule 0.4 mg PO DAILY Urinary Issue 04/04/24
zinc oxide 12 % topical cream 1 applic topical TID PERIANAL AREA 04/04/24
clopidogrel 75 mg tablet 75 mg PO DAILY #30 tabs 04/30/24
atorvastatin 10 mg tablet 10 mg PO HS High Cholesterol 10/22/24
bisacodyl 10 mg rectal suppository (Dulcolax (bisacodyl)) 10 mg [place] DAILYPRN PRN IF NO BM MOM 10/22/24
loperamide 2 mg tablet 2 mg PO Q8HPRN PRN DIARRHEA 10/22/24
magnesium hydroxide 400 mg/5 mL oral suspension (Milk of Magnesia) 2,400 mg PO HSPRN PRN IF NO BM BY 3RD DAY 10/22/24
miconazole nitrate 2 % topical powder (Antifungal (miconazole)) 1 applic topical BID REDNESS,FOLDS,ABD FOLDS 10/22/24
potassium chloride 20 mEq tablet,extended release 20 meq PO DAILY Supplement 10/22/24
sodium chloride-hypochlorous acid 0.033 % irrigation solution (Vashe) 1 irrig irrigation DAILY LEFT HEEL 10/22/24
sodium chloride-hypochlorous acid 0.033 % irrigation solution (Vashe) 1 irrig irrigation DAILYPRN PRN LEFT HEEL 10/22/24
empagliflozin 10 mg tablet (Jardiance) 10 mg PO DAILY Diabetes 12/26/24
Home Medication Changes
Pending Results: No
[2024-12-31] MEDS: NOVOLOG FLEXPEN-HIGH RESISTANCE 2 UNITS SC ×2 (13:11→17:50)
[2024-12-31 15:00] VITALS: BP 155/74
--- NOTE | 2024-12-31 15:28 | W.PN.HOSP.TC ---
Today's Communication/Plan
-
Wound inspection, further discussion with vascular surgery and infectious services, there is no evidence of infection and no clinical indication for urgent intervention. Plan is to observe off antibiotics (Zosyn has been stopped on 12/31) continue
wound care and follow-up with vascular surgery as outpatient.
Assessment / Plan
Assessment / Plan
1. Chronic lower extremity wounds with infection/cellulitis
Sacral decubitus wounds
-Patient has history of peripheral arterial disease and revascularization
-Have lower extremity wound for which patient is getting wound care at [facility]
-Able to examine lower extremity wound with help of family as patient was cooperative after daughter present in the room. Left leg wounds were raw, some purulent drainage.
-ID evaluated and patient to be maintained on Zosyn for time being
-Heel offloading shoes has been ordered
- With wound inspection, further discussion with vascular surgery and infectious services, there is no evidence of infection and no clinical indication for urgent intervention. Plan is to observe off antibiotics (Zosyn has been stopped on 12/31)
continue wound care and follow-up with vascular surgery as outpatient.
2. Acute toxic metabolic encephalopathy - improved
History of dementia
- Discussed with [facility] staff who stated that patient have episodes of confusion on and off mainly during the morning
- At time patient is apprehensive to care due to unfamiliar faces
- Patient not septic, continue monitoring
- UA is clear.
- Tylenol for pain control, patient had history of worsening confusion with narcotics.
- Risperidal PRN was ordered as patient was agitated, after daughter talked to patient, somewhat co-operative.
3. PVD/PAD
s/p extensive bilateral revascularization procedures in 2023
- continue aspirin, atorvastatin and clopidogrel
4. Type 2 DM
- AccuCheck AC & HS
- maintain on ISS
- continue Jardiance
Essentia Hypertension - continue carvedilol
Hyperlipidemia - continue aspirin and atorvastatin
Chronic diastolic HF - no signs of exacerbation. maintain on home dose coreg/lasix
GERD - continue omeprazole
BPH - continue tamsulosin
FRANCESCO - continue CPAP
Code status: full code
DVT prophylaxis: lovenox sq
Anticipated Discharge: Within 24 hours
Subjective/Interval History
-
Date of Service: December 31, 2024
Objective Data
-
Labs:
Laboratory Results
12/31/24
09:10
WBC 8.4
Hgb 12.0 L
Hct 36.5 L
Plt Count 392
Sodium 132 L
Potassium 4.4
Chloride 102
Carbon Dioxide 20 L
BUN 14
Creatinine 0.7
Glucose 160 H
Calcium 9.5
Vital Signs:
Vital Signs
Temp Pulse Resp BP Pulse Ox
98.1 F 61 18 141/56 99
12/31/24 07:00 12/31/24 08:12 12/31/24 07:00 12/31/24 08:12 12/31/24 07:00
I&O
12/30/24 12/31/24 01/01/25
06:59 06:59 06:59
Intake Total 768 / 768
Balance 768 / 768
Physical Exam
-
General: Well Developed and No Apparent Distress
HEENT: Normocephalic, Atraumatic and Moist Mucous Membranes
Respiratory: Clear to Auscultation
Cardiac: Regular Rhythm and S1/S2; Negative Murmur, Rub or Gallop
GI: Soft, Nontender, Nondistended and Normal Bowel Sounds; Negative Organomegaly
Rectal: Deferred by Provider
Musculoskeletal: No Clubbing, No Cyanosis and No Edema
Skin: Negative Rash
Neuro: Nonfocal/Grossly Intact
[2024-12-31 17:44] LABS: Glucose - Point of Care 198 mg/dl (70-99)
[2024-12-31] MEDS: LOVENOX 40 MG SC (17:51)
[2024-12-31 21:37] LABS: Glucose - Point of Care 229 mg/dl (70-99)
[2024-12-31] MEDS: LIPITOR 10 MG PO (21:43)
[2024-12-31 22:30] VITALS: BP 119/47
[2025-01-01 05:30] VITALS: BMI 25.5
[2025-01-01 07:10] VITALS: BP 133/53
[2025-01-01 07:20] LABS: Glucose - Point of Care 145 mg/dl (70-99)
[2025-01-01] MEDS: NOVOLOG FLEXPEN-HIGH RESISTANCE 1 UNITS SC (08:36)
--- NOTE | 2025-01-01 08:36 | PN.CDI ---
CDI
- -
CDI:
Physician Documentation Request
Admit Date: 12/28/24 09:35
Dear Doctor,
Please review the following and provide your response in the progress notes.
Clinical Indicators:
Pt admitted for Chronic lower extremity wounds with infection/cellulitis, PVD/PAD and Acute toxic metabolic encephalopathy
Laboratory Tests
12/26/24 12/27/24 12/31/24
16:34 13:11 09:10
Sodium 130 L 133 L 132 L
Based on the above, could you clarify in the progress notes, the appropriate diagnosis, if significant, that supports the above abnormalities and additional evaluation, monitoring and/or treatment rendered:
Hyponatremia
Insignificant abnormal lab values
Other
Use of terms such as suspected, likely, concern for, or probable (associated with a specific diagnosis that is being evaluated, monitored, or treated as if it exists) are acceptable and can be coded in the inpatient setting, when documented at the
time of discharge.
Thank you,
Brandi Donovan RN, BSN
CDI Specialist
[place] Text
Please use your independent medical judgment in providing your response.
[2025-01-01] MEDS: PLAVIX 75 MG PO (08:37)
[2025-01-01] MEDS: ASPIR LOW (ENTERIC COATED) 81 MG PO (08:37)
[2025-01-01] MEDS: PROTONIX 40 MG PO (08:37)
[2025-01-01] MEDS: FARXIGA 10 MG PO (08:37)
[2025-01-01] MEDS: KCL 20 MEQ PO (08:38)
[2025-01-01] MEDS: COREG 25 MG PO (08:38)
[2025-01-01] MEDS: LASIX 20 MG PO (08:39)
[2025-01-01] MEDS: TRIPLE PASTE 1 APPLIC TOPICAL (08:40)
[2025-01-01] MEDS: FLOMAX 0.4 MG PO (08:40)
[2025-01-01] MEDS: DESENEX/MITRAZOL/ZEASORB 1 APPLIC TOPICAL (08:41)
[2025-01-01 10:38] LABS: Glucose - Point of Care 207 mg/dl (70-99)
--- NOTE | 2025-01-01 11:43 | CM ---
Patient for transport back to [facility] Today.
Almita from [place] updated and verified LTC, [facility] updated, referral sent.
Patient will need ambulance transport.
Please update facility and daughter with times, preferably before 3 pm.
Plan: [facility] today
[facility]
Report# [phone]
--- NOTE | 2025-01-01 11:52 | W.DS.TRANS ---
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
-
Discharge Instructions:
Discharge Diagnosis/Procedures Chronic LE wounds
PAD
IDDM
Chronic CHF
Ambulatory dysfunction
Diet Diabetic, Carb Controlled
Instructions:
Stand-Alone Forms:
Changes to Home Medications: No
Discharge Medications:
DC Medications w/original date entered in [employer]
acetaminophen 325 mg tablet 650 mg PO Q6HPRN PRN mild pain 04/04/24
aspirin 81 mg tablet,delayed release 81 mg PO DAILY Blood Clot Prevention/Tx 04/04/24
carvedilol 25 mg tablet 25 mg PO BID Blood Pressure 04/04/24
ergocalciferol (vitamin D2) 1,250 mcg (50,000 unit) capsule 1,250 mcg PO MO Supplement 04/04/24
furosemide 40 mg tablet 20 mg PO DAILY Fluid Retention/Swelling 04/04/24
insulin aspart U-100 100 unit/mL (3 mL) subcutaneous pen 0 sliding scale dose SC ACHS Diabetes 04/04/24
omeprazole 20 mg tablet,delayed release 20 mg PO DAILY Gastrointestinal Issue 04/04/24
tamsulosin 0.4 mg capsule 0.4 mg PO DAILY Urinary Issue 04/04/24
zinc oxide 12 % topical cream 1 applic topical TID PERIANAL AREA 04/04/24
clopidogrel 75 mg tablet 75 mg PO DAILY #30 tabs 04/30/24
atorvastatin 10 mg tablet 10 mg PO HS High Cholesterol 10/22/24
bisacodyl 10 mg rectal suppository (Dulcolax (bisacodyl)) 10 mg [place] DAILYPRN PRN IF NO BM MOM 10/22/24
loperamide 2 mg tablet 2 mg PO Q8HPRN PRN DIARRHEA 10/22/24
magnesium hydroxide 400 mg/5 mL oral suspension (Milk of Magnesia) 2,400 mg PO HSPRN PRN IF NO BM BY 3RD DAY 10/22/24
miconazole nitrate 2 % topical powder (Antifungal (miconazole)) 1 applic topical BID REDNESS,FOLDS,ABD FOLDS 10/22/24
potassium chloride 20 mEq tablet,extended release 20 meq PO DAILY Supplement 10/22/24
sodium chloride-hypochlorous acid 0.033 % irrigation solution (Vashe) 1 irrig irrigation DAILY LEFT HEEL 10/22/24
sodium chloride-hypochlorous acid 0.033 % irrigation solution (Vashe) 1 irrig irrigation DAILYPRN PRN LEFT HEEL 10/22/24
empagliflozin 10 mg tablet (Jardiance) 10 mg PO DAILY Diabetes 12/26/24
Home Medication Changes
Pending Results: No
[2025-01-01] MEDS: NOVOLOG FLEXPEN-HIGH RESISTANCE 4 UNITS SC (13:58)
[2025-01-01 14:00] VITALS: BP 126/60
== END 2025-01-01 15:00 | DRG 299 ==
LOC: 4 WEST ACU 09:35
PROVIDERS: Hospitalist; Nurse Practitioner Family; ADMITTING PHYSICIAN Hospitalist; ATTENDING PHYSICIAN Internal Medicine; CONSULT PHYSICIAN Internal Medicine Infectious Disease; CONSULT PHYSICIAN Surgery Vascular Surgery; EMERGENCY PHYSICIAN Student in an Organized Health Care Education/Training Program; FAMILY PHYSICIAN Internal Medicine
DX: E11.51 Type 2 diabetes mellitus with diabetic peripheral angiopathy without gangrene (principal); G92.8 Other toxic encephalopathy; E46 Unspecified protein-calorie malnutrition; L03.116 Cellulitis of left lower limb; L03.115 Cellulitis of right lower limb; I50.32 Chronic diastolic (congestive) heart failure; R64 Cachexia; I13.0 Hypertensive heart and chronic kidney disease with heart failure and stage 1 through stage 4 chronic kidney disease, or unspecified chronic kidney disease; E87.1 Hypo-osmolality and hyponatremia; I70.263 Atherosclerosis of native arteries of extremities with gangrene, bilateral legs; L97.929 Non-pressure chronic ulcer of unspecified part of left lower leg with unspecified severity; L97.919 Non-pressure chronic ulcer of unspecified part of right lower leg with unspecified severity; L89.159 Pressure ulcer of sacral region, unspecified stage; F03.A0 Unspecified dementia, mild, without behavioral disturbance, psychotic disturbance, mood disturbance, and anxiety; E11.22 Type 2 diabetes mellitus with diabetic chronic kidney disease; Z68.25 Body mass index [BMI] 25.0-25.9, adult; D63.1 Anemia in chronic kidney disease; E78.00 Pure hypercholesterolemia, unspecified; K21.9 Gastro-esophageal reflux disease without esophagitis; N40.0 Benign prostatic hyperplasia without lower urinary tract symptoms; G47.33 Obstructive sleep apnea (adult) (pediatric); N18.9 Chronic kidney disease, unspecified; M19.90 Unspecified osteoarthritis, unspecified site; Z87.891 Personal history of nicotine dependence; Z88.5 Allergy status to narcotic agent; Z91.041 Radiographic dye allergy status; Z79.82 Long term (current) use of aspirin; Z79.02 Long term (current) use of antithrombotics/antiplatelets; Z79.899 Other long term (current) drug therapy; Z95.5 Presence of coronary angioplasty implant and graft; Z79.84 Long term (current) use of oral hypoglycemic drugs; I25.10 Atherosclerotic heart disease of native coronary artery without angina pectoris
CPT/HCPCS: 80048; 80053; 81003; 82962; 83036; 83605; 85025; 85027; 87040; 93922; 93925; 96361; 96365; 96366; 96367; 99284; 99406

== ENCOUNTER 2025-01-14 14:50 | Inpatient (IN) | payer MEDICARE, OTHER, SELFPAY ==
[2025-01-14] VITALS (9 sets, daily range): BP systolic 116–149; BP diastolic 53–86; BMI 28.0
[2025-01-14 11:39] LABS: Hematocrit 37.0 % (39.0-52.0); Hemoglobin 12.0 g/dL (13.0-18.0); Mean Corp Hgb Conc. 32.4 g/dL (33.0-37.0); Mean Corpuscular Volume 85.8 fL (80.0-94.0); Nucleated Red Blood Cells % 0 % (-); Platelet Count 457 10^3/uL (130-400); Red Cell Dist. Width 15.7 % (11.5-14.5)
[2025-01-14 11:52] LABS: APTT 34.3 Sec (23.4-35.0); AST (SGOT) 18 U/L (17-59); Albumin 3.9 g/dl (3.5-5.0); Alkaline Phosphatase 79 U/L (38-126); Blood Urea Nitrogen 25 mg/dl (9-20); Calcium 9.9 mg/dl (8.4-10.2); Carbon Dioxide 27 mmol/L (22-30); Chloride 100 mmol/L (98-107); Glucose 282 mg/dl (70-99); INR 1.03; PT 14.0 Sec (11.4-14.6); Potassium 4.1 mmol/L (3.5-5.1); Sodium 135 mmol/L (135-145); Total Protein 7.4 g/dl (6.3-8.2); eGFR > 60.00
[2025-01-14 11:57] LABS: Urine Character Clear (Clear)
[2025-01-14 12:03] LABS: Troponin I < 0.012 ng/ml
[2025-01-14 12:09] LABS: Urine Red Blood Cell 0-2 /HPF (0-2); Urine White Cell 0-2 /HPF (0-5)
--- NOTE | 2025-01-14 12:41 | ED.GENMED ---
History of Present Illness
General
Chief Complaint: Weakness
Source: records and ambulance crew
Exam Limitations: altered mental status
Time Seen by Provider: 01/14/25 12:32
Nursing documentation reviewed up to this point in time: agreed with
History of Present Illness
History of Present Illness:
79-year-old male presents Emergency Department due to weakness, fever ongoing for the past 1 to 2 days. He was sent in by EMS. He has had some confusion.
Past History
Past History
ED Past Medical History: CAD, CHF, HTN, Hypercholesterolemia and Other (Peripheral vascular disease. Chronic lymphedema. Prostatic hypertrophy)
Social History
Tobacco: Non-smoker
Alcohol: None
Drug: None
Living: skilled nursing
Employment: Retired
Review of Systems
Review of Systems
Allergies reviewed?: Yes
All Other Systems: Not applicable
Constitutional: Reports fever and fatigue
EENT: Reports no symptoms
Respiratory: Reports no symptoms
Cardiac: Reports no symptoms
ABD/GI: Reports no symptoms
: Reports no symptoms
Musculoskeletal: Reports no symptoms
Skin: Reports no symptoms
Neurological: Reports no symptoms
Endocrine: Reports no symptoms
Hematologic/Lymphatic: Reports no symptoms
Psychiatric: Reports no symptoms
Phy Exam
Physical Exam
Physical Exam:
Physical Exam
General: Ill-appearing, temperature 101.8
Neck: supple. no meningeal signs. normal posterior pharynx
Heart: s1/s2 regular rate and rhythm, no murmur. equal radial
pulses.
HEENT: Pupils equal round reactive to light, EOMI
Lungs: no acute respiratory distress. clear bilaterally
Abdomen: normal bowel sounds. not tender. no CVAT
Neuro: alert and oriented. no focal neurological deficits cranial nerves II through XII intact
Skin: Left lower leg wound with small amount of drainage, edema and erythema
Psychiatric: well kept. interactive and cooperative
Extremities: Left lower leg edema. no calf tenderness. negative homans. good distal pulses
Sepsis
Sepsis Screening
Sepsis Assessment: Sepsis
Sepsis Screening: Lactate >2mmol/L
Sepsis Screen
Sepsis Screen: Sepsis
Date: 01/14/25
Time: 13:33
Course
Orders/Labs/Results
Orders:
Orders
01/14/25 11:24
Electrocardiogram (*1) Urgent
Reason for Study: Fatigue / Weakness
EKG- Treatment ONCE
01/14/25 11:28
CMP [Comprehensive Metabolic Panel] Urgent
Complete Blood Count/With Diff Urgent
Lactic Acid Urgent
NT-proBNP Urgent
PT/INR [Prothrombin Time] Urgent
PTT Urgent
Troponin I Urgent
01/14/25 11:39
Straight Cath As Directed
Frequency: One time now
01/14/25 11:41
Urinalysis Reflex To Culture Urgent
Date Specimen was Collected: 01/14/25
Time Specimen was Collected: 11:39
Urine Microscopic Reflex Cult Urgent
01/14/25 12:42
Piperacillin/Tazo 4.5 Gram [Zosyn] 4.5 gram in 100 ml IV NOW
01/14/25 13:03
Vancomycin [Vancocin] 2,000 mg 0.9% Sodium Chloride 500 ml [Nss] 500 ml IV NOW
01/14/25 13:04
0.9% Sodium Chloride 1000 ml [Nss] 1,000 ml IV BOLUS
01/14/25 13:08
WOUND/OSTOMY CONSULT Routine
Reason for Consult: sacral wound, LLE wound
Abnormal Lab Results
01/14/25 01/14/25
11:28 11:41
WBC 18.4 H 10^3/uL
(4.8-10.8)
RBC 4.31 L 10^6/uL
(4.70-6.10)
Hgb 12.0 L g/dL
(13.0-18.0)
Hct 37.0 L %
(39.0-52.0)
MCHC 32.4 L g/dL
(33.0-37.0)
RDW 15.7 H %
(11.5-14.5)
Plt Count 457 H 10^3/uL
(130-400)
Abs Immat Gran (auto) 0.1 H 10^3/uL
(0-0.05)
Absolute Neuts (auto) 15.5 H 10^3/uL
(1.4-6.5)
Absolute Lymphs (auto) 0.9 L 10^3/uL
(1.2-3.4)
Absolute Monos (auto) 1.2 H 10^3/uL
(0.1-0.6)
Neutrophils % 84.6 H %
(42.2-75.2)
Lymphocytes % 5.0 L %
(20.5-51.1)
BUN 25 H mg/dl
(9-20)
Glucose 282 H mg/dl
(70-99)
Lactic Acid 3.3 H mmol/L
(0.7-2.0)
Ur Occult Blood Reflex 1+ A
(Negative)
Urine Glucose 4+ A
(Negative)
Urine Albumin (Reflex) 2+ A
(Neg - Trace)
01/14/25 11:28
01/14/25 11:28
Vital Signs
Initial and Last Documented VS:
Initial Vital Signs
Temp Pulse Resp BP Pulse Ox
99.8 F 97 18 133/62 94
01/14/25 11:20 01/14/25 11:20 01/14/25 11:20 01/14/25 11:20 01/14/25 11:20
Last Documented Vital Signs
Temp Pulse Resp BP Pulse Ox
101.8 F H 94 21 117/53 93
01/14/25 11:27 01/14/25 12:30 01/14/25 12:30 01/14/25 12:00 01/14/25 12:41
MDM/Problems Addressed
Differential Diagnosis Includes:
Pneumonia, UTI
MDM/Problems Addressed:
79-year-old male with sepsis, left lower leg cellulitis, sacral decubitus. Admit to hospitalist IV Zosyn and vancomycin given.
Chronic conditions affecting care: Cardiomyopathy
Acute Exacerbation and/or Progression of Chronic Illness: Cardiomyopathy
*Pulse Oximetry
SaO2: 93
Oxygen Mode of Delivery: Room air
Patient hypoxic: no
*EKG
Interpreted by ED Provider?: Yes
EKG Intrepretation Date: 01/14/25
EKG Intrepretation Time: 11:24
Interpretation: normal
Comparison EKG: no changes
Heart Rate: 95
Rate: normal
Rhythm: sinus
[place]: left axis deviation
Interval: normal interval
QRS Pattern: normal QRS
Ischemia: no ischemia
*Office Copy Selector Interpretation
Rate: Office Copy Selector- N/A
*Critical Care Note
Total Time (30-74mins, 75-104mins- exclusive of procedures): 32
comment:
Critical care statement: A total of 32 minutes of critical care time was provided for this patient. This includes management of unstable vital signs, evaluation of the patient at bedside, reviewing the patient's pertinent medical records, discussion
with consultants, review of old EKGs and review of pertinent medical records. This time with separate from time utilized to perform the aforementioned documented procedures
Patient Management
Social determinants of health affecting care: Living situation and Strong social support
Discussion with other providers: Hospitalist
Escalation/DeEscalation of care consider admission/obs:
admit indicated
ED Attending Note
-
Portions of this chart may have been created with voice recognition software.� Occasional wrong word or��sound alike� substitutions may have occurred due to the inherent limitations of voice recognition software.
Discharge Plan
Departure
Patient Disposition: Admit
Date of Disposition: 01/14/25
Time of Disposition: 13:06
Admit to: IMU
Presentation/result/management discussed w/ accepting MD/DO: Hospitalist
Patient with high blood pressure during this ER visit?: No
Condition: Fair
Discharge Problem:
Sepsis, Cellulitis of left leg, Pressure ulcer of sacral region, stage 3
Prescriptions:
No Action
furosemide 40 mg Tablet
20 mg PO DAILY
carvedilol 25 mg Tablet
25 mg PO BID
acetaminophen 325 mg Tablet
650 mg PO Q6HPRN PRN (Reason: mild pain)
aspirin 81 mg Tablet,Delayed Release (Dr/Ec)
81 mg PO DAILY
tamsulosin 0.4 mg Capsule
0.4 mg PO DAILY
ergocalciferol (vitamin D2) 1,250 mcg (50,000 unit) Capsule
1,250 mcg PO MO
insulin aspart U-100 100 unit/mL (3 mL) Insulin Pen
0 sliding scale dose SC ACHS
Rx Instructions:
201-250= 4u; 251-300- 6u; 301-350= 8u; 351-400= 10u
omeprazole 20 mg Tablet,Delayed Release (Dr/Ec)
20 mg PO DAILY
zinc oxide 12 % Cream
1 applic TOPICAL TID
clopidogrel 75 mg Tablet
75 mg PO DAILY Qty: 30 0RF
loperamide 2 mg Tablet
2 mg PO Q8HPRN PRN (Reason: DIARRHEA)
miconazole nitrate [Antifungal (miconazole)] 2 % Powder
1 applic TOPICAL BID
magnesium hydroxide [Milk of Magnesia] 400 mg/5 mL Suspension
2,400 mg PO HSPRN PRN (Reason: IF NO BM BY 3RD DAY)
bisacodyl [Dulcolax (bisacodyl)] 10 mg Suppository
10 mg MD DAILYPRN PRN (Reason: IF NO BM MOM)
potassium chloride 20 mEq Tablet Extended Release
20 meq PO DAILY
Vashe 0.033 % Irrigation Solution
1 irrig IRRIGATION DAILYPRN PRN (Reason: LEFT HEEL)
Vashe 0.033 % Irrigation Solution
1 irrig IRRIGATION DAILY
atorvastatin 10 mg tablet
10 mg PO HS
Jardiance 10 mg Tablet
10 mg PO DAILY
Referrals:
Esequiel Urbina MD [Family Provider]
Interventions
Interventions:
*Risk Screen - Suicide Last Done: 01/14/25 11:15
*General Assessment Last Done: 01/14/25 11:15
*Neglect/Abuse Screening Last Done: 01/14/25 11:15
*ED- Fall Risk Assessment Last Done: 01/14/25 11:15
*ED COVID-19 Vaccine History Last Done: 01/14/25 11:15
ED- Cardiac Assessment Last Done: 01/14/25 11:31
ED- Neurological Assessment Last Done: 01/14/25 11:15
ED- Pulmonary Assessment Last Done: 01/14/25 11:15
Discharge Date and Time
Print Language: Rw[place]an
[2025-01-14 12:47] LABS: ALT (SGPT) 14 U/L (0-50)
[2025-01-14] MEDS: ZOSYN 100 IV (13:01)
[2025-01-14] MEDS: NSS 1000 IV (13:10)
[2025-01-14] MEDS: VANCOCIN 540 MG IV (13:34)
--- NOTE | 2025-01-14 14:31 | HPS.HSE ---
Family Physician
-
Family Physician: Esequiel Urbina MD
Chief Complaint
-
Altered mental status and fever.
History of Present Illness
Patient is a 79 years old male senior living resident known to our service with extensive medical history including advanced PAD with history of bilateral lower extremity revascularizations, multiple admissions to the hospital related to recurrent
infection particular lower extremity cellulitis. Patient being sent to the emergency room with altered mental status, lethargy, and fever.
On arrival to the emergency room patient is hemodynamically stable with stable respiratory status. Lethargic and not able to give additional history. On further evaluation patient was found to have a severe left lower extremity cellulitis. He
offers no additional complaints. Patient initiated on broad-spectrum antibiotics and IV fluid bolus.
Medical History
Past Medical History
Past Medical History: Reports GERD, HTN and NIDDM
Past Surgical History: Reports Other (Vascular)
Social History
Unable to obtain full social history at this time due to: Dementia
Tobacco: Non-smoker
Alcohol: None
Drug: None
Personal:
Living: Intermediate
Family History
Family History: Not pertinent
Allergies / Home Medications
Allergies reflects when Allergies were last updated in [facility].
Home Medications with original date entered in [facility]
Allergy/Medication List:
Allergies
Allergy/AdvReac Type Severity Reaction Status Date / Time
acetic acid Allergy Unknown Verified 12/26/24 14:42
hydromorphone Allergy Unknown Verified 12/26/24 14:42
iodine Allergy Unknown Verified 12/26/24 14:42
morphine Allergy Unknown Verified 12/26/24 14:42
Home Medications
acetaminophen 325 mg tablet 650 mg PO Q6HPRN PRN mild pain 04/04/24
aspirin 81 mg tablet,delayed release 81 mg PO DAILY Blood Clot Prevention/Tx 04/04/24
carvedilol 25 mg tablet 25 mg PO BID Blood Pressure 04/04/24
ergocalciferol (vitamin D2) 1,250 mcg (50,000 unit) capsule 1,250 mcg PO MO Supplement 04/04/24
furosemide 40 mg tablet 20 mg PO DAILY Fluid Retention/Swelling 04/04/24
insulin aspart U-100 100 unit/mL (3 mL) subcutaneous pen 0 sliding scale dose SC ACHS Diabetes 04/04/24
omeprazole 20 mg tablet,delayed release 20 mg PO DAILY Gastrointestinal Issue 04/04/24
tamsulosin 0.4 mg capsule 0.4 mg PO DAILY Urinary Issue 04/04/24
zinc oxide 12 % topical cream 1 applic topical TID PERIANAL AREA 04/04/24
clopidogrel 75 mg tablet 75 mg PO DAILY #30 tabs 04/30/24
atorvastatin 10 mg tablet 10 mg PO HS High Cholesterol 10/22/24
bisacodyl 10 mg rectal suppository (Dulcolax (bisacodyl)) 10 mg CO DAILYPRN PRN IF NO BM MOM 10/22/24
loperamide 2 mg tablet 2 mg PO Q8HPRN PRN DIARRHEA 10/22/24
magnesium hydroxide 400 mg/5 mL oral suspension (Milk of Magnesia) 2,400 mg PO HSPRN PRN IF NO BM BY 3RD DAY 10/22/24
miconazole nitrate 2 % topical powder (Antifungal (miconazole)) 1 applic topical BID REDNESS,FOLDS,ABD FOLDS 10/22/24
potassium chloride 20 mEq tablet,extended release 20 meq PO DAILY Supplement 10/22/24
sodium chloride-hypochlorous acid 0.033 % irrigation solution (Vashe) 1 irrig irrigation DAILY LEFT HEEL 10/22/24
sodium chloride-hypochlorous acid 0.033 % irrigation solution (Vashe) 1 irrig irrigation DAILYPRN PRN LEFT HEEL 10/22/24
empagliflozin 10 mg tablet (Jardiance) 10 mg PO DAILY Diabetes 12/26/24
Review of Systems
-
Unable to obtain full review of systems at this time due to: Acuity
Physical Exam
Vital Signs
Vital Signs
Temp Pulse Resp BP Pulse Ox
101.8 F H 101 20 149/70 94
01/14/25 11:27 01/14/25 13:45 01/14/25 13:45 01/14/25 13:00 01/14/25 13:45
Physical Exam
General: Well Developed, Well Nourished and No Apparent Distress
HEENT: NormoCephalic, Moist mucous membranes and Atraumatic
Respiratory: Clear
Cardiac: S1/S2 and Regular Rhythm; No Murmur or Rub
GI: Soft, Non Tender, Non Distended and Normal Bowel Sounds; No Organomegaly
Rectal: Deferred by Provider
Musculoskeletal: No Clubbing, No Cyanosis and No Edema
Skin: No Rash
Neuro: Other (Lethargic unresponsive to loud voice and noxious stimuli. Otherwise noncommunicative)
Laboratory Results
-
01/14/25 11:28
01/14/25 11:28
Laboratory Results
PT 14.0 Sec (11.4-14.6) 01/14/25 11:28
INR 1.03 01/14/25 11:28
APTT 34.3 Sec (23.4-35.0) 01/14/25 11:28
Lactic Acid 3.3 mmol/L (0.7-2.0) H 01/14/25 11:28
Total Bilirubin 0.7 mg/dl (0.2-1.3) 01/14/25 11:28
AST 18 U/L (17-59) 01/14/25 11:28
ALT 14 U/L (0-50) 01/14/25 11:28
Alkaline Phosphatase 79 U/L (38-126) 01/14/25 11:28
Troponin I < 0.012 ng/ml 01/14/25 11:28
Impression/Plan
-
IMPRESSION:
Left lower extremity cellulitis with mild purulence (multiple superficial wounds)
Sepsis present on admission secondary to above
Toxic metabolic encephalopathy secondary to sepsis
Conditions prior to admission
PAD with prior history of lower extremity revascularization bilaterally.
Type 2 diabetes.
Essential hypertension.
GERD.
BPH baseline obstructive sleep apnea.
Protein calorie malnutrition, mild to moderate.
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
Chronic ambulatory disorder, bedridden senior living resident
PLAN:
Sepsis secondary to left lower extremity cellulitis complicated with mild superficial wounds/purulence in the settings of severe PAD.
On exam palpable peripheral pulses, warm left foot with no peripheral/toe ulcers or necrosis.
Recent arterial studies reviewed.
Empiric antibiotics: Vancomycin/Zosyn pending blood cultures.
Check UA for completeness.
Vascular surgery evaluation.
IV hydration with isotonic solution per
Hold Lasix and potassium supplementation
Continue Plavix
Toxic metabolic cephalopathy
Treat above
Aspiration precautions
Monitor mental status closely. If persistent lethargy, consider imaging and neurologic evaluation
Essential hypertension
Hold Lasix and potassium supplementation in settings of acute presentation and risk for hypotension
Continue Coreg with caution and with holding parameters
Type 2 diabetes
Improving hemoglobin A1c.
Carbohydrate controlled diet.
Jardiance
Basal bolus protocol
BPH.
Monitor for retention
Continue Flomax
Full code.
DVT prophylaxis/
--- NOTE | 2025-01-14 15:20 | CON.VAS ---
Addendum entered and electronically signed by Arya Moore MD 01/14/25 15:37:
Seen and examined with AALIYAH Morales. Agree with findings as noted below. Known to service, extensive medical history. Extensive bilateral lower extremity endovascular interventions. Patient brought here today with concern for altered mental
status/lethargy/fever, concern for sepsis. Unable to obtain any real history from patient. On exam/he is in no acute distress at rest, but when essentially palpating anywhere or moving his legs at all he seems to make grunting noises. I
difficulty palpating left femoral pulse, right femoral pulse palpable but weak. Feet are both warm. Left foot may have dependent rubor versus hyperemia. Appears more to be ruborous though. He has no ulcerations in the feet. Nor do his feet
appear ischemic. He has chronic extensive wounds in the calf left more than right. However these appear to be granulating well and at all appear superficial.
His recent lower extremity noninvasive studies are supportive of physical exam findings and that his arteries are calcified/disease but there is reasonable perfusion through both extremities. He does have concern for inflow disease on the left side
which could explain some rubor in the left foot.
Plan/ Am recommending that we repeat his noninvasive lower extremity ultrasounds to make sure nothing has worsened. While he may have some chronic arterial ischemic disease, I do not think anything has progressed here. It appears that things are
stable from a peripheral arterial standpoint but we will confirm with ultrasound. In addition, I do not think that his legs are necessarily a septic source. He does have some mild cellulitic changes in the posterior thigh and behind the knee area
not in the vicinity of his wounds. Is it possible that he has a cellulitis? I guess that is a possibility. Otherwise would recommend evaluation of his sacral decubitus wounds as those could be a source.
Original Note:
Consultation
Consultation Request
Date/Time Consultation Performed: 01/14/25 1515
Requesting Provider: Hospitalist
Performing Provider: Isabell Morales, AALIYAH-C for Arya Moore M.D.
Reason for Consultation: Bilateral chronic wound of the lower extremities
Medical History
-
Chief Complaint: Lethargy
History of Present Illness:
This is a 79 yo male with PMH for chronic lower extremity lymphedema, chronic wounds, diabetes, hypertension, anemia, chronic kidney disease, GA, CAD, CHF, and hyperlipidemia presented to the ED for altered mental status, lethargy, and fever. He
resides at [facility], and is currently responsive to stimuli but not answering purposefully. HPI contributed by chart review. Of note our service was consulted for similar concerns in regards to bilateral chronic superficial
wounds of lower extremities during patient's last admission on 12/29/2024. Arterial duplex with ROBIN/TBI obtained at that time which demonstrated unchanged arterial disease and patent stents, also at that time patient noted to have only superficial
wounds and none appearing to be ischemic in nature, this prompted our team to recommend continued local wound care/observation. Patient also has sacral wound.
Vascular surgery procedural hx:
04/21/24: Intravascular lithotripsy to right superficial femoral artery and popliteal artery calcified stenoses (6 mm x 80 mm E8 shockwave balloon), Balloon angioplasty and drug-eluting stenting of right popliteal artery and superficial femoral
artery (overlapping 6 mm x 140 mm Zilver PTX stents (x 2)), Sharp excisional debridement of right heel including skin and subcutaneous tissue (wound dimensions 3 cm x 3 cm), Sharp excisional debridement of right Achilles wound including skin,
subcutaneous tissue and tendon (wound dimensions 6 cm x 3 cm), Sharp excisional debridement of left heel wound including skin, subcutaneous tissue and bone (wound dimensions 6 cm x 4 cm)
04/15/24: Intravascular lithotripsy to calcified left external iliac artery stenosis (8 mm x 60 mm M5+ shockwave balloon), Balloon angioplasty and stenting of left external iliac artery stenosis (8 mm x 39 mm [place]ington VBX)
Intravascular lithotripsy to calcified left superficial femoral artery and above-knee popliteal artery stenoses (6 mm x 80 mm E8 shockwave balloon)
Balloon angioplasty and stenting of left superficial femoral artery and above-knee popliteal artery stenosis (overlapping 6 mm x 140 mm Zilver PTX distal; 6 mm x 80 mm Zilver PTX proximal)
Balloon angioplasty and stenting of right common iliac artery stenosis (8 mm x 39 mm [place]ington VBX stent)
Sharp excisional debridement of left heel wound including skin and subcutaneous tissue (wound dimensions 8 cm x 3 cm)
Sharp excisional debridement of left pfeiffer wound including skin, subcutaneous tissue, muscle and fascia (wound dimensions 20 cm x 5 cm)
Sharp excisional debridement of right pfeiffer and ankle wound (wound dimensions 10 cm x 8 cm)
Past Medical History
Past Medical History: Other (Hypertension, Hyperlipidemia, Gangrene, HFpEF, Type 2 diabetes, Dementia, BPH, GERD, Acute tracheitis, PVD/PAD, Cellulitis, GA, Dermatitis, Dysphagia, Lymphedema, Osteoarthritis, FRANCESCO)
Past Surgical History: Cardiac (PCI) and Other (BL angiogram)
Social History
Alcohol: None
Drug: None
Personal: Single
Living: Alf
Allergies / Home Medications
Allergy/AdvReac Type Severity Reaction Status Date / Time
acetic acid Allergy Unknown Verified 12/26/24 14:42
hydromorphone Allergy Unknown Verified 12/26/24 14:42
iodine Allergy Unknown Verified 12/26/24 14:42
morphine Allergy Unknown Verified 12/26/24 14:42
�Medication �Instructions �Recorded �Confirmed �Type
acetaminophen 325 mg tablet 650 mg PO Q6HPRN PRN mild pain 04/04/24 01/14/25 History
aspirin 81 mg tablet,delayed 81 mg PO DAILY Blood Clot 04/04/24 01/14/25 History
release Prevention/Tx
carvedilol 25 mg tablet 25 mg PO BID Blood Pressure 04/04/24 01/14/25 History
ergocalciferol (vitamin D2) 1,250 1,250 mcg PO MO Supplement 04/04/24 01/14/25 History
mcg (50,000 unit) capsule
furosemide 40 mg tablet 20 mg PO DAILY Fluid 04/04/24 01/14/25 History
Retention/Swelling
insulin aspart U-100 100 unit/mL 0 sliding scale dose SC ACHS 04/04/24 01/14/25 History
(3 mL) subcutaneous pen Diabetes
omeprazole 20 mg tablet,delayed 20 mg PO DAILY Gastrointestinal 04/04/24 01/14/25 History
release Issue
tamsulosin 0.4 mg capsule 0.4 mg PO DAILY Urinary Issue 04/04/24 01/14/25 History
zinc oxide 12 % topical cream 1 applic topical TID PERIANAL AREA 04/04/24 01/14/25 History
clopidogrel 75 mg tablet 75 mg PO DAILY #30 tabs 04/30/24 01/14/25 Rx
atorvastatin 10 mg tablet 10 mg PO HS High Cholesterol 10/22/24 01/14/25 History
bisacodyl 10 mg rectal suppository 10 mg ME DAILYPRN PRN IF NO BM MOM 10/22/24 01/14/25 History
(Dulcolax (bisacodyl))
loperamide 2 mg tablet 2 mg PO Q8HPRN PRN DIARRHEA 10/22/24 01/14/25 History
magnesium hydroxide 400 mg/5 mL 2,400 mg PO HSPRN PRN IF NO BM BY 10/22/24 01/14/25 History
oral suspension (Milk of Magnesia) 3RD DAY
miconazole nitrate 2 % topical 1 applic topical BID 10/22/24 01/14/25 History
powder (Antifungal (miconazole)) REDNESS,FOLDS,ABD FOLDS
potassium chloride 20 mEq 20 meq PO DAILY Supplement 10/22/24 01/14/25 History
tablet,extended release
sodium chloride-hypochlorous acid 1 irrig irrigation DAILY LEFT HEEL 10/22/24 01/14/25 History
0.033 % irrigation solution (Vashe)
sodium chloride-hypochlorous acid 1 irrig irrigation DAILYPRN PRN 10/22/24 01/14/25 History
0.033 % irrigation solution (Vashe) LEFT HEEL
empagliflozin 10 mg tablet 10 mg PO DAILY Diabetes 12/26/24 01/14/25 History
(Jardiance)
Review of Systems
-
Unable to obtain full review of systems at this time due to: Dementia
Physical Exam
Vital Signs
Temp Pulse Resp BP Pulse Ox
101 F H 93 20 128/64 96
01/14/25 14:55 01/14/25 14:30 01/14/25 14:30 01/14/25 14:00 01/14/25 14:30
Lab Results
01/14/25 11:28
01/14/25 11:28
Troponin I < 0.012 ng/ml 01/14/25 11:28
Edd-G-Xgqpejuticc Pept 1470 pg/ml 01/14/25 11:28
Physical Exam
General: No Apparent Distress
HEENT: Normocephalic, Anicteric and Atraumatic
Respiratory: Non Labored Respirations
Cardiac: Negative JVD
GI: Soft, Non Tender and Non Distended
Musculoskeletal: Edema (Bilateral lower extremities trace edema)
Skin: Warm and Other (Bilateral lower extremities with superficial wounds on anterior and posterior calf, no evidence of wound at feet)
Neuro: Other (Patient response to tactile stimuli, moans in pain when touching bilateral lower extremities or area of groin)
Pulses: Left Femoral: +1 and Right Femoral: +1 (Unable to palpate distal pulses)
Assessment / Plan
-
79-year-old male here with nonhealing lower extremity wounds bilaterally.
Plan:
Ultrasound pending
Continue local wound care
Plan reviewed with attending Dr. Arya Moore M.D.
--- NOTE | 2025-01-14 15:40 | WOUNDNOTE ---
[facility] RN note: Patient admitted with weakness, possible sepsis
See H&P for complete history.
PMH: PAD with prior history of lower extremity revascularization bilaterally.,Type 2 diabetes, Essential hypertension,
GERD, BPH baseline obstructive sleep apnea, Protein calorie malnutrition, mild to moderate, Dementia suspect vascular type.
Chronic ambulatory disorder, bedridden [facility] resident
Wound Location and type/assessment: Patient admitted with open wounds to left lower leg and sacrum. Patient first assessed in ER but was in too much pain to turn or provide care. Left leg with scattered open areas, no odor note. Left foot +rubor,
tender to touch. Patient known to have sacral PI but it could not be assessed at this time.
Appetite: unknown
Pressure redistribution devices in place: Air mattress ordered
Plan: Hospitalist contacted for pain med order prior to additional care and assessment. Orders added for wound care care to left leg. JOHN Sampson given update. Patient to be transferred to [facility]. TT receiving JOHN Sanders, regarding need for air bed.
[facility] RN to follow up with patient on 01/15 for full assessment, including sacral PI.
Note to case management of equipment requested for discharge:
Recommend follow up at wound care center upon discharge.
--- NOTE | 2025-01-14 15:41 | WOUNDNOTE ---
BILATERAL LOWER LEGS
--- NOTE | 2025-01-14 15:42 | WOUNDNOTE ---
LEFT MEDIAL LOWER LEG
--- NOTE | 2025-01-14 15:43 | WOUNDNOTE ---
LEFT MEDIAL LOWER LEG
--- NOTE | 2025-01-14 15:43 | WOUNDNOTE ---
LEFT LATERAL LOWER LEG
--- NOTE | 2025-01-14 15:44 | WOUNDNOTE ---
LEFT DORSAL FOOT
--- NOTE | 2025-01-14 15:44 | WOUNDNOTE ---
RIGHT ANTERIOR LOWER LEG
--- NOTE | 2025-01-14 15:46 | WOUNDNOTE ---
LEFT POSTERIOR KNEE
--- NOTE | 2025-01-14 17:04 | WOUNDNOTE ---
CALVES/HEELS (POSTERIOR)
--- NOTE | 2025-01-14 17:15 | WOUNDNOTE ---
[facility] RN note: Patient admitted cellulitis. Patient with stage 4 sacral pressure injury, pink suspect to muscle. +Surrounding rash suspect r/t moisture and possible yeasty. LE's partial and full thickness ulcer r/t venous and arterial disease (more
ulcer on LLE than RLE). L foot swollen with diffuse erythema. Pedal pulses heard via portable Doppler. Vascular on consult. LE and sacral dressings changed. Patient is on a [facility] air bed. Patient turned with help from JOHN Sanders. TruVue littray
boots reapplied. Dr. Sutton approved local skin/wound care, air mattress and soft heel relief boots. Care plan updated. Will follow as needed.
--- NOTE | 2025-01-14 17:15 | WOUNDNOTE ---
L FOOT/LE (MEDIAL)
--- NOTE | 2025-01-14 17:22 | PHA.VAN.IN ---
Addendum entered and electronically signed by Pinky Evans Jose J 01/15/25 08:54:
Update to Prior Dosing Experience:
In April 2024, patient was on Vanc 1g IV Q12H, which provided the following patient-specific PK on 04/11/24:
- Assessment - Therapeutic Drug Monitoring
Extrapolated Cmax (mcg/mL): 30.5
Peak level was drawn: Appropriately (drawn ~2.9H after end of previous infusion)
Extrapolated Cmin (mcg/mL): 20.9
Trough Drawn: Appropriately
Levels were drawn: At steady state (levels drawn after 11th maintenance dose)
Calculated AUC (mcg*h/mL): 609
Calculated ke: 0.0345
Calculated half life (H): 20.1
Calculated Vd (L): 95 (~1 L/kg)
Calculated Vanc CL (ml/min): 55
Patient did not follow population PK and had prolonged half-life.
Patient received several days of dosing by level and was eventually scheduled on Vanc 1500mg IV Q24H
-Regimen provided a trough of 12
-Regimen predicted AUC 469, Cmax 28, Cmin 12.9 utilizing patient-specific PK from 04/11/24
Original Note:
Assessment
- Assessment
Renal Function: Appears similar to baseline (12/31/24 BASELINE SCR: 0.7)
Concomitant Antimicrobials: ZOSYN
- Previous Dosing Experience
Previous Regimen: 1250MG IV Q24H
Date of Regimen: 12/27/24
Provided Trough of: UNKNOWN
Provided AUC of: UNKNOWN
Patient's SCR is: Similar to previous dosing experience (12/26/24 SCR = 0.6)
Patient's weight is: Similar to previous dosing experience (12/26/24 WT = 77.1 KG)
AUC Dosing Plan
- Dosing Variables
Dosing Weight (kg): 78.7
Dosing CrCl (ml/min): 70
Vd coefficient (L/kg): 0.7
- Empiric Dosing
Initial / Loading Dose: 2GM
Maintenance Regimen: 750MG IV Q12H
Estimated AUC (mcg*h/mL): 449
Estimated Peak (mcg*h/mL): 25.8
Estimated Trough (mcg/ml): 13.0
Estimated Half Life (H): 11.1
Pharmacokinetics Vancomycin I
- -
Patient Age: 79
Patient Sex: Male
Vancomycin Day #: 1
Indication: Skin And Soft Tissue (SEPSIS; LLE CELLULITIS)
Requesting Provider: DULCE
Height / Weight:
Height 5 ft 6 in
Actual Weight 78.67 kg
Pertinent Past Medical History: ADMIT 12/26/24 FOR SIMILAR
- Vital Signs / Lab Results
Temp Pulse Resp BP Pulse Ox
100 F 93 18 116/86 95
01/14/25 17:18 01/14/25 17:18 01/14/25 17:18 01/14/25 17:18 01/14/25 17:18
Lab Results - Hematology
01/14/25
11:28
WBC 18.4 H
Lab Results - Chemistry
01/14/25
11:28
BUN 25 H
Creatinine 0.8
Albumin 3.9
01/14/25 01/14/25
11:28 14:53
Lactic Acid 3.3 H 2.1 H
Lab Results - Urine
01/14/25
11:41
Urine Nitrite (Reflex) Negative
Leukocyte Esterase Rfl Negative
Urine WBC (Reflex) 0-2
Ur Squamous Epith Cells 3-5
--- NOTE | 2025-01-14 17:28 | PTCARENOTE ---
Pt admitted from ED ao x2. NSR LCTA on RA B/L abd round obese +B/S x4. incont b&& pt incont of bowel on stretcher. Bowl movement under and inside sacral wound. wound care provided, pt cleaned up. multiple scattered vascular wounds B/L LE L>R. Left
pedal adrea extending up LE red and warm to the touch. Sacral wound noted with 12 tunneling. No edema, +PP B/L with Doppler. air bed, fiber filled boots. family educated on wound care and repositioning. CB in reach.
[2025-01-14] MEDS: LR 1000 IV (18:10)
[2025-01-14] MEDS: HEPARIN 5000 UNITS SC (18:11)
[2025-01-14 18:16] LABS: Glucose - Point of Care 195 mg/dl (70-99)
[2025-01-14] MEDS: NOVOLOG FLEXPEN-LOW RESISTANCE SC (18:18)
[2025-01-14] MEDS: ZOSYN 50 IV (19:38)
[2025-01-14] MEDS: COREG 25 MG PO (19:39)
[2025-01-14] MEDS: LIPITOR 10 MG PO (21:18)
[2025-01-14 21:25] LABS: Glucose - Point of Care 230 mg/dl (70-99)
[2025-01-15] MEDS: HEPARIN 5000 UNITS SC ×3 (01:07→18:14)
[2025-01-15] MEDS: ZOSYN 50 IV ×4 (01:07→20:49)
[2025-01-15] MEDS: LR 1000 IV ×2 (03:35→22:23)
[2025-01-15 03:43] VITALS: BP 116/58
[2025-01-15] MEDS: VANCOCIN 150 IV ×2 (05:44→18:14)
[2025-01-15 07:15] VITALS: BP 139/60
[2025-01-15 07:38] LABS: Glucose - Point of Care 143 mg/dl (70-99)
--- NOTE | 2025-01-15 08:10 | PHA.VAN.FU ---
Vancomycin Assessment / Plan
- Assessment
Renal Function: No New Labs Today
Concomitant Antimicrobials: piperacillin/tazobactam
- Dosing Plan
Adjust Regimen to: Vanc 1500mg Q24H starting 01/16 0600 based on prior experience/half-life
Dosing Comments: continue 750mg Q12H through 1800 dose tonight
- Monitoring Plan
No level(s) ordered at this time: consider levels in next several days
- Follow Up
Pharmacy will continue to follow.
Vancomycin Follow UP
- -
Patient Age: 79
Patient Sex: Male
Vancomycin Day #: 2
Indication: Skin And Soft Tissue
Requesting Provider: Dr. Sutton
Pertinent Antimicrobial Allergies:
no pertinent antibiotic allergies
Height / Weight:
Height 5 ft 6 in
Actual Weight 78.67 kg
Pertinent Past Medical History: CKD, DM 2
- Vital Signs / Lab Results
Temp Pulse Resp BP Pulse Ox
97.6 F 80 18 139/60 94
01/15/25 07:15 01/15/25 07:15 01/15/25 07:15 01/15/25 07:15 01/15/25 07:15
Lab Results - Hematology
01/14/25
11:28
WBC 18.4 H
Lab Results - Chemistry
01/14/25
11:28
BUN 25 H
Creatinine 0.8
Albumin 3.9
01/14/25 01/14/25
11:28 14:53
Lactic Acid 3.3 H 2.1 H
Lab Results - Urine
01/14/25
11:41
Urine Nitrite (Reflex) Negative
Leukocyte Esterase Rfl Negative
Ur Squamous Epith Cells 3-5
[2025-01-15] MEDS: FLOMAX 0.4 MG PO (08:11)
[2025-01-15] MEDS: COREG 25 MG PO ×2 (08:11→20:49)
[2025-01-15] MEDS: PLAVIX 75 MG PO (08:11)
[2025-01-15] MEDS: NOVOLOG FLEXPEN-LOW RESISTANCE SC ×2 (08:12→12:14)
[2025-01-15] MEDS: FARXIGA 10 MG PO (08:13)
--- NOTE | 2025-01-15 11:17 | CM ---
CM contacted by [facility] [employer] Protective Property Field Inspector, Yobani (phone [phone]) due to report being filed late yesterday by the ED.
Records provided to Yobani, including wound care notes and pictures.
AAA evaluation completed today; Yobani will contact CM on Sunday for updates.
Plan: CM to follow for discharge to SNF; family would like another facility with Martiniquais speaking staff if possible.
[2025-01-15 11:30] VITALS: BMI 28.0
[2025-01-15] MEDS: LOW STRENGTH ASPIRIN 81 MG PO (12:08)
[2025-01-15 12:25] VITALS: BP 129/53
[2025-01-15 13:25] LABS: Hematocrit 32.0 % (39.0-52.0); Hemoglobin 10.6 g/dL (13.0-18.0); Mean Corp Hgb Conc. 33.1 g/dL (33.0-37.0); Mean Corpuscular Volume 84.7 fL (80.0-94.0); Nucleated Red Blood Cells % 0 % (-); Platelet Count 341 10^3/uL (130-400); Red Cell Dist. Width 15.9 % (11.5-14.5)
[2025-01-15 13:40] LABS: Blood Urea Nitrogen 25 mg/dl (9-20); Calcium 9.5 mg/dl (8.4-10.2); Carbon Dioxide 19 mmol/L (22-30); Chloride 111 mmol/L (98-107); Estimated Creatinine Clearance 80 ml/min; Glucose 176 mg/dl (70-99); Potassium 3.1 mmol/L (3.5-5.1); Sodium 139 mmol/L (135-145); eGFR > 60.00
--- NOTE | 2025-01-15 15:06 | W.PN.HOSP.TC ---
Today's Communication/Plan
-
Improving temperature curve
Improving mental status
Continue broad-spectrum antibiotics
Follow final blood cultures
Wound care
Hold Lasix
Continue IV fluids until improved mental status and stable oral intake
CBC/BMP in a.m.
Discussed with patient's daughter at the bedside
Assessment / Plan
Assessment / Plan
IMPRESSION:
Left lower extremity cellulitis with mild purulence (multiple superficial wounds)
Sepsis present on admission secondary to above
Toxic metabolic encephalopathy secondary to sepsis
Conditions prior to admission
PAD with prior history of lower extremity revascularization bilaterally.
Type 2 diabetes.
Essential hypertension.
GERD.
BPH baseline obstructive sleep apnea.
Protein calorie malnutrition, mild to moderate.
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
Chronic ambulatory disorder, bedridden jail resident
PLAN:
Sepsis secondary to left lower extremity cellulitis complicated with mild superficial wounds/purulence in the settings of severe PAD.
On exam palpable peripheral pulses, warm left foot with no peripheral/toe ulcers or necrosis.
Vascular surgery input appreciated. Clinically no evidence of critical ischemia
Recent arterial studies reviewed.
Repeated arterial ultrasound with no significant changes
Empiric antibiotics: Vancomycin/Zosyn pending blood cultures.
Wound care
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
Urinalysis unremarkable
IV hydration with isotonic solution per
Hold Lasix and potassium supplementation
Continue Plavix
Toxic metabolic cephalopathy
Treat above
Aspiration precautions
Monitor mental status closely. If persistent lethargy, consider imaging and neurologic evaluation
Essential hypertension
Hold Lasix and potassium supplementation in settings of acute presentation and risk for hypotension
Continue Coreg with caution and with holding parameters
Type 2 diabetes
Improving hemoglobin A1c.
Carbohydrate controlled diet.
Jardiance
Basal bolus protocol
BPH.
Monitor for retention
Continue Flomax
Full code.
Anticipated Discharge: > 48 hours
Subjective/Interval History
-
Date of Service: January 15, 2025
Objective Data
-
Labs:
Laboratory Results
01/15/25
12:43
WBC 14.8 H
Hgb 10.6 L
Hct 32.0 L
Plt Count 341 D
Sodium 139
Potassium 3.1 L
Chloride 111 H
Carbon Dioxide 19 L
BUN 25 H
Creatinine 0.7
Glucose 176 H
Calcium 9.5
Vital Signs:
Vital Signs
Temp Pulse Resp BP Pulse Ox
98.5 F 75 12 129/53 95
01/15/25 12:25 01/15/25 12:25 01/15/25 12:25 01/15/25 12:25 01/15/25 12:25
Physical Exam
-
General: Well Developed and No Apparent Distress
HEENT: Normocephalic, Atraumatic and Moist Mucous Membranes
Respiratory: Clear to Auscultation
Cardiac: Regular Rhythm and S1/S2; Negative Murmur, Rub or Gallop
GI: Soft, Nontender, Nondistended and Normal Bowel Sounds; Negative Organomegaly
Rectal: Deferred by Provider
Musculoskeletal: No Clubbing, No Cyanosis and No Edema
Skin: Negative Rash
Neuro: Nonfocal/Grossly Intact
[2025-01-15 15:45] VITALS: BP 128/47
[2025-01-15 18:19] LABS: Glucose - Point of Care 352 mg/dl (70-99)
[2025-01-15] MEDS: NOVOLOG FLEXPEN-LOW RESISTANCE 5 UNITS SC (18:41)
[2025-01-15 20:13] VITALS: BP 112/51
[2025-01-15] MEDS: LIPITOR 10 MG PO (20:49)
--- NOTE | 2025-01-15 22:00 | PTCARENOTE ---
Addendum entered by Samantha Mejia RN 01/16/25 05:46:
Pt refusing am blood work.
Original Note:
Pt refusing HS blood sugar check.
[2025-01-16 00:08] VITALS: BP 131/55
[2025-01-16] MEDS: HEPARIN 5000 UNITS SC ×4 (00:09→23:10)
[2025-01-16] MEDS: ZOSYN 50 IV ×4 (02:44→21:15)
[2025-01-16 03:34] VITALS: BP 124/52
[2025-01-16 06:11] VITALS: BMI 28.9
[2025-01-16] MEDS: VANCOCIN 530 MG IV (06:17)
[2025-01-16 08:07] VITALS: BP 124/54
[2025-01-16 08:14] LABS: Glucose - Point of Care 174 mg/dl (70-99)
[2025-01-16] MEDS: TYLENOL 650 MG PO ×2 (08:20→17:09)
[2025-01-16] MEDS: FARXIGA 10 MG PO (08:20)
[2025-01-16] MEDS: LOW STRENGTH ASPIRIN 81 MG PO (08:20)
[2025-01-16] MEDS: COREG 25 MG PO ×2 (08:20→21:15)
[2025-01-16] MEDS: PLAVIX 75 MG PO (08:21)
[2025-01-16] MEDS: FLOMAX 0.4 MG PO (08:21)
[2025-01-16] MEDS: NOVOLOG FLEXPEN-LOW RESISTANCE 1 UNITS SC ×2 (08:23→17:08)
[2025-01-16] MEDS: LR IV (08:33)
[2025-01-16] MEDS: LR 1000 IV ×2 (10:57→21:20)
[2025-01-16 11:00] VITALS: BP 115/48
[2025-01-16 12:01] LABS: Hematocrit 27.5 % (39.0-52.0); Hemoglobin 9.1 g/dL (13.0-18.0); Mean Corp Hgb Conc. 33.1 g/dL (33.0-37.0); Mean Corpuscular Volume 85.9 fL (80.0-94.0); Nucleated Red Blood Cells % 0 % (-); Platelet Count 374 10^3/uL (130-400); Red Cell Dist. Width 15.6 % (11.5-14.5)
[2025-01-16 12:11] LABS: Blood Urea Nitrogen 21 mg/dl (9-20); Calcium 8.5 mg/dl (8.4-10.2); Carbon Dioxide 22 mmol/L (22-30); Chloride 103 mmol/L (98-107); Estimated Creatinine Clearance 80 ml/min; Glucose 204 mg/dl (70-99); Potassium 2.9 mmol/L (3.5-5.1); Sodium 131 mmol/L (135-145); eGFR > 60.00
--- NOTE | 2025-01-16 12:33 | PN.CDI ---
CDI
- -
CDI:
Physician Documentation Request
Admit Date: 01/14/25 14:50
Dear Doctor Lesley,
Please review the following and provide your response in the progress notes.
Clinical Indicators:
Pt admitted with Sepsis 2/2 Cellulitis of lower extremity
Documented per nursing wound care note 01/14, ' Present on admission left posterior heel pressure injury stage 1 ...silicone border....present on admission sacrum pressure injury stage 4 ...suspect to muscle...silicone border ...'
Physician documentation of the type and location of wounds is required for compliant documentation. Based on the above clinical findings and your assessment, please provide the following in your progress note:
1. Location of the ulcer/wound, including laterality.( FOR EACH WOUND)
2. Type (etiology) of ulcer/wound:
- Pressure (decubitus) ulcer
- Non-pressure ulcer
- Other ( please specify)
Use of terms such as suspected, likely, concern for, or probable (associated with a specific diagnosis that is being evaluated, monitored, or treated as if it exists) are acceptable and can be coded in the inpatient setting, when documented at the
time of discharge.
Thank you,
Cande Parsons RN
CDI Specialist
[place] [facility]
Please use your independent medical judgment in providing your response.
*Source: National Pressure Ulcer Advisory Panel (NPUAP)
[2025-01-16 13:00] VITALS: BMI 28.9
--- NOTE | 2025-01-16 13:36 | WOUNDNOTE ---
L CALF (POSTERIOR MEDIAL)
--- NOTE | 2025-01-16 13:37 | WOUNDNOTE ---
L CALF (POSTERIOR LATERAL)
--- NOTE | 2025-01-16 13:38 | WOUNDNOTE ---
L ANKLE/CALF (LATERAL POSTERIOR)
--- NOTE | 2025-01-16 13:40 | WOUNDNOTE ---
L ANKLE/CALF (LATERAL POSTERIOR)
[2025-01-16] MEDS: NOVOLOG FLEXPEN-LOW RESISTANCE SC (13:58)
--- NOTE | 2025-01-16 14:12 | WOUNDNOTE ---
[facility] RN note: Assisted JOHN Stevenson with patient's wound care. Patient incontinent of 2 loose light brown stools. Kavita care given. Sacral dressing changed. Barrier ointment to kavita scrotal skin. Sacral ulcer clean. Sacral periwound skin with MASD
however, less rash appearing. Miconazole powder applied to kavita sacral wound skin. New small purple area noted L plantar distal 2nd toe and L medial 1st MTH. L foot edema remains with mild diffuse erythema. L foot warm. Pedal pulses heard via
portable Doppler (L>R). Skin prep and [id number] silicone border foam applied to L medial 1st MTH and L plantar 3rd MTH purple areas). Skin prep applied to L distal plantar 2nd toe and covered loosely with [id number] gauze. L lateral posterior ankle
ulcer with white tissue suspect tendon exposed. L heel blanchable persistent red. R heel scar same. Heel foam dressings changed. LE wound care done with help from JOHN Stevenson and patient's daughter Eugenia. Instructed daughter not to apply TruVue heel
boots too tight. TruVue lite boots reapplied. Elevate LLE on pillow. Patient turned to R semi side lying position with help from JOHN Stevenson. [place] texted Dr. Sutton and Vascular PA Isabell Morales re: new small purple areas noted L medial 1st MTH and L
distal 2nd toe tip and noticed L posterior lateral ulcer with probable tendon exposed (not sure if new vs was present under dry scab). Dr. Sutton approved updating wound care order. Will follow as needed.
[2025-01-16 15:00] VITALS: BP 128/54
--- NOTE | 2025-01-16 15:32 | PHA.VAN.FU ---
Vancomycin Assessment / Plan
- Assessment
Renal Function: Stable
WBC's are: Trending Down
In the past 24 hrs, patient has been: Afebrile
Concomitant Antimicrobials: piperacillin/tazobactam
- Dosing Plan
Continue: Vanc 1500mg Q24H based on prior dosing experience
- Monitoring Plan
No level(s) ordered at this time: consider levels in next few days
- Follow Up
Pharmacy will continue to follow.
Vancomycin Follow UP
- -
Patient Age: 79
Patient Sex: Male
Vancomycin Day #: 3
Indication: Skin And Soft Tissue
Requesting Provider: Dr. Sutton
Pertinent Antimicrobial Allergies:
no pertinent antibiotic allergies
Height / Weight:
Height 5 ft 6 in
Actual Weight 81.284 kg
Pertinent Past Medical History: CKD, DM 2
- Vital Signs / Lab Results
Temp Pulse Resp BP Pulse Ox
98.4 F 70 16 115/48 95
01/16/25 11:00 01/16/25 11:00 01/16/25 11:00 01/16/25 11:00 01/16/25 08:07
Lab Results - Hematology
01/14/25 01/15/25 01/16/25
11:28 12:43 11:41
WBC 18.4 H 14.8 H 11.6 H
Lab Results - Chemistry
01/14/25 01/15/25 01/16/25
11:28 12:43 11:41
BUN 25 H 25 H 21 H
Creatinine 0.8 0.7 0.7
Estimated Creat Clear 80 80
Albumin 3.9
01/14/25 01/14/25
11:28 14:53
Lactic Acid 3.3 H 2.1 H
[2025-01-16] MEDS: KCL 40 MEQ PO (17:01)
[2025-01-16 17:08] LABS: Glucose - Point of Care 179 mg/dl (70-99)
--- NOTE | 2025-01-16 17:50 | W.PN.HOSP.TC ---
Today's Communication/Plan
-
CTA of the lower extremities
Wound care
Antibiotics
Assessment / Plan
Assessment / Plan
IMPRESSION:
Left lower extremity cellulitis with mild purulence (multiple superficial wounds)
Sepsis present on admission secondary to above
Toxic metabolic encephalopathy secondary to sepsis
Hypokalemia
Hypovolemic hyponatremia
Conditions prior to admission
PAD with prior history of lower extremity revascularization bilaterally.
Type 2 diabetes.
Essential hypertension.
GERD.
BPH baseline obstructive sleep apnea.
Protein calorie malnutrition, mild to moderate.
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
Chronic ambulatory disorder, bedridden retirement resident
PLAN:
Sepsis secondary to left lower extremity cellulitis complicated with mild superficial wounds/purulence in the settings of severe PAD.
On exam palpable peripheral pulses, warm left foot with no peripheral/toe ulcers or necrosis.
Vascular surgery input appreciated. Clinically no evidence of critical ischemia
Recent arterial studies reviewed.
Repeated arterial ultrasound with no significant changes
Empiric antibiotics: Vancomycin/Zosyn
Blood cultures negative to date
01/16 wound care and imaging reviewed. Patient has 2 necrotic areas at the plantar aspect of the left foot at the 1st and 3rd metatarsal which was not present upon admission
Discussed with vascular
Will order CTA with runoff with consideration of CT angiogram early next week. Hold Lasix anticipating contrast exposure
Left leg cellulitis with improved erythema and induration
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
Urinalysis unremarkable
Continue Plavix
Toxic metabolic cephalopathy
Treat above
Aspiration precautions
Monitor mental status closely.
Mental status improved
Essential hypertension
Lasix had been held since admission due to soft BP and dehydration as well as in anticipation to contrast exposure with CTA and possible angiogram
Continue Coreg with caution and with holding parameters
Type 2 diabetes
Improving hemoglobin A1c.
Carbohydrate controlled diet.
Jardiance
Basal bolus protocol
BPH.
Monitor for retention
Continue Flomax
Full code.
Anticipated Discharge: > 48 hours
Subjective/Interval History
-
Date of Service: January 16, 2025
Objective Data
-
Labs:
Laboratory Results
01/16/25
11:41
WBC 11.6 H
Hgb 9.1 L
Hct 27.5 L
Plt Count 374
Sodium 131 L D
Potassium 2.9 L
Chloride 103
Carbon Dioxide 22
BUN 21 H
Creatinine 0.7
Glucose 204 H
Calcium 8.5
Vital Signs:
Vital Signs
Temp Pulse Resp BP Pulse Ox
98.2 F 77 16 128/54 99
01/16/25 15:00 01/16/25 15:00 01/16/25 15:00 01/16/25 15:00 01/16/25 15:00
I&O
01/15/25 01/16/25 01/17/25
06:59 06:59 06:59
Intake Total 820 / 820
Balance 820 / 820
Physical Exam
-
General: Well Developed and No Apparent Distress
HEENT: Normocephalic, Atraumatic and Moist Mucous Membranes
Respiratory: Clear to Auscultation
Cardiac: Regular Rhythm and S1/S2; Negative Murmur, Rub or Gallop
GI: Soft, Nontender, Nondistended and Normal Bowel Sounds; Negative Organomegaly
Rectal: Deferred by Provider
Musculoskeletal: No Clubbing, No Cyanosis and No Edema
Skin: Negative Rash
Neuro: Nonfocal/Grossly Intact
--- NOTE | 2025-01-16 17:51 | PTCARENOTE ---
Wound care done with cash sales audit clerk and daughter, Collette. PRN tylenol given to pt x2 throughout shift to help with pain during turning/repositioning. CT scan ordered. Pt allergic to contrast dye, discussed with CT - premedication to start overnight and
plan for CT in the morning. POC ongoing.
[2025-01-16] MEDS: MEDROL 32 MG PO (21:15)
[2025-01-16] MEDS: LIPITOR 10 MG PO (21:15)
[2025-01-16 23:50] VITALS: BP 146/62
[2025-01-17] MEDS: ZOSYN 50 IV ×4 (02:51→20:56)
[2025-01-17] MEDS: MEDROL 32 MG PO (05:41)
[2025-01-17] MEDS: VANCOCIN 530 MG IV (05:41)
[2025-01-17] MEDS: BENADRYL 50 MG IV (08:36)
[2025-01-17 08:41] LABS: Glucose - Point of Care 187 mg/dl (70-99)
[2025-01-17 08:43] VITALS: BP 130/86
--- NOTE | 2025-01-17 08:55 | PHA.VAN.FU ---
Vancomycin Assessment / Plan
- Dosing Plan
Continue: 1500MG Q24H
- Monitoring Plan
Peak Level: 01/18 @0930
Trough Level: 01/19 @0530
- Follow Up
Pharmacy will continue to follow.
Vancomycin Follow UP
- -
Patient Age: 79
Patient Sex: Male
Vancomycin Day #: 4
Indication: Skin And Soft Tissue
Requesting Provider: Dr. Sutton
Pertinent Antimicrobial Allergies:
no pertinent antibiotic allergies
Height / Weight:
Height 5 ft 6 in
Actual Weight 81.284 kg
Pertinent Past Medical History: CKD, DM 2
- Vital Signs / Lab Results
Temp Pulse Resp BP Pulse Ox
97.6 F 62 15 130/86 95
01/17/25 08:43 01/17/25 08:43 01/17/25 08:43 01/17/25 08:43 01/16/25 23:50
Lab Results - Hematology
01/14/25 01/15/25 01/16/25
11:28 12:43 11:41
WBC 18.4 H 14.8 H 11.6 H
Lab Results - Chemistry
01/14/25 01/15/25 01/16/25
11:28 12:43 11:41
BUN 25 H 25 H 21 H
Creatinine 0.8 0.7 0.7
Estimated Creat Clear 80 80
Albumin 3.9
01/14/25 01/14/25
11:28 14:53
Lactic Acid 3.3 H 2.1 H
[2025-01-17] MEDS: TYLENOL 650 MG PO (09:35)
[2025-01-17] MEDS: PLAVIX 75 MG PO (09:35)
[2025-01-17] MEDS: NOVOLOG FLEXPEN-LOW RESISTANCE SC (09:36)
[2025-01-17] MEDS: HEPARIN 5000 UNITS SC ×3 (09:36→23:44)
[2025-01-17] MEDS: FLOMAX 0.4 MG PO (09:36)
[2025-01-17] MEDS: LOW STRENGTH ASPIRIN 81 MG PO (09:36)
[2025-01-17] MEDS: COREG 25 MG PO ×2 (09:36→20:58)
[2025-01-17] MEDS: FARXIGA 10 MG PO (09:38)
[2025-01-17 12:21] LABS: Hematocrit 33.0 % (39.0-52.0); Hemoglobin 10.7 g/dL (13.0-18.0); Mean Corp Hgb Conc. 32.4 g/dL (33.0-37.0); Mean Corpuscular Volume 86.8 fL (80.0-94.0); Nucleated Red Blood Cells % 0 % (-); Platelet Count 428 10^3/uL (130-400); Red Cell Dist. Width 15.5 % (11.5-14.5)
[2025-01-17 12:24] LABS: Glucose - Point of Care 279 mg/dl (70-99)
[2025-01-17] MEDS: NOVOLOG FLEXPEN-LOW RESISTANCE 3 UNITS SC (12:29)
--- NOTE | 2025-01-17 12:42 | PTCARENOTE ---
Pt found this am with gross amounts of urine incontinenc that fully saturated a double kavidean, drawn sheets and cups of urine filled the holes in the static underlay under him. with two assist we turned and repositioned him, cleansed his sacrum
and scrotral/ groin area. Pt was given IV bendadryl for procedure and was sent for CT scan angiogram. Pt now back, daughter is at bedside and patient is now eating lunch.
[2025-01-17 13:01] LABS: Blood Urea Nitrogen 21 mg/dl (9-20); Calcium 8.7 mg/dl (8.4-10.2); Carbon Dioxide 23 mmol/L (22-30); Chloride 102 mmol/L (98-107); Estimated Creatinine Clearance 93 ml/min; Glucose 277 mg/dl (70-99); Potassium 4.3 mmol/L (3.5-5.1); Sodium 132 mmol/L (135-145); eGFR > 60.00
--- NOTE | 2025-01-17 13:18 | W.PN.HOSP.TC ---
Today's Communication/Plan
-
cont Abx pending further VascSx mgmt
restart lasix
Assessment / Plan
Assessment / Plan
IMPRESSION:
Left lower extremity cellulitis with mild purulence (multiple superficial wounds)
Sepsis present on admission secondary to above
Toxic metabolic encephalopathy secondary to sepsis
Hypokalemia
Hypovolemic hyponatremia
Conditions prior to admission
PAD with prior history of lower extremity revascularization bilaterally.
Type 2 diabetes.
Essential hypertension.
GERD.
BPH baseline obstructive sleep apnea.
Protein calorie malnutrition, mild to moderate.
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
PLAN:
Sepsis secondary to left lower extremity cellulitis complicated with mild superficial wounds/purulence in the settings of severe PAD.
On exam palpable peripheral pulses, warm left foot with no peripheral/toe ulcers or necrosis.
Vascular surgery input appreciated. Clinically no evidence of critical ischemia
Recent arterial studies reviewed.
Repeated arterial ultrasound with no significant changes
Empiric antibiotics: Vancomycin/Zosyn
Blood cultures negative to date
01/16 wound care and imaging reviewed. Patient has 2 necrotic areas at the plantar aspect of the left foot at the 1st and 3rd metatarsal which was not present upon admission
Discussed with vascular
CTA with runoff with Patent bilateral SFA stents. Moderate stenoses through the proximal right superficial femoral artery. Evaluation of calf arteries and distal blood flow markedly limited especially with this imaging modality with at least single
vessel runoff on the right than the right lower extremity via the posterior tibial artery
Consideration of CT angiogram early next week. Hold Lasix anticipating contrast exposure
Left leg cellulitis with improved erythema and induration
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
Urinalysis unremarkable
Continue Plavix
Toxic metabolic cephalopathy
Treat above
Aspiration precautions
Monitor mental status closely.
Mental status improved
Essential hypertension
Lasix had been held since admission due to soft BP and dehydration as well as in anticipation to contrast exposure with CTA and possible angiogram
Continue Coreg with caution and with holding parameters
Type 2 diabetes
Improving hemoglobin A1c.
Carbohydrate controlled diet.
Jardiance
Basal bolus protocol
BPH.
Monitor for retention
Continue Flomax
Reactive thrombocytosis
monitor
Mild hyponatremia
recurrent
monitor BMPand restart Lasix as hypokalemia resolved
follow Mg
Full code.
Anticipated Discharge: > 48 hours
Subjective/Interval History
-
Date of Service: January 17, 2025
Objective Data
-
Labs:
Laboratory Results
01/17/25
12:08
WBC 11.6 H
Hgb 10.7 L
Hct 33.0 L
Plt Count 428 H
Sodium 132 L
Potassium 4.3 D
Chloride 102
Carbon Dioxide 23
BUN 21 H
Creatinine 0.6 L
Glucose 277 H
Calcium 8.7
Vital Signs:
Vital Signs
Temp Pulse Resp BP Pulse Ox
97.6 F 62 15 130/86 95
01/17/25 08:43 01/17/25 08:43 01/17/25 08:43 01/17/25 08:43 01/16/25 23:50
I&O
01/16/25 01/17/25 01/18/25
06:59 06:59 06:59
Intake Total 820 / 820 1374 / 1374
Output Total 0 / 0
Balance 820 / 820 1374 / 1374
Review of Systems
-
Unable to obtain full review of systems at this time due to: Dementia
History Source: Patient
Physical Exam
-
General: No Apparent Distress
HEENT: Normocephalic
Cardiac: Regular Rhythm
GI: Soft, Nontender and Nondistended
Musculoskeletal: No Clubbing, No Cyanosis and Other (b/l LE wounds in dressing)
Skin: Warm
Neuro: Awake, Alert and Oriented
Psych: Calm and Apparent Dementia
[2025-01-17] MEDS: LASIX 20 MG PO (14:26)
[2025-01-17 16:07] VITALS: BP 126/57
[2025-01-17 16:57] LABS: Glucose - Point of Care 337 mg/dl (70-99)
[2025-01-17] MEDS: NOVOLOG FLEXPEN-LOW RESISTANCE 4 UNITS SC (17:18)
[2025-01-17] MEDS: LIPITOR 10 MG PO (21:03)
[2025-01-17 21:23] LABS: Glucose - Point of Care 315 mg/dl (70-99)
[2025-01-17] MEDS: NOVOLOG FLEXPEN 4 UNITS SC (22:05)
[2025-01-17 23:00] VITALS: BP 115/49
--- NOTE | 2025-01-18 01:45 | PTCARENOTE ---
patient was offered oral care multiple times but refused.
[2025-01-18] MEDS: ZOSYN 50 IV ×4 (02:00→20:08)
[2025-01-18] MEDS: VANCOCIN 530 MG IV (05:55)
[2025-01-18 06:00] VITALS: BMI 30.9
[2025-01-18 07:42] LABS: Glucose - Point of Care 225 mg/dl (70-99)
[2025-01-18 07:45] VITALS: BP 120/47
[2025-01-18] MEDS: FARXIGA 10 MG PO (08:46)
[2025-01-18] MEDS: PLAVIX 75 MG PO (08:46)
[2025-01-18] MEDS: LASIX 20 MG PO (08:46)
[2025-01-18] MEDS: LOW STRENGTH ASPIRIN 81 MG PO (08:46)
[2025-01-18] MEDS: COREG 25 MG PO ×2 (08:46→20:08)
[2025-01-18] MEDS: FLOMAX 0.4 MG PO (08:46)
[2025-01-18] MEDS: HEPARIN 5000 UNITS SC ×2 (08:46→17:43)
[2025-01-18] MEDS: NOVOLOG FLEXPEN-LOW RESISTANCE 2 UNITS SC (08:47)
[2025-01-18 10:31] LABS: ALT (SGPT) 15 U/L (0-50); AST (SGOT) 14 U/L (17-59); Albumin 2.7 g/dl (3.5-5.0); Alkaline Phosphatase 56 U/L (38-126); Blood Urea Nitrogen 24 mg/dl (9-20); Calcium 8.5 mg/dl (8.4-10.2); Carbon Dioxide 24 mmol/L (22-30); Chloride 105 mmol/L (98-107); Estimated Creatinine Clearance 106 ml/min; Glucose 274 mg/dl (70-99); Hematocrit 29.1 % (39.0-52.0); Hemoglobin 9.5 g/dL (13.0-18.0); Magnesium 2.0 mg/dl (1.6-2.3); Mean Corp Hgb Conc. 32.6 g/dL (33.0-37.0); Mean Corpuscular Volume 84.3 fL (80.0-94.0); Nucleated Red Blood Cells % 0 % (-); Platelet Count 429 10^3/uL (130-400); Potassium 3.8 mmol/L (3.5-5.1); Red Cell Dist. Width 15.5 % (11.5-14.5); Sodium 132 mmol/L (135-145); Total Protein 5.3 g/dl (6.3-8.2); eGFR > 60.00
--- NOTE | 2025-01-18 10:51 | PHA.VAN.FU ---
Vancomycin Assessment / Plan
- Assessment
Renal Function: Stable
WBC's are: Stable
In the past 24 hrs, patient has been: Afebrile
Concomitant Antimicrobials: ZOSYN
- Assessment - Therapeutic Drug Monitoring
Extrapolated Cmax (mcg/mL): 21.3
Peak level was drawn: Appropriately (2.5HRS AFTER INFUSION ENDED)
- Dosing Plan
Continue: 1500MG Q24H
- Monitoring Plan
Trough Level: 01/19 @0530
- Follow Up
Pharmacy will continue to follow.
Vancomycin Follow UP
- -
Patient Age: 79
Patient Sex: Male
Vancomycin Day #: 5
Indication: Skin And Soft Tissue
Requesting Provider: Dr. Sutton
Pertinent Antimicrobial Allergies:
no pertinent antibiotic allergies
Height / Weight:
Height 5 ft 6 in
Actual Weight 86.682 kg
Pertinent Past Medical History: CKD, DM 2
- Vital Signs / Lab Results
Temp Pulse Resp BP Pulse Ox
97.6 F 75 16 120/47 96
01/18/25 07:45 01/18/25 07:45 01/18/25 07:45 01/18/25 07:45 01/18/25 07:45
Lab Results - Hematology
01/15/25 01/16/25 01/17/25
12:43 11:41 12:08
WBC 14.8 H 11.6 H 11.6 H
01/18/25
10:04
WBC 11.9 H
Lab Results - Chemistry
01/15/25 01/16/25 01/17/25
12:43 11:41 12:08
BUN 25 H 21 H 21 H
Creatinine 0.7 0.7 0.6 L
Estimated Creat Clear 80 80 93
Albumin
01/18/25
10:04
BUN 24 H
Creatinine 0.6 L
Estimated Creat Clear 106
Albumin 2.7 L
Therapeutic Drug Monitoring
Vancomycin Peak 21.3 ug/ml (18-26) 01/18/25 10:04
--- NOTE | 2025-01-18 12:33 | W.PN.HOSP.TC ---
Today's Communication/Plan
-
cont Abx
increase insulin
now on Lasix - potassium WNL - cont to monitor
Assessment / Plan
Assessment / Plan
IMPRESSION:
Left lower extremity cellulitis with mild purulence (multiple superficial wounds)
Sepsis present on admission secondary to above
Toxic metabolic encephalopathy secondary to sepsis
Hypokalemia
Hypovolemic hyponatremia
Dementia, unspecified
Conditions prior to admission
PAD with prior history of lower extremity revascularization bilaterally.
Type 2 diabetes.
Essential hypertension.
GERD.
BPH baseline obstructive sleep apnea.
Protein calorie malnutrition, mild to moderate.
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
PLAN:
Sepsis secondary to left lower extremity cellulitis complicated with mild superficial wounds/purulence in the settings of severe PAD.
Cannot exclude infected sacral wound
On exam palpable peripheral pulses, warm left foot with no peripheral/toe ulcers or necrosis.
Vascular surgery input appreciated. Clinically no evidence of critical ischemia
Recent arterial studies reviewed.
Repeated arterial ultrasound with no significant changes
Empiric antibiotics: Vancomycin/Zosyn
Blood cultures negative to date
01/16 wound care and imaging reviewed. Patient has 2 necrotic areas at the plantar aspect of the left foot at the 1st and 3rd metatarsal which was not present upon admission
Discussed with vascular
CTA with runoff with Patent bilateral SFA stents. Moderate stenoses through the proximal right superficial femoral artery. Evaluation of calf arteries and distal blood flow markedly limited especially with this imaging modality with at least single
vessel runoff on the right than the right lower extremity via the posterior tibial artery
Consideration of CT angiogram early next week. Hold Lasix anticipating contrast exposure
Left leg cellulitis with improved erythema and induration
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
Urinalysis unremarkable
Continue Plavix
Toxic metabolic cephalopathy superimposed on chronic dementia
Patient frequently delusional, poor memory, but can convey conversation with appropriate speech, while spoken in Ghanaian, no dysarthria or dysphasia noticed
Treat infection
Aspiration precautions
Monitor mental status closely.
Mental status improved
Essential hypertension
Lasix had been held since admission due to soft BP and dehydration as well as in anticipation to contrast exposure with CTA and possible angiogram
Continue Coreg with caution and with holding parameters
Type 2 diabetes
Improving hemoglobin A1c.
Poor glycemic control in hospital - increase SS to moderate and start Lantus 10units daily
Carbohydrate controlled diet.
Jardiance
Basal bolus protocol
BPH.
Monitor for retention
Continue Flomax
Reactive thrombocytosis
monitor
Mild hyponatremia
recurrent
monitor BMP and restart Lasix as hypokalemia resolved
follow Mg
Full code.
Anticipated Discharge: > 48 hours
Subjective/Interval History
-
Date of Service: January 18, 2025
Objective Data
-
Labs:
Laboratory Results
01/18/25
10:04
WBC 11.9 H
Hgb 9.5 L
Hct 29.1 L
Plt Count 429 H
Sodium 132 L
Potassium 3.8
Chloride 105
Carbon Dioxide 24
BUN 24 H
Creatinine 0.6 L
Glucose 274 H
Calcium 8.5
Total Bilirubin 0.4
AST 14 L
ALT 15
Alkaline Phosphatase 56
Vital Signs:
Vital Signs
Temp Pulse Resp BP Pulse Ox
97.6 F 75 16 120/47 96
01/18/25 07:45 01/18/25 07:45 01/18/25 07:45 01/18/25 07:45 01/18/25 07:45
I&O
01/17/25 01/18/25 01/19/25
06:59 06:59 06:59
Intake Total 1374 / 1374 800 / 800
Output Total 0 / 0 1600 / 1600
Balance 1374 / 1374 -800 / -800
Review of Systems
-
Unable to obtain full review of systems at this time due to: Dementia
Physical Exam
-
General: No Apparent Distress
GI: Soft, Nontender and Nondistended
Neuro: Awake and Alert
Psych: Apparent Dementia
[2025-01-18 12:36] LABS: Glucose - Point of Care 266 mg/dl (70-99)
[2025-01-18] MEDS: NOVOLOG FLEXPEN-LOW RESISTANCE 3 UNITS SC (13:30)
[2025-01-18] MEDS: LANTUS 0.1 UNITS SC (13:31)
[2025-01-18 15:22] VITALS: BP 129/56
[2025-01-18] MEDS: TYLENOL 650 MG PO (17:44)
[2025-01-18] MEDS: NOVOLOG FLEXPEN-MODERATE RESISTANCE 7 UNITS SC (17:48)
[2025-01-18 17:50] LABS: Glucose - Point of Care 319 mg/dl (70-99)
[2025-01-18 21:48] LABS: Glucose - Point of Care 314 mg/dl (70-99)
[2025-01-18] MEDS: LIPITOR 10 MG PO (22:39)
[2025-01-18] MEDS: NOVOLOG FLEXPEN 7 UNITS SC (22:43)
[2025-01-18 23:07] VITALS: BP 137/55
[2025-01-19] MEDS: HEPARIN SC (00:10)
[2025-01-19] MEDS: ZOSYN IV (02:20)
[2025-01-19] MEDS: ZOSYN 50 IV ×4 (02:42→21:10)
[2025-01-19 05:09] VITALS: BMI 31.0
[2025-01-19] MEDS: VANCOCIN 530 MG IV (05:33)
[2025-01-19 05:45] LABS: Hematocrit 30.8 % (39.0-52.0); Hemoglobin 10.4 g/dL (13.0-18.0); Mean Corp Hgb Conc. 33.8 g/dL (33.0-37.0); Mean Corpuscular Volume 84.8 fL (80.0-94.0); Nucleated Red Blood Cells % 0 % (-); Platelet Count 439 10^3/uL (130-400); Red Cell Dist. Width 15.1 % (11.5-14.5)
[2025-01-19 06:02] LABS: ALT (SGPT) 18 U/L (0-50); AST (SGOT) 19 U/L (17-59); Albumin 2.9 g/dl (3.5-5.0); Alkaline Phosphatase 64 U/L (38-126); Blood Urea Nitrogen 21 mg/dl (9-20); Calcium 9.0 mg/dl (8.4-10.2); Carbon Dioxide 28 mmol/L (22-30); Chloride 105 mmol/L (98-107); Estimated Creatinine Clearance 91 ml/min; Glucose 148 mg/dl (70-99); Potassium 4.2 mmol/L (3.5-5.1); Sodium 134 mmol/L (135-145); Total Protein 5.7 g/dl (6.3-8.2); eGFR > 60.00
[2025-01-19 07:02] LABS: Glucose - Point of Care 175 mg/dl (70-99)
[2025-01-19 07:35] VITALS: BP 165/68
--- NOTE | 2025-01-19 08:36 | PHA.VAN.FU ---
Vancomycin Assessment / Plan
- Assessment
Renal Function: Stable
WBC's are: Trending Up
In the past 24 hrs, patient has been: Afebrile
Concomitant Antimicrobials: piperacillin/tazobactam
- Assessment - Therapeutic Drug Monitoring
Extrapolated Cmax (mcg/mL): 21.3
Peak level was drawn: Appropriately (01/18 @ 10:04 (approx. 2.5 hours after end of infusion))
Extrapolated Cmin (mcg/mL): 10.3
Trough Drawn: Appropriately (01.19 @ 05:20)
Calculated AUC (mcg*h/mL): 382
Calculated ke: 0.0377
Calculated half life (H): 18.4
Calculated Vd (L): 104.04
Calculated Vanc CL (ml/min): 65.39
- Dosing Plan
Adjust Regimen to: vanco 500 mg x 1 on 01/19 then vanco 1750mg Q24H starting on 01/20
New Regimen Predicts: AUC (463), Peak (28.2), Trough (12.3)
- Monitoring Plan
No level(s) ordered at this time: consider levels in next few days
- Follow Up
Pharmacy will continue to follow.
Vancomycin Follow UP
- -
Patient Age: 79
Patient Sex: Male
Vancomycin Day #: 6
Indication: Skin And Soft Tissue
Requesting Provider: Dr. Sutton
Pertinent Antimicrobial Allergies:
no pertinent antibiotic allergies
Height / Weight:
Height 5 ft 6 in
Actual Weight 87.118 kg
Pertinent Past Medical History: CKD, DM 2
- Vital Signs / Lab Results
Temp Pulse Resp BP Pulse Ox
97.9 F 74 18 165/68 98
01/19/25 07:35 01/19/25 07:35 01/19/25 07:35 01/19/25 07:35 01/19/25 07:35
Lab Results - Hematology
01/16/25 01/17/25 01/18/25
11:41 12:08 10:04
WBC 11.6 H 11.6 H 11.9 H
01/19/25
05:20
WBC 12.0 H
Lab Results - Chemistry
01/16/25 01/17/25 01/18/25
11:41 12:08 10:04
BUN 21 H 21 H 24 H
Creatinine 0.7 0.6 L 0.6 L
Estimated Creat Clear 80 93 106
Albumin 2.7 L
01/19/25
05:20
BUN 21 H
Creatinine 0.7
Estimated Creat Clear 91
Albumin 2.9 L
Therapeutic Drug Monitoring
Vancomycin Peak 21.3 ug/ml (18-26) 01/18/25 10:04
Vancomycin Trough 10.3 ug/ml (5-20) 01/19/25 05:20
[2025-01-19] MEDS: NOVOLOG FLEXPEN-MODERATE RESISTANCE 1 UNITS SC (08:48)
[2025-01-19] MEDS: LANTUS 0.1 UNITS SC (08:48)
[2025-01-19] MEDS: FARXIGA 10 MG PO (08:49)
[2025-01-19] MEDS: FLOMAX 0.4 MG PO (08:49)
[2025-01-19] MEDS: LOW STRENGTH ASPIRIN 81 MG PO (08:49)
[2025-01-19] MEDS: LASIX 20 MG PO (08:49)
[2025-01-19] MEDS: COREG 25 MG PO ×2 (08:50→21:10)
[2025-01-19] MEDS: PLAVIX 75 MG PO (08:50)
[2025-01-19] MEDS: HEPARIN 5000 UNITS SC ×3 (08:50→23:58)
[2025-01-19 08:55] VITALS: BP 138/65
[2025-01-19] MEDS: DRISDOL (VITAMIN D2) PO ×2 (10:30→10:39)
[2025-01-19] MEDS: VANCOCIN HCL 500 MG 100 IV (10:30)
[2025-01-19 11:29] LABS: Glucose - Point of Care 205 mg/dl (70-99)
[2025-01-19] MEDS: NOVOLOG FLEXPEN-MODERATE RESISTANCE 3 UNITS SC (12:29)
--- NOTE | 2025-01-19 12:51 | PN.CDI ---
CDI
- -
CDI:
Physician Documentation Request
Admit Date: 01/14/25 14:50
Dear Doctor Emilee,
Please review the following and provide your response in the progress notes.
Clinical Indicators:
Pt admitted with Sepsis 2/2 Cellulitis of lower extremity
Documented per nursing wound care note 01/14, ' Present on admission left posterior heel pressure injury stage 1 ...silicone border....present on admission sacrum pressure injury stage 4 ...suspect to muscle...silicone border ...'
Physician documentation of the type and location of wounds is required for compliant documentation. Based on the above clinical findings and your assessment, please provide the following in your progress note:
1. Location of the ulcer/wound, including laterality.( FOR EACH WOUND)
2. Type (etiology) of ulcer/wound:
- Pressure (decubitus) ulcer
- Non-pressure ulcer
- Other ( please specify)
Use of terms such as suspected, likely, concern for, or probable (associated with a specific diagnosis that is being evaluated, monitored, or treated as if it exists) are acceptable and can be coded in the inpatient setting, when documented at the
time of discharge.
Thank you,
Cande Parsons RN
CDI Specialist
[place] [facility]
Please use your independent medical judgment in providing your response.
*Source: National Pressure Ulcer Advisory Panel (NPUAP)
--- NOTE | 2025-01-19 12:53 | PN.CDI ---
CDI
- -
CDI:
Physician Documentation Request
Admit Date: 01/14/25 14:50
Dear Doctor ,
Please review the following and provide your response in the progress notes.
Clinical Indicators:
Pt admitted with Sepsis 2/2 Cellulitis of lower extremity
Documented per nursing wound care note 01/14, ' Present on admission left posterior heel pressure injury stage 1 ...silicone border....present on admission sacrum pressure injury stage 4 ...suspect to muscle...silicone border ...'
Physician documentation of the type and location of wounds is required for compliant documentation. Based on the above clinical findings and your assessment, please provide the following in your progress note:
1. Location of the ulcer/wound, including laterality.( FOR EACH WOUND)
2. Type (etiology) of ulcer/wound:
- Pressure (decubitus) ulcer
- Non-pressure ulcer
- Other ( please specify)
Use of terms such as suspected, likely, concern for, or probable (associated with a specific diagnosis that is being evaluated, monitored, or treated as if it exists) are acceptable and can be coded in the inpatient setting, when documented at the
time of discharge.
Thank you,
Cande Parsons RN
CDI Specialist
[place] [facility]
Please use your independent medical judgment in providing your response.
*Source: National Pressure Ulcer Advisory Panel (NPUAP)
--- NOTE | 2025-01-19 14:54 | WOUNDNOTE ---
L FOOT (MEDIAL PLANTAR)
--- NOTE | 2025-01-19 14:55 | WOUNDNOTE ---
Andrew KOO ([facility])
--- NOTE | 2025-01-19 14:56 | WOUNDNOTE ---
Andrew KOO ([facility])
--- NOTE | 2025-01-19 14:56 | WOUNDNOTE ---
R CALF/ANKLE (LATERAL POSTERIOR)
--- NOTE | 2025-01-19 14:57 | WOUNDNOTE ---
L ANKLE/CALF (POSTERIOR LATERAL)
--- NOTE | 2025-01-19 14:57 | WOUNDNOTE ---
L CALF (LATERAL POSTERIOR)
--- NOTE | 2025-01-19 15:19 | WOUNDNOTE ---
WO RN Note: Patient incontinent of copious urine and large amount of soft mushy brown stool. Assisted nursing with [facility] (RN [place], PCT [place], PCT [place]). Sacral wound care done. LE dressings changed. Protective heel foam dressings changed by RN
Regina. L foot less red, some swelling remains in L foot. L medial 1st MTH purple area evolving to black ecchymotic area. L plantar 2nd toe tip and L plantar 3rd MTH purple area same. Heel skin same. Leg ulcers same except more tendon exposed L lateral
ankle ulcer, thick necrotic scab came off R upper pfeiffer and is full thickness. [place] texted Dr. Sutton and Isabell Morales Vascular PA R upper pfeiffer and L lateral posterior ankle pics stating 'the rest of the wound pics are in the electronic chart. His
L lateral lower calf wound has more tendon exposed, the R upper pfeiffer thick scab/dry necrotic area came off and some hard small off white pieces came out too. His L foot is less red and still somewhat swollen. Suspect Achilles and lateral calf/ankle
wounds have poor healing potential r/t PAD, muscle waisting and pressure. I think it would be better to off load his calves and heels with an air chair cushion instead of the fiber filled boots. Especially d/t the purple areas on L plantar foot/2nd
toe and purple/black area medial L forefoot'. Dr. Sutton agreeable to change in heel/calf off loading and change in L foot local care. Isabell Morales Vascular PA stated she and Dr. Millan plan to top by/call daughter re: plan from their perspective.
Care plan to be updated. Instructed how to off load patient's heel/calves with air chair cushions instead of the TruVue lite boots. Discussed with nursing. Will follow as needed.
[2025-01-19 15:20] VITALS: BP 121/48
[2025-01-19 16:17] LABS: Glucose - Point of Care 317 mg/dl (70-99)
[2025-01-19] MEDS: NOVOLOG FLEXPEN-MODERATE RESISTANCE 7 UNITS SC (16:17)
--- NOTE | 2025-01-19 16:25 | W.PN.HOSP.TC ---
Today's Communication/Plan
-
Continue antibiotics per
Continue wound care.
Vascular surgery evaluation.
Basal bolus protocol adjusting diabetes regimen
Assessment / Plan
Assessment / Plan
IMPRESSION:
Left lower extremity cellulitis with mild purulence (multiple superficial wounds)
Sepsis present on admission secondary to above
Toxic metabolic encephalopathy secondary to sepsis
Hypokalemia
Hypovolemic hyponatremia
Dementia, unspecified
Conditions prior to admission
PAD with prior history of lower extremity revascularization bilaterally.
Type 2 diabetes.
Essential hypertension.
GERD.
BPH baseline obstructive sleep apnea.
Protein calorie malnutrition, mild to moderate.
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
Chronic ambulatory disorder, bedridden assisted resident
PLAN:
Sepsis secondary to left lower extremity cellulitis complicated with mild superficial wounds/purulence in the settings of severe PAD.
Cannot exclude infected sacral wound
On exam palpable peripheral pulses, warm left foot with no peripheral/toe ulcers or necrosis.
Vascular surgery input appreciated. Clinically no evidence of critical ischemia
Recent arterial studies reviewed.
Repeated arterial ultrasound with no significant changes
Empiric antibiotics: Vancomycin/Zosyn
Blood cultures negative to date
01/16 wound care and imaging reviewed. Patient has 2 necrotic areas at the plantar aspect of the left foot at the 1st and 3rd metatarsal which was not present upon admission
Discussed with vascular
CTA with runoff with Patent bilateral SFA stents. Moderate stenoses through the proximal right superficial femoral artery. Evaluation of calf arteries and distal blood flow markedly limited especially with this imaging modality with at least single
vessel runoff on the right than the right lower extremity via the posterior tibial artery
Consideration of CT angiogram early next week.
Left leg cellulitis with improved erythema and induration
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
Urinalysis unremarkable
Continue Plavix
Toxic metabolic cephalopathy superimposed on chronic dementia
Patient frequently delusional, poor memory, but can convey conversation with appropriate speech, while spoken in Danish, no dysarthria or dysphasia noticed
Treat infection
Aspiration precautions
Monitor mental status closely.
Mental status improved
Essential hypertension
Lasix had been held since admission due to soft BP and dehydration as well as in anticipation to contrast exposure with CTA and possible angiogram
Continue Coreg with caution and with holding parameters
Type 2 diabetes
Corticosteroid induced hyperglycemia. Corticosteroids given on 01/16 for IV contrast allergy prep
Improving hemoglobin A1c.
Initiated on Lantus
Continue Farxiga
Basal bolus protocol adjusting daily
Carbohydrate controlled diet.
Jardiance
Basal bolus protocol
BPH.
Monitor for retention
Continue Flomax
Reactive thrombocytosis
monitor
Mild hyponatremia
recurrent
monitor BMP and restart Lasix as hypokalemia resolved
follow Mg
Full code.
Anticipated Discharge: 24 - 48 hours
Subjective/Interval History
-
Date of Service: January 19, 2025
Objective Data
-
Labs:
Laboratory Results
01/19/25
05:20
WBC 12.0 H
Hgb 10.4 L
Hct 30.8 L
Plt Count 439 H
Sodium 134 L
Potassium 4.2
Chloride 105
Carbon Dioxide 28
BUN 21 H
Creatinine 0.7
Glucose 148 H
Calcium 9.0
Total Bilirubin 0.5
AST 19
ALT 18
Alkaline Phosphatase 64
Vital Signs:
Vital Signs
Temp Pulse Resp BP Pulse Ox
97.5 F 79 18 121/48 95
01/19/25 15:20 01/19/25 15:20 01/19/25 15:20 01/19/25 15:20 01/19/25 15:48
I&O
01/18/25 01/19/25 01/20/25
06:59 06:59 06:59
Intake Total 800 / 800 1420 / 1420
Output Total 1600 / 1600 3650 / 3650
Balance -800 / -800 -2229 / -2229
Physical Exam
-
General: Well Developed and No Apparent Distress
HEENT: Normocephalic, Atraumatic and Moist Mucous Membranes
Respiratory: Clear to Auscultation
Cardiac: Regular Rhythm and S1/S2; Negative Murmur, Rub or Gallop
GI: Soft, Nontender, Nondistended and Normal Bowel Sounds; Negative Organomegaly
Rectal: Deferred by Provider
Musculoskeletal: No Clubbing, No Cyanosis and No Edema
Skin: Negative Rash
Neuro: Nonfocal/Grossly Intact
--- NOTE | 2025-01-19 18:20 | W.PN.VS ---
Today's Communication / Plan
-
Plan reviewed with Dr. Millan.
Assessment/Plan
-
Assessment: 79-year-old male with nonhealing lower extremity wounds bilaterally, left worse than right with evidence of peripheral arterial disease
Plan:
Recommend proceeding with left lower extremity angiogram, reviewed recommendation with daughter via telephone. We offered to do angiogram on Sunday (01/21/25) but per daughter's request she asked that we change to so that she may be
present. So we will tentatively plan for left lower extremity angiogram on 01/22/2025.
N.p.o. at midnight on 01/22
Plan relayed to hospitalist via [place] text
Subjective Data
-
Date of Service: January 19, 2025
Patient seen at bedside, offers no complaints. Resting in bed comfortably eating yogurt.
Objective Data
-
Vital Signs
Temp Pulse Resp BP Pulse Ox
97.5 F 79 18 121/48 95
01/19/25 15:20 01/19/25 15:20 01/19/25 15:20 01/19/25 15:20 01/19/25 15:48
Intake and Output
01/18/25 01/19/25 01/20/25
06:59 06:59 06:59
Intake Total 800 / 800 1420 / 1420 1000 / 1000
Output Total 1600 / 1600 3650 / 3650
Balance -800 / -800 -2230 / -2230 1000 / 1000
Intake:
Oral fluids 800 / 800 1420 / 1420 900 / 900
IV fluids (Total) 0 / 0
IV piggybacks 0 / 0 100 / 100
Output:
UrineToshiaey 1600 / 1600
Urine, Voided 3650 / 3650
Other:
How many times incontinent 1 1 4
SATURATED amount urine
Lab Results
07/21/25 05:20
01/19/25 05:20
Calcium 9.0 mg/dl (8.4-10.2) 01/19/25 05:20
Magnesium 2.0 mg/dl (1.6-2.3) 01/18/25 10:04
Total Bilirubin 0.5 mg/dl (0.2-1.3) 01/19/25 05:20
AST 19 U/L (17-59) 01/19/25 05:20
ALT 18 U/L (0-50) 01/19/25 05:20
Alkaline Phosphatase 64 U/L (38-126) 01/19/25 05:20
Total Protein 5.7 g/dl (6.3-8.2) L 01/19/25 05:20
Albumin 2.9 g/dl (3.5-5.0) L 01/19/25 05:20
Physical Exam
-
NAD
No tachypnea on room air
No tachycardia
Abdomen soft
[2025-01-19] MEDS: LIPITOR 10 MG PO (21:10)
[2025-01-19 21:29] LABS: Glucose - Point of Care 276 mg/dl (70-99)
[2025-01-19 23:22] VITALS: BP 110/50
--- NOTE | 2025-01-20 02:28 | DOWNTIME ---
There was a Mtime Client Elevator Builder Downtime on 01/20/2025 from 0100 to 01/20/2025 at 0220. Downtime documentation of patient's care, including medication administrations, has been reconciled in the electronic record per guidelines. Refer to the
patient's paper chart under the miscellaneous tab to see printed paper medication records and downtime forms.
[2025-01-20] MEDS: ZOSYN 50 IV ×4 (02:36→20:44)
[2025-01-20] MEDS: VANCOCIN 535 MG IV (06:05)
[2025-01-20 06:10] VITALS: BMI 31.1
[2025-01-20 07:00] VITALS: BP 122/58
--- NOTE | 2025-01-20 07:17 | W.PN.UPDATE ---
Update Note
Progress Note Update
Patient seen and examined
Spoke with daughter
CTA personally reviewed
Planning for LLE arteriogram and possible endo intervention. Technical aspects, risks/benefits discussed with patient and his daughter. Risks discussed with patient and daughter including but not limited to bleeding, access site injury, contrast
nephropathy, distal embolization, inability to successfully complete endo intervention and the need for additional procedures.
Both Tristan Hernandez and his daughter agree to proceed.
[id number]
Vascular Surgery
[2025-01-20 07:27] LABS: Hematocrit 28.8 % (39.0-52.0); Hemoglobin 9.7 g/dL (13.0-18.0); Mean Corp Hgb Conc. 33.7 g/dL (33.0-37.0); Mean Corpuscular Volume 83.2 fL (80.0-94.0); Platelet Count 480 10^3/uL (130-400); Red Cell Dist. Width 15.0 % (11.5-14.5)
[2025-01-20 07:40] LABS: Glucose - Point of Care 240 mg/dl (70-99)
[2025-01-20 07:58] LABS: Blood Urea Nitrogen 21 mg/dl (9-20); Calcium 8.7 mg/dl (8.4-10.2); Carbon Dioxide 26 mmol/L (22-30); Chloride 102 mmol/L (98-107); Estimated Creatinine Clearance 107 ml/min; Glucose 223 mg/dl (70-99); Potassium 4.7 mmol/L (3.5-5.1); Sodium 132 mmol/L (135-145); eGFR > 60.00
[2025-01-20] MEDS: NOVOLOG FLEXPEN-MODERATE RESISTANCE 3 UNITS SC ×2 (08:33→17:17)
[2025-01-20] MEDS: LOW STRENGTH ASPIRIN 81 MG PO (08:36)
[2025-01-20] MEDS: LASIX 20 MG PO (08:36)
[2025-01-20] MEDS: PLAVIX 75 MG PO (08:37)
[2025-01-20] MEDS: COREG 25 MG PO ×2 (08:37→20:44)
[2025-01-20] MEDS: FLOMAX 0.4 MG PO (08:37)
[2025-01-20] MEDS: FARXIGA 10 MG PO (08:37)
[2025-01-20] MEDS: HEPARIN 5000 UNITS SC ×2 (08:37→17:17)
[2025-01-20 08:41] LABS: Nucleated Red Blood Cells % 0.1 % (-)
[2025-01-20] MEDS: LANTUS 0.1 UNITS SC (08:42)
[2025-01-20 11:51] LABS: Glucose - Point of Care 307 mg/dl (70-99)
--- NOTE | 2025-01-20 13:35 | PHA.VAN.FU ---
Vancomycin Assessment / Plan
- Assessment
Renal Function: Stable
WBC's are: Trending Up
In the past 24 hrs, patient has been: Afebrile
Concomitant Antimicrobials: piperacillin/tazobactam
- Dosing Plan
Continue: Vanc 1750mg Q24H (adjusted 01/19)
Based on half-life, patient may not fully have been at steady state with levels and may have additional accumulation
Will continue adjusted regimen for now - follow renal function and vascular surgery plans
- Monitoring Plan
No level(s) ordered at this time: consider levels in next few days
- Follow Up
Pharmacy will continue to follow.
Vancomycin Follow UP
- -
Patient Age: 79
Patient Sex: Male
Vancomycin Day #: 7
Indication: Skin And Soft Tissue
Requesting Provider: Dr. Sutton
Pertinent Antimicrobial Allergies:
no pertinent antibiotic allergies
Height / Weight:
Height 5 ft 6 in
Actual Weight 87.347 kg
Pertinent Past Medical History: CKD, DM 2
- Vital Signs / Lab Results
Temp Pulse Resp BP Pulse Ox
97.6 F 75 17 122/58 98
01/20/25 07:00 01/20/25 08:36 01/20/25 07:00 01/20/25 08:36 01/20/25 07:00
Lab Results - Hematology
01/18/25 01/19/25 01/20/25
10:04 05:20 06:49
WBC 11.9 H 12.0 H 13.7 H
Lab Results - Chemistry
01/18/25 01/19/25 01/20/25
10:04 05:20 06:49
BUN 24 H 21 H 21 H
Creatinine 0.6 L 0.7 0.6 L
Estimated Creat Clear 106 91 107
Albumin 2.7 L 2.9 L
Therapeutic Drug Monitoring
Vancomycin Peak 21.3 ug/ml (18-26) 01/18/25 10:04
Vancomycin Trough 10.3 ug/ml (5-20) 01/19/25 05:20
[2025-01-20] MEDS: NOVOLOG FLEXPEN-MODERATE RESISTANCE 7 UNITS SC (13:39)
[2025-01-20] MEDS: TYLENOL 650 MG PO (14:12)
[2025-01-20 15:00] VITALS: BP 116/47
--- NOTE | 2025-01-20 15:43 | VATNOTE ---
01/20/25 - R arm cephalic 22g IV infiltrated with zosyn. Mild pain to site. IV Removed. Pt without IV access at this time as pt is refusing to restart. Pt educated for importance of IV line, still refusing. MD team made aware.
--- NOTE | 2025-01-20 17:04 | W.PN.HOSP.TC ---
Today's Communication/Plan
-
Angio with revascularization attempt on 01/21
IV antibiotics and wound care
Adjust insulin regimen with ongoing hyperglycemia
Assessment / Plan
Assessment / Plan
IMPRESSION:
Left lower extremity cellulitis with mild purulence (multiple superficial wounds)
Sepsis present on admission secondary to above
Toxic metabolic encephalopathy secondary to sepsis
Hypokalemia
Hypovolemic hyponatremia
Dementia, unspecified
Conditions prior to admission
PAD with prior history of lower extremity revascularization bilaterally.
Type 2 diabetes.
Essential hypertension.
GERD.
BPH baseline obstructive sleep apnea.
Protein calorie malnutrition, mild to moderate.
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
Chronic ambulatory disorder, bedridden assisted resident
PLAN:
Sepsis secondary to left lower extremity cellulitis complicated with mild superficial wounds/purulence in the settings of severe PAD.
Cannot exclude infected sacral wound
On exam palpable peripheral pulses, warm left foot with no peripheral/toe ulcers or necrosis.
Vascular surgery input appreciated. Clinically no evidence of critical ischemia
Recent arterial studies reviewed.
Repeated arterial ultrasound with no significant changes
Empiric antibiotics: Vancomycin/Zosyn
Blood cultures negative to date
01/16 wound care and imaging reviewed. Patient has 2 necrotic areas at the plantar aspect of the left foot at the 1st and 3rd metatarsal which was not present upon admission
Discussed with vascular
CTA with runoff with Patent bilateral SFA stents. Moderate stenoses through the proximal right superficial femoral artery. Evaluation of calf arteries and distal blood flow markedly limited especially with this imaging modality with at least single
vessel runoff on the right than the right lower extremity via the posterior tibial artery
Consideration of CT angiogram early next week.
Left leg cellulitis with improved erythema and induration
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
Urinalysis unremarkable
Continue Plavix
Toxic metabolic cephalopathy superimposed on chronic dementia
Patient frequently delusional, poor memory, but can convey conversation with appropriate speech, while spoken in Samoan, no dysarthria or dysphasia noticed
Treat infection
Aspiration precautions
Monitor mental status closely.
Mental status improved
Essential hypertension
Lasix had been held since admission due to soft BP and dehydration as well as in anticipation to contrast exposure with CTA and possible angiogram
Continue Coreg with caution and with holding parameters
Type 2 diabetes
Corticosteroid induced hyperglycemia. Corticosteroids given on 01/16 for IV contrast allergy prep
Improving hemoglobin A1c.
Initiated on Lantus with addition of AC aspart
Continue Farxiga
Basal bolus protocol adjusting daily
Carbohydrate controlled diet.
Jardiance
Basal bolus protocol
BPH.
Monitor for retention
Continue Flomax
Reactive thrombocytosis
monitor
Mild hyponatremia
recurrent
monitor BMP and restart Lasix as hypokalemia resolved
follow Mg
Full code.
Anticipated Discharge: > 48 hours
Subjective/Interval History
-
Date of Service: January 20, 2025
Objective Data
-
Labs:
Laboratory Results
01/20/25
06:49
WBC 13.7 H
Hgb 9.7 L
Hct 28.8 L
Plt Count 480 H
Sodium 132 L
Potassium 4.7
Chloride 102
Carbon Dioxide 26
BUN 21 H
Creatinine 0.6 L
Glucose 223 H
Calcium 8.7
Vital Signs:
Vital Signs
Temp Pulse Resp BP Pulse Ox
97.6 F 80 16 116/47 98
01/20/25 15:00 01/20/25 15:00 01/20/25 15:00 01/20/25 15:00 01/20/25 15:00
I&O
01/19/25 01/20/25 01/21/25
06:59 06:59 06:59
Intake Total 1420 / 1420 1100 / 1100
Output Total 3650 / 3650 2850 / 2850
Balance -2230 / -2230 -1750 / -1750
Physical Exam
-
General: Well Developed and No Apparent Distress
HEENT: Normocephalic, Atraumatic and Moist Mucous Membranes
Respiratory: Clear to Auscultation
Cardiac: Regular Rhythm and S1/S2; Negative Murmur, Rub or Gallop
GI: Soft, Nontender, Nondistended and Normal Bowel Sounds; Negative Organomegaly
Rectal: Deferred by Provider
Musculoskeletal: No Clubbing, No Cyanosis and No Edema
Skin: Negative Rash
Neuro: Nonfocal/Grossly Intact
[2025-01-20 17:13] LABS: Glucose - Point of Care 244 mg/dl (70-99)
[2025-01-20] MEDS: NOVOLOG FLEXPEN 4 UNITS SC (17:18)
[2025-01-20] MEDS: LIPITOR 10 MG PO (21:01)
[2025-01-20 21:36] LABS: Glucose - Point of Care 248 mg/dl (70-99)
[2025-01-21] MEDS: ZOSYN 50 IV ×4 (01:10→21:09)
[2025-01-21] MEDS: HEPARIN SC ×2 (01:18→23:25)
[2025-01-21] MEDS: VANCOCIN 535 MG IV (05:37)
[2025-01-21 06:00] VITALS: BMI 30.7
[2025-01-21 07:20] LABS: Hematocrit 30.4 % (39.0-52.0); Hemoglobin 10.0 g/dL (13.0-18.0); Mean Corp Hgb Conc. 32.9 g/dL (33.0-37.0); Mean Corpuscular Volume 84.4 fL (80.0-94.0); Platelet Count 496 10^3/uL (130-400); Red Cell Dist. Width 15.3 % (11.5-14.5)
[2025-01-21 07:35] VITALS: BP 147/59
[2025-01-21 07:45] LABS: Blood Urea Nitrogen 23 mg/dl (9-20); Calcium 9.0 mg/dl (8.4-10.2); Carbon Dioxide 25 mmol/L (22-30); Chloride 104 mmol/L (98-107); Estimated Creatinine Clearance 91 ml/min; Glucose 214 mg/dl (70-99); Potassium 4.5 mmol/L (3.5-5.1); Sodium 132 mmol/L (135-145); eGFR > 60.00
[2025-01-21 07:52] LABS: Absolute Neutrophils -Man Diff 10.3 10^3/uL (1.4-6.5)
[2025-01-21 07:53] LABS: Anisocytosis 1+; Hypochromasia 1+; Normal RBC Morphology No; Platelets Checked Yes; Polychromasia 1+; Target Cells FEW; Total Cells Counted 100
[2025-01-21 08:04] LABS: Glucose - Point of Care 200 mg/dl (70-99)
[2025-01-21] MEDS: FARXIGA 10 MG PO (08:13)
[2025-01-21] MEDS: FLOMAX 0.4 MG PO (08:13)
[2025-01-21] MEDS: COREG 25 MG PO ×2 (08:13→21:10)
[2025-01-21] MEDS: PLAVIX 75 MG PO (08:13)
[2025-01-21] MEDS: LASIX 20 MG PO (08:14)
[2025-01-21] MEDS: HEPARIN 5000 UNITS SC ×2 (08:14→16:19)
[2025-01-21] MEDS: LOW STRENGTH ASPIRIN 81 MG PO (08:14)
[2025-01-21] MEDS: LANTUS 0.15 UNITS SC (08:20)
[2025-01-21] MEDS: NOVOLOG FLEXPEN-MODERATE RESISTANCE 3 UNITS SC ×2 (08:21→12:40)
[2025-01-21] MEDS: NOVOLOG FLEXPEN 4 UNITS SC ×2 (08:48→12:39)
[2025-01-21 11:22] LABS: Glucose - Point of Care 207 mg/dl (70-99)
--- NOTE | 2025-01-21 13:43 | PHA.VAN.FU ---
Vancomycin Assessment / Plan
- Assessment
Renal Function: Stable
WBC's are: Stable
In the past 24 hrs, patient has been: Afebrile
Concomitant Antimicrobials: piperacillin/tazobactam
- Dosing Plan
Continue: Vanc 1750mg Q24H (adjusted 01/19)
- Monitoring Plan
No level(s) ordered at this time: consider levels in next few days
- Follow Up
Pharmacy will continue to follow.
Vancomycin Follow UP
- -
Patient Age: 79
Patient Sex: Male
Vancomycin Day #: 8
Indication: Skin And Soft Tissue
Requesting Provider: Dr. Sutton
Pertinent Antimicrobial Allergies:
no pertinent antibiotic allergies
Height / Weight:
Height 5 ft 6 in
Actual Weight 86.183 kg
Pertinent Past Medical History: CKD, DM 2
- Vital Signs / Lab Results
Temp Pulse Resp BP Pulse Ox
97.7 F 75 16 147/59 97
01/21/25 07:35 01/21/25 07:35 01/21/25 07:35 01/21/25 07:35 01/21/25 07:35
Lab Results - Hematology
01/19/25 01/20/25 01/21/25
05:20 06:49 06:54
WBC 12.0 H 13.7 H 14.8 H
Band Neutrophils 5 H
Lab Results - Chemistry
01/19/25 01/20/25 01/21/25
05:20 06:49 06:54
BUN 21 H 21 H 23 H
Creatinine 0.7 0.6 L 0.7
Estimated Creat Clear 91 107 91
Albumin 2.9 L
Therapeutic Drug Monitoring
Vancomycin Peak 21.3 ug/ml (18-26) 01/18/25 10:04
Vancomycin Trough 10.3 ug/ml (5-20) 01/19/25 05:20
[2025-01-21 15:25] VITALS: BP 116/51
[2025-01-21 16:21] LABS: Glucose - Point of Care 279 mg/dl (70-99)
--- NOTE | 2025-01-21 16:22 | W.PN.HOSP.TC ---
Today's Communication/Plan
-
Continue antibiotics
Continue wound care
For angiogram in a.m.
Hold Lasix anticipating contrast exposure
Adjust insulin regimen
Assessment / Plan
Assessment / Plan
IMPRESSION:
Left lower extremity cellulitis with mild purulence (multiple superficial wounds)
Sepsis present on admission secondary to above
Toxic metabolic encephalopathy secondary to sepsis
Hypokalemia
Hypovolemic hyponatremia
Dementia, unspecified
Conditions prior to admission
PAD with prior history of lower extremity revascularization bilaterally.
Type 2 diabetes.
Essential hypertension.
GERD.
BPH baseline obstructive sleep apnea.
Protein calorie malnutrition, mild to moderate.
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
Chronic ambulatory disorder, bedridden retirement resident
PLAN:
Sepsis secondary to left lower extremity cellulitis complicated with mild superficial wounds/purulence in the settings of severe PAD.
Cannot exclude infected sacral wound
On exam palpable peripheral pulses, warm left foot with no peripheral/toe ulcers or necrosis.
Vascular surgery input appreciated. Clinically no evidence of critical ischemia
Recent arterial studies reviewed.
Repeated arterial ultrasound with no significant changes
Empiric antibiotics: Vancomycin/Zosyn
Blood cultures negative to date
01/16 wound care and imaging reviewed. Patient has 2 necrotic areas at the plantar aspect of the left foot at the 1st and 3rd metatarsal which was not present upon admission
Discussed with vascular
CTA with runoff with Patent bilateral SFA stents. Moderate stenoses through the proximal right superficial femoral artery. Evaluation of calf arteries and distal blood flow markedly limited especially with this imaging modality with at least single
vessel runoff on the right than the right lower extremity via the posterior tibial artery
Consideration of CT angiogram early next week.
Left leg cellulitis with improved erythema and induration
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
Urinalysis unremarkable
Continue Plavix
Toxic metabolic cephalopathy superimposed on chronic dementia
Patient frequently delusional, poor memory, but can convey conversation with appropriate speech, while spoken in English, no dysarthria or dysphasia noticed
Treat infection
Aspiration precautions
Monitor mental status closely.
Mental status improved
Essential hypertension
Lasix had been held since admission due to soft BP and dehydration as well as in anticipation to contrast exposure with CTA and possible angiogram
Continue Coreg with caution and with holding parameters
Type 2 diabetes
Corticosteroid induced hyperglycemia. Corticosteroids given on 01/16 for IV contrast allergy prep
Improving hemoglobin A1c.
Initiated on Lantus with addition of AC aspart
Continue Farxiga
Basal bolus protocol adjusting daily
Carbohydrate controlled diet.
Jardiance
Basal bolus protocol
BPH.
Monitor for retention
Continue Flomax
Reactive thrombocytosis
monitor
Mild hyponatremia
recurrent
monitor BMP and restart Lasix as hypokalemia resolved
follow Mg
Full code.
Anticipated Discharge: > 48 hours
Subjective/Interval History
-
Date of Service: January 21, 2025
Objective Data
-
Labs:
Laboratory Results
01/21/25
06:54
WBC 14.8 H
Hgb 10.0 L
Hct 30.4 L
Plt Count 496 H
Sodium 132 L
Potassium 4.5
Chloride 104
Carbon Dioxide 25
BUN 23 H
Creatinine 0.7
Glucose 214 H
Calcium 9.0
Vital Signs:
Vital Signs
Temp Pulse Resp BP Pulse Ox
97.7 F 75 16 147/59 97
01/21/25 07:35 01/21/25 07:35 01/21/25 07:35 01/21/25 07:35 01/21/25 07:35
I&O
01/20/25 01/21/25 01/22/25
06:59 06:59 06:59
Intake Total 1100 / 1100 520 / 520 240 / 240
Output Total 2850 / 2850 3300 / 3300
Balance -1750 / -1750 520 / 520 -3060 / -3060
Physical Exam
-
General: Well Developed and No Apparent Distress
HEENT: Normocephalic, Atraumatic and Moist Mucous Membranes
Respiratory: Clear to Auscultation
Cardiac: Regular Rhythm and S1/S2; Negative Murmur, Rub or Gallop
GI: Soft, Nontender, Nondistended and Normal Bowel Sounds; Negative Organomegaly
Rectal: Deferred by Provider
Musculoskeletal: No Clubbing, No Cyanosis and No Edema
Skin: Negative Rash
Neuro: Nonfocal/Grossly Intact
[2025-01-21] MEDS: NOVOLOG FLEXPEN 6 UNITS SC (16:56)
[2025-01-21] MEDS: NOVOLOG FLEXPEN-MODERATE RESISTANCE 5 UNITS SC (16:57)
[2025-01-21] MEDS: LIPITOR 10 MG PO (21:19)
[2025-01-21 21:48] LABS: Glucose - Point of Care 192 mg/dl (70-99)
[2025-01-21 23:28] VITALS: BP 123/49
[2025-01-21 23:59] LABS: Glucose - Point of Care 217 mg/dl (70-99)
[2025-01-22] VITALS (9 sets, daily range): BP systolic 95–137; BP diastolic 41–67; BMI 30.7
[2025-01-22] MEDS: ZOSYN 50 IV ×3 (02:50→20:34)
--- NOTE | 2025-01-22 03:21 | PTCARENOTE ---
Patient's daughter called expressing concern about receiving Heparin injection at 00:00. AALIYAH Carrasco made aware. Patient refused Heparin, patient educated on benefits of Heparin while in the hospital. AALIYAH Carrasco notified. Will continue to
monitor.
[2025-01-22] MEDS: VANCOCIN 535 MG IV (06:05)
[2025-01-22 06:10] LABS: Glucose - Point of Care 235 mg/dl (70-99)
--- NOTE | 2025-01-22 06:59 | PTCARENOTE ---
Recieved report from [facility] nurse, transported patient to cathodic protection technician recovery area. Pt seen by anesthesia currently, speaking to daughteron phone. Awaiting daughter to arrive for consent for procedure. Pt resting comfortably at present and
cooperative.
[2025-01-22] MEDS: NOVOLOG FLEXPEN SC (07:34)
--- NOTE | 2025-01-22 09:46 | W.SUR.POST ---
Surgical Immediate Post Op
Note
Pre Op Diagnosis: Critical limb ischemia
Post Op Diagnosis: Critical limb ischemia
Procedure Performed: LLE via R femoral access. Intravascular lithotripsy of TP trunk using Shockwave Javelin, balloon angioplasty of TP trunk (3.0 x 40 mm). Intravascular lithotripsy of popliteal/SFA/SHANK SCOURER/Iliac with Shockwave M5. 7 x 59 mm covered
balloon expandable Viabahn stent (SFA), 7 x 59 mm covered balloon expandable Viabahn stent (L common iliac)
Primary Surgeon: Emerson Millan III, MD
Secondary Surgeons: Akash Herron MD
Anesthesia: see anesthesia report
Estimated Blood Loss: 2 cc
Fluids: see anesthesia report
Drains/Shunts: None
Specimens/Cultures: None
Doppler/Duplex/Angio (Y/N): Y
Complications: None
Operative Findings: as above.
[2025-01-22 10:01] LABS: Glucose - Point of Care 216 mg/dl (70-99)
[2025-01-22] MEDS: HEPARIN SC ×2 (10:04→23:25)
[2025-01-22] MEDS: NOVOLOG FLEXPEN-MODERATE RESISTANCE SC (10:04)
[2025-01-22 11:09] LABS: INR 0.99; PT 13.6 Sec (11.4-14.6)
[2025-01-22 11:10] LABS: APTT 28.6 Sec (23.4-35.0)
[2025-01-22 11:15] LABS: Hematocrit 32.5 % (39.0-52.0); Hemoglobin 10.4 g/dL (13.0-18.0); Mean Corp Hgb Conc. 32.0 g/dL (33.0-37.0); Mean Corpuscular Volume 87.1 fL (80.0-94.0); Platelet Count 507 10^3/uL (130-400); Red Cell Dist. Width 15.9 % (11.5-14.5)
[2025-01-22 11:21] LABS: Blood Urea Nitrogen 23 mg/dl (9-20); Calcium 9.4 mg/dl (8.4-10.2); Carbon Dioxide 26 mmol/L (22-30); Chloride 106 mmol/L (98-107); Estimated Creatinine Clearance 91 ml/min; Glucose 225 mg/dl (70-99); Potassium 4.7 mmol/L (3.5-5.1); Sodium 136 mmol/L (135-145); eGFR > 60.00
[2025-01-22 12:01] LABS: Glucose - Point of Care 216 mg/dl (70-99)
[2025-01-22 12:12] LABS: Absolute Neutrophils -Man Diff 13.5 10^3/uL (1.4-6.5)
[2025-01-22 12:13] LABS: Anisocytosis Slight; Basophilic Stippling 1+; Hypochromasia 1+; Normal RBC Morphology No; Platelets Checked Yes; Polychromasia 1+; Total Cells Counted 100
[2025-01-22] MEDS: ZOSYN IV (12:32)
[2025-01-22] MEDS: LOW STRENGTH ASPIRIN 81 MG PO (12:40)
[2025-01-22] MEDS: PLAVIX 75 MG PO (12:40)
[2025-01-22] MEDS: COREG 25 MG PO (12:40)
[2025-01-22] MEDS: FLOMAX 0.4 MG PO (12:40)
[2025-01-22] MEDS: LANTUS 0.15 UNITS SC (12:41)
[2025-01-22] MEDS: NOVOLOG FLEXPEN-MODERATE RESISTANCE 3 UNITS SC (12:42)
[2025-01-22] MEDS: NOVOLOG FLEXPEN 6 UNITS SC (12:42)
[2025-01-22] MEDS: FARXIGA 10 MG PO (12:46)
--- NOTE | 2025-01-22 13:11 | W.PN.HOSP.TC ---
Today's Communication/Plan
-
Angioplasty today.
IV antibiotics and wound care per
Given increasing WBC, repeat chest x-ray, urinalysis and culture
Assessment / Plan
Assessment / Plan
IMPRESSION:
Left lower extremity cellulitis with mild purulence (multiple superficial wounds)
Sepsis present on admission secondary to above
Toxic metabolic encephalopathy secondary to sepsis
Hypokalemia
Hypovolemic hyponatremia
Dementia, unspecified
Conditions prior to admission
PAD with prior history of lower extremity revascularization bilaterally.
Type 2 diabetes.
Essential hypertension.
GERD.
BPH baseline obstructive sleep apnea.
Protein calorie malnutrition, mild to moderate.
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
Chronic ambulatory disorder, bedridden intermediate resident
PLAN:
Sepsis secondary to left lower extremity cellulitis complicated with mild superficial wounds/purulence in the settings of severe PAD.
Cannot exclude infected sacral wound
On exam palpable peripheral pulses, warm left foot with no peripheral/toe ulcers or necrosis.
Vascular surgery input appreciated. Clinically no evidence of critical ischemia
Recent arterial studies reviewed.
Repeated arterial ultrasound with no significant changes
Empiric antibiotics: Vancomycin/Zosyn
Blood cultures negative to date
01/16 wound care and imaging reviewed. Patient has 2 necrotic areas at the plantar aspect of the left foot at the 1st and 3rd metatarsal which was not present upon admission
Discussed with vascular
CTA with runoff with Patent bilateral SFA stents. Moderate stenoses through the proximal right superficial femoral artery. Evaluation of calf arteries and distal blood flow markedly limited especially with this imaging modality with at least single
vessel runoff on the right than the right lower extremity via the posterior tibial artery
Status post left lower extremity angiogram 01/22: Intravascular lithotripsy of TP trunk using Shockwave Javelin, balloon angioplasty of TP trunk (3.0 x 40 mm). Intravascular lithotripsy of popliteal/SFA/PROTECTION ANALYST/Iliac with Shockwave M5. 7 x 59 mm covered
balloon expandable Viabahn stent (SFA), 7 x 59 mm covered balloon expandable Viabahn stent (L common iliac)
Continue DAPT and statin
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
Toxic metabolic cephalopathy superimposed on chronic dementia
Patient frequently delusional, poor memory, but can convey conversation with appropriate speech, while spoken in E[place]an, no dysarthria or dysphasia noticed
Treat infection
Aspiration precautions
Monitor mental status closely.
Mental status improved
Essential hypertension
Lasix had been held since admission due to soft BP and dehydration as well as in anticipation to contrast exposure with CTA and possible angiogram
Continue Coreg with caution and with holding parameters
Type 2 diabetes
Corticosteroid induced hyperglycemia. Corticosteroids given on 01/16 for IV contrast allergy prep
Current hemoglobin A1c in 6
Reinstated on standing dose of insulin Lantus/aspart AC. Adjusting dose to hyperglycemia.
Continue Farxiga
Carbohydrate controlled diet.
Basal bolus protocol
BPH.
Monitor for retention
Continue Flomax
Reactive thrombocytosis
monitor
Mild hyponatremia
recurrent
monitor BMP and restart Lasix as hypokalemia resolved
follow Mg
Full code.
Anticipated Discharge: > 48 hours
Subjective/Interval History
-
Date of Service: January 22, 2025
Objective Data
-
Labs:
Laboratory Results
01/22/25
10:41
WBC 18.5 H
Hgb 10.4 L
Hct 32.5 L
Plt Count 507 H
PT 13.6
INR 0.99
APTT 28.6
Sodium 136
Potassium 4.7
Chloride 106
Carbon Dioxide 26
BUN 23 H
Creatinine 0.7
Glucose 225 H
Calcium 9.4
Vital Signs:
Vital Signs
Temp Pulse Resp BP Pulse Ox
97.1 F 69 15 107/45 92
01/22/25 11:25 01/22/25 11:30 01/22/25 11:30 01/22/25 11:30 01/22/25 11:30
I&O
01/21/25 01/22/25 01/23/25
06:59 06:59 06:59
Intake Total 520 / 520 1680 / 1680 240 / 240
Output Total 3500 / 3500 1999 / 1999
Balance 520 / 520 -1820 / -1820 -1760 / -1760
Physical Exam
-
General: Well Developed and No Apparent Distress
HEENT: Normocephalic, Atraumatic and Moist Mucous Membranes
Respiratory: Clear to Auscultation
Cardiac: Regular Rhythm and S1/S2; Negative Murmur, Rub or Gallop
GI: Soft, Nontender, Nondistended and Normal Bowel Sounds; Negative Organomegaly
Rectal: Deferred by Provider
Musculoskeletal: No Clubbing, No Cyanosis and No Edema
Skin: Negative Rash
Neuro: Nonfocal/Grossly Intact
--- NOTE | 2025-01-22 15:07 | PHA.VAN.FU ---
Vancomycin Assessment / Plan
- Assessment
Renal Function: Stable
WBC's are: Trending Up (post angio)
In the past 24 hrs, patient has been: Afebrile
Concomitant Antimicrobials: piperacillin/tazobactam
- Dosing Plan
Continue: Vanc 1750mg Q24H (adjusted 01/19)
- Monitoring Plan
Trough Level: 01/23 05:30
Monitoring Comments: level to be drawn prior to 4th dose of new regimen
May consider obtaining peak tomorrow depending on level
- Follow Up
Pharmacy will continue to follow.
Vancomycin Follow UP
- -
Patient Age: 79
Patient Sex: Male
Vancomycin Day #: 9
Indication: Skin And Soft Tissue
Requesting Provider: Dr. Sutton
Pertinent Antimicrobial Allergies:
no pertinent antibiotic allergies
Height / Weight:
Height 5 ft 6 in
Actual Weight 86.239 kg
Pertinent Past Medical History: CKD, DM 2
- Vital Signs / Lab Results
Temp Pulse Resp BP Pulse Ox
97.1 F 69 15 107/45 92
01/22/25 11:25 01/22/25 11:30 01/22/25 11:30 01/22/25 11:30 01/22/25 11:30
Lab Results - Hematology
01/20/25 01/21/25 01/22/25
06:49 06:54 10:41
WBC 13.7 H 14.8 H 18.5 H
Band Neutrophils 5 H 2
Lab Results - Chemistry
01/20/25 01/21/25 01/22/25
06:49 06:54 10:41
BUN 21 H 23 H 23 H
Creatinine 0.6 L 0.7 0.7
Estimated Creat Clear 107 91 91
Therapeutic Drug Monitoring
Vancomycin Peak 21.3 ug/ml (-) 01/18/25 10:04
Vancomycin Trough 10.3 ug/ml (5-20) 01/19/25 05:20
--- NOTE | 2025-01-22 15:41 | OR.RPT ---
Operative Report
Operative Report
Date of Operation: 01/22/2025
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
Procedure:
1. Intravascular lithotripsy to left tibioperoneal trunk using Shockwave Javelin
2. Balloon angioplasty of left tibioperoneal trunk (3 mm x 40 mm balloon)
3. Intravascular lithotripsy to left common femoral artery using 8 mm x 60 mm Shockwave M5+
4. Intravascular lithotripsy to left external iliac artery using 8 mm x 60 mm Shockwave M5+
5. Intravascular lithotripsy to left common iliac artery using 8 Mm x 60 Mm Shockwave M5+
6. Balloon angioplasty and stenting of left external iliac artery (7 mm x 59 mm Dahlen VBX)
7. Balloon angioplasty and stenting of left common iliac artery (8 mm x 59 mm Dah[place] VBX)
8. Diagnostic aortobiiliac arteriogram
9. Diagnostic left lower extremity arteriogram
10. Ultrasound-guided percutaneous access to the right common femoral artery
Surgeon: Emerson Millan III, MD
Crankshaft Balancer: Akash Herron MD PGY-6
Anesthesia: Sedation with local
Fluoroscopy:
35.1 min
579 mGy
100.35 gy.cm2
Complications: None
Estimated Blood Loss: Less than 10 cc
History and Indications for Procedure: 79-year-old male with limb threatening ischemia of his left lower extremity manifested by nonhealing left lateral distal calf wound
Procedure in Detail: Tristan Dumont was correctly identified and placed supine on the operating table. After adequate induction of anesthesia the bilateral groins were prepped and draped in the usual sterile fashion. A timeout was performed with
the nursing and anesthesia staff confirming the patient's identity as well as the nature and laterality of the procedure.
The right common femoral artery was identified under ultrasound guidance. The artery was patent. The superior and inferior aspects of the femoral head were identified with radiographic guidance and marked at the skin level. The proposed puncture
site was infiltrated with local anesthesia. Under ultrasound guidance we accessed the right common femoral artery with a micropuncture needle and upsized to a 5 Fr sheath over a [employer] wire. The wire and a Shepherds hook flush catheter were
advanced into the distal abdominal aorta and a diagnostic aorto-biiliac arteriogram was performed:
AORTO-ILIAC ARTERIOGRAM:
Aorta: Patent with no significant stenosis identified
Right common iliac artery: Patent stent with no significant stenosis identified
Right external iliac artery: Patent with no significant stenosis identified
Left common iliac artery: Calcified plaque with high-grade stenosis identified in the proximal artery proximally
Left external iliac artery: Patent stent. External iliac stenosis identified distal to the stent
Under roadmap guidance using a Glidewire and the Shepherds hook catheter we selected the left common iliac artery and then the external iliac artery. A catheter was tracked up and over the aortic bifurcation and placed in the distal external iliac
artery. A diagnostic left lower extremity arteriogram was then performed which demonstrated the following:
LEFT LOWER EXTREMITY:
Common femoral artery: Calcified plaque with high-grade stenosis
[place] femoral artery: Patent
Superficial femoral artery: Patent. Mid SFA stent stents patent with no significant in-stent restenosis identified. No significant stenosis identified
Popliteal artery: Patent
Anterior tibial artery: Patent
Tibioperoneal trunk: Focal calcified plaque contributing to high-grade stenosis
Peroneal artery: Patent
Posterior tibial artery: Patent
ENDOVASCULAR INTERVENTION: Systemic heparin was administered. Exchanged out for a 7 Fr 45 cm sheath over a Storq wire. Selected the superficial femoral artery under roadmap guidance. The [place] catheter and Glidewire were advanced to the
popliteal artery below the knee. Selected the tibioperoneal trunk under roadmap guidance with the [place] and Glidewire. Exchanged out for a 0.014 wire and this was positioned in the peroneal artery
Due to the heavily calcified nature of the tibioperoneal trunk disease and in an effort to successfully cross the lesion, modify the calcium and achieve luminal gain with endovascular intervention I elected to proceed with intravascular lithotripsy
with a Shockwave Javelin catheter. The Javelin catheter was brought into position under radiographic guidance over the 0.014 wire. The Javelin catheter was advanced through the TP trunk lesion while simultaneously delivering lithotripsy pulses. 120
pulses were delivered. Subsequent arteriogram demonstrated excellent luminal gain. I then followed this with a 3 mm x 40 mm angioplasty balloon at nominal pressure for 3-minute inflation. Subsequent arteriogram demonstrated an excellent technical
result with a widely patent tibioperoneal trunk and no significant residual stenosis identified
We then focused our attention on treating the common femoral artery and external iliac artery disease. Due to the heavily calcified nature of the common femoral artery and external iliac artery disease and in an effort to modify the calcium to
achieve maximum luminal gain with endovascular intervention I elected to proceed with intravascular lithotripsy. A 8 mm x 60 mm M5+ Shockwave balloon was placed across the stenosis under roadmap guidance. Alternating rounds of lithotripsy pulse
delivery at sub-nominal pressure and angioplasty at nominal pressure was performed across the stenosis. In between rounds of pulse delivery and angioplasty the balloon was deflated and repositioned under roadmap guidance. The common femoral artery
and distal external iliac artery were treated. 150 pulses were delivered. Subsequent arteriogram demonstrated an excellent technical result with a widely patent common femoral artery. Residual stenosis remained in the distal external iliac artery
which was treated with a 7 mm x 59 mm Dahlen VBX stent.
We then focused our attention on the left common iliac artery disease. Due to the heavily calcified nature of the left common iliac artery disease and in an effort to modify the calcium to achieve maximum luminal gain with endovascular intervention
I elected to proceed with intravascular lithotripsy. The 8 mm x 60 mm Shockwave balloon was placed across the common iliac artery stenosis under roadmap guidance. Alternating rounds of lithotripsy pulse delivery at sub-nominal pressure and
angioplasty at nominal pressure was performed across the stenosis. In between rounds of pulse delivery and angioplasty the balloon was deflated and repositioned under roadmap guidance. The remaining 150 pulses were delivered. I then followed this
with an 8 mm x 59 mm Dahlen VBX stent.
COMPLETION ARTERIOGRAM: Excellent technical result widely patent left common iliac artery stent. With no significant residual stenosis identified. Widely patent external iliac artery stent with no significant residual stenosis identified. Patent
common femoral artery with no significant residual stenosis.
Satisfied with this result we concluded the procedure. The sheath tip was pulled back into the right external iliac artery. Protamine was administered. The sheath was pulled and direct manual pressure was held over the puncture site until
hemostasis was achieved. A sterile dressing was applied.
The patient tolerated the procedure well and was taken to the recovery area in stable condition.
Attestation: I was present and responsible for the entire procedure.
Signed:
Emerson Millan III, MD
Vascular Surgery
[facility]
[2025-01-22 16:55] LABS: Glucose - Point of Care 386 mg/dl (70-99)
[2025-01-22] MEDS: HEPARIN 5000 UNITS SC (17:09)
[2025-01-22] MEDS: NOVOLOG FLEXPEN 8 UNITS SC (17:10)
[2025-01-22] MEDS: NOVOLOG FLEXPEN-MODERATE RESISTANCE 9 UNITS SC (17:10)
[2025-01-22 20:48] LABS: Glucose - Point of Care 380 mg/dl (70-99)
[2025-01-22] MEDS: COREG PO (21:16)
[2025-01-22] MEDS: LIPITOR PO (21:17)
--- NOTE | 2025-01-22 21:58 | PTCARENOTE ---
Pt refused coreg and lipitor. BP 113/44 HR 84. Pt educated on the importance of medications. Pt stated 'no, too much pressure.' Pt still refusing, ONLINE PUBLISHER made aware. Care ongoing.
[2025-01-23] MEDS: ZOSYN 50 IV ×4 (01:46→21:36)
[2025-01-23 02:30] LABS: Urine Character Clear (Clear)
[2025-01-23] MEDS: VANCOCIN 535 MG IV (06:00)
[2025-01-23 06:29] LABS: Hematocrit 29.2 % (39.0-52.0); Hemoglobin 9.6 g/dL (13.0-18.0); Mean Corp Hgb Conc. 32.9 g/dL (33.0-37.0); Mean Corpuscular Volume 84.9 fL (80.0-94.0); Platelet Count 521 10^3/uL (130-400); Red Cell Dist. Width 15.9 % (11.5-14.5)
[2025-01-23 06:36] VITALS: BMI 30.4
[2025-01-23 06:52] LABS: Blood Urea Nitrogen 28 mg/dl (9-20); Calcium 9.5 mg/dl (8.4-10.2); Carbon Dioxide 27 mmol/L (22-30); Chloride 102 mmol/L (98-107); Estimated Creatinine Clearance 91 ml/min; Glucose 183 mg/dl (70-99); Potassium 5.5 mmol/L (3.5-5.1); Sodium 133 mmol/L (135-145); eGFR > 60.00
[2025-01-23 07:00] VITALS: BP 139/55
[2025-01-23 08:07] LABS: Nucleated Red Blood Cells % 0 % (-)
[2025-01-23 08:07] LABS: Glucose - Point of Care 197 mg/dl (70-99)
--- NOTE | 2025-01-23 08:51 | PHA.VAN.FU ---
Vancomycin Assessment / Plan
- Assessment
Renal Function: Stable
WBC's are: Trending Up
In the past 24 hrs, patient has been: Afebrile
Concomitant Antimicrobials: piperacillin/tazobactam
- Assessment - Trough Based Monitoring
Trough Value: 12.2
Level Today was: Appropriate
Level Comments: drawn ~24H after 3rd maintenance dose
- Dosing Plan
Continue: Vanc 1750mg Q24H
- Monitoring Plan
Peak Level: 01/24 10:00
Trough Level: 01/25 05:30
Monitoring Comments: levels to be drawn after 5th maintenance dose
- Follow Up
Pharmacy will continue to follow.
Vancomycin Follow UP
- -
Patient Age: 79
Patient Sex: Male
Vancomycin Day #: 10
Indication: Skin And Soft Tissue
Requesting Provider: Dr. Sutton
Pertinent Antimicrobial Allergies:
no pertinent antibiotic allergies
Height / Weight:
Height 5 ft 6 in
Actual Weight 85.389 kg
Pertinent Past Medical History: CKD, DM 2
- Vital Signs / Lab Results
Temp Pulse Resp BP Pulse Ox
97.6 F 67 18 139/55 98
01/23/25 07:00 01/23/25 07:00 01/23/25 07:00 01/23/25 07:00 01/23/25 07:00
Lab Results - Hematology
01/21/25 01/22/25 01/23/25
06:54 10:41 06:02
WBC 14.8 H 18.5 H 20.1 H
Band Neutrophils 5 H 2
Lab Results - Chemistry
01/21/25 01/22/25 01/23/25
06:54 10:41 06:02
BUN 23 H 23 H 28 H
Creatinine 0.7 0.7 0.7
Estimated Creat Clear 91 91 91
Lab Results - Urine
01/23/25
02:21
Urine Nitrite (Reflex) Negative
Leukocyte Esterase Rfl Negative
Therapeutic Drug Monitoring
Vancomycin Peak 21.3 ug/ml (18-26) 01/18/25 10:04
Vancomycin Trough 12.2 ug/ml (5-20) 01/23/25 06:02
[2025-01-23] MEDS: NOVOLOG FLEXPEN-MODERATE RESISTANCE 1 UNITS SC (09:27)
[2025-01-23] MEDS: LOW STRENGTH ASPIRIN 81 MG PO (09:28)
[2025-01-23] MEDS: FARXIGA 10 MG PO (09:28)
[2025-01-23] MEDS: HEPARIN 5000 UNITS SC ×2 (09:28→18:28)
[2025-01-23] MEDS: PLAVIX 75 MG PO (09:28)
[2025-01-23] MEDS: COREG 25 MG PO ×2 (09:28→21:35)
[2025-01-23] MEDS: FLOMAX 0.4 MG PO (09:28)
[2025-01-23] MEDS: NOVOLOG FLEXPEN 8 UNITS SC (10:02)
--- NOTE | 2025-01-23 10:31 | W.PN.VS ---
Today's Communication / Plan
-
Seen and assessed with Dr Millan
Assessment/Plan
-
POD 1
Intravascular lithotripsy to left tibioperoneal trunk using Shockwave Javelin
Balloon angioplasty of left tibioperoneal trunk (3 mm x 40 mm balloon)
Intravascular lithotripsy to left common femoral artery using 8 mm x 60 mm Shockwave M5+
Intravascular lithotripsy to left external iliac artery using 8 mm x 60 mm Shockwave M5+
Intravascular lithotripsy to left common iliac artery using 8 Mm x 60 Mm Shockwave M5+
Balloon angioplasty and stenting of left external iliac artery (7 mm x 59 mm [place] VBX)
Balloon angioplasty and stenting of left common iliac artery (8 mm x 59 mm [place] VBX)
Plan:
OK for dc from vascular standpoint, follow up added to chart
Subjective Data
-
Date of Service: January 23, 2025
Pt seen at bedside this am with Dr Millan. Pt offers no complaints at this time. No events overnight.
Objective Data
-
Vital Signs
Temp Pulse Resp BP Pulse Ox
97.6 F 67 18 139/55 98
01/23/25 07:00 01/23/25 09:28 01/23/25 07:00 01/23/25 09:28 01/23/25 07:00
Intake and Output
01/22/25 01/23/25 01/24/25
06:59 06:59 06:59
Intake Total 1680 / 1680 1680 / 1680
Output Total 3500 / 3500 2440 / 2440
Balance -1820 / -1820 -760 / -760
Intake:
Oral fluids 1680 / 1680 1680 / 1680
Output:
Urine, Millan 200 / 200 450 / 450
Urine, Voided 3300 / 3300 1989 / 1989
Other:
How many times incontinent 3 2
SATURATED amount urine
Lab Results
01/23/25 06:02
01/23/25 06:02
Calcium 9.5 mg/dl (8.4-10.2) 01/23/25 06:02
Magnesium 2.0 mg/dl (1.6-2.3) 01/18/25 10:04
Total Bilirubin 0.5 mg/dl (0.2-1.3) 01/19/25 05:20
AST 19 U/L (17-59) 01/19/25 05:20
ALT 18 U/L (0-50) 01/19/25 05:20
Alkaline Phosphatase 64 U/L (38-126) 01/19/25 05:20
Total Protein 5.7 g/dl (6.3-8.2) L 01/19/25 05:20
Albumin 2.9 g/dl (3.5-5.0) L 01/19/25 05:20
Physical Exam
-
Alert and awake
No tachypnea on room air
No tachycardia
Abdomen soft
BL leg dressings c/d/i, no drainage noted
Groin site flat, soft, no hematoma or drainage
[2025-01-23] MEDS: LANTUS 0.2 UNITS SC (10:35)
[2025-01-23 12:12] LABS: Glucose - Point of Care 240 mg/dl (70-99)
--- NOTE | 2025-01-23 14:58 | W.PN.HOSP.TC ---
Today's Communication/Plan
-
Noted with rising WBC at 20, although afebrile, hemodynamically stable and overall nontoxic-appearing with improved mental status.
Urine unremarkable
Chest x-ray clear.
Will obtain additional imaging of the left lower extremity with MRI (concern for osteomyelitis or deep tissue collection) as well as sacral x-ray (stage IV sacral wound)
Continue broad-spectrum antibiotics
Follow WBC
Adjust insulin regimen for hyperglycemia
Discussed with patient's daughter at the bedside
Assessment / Plan
Assessment / Plan
IMPRESSION:
Left lower extremity cellulitis with mild purulence (multiple superficial wounds)
Sepsis present on admission secondary to above
Toxic metabolic encephalopathy secondary to sepsis
Hypokalemia
Hypovolemic hyponatremia
Dementia, unspecified
Conditions prior to admission
PAD with prior history of lower extremity revascularization bilaterally.
Type 2 diabetes.
Essential hypertension.
GERD.
BPH baseline obstructive sleep apnea.
Protein calorie malnutrition, mild to moderate.
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
Chronic ambulatory disorder, bedridden [facility] resident
PLAN:
Sepsis secondary to left lower extremity cellulitis complicated with mild superficial wounds/purulence in the settings of severe PAD.
Cannot exclude infected sacral wound
On exam palpable peripheral pulses, warm left foot with no peripheral/toe ulcers or necrosis.
Vascular surgery input appreciated. Clinically no evidence of critical ischemia
Recent arterial studies reviewed.
Repeated arterial ultrasound with no significant changes
Empiric antibiotics: Vancomycin/Zosyn
Blood cultures negative to date
01/16 wound care and imaging reviewed. Patient has 2 necrotic areas at the plantar aspect of the left foot at the 1st and 3rd metatarsal which was not present upon admission
Discussed with vascular
CTA with runoff with Patent bilateral SFA stents. Moderate stenoses through the proximal right superficial femoral artery. Evaluation of calf arteries and distal blood flow markedly limited especially with this imaging modality with at least single
vessel runoff on the right than the right lower extremity via the posterior tibial artery
Status post left lower extremity angiogram 01/22: Intravascular lithotripsy of TP trunk using Shockwave [place], balloon angioplasty of TP trunk (3.0 x 40 mm). Intravascular lithotripsy of popliteal/SFA/EDUCATIONAL TECHNOLOGY COORDINATOR/Iliac with Shockwave M5. 7 x 59 mm covered
balloon expandable Viabahn stent (SFA), 7 x 59 mm covered balloon expandable Viabahn stent (L common iliac)
Continue DAPT and statin
Present on admission left posterior heel pressure injury stage 1
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
Toxic metabolic cephalopathy superimposed on chronic dementia
Patient frequently delusional, poor memory, but can convey conversation with appropriate speech, while spoken in [place], no dysarthria or dysphasia noticed
Treat infection
Aspiration precautions
Monitor mental status closely.
Mental status improved
Essential hypertension
Lasix had been held since admission due to soft BP and dehydration as well as in anticipation to contrast exposure with CTA and possible angiogram
Continue Coreg with caution and with holding parameters
Type 2 diabetes
Corticosteroid induced hyperglycemia. Corticosteroids given on 01/16 for IV contrast allergy prep
Current hemoglobin A1c in 6
Reinstated on standing dose of insulin Lantus/aspart AC. Adjusting dose to hyperglycemia.
Continue Farxiga
Carbohydrate controlled diet.
Basal bolus protocol
BPH.
Monitor for retention
Continue Flomax
Reactive thrombocytosis
monitor
Mild hyponatremia
recurrent
monitor BMP and restart Lasix as hypokalemia resolved
follow Mg
Full code.
Anticipated Discharge: > 48 hours
Subjective/Interval History
-
Date of Service: January 23, 2025
Objective Data
-
Labs:
Laboratory Results
01/23/25
06:02
WBC 20.1 H
Hgb 9.6 L
Hct 29.2 L
Plt Count 521 H
Sodium 133 L
Potassium 5.5 H
Chloride 102
Carbon Dioxide 27
BUN 28 H
Creatinine 0.7
Glucose 183 H
Calcium 9.5
Vital Signs:
Vital Signs
Temp Pulse Resp BP Pulse Ox
97.6 F 67 18 139/55 97
01/23/25 07:00 01/23/25 09:28 01/23/25 07:00 01/23/25 09:28 01/23/25 08:00
I&O
01/22/25 01/23/25 01/24/25
06:59 06:59 06:59
Intake Total 1680 / 1680 1680 / 1680
Output Total 3500 / 3500 2440 / 2440
Balance -1820 / -1820 -760 / -760
Physical Exam
-
General: Well Developed and No Apparent Distress
HEENT: Normocephalic, Atraumatic and Moist Mucous Membranes
Respiratory: Clear to Auscultation
Cardiac: Regular Rhythm and S1/S2; Negative Murmur, Rub or Gallop
GI: Soft, Nontender, Nondistended and Normal Bowel Sounds; Negative Organomegaly
Rectal: Deferred by Provider
Musculoskeletal: No Clubbing, No Cyanosis and No Edema
Skin: Negative Rash
Neuro: Nonfocal/Grossly Intact
[2025-01-23 15:00] VITALS: BP 112/51
[2025-01-23] MEDS: NOVOLOG FLEXPEN 10 UNITS SC ×2 (15:08→18:28)
--- NOTE | 2025-01-23 15:08 | CM ---
Pt's daughter, Collette, had previously asked for a facility with [place] speaking staff. CM made a referral to [facility] where they have a [place] Coordinator and other [place] speaking staff. Pt will be accepted for admission to [facility].
I contacted pt's daughter to make her aware of the option of [facility]. She is going to contact the facility for a tour. Her only concern is that her father would likely not be transferred to [facility] if he needs hospitalization;
she is very pleased with the care at [place], so she is also considering return to [facility] due to the location.
Plan: CM to follow up with pt's daughter on Sunday.
[2025-01-23] MEDS: NOVOLOG FLEXPEN-MODERATE RESISTANCE 3 UNITS SC ×2 (15:09→18:27)
[2025-01-23 18:04] LABS: Glucose - Point of Care 242 mg/dl (70-99)
[2025-01-23] MEDS: LIPITOR 10 MG PO (21:36)
[2025-01-23 22:16] VITALS: BP 125/49
[2025-01-24] MEDS: HEPARIN SC ×2 (00:37→23:46)
[2025-01-24] MEDS: ZOSYN 50 IV ×4 (02:55→22:45)
[2025-01-24 06:00] VITALS: BMI 30.8
[2025-01-24] MEDS: VANCOCIN 535 MG IV (06:10)
[2025-01-24 07:00] VITALS: BP 128/54
--- NOTE | 2025-01-24 08:25 | W.PN.HOSP.TC ---
Today's Communication/Plan
-
Still pending MRI
WBCs improved
Speech consult
Recheck chest x-ray
Assessment / Plan
Assessment / Plan
IMPRESSION:
Left lower extremity cellulitis with mild purulence (multiple superficial wounds)
Sepsis present on admission secondary to above
Toxic metabolic encephalopathy secondary to sepsis
Hypokalemia
Hypovolemic hyponatremia
Dementia, unspecified
Conditions prior to admission
PAD with prior history of lower extremity revascularization bilaterally.
Type 2 diabetes.
Essential hypertension.
GERD.
BPH baseline obstructive sleep apnea.
Protein calorie malnutrition, mild to moderate.
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
Chronic ambulatory disorder, bedridden [facility]
PLAN:
Sepsis secondary to left lower extremity cellulitis complicated with mild superficial wounds/purulence in the settings of severe PAD.
Cannot exclude infected sacral wound
On exam palpable peripheral pulses, warm left foot with no peripheral/toe ulcers or necrosis.
Vascular surgery input appreciated. Clinically no evidence of critical ischemia
Recent arterial studies reviewed.
Repeated arterial ultrasound with no significant changes
Empiric antibiotics: Vancomycin/Zosyn
Blood cultures negative to date
01/16 wound care and imaging reviewed. Patient has 2 necrotic areas at the plantar aspect of the left foot at the 1st and 3rd metatarsal which was not present upon admission
Discussed with vascular
CTA with runoff with Patent bilateral SFA stents. Moderate stenoses through the proximal right superficial femoral artery. Evaluation of calf arteries and distal blood flow markedly limited especially with this imaging modality with at least single
vessel runoff on the right than the right lower extremity via the posterior tibial artery
Status post left lower extremity angiogram 01/22: Intravascular lithotripsy of TP trunk using Shockwave [place]avel[place], balloon angioplasty of TP trunk (3.0 x 40 mm). Intravascular lithotripsy of popliteal/SFA/PAPER SLITTER/Iliac with Shockwave M5. 7 x 59 mm covered
balloon expandable Viabahn stent (SFA), 7 x 59 mm covered balloon expandable Viabahn stent (L common iliac)
Continue DAPT and statin
01/24
sacal x ray shows : Limited examination, as described. No obvious bony destruction or fracture identified. Mild SI joint arthritis, left greater than right
MRI left foot pending
Leukocytosis improved.
Present on admission left posterior heel pressure injury stage 1
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
Toxic metabolic cephalopathy superimposed on chronic dementia
Patient frequently delusional, poor memory, but can convey conversation with appropriate speech, while spoken in [place], no dysarthria or dysphasia noticed
Treat infection
Aspiration precautions
Monitor mental status closely.
Mental status improved
Essential hypertension
Lasix had been held since admission due to soft BP and dehydration as well as in anticipation to contrast exposure with CTA and possible angiogram
Continue Coreg with caution and with holding parameters
Type 2 diabetes
Corticosteroid induced hyperglycemia. Corticosteroids given on 01/16 for IV contrast allergy prep
Current hemoglobin A1c in 6
Reinstated on standing dose of insulin Lantus/aspart AC. Adjusting dose to hyperglycemia.
Continue Farxiga
Carbohydrate controlled diet.
Basal bolus protocol
BPH.
Monitor for retention
Continue Flomax
Reactive thrombocytosis
monitor
Mild hyponatremia
recurrent
monitor BMP and restart Lasix as hypokalemia resolved
follow Mg
CODE STATUS: Full code
DVT prophylaxis: Heparin
Diet: diabetic diet
Total time spent on today's encounter was 65 minutes which included time spent in counseling the patient/family regarding diagnosis and treatment plan as listed above, goals of care, and symptom management. Case was discussed with nursing staff,
specialists, and care coordinators/case management. All labs and imaging personally reviewed by me. Remainder the time spent in detailed review of previous records, lab data, imaging, and other medical provider documentation.
Anticipated Discharge: > 48 hours
Subjective/Interval History
-
Date of Service: January 24, 2025
Patient seen and examined at bedside, denies any chest pain or shortness of breath, no abdominal pain, no nausea, no vomiting, no diarrhea or constipation.
Family at bedside, later on the patient was coughing after eating. Ordered a chest x-ray.
Objective Data
-
Labs:
Laboratory Results
01/24/25
06:00
WBC Pending
Hgb Pending
Hct Pending
Plt Count Pending
Sodium Pending
Potassium Pending
Chloride Pending
Carbon Dioxide Pending
BUN Pending
Creatinine Pending
Glucose Pending
Calcium Pending
Vital Signs:
Vital Signs
Temp Pulse Resp BP Pulse Ox
98.7 F 73 18 128/54 95
01/24/25 07:00 01/24/25 07:00 01/24/25 07:00 01/24/25 07:00 01/24/25 07:00
I&O
01/23/25 01/24/25 01/25/25
06:59 06:59 06:59
Intake Total 1680 / 1680 1780 / 1780
Output Total 2440 / 2440 4050 / 4050
Balance -760 / -760 -2270 / -2270
Physical Exam
-
General: Well Developed, Well Nourished and No Apparent Distress
HEENT: Normocephalic, Atraumatic, Moist Mucous Membranes, No Ptosis, PERRLA and Nose Appears Normal
Respiratory: Rales, Rhonchi and Non Labored Respirations
Cardiac: Regular Rhythm and S1/S2
Breast: Deferred by me
GI: Soft, Nontender, Nondistended and Normal Bowel Sounds
Genito-urinary: No Costovertebral Tender
Musculoskeletal: No Clubbing, No Cyanosis and Other (Right leg dressing, left foot dressing)
Skin: Warm
Neuro: Awake, Alert, Oriented, AO x 3 and No Motor Deficits
Psych: Calm
Data Reviewed
-
Diagnostic Radiology: Image personally visualized and interpreted and Report Reviewed by me
CT Scan: Image personally visualized and interpreted and Report Reviewed by me
Ultrasound: Image personally visualized and interpreted and Report Reviewed by me
MRI: Image personally visualized and interpreted and Report Reviewed by me
Medical Tests (Nuc Med, Echo etc): Image personally visualized and interpreted and Report Reviewed by me
Labs: Labs Reviewed by me
Old Records: Reviewed
[2025-01-24 08:49] LABS: Glucose - Point of Care 243 mg/dl (70-99)
[2025-01-24] MEDS: LANTUS 0.25 UNITS SC (08:59)
[2025-01-24] MEDS: FARXIGA 10 MG PO (08:59)
[2025-01-24] MEDS: LOW STRENGTH ASPIRIN 81 MG PO (09:00)
[2025-01-24] MEDS: PLAVIX 75 MG PO (09:00)
[2025-01-24] MEDS: LASIX 20 MG PO (09:00)
[2025-01-24] MEDS: FLOMAX 0.4 MG PO (09:00)
[2025-01-24] MEDS: COREG 25 MG PO ×2 (09:00→21:24)
[2025-01-24] MEDS: HEPARIN 5000 UNITS SC ×2 (09:01→16:51)
[2025-01-24] MEDS: NOVOLOG FLEXPEN-MODERATE RESISTANCE 3 UNITS SC ×2 (09:01→12:37)
[2025-01-24] MEDS: NOVOLOG FLEXPEN 10 UNITS SC ×3 (09:02→16:54)
[2025-01-24 10:34] LABS: Hematocrit 27.5 % (39.0-52.0); Hemoglobin 8.8 g/dL (13.0-18.0); Mean Corp Hgb Conc. 32.0 g/dL (33.0-37.0); Mean Corpuscular Volume 85.4 fL (80.0-94.0); Nucleated Red Blood Cells % 0 % (-); Platelet Count 482 10^3/uL (130-400); Red Cell Dist. Width 15.9 % (11.5-14.5)
[2025-01-24 11:01] LABS: Blood Urea Nitrogen 31 mg/dl (9-20); Calcium 9.1 mg/dl (8.4-10.2); Carbon Dioxide 23 mmol/L (22-30); Chloride 101 mmol/L (98-107); Estimated Creatinine Clearance 91 ml/min; Glucose 239 mg/dl (70-99); Potassium 4.8 mmol/L (3.5-5.1); Sodium 130 mmol/L (135-145); eGFR > 60.00
[2025-01-24 11:36] LABS: Glucose - Point of Care 218 mg/dl (70-99)
--- NOTE | 2025-01-24 14:10 | PHA.VAN.FU ---
Vancomycin Assessment / Plan
- Assessment
Renal Function: Stable
WBC's are: Trending Down
In the past 24 hrs, patient has been: Afebrile
Concomitant Antimicrobials: piperacillin/tazobactam
- Assessment - Therapeutic Drug Monitoring
Extrapolated Cmax (mcg/mL): 25.2
Peak level was drawn: Appropriately (Dose given late per nurse as new line had to be placed. Dose started at 0815.)
- Dosing Plan
Continue: Vancomycin 1750mg IV Q24h.
- Monitoring Plan
Trough Level: 01/25 0530
- Follow Up
Pharmacy will continue to follow.
Vancomycin Follow UP
- -
Patient Age: 79
Patient Sex: Male
Vancomycin Day #: 11
Indication: Skin And Soft Tissue
Requesting Provider: Dr. Sutton
Pertinent Antimicrobial Allergies:
no pertinent antibiotic allergies
Height / Weight:
Height 5 ft 6 in
Actual Weight 86.409 kg
Pertinent Past Medical History: CKD, DM 2
- Vital Signs / Lab Results
Temp Pulse Resp BP Pulse Ox
98.7 F 73 18 128/54 95
01/24/25 07:00 01/24/25 07:00 01/24/25 07:00 01/24/25 07:00 01/24/25 07:00
Lab Results - Hematology
01/22/25 01/23/25 01/24/25
10:41 06:02 10:15
WBC 18.5 H 20.1 H 15.5 H
Band Neutrophils 2
Lab Results - Chemistry
01/22/25 01/23/25 01/24/25
10:41 06:02 10:15
BUN 23 H 28 H 31 H
Creatinine 0.7 0.7 0.7
Estimated Creat Clear 91 91 91
Therapeutic Drug Monitoring
Vancomycin Peak 25.2 ug/ml () 01/24/25 12:33
Vancomycin Trough 12.2 ug/ml (5-20) 01/23/25 06:02
[2025-01-24 15:00] VITALS: BP 126/46
[2025-01-24 16:24] LABS: Glucose - Point of Care 153 mg/dl (70-99)
[2025-01-24] MEDS: NOVOLOG FLEXPEN-MODERATE RESISTANCE 1 UNITS SC (16:54)
[2025-01-24] MEDS: ZOSYN IV (21:21)
[2025-01-24] MEDS: LIPITOR 10 MG PO (21:22)
[2025-01-24 21:23] LABS: Glucose - Point of Care 134 mg/dl (70-99)
[2025-01-24 22:04] VITALS: BP 129/49
[2025-01-25] MEDS: ZOSYN 50 IV ×4 (03:24→21:53)
[2025-01-25 05:53] LABS: Hematocrit 28.6 % (39.0-52.0); Hemoglobin 9.6 g/dL (13.0-18.0); Mean Corp Hgb Conc. 33.6 g/dL (33.0-37.0); Mean Corpuscular Volume 83.1 fL (80.0-94.0); Platelet Count 489 10^3/uL (130-400); Red Cell Dist. Width 15.5 % (11.5-14.5)
[2025-01-25 06:00] VITALS: BMI 29.5
[2025-01-25 06:12] LABS: Blood Urea Nitrogen 31 mg/dl (9-20); Calcium 9.9 mg/dl (8.4-10.2); Carbon Dioxide 24 mmol/L (22-30); Chloride 103 mmol/L (98-107); Estimated Creatinine Clearance 91 ml/min; Glucose 172 mg/dl (70-99); Potassium 4.6 mmol/L (3.5-5.1); Sodium 132 mmol/L (135-145); eGFR > 60.00
[2025-01-25] MEDS: VANCOCIN 535 MG IV (06:28)
[2025-01-25 07:00] VITALS: BP 115/44
--- NOTE | 2025-01-25 07:37 | PHA.VAN.FU ---
Vancomycin Assessment / Plan
- Assessment
Renal Function: Stable
WBC's are: Stable
In the past 24 hrs, patient has been: Afebrile
Concomitant Antimicrobials: piperacillin/tazobactam
- Assessment - Therapeutic Drug Monitoring
Extrapolated Cmax (mcg/mL): 27.4
Peak level was drawn: Appropriately (drawn ~2.3H after end of previous infusion - note prior dose administered 0815)
Extrapolated Cmin (mcg/mL): 12.5
Trough Drawn: Appropriately
Levels were drawn: At steady state (levels drawn after 5th maintenance dose)
Calculated AUC (mcg*h/mL): 457
Calculated ke: 0.0357
Calculated half life (H): 19.4
Calculated Vd (L): 107 (~1.3 L/kg)
Calculated Vanc CL (ml/min): 64
- Dosing Plan
Continue: Vanc 1750mg Q24H
- Monitoring Plan
Level(s) appropriate: Recheck trough at minimum of weekly intervals, Repeat sooner for changes in renal function or clinical status
Next Level Due (Date): ~02/01 - consider sooner given recent vascular surgery
- Follow Up
Pharmacy will continue to follow.
Vancomycin Follow UP
- -
Patient Age: 79
Patient Sex: Male
Vancomycin Day #: 12
Indication: Skin And Soft Tissue
Requesting Provider: Dr. Sutton
Pertinent Antimicrobial Allergies:
no pertinent antibiotic allergies
Height / Weight:
Height 5 ft 6 in
Actual Weight 82.871 kg
Pertinent Past Medical History: CKD, DM 2
- Vital Signs / Lab Results
Temp Pulse Resp BP Pulse Ox
98.5 F 73 16 129/49 96
01/24/25 22:04 01/24/25 22:04 01/24/25 22:04 01/24/25 22:04 01/24/25 22:04
Lab Results - Hematology
01/22/25 01/23/25 01/24/25
10:41 06:02 10:15
WBC 18.5 H 20.1 H 15.5 H
Band Neutrophils 2
01/25/25
05:37
WBC 15.2 H
Band Neutrophils
Lab Results - Chemistry
01/22/25 01/23/25 01/24/25
10:41 06:02 10:15
BUN 23 H 28 H 31 H
Creatinine 0.7 0.7 0.7
Estimated Creat Clear 91 91 91
01/25/25
05:37
BUN 31 H
Creatinine 0.7
Estimated Creat Clear 91
Therapeutic Drug Monitoring
Vancomycin Peak 25.2 ug/ml (18-26) 01/24/25 12:33
Vancomycin Trough 13.7 ug/ml (5-20) 01/25/25 05:37
[2025-01-25 08:00] LABS: Glucose - Point of Care 167 mg/dl (70-99)
[2025-01-25] MEDS: HEPARIN 5000 UNITS SC ×2 (09:47→17:10)
[2025-01-25] MEDS: FARXIGA 10 MG PO (09:47)
[2025-01-25] MEDS: LOW STRENGTH ASPIRIN 81 MG PO (09:48)
[2025-01-25] MEDS: COREG 25 MG PO ×2 (09:48→21:51)
[2025-01-25] MEDS: LASIX 20 MG PO (09:50)
[2025-01-25] MEDS: FLOMAX 0.4 MG PO (09:51)
[2025-01-25] MEDS: PLAVIX 75 MG PO (09:51)
[2025-01-25] MEDS: LANTUS 0.25 UNITS SC (09:53)
[2025-01-25] MEDS: NOVOLOG FLEXPEN 10 UNITS SC ×3 (09:54→16:52)
[2025-01-25] MEDS: NOVOLOG FLEXPEN-MODERATE RESISTANCE 1 UNITS SC ×2 (09:54→16:53)
[2025-01-25 11:36] LABS: Glucose - Point of Care 224 mg/dl (70-99)
--- NOTE | 2025-01-25 12:07 | W.PN.HOSP.TC ---
Today's Communication/Plan
-
Still pending MRI
WBCs improved
Speech consult pending
Continue antibiotic.
Assessment / Plan
Assessment / Plan
IMPRESSION:
Left lower extremity cellulitis with mild purulence (multiple superficial wounds)
Sepsis present on admission secondary to above
Toxic metabolic encephalopathy secondary to sepsis
Hypokalemia
Hypovolemic hyponatremia
Dementia, unspecified
Conditions prior to admission
PAD with prior history of lower extremity revascularization bilaterally.
Type 2 diabetes.
Essential hypertension.
GERD.
BPH baseline obstructive sleep apnea.
Protein calorie malnutrition, mild to moderate.
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
Chronic ambulatory disorder, bedridden long-term resident
PLAN:
Sepsis secondary to left lower extremity cellulitis complicated with mild superficial wounds/purulence in the settings of severe PAD.
Cannot exclude infected sacral wound
On exam palpable peripheral pulses, warm left foot with no peripheral/toe ulcers or necrosis.
Vascular surgery input appreciated. Clinically no evidence of critical ischemia
Recent arterial studies reviewed.
Repeated arterial ultrasound with no significant changes
Empiric antibiotics: Vancomycin/Zosyn
Blood cultures negative to date
01/16 wound care and imaging reviewed. Patient has 2 necrotic areas at the plantar aspect of the left foot at the 1st and 3rd metatarsal which was not present upon admission
Discussed with vascular
CTA with runoff with Patent bilateral SFA stents. Moderate stenoses through the proximal right superficial femoral artery. Evaluation of calf arteries and distal blood flow markedly limited especially with this imaging modality with at least single
vessel runoff on the right than the right lower extremity via the posterior tibial artery
Status post left lower extremity angiogram 01/22: Intravascular lithotripsy of TP trunk using Shockwave Javelin, balloon angioplasty of TP trunk (3.0 x 40 mm). Intravascular lithotripsy of popliteal/SFA/MANUFACTURING INTERN/Iliac with Shockwave M5. 7 x 59 mm covered
balloon expandable Viabahn stent (SFA), 7 x 59 mm covered balloon expandable Viabahn stent (L common iliac)
Continue DAPT and statin
01/24
sacal x ray shows : Limited examination, as described. No obvious bony destruction or fracture identified. Mild SI joint arthritis, left greater than right
MRI left foot pending
Leukocytosis improved.
01/25
Leukocytosis, MRI still pending
Present on admission left posterior heel pressure injury stage 1
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
Toxic metabolic cephalopathy superimposed on chronic dementia
Patient frequently delusional, poor memory, but can convey conversation with appropriate speech, while spoken in Latvian, no dysarthria or dysphasia noticed
Treat infection
Aspiration precautions
Monitor mental status closely.
Mental status improved
Essential hypertension
Lasix had been held since admission due to soft BP and dehydration as well as in anticipation to contrast exposure with CTA and possible angiogram
Continue Coreg with caution and with holding parameters
Type 2 diabetes
Corticosteroid induced hyperglycemia. Corticosteroids given on 01/16 for IV contrast allergy prep
Current hemoglobin A1c in 6
Reinstated on standing dose of insulin Lantus/aspart AC. Adjusting dose to hyperglycemia.
Continue Farxiga
Carbohydrate controlled diet.
Basal bolus protocol
BPH.
Monitor for retention
Continue Flomax
Reactive thrombocytosis
monitor
Mild hyponatremia
recurrent
monitor BMP and restart Lasix as hypokalemia resolved
follow Mg
CODE STATUS: Full code
DVT prophylaxis: Heparin
Diet: diabetic diet
Family communication: Discussed with family at bedside.
Disposition: Pending MRI foot.
Total time spent on today's encounter was 65 minutes which included time spent in counseling the patient/family regarding diagnosis and treatment plan as listed above, goals of care, and symptom management. Case was discussed with nursing staff,
specialists, and care coordinators/case management. All labs and imaging personally reviewed by me. Remainder the time spent in detailed review of previous records, lab data, imaging, and other medical provider documentation.
Anticipated Discharge: > 48 hours
Subjective/Interval History
-
Date of Service: January 25, 2025
Patient seen and examined at bedside, denies any chest pain or shortness of breath, no abdominal pain, no nausea, no vomiting, no diarrhea or constipation.
Coughing improved.
Objective Data
-
Labs:
Laboratory Results
01/25/25
05:37
WBC 15.2 H
Hgb 9.6 L
Hct 28.6 L
Plt Count 489 H
Sodium 132 L
Potassium 4.6
Chloride 103
Carbon Dioxide 24
BUN 31 H
Creatinine 0.7
Glucose 172 H
Calcium 9.9
Vital Signs:
Vital Signs
Temp Pulse Resp BP Pulse Ox
98.1 F 75 18 132/58 95
01/25/25 07:00 01/25/25 09:50 01/25/25 07:00 01/25/25 09:50 01/25/25 07:00
I&O
01/24/25 01/25/25 01/26/25
06:59 06:59 06:59
Intake Total 1780 / 1780 1160 / 1160
Output Total 4050 / 4050 4675 / 4675
Balance -2270 / -2270 -3515 / -3515
Physical Exam
-
General: Well Developed, Well Nourished and No Apparent Distress
HEENT: Normocephalic, Atraumatic, Moist Mucous Membranes, No Ptosis, PERRLA and Nose Appears Normal
Respiratory: Rales, Rhonchi and Non Labored Respirations
Cardiac: Regular Rhythm and S1/S2
Breast: Deferred by me
GI: Soft, Nontender, Nondistended and Normal Bowel Sounds
Genito-urinary: No Costovertebral Tender
Musculoskeletal: No Clubbing, No Cyanosis and Other (Right leg dressing, left foot dressing)
Skin: Warm
Neuro: Awake, Alert, Oriented, AO x 3 and No Motor Deficits
Psych: Calm
Data Reviewed
-
Diagnostic Radiology: Image personally visualized and interpreted and Report Reviewed by me
CT Scan: Image personally visualized and interpreted and Report Reviewed by me
Ultrasound: Image personally visualized and interpreted and Report Reviewed by me
MRI: Image personally visualized and interpreted and Report Reviewed by me
Medical Tests (Nuc Med, Echo etc): Image personally visualized and interpreted and Report Reviewed by me
Labs: Labs Reviewed by me
Old Records: Reviewed
[2025-01-25] MEDS: NOVOLOG FLEXPEN-MODERATE RESISTANCE 3 UNITS SC (13:10)
--- NOTE | 2025-01-25 14:56 | PTOTSP ---
Speech Therapy Assessment
Patient with risk factors or dysphagia including admitting diagnosis of cellulitis/sepsis/TME and post op intubation. Most recent CXR showing mild left basilar atelectasis and/or pneumonia. One coughing episode not easily attributed to intake noted
during assessment. No gross or consistent signs of aspiration during bedside assessment but cannot rule out silent aspiration.
Recommend:
1. Continue current diet of Level 5/Minced and Moist and Thin Liquids.
2. Meds with liquid or as best tolerated.
3. Upright during meals and for [address] will follow up to ensure diet tolerance and determine need for objective swallowing test (FEES/VSE).
[2025-01-25 15:00] VITALS: BP 112/48
[2025-01-25 16:50] LABS: Glucose - Point of Care 164 mg/dl (70-99)
[2025-01-25 21:48] LABS: Glucose - Point of Care 135 mg/dl (70-99)
[2025-01-25] MEDS: LIPITOR 10 MG PO (21:52)
[2025-01-25 23:15] VITALS: BP 123/49
[2025-01-26] MEDS: HEPARIN SC ×2 (00:20→00:22)
[2025-01-26] MEDS: ZOSYN 50 IV ×3 (02:21→15:11)
[2025-01-26] MEDS: VANCOCIN 535 MG IV (06:39)
[2025-01-26 07:00] VITALS: BP 132/54
[2025-01-26 07:22] LABS: Hematocrit 30.7 % (39.0-52.0); Hemoglobin 10.0 g/dL (13.0-18.0); Mean Corp Hgb Conc. 32.6 g/dL (33.0-37.0); Mean Corpuscular Volume 84.8 fL (80.0-94.0); Platelet Count 504 10^3/uL (130-400); Red Cell Dist. Width 15.7 % (11.5-14.5)
[2025-01-26 07:56] LABS: Glucose - Point of Care 175 mg/dl (70-99)
[2025-01-26] MEDS: LANTUS 0.25 UNITS SC (08:05)
[2025-01-26] MEDS: LOW STRENGTH ASPIRIN 81 MG PO (08:06)
[2025-01-26] MEDS: FARXIGA 10 MG PO (08:06)
[2025-01-26] MEDS: FLOMAX 0.4 MG PO (08:06)
[2025-01-26] MEDS: LASIX 20 MG PO (08:06)
[2025-01-26] MEDS: COREG 25 MG PO ×2 (08:06→21:31)
[2025-01-26] MEDS: PLAVIX 75 MG PO (08:06)
[2025-01-26] MEDS: HEPARIN 5000 UNITS SC ×2 (08:06→16:34)
[2025-01-26] MEDS: DRISDOL (VITAMIN D2) 50000 UNITS PO (08:09)
[2025-01-26] MEDS: NOVOLOG FLEXPEN 10 UNITS SC ×3 (08:17→17:49)
[2025-01-26] MEDS: NOVOLOG FLEXPEN-MODERATE RESISTANCE 1 UNITS SC ×3 (08:17→17:48)
--- NOTE | 2025-01-26 08:27 | PHA.VAN.FU ---
Vancomycin Assessment / Plan
- Assessment
Renal Function: Stable
WBC's are: WNL
In the past 24 hrs, patient has been: Afebrile
Concomitant Antimicrobials: piperacillin/tazobactam
- Dosing Plan
Continue: vancomycin 1750 mg Q24H
- Monitoring Plan
Level(s) appropriate: Recheck trough at minimum of weekly intervals, Repeat sooner for changes in renal function or clinical status
Next Level Due (Date): 02/01
- Follow Up
Pharmacy will continue to follow.
Vancomycin Follow UP
- -
Patient Age: 79
Patient Sex: Male
Vancomycin Day #: 13
Indication: Skin And Soft Tissue
Requesting Provider: Dr. Sutton
Pertinent Antimicrobial Allergies:
no pertinent antibiotic allergies
Height / Weight:
Height 5 ft 6 in
Actual Weight 82.871 kg
Pertinent Past Medical History: CKD, DM 2
- Vital Signs / Lab Results
Temp Pulse Resp BP Pulse Ox
98.6 F 74 17 132/54 97
01/26/25 07:00 01/26/25 07:00 01/26/25 07:00 01/26/25 07:00 01/26/25 07:00
Lab Results - Hematology
01/24/25 01/25/25 01/26/25
10:15 05:37 06:48
WBC 15.5 H 15.2 H 14.2 H
Lab Results - Chemistry
01/24/25 01/25/25
10:15 05:37
BUN 31 H 31 H
Creatinine 0.7 0.7
Estimated Creat Clear 91 91
Therapeutic Drug Monitoring
Vancomycin Peak 25.2 ug/ml (18-26) 01/24/25 12:33
Vancomycin Trough 13.7 ug/ml (5-20) 01/25/25 05:37
[2025-01-26 08:33] LABS: Blood Urea Nitrogen 26 mg/dl (9-20); Calcium 9.8 mg/dl (8.4-10.2); Carbon Dioxide 21 mmol/L (22-30); Chloride 103 mmol/L (98-107); Estimated Creatinine Clearance 93 ml/min; Glucose 147 mg/dl (70-99); Potassium 4.7 mmol/L (3.5-5.1); Sodium 132 mmol/L (135-145); eGFR > 60.00
--- NOTE | 2025-01-26 11:23 | PTOTSP ---
Speech Therapy
Pt seen with PO trials of thins via cup x3, straw x2, pudding x5, regular x1 (limited trials of regular); pt edentulous with no dentures. Effective oral retrieval and containment, mildly prolonged oral phase with regular but adequate oral
clearance. Pt denied globus sensation. No overt s/sx of aspiration, wet vocal quality, or breath changes with PO trials but cannot rule out silent aspiration.
Recommend:
1. Continue regular and thins. ST will monitor for tolerance
2. Meds whole with liquid or as best tolerated
3. ST will consider VFSS to rule out silent aspiration
--- NOTE | 2025-01-26 12:00 | WOUNDNOTE ---
L ANKLE/LOWER CALF (LATERAL POSTERIOR)
--- NOTE | 2025-01-26 12:00 | WOUNDNOTE ---
R CALF (LATERAL POSTERIOR)
--- NOTE | 2025-01-26 12:00 | WOUNDNOTE ---
L PLANTAR/MEDIAL FOREFOOT
--- NOTE | 2025-01-26 12:00 | WOUNDNOTE ---
[facility] RN note: Patient s/p Vascular procedure on 01/22/25:
'Intravascular lithotripsy to left tibioperoneal trunk using Shockwave Javelin
Balloon angioplasty of left tibioperoneal trunk (3 mm x 40 mm balloon)
Intravascular lithotripsy to left common femoral artery using 8 mm x 60 mm Shockwave M5+
Intravascular lithotripsy to left external iliac artery using 8 mm x 60 mm Shockwave M5+
Intravascular lithotripsy to left common iliac artery using 8 Mm x 60 Mm Shockwave M5+
Balloon angioplasty and stenting of left external iliac artery (7 mm x 59 mm Mentor VBX)
Balloon angioplasty and stenting of left common iliac artery (8 mm x 59 mm Mentor VBX).'
LE dressings changed with help from DASHAWN Barron and patient's daughter Eugenia. LLE less swollen. L posterior lateral ankle ulcer to tendon with pink tissue edges. L foot/3rd toe drying purple areas now brown colored. No sting skin prep applied. RLE
wounds about the same, pink with yellow tissue. R upper pfeiffer wound less deep, pink with scant yellow fibrin. Skin on heels the same. Patient incontinent of urine and loose brown stool. Kavita care given. Sacral dressing changed. Sacral ulcer same,
pink to muscle. Heels off bed with air chair cushion. [facility] with a static air overlay. Updated RN Alvina. Will follow as needed.
--- NOTE | 2025-01-26 12:00 | WOUNDNOTE ---
L CALF (POSTERIOR LATERAL)
[2025-01-26 12:59] LABS: Glucose - Point of Care 181 mg/dl (70-99)
[2025-01-26 15:58] VITALS: BP 123/51
--- NOTE | 2025-01-26 15:59 | W.PN.HOSP.TC ---
Today's Communication/Plan
-
Transition to oral antibiotics.
Continue wound care.
Assessment / Plan
Assessment / Plan
IMPRESSION:
Left lower extremity cellulitis with mild purulence (multiple superficial wounds)
Sepsis present on admission secondary to above
Toxic metabolic encephalopathy secondary to sepsis
Hypokalemia
Hypovolemic hyponatremia
Dementia, unspecified
Conditions prior to admission
PAD with prior history of lower extremity revascularization bilaterally.
Type 2 diabetes.
Essential hypertension.
GERD.
BPH baseline obstructive sleep apnea.
Protein calorie malnutrition, mild to moderate.
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
Chronic ambulatory disorder, bedridden custodial resident
PLAN:
Sepsis secondary to left lower extremity cellulitis complicated with mild superficial wounds/purulence in the settings of severe PAD.
Cannot exclude infected sacral wound
On exam palpable peripheral pulses, warm left foot with no peripheral/toe ulcers or necrosis.
Vascular surgery input appreciated. Clinically no evidence of critical ischemia
Recent arterial studies reviewed.
Repeated arterial ultrasound with no significant changes
Empiric antibiotics: Vancomycin/Zosyn
Blood cultures negative to date
01/16 wound care and imaging reviewed. Patient has 2 necrotic areas at the plantar aspect of the left foot at the 1st and 3rd metatarsal which was not present upon admission
Discussed with vascular
CTA with runoff with Patent bilateral SFA stents. Moderate stenoses through the proximal right superficial femoral artery. Evaluation of calf arteries and distal blood flow markedly limited especially with this imaging modality with at least single
vessel runoff on the right than the right lower extremity via the posterior tibial artery
Status post left lower extremity angiogram 01/22: Intravascular lithotripsy of TP trunk using Shockwave Javelin, balloon angioplasty of TP trunk (3.0 x 40 mm). Intravascular lithotripsy of popliteal/SFA/FLATWORK SUPERVISOR/Iliac with Shockwave M5. 7 x 59 mm covered
balloon expandable Viabahn stent (SFA), 7 x 59 mm covered balloon expandable Viabahn stent (L common iliac)
Continue DAPT and statin
MRI of the lower extremity with no subcutaneous collection or osteomyelitis
WBC trending down
Narrow and consolidate antibiotics to cefazolin on 01/18
Present on admission left posterior heel pressure injury stage 1
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
Toxic metabolic cephalopathy superimposed on chronic dementia
Patient frequently delusional, poor memory, but can convey conversation with appropriate speech, while spoken in Bhutanese, no dysarthria or dysphasia noticed
Treat infection
Aspiration precautions
Monitor mental status closely.
Mental status improved
Essential hypertension
Lasix had been held since admission due to soft BP and dehydration as well as in anticipation to contrast exposure with CTA and possible angiogram
Continue Coreg with caution and with holding parameters
Type 2 diabetes
Corticosteroid induced hyperglycemia. Corticosteroids given on 01/16 for IV contrast allergy prep
Current hemoglobin A1c in 6
Reinstated on standing dose of insulin Lantus/aspart AC. Adjusting dose to hyperglycemia.
Continue Farxiga
Carbohydrate controlled diet.
Basal bolus protocol
BPH.
Monitor for retention
Continue Flomax
Reactive thrombocytosis
monitor
Mild hyponatremia
recurrent
monitor BMP and restart Lasix as hypokalemia resolved
follow Mg
CODE STATUS: Full code
DVT prophylaxis: Heparin
Diet: diabetic diet
Anticipated Discharge: 24 - 48 hours
Subjective/Interval History
-
Date of Service: January 26, 2025
Objective Data
-
Labs:
Laboratory Results
01/26/25
06:48
WBC 14.2 H
Hgb 10.0 L
Hct 30.7 L
Plt Count 504 H
Sodium 132 L
Potassium 4.7
Chloride 103
Carbon Dioxide 21 L
BUN 26 H
Creatinine 0.6 L
Glucose 147 H
Calcium 9.8
Vital Signs:
Vital Signs
Temp Pulse Resp BP Pulse Ox
98.2 F 82 16 123/51 98
01/26/25 15:58 01/26/25 15:58 01/26/25 15:58 01/26/25 15:58 01/26/25 15:58
I&O
01/25/25 01/26/25 01/27/25
06:59 06:59 06:59
Intake Total 1160 / 1160 2019 60 60
Output Total 4675 / 4675 500 / 500 1000 / 1000
Balance -3515 / -3515 1520 / 1520 -940 / -940
Physical Exam
-
General: Well Developed, Well Nourished and No Apparent Distress
HEENT: Normocephalic, Atraumatic, Moist Mucous Membranes, No Ptosis, PERRLA and Nose Appears Normal
Respiratory: Rales, Rhonchi and Non Labored Respirations
Cardiac: Regular Rhythm and S1/S2
Breast: Deferred by me
GI: Soft, Nontender, Nondistended and Normal Bowel Sounds
Genito-urinary: No Costovertebral Tender
Musculoskeletal: No Clubbing, No Cyanosis and Other (Right leg dressing, left foot dressing)
Skin: Warm
Neuro: Awake, Alert, Oriented, AO x 3 and No Motor Deficits
Psych: Calm
[2025-01-26 17:10] LABS: Glucose - Point of Care 175 mg/dl (70-99)
[2025-01-26] MEDS: KEFLEX 500 MG PO ×2 (17:11→21:33)
[2025-01-26 21:07] LABS: Glucose - Point of Care 131 mg/dl (70-99)
[2025-01-26] MEDS: LIPITOR 10 MG PO (21:33)
--- NOTE | 2025-01-26 21:33 | PTCARENOTE ---
Patient was offered both oral and body care multiple times, but refused. Patient stated that it is their preference to 'maybe' do care in the morning. Care is ongoing.
[2025-01-26 23:00] VITALS: BP 136/60
[2025-01-27] MEDS: HEPARIN SC ×2 (00:15→08:33)
[2025-01-27 07:00] VITALS: BP 129/53
[2025-01-27 07:35] LABS: Hematocrit 29.6 % (39.0-52.0); Hemoglobin 9.7 g/dL (13.0-18.0); Mean Corp Hgb Conc. 32.8 g/dL (33.0-37.0); Mean Corpuscular Volume 84.3 fL (80.0-94.0); Platelet Count 495 10^3/uL (130-400); Red Cell Dist. Width 15.5 % (11.5-14.5)
[2025-01-27 07:37] LABS: Glucose - Point of Care 161 mg/dl (70-99)
[2025-01-27 08:17] LABS: Blood Urea Nitrogen 22 mg/dl (9-20); Calcium 9.6 mg/dl (8.4-10.2); Carbon Dioxide 22 mmol/L (22-30); Chloride 103 mmol/L (98-107); Estimated Creatinine Clearance 93 ml/min; Glucose 156 mg/dl (70-99); Potassium 4.7 mmol/L (3.5-5.1); Sodium 132 mmol/L (135-145); eGFR > 60.00
[2025-01-27] MEDS: COREG 25 MG PO ×2 (08:24→21:25)
[2025-01-27] MEDS: FLOMAX 0.4 MG PO (08:24)
[2025-01-27] MEDS: KEFLEX 500 MG PO ×4 (08:24→21:25)
[2025-01-27] MEDS: LANTUS 0.25 UNITS SC (08:24)
[2025-01-27] MEDS: LOW STRENGTH ASPIRIN 81 MG PO (08:24)
[2025-01-27] MEDS: PLAVIX 75 MG PO (08:24)
[2025-01-27] MEDS: NOVOLOG FLEXPEN 10 UNITS SC ×3 (08:25→17:46)
[2025-01-27] MEDS: FARXIGA 10 MG PO (08:25)
[2025-01-27] MEDS: LASIX 20 MG PO (08:25)
[2025-01-27] MEDS: NOVOLOG FLEXPEN-MODERATE RESISTANCE 1 UNITS SC (08:26)
--- NOTE | 2025-01-27 09:45 | PTOTSP ---
Speech Language Pathology
VIDEOFLUOROSCOPIC SWALLOWING EXAMINATION (VSE) completed. Mild oropharyngeal dysphagia noted. Unable to masticate cookie with need to expectorate. Responsive aspiration of thin liquids via tsp noted prior to swallow initiation. No other
aspiration noted. No significant pharyngeal residue noted.
Pt expressed significant dislike over IDDSI Level 5 solids yesterday to TIE TAPE MACHINE OPERATOR. However, unable to effectively masticate regular solids. Pt is edentulous.
Recommend:
(1) Downgrade to IDDSI Level 5 (minced/moist) and thin liquids
(2) Aspiration precautions: sit upright, slow rate, chew thoroughly
(3) Meds as tolerated
(4) TIE TAPE MACHINE OPERATOR to follow, likely briefly
[2025-01-27 11:53] LABS: Glucose - Point of Care 253 mg/dl (70-99)
[2025-01-27] MEDS: NOVOLOG FLEXPEN-MODERATE RESISTANCE 5 UNITS SC (12:21)
--- NOTE | 2025-01-27 14:49 | CM ---
Addendum entered by Narcisa Graham 01/27/25 14:58:
Call from [facility]/admission
She notes that SNF admin was aware of ANA including medical transcription
They have been in contact with [facility] and pt continues to be accepted back for re-admission
Original Note:
CM reviewed pt with attending- medically ready for dc pending dispo plan
Call with dtr/Collette
She would like pt to return [phone]
Per [facility]/admissions, pt accepted back
Return SNF referral sent along with WO notes- she was unaware report of need was filed early in admission
Awaiting call back from [facility]
Discharge Disposition- anticipate return to [facility] pending [facility]
[2025-01-27 15:11] VITALS: BP 138/59
[2025-01-27] MEDS: HEPARIN 5000 UNITS SC (15:46)
--- NOTE | 2025-01-27 16:11 | W.PN.HOSP.TC ---
Today's Communication/Plan
-
Transition to oral antibiotics for additional 5 days of therapy.
Wound care to be continued at nursing facility, instructions given.
Back on standing dose of insulin given persistent hyperglycemia and dietary indiscretions. Continue Farxiga
Discharge planing
Plan of care including a.m. discharge discussed with patient's daughter over the phone.
Assessment / Plan
Assessment / Plan
IMPRESSION:
Left lower extremity cellulitis with mild purulence (multiple superficial wounds)
Sepsis present on admission secondary to above
Toxic metabolic encephalopathy secondary to sepsis
Hypokalemia
Hypovolemic hyponatremia
Dementia, unspecified
Conditions prior to admission
PAD with prior history of lower extremity revascularization bilaterally.
Type 2 diabetes.
Essential hypertension.
GERD.
BPH baseline obstructive sleep apnea.
Protein calorie malnutrition, mild to moderate.
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
Chronic ambulatory disorder, bedridden [facility]pc resident
PLAN:
Sepsis secondary to left lower extremity cellulitis complicated with mild superficial wounds/purulence in the settings of severe PAD.
Cannot exclude infected sacral wound
On exam palpable peripheral pulses, warm left foot with no peripheral/toe ulcers or necrosis.
Vascular surgery input appreciated. Clinically no evidence of critical ischemia
Recent arterial studies reviewed.
Repeated arterial ultrasound with no significant changes
Empiric antibiotics: Vancomycin/Zosyn
Blood cultures negative to date
01/16 wound care and imaging reviewed. Patient has 2 necrotic areas at the plantar aspect of the left foot at the 1st and 3rd metatarsal which was not present upon admission
Discussed with vascular
CTA with runoff with Patent bilateral SFA stents. Moderate stenoses through the proximal right superficial femoral artery. Evaluation of calf arteries and distal blood flow markedly limited especially with this imaging modality with at least single
vessel runoff on the right than the right lower extremity via the posterior tibial artery
Status post left lower extremity angiogram 01/22: Intravascular lithotripsy of TP trunk using Shockwave [place], balloon angioplasty of TP trunk (3.0 x 40 mm). Intravascular lithotripsy of popliteal/SFA/BODYBUILDER/Iliac with Shockwave M5. 7 x 59 mm covered
balloon expandable Viabahn stent (SFA), 7 x 59 mm covered balloon expandable Viabahn stent (L common iliac)
Continue DAPT and statin
MRI of the lower extremity with no subcutaneous collection or osteomyelitis
WBC trending down
Narrow and consolidate antibiotics to cefazolin on 01/18
Present on admission left posterior heel pressure injury stage 1
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
Toxic metabolic cephalopathy superimposed on chronic dementia
Patient frequently delusional, poor memory, but can convey conversation with appropriate speech, while spoken in Macedonian, no dysarthria or dysphasia noticed
Treat infection
Aspiration precautions
Monitor mental status closely.
Mental status improved
Remains aspiration risk. Speech evaluation including video swallow evaluation with recommendation minced diet with thin liquids. Discussed with family. They prefer to continue regular consistency diet accepting aspiration risk.
Essential hypertension
Lasix had been held since admission due to soft BP and dehydration as well as in anticipation to contrast exposure with CTA and possible angiogram
Continue Coreg with caution and with holding parameters
Type 2 diabetes
Corticosteroid induced hyperglycemia. Corticosteroids given on 01/16 for IV contrast allergy prep
Current hemoglobin A1c in 6
Reinstated on standing dose of insulin Lantus/aspart AC. Adjusting dose to hyperglycemia.
Continue Farxiga
Carbohydrate controlled diet.
Basal bolus protocol
BPH.
Monitor for retention
Continue Flomax
Reactive thrombocytosis
monitor
Mild hyponatremia
recurrent
monitor BMP and restart Lasix as hypokalemia resolved
follow Mg
CODE STATUS: Full code
DVT prophylaxis: Heparin
Diet: diabetic diet
Anticipated Discharge: Within 24 hours
Subjective/Interval History
-
Date of Service: January 27, 2025
Objective Data
-
Labs:
Laboratory Results
01/27/25
07:02
WBC 13.2 H
Hgb 9.7 L
Hct 29.6 L
Plt Count 495 H
Sodium 132 L
Potassium 4.7
Chloride 103
Carbon Dioxide 22
BUN 22 H
Creatinine 0.6 L
Glucose 156 H
Calcium 9.6
Vital Signs:
Vital Signs
Temp Pulse Resp BP Pulse Ox
98.1 F 74 18 138/59 98
01/27/25 15:11 01/27/25 15:11 01/27/25 15:11 01/27/25 15:11 01/27/25 15:11
I&O
01/26/25 01/27/25 01/28/25
06:59 06:59 06:59
Intake Total 2019 / 2019 1020 / 1020 480 / 480
Output Total 500 / 500 1000 / 1000
Balance 1520 / 1520 20 / 20 480 / 480
Physical Exam
-
General: Well Developed, Well Nourished and No Apparent Distress
HEENT: Normocephalic, Atraumatic, Moist Mucous Membranes, No Ptosis, PERRLA and Nose Appears Normal
Respiratory: Rales, Rhonchi and Non Labored Respirations
Cardiac: Regular Rhythm and S1/S2
Breast: Deferred by me
GI: Soft, Nontender, Nondistended and Normal Bowel Sounds
Genito-urinary: No Costovertebral Tender
Musculoskeletal: No Clubbing, No Cyanosis and Other (Right leg dressing, left foot dressing)
Skin: Warm
Neuro: Awake, Alert, Oriented, AO x 3 and No Motor Deficits
Psych: Calm
[2025-01-27 16:57] LABS: Glucose - Point of Care 214 mg/dl (70-99)
[2025-01-27] MEDS: NOVOLOG FLEXPEN-MODERATE RESISTANCE 3 UNITS SC (17:46)
[2025-01-27] MEDS: LIPITOR 10 MG PO (21:25)
[2025-01-27 21:38] LABS: Glucose - Point of Care 154 mg/dl (70-99)
[2025-01-27 23:10] VITALS: BP 145/57
[2025-01-28] MEDS: HEPARIN 5000 UNITS SC ×2 (00:16→09:46)
[2025-01-28 07:00] VITALS: BP 133/60
[2025-01-28 07:37] LABS: Glucose - Point of Care 33 mg/dl (70-99)
[2025-01-28 07:37] LABS: Glucose - Point of Care 167 mg/dl (70-99)
[2025-01-28] MEDS: FLOMAX 0.4 MG PO (09:26)
[2025-01-28] MEDS: FARXIGA 10 MG PO (09:26)
[2025-01-28] MEDS: LOW STRENGTH ASPIRIN 81 MG PO (09:26)
[2025-01-28] MEDS: LASIX 20 MG PO (09:27)
[2025-01-28] MEDS: PLAVIX 75 MG PO (09:27)
[2025-01-28] MEDS: COREG 25 MG PO (09:28)
[2025-01-28] MEDS: KEFLEX 500 MG PO ×2 (09:29→13:01)
[2025-01-28] MEDS: NOVOLOG FLEXPEN 10 UNITS SC ×2 (09:32→12:58)
[2025-01-28] MEDS: NOVOLOG FLEXPEN-MODERATE RESISTANCE 1 UNITS SC (09:32)
[2025-01-28] MEDS: LANTUS 0.25 UNITS SC (09:34)
[2025-01-28 12:09] LABS: Glucose - Point of Care 256 mg/dl (70-99)
--- NOTE | 2025-01-28 12:31 | CM ---
CM called [facility] and spoke with Yobani who agrees with pt return to [facility] today. Per Yobani, pt's records were reviewed by the public [facility].
Daughter advised of ambulance slat pickler scheduled for 2pm today. IMM reviewed and signed, copy on chart.
Plan: Return to [facility] today via ambulance at 2PM.
[facility] Report: [phone]
[facility]
[2025-01-28] MEDS: NOVOLOG FLEXPEN-MODERATE RESISTANCE 5 UNITS SC (12:57)
[2025-01-28 13:00] VITALS: BP 144/59
--- NOTE | 2025-01-28 13:00 | W.DCSUMMARY ---
Discharge Summary
Discharge Data
Date of Admission: 01/14/25
Date of Discharge: 01/28/25
-
Pending Results: No
Hospital Course
Primary diagnosis:
Left lower extremity cellulitis with leg wounds
Sepsis secondary
Toxic metabolic encephalopathy secondary to sepsis
Peripheral arterial disease status post PCI and left common iliac and left external iliac stent placement on this admission
Secondary diagnosis:
Type 2 diabetes.
Essential hypertension.
Gastroesophageal reflux disease
Benign prostatic hypertension
Obstructive sleep apnea.
Protein calorie malnutrition, mild to moderate.
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
Chronic ambulatory disorder, bedridden skilled nursing resident
Hospital course:
Patient who is a local skilled nursing resident was sent in because of multiple lower extremity wounds with mild purulence and was discovered to be septic with left leg cellulitis. He was found bacteremic. Lower extremity MRI was severely limited due
to patient unintentional motion artifact. Diffuse dorsal foot subcutaneous edema suggestive of cellulitis. No overt MR evidence for osteomyelitis or soft tissue abscess, within the limitations.
Has a history of PAD and his recent arterial ultrasound was showing significant stenosis on the left leg. Was seen by vascular surgery this admission and had below intervention on this admission
Intravascular lithotripsy to left tibioperoneal trunk using Shockwave Javelin
Balloon angioplasty of left tibioperoneal trunk (3 mm x 40 mm balloon)
Intravascular lithotripsy to left common femoral artery using 8 mm x 60 mm Shockwave M5+
Intravascular lithotripsy to left external iliac artery using 8 mm x 60 mm Shockwave M5+
Intravascular lithotripsy to left common iliac artery using 8 Mm x 60 Mm Shockwave M5+
Balloon angioplasty and stenting of left external iliac artery (7 mm x 59 mm [place] VBX)
Balloon angioplasty and stenting of left common iliac artery (8 mm x 59 mm [place] VBX)
Postintervention he had no immediate complications and his foot was warm and cellulitis was better.
He was switched to oral antibiotics and was discharged back to his facility.
Today patient was alert and seems oriented. Daughter present at bedside and was the oil burner installer. Patient speaks Bhutanese. No shortness of breath or chest pain. Tolerating diet. Afebrile. Pulse 71. Blood pressure 133/60. Saturating 96% on room
air. Chest was clear. Bilateral leg dressing noted. No external bleeding.
[place] medically stable for discharge back to facility today.
Total time of discharge 35 minutes
Consultants on board:
Vascular-Emerson Bateman
Discharge Plan
-
Patient Disposition: Prison/SNF
Discharge Diagnosis/Procedures: IMPRESSION:
Left lower extremity cellulitis with mild purulence (multiple superficial wounds)
Sepsis present on admission secondary to above
Toxic metabolic encephalopathy secondary to sepsis
Hypokalemia
Hypovolemic hyponatremia
Dementia, unspecified
Conditions prior to admission
PAD with prior history of lower extremity revascularization bilaterally.
Type 2 diabetes.
Essential hypertension.
GERD.
BPH baseline obstructive sleep apnea.
Protein calorie malnutrition, mild to moderate.
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
Chronic ambulatory disorder, bedridden skilled nursing resident
Condition: Good
Diet: Diabetic, Carb Controlled
Activity: As tolerated
Driving Restrictions: No driving
Bathing Restrictions: OK to Shower
Others Tests: Ultrasound appointments: 02/17 @ 10:30
Activity Restrictions/Additional Instructions:
Wound Care Instructions
LE's- rinse with saline to help remove dressing, clean with Vashe, adaptic, abd pads and kerlix change daily and prn drainage.
L foot/toe purple areas-swab with no sting skin prep daily, cover foot purple areas with silicone border foam, cover 2nd toe loosely with dry gauze dressing.
Heels- skin prep (allow to dry), foam dressing, change q 3 days and prn soilage
Sacral ulcer-clean with Vashe, miconazole powder prn joseph wound rash, alginate, cover with sacral shaped silicone border foam (trim distal adhesive border to avoid anal area), change daily and prn soilage.
Air mattress
Turning schedule
Elevate heels off bed; use air chair cushions to off load calves/heels.
Follow up with vascular and wound adult care provider.
Stand Alone Forms: Vascular Surg Discharge Instr
Referrals:
Esequiel Urbina MD [Family Provider]
Aleisha Sanders CRNP [Specified Professional Personl, Vascular Surgery] - 02/25/25 1:00 pm
Referral Note: Vascular surgery office follow-up
Prescriptions:
New
cephalexin 500 mg Capsule
500 mg PO QID Qty: 20 0RF
insulin aspart U-100 100 unit/mL (3 mL) Insulin Pen
10 unit SC AC Qty: 15 0RF
Insulin Glargine Lantus [Lantus] 25 UNITS
Subcutaneous Insulin Syringe [Syringe-Insulin] 0 UNIT
As Directed mls/hr SC DAILY
Ordered By: Prasanth Sutton MD
Last Taken: 01/28/25 09:34 0.25 mls
Continued
furosemide 40 mg Tablet
20 mg PO DAILY
carvedilol 25 mg Tablet
25 mg PO BID
acetaminophen 325 mg Tablet
650 mg PO Q6HPRN PRN (Reason: mild pain)
aspirin 81 mg Tablet,Delayed Release (Dr/Ec)
81 mg PO DAILY
tamsulosin 0.4 mg Capsule
0.4 mg PO DAILY
ergocalciferol (vitamin D2) 1,250 mcg (50,000 unit) Capsule
1,250 mcg PO MO
insulin aspart U-100 100 unit/mL (3 mL) Insulin Pen
0 sliding scale dose SC ACHS
Rx Instructions:
201-250= 4u; 251-300- 6u; 301-350= 8u; 351-400= 10u
omeprazole 20 mg Tablet,Delayed Release (Dr/Ec)
20 mg PO DAILY
zinc oxide 12 % Cream
1 applic TOPICAL TID
clopidogrel 75 mg Tablet
75 mg PO DAILY Qty: 30 0RF
loperamide 2 mg Tablet
2 mg PO Q8HPRN PRN (Reason: DIARRHEA)
miconazole nitrate [Antifungal (miconazole)] 2 % Powder
1 applic TOPICAL BID
magnesium hydroxide [Milk of Magnesia] 400 mg/5 mL Suspension
2,400 mg PO HSPRN PRN (Reason: IF NO BM BY 3RD DAY)
bisacodyl [Dulcolax (bisacodyl)] 10 mg Suppository
10 mg [place] DAILYPRN PRN (Reason: IF NO BM MOM)
potassium chloride 20 mEq Tablet Extended Release
20 meq PO DAILY
Vashe 0.033 % Irrigation Solution
1 irrig IRRIGATION DAILYPRN PRN (Reason: LEFT HEEL)
Vashe 0.033 % Irrigation Solution
1 irrig IRRIGATION DAILY
atorvastatin 10 mg tablet
10 mg PO HS
Jardiance 10 mg Tablet
10 mg PO DAILY
Discharge Orders:
Discharge Patient (As Directed); Ordered 01/28/25
Ordered By: Elbert Nixon
Discharge Date and Time
Print Language: Bhutanese
--- NOTE | 2025-01-28 14:15 | PTCARENOTE ---
patient appears comfortable, no s/s of aspiration, turns with max assist x2, vss, daughter at bedside, discharged to [facility].
--- NOTE | 2025-01-29 09:10 | CM ---
Message received last evening after hours, Nirali at [facility] needed to know the stop date for pt's cephalexin. Discharge summary indicates 5 additional days of cephalexin. Nirali at [facility] notified of same and will notify MD.
Pt was discharged to [facility] yesterday.
== END 2025-01-28 15:05 | DRG 853 ==
LOC: 3 WEST ACU 14:50
PROVIDERS: General Practice; Internal Medicine; Nurse Practitioner; Nurse Practitioner Acute Care; Surgery Vascular Surgery; ADMITTING PHYSICIAN Internal Medicine; ATTENDING PHYSICIAN Internal Medicine; EMERGENCY PHYSICIAN Emergency Medicine; FAMILY PHYSICIAN Internal Medicine; OTHER PHYSICIAN Surgery Vascular Surgery
PROC: 04FN3ZZ Fragmentation of Left Popliteal Artery, Percutaneous Approach (ICD-10-PCS; 2025-01-22)
PROC: 047N3ZZ Dilation of Left Popliteal Artery, Percutaneous Approach (ICD-10-PCS; 2025-01-22)
PROC: B41D1ZZ Fluoroscopy of Aorta and Bilateral Lower Extremity Arteries using Low Osmolar Contrast (ICD-10-PCS; 2025-01-22)
PROC: 047D3DZ Dilation of Left Common Iliac Artery with Intraluminal Device, Percutaneous Approach (ICD-10-PCS; 2025-01-22)
PROC: 04FL3ZZ Fragmentation of Left Femoral Artery, Percutaneous Approach (ICD-10-PCS; 2025-01-22)
PROC: 04FD3ZZ Fragmentation of Left Common Iliac Artery, Percutaneous Approach (ICD-10-PCS; 2025-01-22)
PROC: 047J3DZ Dilation of Left External Iliac Artery with Intraluminal Device, Percutaneous Approach (ICD-10-PCS; 2025-01-22)
PROC: 04FJ3ZZ Fragmentation of Left External Iliac Artery, Percutaneous Approach (ICD-10-PCS; 2025-01-22)
DX: A41.9 Sepsis, unspecified organism (principal); G92.8 Other toxic encephalopathy; L89.154 Pressure ulcer of sacral region, stage 4; L03.116 Cellulitis of left lower limb; E44.1 Mild protein-calorie malnutrition; I50.32 Chronic diastolic (congestive) heart failure; E87.1 Hypo-osmolality and hyponatremia; I11.0 Hypertensive heart disease with heart failure; E11.51 Type 2 diabetes mellitus with diabetic peripheral angiopathy without gangrene; I70.222 Atherosclerosis of native arteries of extremities with rest pain, left leg; R65.20 Severe sepsis without septic shock; E87.6 Hypokalemia; E86.1 Hypovolemia; E11.65 Type 2 diabetes mellitus with hyperglycemia; D75.838 Other thrombocytosis; K21.9 Gastro-esophageal reflux disease without esophagitis; G47.33 Obstructive sleep apnea (adult) (pediatric); N40.0 Benign prostatic hyperplasia without lower urinary tract symptoms; I89.0 Lymphedema, not elsewhere classified; E78.00 Pure hypercholesterolemia, unspecified; F01.50 Vascular dementia, unspecified severity, without behavioral disturbance, psychotic disturbance, mood disturbance, and anxiety; I25.10 Atherosclerotic heart disease of native coronary artery without angina pectoris; S80.922A Unspecified superficial injury of left lower leg, initial encounter; X58.XXXA Exposure to other specified factors, initial encounter; L89.811 Pressure ulcer of head, stage 1; Z68.29 Body mass index [BMI] 29.0-29.9, adult; Z74.01 Bed confinement status; Z95.820 Peripheral vascular angioplasty status with implants and grafts; Z79.82 Long term (current) use of aspirin; Z79.4 Long term (current) use of insulin; Z79.02 Long term (current) use of antithrombotics/antiplatelets
CPT/HCPCS: 71045; 72200; 73718; 74230; 75625; 75635; 75710; 80048; 80053; 80202; 81003; 81015; 82962; 83605; 83735; 83880; 84484; 85025; 85027; 85610; 85730; 92526; 92610; 92611; 93005; 93922; 93925; 96361; 96365; 96366; 96367; 99291; C1769; C1874; C1894; C9765; C9772; Q9967

== ENCOUNTER → 2025-02-17 10:49 | Outpatient (REF) | payer MEDICARE, OTHER, SELFPAY | LOC: RAD 10:49 | PROVIDERS: ATTENDING PHYSICIAN Surgery Vascular Surgery | DX: I73.9 Peripheral vascular disease, unspecified (principal) | CPT/HCPCS: 93922; 93925; 93978 ==

== ENCOUNTER 2025-05-15 17:13 | Inpatient (IN) | payer MEDICARE, OTHER, SELFPAY ==
[2025-05-15] VITALS (8 sets, daily range): BP systolic 110–157; BP diastolic 43–93
--- NOTE | 2025-05-15 11:19 | ED.GENMED ---
History of Present Illness
<Carrillo Estrada PA-C - Last Filed: 05/15/25 14:34>
General
Chief Complaint: Skin Problem
Source: patient
Exam Limitations: none
Time Seen by Provider: 05/15/25 10:57
History of Present Illness
History of Present Illness:
79-year-old male English-speaking only presents from [place] [facility] with worsening rash to the groin. He is a diabetic insulin-dependent. He had a Millan catheter placed 5 days ago after the onset of her fungal rash. He has not been on Diflucan for
several days as well. He presents for worsening symptoms. No reported fever. He denies chest pain or shortness of breath. Please note the entire history and physical was performed with language line video interpretation in the room.
Past History
<ANGIE Singer Last Filed: 05/15/25 14:34>
Past History
ED Past Medical History: CAD, CHF, HTN, Hypercholesterolemia and Other (Peripheral vascular disease. Chronic lymphedema. Prostatic hypertrophy)
Social History
Tobacco: Non-smoker
Alcohol: None
Drug: None
Living: detention
Employment: Retired
Phy Exam
<ANGIE Singer Last Filed: 05/15/25 14:34>
Physical Exam
Physical Exam:
General: Somewhat unkempt male no acute respiratory distress
HEENT normal cephalic atraumatic
Heart: Regular rate and rhythm
Lungs: Clear no wheeze abdomen is soft
exam: Millan catheter present rash noted in the inguinal region lower abdomen scrotal region that is erythematous and breakdown and open wound very tender
Extremities: No cyanosis
Course
<ANGIE Singer Last Filed: 05/15/25 14:34>
Orders/Labs/Results
Orders:
Orders
05/15/25 11:08
CT Abd/pelvis W Iv Cont Urgent
Comment:
Reason For Exam: rash/cellulitis
05/15/25 11:12
Complete Blood Count/With Diff Urgent
Comprehensive Metabolic Panel Urgent
Lactic Acid Q4H
Comment: CANCEL 2nd LACTIC ACID IF 1st LACTIC ACID IS LESS THAN 2
Blood Culture Q30M
MICHEAL Source: Blood/Venous
Specimen Description:
05/15/25 11:16
Diphenhydramine [Benadryl] 50 mg IV NOW STA
Hydrocortisone Sod Succinate [Solu-Cortef] 200 mg IV NOW STA
05/15/25 11:48
Blood Culture Q30M
MICHEAL Source: Blood/Venous
Specimen Description:
05/15/25 12:59
Piperacillin/Tazo 3.375 Gram [Zosyn] 3.375 gram in 50 ml IV NOW
Vancomycin [Vancocin] 2,000 mg 0.9% Sodium Chloride 500 ml [Nss] 500 ml IV NOW
05/15/25 14:29
CeFAZolin 2 GRAM [Ancef] 2 grams in 10 ml IV NOW
05/15/25 15:15
Lactic Acid Q4H
Comment: CANCEL 2nd LACTIC ACID IF 1st LACTIC ACID IS LESS THAN 2
Abnormal Lab Results
05/15/25
11:12
WBC 15.4 H 10^3/uL
(4.8-10.8)
RBC 4.56 L 10^6/uL
(4.70-6.10)
Hgb 11.4 L g/dL
(13.0-18.0)
Hct 35.9 L %
(39.0-52.0)
MCV 78.7 L fL
(80.0-94.0)
MCH 25.0 L pg
(27.0-31.0)
MCHC 31.8 L g/dL
(33.0-37.0)
RDW 16.5 H %
(11.5-14.5)
Plt Count 518 H 10^3/uL
(130-400)
Abs Immat Gran (auto) 0.1 H 10^3/uL
(0-0.05)
Absolute Neuts (auto) 11.6 H 10^3/uL
(1.4-6.5)
Absolute Monos (auto) 1.9 H 10^3/uL
(0.1-0.6)
Lymphocytes % 10.8 L %
(20.5-51.1)
Monocytes % 12.3 H %
(1.7-9.3)
Sodium 131 L mmol/L
(135-145)
Chloride 97 L mmol/L
(98-107)
Glucose 222 H mg/dl
(70-99)
AST 13 L U/L
(17-59)
05/15/25 11:12
05/15/25 11:12
Vital Signs
Initial and Last Documented VS:
Initial Vital Signs
Pulse Resp Pulse Ox
70 19 95
05/15/25 11:15 05/15/25 11:15 05/15/25 11:15
Last Documented Vital Signs
Temp Pulse Resp BP Pulse Ox
98.2 F 75 18 137/46 97
05/15/25 11:16 05/15/25 12:45 05/15/25 12:45 05/15/25 12:33 05/15/25 12:15
<Cassy Fontenot MD - Last Filed: 05/15/25 12:09>
Orders/Labs/Results
Orders:
Orders
05/15/25 11:08
CT Abd/pelvis W Iv Cont Urgent
Comment:
Reason For Exam: rash/cellulitis
05/15/25 11:12
Complete Blood Count/With Diff Urgent
Comprehensive Metabolic Panel Urgent
Lactic Acid Q4H
Comment: CANCEL 2nd LACTIC ACID IF 1st LACTIC ACID IS LESS THAN 2
Blood Culture Q30M
MICHEAL Source: Blood/Venous
Specimen Description:
05/15/25 11:16
Diphenhydramine [Benadryl] 50 mg IV NOW STA
Hydrocortisone Sod Succinate [Solu-Cortef] 200 mg IV NOW STA
05/15/25 11:48
Blood Culture Q30M
MICHEAL Source: Blood/Venous
Specimen Description:
05/15/25 12:59
Piperacillin/Tazo 3.375 Gram [Zosyn] 3.375 gram in 50 ml IV NOW
Vancomycin [Vancocin] 2,000 mg 0.9% Sodium Chloride 500 ml [Nss] 500 ml IV NOW
05/15/25 14:29
CeFAZolin 2 GRAM [Ancef] 2 grams in 10 ml IV NOW
05/15/25 15:15
Lactic Acid Q4H
Comment: CANCEL 2nd LACTIC ACID IF 1st LACTIC ACID IS LESS THAN 2
Abnormal Lab Results
05/15/25
11:12
WBC 15.4 H 10^3/uL
(4.8-10.8)
RBC 4.56 L 10^6/uL
(4.70-6.10)
Hgb 11.4 L g/dL
(13.0-18.0)
Hct 35.9 L %
(39.0-52.0)
MCV 78.7 L fL
(80.0-94.0)
MCH 25.0 L pg
(27.0-31.0)
MCHC 31.8 L g/dL
(33.0-37.0)
RDW 16.5 H %
(11.5-14.5)
Plt Count 518 H 10^3/uL
(130-400)
Abs Immat Gran (auto) 0.1 H 10^3/uL
(0-0.05)
Absolute Neuts (auto) 11.6 H 10^3/uL
(1.4-6.5)
Absolute Monos (auto) 1.9 H 10^3/uL
(0.1-0.6)
Lymphocytes % 10.8 L %
(20.5-51.1)
Monocytes % 12.3 H %
(1.7-9.3)
Sodium 131 L mmol/L
(135-145)
Chloride 97 L mmol/L
(98-107)
Glucose 222 H mg/dl
(70-99)
AST 13 L U/L
(17-59)
05/15/25 11:12
05/15/25 11:12
Vital Signs
Initial and Last Documented VS:
Initial Vital Signs
Pulse Resp Pulse Ox
70 19 95
05/15/25 11:15 05/15/25 11:15 05/15/25 11:15
Last Documented Vital Signs
Temp Pulse Resp BP Pulse Ox
98.2 F 75 18 137/46 97
05/15/25 11:16 05/15/25 12:45 05/15/25 12:45 05/15/25 12:33 05/15/25 12:15
Leslielt;Carrillo Estrada PA-C - Last Filed: 05/15/25 14:34>
MDM/Problems Addressed
Differential Diagnosis Includes:
Painful rash to the inguinal region. Question fungal infection with secondary bacterial infection. Also concern for underlying abscess or fluid collection or deep space infection. CT of the abdomen pelvis ordered with IV contrast. He may have a
dye allergy. Steroids and Benadryl ordered for prophylactic treatment of the allergy.
I reviewed blood work at the outpatient facility dated yesterday which demonstrated leukocytosis and then of a white count of 15,000. Recheck of labs pending today.
<Carrillo Estrada PA-C - Last Filed: 05/15/25 14:34>
*Pulse Oximetry
Patient hypoxic: no
*Critical Care Note
Total Time (30-74mins, 75-104mins- exclusive of procedures): Not Applicable
<Carrillo Estrada PA-C - Last Filed: 05/15/25 14:34>
Update Note
Update Note:
CAT scan demonstrates that the Millan catheter was inflated in the penile urethra. Nursing staff attempted to deflate and advance however they met significant resistance and the patient was in significant pain. They asked me to come into the room
and decision was made to remove the catheter given the pain the patient was and lack of ability to advance it. Patient was able to void on his own into the truck. Antibiotics were ordered for potential overlying cellulitis of primary fungal skin
infection of the groin. Will admit to hospital
ED Attending Note
<Carrillo Estrada PA-C - Last Filed: 05/15/25 14:34>
-
Portions of this chart may have been created with voice recognition software.� Occasional wrong word or��sound alike� substitutions may have occurred due to the inherent limitations of voice recognition software.
<Cassy Fontenot MD - Last Filed: 05/15/25 12:09>
ED Attending Note
Patient seen and examined by attending physician: Yes
I performed the substantive portion of visit, reviewed & personally made and approve the management plan that is documented in note by myself or REMBERTO.: Yes
ED Attending Note:
Patient appears nontoxic but sleepy. Neurological exam is nonfocal. Patient is breathing comfortably. Patient has extensive erythema of lower abdomen, bilateral inguinal area and scrotal area.
Discharge Plan
Departure
Patient Disposition: Admit
Date of Disposition: 05/15/25
Time of Disposition: 14:33
Presentation/result/management discussed w/ accepting MD/DO: Hospitalist
Discharge Problem:
severe intertrigo
Prescriptions:
No Action
furosemide 40 mg Tablet
20 mg PO DAILY
carvedilol 25 mg Tablet
25 mg PO BID
acetaminophen 325 mg Tablet
650 mg PO Q6HPRN PRN (Reason: mild pain)
aspirin 81 mg Tablet,Delayed Release (Dr/Ec)
81 mg PO DAILY
tamsulosin 0.4 mg Capsule
0.4 mg PO DAILY
ergocalciferol (vitamin D2) 1,250 mcg (50,000 unit) Capsule
1,250 mcg PO MO
insulin aspart U-100 100 unit/mL (3 mL) Insulin Pen
0 sliding scale dose SC ACHS
Rx Instructions:
201-250= 4u; 251-300- 6u; 301-350= 8u; 351-400= 10u
omeprazole 20 mg Tablet,Delayed Release (Dr/Ec)
20 mg PO DAILY
zinc oxide 12 % Cream
1 applic TOPICAL TID
clopidogrel 75 mg Tablet
75 mg PO DAILY Qty: 30 0RF
loperamide 2 mg Tablet
2 mg PO Q8HPRN PRN (Reason: DIARRHEA)
miconazole nitrate [Antifungal (miconazole)] 2 % Powder
1 applic TOPICAL BID
magnesium hydroxide [Milk of Magnesia] 400 mg/5 mL Suspension
2,400 mg PO HSPRN PRN (Reason: IF NO BM BY 3RD DAY)
bisacodyl [Dulcolax (bisacodyl)] 10 mg Suppository
10 mg [place] DAILYPRN PRN (Reason: IF NO BM MOM)
potassium chloride 20 mEq Tablet Extended Release
20 meq PO DAILY
Vashe 0.033 % Irrigation Solution
1 irrig IRRIGATION DAILYPRN PRN (Reason: LEFT HEEL)
Vashe 0.033 % Irrigation Solution
1 irrig IRRIGATION DAILY
atorvastatin 10 mg tablet
10 mg PO HS
Jardiance 10 mg Tablet
10 mg PO DAILY
insulin glargine [Lantus U-100 Insulin] 100 unit/mL Solution
15 unit SC HS
fluconazole [Diflucan] 150 mg Tablet
150 mg PO Q7D
Rx Instructions:
for 3 weeks starting 05/14/25
ciprofloxacin HCl 500 mg Tablet
500 mg PO BID
Rx Instructions:
for 7 days starting 05/15/25
Interventions
Interventions:
*Risk Screen - Suicide Last Done: 05/15/25 11:16
*General Assessment Last Done: 05/15/25 11:16
*Neglect/Abuse Screening Last Done: 05/15/25 11:16
*ED COVID-19 Vaccine History Last Done: 05/15/25 12:22
*ED Influenza Vaccine History Last Done: 05/15/25 12:22
Discharge Date and Time
Print Language: English
[2025-05-15 11:28] LABS: Hematocrit 35.9 % (39.0-52.0); Hemoglobin 11.4 g/dL (13.0-18.0); Mean Corp Hgb Conc. 31.8 g/dL (33.0-37.0); Mean Corpuscular Volume 78.7 fL (80.0-94.0); Nucleated Red Blood Cells % 0 % (-); Platelet Count 518 10^3/uL (130-400); Red Cell Dist. Width 16.5 % (11.5-14.5)
[2025-05-15] MEDS: SOLU-CORTEF 200 MG IV (11:37)
[2025-05-15] MEDS: BENADRYL 50 MG IV (11:38)
[2025-05-15 11:39] LABS: ALT (SGPT) 11 U/L (0-50); AST (SGOT) 13 U/L (17-59); Albumin 3.7 g/dl (3.5-5.0); Alkaline Phosphatase 90 U/L (38-126); Blood Urea Nitrogen 17 mg/dl (9-20); Calcium 9.1 mg/dl (8.4-10.2); Carbon Dioxide 25 mmol/L (22-30); Chloride 97 mmol/L (98-107); Glucose 222 mg/dl (70-99); Potassium 4.3 mmol/L (3.5-5.1); Sodium 131 mmol/L (135-145); Total Protein 7.0 g/dl (6.3-8.2); eGFR > 60.00
[2025-05-15] MEDS: ZOSYN 50 IV ×2 (13:33→20:21)
[2025-05-15] MEDS: VANCOCIN 540 MG IV (14:18)
--- NOTE | 2025-05-15 15:01 | HPS.HSE ---
Addendum entered and electronically signed by Candida Gamboa MD 05/15/25 17:50:
This is an addendum to H&P written by Gianna Lomeli on 05/15/2025. �Patient seen and examined independently with [facility] [employer] PROFESSOR.
79-year-old [place]raltarian-speaking male past medical history of CAD status post PCI, HFpEF, hypertension, diabetes, BPH, obstructive sleep apnea on CPAP, chronic ambulatory dysfunction, functional quadriplegia, PAD status post bilateral lower extremity
vascularization,, chronic wounds of left lower extremity, diabetic neuropathy, mild dementia, anemia of chronic disease, BPH, presenting from [place] [facility] with rash of the groin ongoing for 1 week.
Rashes extremely painful with purulent discharge as well as ulcerations on the scrotum.
He had lab work done which showed elevated WBC and urinalysis concerning for infection as well as VENANCIO. �He was started on ciprofloxacin. �He was started on nystatin and zinc oxide for the rash. �He received a dose of fluconazole yesterday. �He had
Millan catheter placed 4 days ago due to urinary incontinence and infection of groin.
Vital signs unremarkable.
Labs show leukocytosis of 15.4. �Stable anemia of 11.4. �Blood sugar 222.
CT abdomen pelvis shows laxity of the left anterior lateral abdominal wall, lying protrusion of the abdominal contents. �No evidence of incarceration or obstruction. �Pronounced fecal retention within the rectum which is distended with stool
measuring 7.4 cm may be related to constipation or fecal impaction.
Concern for severe candidal/dermatophyte infection of the groin which did not improve with single fluconazole dose. �Possible that patient superimposed bacterial infection as well as consideration of potential HSV infection. �Blood cultures, wound
culture, HSV culture from ulceration ordered. �IV fluids, hold Lasix, continue fluconazole every 72 hours, empiric vancomycin/Zosyn, start valacyclovir. �ID consulted. �Wound care. Benadryl for pain. Avoid topical agents for now.
Millan catheter was not present within the bladder. �Patient will require Versed to be sedated prior to replacement of Millan catheter. �Urinalysis and urine culture.
Wound care for chronic lower extremity/sacral wounds.
Start MiraLAX for constipation, fleets enema if needed.�
Original Note:
Family Physician
-
Family Physician: Esequiel Urbina MD
Chief Complaint
-
Severe groin rash bilaterally, vesicular rash, recent UTI
History of Present Illness
79-year-old [place]ralt[place]-speaking male from [facility] who started with a groin rash 7 days ago and some confusion daughter requested labs and urine she states WBC was 11.8 urine showed WBC of 47 patient was started on ciprofloxacin on
05/10/2025 twice daily of which she has taken 4.5 days of. Daughter is unaware of what urine culture showed. We do not have any prior urine cultures here showing bacteria. He was started on zinc oxide/nystatin powder 7 days ago with no improvement
and started on Diflucan yesterday 150 mg single dose was to take for 7 days according to [facility]. He also presented with a Millan catheter placed 5 days ago that was in the urethra with deflated balloon. Millan catheter was pulled in ER. Patient has
extensive erythematous fungal rash under abdomen extending to bilateral groin, penis, scrotum with suspected underlying cellulitis and vesicular appearing rash. He complains of burning and itching to the area. He has green drainage to the left
groin. Laron Murdock is at bedside does not report any history of HSV. The patient has chronic bilateral leg wounds due to severe PAD on presentation and a sacral wound from being chronically bedbound. There has been no reported fever, chills,
abdominal pain, nausea, vomiting, chest pain, palpitations, cough, shortness of breath per daughter Collette. Patient has past medical history of DM2, CAD, CHF preserved EF, HTN, HLD, GERD, PVD with prior history of lower extremity revascularization
bilaterally SFA stents, sepsis/LLE cellulitis superficial wounds December 2024 chronic lymphedema, BPH, dementia, chronic ambulatory dysfunction bedwetting at [facility], history of stage III�stage IV left posterior heel ulcer December 2024 protein
calorie malnutrition mild this moderate, FRANCESCO.
Medical History
Past Medical History
Past Medical History: Reports Other
Additional Past Medical History:
DM2
CAD
CHF preserved EF
HTN
HLD
GERD
PVD with prior history of lower extremity revascularization bilaterally SFA stents
sepsis/LLE cellulitis superficial wounds December 2024
chronic lymphedema
Chronic bilateral leg wounds
BPH
Dementia�mild per daughter
chronic ambulatory dysfunction bedwetting at [facility]
history of stage III�stage IV left posterior heel ulcer December 2024�resolved
protein calorie malnutrition mild this moderate
FRANCESCO-daughter believes resolved does not on any oxygen
Mechanical soft diet thin liquids needs to sit 90 degrees upright
Past Surgical History: Reports Other
Additional Past Surgical History:
Bilateral legs revascularization with SFA stents
Social History
Tobacco: Former Smoker (50+ years stopped 2022)
Alcohol: None
Drug: None
Personal:
Living: [facility] ([facility])
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
Family History
Family History: Not pertinent
Allergies / Home Medications
Allergies reflects when Allergies were last updated in [facility].
Home Medications with original date entered in [facility]
Allergy/Medication List:
Allergies
Allergy/AdvReac Type Severity Reaction Status Date / Time
acetic acid Allergy Unknown Verified 12/26/24 14:42
hydromorphone Allergy Unknown Verified 12/26/24 14:42
iodine Allergy Unknown Verified 12/26/24 14:42
morphine Allergy Unknown Verified 12/26/24 14:42
Home Medications
acetaminophen 325 mg tablet 650 mg PO Q6HPRN PRN mild pain 04/04/24
aspirin 81 mg tablet,delayed release 81 mg PO DAILY Blood Clot Prevention/Tx 04/04/24
carvedilol 25 mg tablet 25 mg PO BID Blood Pressure 04/04/24
ergocalciferol (vitamin D2) 1,250 mcg (50,000 unit) capsule 1,250 mcg PO MO Supplement 04/04/24
furosemide 40 mg tablet 20 mg PO DAILY Fluid Retention/Swelling 04/04/24
insulin aspart U-100 100 unit/mL (3 mL) subcutaneous pen 0 sliding scale dose SC ACHS Diabetes 04/04/24
omeprazole 20 mg tablet,delayed release 20 mg PO DAILY Gastrointestinal Issue 04/04/24
tamsulosin 0.4 mg capsule 0.4 mg PO DAILY Urinary Issue 04/04/24
zinc oxide 12 % topical cream 1 applic topical TID PERIANAL AREA 04/04/24
clopidogrel 75 mg tablet 75 mg PO DAILY #30 tabs 04/30/24
atorvastatin 10 mg tablet 10 mg PO HS High Cholesterol 10/22/24
bisacodyl 10 mg rectal suppository (Dulcolax (bisacodyl)) 10 mg SD DAILYPRN PRN IF NO BM MOM 10/22/24
loperamide 2 mg tablet 2 mg PO Q8HPRN PRN DIARRHEA 10/22/24
magnesium hydroxide 400 mg/5 mL oral suspension (Milk of Magnesia) 2,400 mg PO HSPRN PRN IF NO BM BY 3RD DAY 10/22/24
miconazole nitrate 2 % topical powder (Antifungal (miconazole)) 1 applic topical BID REDNESS,FOLDS,ABD FOLDS 10/22/24
potassium chloride 20 mEq tablet,extended release 20 meq PO DAILY Supplement 10/22/24
sodium chloride-hypochlorous acid 0.033 % irrigation solution (Vashe) 1 irrig irrigation DAILY LEFT HEEL 10/22/24
sodium chloride-hypochlorous acid 0.033 % irrigation solution (Vashe) 1 irrig irrigation DAILYPRN PRN LEFT HEEL 10/22/24
empagliflozin 10 mg tablet (Jardiance) 10 mg PO DAILY Diabetes 12/26/24
ciprofloxacin HCl 500 mg tablet 500 mg PO BID 05/15/25
fluconazole 150 mg tablet 150 mg PO Q7D 05/15/25
insulin glargine 100 unit/mL subcutaneous solution (Lantus U-100 Insulin) 15 unit SC HS 05/15/25
Review of Systems
-
History Source: Patient, Family (Daughter Collette) and Penitentiary (Record)
A 12 point ROS was completed and negative except as noted: Yes
Constitutional: Denies Fever or Chills
EENT: Denies Sore Throat or Runny Nose
Respiratory: Denies Cough or Trouble Breathing
Cardiac: Denies Chest Pain, Diaphoresis or Palpitations
Abdomen/GI: Denies Abdominal Pain, Nausea, Vomiting or Diarrhea
: Reports Other (Bilateral groin/under abdominal fold erythematous presumed fungal rash severe with suspected cellulitis, surrounding superficial ulcerations to penis, shaft, scrotum with green drainage to left groin nonodorous); Denies Dysuria
Musculoskeletal: Reports Other (Chronic bilateral leg anterior wounds dressed with dressing and heel boots in place present on admission); Denies Joint Pain
Skin: Denies Itching
Neurological: Denies Dizzy or Headache
Endocrine: Reports No Symptoms
Hematologic/Lymphatic: Reports No Symptoms
Psych: Reports Calm
Physical Exam
Vital Signs
Vital Signs
Temp Pulse Resp BP Pulse Ox
98.2 F 76 20 131/58 92
05/15/25 11:16 05/15/25 14:30 05/15/25 14:30 05/15/25 14:20 05/15/25 14:20
Physical Exam
General: Conversant, Pain and Other (Malaysian speaking but primarily Gibraltarian speaking male with history of dementia-mild per daughter Collette at bedside); No Fever or Chills
HEENT: NormoCephalic, Anicteric, PERRLA, Mutual Conjunctivae, No Ptosis and Other (Dry oral mucosa)
Respiratory: Clear; No Wheezes, Rales or Rhonchi
Cardiac: S1/S2, Regular Rhythm and Peripheral Edema (Nonpitting bilateral legs history chronic lymphedema); No Murmur, Rub or Gallop
Breast: Deferred by me
GI: Soft, Non Tender, Non Distended, Normal Bowel Sounds and No Hepatosplenomegaly
Rectal: Deferred by Provider
Genito-urinary: Other (Bilateral groin/under abdominal fold erythematous presumed fungal rash severe with suspected cellulitis, surrounding superficial ulcerations to penis, shaft, scrotum with green drainage to left groin nonodorous)
Musculoskeletal: No Clubbing, No Cyanosis, Edema, Left Lower Extremity (Chronic leg lymphedema-mild with chronic anterior ulcerations with history of severe PVD) and Edema, Right Lower Extremity (Chronic leg lymphedema-mild with chronic anterior
ulcerations with history of severe PVD); No Edema, Left Upper Extremity or Edema, Right Upper Extremity
Skin: Warm, Dry and Decubitus Ulcers (Sacral)
Neuro: Awake, Alert and Oriented (Per daughter to name, place, daughter, review of system)
Psych: Calm
Laboratory Results
-
05/15/25 11:12
05/15/25 11:12
Laboratory Results
Lactic Acid 1.7 mmol/L (0.7-2.0) 05/15/25 11:12
Total Bilirubin 0.3 mg/dl (0.2-1.3) 05/15/25 11:12
AST 13 U/L (17-59) L 05/15/25 11:12
ALT 11 U/L (0-50) 05/15/25 11:12
Alkaline Phosphatase 90 U/L (38-126) 05/15/25 11:12
Impression/Plan
-
Impression/plan:
Admit to MedSurg
#Severe groin intertrigo with groin cellulitis
#Vesicular rash to penis/scrotal area concerning for HSV
- Has been on outpatient Diflucan with no improvement
- WBC 15.4 no shift, afebrile 98.2, RR 20, HR 76, BP 131/58
- IV vancomycin
- IV Zosyn
-IV NSS 1 L
-Will give scheduled Tylenol due to pain as patient cannot tolerate any narcotics per daughter
-IV Benadryl as needed pruritus
-IV Versed for Millan catheter insertion, Millan catheter being inserted for severe groin intertrigo/cellulitis/vesicular rash
-Check left groin swab culture
-Penile PCR culture for HSV
-Will start valacyclovir 1000 mg twice daily x 7 days while culture pending
-Will continue Diflucan 150 mg daily x 3 days
-Consult infectious disease�Dr. Yoon is aware
- Consult wound care
-Consult PT/OT/case management
Follow CBC, CMP
CT abdomen pelvis with IV contrast: 1. Laxity of the left anterolateral abdominal wall, allowing protrusion of abdominal contents. No evidence of incarceration or intestinal obstruction.
Performed before reinsertion of Millan 2. The balloon for the Millan catheter is inflated within the penile urethra. The tip of the Millan catheter is also within the penile urethra.
3. Pronounced fecal retention within the rectum, which is distended with stool and measures 7.4 cm in transverse dimension.
Finding is may related to constipation and/or fecal impaction.
4. Severe arterial vascular calcification.
#Fecal retention/constipation per CT
Will try MiraLAX daily
- Fleets enema if no bowel movement
- Continue home OTC Dulcolax if no bowel movement
#Recent reported UTI started ciprofloxacin 07/10 completed 4.5 days
#BPH
Millan cath present on admission in urethra
Millan catheter removed in ED
- Will replace Millan catheter due to severe groin intertrigo/groin cellulitis/vesicular rash
-Will repeat urine and culture
- Continue IV vancomycin IV Zosyn
#Chronic bilateral leg ulcerations/wounds present on admission
#Sacral wound present on admission
#PVD with prior history of lower extremity revascularization bilaterally SFA stents
#sepsis/LLE cellulitis superficial wounds December 2024
#chronic bilateral leg lymphedema
-Consult wound care
- Recommend air mattress
#Dementia daughter reports mild
Normally oriented to name, place occasionally gets confused because then thinks he still works
Patient does understand Malaysian but nulato language is Gibraltarian when sick tends to speak in Gibraltarian
#History Dysphagia
#Mechanical soft diet
-Mechanical soft diet with thin liquids patient tends to drink susan garrett, cranberry, mashed potatoes, meat loaf, oatmeal, eggs, okay for yogurts no cheese
#Chronic anemia
Hgb 11.4 appears better than baseline, MCV 78.7
#DM 2
Blood sugar 222
Accu-Cheks with SSI
-Continue Lantus 15 units at bedtime, Jardiance 10 mg daily
#HTN
BP 131/58
Continue carvedilol 25 mg p.o. twice daily daughter states is held if SBP less than 125
#HLD
- Continue atorvastatin
#CAD
#CHF preserved EF
I/O, daily weights
#-Continue aspirin 81 mg daily, atorvastatin 10 mg at bedtime, Plavix 75 mg daily
-hold Lasix 20 mg daily
2D echo 04/09/2024 EF 55 to 60% normal LVS LVSF no wall abnormality mild LVH
- Had echo with [facility] cardiology
#GERD
-Continue omeprazole
#Chronic ambulatory dysfunction bedwetting at [facility]
-Consult PT/OT/case management
#History of stage III�stage IV left posterior heel ulcer December 2024
- Left heel ulcer
not present on this exam
-continue heel protector boots patient has present on admission wears per wound care
#History of protein calorie malnutrition mild this moderate
FRANCESCO
Daughter reports lost weight no longer on oxygen
DVT prophylaxis
Subcu Lovenox
Full code
[2025-05-15] MEDS: DIFLUCAN 150 MG PO (16:45)
[2025-05-15] MEDS: VERSED 5 MG IV (16:57)
[2025-05-15 17:47] LABS: Urine Character Clear (Clear)
[2025-05-15 18:00] LABS: Urine Red Blood Cell 0-2 /HPF (0-2); Urine White Cell 0-2 /HPF (0-5)
[2025-05-15] MEDS: NSS 1000 IV (18:33)
[2025-05-15] MEDS: TYLENOL 650 MG PO (18:37)
[2025-05-15] MEDS: LOVENOX 40 MG SC (18:39)
--- NOTE | 2025-05-15 19:19 | PHA.VAN.IN ---
Assessment
- Assessment
Renal Function: Appears similar to baseline
Concomitant Antimicrobials: PIPERACILLIN, ORAL FLUCONAZOLE AND VALACYCLOVIR
AUC Dosing Plan
- Dosing Variables
Dosing Weight (kg): 86.7
Dosing CrCl (ml/min): 75
Vd coefficient (L/kg): 0.7
- Empiric Dosing
Initial / Loading Dose: VANCOMYCIN 2000 MG IV ~ 1430
Maintenance Regimen: VANCOMYCIN 1750 MG IV Q24H
Estimated AUC (mcg*h/mL): 461
Estimated Peak (mcg*h/mL): 36.1
Estimated Trough (mcg/ml): 8.3
Estimated Half Life (H): 10.4
- Monitoring
No levels ordered at this time: Please consider levels in next few days.
Pharmacokinetics Vancomycin I
- -
Patient Age: 79
Patient Sex: Male
Vancomycin Day #: 1
Indication: Skin And Soft Tissue
Requesting Provider: Armani FORD
Height / Weight:
Height 5 ft 8 in
Actual Weight 86.7 kg
Pertinent Past Medical History: IDDM with worsening rash to the groin
- Vital Signs / Lab Results
Temp Pulse Resp BP Pulse Ox
97.6 F 82 16 122/62 95
05/15/25 17:56 05/15/25 17:56 05/15/25 17:56 05/15/25 17:56 05/15/25 17:56
Lab Results - Hematology
05/15/25
11:12
WBC 15.4 H
Lab Results - Chemistry
05/15/25
11:12
BUN 17
Creatinine 0.8
Albumin 3.7
05/15/25 05/15/25
11:12 15:15
Lactic Acid 1.7 Cancelled
Lab Results - Urine
05/15/25
17:30
Urine Nitrite (Reflex) Negative
Leukocyte Esterase Rfl Negative
Urine WBC (Reflex) 0-2
Ur Squamous Epith Cells 3-5
Urine Bacteria (Reflex) Few A
Microbiology Results
05/15/25 16:49 Gram Stain - Preliminary
Groin - Left
[2025-05-15] MEDS: VALTREX 1000 MG PO (20:21)
[2025-05-15] MEDS: COREG 25 MG PO (20:21)
[2025-05-15 21:20] LABS: Glucose - Point of Care 374 mg/dl (70-99)
[2025-05-15] MEDS: LANTUS 0.15 UNITS SC (22:18)
[2025-05-15] MEDS: LIPITOR 10 MG PO (22:18)
[2025-05-16] MEDS: ZOSYN 50 IV ×4 (02:11→20:37)
[2025-05-16] MEDS: TYLENOL 650 MG PO ×3 (02:11→17:22)
--- NOTE | 2025-05-16 03:22 | PTCARENOTE ---
pt has multiple wounds, especially the groin very inflamed, painful to touch, hard to do any pericare and perform hygiene, managed to do the parker wipes but very sensitive area;
[2025-05-16] MEDS: VANCOCIN 535 MG IV (05:54)
[2025-05-16 06:00] VITALS: BMI 28.9
[2025-05-16 07:50] VITALS: BP 127/56
[2025-05-16 08:07] LABS: Hematocrit 32.7 % (39.0-52.0); Hemoglobin 9.8 g/dL (13.0-18.0); Mean Corp Hgb Conc. 30.0 g/dL (33.0-37.0); Mean Corpuscular Volume 81.5 fL (80.0-94.0); Nucleated Red Blood Cells % 0 % (-); Platelet Count 518 10^3/uL (130-400); Red Cell Dist. Width 16.8 % (11.5-14.5)
[2025-05-16 08:33] LABS: ALT (SGPT) 12 U/L (0-50); AST (SGOT) 13 U/L (17-59); Albumin 3.0 g/dl (3.5-5.0); Alkaline Phosphatase 83 U/L (38-126); Blood Urea Nitrogen 23 mg/dl (9-20); Calcium 8.7 mg/dl (8.4-10.2); Carbon Dioxide 21 mmol/L (22-30); Chloride 101 mmol/L (98-107); Estimated Creatinine Clearance 75 ml/min; Glucose 252 mg/dl (70-99); Potassium 3.9 mmol/L (3.5-5.1); Sodium 130 mmol/L (135-145); Total Protein 6.1 g/dl (6.3-8.2); eGFR > 60.00
[2025-05-16] MEDS: NOVOLOG FLEXPEN-LOW RESISTANCE 2 UNITS SC ×2 (08:56→14:37)
[2025-05-16] MEDS: FARXIGA 10 MG PO (09:05)
[2025-05-16] MEDS: ASPIR LOW (ENTERIC COATED) 81 MG PO (09:05)
[2025-05-16] MEDS: PLAVIX 75 MG PO (09:05)
[2025-05-16] MEDS: PROTONIX 40 MG PO (09:05)
[2025-05-16] MEDS: FLOMAX 0.4 MG PO (09:05)
[2025-05-16] MEDS: VALTREX 1000 MG PO ×2 (09:05→20:37)
[2025-05-16] MEDS: COREG 25 MG PO ×2 (09:06→20:36)
[2025-05-16] MEDS: MIRALAX 17 GRAMS PO (09:06)
[2025-05-16 09:14] LABS: Glycohemoglobin (HgbA1c) 9.2 % (4.0-5.9)
[2025-05-16] MEDS: DIFLUCAN 150 MG PO (09:57)
--- NOTE | 2025-05-16 09:57 | PHA.VAN.FU ---
Vancomycin Assessment / Plan
- Assessment
Renal Function: Stable
WBC's are: Stable
In the past 24 hrs, patient has been: Afebrile
Concomitant Antimicrobials: fluconazole, piperacillin/tazobactam, valacyclovir
- Dosing Plan
Continue: Vanc 1750mg Q24H based on prior dosing experience
Patient previously had prolonged half-life calculation of 18.4 - 19.4
Renal function and weight stable compared to prior dosing experience
Vanc 1750mg Q24H provided therapeutic AUC (457) and Cmin (12.5)
- Monitoring Plan
No level(s) ordered at this time: consider levels in next few days
- Follow Up
Pharmacy will continue to follow.
Vancomycin Follow UP
- -
Patient Age: 79
Patient Sex: Male
Vancomycin Day #: 2
Indication: Skin And Soft Tissue
Requesting Provider: Armani FORD
Pertinent Antimicrobial Allergies:
no pertinent antibiotic allergies
Height / Weight:
Height 5 ft 8 in
Actual Weight 86.046 kg
Pertinent Past Medical History: DM 2
- Vital Signs / Lab Results
Temp Pulse Resp BP Pulse Ox
97.6 F 71 16 127/56 97
05/16/25 07:50 05/16/25 07:50 05/16/25 07:50 05/16/25 07:50 05/16/25 07:50
Lab Results - Hematology
05/15/25 05/16/25
11:12 06:28
WBC 15.4 H 15.2 H
Lab Results - Chemistry
05/15/25 05/16/25
11:12 06:28
BUN 17 23 H
Creatinine 0.8 0.8
Estimated Creat Clear 75
Albumin 3.7 3.0 L
05/15/25 05/15/25
11:12 15:15
Lactic Acid 1.7 Cancelled
Lab Results - Urine
05/15/25
17:30
Urine Nitrite (Reflex) Negative
Leukocyte Esterase Rfl Negative
Ur Squamous Epith Cells 3-5
Microbiology Results
05/15/25 16:49 Gram Stain - Preliminary
Groin - Left
--- NOTE | 2025-05-16 10:35 | W.PN.HOSP.TC ---
Today's Communication/Plan
-
pn
Assessment / Plan
Assessment / Plan
79yo M with CAD s/p PCI, dementia, HTN, HLD, diastolic CHF, PAD with non-healing b/l LE wounds s/p angioplasty and stent on 01/22/25, functional paraplegia, chronic ambulatory d/o, bedbound, FRANCESCO brought with concern of groin wounds and vesicles,
suspiscios for combined bacteria and fungal infection with possible herpes zoster
A/P:
#Bacterial scrotal cellulitis with superimposed fungal infection
#Possible herpes zoster in cee
VAnco/Zosyn
wound Cx (however superficial swab, unclear clinical significance due to possible colonizer contamination
Bcx
Diflucan
Valtrex
ID consult
wound care consult
#DM type 2 with circulatory complications
Insulin basa, SS, AccuCheck, DM diet
#dysphagia
chronic
dysphagia diet
#Chronic b/l LE wounds
#PAD
#Chronic HFpEF
#FRANCESCO
#Dementia, probably vascular
#Essential HTN
#CAD, stable
#HLD
cont home meds
#Constipation
laxatives
BM recorded on 05/16/25
#Chronic urinary retention
on Millan
#Reactive thrombocytosis
follow
#Abd wall hernia
non-incarcerated
DVT ppx lovenox
Full code
I have spent at least 59min reviewing chart, test results, communicatio with consultants, family and providing direct patient care
Anticipated Discharge: 24 - 48 hours
Subjective/Interval History
-
Date of Service: May 16, 2025
Objective Data
-
Labs:
Laboratory Results
05/16/25
06:28
WBC 15.2 H
Hgb 9.8 L
Hct 32.7 L
Plt Count 518 H
Sodium 130 L
Potassium 3.9
Chloride 101
Carbon Dioxide 21 L
BUN 23 H
Creatinine 0.8
Glucose 252 H
Calcium 8.7
Total Bilirubin 0.3
AST 13 L
ALT 12
Alkaline Phosphatase 83
Vital Signs:
Vital Signs
Temp Pulse Resp BP Pulse Ox
97.6 F 71 16 127/56 97
05/16/25 07:50 05/16/25 07:50 05/16/25 07:50 05/16/25 07:50 05/16/25 07:50
I&O
05/15/25 05/16/25 05/17/25
06:59 06:59 06:59
Intake Total 120 / 120
Output Total 2550 / 2550
Balance -2430 / -2430
Review of Systems
-
Unable to obtain full review of systems at this time due to: Dementia
History Source: Patient
Physical Exam
-
General: No Apparent Distress and Comfortable
HEENT: Moist Mucous Membranes
Respiratory: Clear to Auscultation
Skin: Other (b/l open wounds and redness in groin area)
Neuro: Awake, Alert, Oriented and AO x 3
--- NOTE | 2025-05-16 10:59 | PTOTSP ---
CHART REVIEWED. PATIENT LAST SEEN BY THIS DEPARTMENT >1 YEAR AGO PATIENT IS NOW BEDBOUND AND DOES NOT SIT OUT OF BED IN CHAIR OR AMBULATE PER PREVIOUS ADMISSIONS CASE MANAGEMENT NOTES. WILL DISCHARGE FROM P.T. SERVICES THERAPY NOT INDICATED.
[2025-05-16] MEDS: TYLENOL PO (12:38)
--- NOTE | 2025-05-16 14:05 | CON.ID ---
Addendum entered and electronically signed by Senia Nettles MD 05/16/25 14:48:
daughter refused take down of the bilateral lower extremity dressings due to pain
I have asked RN to notify me when dressing change is being done tomorrow for evaluation
the dressings are clean, dry and intact
Original Note:
Consultation
-
Date/Time Consultation Requested: 05/15/25 17:46
Date/Time Consultation Performed: 05/16/25 14:06
Requesting Provider: Armani FISCHER
Performing Provider: Dr Nettles
Reason for Consultation: groing fungal/cellulitis/vesicular rash
Chief Complaint / Past History
Chief Complaint
severe bilateral groin rash
History of Present Illness
Mr Dumont is a 79 year old [place]i speaking male with history of DM2, dementia, functional quadriplegia who presented here last night for about a week of worsening rash of the groin with ulcerations on the scrotum and purulent discharge. No
fevers. He reports burning and itching of the area. 4 days ago he had parker placed. There is no known history of HSV. The patient has been confused. He was assessed outpatient as having leukocytosis, UTI and VENANCIO and was started on
ciprofloxacin, nystatin and zinc oxide. On 05/14 he had a single dose of fluconazole 150 mg. Also of note with chronic bilateral lower extremity and sacral wound.
Since arrival here he has been afebrile, bp stable, wbc initially 15.4, hgb 11.4, plt 518, no L shift, na 131, cr 0.8, t bili 0.3, ast 13, alt 11, alk phos 90, UA no pyuria, few bacteria, CT a/p with IV contrast: parker balloon inflated within the
urethra, constipation/impaction, parker was removed in the ER, blood cultures x2 done and one set with S epidermidis, wound culture in progress, HSV 1/2 PCR sent, a MRSA screen is pending. He is currently on vancomycin, zosyn, valacyclovir and
fluconazole 150 mg PO Qday x3 days
Past History
Additional Past Medical History:
DM2
CAD
CHF preserved EF
HTN
HLD
GERD
PVD with prior history of lower extremity revascularization bilaterally SFA stents
sepsis/LLE cellulitis superficial wounds December 2024
chronic lymphedema
Chronic bilateral leg wounds
BPH
Dementia�mild per daughter
chronic ambulatory dysfunction bedwetting at group home
history of stage III�stage IV left posterior heel ulcer December 2024�resolved
protein calorie malnutrition mild this moderate
FRANCESCO-daughter believes resolved does not on any oxygen
Mechanical soft diet thin liquids needs to sit 90 degrees upright
Additional Past Surgical History:
Bilateral legs revascularization with SFA stents
Allergy History:
acetic acid Allergy (Verified 12/26/24 14:42)
Unknown
hydromorphone Allergy (Verified 12/26/24 14:42)
Unknown
iodine Allergy (Verified 12/26/24 14:42)
Unknown
morphine Allergy (Verified 12/26/24 14:42)
Unknown
Medications Reviewed: Yes
Social History
Tobacco: Former Smoker
Alcohol: None
Drug: None
Family History
Family History: Not Pertinent
Review of Systems
Review of Systems
Constitutional: Denies Fever or Chills
EENT: Denies Sore Throat or Runny Nose
Respiratory: Denies Cough or Trouble Breathing
Cardiac: Denies Chest Pain, Diaphoresis or Palpitations
Abdomen/GI: Denies Abdominal Pain, Nausea, Vomiting or Diarrhea
: Denies Dysuria
Musculoskeletal: Reports Other (Chronic bilateral leg anterior wounds dressed with dressing and heel boots in place present on admission); Denies Joint Pain
Skin: Denies Itching
Neurological: Denies Dizzy or Headache
Endocrine: Reports No Symptoms
Hematologic/Lymphatic: Reports No Symptoms
Psych: Reports Calm
Vital Signs
Temp Pulse Resp BP Pulse Ox
97.6 F 71 16 127/56 97
05/16/25 07:50 05/16/25 07:50 05/16/25 07:50 05/16/25 07:50 05/16/25 07:50
Physical Exam
Physical Exam
Constitutional: No Acute Distress
Cardiovascular: Regular Rate and S1/S2; Negative Murmur or Rub
Pulmonary: Clear and Symmetric; Negative Wheezes, Rales or Rhonchi
Gastrointestinal: Soft, Non Tender, Non Distended and Normal Bowel Sounds
Skin: Warm and Dry; Negative Rash or Jaundice
Wound: Other (scrotum with numerous shallow ulcerations with greenish drainage, intertrigo under the panus with ulcerations)
Lab / Diagnostic Study Results
05/16/25 06:28
05/16/25 06:28
Abs Immat Gran (auto) 0.1 10^3/uL (0-0.05) H 05/16/25 06:28
Absolute Neuts (auto) 11.1 10^3/uL (1.4-6.5) H 05/16/25 06:28
Absolute Lymphs (auto) 2.1 10^3/uL (1.2-3.4) 05/16/25 06:28
Absolute Monos (auto) 1.9 10^3/uL (0.1-0.6) H 05/16/25 06:28
Absolute Basos (auto) 0.1 10^3/uL (0-0.2) 05/16/25 06:28
Immature Gran % 0.5 % (0-0.5) 05/16/25 06:28
Neutrophils % 72.6 % (42.2-75.2) 05/16/25 06:28
Lymphocytes % 13.9 % (20.5-51.1) L 05/16/25 06:28
Monocytes % 12.1 % (1.7-9.3) H 05/16/25 06:28
Eosinophils % 0.3 % (0-6) 05/16/25 06:28
Basophils % 0.6 % (0-2) 05/16/25 06:28
Lactic Acid Cancelled 05/15/25 15:15
Ur Squamous Epith Cells 3-5 /LPF (Few) 05/15/25 17:30
Microbiology Results
Micro:
05/15/25 11:48 Blood Culture - Preliminary
Blood/Venous Staphylococcus epidermidis
Gram Stain - Preliminary
05/15/25 16:49 Wound Culture - Preliminary
Groin - Left Gram Stain - Preliminary
05/15/25 11:12 Blood Culture - Preliminary
Blood/Venous No Growth in 24 hours- Final report to follow
05/15/25 20:05 MRSA Screen - Pending
Nose
Assessment / Plan
Intertrigo
Superimposed cellulitis
Vesicular rash of the penis and scrotum
- wound culture in progress
- 1 of 2 sets of blood cultures with s epidermidis - contamination
- HSV PCR
- parker was reinserted
- currently on diflucan 150 mg PO x3 days; beyond this would give 150 mg weekly dose for 4 weeks
- continue vancomycin and zosyn pending wound cultures
- continue valacyclovir 1000 mg PO BID x7 days
- wound care consult
[2025-05-16 15:45] VITALS: BP 131/53
[2025-05-16] MEDS: LOVENOX 40 MG SC (17:22)
[2025-05-16] MEDS: NOVOLOG FLEXPEN-LOW RESISTANCE 4 UNITS SC (17:23)
[2025-05-16] MEDS: LANTUS 0.15 UNITS SC (21:33)
[2025-05-16] MEDS: LIPITOR 10 MG PO (21:34)
[2025-05-16 23:50] VITALS: BP 134/57
[2025-05-17] MEDS: TYLENOL PO ×2 (01:06→13:34)
[2025-05-17] MEDS: ZOSYN 50 IV ×4 (02:17→20:52)
[2025-05-17] MEDS: VANCOCIN 535 MG IV (05:49)
[2025-05-17] MEDS: TYLENOL 650 MG PO (05:49)
[2025-05-17 06:00] VITALS: BMI 29.4
[2025-05-17 06:52] LABS: Hematocrit 30.7 % (39.0-52.0); Hemoglobin 9.6 g/dL (13.0-18.0); Mean Corp Hgb Conc. 31.3 g/dL (33.0-37.0); Mean Corpuscular Volume 81.9 fL (80.0-94.0); Nucleated Red Blood Cells % 0 % (-); Platelet Count 503 10^3/uL (130-400); Red Cell Dist. Width 16.9 % (11.5-14.5)
[2025-05-17 07:08] LABS: ALT (SGPT) 13 U/L (0-50); AST (SGOT) 15 U/L (17-59); Albumin 2.9 g/dl (3.5-5.0); Alkaline Phosphatase 70 U/L (38-126); Blood Urea Nitrogen 18 mg/dl (9-20); Calcium 8.6 mg/dl (8.4-10.2); Carbon Dioxide 22 mmol/L (22-30); Chloride 104 mmol/L (98-107); Estimated Creatinine Clearance 86 ml/min; Glucose 150 mg/dl (70-99); Potassium 4.2 mmol/L (3.5-5.1); Sodium 133 mmol/L (135-145); Total Protein 6.0 g/dl (6.3-8.2); eGFR > 60.00
--- NOTE | 2025-05-17 07:24 | PHA.VAN.FU ---
Vancomycin Assessment / Plan
- Assessment
Renal Function: Stable
WBC's are: Trending Down
In the past 24 hrs, patient has been: Afebrile
Concomitant Antimicrobials: fluconazole, piperacillin/tazobactam, valacyclovir
- Dosing Plan
Continue: Vanc 1750mg Q24H
- Monitoring Plan
No level(s) ordered at this time: consider levels in next few days
- Follow Up
Pharmacy will continue to follow.
Vancomycin Follow UP
- -
Patient Age: 79
Patient Sex: Male
Vancomycin Day #: 3
Indication: Skin And Soft Tissue
Requesting Provider: Armani FORD
Pertinent Antimicrobial Allergies:
no pertinent antibiotic allergies
Height / Weight:
Height 5 ft 8 in
Actual Weight 87.543 kg
Pertinent Past Medical History: DM 2
- Vital Signs / Lab Results
Temp Pulse Resp BP Pulse Ox
97.6 F 79 18 134/57 97
05/16/25 23:50 05/16/25 23:50 05/16/25 23:50 05/16/25 23:50 05/17/25 00:30
Lab Results - Hematology
05/15/25 05/16/25 05/17/25
11:12 06:28 06:27
WBC 15.4 H 15.2 H 11.7 H
Lab Results - Chemistry
05/15/25 05/16/25 05/17/25
11:12 06:28 06:27
BUN 17 23 H 18
Creatinine 0.8 0.8 0.7
Estimated Creat Clear 75 86
Albumin 3.7 3.0 L 2.9 L
05/15/25 05/15/25
11:12 15:15
Lactic Acid 1.7 Cancelled
Microbiology Results
05/15/25 11:48 Blood Culture - Preliminary
Blood/Venous Staphylococcus epidermidis
Gram Stain - Preliminary
05/15/25 16:49 Wound Culture - Preliminary
Groin - Left Gram Stain - Preliminary
05/15/25 11:12 Blood Culture - Preliminary
Blood/Venous No Growth in 24 hours- Final report to follow
[2025-05-17] MEDS: BENADRYL 25 MG IV ×2 (07:37→14:45)
[2025-05-17 07:50] VITALS: BP 165/64
--- NOTE | 2025-05-17 08:10 | W.PN.HOSP.TC ---
Today's Communication/Plan
-
cont Abx, diflucan, Valtrex
avoid any cream on inguinal area
pain mgmt for wound care
Assessment / Plan
Assessment / Plan
79yo M with CAD s/p PCI, dementia, HTN, HLD, diastolic CHF, PAD with non-healing b/l LE wounds s/p angioplasty and stent on 01/22/25, functional paraplegia, chronic ambulatory d/o, bedbound, FRANCESCO brought with concern of groin wounds and vesicles,
suspicious for combined bacteria and fungal infection with possible herpes
A/P:
#Bacterial scrotal cellulitis with superimposed fungal infection
#Possible herpes zoster in groin
VAnco/Zosyn
wound Cx (however superficial swab, unclear clinical significance due to possible colonizer contamination
Bcx: Staph epidermdis in1 bottle -contamination as agreed with ID
Diflucan x3 days then weekly x4-6 weeks
Valtrex x7 days
ID consult
wound care consult
#DM type 2 with circulatory complications
Insulin basa, SS, AccuCheck, DM diet
#dysphagia
chronic
dysphagia diet
#Chronic b/l LE wounds
#PAD
#Chronic HFpEF
#FRANCESCO
#Dementia, probably vascular
#Essential HTN
#CAD, stable
#HLD
cont home meds
#Constipation
laxatives
BM recorded on 05/16/25
#Chronic urinary retention
on Millan
#Reactive thrombocytosis
follow
#Abd wall hernia
non-incarcerated
DVT ppx lovenox
Full code
I have spent at least 51min reviewing chart, test results, communicatio with consultants, family and providing direct patient care
Anticipated Discharge: > 48 hours
Subjective/Interval History
-
Date of Service: May 17, 2025
Objective Data
-
Labs:
Laboratory Results
05/17/25
06:27
WBC 11.7 H
Hgb 9.6 L
Hct 30.7 L
Plt Count 503 H
Sodium 133 L
Potassium 4.2
Chloride 104
Carbon Dioxide 22
BUN 18
Creatinine 0.7
Glucose 150 H
Calcium 8.6
Total Bilirubin 0.2
AST 15 L
ALT 13
Alkaline Phosphatase 70
Vital Signs:
Vital Signs
Temp Pulse Resp BP Pulse Ox
97.6 F 79 18 134/57 97
05/16/25 23:50 05/16/25 23:50 05/16/25 23:50 05/16/25 23:50 05/17/25 00:30
I&O
05/16/25 05/17/25 05/18/25
06:59 06:59 06:59
Intake Total 120 / 120 880 / 880
Output Total 2550 / 2550 3500 / 3500
Balance -2430 / -2430 -2620 / -2620
Review of Systems
-
History Source: Patient
All other systems: Reviewed and negative
Physical Exam
-
General: Comfortable
HEENT: Normocephalic
GI: Soft, Nontender and Nondistended
Skin: Other (redness, excoriations and exudate from inflamed skin inguinal area)
Neuro: Awake, Alert and Oriented
Psych: Apparent Dementia
[2025-05-17 08:27] LABS: Glucose - Point of Care 248 mg/dl (70-99)
[2025-05-17 08:27] LABS: Glucose - Point of Care 224 mg/dl (70-99)
[2025-05-17 08:27] LABS: Glucose - Point of Care 328 mg/dl (70-99)
[2025-05-17] MEDS: COREG 25 MG PO ×2 (08:27→20:53)
[2025-05-17] MEDS: DIFLUCAN 150 MG PO (08:27)
[2025-05-17] MEDS: PROTONIX 40 MG PO (08:27)
[2025-05-17] MEDS: PLAVIX 75 MG PO (08:27)
[2025-05-17] MEDS: MIRALAX 17 GRAMS PO (08:27)
[2025-05-17 08:28] LABS: Glucose - Point of Care 238 mg/dl (70-99)
[2025-05-17] MEDS: ASPIR LOW (ENTERIC COATED) 81 MG PO (08:28)
[2025-05-17] MEDS: VALTREX 1000 MG PO ×2 (08:28→20:53)
[2025-05-17] MEDS: FLOMAX 0.4 MG PO (08:28)
[2025-05-17] MEDS: NOVOLOG FLEXPEN-LOW RESISTANCE 2 UNITS SC (08:39)
[2025-05-17 08:40] LABS: Glucose - Point of Care 225 mg/dl (70-99)
--- NOTE | 2025-05-17 10:17 | CM ---
CM spoke with nurse at [facility]
Pt is a LTC resident on [place] bed-hold
Pt is non-ambulatory/bedbound/mango transfers
He requires assist in all personal care- he is able to feeds self and participate in turning/repositioning in bed
Pt with dementia, mostly alert to person and place
Pt follows with speech at SNF for dysphagia and wound care (B/L leg wounds noted along with stage III sacrum at SNF)
PCP- Esequiel patel
Rx- [facility]
Discharge Disposition-return to [facility] for LTC
[2025-05-17] MEDS: OFIRMEV 100 IV (13:32)
[2025-05-17 13:48] VITALS: BMI 29.4
[2025-05-17] MEDS: NOVOLOG FLEXPEN-LOW RESISTANCE 1 UNITS SC (13:57)
--- NOTE | 2025-05-17 14:03 | W.PN.ID1 ---
Date of Service
Date of Service: May 17, 2025
Today's Communication
- continue diflucan 150 mg PO weekly dose for 4 weeks
- continue vancomycin and zosyn pending wound cultures
- continue valacyclovir 1000 mg PO BID x7 days
- wound care consult
- please notify me if/when patient allows dressing take down of the legs and sacral area
Assessment / Plan
Intertrigo
Superimposed cellulitis
Vesicular rash of the penis and scrotum
- wound culture in progress- polymicrobial as expected
- lab will ID the staph
- 1 of 2 sets of blood cultures with s epidermidis - contamination
- HSV PCR pending
- parker was reinserted
- continue diflucan 150 mg PO weekly dose for 4 weeks
- continue vancomycin and zosyn pending wound cultures
- continue valacyclovir 1000 mg PO BID x7 days
- wound care consult
- please notify me if/when patient allows dressing take down of the legs and sacral area
Chief Complaint
-: Other (intertrigo and cellulitis)
Subjective / Review of Systems
afebrile
bp stable
tolerating current therapies
adamantly refuses dressing take down of the bilateral legs and refuses turn for evaluation of the sacral area
Vital Signs / Physical Exam
Vital Signs
Vital Signs
Temp Pulse Resp BP Pulse Ox
98.7 F 82 16 165/64 96
05/17/25 07:50 05/17/25 07:50 05/17/25 07:50 05/17/25 07:50 05/17/25 07:50
Physical Exam
Constitutional: No Acute Distress
Cardiovascular: Regular Rate and S1/S2; Negative Murmur or Rub
Pulmonary: Clear and Symmetric; Negative Wheezes or Rales
Gastrointestinal: Soft, Non Tender, Non Distended and Normal Bowel Sounds
Genito-Urinary: Other (scrotum with numerous shallow ulcerations with greenish drainage, intertrigo under the panus with ulcerations; less erythema of the area today)
Skin: Warm and Dry; Negative Rash or Jaundice
Objective Data
Lab Data
Lab Results
05/17/25 06:27
05/17/25 06:27
Estimated Creat Clear 86 ml/min 05/17/25 06:27
Lactic Acid Cancelled 05/15/25 15:15
Total Bilirubin 0.2 mg/dl (0.2-1.3) 05/17/25 06:27
AST 15 U/L (17-59) L 05/17/25 06:27
ALT 13 U/L (0-50) 05/17/25 06:27
Alkaline Phosphatase 70 U/L (38-126) 05/17/25 06:27
Most recent labs reviewed.
Micro Results:
05/15/25 11:12 Blood Culture - Preliminary
Blood/Venous No Growth in 48 hours- Final report to follow
05/15/25 16:49 Wound Culture - Preliminary
Groin - Left Gram negative bacilli
Staphylococcus species
Streptococcus species
Additional testing on request
Gram Stain - Preliminary
05/15/25 11:48 Blood Culture - Preliminary
Blood/Venous Staphylococcus epidermidis
Gram Stain - Preliminary
05/15/25 20:05 MRSA Screen - Final
Nose No Methicillin Resistant Staphylococcus aureus isolated.
[2025-05-17 15:50] VITALS: BP 145/68
--- NOTE | 2025-05-17 16:45 | PTCARENOTE ---
pt refused dressing change to his b/l legs, very minimal hygiene performed to his bottom and sacrum, he is in a lot of discomfort, DR Aragon changed the Tylenol from PO to IV to help manage, IV Benadryl given for itchiness.
[2025-05-17] MEDS: LOVENOX 40 MG SC (17:58)
[2025-05-17] MEDS: NOVOLOG FLEXPEN-LOW RESISTANCE 3 UNITS SC (17:59)
[2025-05-17 19:00] VITALS: BP 172/66
[2025-05-17] MEDS: LIPITOR 10 MG PO (21:02)
[2025-05-17] MEDS: LANTUS 0.18 UNITS SC (22:01)
[2025-05-17 23:00] VITALS: BP 143/58
--- NOTE | 2025-05-18 00:12 | PTCARENOTE ---
Pt refused dressing change to B/L LEs and parker care d/t pain. Pain medication offered but pt refused.
[2025-05-18] MEDS: ZOSYN 50 IV ×4 (01:58→19:45)
[2025-05-18] MEDS: VANCOCIN 535 MG IV (05:32)
[2025-05-18 07:00] VITALS: BP 137/50
--- NOTE | 2025-05-18 08:38 | W.PN.ID1 ---
Date of Service
Date of Service: May 18, 2025
Today's Communication
- continue diflucan 150 mg PO weekly dose for 4 weeks
- continue zosyn, stop vancomycin
- continue valacyclovir 1000 mg PO BID x14 days 05/15-05/28
Assessment / Plan
Intertrigo
Superimposed cellulitis
Vesicular rash of the penis and scrotum- possible HSV
DM2
- wound culture in progress- polymicrobial as expected: GNR, MSSA, strep
- 1 of 2 sets of blood cultures with s epidermidis - contamination
- HSV PCR pending
- parker was reinserted
- continue diflucan 150 mg PO weekly dose for 4 weeks
- continue zosyn, stop vancomycin
- continue valacyclovir 1000 mg PO BID x14 days 05/15-05/28
- appreciate wound care consult
- would tighten blood glucose control to promote healing
Chief Complaint
-: Other (intertrigo and cellulitis)
Subjective / Review of Systems
afebrile
bp stable
dressing change of the legs and evaluation of the buttocks
Vital Signs / Physical Exam
Vital Signs
Vital Signs
Temp Pulse Resp BP Pulse Ox
98.5 F 81 16 143/58 98
05/17/25 23:00 05/17/25 23:00 05/17/25 23:00 05/17/25 23:00 05/17/25 23:54
Physical Exam
Constitutional: No Acute Distress
Cardiovascular: Regular Rate and S1/S2; Negative Murmur or Rub
Pulmonary: Clear and Symmetric; Negative Wheezes or Rales
Gastrointestinal: Soft, Non Tender, Non Distended and Normal Bowel Sounds
Genito-Urinary: Other (scrotum with numerous superficial ulcerations with serous drainage; intertrigo around the groin)
Skin: Warm and Dry; Negative Rash or Jaundice
Wound: Other (bilateral lower extremities with superifical, bleeding ulcerations, visible tendon over the left achilles, legs without erythema, warmth or purulence; buttocks erythematous, shallow sacral decubitus ulcer without visible bone; sacral
area erythematous and was contaminated with stool)
Neurological: Awake and Alert
Objective Data
Lab Data
Lab Results
05/17/25 06:27
Estimated Creat Clear 86 ml/min 05/17/25 06:27
Lactic Acid Cancelled 05/15/25 15:15
Total Bilirubin 0.2 mg/dl (0.2-1.3) 05/17/25 06:27
AST 15 U/L (17-59) L 05/17/25 06:27
ALT 13 U/L (0-50) 05/17/25 06:27
Alkaline Phosphatase 70 U/L (38-126) 05/17/25 06:27
Most recent labs reviewed.
Micro Results:
05/15/25 11:48 Blood Culture - Preliminary
Blood/Venous Staphylococcus epidermidis
Gram Stain - Preliminary
05/15/25 16:49 Wound Culture - Preliminary
Groin - Left Gram negative bacilli
Staphylococcus aureus
Streptococcus species
Additional testing on request
Gram Stain - Preliminary
05/15/25 11:12 Blood Culture - Preliminary
Blood/Venous No Growth in 48 hours- Final report to follow
05/15/25 20:05 MRSA Screen - Final
Nose No Methicillin Resistant Staphylococcus aureus isolated.
Care Review
Plan reviewed with: Physician (Dr Sutotn - [facility])
[2025-05-18 08:45] LABS: Glucose - Point of Care 194 mg/dl (70-99)
[2025-05-18 08:45] LABS: Glucose - Point of Care 233 mg/dl (70-99)
[2025-05-18 08:45] LABS: Glucose - Point of Care 264 mg/dl (70-99)
--- NOTE | 2025-05-18 09:15 | CM ---
CM following patient who is LTC at [facility]. Pt's daughter is very supportive, can be somewhat demanding at times, typically due to wanting her father to return to [facility], as 'he is more at home at [facility]'.
Plan: Pt will return to [facility] LTC when medically stable.
[2025-05-18] MEDS: PLAVIX 75 MG PO (09:28)
[2025-05-18] MEDS: COREG 25 MG PO ×2 (09:28→19:45)
[2025-05-18] MEDS: PROTONIX 40 MG PO (09:28)
[2025-05-18] MEDS: FLOMAX 0.4 MG PO (09:29)
[2025-05-18] MEDS: ASPIR LOW (ENTERIC COATED) 81 MG PO (09:29)
[2025-05-18] MEDS: NOVOLOG FLEXPEN-LOW RESISTANCE SC ×2 (09:29→17:38)
[2025-05-18] MEDS: VALTREX 1000 MG PO ×2 (09:29→19:45)
[2025-05-18] MEDS: MIRALAX PO (09:30)
--- NOTE | 2025-05-18 09:40 | PHA.VAN.FU ---
Vancomycin Assessment / Plan
- Assessment
Renal Function: Stable
In the past 24 hrs, patient has been: Afebrile
Concomitant Antimicrobials: Fluconazole, Zosyn, valacyclovir
- Dosing Plan
Continue: 1750MG Q24H
Dosing Comments: No CBC drawn this morning
- Monitoring Plan
Peak Level: 05/19/25 @1000
Trough Level: 05/20/25 @0530
- Follow Up
Pharmacy will continue to follow.
Vancomycin Follow UP
- -
Patient Age: 79
Patient Sex: Male
Vancomycin Day #: 4
Indication: Skin And Soft Tissue
Requesting Provider: Armani FORD
Pertinent Antimicrobial Allergies:
no pertinent antibiotic allergies
Height / Weight:
Height 5 ft 8 in
Actual Weight 87.543 kg
Pertinent Past Medical History: DM 2
- Vital Signs / Lab Results
Temp Pulse Resp BP Pulse Ox
97.5 F 74 18 137/50 97
05/18/25 07:00 05/18/25 07:00 05/18/25 07:00 05/18/25 07:00 05/18/25 07:00
Lab Results - Hematology
05/15/25 05/16/25 05/17/25
11:12 06:28 06:27
WBC 15.4 H 15.2 H 11.7 H
Lab Results - Chemistry
05/15/25 05/16/25 05/17/25
11:12 06:28 06:27
BUN 17 23 H 18
Creatinine 0.8 0.8 0.7
Estimated Creat Clear 75 86
Albumin 3.7 3.0 L 2.9 L
05/15/25 05/15/25
11:12 15:15
Lactic Acid 1.7 Cancelled
Microbiology Results
05/15/25 11:48 Blood Culture - Preliminary
Blood/Venous Staphylococcus epidermidis
Gram Stain - Preliminary
05/15/25 16:49 Wound Culture - Preliminary
Groin - Left Gram negative bacilli
Staphylococcus aureus
Streptococcus species
Additional testing on request
Gram Stain - Preliminary
05/15/25 11:12 Blood Culture - Preliminary
Blood/Venous No Growth in 48 hours- Final report to follow
05/15/25 20:05 MRSA Screen - Final
Nose No Methicillin Resistant Staphylococcus aureus isolated.
[2025-05-18] MEDS: OFIRMEV 100 IV (10:55)
--- NOTE | 2025-05-18 12:07 | WOUNDNOTE ---
R CALF (POSTERIOR LATERAL)
--- NOTE | 2025-05-18 12:08 | WOUNDNOTE ---
RLE (LATERAL POSTERIOR)
--- NOTE | 2025-05-18 12:09 | WOUNDNOTE ---
R CALF/ANKLE (POSTERIOR)
--- NOTE | 2025-05-18 12:09 | WOUNDNOTE ---
RLE (POSTERIOR LATERAL)
--- NOTE | 2025-05-18 12:10 | WOUNDNOTE ---
SACRAL/BUTTOCKS/BRUCE
--- NOTE | 2025-05-18 12:11 | WOUNDNOTE ---
PERINEUM (with photo flash)
--- NOTE | 2025-05-18 12:12 | WOUNDNOTE ---
ABDOMEN(lower)/GROIN
--- NOTE | 2025-05-18 12:13 | WOUNDNOTE ---
L FOREFOOT (PLANTAR)/1ST TOE TIP
--- NOTE | 2025-05-18 12:13 | WOUNDNOTE ---
L GREAT TOE TIP
--- NOTE | 2025-05-18 12:18 | WOUNDNOTE ---
[facility] RN note: Patient admitted with severe abdominal/groin/penile cellulitis/fungal infection and possible herpetic rash. Patient resides at [facility].
See H&P for complete history.
PMH: CHF, HTN, MS, PAD, 01/22/25 LLE angioplasty/stent, 04/21/24 RLE angioplasty/stent, heel debridement, 04/15/24 LLE angioplasty/stent, GERD, prstatic hypertrophy, CKD, bedbound, sacral pressure injury, IDDM, obesity.
Wound Location and type/assessment: Patient admitted with: Stage 3 or 4 sacral pressure injury to subcutaneous layer or muscle, pink. Scattered dermal ulcers on sacral/buttocks suspect r/t moisture and friction/pressure. Heels blanchable red. R
heel with cracked dry skin. R Achilles full thickness wound with tendon exposure r/t PAD. Bilateral calf full thickness wounds to subcutaneous layer r/t PAD, venous stasis. Trace pedal edema. L pedal pulse heard via portable Doppler. Unable to hear
R pedal pulse. R PT pulse heard via portable Doppler. Toes slightly warm. L great toe tip with dry necrotic ulcer. Lower abdominal fold/groin/penile and scrotum with MASD, fungal rash and suspect possible herpetic vs bacterial related dermal ulcers.
Herpetic culture pending. Patient on antibiotic, antifungal and antiviral medication.
Appetite: fair/good.
Pressure redistribution devices in place: Static air overlay mattress. TruVue lite boots. Patient resistant to turning.
Plan: Patient incontinent of large soft/loose brown stool. Kavita care given, linen and underpad change with help from JOHN Calvillo and DASHAWN Whiting. Dr. Nettles was in to assess patient's skin. Sacral dressing changed. LE dressings changed. TruVue lite
boots reapplied. t/c SPD and ordered bariatric air chair cushion. Discussed with PCT Johanne re: can use to off load heels while boots off. Dr. Sutton was in toward end of visit, discussed skin/wounds, updated re: unable to hear R pedal pulse, R PT
pulse heard via portable Doppler, L pedal pulse heard via portable Doppler. Patient's last arterial Doppler 01/2025. Defer to hospitalist if inpatient vs outpatient vascular follow up indicated.
Confirmed orders with hospitalist and discussed with JOHN Calvillo.
Care plan to be updated and will follow as needed.
Note to case management of equipment requested for discharge: Air mattress at SNF if not already in place.
Recommend follow up with wound childcare attendant upon discharge.
[2025-05-18 12:50] LABS: Hematocrit 31.3 % (39.0-52.0); Hemoglobin 9.5 g/dL (13.0-18.0); Mean Corp Hgb Conc. 30.4 g/dL (33.0-37.0); Mean Corpuscular Volume 82.6 fL (80.0-94.0); Nucleated Red Blood Cells % 0 % (-); Platelet Count 502 10^3/uL (130-400); Red Cell Dist. Width 16.8 % (11.5-14.5)
[2025-05-18] MEDS: NOVOLOG FLEXPEN-LOW RESISTANCE 2 UNITS SC (14:01)
--- NOTE | 2025-05-18 14:19 | W.PN.HOSP.TC ---
Addendum entered and electronically signed by Prasanth Sutton MD 05/19/25 10:01:
Severe intertrigo wolfe
Original Note:
Today's Communication/Plan
-
Antibiotics
Wound care
Adjust insulin regimen for hyperglycemia
Continue preadmission ASCVD regimen
Assessment / Plan
Assessment / Plan
79yo M with CAD s/p PCI, dementia, HTN, HLD, diastolic CHF, PAD with non-healing b/l LE wounds s/p angioplasty and stent on 01/22/25, functional paraplegia, chronic ambulatory d/o, bedbound, FRANCESCO brought with concern of groin wounds and vesicles,
suspicious for combined bacteria and fungal infection with possible herpes
Impression:
Severe impetigo.
Superimposing cellulitis.
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
Sacral pressure ulcer stage III present on admission
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
Other conditions
PAD with prior history of lower extremity revascularization bilaterally.
Type 2 diabetes.
Essential hypertension.
GERD.
BPH baseline obstructive sleep apnea.
Protein calorie malnutrition, mild to moderate.
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
Chronic ambulatory disorder, bedridden [facility]iary resident
Plan
Intertrigo
Superimposing scrotal/inguinal area cellulitis
Penile vesicular rash with concern for HSV.
Staph epidermidis 1/2 in cultures likely contaminant
Continue local care.
Continue Diflucan
Antibiotics narrowed from vancomycin and Zosyn to Zosyn alone.
Continue valacyclovir for total of 14 days pending HSV PCR
Continue daily wound care with analgesia
Millan catheter inserted on admission to avoid wound contamination. Continue.
PAD with multiple revascularizations lower extremities per
Chronic wounds. No evidence for infection.
Continue wound care.
Continue Plavix and aspirin
ASCVD
Preadmission regimen including Coreg, statin, DAPT
Type 2 diabetes
Hemoglobin A1c 9.2
Continue insulin Lantus adjusting the dose.
Continue basal bolus protocol
Hold SGLT2 inhibitor acutely
#dysphagia
Remains with aspiration risk
chronic
dysphagia diet
Anticipated Discharge: > 48 hours
Subjective/Interval History
-
Date of Service: May 18, 2025
Objective Data
-
Labs:
Laboratory Results
05/18/25
12:35
WBC 12.9 H
Hgb 9.5 L
Hct 31.3 L
Plt Count 502 H
Vital Signs:
Vital Signs
Temp Pulse Resp BP Pulse Ox
97.5 F 74 18 137/50 97
05/18/25 07:00 05/18/25 07:00 05/18/25 07:00 05/18/25 07:00 05/18/25 07:00
I&O
05/17/25 05/18/25 05/19/25
06:59 06:59 06:59
Intake Total 880 / 880 770 / 770
Output Total 3500 / 3500 2900 / 2900
Balance -2620 / -2620 -2130 / -2130
Physical Exam
-
General: Well Developed and No Apparent Distress
HEENT: Normocephalic, Atraumatic and Moist Mucous Membranes
Respiratory: Clear to Auscultation
Cardiac: Regular Rhythm and S1/S2; Negative Murmur, Rub or Gallop
GI: Soft, Nontender, Nondistended and Normal Bowel Sounds; Negative Organomegaly
Rectal: Deferred by Provider
Musculoskeletal: No Clubbing, No Cyanosis and No Edema
Skin: Negative Rash
Neuro: Nonfocal/Grossly Intact
[2025-05-18 15:00] VITALS: BP 133/50
[2025-05-18] MEDS: BENADRYL 25 MG IV (16:57)
[2025-05-18] MEDS: LOVENOX SC (17:08)
[2025-05-18 17:40] LABS: Glucose - Point of Care 206 mg/dl (70-99)
--- NOTE | 2025-05-18 17:45 | PTCARENOTE ---
patient refused multiple medications and accu checks throughout the shift. aware. unable to cover the blood sugar, no accu check reading available. daughter Krystyna asked to make a request for Vale from phlebotomy to draw patient's labs in AM
and only Min and Arthur from IV team for IV insertion. this RN explained the family that these requests could not always be filled due to different schedules and staff availability
--- NOTE | 2025-05-18 17:48 | PTCARENOTE ---
daughter refused desitin cream and antifungal cream application. requested to pass it on to the next shift to keep the groin area clean with soap and water and do not use any ointments.
[2025-05-18] MEDS: LIDOCAINE URO-JET 2% TOPICAL (19:47)
[2025-05-18] MEDS: ANTIFUNGAL CLEAR 1 APPLIC TOPICAL (19:47)
[2025-05-18] MEDS: LIPITOR 10 MG PO (21:41)
[2025-05-18] MEDS: LANTUS 0.18 UNITS SC (21:43)
[2025-05-18 22:05] LABS: Glucose - Point of Care 232 mg/dl (70-99)
[2025-05-18 23:29] VITALS: BP 114/40
[2025-05-19] MEDS: ZOSYN 50 IV ×2 (01:08→10:08)
[2025-05-19] MEDS: OFIRMEV 100 IV (02:19)
[2025-05-19 05:42] VITALS: BMI 29.4
[2025-05-19 06:34] LABS: Blood Urea Nitrogen 13 mg/dl (9-20); Calcium 8.8 mg/dl (8.4-10.2); Carbon Dioxide 24 mmol/L (22-30); Chloride 106 mmol/L (98-107); Estimated Creatinine Clearance 100 ml/min; Glucose 150 mg/dl (70-99); Potassium 4.0 mmol/L (3.5-5.1); Sodium 134 mmol/L (135-145); eGFR > 60.00
[2025-05-19 08:10] VITALS: BP 136/54
[2025-05-19 08:44] LABS: Glucose - Point of Care 135 mg/dl (70-99)
[2025-05-19] MEDS: NOVOLOG FLEXPEN-LOW RESISTANCE SC ×2 (10:08→15:44)
[2025-05-19] MEDS: PLAVIX 75 MG PO (10:09)
[2025-05-19] MEDS: PROTONIX 40 MG PO (10:09)
[2025-05-19] MEDS: VALTREX 1000 MG PO ×2 (10:09→19:54)
[2025-05-19] MEDS: FLOMAX 0.4 MG PO (10:09)
[2025-05-19] MEDS: ASPIR LOW (ENTERIC COATED) 81 MG PO (10:09)
[2025-05-19] MEDS: COREG 25 MG PO ×2 (10:09→19:54)
[2025-05-19] MEDS: XYLOCAINE 4% TOPICAL SOLUTION 5 ML TOPICAL (10:10)
[2025-05-19] MEDS: MIRALAX PO (10:10)
[2025-05-19] MEDS: DESENEX/MITRAZOL/ZEASORB 1 APPLIC TOPICAL ×2 (10:13→19:57)
[2025-05-19] MEDS: DESITIN MAXIMUM STRENGTH PASTE 1 APPLIC TOPICAL (10:17)
[2025-05-19] MEDS: ANTIFUNGAL CLEAR 1 APPLIC TOPICAL ×2 (10:18→19:57)
--- NOTE | 2025-05-19 10:37 | W.PN.ID1 ---
Date of Service
Date of Service: May 19, 2025
Today's Communication
- continue diflucan 150 mg PO weekly dose for 4 weeks
- start augmentin, stop zosyn, continue for a two week course 05/15-05/28
- continue valacyclovir 1000 mg PO BID x14 days 05/15-05/28
Assessment / Plan
Intertrigo
Superimposed cellulitis
Vesicular rash of the penis and scrotum- possible HSV
DM2
- wound culture in progress- polymicrobial as expected: GNR, MSSA, strep
- 1 of 2 sets of blood cultures with s epidermidis - contamination
- HSV PCR pending
- parker was reinserted
- continue diflucan 150 mg PO weekly dose for 4 weeks
- start augmentin, stop zosyn, continue for a two week course 05/15-05/28
- continue valacyclovir 1000 mg PO BID x14 days 05/15-05/28
- appreciate wound care consult
- would tighten blood glucose control to promote healing
Chief Complaint
-: Other (intertrigo and cellulitis)
Subjective / Review of Systems
afebrile
bp stable
daughter refused desitin cream and antifungal cream yesterday, in place today
Vital Signs / Physical Exam
Vital Signs
Vital Signs
Temp Pulse Resp BP Pulse Ox
97.7 F 69 18 136/54 97
05/19/25 08:10 05/19/25 10:09 05/19/25 08:10 05/19/25 10:09 05/19/25 08:10
Physical Exam
Constitutional: No Acute Distress
Cardiovascular: Regular Rate and S1/S2; Negative Murmur or Rub
Pulmonary: Clear and Symmetric; Negative Wheezes or Rales
Gastrointestinal: Soft, Non Tender, Non Distended and Normal Bowel Sounds
Skin: Warm and Dry; Negative Rash or Jaundice
Wound: Other (scrotum, perineal/groin areas less red, ongoing drainage from the scrotum)
Objective Data
Lab Data
Lab Results
05/18/25 12:35
05/19/25 05:52
Estimated Creat Clear 100 ml/min 05/19/25 05:52
Lactic Acid Cancelled 05/15/25 15:15
Total Bilirubin 0.2 mg/dl (0.2-1.3) 05/17/25 06:27
AST 15 U/L (17-59) L 05/17/25 06:27
ALT 13 U/L (0-50) 05/17/25 06:27
Alkaline Phosphatase 70 U/L (38-126) 05/17/25 06:27
Most recent labs reviewed.
Micro Results:
05/15/25 11:12 Blood Culture - Preliminary
Blood/Venous No Growth in 72 hours- Final report to follow
05/15/25 16:49 Wound Culture - Final
Groin - Left S aureus-Methicillin Sensitive
Gram negative bacilli
Streptococcus species
Additional testing on request
Gram Stain - Final
05/15/25 11:48 Blood Culture - Preliminary
Blood/Venous Staphylococcus epidermidis
Gram Stain - Preliminary
05/15/25 20:05 MRSA Screen - Final
Nose No Methicillin Resistant Staphylococcus aureus isolated.
--- NOTE | 2025-05-19 11:51 | CM ---
CM reviewed chart. Updated clinical sent to SNF via [facility] along with wound care needs. Patient will discharge on PO abx per ID note.
PLAN: discharge back to [facility] via ambulance. Medical necessity on chart.
[2025-05-19] MEDS: LIDOCAINE URO-JET 2% TOPICAL ×2 (12:10→19:22)
[2025-05-19 12:19] LABS: Glucose - Point of Care 205 mg/dl (70-99)
--- NOTE | 2025-05-19 13:47 | W.PN.HOSP.TC ---
Today's Communication/Plan
-
Continue antibiotics as outlined
Continue local wound care
Assessment / Plan
Assessment / Plan
79yo M with CAD s/p PCI, dementia, HTN, HLD, diastolic CHF, PAD with non-healing b/l LE wounds s/p angioplasty and stent on 01/22/25, functional paraplegia, chronic ambulatory d/o, bedbound, FRANCESCO brought with concern of groin wounds and vesicles,
suspicious for combined bacteria and fungal infection with possible herpes
Impression:
Severe intertrigo
Superimposing cellulitis.
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
Sacral pressure ulcer stage III present on admission
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
Other conditions
PAD with prior history of lower extremity revascularization bilaterally.
Type 2 diabetes.
Essential hypertension.
GERD.
BPH baseline obstructive sleep apnea.
Protein calorie malnutrition, mild to moderate.
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
Chronic ambulatory disorder, bedridden long-term resident
Plan
Intertrigo
Superimposing scrotal/inguinal area cellulitis
Penile vesicular rash with concern for HSV.
Staph epidermidis 1/2 in cultures likely contaminant
Continue local care.
Continue Diflucan
Antibiotics narrowed from vancomycin and Zosyn to Zosyn alone and to Augmentin
Continue valacyclovir for total of 14 days pending HSV PCR
Continue daily wound care with analgesia
Millan catheter inserted on admission to avoid wound contamination. Continue.
PAD with multiple revascularizations lower extremities per
Chronic wounds. No evidence for infection.
Continue wound care.
Continue Plavix and aspirin
ASCVD
Preadmission regimen including Coreg, statin, DAPT
Type 2 diabetes
Hemoglobin A1c 9.2
Continue insulin Lantus adjusting the dose.
Continue basal bolus protocol
Hold SGLT2 inhibitor acutely
#dysphagia
Remains with aspiration risk
chronic
dysphagia diet
Anticipated Discharge: 24 - 48 hours
Subjective/Interval History
-
Date of Service: May 19, 2025
Objective Data
-
Labs:
Laboratory Results
05/19/25
05:52
Sodium 134 L
Potassium 4.0
Chloride 106
Carbon Dioxide 24
BUN 13
Creatinine 0.6 L
Glucose 150 H
Calcium 8.8
Vital Signs:
Vital Signs
Temp Pulse Resp BP Pulse Ox
97.7 F 69 18 136/54 97
05/19/25 08:10 05/19/25 10:09 05/19/25 08:10 05/19/25 10:09 05/19/25 08:10
I&O
05/18/25 05/19/25 05/20/25
06:59 06:59 06:59
Intake Total 770 / 770 1160 / 1160
Output Total 2900 / 2900 3950 / 3950
Balance -2130 / -2130 -2790 / -2790
Physical Exam
-
General: Well Developed and No Apparent Distress
HEENT: Normocephalic, Atraumatic and Moist Mucous Membranes
Respiratory: Clear to Auscultation
Cardiac: Regular Rhythm and S1/S2; Negative Murmur, Rub or Gallop
GI: Soft, Nontender, Nondistended and Normal Bowel Sounds; Negative Organomegaly
Rectal: Deferred by Provider
Musculoskeletal: No Clubbing, No Cyanosis and No Edema
Skin: Negative Rash
Neuro: Nonfocal/Grossly Intact
[2025-05-19] MEDS: AUGMENTIN 875 MG/125 MG 1 TABLET PO ×2 (15:45→19:54)
[2025-05-19 15:54] VITALS: BP 138/51
[2025-05-19] MEDS: LOVENOX 40 MG SC (17:34)
[2025-05-19] MEDS: NOVOLOG FLEXPEN-LOW RESISTANCE 1 UNITS SC (18:00)
[2025-05-19 18:52] LABS: Glucose - Point of Care 195 mg/dl (70-99)
[2025-05-19] MEDS: TYLENOL 650 MG PO (21:15)
[2025-05-19] MEDS: LIPITOR 10 MG PO (21:15)
[2025-05-19] MEDS: LANTUS 0.18 UNITS SC (21:28)
[2025-05-19 21:55] LABS: Glucose - Point of Care 255 mg/dl (70-99)
[2025-05-19 23:39] VITALS: BP 132/45
--- NOTE | 2025-05-20 03:18 | DOWNTIME ---
There was a [employer] Downtime on 05/20/2025 from 0100 to 05/20/2025 at 0255. Downtime documentation of patient's care, including medication administrations, has been reconciled in the electronic record per guidelines. Refer to the
patient's paper chart under the miscellaneous tab to see printed paper medication records and downtime forms.
[2025-05-20 05:20] VITALS: BMI 29.5
[2025-05-20 07:12] LABS: Hematocrit 31.0 % (39.0-52.0); Hemoglobin 9.6 g/dL (13.0-18.0); Mean Corp Hgb Conc. 31.0 g/dL (33.0-37.0); Mean Corpuscular Volume 81.6 fL (80.0-94.0); Nucleated Red Blood Cells % 0 % (-); Platelet Count 475 10^3/uL (130-400); Red Cell Dist. Width 17.2 % (11.5-14.5)
[2025-05-20 07:38] LABS: Blood Urea Nitrogen 11 mg/dl (9-20); Calcium 8.9 mg/dl (8.4-10.2); Carbon Dioxide 24 mmol/L (22-30); Chloride 106 mmol/L (98-107); Estimated Creatinine Clearance 100 ml/min; Glucose 166 mg/dl (70-99); Potassium 3.8 mmol/L (3.5-5.1); Sodium 132 mmol/L (135-145); eGFR > 60.00
[2025-05-20 08:10] VITALS: BP 133/49
[2025-05-20 08:11] LABS: Glucose - Point of Care 164 mg/dl (70-99)
[2025-05-20] MEDS: NOVOLOG FLEXPEN-LOW RESISTANCE 1 UNITS SC (09:02)
[2025-05-20] MEDS: PROTONIX 40 MG PO (09:03)
[2025-05-20] MEDS: AUGMENTIN 875 MG/125 MG 1 TABLET PO ×2 (09:03→21:10)
[2025-05-20] MEDS: VALTREX 1000 MG PO ×2 (09:03→21:10)
[2025-05-20] MEDS: ASPIR LOW (ENTERIC COATED) 81 MG PO (09:03)
[2025-05-20] MEDS: COREG 25 MG PO ×2 (09:03→21:15)
[2025-05-20] MEDS: LIDOCAINE URO-JET 2% TOPICAL ×2 (09:04→21:07)
[2025-05-20] MEDS: TYLENOL 650 MG PO ×2 (09:04→17:14)
[2025-05-20] MEDS: MIRALAX PO (09:04)
[2025-05-20] MEDS: PLAVIX 75 MG PO (09:04)
[2025-05-20] MEDS: FLOMAX 0.4 MG PO (09:04)
[2025-05-20] MEDS: ANTIFUNGAL CLEAR 1 APPLIC TOPICAL ×2 (09:12→21:15)
--- NOTE | 2025-05-20 11:11 | W.PN.ID1 ---
Date of Service
Date of Service: May 20, 2025
Today's Communication
- HSV PCR pending
- continue diflucan 150 mg PO weekly dose for 4 weeks 05/15-06/05
- continue augmentin, continue for a two week course 05/15-05/28
- continue valacyclovir 1000 mg PO BID x14 days 05/15-05/28
Assessment / Plan
Intertrigo
Superimposed cellulitis
Vesicular rash of the penis and scrotum- possible HSV
DM2
- wound culture in progress- polymicrobial as expected: GNR, MSSA, strep
- 1 of 2 sets of blood cultures with s epidermidis - contamination
- HSV PCR pending
- parker was reinserted
- continue diflucan 150 mg PO weekly dose for 4 weeks 05/15-06/05
- continue augmentin, continue for a two week course 05/15-05/28
- continue valacyclovir 1000 mg PO BID x14 days 05/15-05/28
- appreciate wound care consult
- would tighten blood glucose control to promote healing
Chief Complaint
-: Other (intertrigo and cellulitis)
Subjective / Review of Systems
afebrile
bp stable
no events overnight
Vital Signs / Physical Exam
Vital Signs
Vital Signs
Temp Pulse Resp BP Pulse Ox
97.7 F 65 18 133/49 96
05/20/25 08:10 05/20/25 09:03 05/20/25 08:10 05/20/25 09:03 05/20/25 08:10
Physical Exam
Constitutional: No Acute Distress
Cardiovascular: Regular Rate and S1/S2; Negative Murmur or Rub
Pulmonary: Clear and Symmetric; Negative Wheezes or Rales
Gastrointestinal: Soft, Non Tender, Non Distended and Normal Bowel Sounds
Genito-Urinary: Other (groin now pink no longer frankly erythematous, less tender, less drainage)
Skin: Warm and Dry; Negative Rash or Jaundice
Objective Data
Lab Data
Lab Results
05/20/25 06:53
05/20/25 06:53
Estimated Creat Clear 100 ml/min 05/20/25 06:53
Lactic Acid Cancelled 05/15/25 15:15
Total Bilirubin 0.2 mg/dl (0.2-1.3) 05/17/25 06:27
AST 15 U/L (17-59) L 05/17/25 06:27
ALT 13 U/L (0-50) 05/17/25 06:27
Alkaline Phosphatase 70 U/L (38-126) 05/17/25 06:27
Most recent labs reviewed.
Micro Results:
05/15/25 11:12 Blood Culture - Preliminary
Blood/Venous No Growth in 4 days- Final report to follow
05/15/25 16:49 Wound Culture - Final
Groin - Left S aureus-Methicillin Sensitive
Gram negative bacilli
Streptococcus species
Additional testing on request
Gram Stain - Final
05/15/25 11:48 Blood Culture - Preliminary
Blood/Venous Staphylococcus epidermidis
Gram Stain - Preliminary
05/15/25 20:05 MRSA Screen - Final
Nose No Methicillin Resistant Staphylococcus aureus isolated.
[2025-05-20 13:00] LABS: Glucose - Point of Care 203 mg/dl (70-99)
[2025-05-20] MEDS: NOVOLOG FLEXPEN-LOW RESISTANCE 2 UNITS SC (13:14)
--- NOTE | 2025-05-20 14:04 | W.PN.HOSP.TC ---
Today's Communication/Plan
-
Continue wound care
Continue antibiotics
Maintain Millan to avoid wound contamination/irritation
Assessment / Plan
Assessment / Plan
79yo M with CAD s/p PCI, dementia, HTN, HLD, diastolic CHF, PAD with non-healing b/l LE wounds s/p angioplasty and stent on 01/22/25, functional paraplegia, chronic ambulatory d/o, bedbound, FRANCESCO brought with concern of groin wounds and vesicles,
suspicious for combined bacteria and fungal infection with possible herpes
Impression:
Severe intertrigo
Superimposing cellulitis.
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
Sacral pressure ulcer stage III present on admission
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
Other conditions
PAD with prior history of lower extremity revascularization bilaterally.
Type 2 diabetes.
Essential hypertension.
GERD.
BPH baseline obstructive sleep apnea.
Protein calorie malnutrition, mild to moderate.
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
Chronic ambulatory disorder, bedridden assisted resident
Plan
Intertrigo
Superimposing scrotal/inguinal area cellulitis
Penile vesicular rash with concern for HSV.
Staph epidermidis 1/2 in cultures likely contaminant
Continue local care.
Continue Diflucan
Antibiotics narrowed from vancomycin and Zosyn to Zosyn alone and to Augmentin
Continue valacyclovir for total of 14 days pending HSV PCR
Continue daily wound care with analgesia
Millan catheter inserted on admission to avoid wound contamination. Continue.
PAD with multiple revascularizations lower extremities per
Chronic wounds. No evidence for infection.
Continue wound care.
Continue Plavix and aspirin
ASCVD
Preadmission regimen including Coreg, statin, DAPT
Type 2 diabetes
Hemoglobin A1c 9.2
Continue insulin Lantus adjusting the dose.
Continue basal bolus protocol
Hold SGLT2 inhibitor acutely
#dysphagia
Remains with aspiration risk
chronic
dysphagia diet
Anticipated Discharge: 24 - 48 hours
Subjective/Interval History
-
Date of Service: May 20, 2025
Objective Data
-
Labs:
Laboratory Results
05/20/25
06:53
WBC 11.5 H
Hgb 9.6 L
Hct 31.0 L
Plt Count 475 H
Sodium 132 L
Potassium 3.8
Chloride 106
Carbon Dioxide 24
BUN 11
Creatinine 0.5 L
Glucose 166 H
Calcium 8.9
Vital Signs:
Vital Signs
Temp Pulse Resp BP Pulse Ox
97.7 F 65 18 133/49 96
05/20/25 08:10 05/20/25 09:03 05/20/25 08:10 05/20/25 09:03 05/20/25 08:10
I&O
05/19/25 05/20/25 05/21/25
06:59 06:59 06:59
Intake Total 1160 / 1160 360 / 360
Output Total 3950 / 3950 1525 / 1525 525 / 525
Balance -2790 / -2790 -1165 / -1165 -525 / -525
Physical Exam
-
General: Well Developed and No Apparent Distress
HEENT: Normocephalic, Atraumatic and Moist Mucous Membranes
Respiratory: Clear to Auscultation
Cardiac: Regular Rhythm and S1/S2; Negative Murmur, Rub or Gallop
GI: Soft, Nontender, Nondistended and Normal Bowel Sounds; Negative Organomegaly
Rectal: Deferred by Provider
Musculoskeletal: No Clubbing, No Cyanosis and No Edema
Skin: Negative Rash
Neuro: Nonfocal/Grossly Intact
[2025-05-20 16:07] VITALS: BP 135/44
[2025-05-20 16:51] LABS: Glucose - Point of Care 139 mg/dl (70-99)
[2025-05-20] MEDS: NOVOLOG FLEXPEN-LOW RESISTANCE SC (17:01)
[2025-05-20 17:10] LABS: HSV 1 Subtype by PCR Not Detected; HSV 2 Subtype by PCR Detected
[2025-05-20] MEDS: LOVENOX 40 MG SC (17:14)
[2025-05-20] MEDS: LIPITOR 10 MG PO (21:10)
[2025-05-20] MEDS: LANTUS 0.18 UNITS SC (21:22)
[2025-05-20 21:23] LABS: Glucose - Point of Care 170 mg/dl (70-99)
[2025-05-20] MEDS: FLUSH (NSS) 1 FLUSH IV (21:24)
[2025-05-20 23:18] VITALS: BP 141/50
[2025-05-21 06:00] VITALS: BMI 29.5
[2025-05-21 08:29] VITALS: BP 130/45
[2025-05-21 08:46] LABS: Glucose - Point of Care 127 mg/dl (70-99)
[2025-05-21] MEDS: NOVOLOG FLEXPEN-LOW RESISTANCE SC ×2 (09:09→17:48)
[2025-05-21] MEDS: ASPIR LOW (ENTERIC COATED) 81 MG PO (09:11)
[2025-05-21] MEDS: AUGMENTIN 875 MG/125 MG 1 TABLET PO ×2 (09:11→20:54)
[2025-05-21] MEDS: PLAVIX 75 MG PO (09:11)
[2025-05-21] MEDS: VALTREX 1000 MG PO ×2 (09:11→20:53)
[2025-05-21] MEDS: FLOMAX 0.4 MG PO (09:12)
[2025-05-21] MEDS: TYLENOL 650 MG PO (09:12)
[2025-05-21] MEDS: PROTONIX 40 MG PO (09:12)
[2025-05-21] MEDS: LIDOCAINE URO-JET 2% TOPICAL ×2 (09:12→21:25)
[2025-05-21] MEDS: COREG 25 MG PO ×2 (09:12→20:54)
[2025-05-21] MEDS: MIRALAX PO (09:13)
[2025-05-21] MEDS: ANTIFUNGAL CLEAR 1 APPLIC TOPICAL (09:35)
[2025-05-21 12:34] LABS: Glucose - Point of Care 150 mg/dl (70-99)
[2025-05-21] MEDS: NOVOLOG FLEXPEN-LOW RESISTANCE 1 UNITS SC (12:51)
[2025-05-21] MEDS: OFIRMEV 100 IV (12:56)
--- NOTE | 2025-05-21 15:27 | W.PN.HOSP.TC ---
Today's Communication/Plan
-
Continue oral antibiotics
Continue wound care
Assessment / Plan
Assessment / Plan
79yo M with CAD s/p PCI, dementia, HTN, HLD, diastolic CHF, PAD with non-healing b/l LE wounds s/p angioplasty and stent on 01/22/25, functional paraplegia, chronic ambulatory d/o, bedbound, FRANCESCO brought with concern of groin wounds and vesicles,
suspicious for combined bacteria and fungal infection with possible herpes
Impression:
Severe intertrigo
Superimposing cellulitis.
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
Sacral pressure ulcer stage III present on admission
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
Other conditions
PAD with prior history of lower extremity revascularization bilaterally.
Type 2 diabetes.
Essential hypertension.
GERD.
BPH baseline obstructive sleep apnea.
Protein calorie malnutrition, mild to moderate.
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
Chronic ambulatory disorder, bedridden residential resident
Plan
Intertrigo
Superimposing scrotal/inguinal area cellulitis
Penile vesicular rash with concern for HSV.
Staph epidermidis 1/2 in cultures likely contaminant
Continue local care.
Continue Diflucan
Antibiotics narrowed from vancomycin and Zosyn to Zosyn alone and to Augmentin
Continue valacyclovir for total of 14 days pending HSV PCR
Continue daily wound care with analgesia
Millan catheter inserted on admission to avoid wound contamination. Continue.
PAD with multiple revascularizations lower extremities per
Chronic wounds. No evidence for infection.
Continue wound care.
Continue Plavix and aspirin
ASCVD
Preadmission regimen including Coreg, statin, DAPT
Type 2 diabetes
Hemoglobin A1c 9.2
Continue insulin Lantus adjusting the dose.
Continue basal bolus protocol
Hold SGLT2 inhibitor acutely
#dysphagia
Remains with aspiration risk
chronic
dysphagia diet
Anticipated Discharge: 24 - 48 hours
Subjective/Interval History
-
Date of Service: May 21, 2025
Objective Data
-
Vital Signs:
Vital Signs
Temp Pulse Resp BP Pulse Ox
99.0 F 69 18 130/45 96
05/21/25 08:29 05/21/25 09:12 05/21/25 08:29 05/21/25 09:12 05/21/25 08:29
I&O
05/20/25 05/21/25 05/22/25
06:59 06:59 06:59
Intake Total 360 / 360 480 / 480
Output Total 1525 / 1525 1850 / 1850 625 / 625
Balance -1165 / -1165 -1370 / -1370 -625 / -625
Physical Exam
-
General: Well Developed and No Apparent Distress
HEENT: Normocephalic, Atraumatic and Moist Mucous Membranes
Respiratory: Clear to Auscultation
Cardiac: Regular Rhythm and S1/S2; Negative Murmur, Rub or Gallop
GI: Soft, Nontender, Nondistended and Normal Bowel Sounds; Negative Organomegaly
Rectal: Deferred by Provider
Musculoskeletal: No Clubbing, No Cyanosis and No Edema
Skin: Negative Rash
Neuro: Nonfocal/Grossly Intact
--- NOTE | 2025-05-21 15:32 | CM ---
Patient for return to SNF, [facility]. Please call report to [phone] [phone]. CM called to Liaison and requested call back to confirm prior level of functioning. CM will continue to follow for discharge planning needs. CM will
continue to follow for discharge planning needs.
Plan; return to SNF; pending medical treatment plan
--- NOTE | 2025-05-21 15:36 | W.PN.ID1 ---
Date of Service
Date of Service: May 21, 2025
Today's Communication
- continue diflucan 150 mg PO weekly dose for 4 weeks 05/15-06/05
- continue augmentin, continue for a two week course 05/15-05/28
- continue valacyclovir 1000 mg PO BID x14 days 05/15-05/28
- continue topical miconazole powder BID and topical zinc oxide BID PRN until fully healed
- stable for dc from ID perspective
Assessment / Plan
Intertrigo
Superimposed cellulitis
Vesicular rash of the penis and scrotum- possible HSV
DM2
- wound culture in progress- polymicrobial as expected: GNR, MSSA, strep
- 1 of 2 sets of blood cultures with s epidermidis - contamination
- HSV PCR positive for HSV2
- continue diflucan 150 mg PO weekly dose for 4 weeks 05/15-06/05
- continue augmentin, continue for a two week course 05/15-05/28
- continue valacyclovir 1000 mg PO BID x14 days 05/15-05/28
- continue topical miconazole powder BID and topical zinc oxide BID PRN until fully healed
- appreciate wound care consult
- would tighten blood glucose control to promote healing
- stable for dc from ID perspective
Chief Complaint
-: Other (intertrigo and cellulitis)
Subjective / Review of Systems
afebrile
bp stable
no events overnight
Vital Signs / Physical Exam
Vital Signs
Vital Signs
Temp Pulse Resp BP Pulse Ox
99.0 F 69 18 130/45 96
05/21/25 08:29 05/21/25 09:12 05/21/25 08:29 05/21/25 09:12 05/21/25 08:29
Physical Exam
Constitutional: No Acute Distress and Chronically Ill
Cardiovascular: Regular Rate and S1/S2; Negative Murmur or Rub
Pulmonary: Clear and Symmetric; Negative Wheezes or Rales
Gastrointestinal: Soft, Non Tender, Non Distended and Normal Bowel Sounds
Skin: Warm, Dry and Rash (scrotal area no longer draining, perineal/groin area now a pale pink, no longer acutely tender in the groin); Negative Jaundice
Objective Data
Lab Data
Lab Results
05/20/25 06:53
05/20/25 06:53
Estimated Creat Clear 100 ml/min 05/20/25 06:53
Lactic Acid Cancelled 05/15/25 15:15
Total Bilirubin 0.2 mg/dl (0.2-1.3) 05/17/25 06:27
AST 15 U/L (17-59) L 05/17/25 06:27
ALT 13 U/L (0-50) 05/17/25 06:27
Alkaline Phosphatase 70 U/L (38-126) 05/17/25 06:27
Most recent labs reviewed.
Micro Results:
05/15/25 11:12 Blood Culture - Final
Blood/Venous No Growth - Final Report
05/15/25 16:49 Wound Culture - Final
Groin - Left S aureus-Methicillin Sensitive
Gram negative bacilli
Streptococcus species
Additional testing on request
Gram Stain - Final
05/15/25 11:48 Blood Culture - Preliminary
Blood/Venous Staphylococcus epidermidis
Gram Stain - Preliminary
05/15/25 20:05 MRSA Screen - Final
Nose No Methicillin Resistant Staphylococcus aureus isolated.
[2025-05-21 17:21] LABS: Glucose - Point of Care 125 mg/dl (70-99)
[2025-05-21] MEDS: LOVENOX 40 MG SC (17:44)
[2025-05-21] MEDS: BENADRYL 25 MG IV (17:51)
[2025-05-21] MEDS: ANTIFUNGAL CLEAR TOPICAL (20:57)
[2025-05-21] MEDS: LANTUS 0.18 UNITS SC (22:10)
[2025-05-21] MEDS: LIPITOR 10 MG PO (22:10)
[2025-05-21 22:14] LABS: Glucose - Point of Care 207 mg/dl (70-99)
[2025-05-21 23:09] VITALS: BP 149/52
[2025-05-22 05:49] VITALS: BMI 29.4
[2025-05-22 07:59] VITALS: BP 133/54
[2025-05-22 08:05] LABS: Glucose - Point of Care 131 mg/dl (70-99)
[2025-05-22] MEDS: NOVOLOG FLEXPEN-LOW RESISTANCE SC (08:14)
[2025-05-22] MEDS: AUGMENTIN 875 MG/125 MG 1 TABLET PO (08:16)
[2025-05-22] MEDS: PLAVIX 75 MG PO (08:16)
[2025-05-22] MEDS: PROTONIX 40 MG PO (08:16)
[2025-05-22] MEDS: VALTREX 1000 MG PO (08:16)
[2025-05-22] MEDS: ASPIR LOW (ENTERIC COATED) 81 MG PO (08:16)
[2025-05-22] MEDS: MIRALAX 17 GRAMS PO (08:16)
[2025-05-22] MEDS: COREG 25 MG PO (08:16)
[2025-05-22] MEDS: FLOMAX 0.4 MG PO (08:16)
[2025-05-22] MEDS: LIDOCAINE URO-JET 2% 1 SYRINGE TOPICAL (08:17)
[2025-05-22] MEDS: DESITIN MAXIMUM STRENGTH PASTE 1 APPLIC TOPICAL (08:21)
[2025-05-22] MEDS: BENADRYL 25 MG IV (08:25)
[2025-05-22] MEDS: ANTIFUNGAL CLEAR TOPICAL (08:27)
[2025-05-22] MEDS: DESENEX/MITRAZOL/ZEASORB 1 APPLIC TOPICAL (08:27)
[2025-05-22 10:08] LABS: Hematocrit 29.9 % (39.0-52.0); Hemoglobin 9.5 g/dL (13.0-18.0); Mean Corp Hgb Conc. 31.8 g/dL (33.0-37.0); Mean Corpuscular Volume 78.1 fL (80.0-94.0); Nucleated Red Blood Cells % 0 % (-); Platelet Count 488 10^3/uL (130-400); Red Cell Dist. Width 17.0 % (11.5-14.5)
[2025-05-22 10:30] LABS: Blood Urea Nitrogen 13 mg/dl (9-20); Calcium 8.9 mg/dl (8.4-10.2); Carbon Dioxide 22 mmol/L (22-30); Chloride 103 mmol/L (98-107); Estimated Creatinine Clearance 100 ml/min; Glucose 172 mg/dl (70-99); Potassium 4.0 mmol/L (3.5-5.1); Sodium 130 mmol/L (135-145); eGFR > 60.00
--- NOTE | 2025-05-22 12:38 | W.PN.ID1 ---
Date of Service
Date of Service: May 22, 2025
Today's Communication
- continue diflucan 150 mg PO weekly dose for 4 weeks 05/15-06/05
- continue augmentin, continue for a two week course 05/15-05/28
- continue valacyclovir 1000 mg PO BID x14 days 05/15-05/28
- continue topical miconazole powder BID and topical zinc oxide BID PRN until fully healed
Assessment / Plan
Intertrigo
Superimposed cellulitis
Vesicular rash of the penis and scrotum- possible HSV
DM2
- wound culture in progress- polymicrobial as expected: GNR, MSSA, strep
- 1 of 2 sets of blood cultures with s epidermidis - contamination
- HSV PCR positive for HSV2
- continue diflucan 150 mg PO weekly dose for 4 weeks 05/15-06/05
- continue augmentin, continue for a two week course 05/15-05/28
- continue valacyclovir 1000 mg PO BID x14 days 05/15-05/28
- continue topical miconazole powder BID and topical zinc oxide BID PRN until fully healed
- appreciate wound care consult
- would tighten blood glucose control to promote healing
- stable for dc from ID perspective
Chief Complaint
-: Other (intertrigo and cellulitis)
Subjective / Review of Systems
afebrile
bp stable
no events overnight
reports no further pain in the groin
Vital Signs / Physical Exam
Vital Signs
Vital Signs
Temp Pulse Resp BP Pulse Ox
98.5 F 70 16 133/54 96
05/22/25 07:59 05/22/25 08:16 05/22/25 07:59 05/22/25 08:16 05/22/25 07:59
Physical Exam
Constitutional: No Acute Distress
Cardiovascular: Regular Rate and S1/S2; Negative Murmur or Rub
Pulmonary: Clear and Symmetric; Negative Wheezes or Rales
Gastrointestinal: Soft, Non Tender, Non Distended and Normal Bowel Sounds
Skin: Warm and Dry; Negative Rash or Jaundice
Wound: Other (scrotal area no longer draining, perineal/groin area now a pale pink, no longer acutely tender in the groin)
Objective Data
Lab Data
Lab Results
05/22/25 09:29
05/22/25 09:29
Estimated Creat Clear 100 ml/min 05/22/25 09:29
Lactic Acid Cancelled 05/15/25 15:15
Total Bilirubin 0.2 mg/dl (0.2-1.3) 05/17/25 06:27
AST 15 U/L (17-59) L 05/17/25 06:27
ALT 13 U/L (0-50) 05/17/25 06:27
Alkaline Phosphatase 70 U/L (38-126) 05/17/25 06:27
Most recent labs reviewed.
Micro Results:
05/15/25 11:12 Blood Culture - Final
Blood/Venous No Growth - Final Report
05/15/25 16:49 Wound Culture - Final
Groin - Left S aureus-Methicillin Sensitive
Gram negative bacilli
Streptococcus species
Additional testing on request
Gram Stain - Final
05/15/25 11:48 Blood Culture - Preliminary
Blood/Venous Staphylococcus epidermidis
Gram Stain - Preliminary
05/15/25 20:05 MRSA Screen - Final
Nose No Methicillin Resistant Staphylococcus aureus isolated.
Care Review
Plan reviewed with: Physician (Dr Sutton - marissa)
[2025-05-22 12:45] LABS: Glucose - Point of Care 235 mg/dl (70-99)
[2025-05-22] MEDS: NOVOLOG FLEXPEN-LOW RESISTANCE 2 UNITS SC (12:49)
--- NOTE | 2025-05-22 13:01 | W.DS.TRANS ---
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
-
Discharge Instructions:
Discharge Diagnosis/Procedures Impression:
Severe intertrigo
Superimposing cellulitis.
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
Sacral pressure ulcer stage III present on
admission
Chronic bilateral lower extremity trophic wounds
secondary to PAD and diabetes
Other conditions
PAD with prior history of lower extremity
revascularization bilaterally.
Type 2 diabetes.
Essential hypertension.
GERD.
BPH baseline obstructive sleep apnea.
Protein calorie malnutrition, mild to moderate.
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
Chronic ambulatory disorder, bedridden nursing
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
Instructions:
Stand-Alone Forms:
Changes to Home Medications: Yes
Discharge Medications:
DC Medications w/original date entered in [facility]
acetaminophen 325 mg tablet 650 mg PO Q6HPRN PRN mild pain 04/04/24
aspirin 81 mg tablet,delayed release 81 mg PO DAILY Blood Clot Prevention/Tx 04/04/24
carvedilol 25 mg tablet 25 mg PO BID Blood Pressure 04/04/24
ergocalciferol (vitamin D2) 1,250 mcg (50,000 unit) capsule 1,250 mcg PO MO Supplement 04/04/24
furosemide 40 mg tablet 20 mg PO DAILY Fluid Retention/Swelling 04/04/24
insulin aspart U-100 100 unit/mL (3 mL) subcutaneous pen 0 sliding scale dose SC ACHS Diabetes 04/04/24
omeprazole 20 mg tablet,delayed release 20 mg PO DAILY Gastrointestinal Issue 04/04/24
tamsulosin 0.4 mg capsule 0.4 mg PO DAILY Urinary Issue 04/04/24
zinc oxide 12 % topical cream 1 applic topical TID PERIANAL AREA 04/04/24
clopidogrel 75 mg tablet 75 mg PO DAILY #30 tabs 04/30/24
atorvastatin 10 mg tablet 10 mg PO HS High Cholesterol 10/22/24
bisacodyl 10 mg rectal suppository (Dulcolax (bisacodyl)) 10 mg CO DAILYPRN PRN IF NO BM MOM 10/22/24
loperamide 2 mg tablet 2 mg PO Q8HPRN PRN DIARRHEA 10/22/24
magnesium hydroxide 400 mg/5 mL oral suspension (Milk of Magnesia) 2,400 mg PO HSPRN PRN IF NO BM BY 3RD DAY 10/22/24
miconazole nitrate 2 % topical powder (Antifungal (miconazole)) 1 applic topical BID REDNESS,FOLDS,ABD FOLDS 10/22/24
potassium chloride 20 mEq tablet,extended release 20 meq PO DAILY Supplement 10/22/24
sodium chloride-hypochlorous acid 0.033 % irrigation solution (Vashe) 1 irrig irrigation DAILY LEFT HEEL 10/22/24
sodium chloride-hypochlorous acid 0.033 % irrigation solution (Vashe) 1 irrig irrigation DAILYPRN PRN LEFT HEEL 10/22/24
empagliflozin 10 mg tablet (Jardiance) 10 mg PO DAILY Diabetes 12/26/24
insulin glargine 100 unit/mL subcutaneous solution (Lantus U-100 Insulin) 15 unit SC HS Diabetes 05/15/25
amoxicillin 875 mg-potassium clavulanate 125 mg tablet 1 tab PO Q12 #28 tabs 05/22/25
fluconazole 150 mg tablet 150 mg PO REEDER@0800 #4 tabs 05/22/25
valacyclovir 500 mg tablet 1,000 mg (2 x 500 mg) PO BID #56 tabs 05/22/25
Home Medication Changes
Antibiotics
Pending Results: No
--- NOTE | 2025-05-22 13:41 | CM ---
entered order for discharge.
Spoke with Almita Butterfield update with wound care instruction sent via care port.
Pt accepted .
Spoke with dgt Collette she is in agreement with discharge. [facility] reviewed with her . Collette agrees with discharge.
[facility]
report to [phone]
fax [phone].
PLAN Return to [facility] via ambulance
[2025-05-22 15:48] LABS: Glucose - Point of Care 260 mg/dl (70-99)
[2025-05-22] MEDS: NOVOLOG FLEXPEN-LOW RESISTANCE 3 UNITS SC (15:51)
[2025-05-22 15:55] VITALS: BP 133/66
== END 2025-05-22 18:13 | DRG 727 ==
LOC: 2 NORTH 17:13
PROVIDERS: Clinical Nurse Specialist Family Health; Internal Medicine; Physician Assistant; ADMITTING PHYSICIAN Hospitalist; ATTENDING PHYSICIAN Internal Medicine; CONSULT PHYSICIAN Student in an Organized Health Care Education/Training Program; EMERGENCY PHYSICIAN Emergency Medicine; FAMILY PHYSICIAN Internal Medicine
DX: N49.2 Inflammatory disorders of scrotum (principal); L89.153 Pressure ulcer of sacral region, stage 3; R53.2 Functional quadriplegia; L03.314 Cellulitis of groin; I50.32 Chronic diastolic (congestive) heart failure; E44.1 Mild protein-calorie malnutrition; L30.4 Erythema intertrigo; Z87.891 Personal history of nicotine dependence; I11.0 Hypertensive heart disease with heart failure; I25.10 Atherosclerotic heart disease of native coronary artery without angina pectoris; K59.00 Constipation, unspecified; E11.59 Type 2 diabetes mellitus with other circulatory complications; E11.51 Type 2 diabetes mellitus with diabetic peripheral angiopathy without gangrene; E11.40 Type 2 diabetes mellitus with diabetic neuropathy, unspecified; Z79.02 Long term (current) use of antithrombotics/antiplatelets; R13.10 Dysphagia, unspecified; K21.9 Gastro-esophageal reflux disease without esophagitis; N40.0 Benign prostatic hyperplasia without lower urinary tract symptoms; R26.2 Difficulty in walking, not elsewhere classified; Z74.01 Bed confinement status; B00.9 Herpesviral infection, unspecified; Z79.4 Long term (current) use of insulin; Z79.82 Long term (current) use of aspirin; N50.89 Other specified disorders of the male genital organs; Z79.899 Other long term (current) drug therapy; Z68.29 Body mass index [BMI] 29.0-29.9, adult
CPT/HCPCS: 51702; 74177; 80048; 80053; 81003; 81015; 82962; 83036; 83605; 85025; 87040; 87070; 87147; 87154; 87186; 87205; 87529; 96365; 96375; 99285; Q9967

== ENCOUNTER → 2025-06-10 09:31 | Outpatient (REF) | payer MEDICARE, OTHER, SELFPAY | LOC: DHVS 09:31 | PROVIDERS: ATTENDING PHYSICIAN Surgery Vascular Surgery | DX: I73.9 Peripheral vascular disease, unspecified (principal) | CPT/HCPCS: 93922; 93925; 93978 ==